=== PATIENT | male | born 1935 | race Caucasian/White ===

== ENCOUNTER 2019-09-13 17:09 | Emergency (ER) | payer MEDICARE, OTHER, SELFPAY ==
[2019-09-13 17:15] VITALS: BP 165/90; PULSE 76; RESP 16; TEMP 36.6; O2SAT 95; BMI 23.6
[2019-09-13 17:30] VITALS: BP 149/95; PULSE 69; RESP 16; O2SAT 95
--- NOTE | 2019-09-13 17:31 | ED_ITS ---
Entered by Arlene Henry, acting as scribe for Corin Ledesma MD HPI - Fall General: Chief Complaint: Fall Stated Complaint: fall hit face Time Seen by Provider: 09/13/19 17:31 Source: patient and RN notes reviewed Mode of arrival: ambulatory Limitations: no limitations History of Present Illness: HPI Narrative: 84 yo male presents to ED with complaints of facial pain after he fell today while walking. He said when he is walking downhill his legs will go too fast and he will fall. He doesn't know why his legs do that. He said he landed on his face today and tried to stop with his hands. He said the R side of his face hurts; he has swelling and abrasions to the R side of his face. His R hand is swollen and has abrasions; he said he has no pain in his R hand. He stated this happened about 1644 today. He is on Plavix. complaint: fall Onset (ago): minute(s) (45 (1644)) Fall from: standing Fall witnessed: no Place fall occurred: home Loss of consciousness: None Prolonged down time: no Symptoms prior to fall: none Context: tripped/slipped Location of injury: face Location of injury - extremities: Right: hand (swelling, abrasions) Severity: moderate Quality: dull and aching Associated symptoms-after fall: Reports no associated symptoms; Denies abdominal pain, chest pain, headache(s) or neck pain Review of Systems Const: Denies: fever, chills, body aches or change in appetite Eyes: Denies: blurry vision or eye discomfort Card: Denies: chest pain Resp: Denies: shortness of breath GI: Denies: abdominal pain, nausea, vomiting or diarrhea Musc: Denies: neck pain or back pain Skin/Breast: Denies: rash Neuro: Denies: headache Ronaldo/Lymph: Denies: easy bruising PFSH ED PFSH: Social History Smoking and tobacco status: never smoked Physical Exam Const: COMMON NORMALS: no apparent distress, oriented x3 and healthy appearing HENMT: COMMON NORMALS: normocephalic and head/scalp atraumatic HEAD & SCALP: normocephalic and atraumatic FACE & SINUS: facial abrasion on the right forehead, maxilla and angle of jaw Eye: COMMON NORMALS: PERRL and EOMs intact bilaterally PUPIL: Yes PERRL Neck/C-Spine: COMMON NORMALS: full ROM and supple Chest: COMMONS NORMALS: inspection of chest normal and palpation of chest normal Resp: COMMON NORMALS: normal respiratory effort, no retractions, no use of accessory muscles and clear to auscultation bilaterally AUSCULTATION: clear to auscultation bilaterally Cardio: COMMON NORMALS: regular rate, regular rhythm and no murmurs RATE: regular rate RHYTHM: regular rhythm GI: COMMON NORMALS: normal to inspection, nondistended, normoactive bowel sounds, soft to palpation, non-tender and no masses PALPATION: Yes soft Extremity: COMMON NORMALS: full ROM RIGHT UPPER EXTREMITY: Yes hand & digits (swelling, abrasions) Neuro: COMMON NORMALS: oriented x3, moves all extremities and no focal motor deficits Psych: COMMON NORMALS: mental status grossly normal, thought process normal and cooperative THOUGHT PROCESS: normal thought process Skin: COMMON NORMALS: no rashes or lesions noted and no wounds GENERAL SKIN EXAM: no rashes or lesions noted Course Vital Signs: Vital signs: Vital Signs Temperature 97.8 F 09/13/19 17:15 Pulse Rate 69 09/13/19 17:30 Respiratory Rate 16 09/13/19 18:25 Blood Pressure 149/95 09/13/19 17:30 Pulse Oximetry 93 09/13/19 18:25 MDM - Fall MDM Narrative: Medical decision making narrative: Patient presents here with facial fracture from a fall. Exam is otherwise negative and had no head injury. We will have him follow-up with ENT and he is stable for discharge. Imaging Data^: Other CT: Radiologist's impression: [address] [address] [address] Scan Report Signed Patient: Des Fuller #: [id number] : 1935Acct#:[id number] Age/Sex: 84 / MADM Date: 09/13/19 Loc: ERRoom/Bed: Attending Dr: Ordering Provider/Ordering MD: Corin Ledesma MD Date of Service: 09/13/19 Procedure(s): CT facial bones wo con* [id number] Accession Number(s): [id number] Report Number: [id number] PROCEDURE INFORMATION: Exam: CT Maxillofacial Without Contrast Exam date and time: 09/13/2019 5:55 PM Age: 84 years old Clinical indication: Injury or trauma; Fall; Initial encounter; Blunt trauma (contusions or hematomas); Cheek bone and head/scalp; Without loss of consciousness; Right TECHNIQUE: Imaging protocol: Computed tomography images of the face without contrast. Total DLP: 742.43 mGy-cm Radiation optimization: All CT scans at this facility use at least one of these dose optimization techniques: automated exposure control; mA and/or kV adjustment per patient size (includes targeted exams where dose is matched to clinical indication); or iterative reconstruction. COMPARISON: CT facial bones wo con* [id number] 11/19/2016 7:53 PM FINDINGS: Orbits: Minimal right inferior orbital emphysema. Right cataract surgery. Sinuses: Air-fluid level in the right maxillary sinus, consistent with hemosinus. The other sinuses are clear. Bones/joints: Mildly displaced right nasal bone fracture with adjacent soft tissue gas. Mildly displaced fractures through the anterior and posterior wall of the right maxillary sinus. Mildly displaced fracture in the floor of the right orbit. No herniated fat or muscle. S shaped deviation of the bony nasal septum without visible fracture. Soft tissues: Right pre maxillary and buccal soft tissue contusion and hematoma. Scattered gas in the right facial soft tissues. CT/CT facial bones wo con* [id number] IMPRESSION: 1. Mildly displaced fractures involving the anterior and posterior wall of the right maxillary sinus and floor of the right orbit. No herniated fat or muscle. 2. Right maxillary hemo sinus. 3. Right facial soft tissue contusion and hematoma. Radiation Dose CTDIVOL = (mGy): DLP = 742.43 (mGy-cm) Dictated By:Ted Arellano Signed By:Ted ArellanoSiesteban Date/Time:09/13/19 1838 DD/ CT Head: Radiologist's impression: [address] [address] [address] Scan Report Signed Patient: Des Fuller #: [id number] : 1935Acct#:[id number] Age/Sex: 84 / MADM Date: 09/13/19 Loc: ERRoom/Bed: Attending Dr: Ordering Provider/Ordering MD: Corin Ledesma MD Date of Service: 09/13/19 Procedure(s): CT head wo con* [id number] Accession Number(s): [id number] Report Number: [id number] PROCEDURE INFORMATION: Exam: CT Head Without Contrast Exam date and time: 09/13/2019 5:55 PM Age: 84 years old Clinical indication: Injury or trauma; Fall TECHNIQUE: Imaging protocol: Computed tomography of the head without contrast. Total DLP: 704.35 mGy-cm Radiation optimization: All CT scans at this facility use at least one of these dose optimization techniques: automated exposure control; mA and/or kV adjustment per patient size (includes targeted exams where dose is matched to clinical indication); or iterative reconstruction. COMPARISON: CT head wo con* [id number] 02/22/2019 8:02 PM FINDINGS: Brain: Moderate diffuse cortical volume loss. Mild hypodensities in supratentorial periventricular and subcortical white matter. No intracranial hemorrhage. Ventricles: Normal. No ventriculomegaly. Bones/joints: Unremarkable. No acute fracture. Sinuses: Visualized sinuses are unremarkable. No fluid levels. Mastoid air cells: Visualized mastoid air cells are well aerated. Soft tissues: Unremarkable. Vasculature: No hyperdense artery. CT/CT head wo con* [id number] IMPRESSION: 1. No acute intracranial abnormality. 2. Mild microangiopathy. 3. Moderate cortical volume loss. Radiation Dose CTDIVOL = (mGy): DLP = 704.35 (mGy-cm) Dictated By:Ted Arellano Signed By:Megan Arellano Date/Time:09/13/19 183 DD/ xr R hand: Attestation: I personally reviewed and interpreted this imaging study as follows: My impression: no acute fx Discharge Plan Discharge Patient Disposition: Home, Self-Care Clinical Impression: Fall Qualifiers: Encounter type: initial encounter Qualified Code(s): W19.XXXA - Unspecified fall, initial encounter Maxillary fracture Qualifiers: Encounter type: initial encounter Fracture type: closed Laterality: right Qualified Code(s): S02.40CA - Maxillary fracture, right side, initial encounter for closed fracture Condition: Stable Prescriptions: No Action Multiple Vitamins Tablet 1 tab PO DAILY RF: 0 carvedilol 12.5 mg tablet 12.5 mg PO BID RF: 0 clopidogrel 75 mg tablet 75 mg PO DAILY RF: 0 Aspir-81 81 mg Tablet,Delayed Release (Dr/Ec) 81 mg PO DAILY RF: 0 tamsulosin 0.4 mg capsule 0.4 mg PO BID RF: 0 amlodipine 10 mg tablet 10 mg PO DAILY RF: 0 levothyroxine 50 mcg tablet 50 mcg PO DAILY RF: 0 pantoprazole 40 mg tablet,delayed release (DR/EC) 40 mg PO DAILY RF: 0 hydrochlorothiazide 12.5 mg capsule 12.5 mg PO DAILY PRN (Reason: UNKNOWN) RF: 0 Nitrostat 0.4 mg Tablet, Sublingual 0.4 mg SUBLINGUAL Q5M PRN (Reason: Chest Pain) RF: 0 levocetirizine 5 mg tablet 5 mg PO DAILY PRN (Reason: UNKNOWN) RF: 0 red yeast rice 600 mg Tablet 600 mg PO DAILY RF: 0 Midkiff-3 350 mg-235 mg- 90 mg-597 mg Capsule,Delayed Release(Dr/Ec) 1 cap PO BEDTIME RF: 0 CoQ-10 1 tab PO DAILY RF: 0 Discharge Orders: Discharge Order (Routine); Ordered 09/13/19 Ordered By: Corin Ledesma Referrals: Chriss Chavira MD [Physician] - Tam Farah DO [Primary Care Provider] - Discharge Diet: Advance as tolerated Discharge Activity: Resume usual activity Patient Instructions: Facial Fracture (ED) Coding Level of Care Code ED Optical Fabricator for Chg Fwd Exam Comprehensive The documentation recorded by the Elaine sullivan Valerie R, accurately reflects the service I personally performed and the decisions made by Baltazar sears Korby, MD Sep 13, 2019 17:09
--- NOTE | 2019-09-13 17:35 | CTR_ITS ---
PROCEDURE INFORMATION: Exam: CT Maxillofacial Without Contrast Exam date and time: 09/13/2019 5:55 PM Age: 84 years old Clinical indication: Injury or trauma; Fall; Initial encounter; Blunt trauma (contusions or hematomas); Cheek bone and head/scalp; Without loss of consciousness; Right TECHNIQUE: Imaging protocol: Computed tomography images of the face without contrast. Total DLP: 742.43 mGy-cm Radiation optimization: All CT scans at this facility use at least one of these dose optimization techniques: automated exposure control; mA and/or kV adjustment per patient size (includes targeted exams where dose is matched to clinical indication); or iterative reconstruction. COMPARISON: CT facial bones wo con* [id number] 11/19/2016 7:53 PM FINDINGS: Orbits: Minimal right inferior orbital emphysema. Right cataract surgery. Sinuses: Air-fluid level in the right maxillary sinus, consistent with hemosinus. The other sinuses are clear. Bones/joints: Mildly displaced right nasal bone fracture with adjacent soft tissue gas. Mildly displaced fractures through the anterior and posterior wall of the right maxillary sinus. Mildly displaced fracture in the floor of the right orbit. No herniated fat or muscle. S shaped deviation of the bony nasal septum without visible fracture. Soft tissues: Right pre maxillary and buccal soft tissue contusion and hematoma. Scattered gas in the right facial soft tissues. CT/CT facial bones wo con* [id number] IMPRESSION: 1. Mildly displaced fractures involving the anterior and posterior wall of the right maxillary sinus and floor of the right orbit. No herniated fat or muscle. 2. Right maxillary hemo sinus. 3. Right facial soft tissue contusion and hematoma. Radiation Dose CTDIVOL = (mGy): DLP = 742.43 (mGy-cm)
--- NOTE | 2019-09-13 17:35 | XRR_ITS ---
PROCEDURE INFORMATION: Exam: XR Right Hand Exam date and time: 09/13/2019 6:59 PM Age: 84 years old Clinical indication: Injury or trauma; Fall; Initial encounter; Blunt trauma (contusions or hematomas; Hand; Right; Injury date: Today TECHNIQUE: Imaging protocol: XR Right hand. Views: Frontal, lateral, and oblique views. COMPARISON: No relevant prior studies available. FINDINGS: Bones/joints: Normal. Soft tissues: Normal. XR/XR hand RT min 3V* [id number] IMPRESSION: No acute findings.
--- NOTE | 2019-09-13 17:35 | CTR_ITS ---
PROCEDURE INFORMATION: Exam: CT Head Without Contrast Exam date and time: 09/13/2019 5:55 PM Age: 84 years old Clinical indication: Injury or trauma; Fall TECHNIQUE: Imaging protocol: Computed tomography of the head without contrast. Total DLP: 704.35 mGy-cm Radiation optimization: All CT scans at this facility use at least one of these dose optimization techniques: automated exposure control; mA and/or kV adjustment per patient size (includes targeted exams where dose is matched to clinical indication); or iterative reconstruction. COMPARISON: CT head wo con* [id number] 02/22/2019 8:02 PM FINDINGS: Brain: Moderate diffuse cortical volume loss. Mild hypodensities in supratentorial periventricular and subcortical white matter. No intracranial hemorrhage. Ventricles: Normal. No ventriculomegaly. Bones/joints: Unremarkable. No acute fracture. Sinuses: Visualized sinuses are unremarkable. No fluid levels. Mastoid air cells: Visualized mastoid air cells are well aerated. Soft tissues: Unremarkable. Vasculature: No hyperdense artery. CT/CT head wo con* [id number] IMPRESSION: 1. No acute intracranial abnormality. 2. Mild microangiopathy. 3. Moderate cortical volume loss. Radiation Dose CTDIVOL = (mGy): DLP = 704.35 (mGy-cm)
[2019-09-13 18:25] VITALS: RESP 16; O2SAT 93
[2019-09-13 19:25] VITALS: BP 185/93; PULSE 66; RESP 16; O2SAT 96
[2019-09-13 19:30] VITALS: BP 185/93; PULSE 72; RESP 18; O2SAT 96
--- NOTE | 2019-09-14 11:15 | DCPLANNER ---
accountant manager had order to schedule a follow up appointment for patient with Dr. Chavira, ENT. accountant manager called the office of Dr. Chavira, spoke with Tiffanie, case specialist was told that patients information would be be reviewed. Clinic will call case specialist and patient with appointment information.
--- NOTE | 2019-09-15 09:04 | DCPLANNER ---
Patient has a follow up appointment scheduled for Monday, September 16, 2019 at 10:[address] Chavira, ENT. Clinic will call patient with appointment information.
--- NOTE | 2019-09-16 12:54 | DCPLANNER ---
Patient did attend appointment scheduled for 09.16.19 with ENT.
== END 2019-09-13 19:31 | disposition home or self-care (01) ==
PROVIDERS: Emergency Provider Emergency Medicine; Family Provider Internal Medicine; PCP Internal Medicine
DX: S02.40CA Maxillary fracture, right side, initial encounter for closed fracture (principal); S02.31XA Fracture of orbital floor, right side, initial encounter for closed fracture; W17.81XA Fall down embankment (hill), initial encounter; Y92.007 Garden or yard of unspecified non-institutional (private) residence as the place of occurrence of the external cause; Z79.01 Long term (current) use of anticoagulants
CPT/HCPCS: 12345; 70450; 70486; 73130; 99281; 99283

== ENCOUNTER → 2019-09-16 09:45 | Outpatient (BNVA) | payer MEDICARE, OTHER, SELFPAY | PROVIDERS: Family Provider Internal Medicine; PCP Internal Medicine; Visit Provider Otolaryngology | DX: R04.0 Epistaxis (principal); S02.40CA Maxillary fracture, right side, initial encounter for closed fracture; W19.XXXA Unspecified fall, initial encounter; R27.8 Other lack of coordination; X58.XXXA Exposure to other specified factors, initial encounter | CPT/HCPCS: 99203; 99214 ==

== ENCOUNTER → 2019-11-08 12:15 | Outpatient (BNVA) | payer MEDICARE, OTHER, SELFPAY | PROVIDERS: Family Provider Internal Medicine; PCP Internal Medicine; Referring Provider Otolaryngology; Visit Provider Specialist | DX: G43.711 Chronic migraine without aura, intractable, with status migrainosus (principal); M46.1 Sacroiliitis, not elsewhere classified; R26.89 Other abnormalities of gait and mobility | CPT/HCPCS: 99214 ==

== ENCOUNTER 2020-01-11 12:43 | Outpatient (CLI) | payer MEDICARE, OTHER, SELFPAY ==
--- NOTE | 2020-01-11 13:30 | USCV_ITS ---
Des Fuller Age: 84 Gender: M : 1935 Exam Date: 01/11/2020 13:01 Ordering Phys: Tree Melton MD ([email or web address]) Technologist: Cresencio Pichardo Exam Location: [facility] [place] Indication: CAROTID STENOSIS Risk Factors: Previous Vascular Surgery: NONE Right Brachial BP: / Left Brachial BP: / Right Left Velocity (cm/s) Spectral Plaque Velocity (cm/s) Spectral Plaque Syst/Diast Broadening Syst/Diast Broadening 79.50/ 11.10 Prox CCA 90.40 / 14.30 73.50/ 8.50 Mid CCA 56.50 / 11.20 68.40/ 12.80 Distal CCA 71.60 / 15.10 174.40/19.10 Prox ICA 157.20/ 27.30 78.90/ 11.80 Mid ICA 73.10 / 11.90 62.90/ 6.20 Distal ICA 50.30 / 9.10 111.60 ECA 200.50 1.07 ICA/CCA 1.29 Antegrade Vertebral Antegrade 24.60/ 6.90 cm/s 29.80/ 9.90 cm/s Bi Subclavian Bi 79.40 96.00 FINDINGS Moderate heterogeneous plaques at the bifurcations and proximal carotid arteries bilaterally. Intimal thickening and minimal plaques in the common carotid arteries bilaterally Antegrade flow in the vertebral arteries bilaterally Normal Doppler flow velocities in the subclavian arteries bilaterally CONCLUSIONS Moderate heterogeneous plaques at the bifurcations and proximal carotid arteries bilaterally with velocity elevation consistent with 50-79% stenosis. Elevated velocity in the external carotid artery on the left side, suggestive of hemodynamically significant stenosis. . Dr Tree Melton MD [facility] (Electronically Signed) Final Date: 11 January 2020 18:00 S
== END 2020-01-11 12:44 | disposition home or self-care (01) ==
LOC: RAD 12:49
PROVIDERS: PCP Internal Medicine; Visit Provider Internal Medicine Cardiovascular Disease
DX: I65.23 Occlusion and stenosis of bilateral carotid arteries (principal)
CPT/HCPCS: 93880

== ENCOUNTER → 2020-04-02 15:33 | Outpatient (BNVA) | payer MEDICARE, OTHER, SELFPAY | PROVIDERS: PCP Internal Medicine; Referring Provider Dermatology; Visit Provider Dermatology | DX: L57.0 Actinic keratosis (principal); L80 Vitiligo; L82.1 Other seborrheic keratosis | CPT/HCPCS: 17000; 17003; 99203 ==

== ENCOUNTER 2020-06-12 08:47 | Outpatient (CLI) | payer MEDICARE, OTHER, SELFPAY ==
--- NOTE | 2020-06-12 09:15 | XR_ITS ---
WS: [id number] ABDOMEN: SUPINE FILM HISTORY: UROLITHIASIS COMPARISON: 12/09/2008 Normal bowel gas pattern. Splenic granulomata. RIGHT convex curvature lumbar spine. Right kidney: 3 mm calcification over the central RIGHT kidney. Not seen on the prior study and may h ave been obscured by bowel content. Left kidney: 2 calcifications project over the LEFT kidney. Upper pole calcification 4 mm and lower p ole calcification 3 mm, no change. XR/XR KUB [id number] IMPRESSION: Bilateral nephrolithiasis.
== END 2020-06-12 08:48 | disposition home or self-care (01) ==
LOC: RAD 08:50
PROVIDERS: PCP Internal Medicine; Visit Provider Urology
DX: N20.0 Calculus of kidney (principal)
CPT/HCPCS: 74018; 81003

== ENCOUNTER 2020-11-26 17:29 | Emergency (ER) | payer MEDICARE, OTHER, SELFPAY ==
[2020-11-26 18:08] VITALS: BP 149/71; PULSE 64; RESP 18; TEMP 36.6; O2SAT 96; BMI 21.4
--- NOTE | 2020-11-26 18:35 | CTR_ITS ---
PROCEDURE INFORMATION: Exam: CT Head Without Contrast Exam date and time: 11/26/2020 6:39 PM Age: 85 years old Clinical indication: Injury or trauma; Blunt trauma (contusions or hematomas); Without loss of consciousness; Injury details: Fall x today. Hit back of right side of head on window. Denies loc. PT is on blood thinners. ; Additional info: Fell and hit head. On blood thinner TECHNIQUE: Imaging protocol: Computed tomography of the head without contrast. Total images: 192 Radiation optimization: All CT scans at this facility use at least one of these dose optimization techniques: automated exposure control; mA and/or kV adjustment per patient size (includes targeted exams where dose is matched to clinical indication); or iterative reconstruction. COMPARISON: CT head wo con* [id number] 09/13/2019 6:19 PM RADIATION DOSE METRICS: Total DLP (mGy-cm): 707.75 FINDINGS: Brain: No evidence of active or acute intracranial pathologic process, hemorrhage, or trauma. No visible evidence of diffuse cerebral edema or generalized demyelination. Mild small vessel ischemic disease with senile periventricular leukomalacia. Cerebral and cerebellar atrophy with ventricular dilatation not inconsistent with the patient's advanced chronological age. Cerebral ventricles: No ventriculomegaly. Bones/joints: Unremarkable. No acute fracture. Paranasal sinuses: Visualized sinuses are unremarkable. No fluid levels. Mastoid air cells: Visualized mastoid air cells are well aerated. Soft tissues: Unremarkable. Other findings: Motion artifact. CT/CT head wo con* [id number] IMPRESSION: No evidence of active or acute intracranial pathologic process, hemorrhage, or trauma. Radiation Dose CTDIVOL = (mGy): DLP = 707.75 (mGy-cm)
--- NOTE | 2020-11-26 18:37 | W.ED.EXTPRO ---
HPI - Extremity Problem General: Chief complaint: Extremity Injury, Upper Stated complaint: FALL/RUE SWELLING, BLEEDING, SKIN TEAR Time Seen by Provider: 11/26/20 18:35 History of Present Illness: HPI Narrative: Patient is an 85-year-old male who comes to the ED after having a fall. Patient is on blood thinners. He states that just prior to arrival he was on his porch trying to hang plant on a hook and he lost his balance and fell into the wall of the house. He hit the right side of his head against the concrete wall of house. Denies any loss of consciousness but states he has a mild headache. He also scraped his right upper arm on wall/windowsill. He now has a skin tear in right upper arm and a hematoma. Patient says he cleaned the wound and then put a bandage over it and wrapped it with an Todd bandage afterwards. He states he took some Tylenol just before coming to the ED to treat his headache. Denies any vision changes, numbness tingling to one side of the body, nausea/vomiting or any other pain to extremities. Associated symptoms: Deny chest pain, fever(s) or rash Review of Systems Const: Denies: fever(s), chills or fatigue Eyes: Denies: change in vision or eye discomfort ENMT: Reports: other (Contusion to right side of head head); Denies: throat pain, odynophagia, nasal discharge or nasal congestion Card: Denies: chest pain, palpitations, edema, swelling of feet/ankles, dyspnea on exertion or orthopnea Resp: Denies: dyspnea, productive cough or non-productive cough GI: Denies: abdominal pain, nausea, vomiting, diarrhea, constipation or hematochezia : Denies: flank pain, difficulty urinating, dysuria or hematuria Musc: Reports: extremity swelling (Hematoma to right upper arm); Denies: neck pain or back pain Skin/Breast: Reports: new lesions (Skin tear to right upper arm); Denies: rash Neuro: Reports: headache(s); Denies: numbness in extremities or weakness in extremities [facility] ED PFSH: Medical History Bilateral carotid artery stenosis BPH (benign prostatic hyperplasia) BPH loc w urin obs/LUTS Coronary artery disease CVA (cerebral vascular accident) GERD (gastroesophageal reflux disease) Hyperlipidemia Hypertension Osteoarthritis Urolithiasis Surgical History H/O lithotripsy History of heart artery stent x8 Family History Father CAD (coronary artery disease) Stroke Mother CAD (coronary artery disease) Other Hyperlipidemia Hypertension Denies family history of Diabetes Clotting disorder Dementia Chronic kidney disease (CKD) Anesthesia complication Bleeding disorder Lung disease Cancer Social History Smoking and tobacco status: never smoked Alcohol intake: never Adopted: No Caregiver/support person: No Lives independently: Yes Marital status: / Current occupational status: retired Physical Exam Const: COMMON NORMALS: no acute distress, patient oriented x3 and alert HENMT: COMMON NORMALS: normocephalic HEAD & SCALP: normocephalic and contusion right parietal Head contusion size: 2 cm; no Diamond's sign and no raccoon eyes MOUTH: Normal oral and palatal mucosa present THROAT: posterior oropharynx normal and uvula midline Eye: COMMON NORMALS: Equal, round and reactive pupils present and EOMs intact bilaterally PUPIL: Yes Equal, round and reactive pupils present Neck/C-Spine: COMMON NORMALS: supple GENERAL: Yes normal visual inspection CERVICAL SPINE: Yes cervical ROM normal, No Cervical spine tenderness, No Paracervical muscle tenderness and No Trapezius muscle tenderness Resp: COMMON NORMALS: normal respiratory effort, No retractions, No use of accessory muscles and clear to auscultation bilaterally AUSCULTATION: clear to auscultation bilaterally Cardio: COMMON NORMALS: regular rate, regular rhythm, S1 normal heart sound present, S2 normal heart sound present, No gallops present (Cardio), No clicks present (Cardio), No murmurs present (Cardio) and Peripheral pulses 2+ throughout RATE: regular rate RHYTHM: regular rhythm HEART SOUNDS: S1 normal heart sound present and S2 normal heart sound present PERIPHERAL PULSES: Peripheral pulses 2+ throughout GI: COMMON NORMALS: Normal to inspection, nondistended, normoactive bowel sounds present, Soft to palpation, non-tender and no masses PALPATION: Yes Soft to palpation : COMMON NORMALS: Yes no CVA tenderness BLADDER/KIDNEY EXAM: Yes no CVA tenderness Back/Pelvis: COMMON NORMALS: no CVA tenderness Extremity: COMMON NORMALS: normal to inspection and full ROM NARRATIVE EXTREMITY EXAM: Patient is a skin tear over the right upper arm. He also has a contusion underneath skin tear area on right upper arm. Patient has full range of motion to right upper arm with no pain. Neurovascular intact to extremities. Exam findings show no concerns of any bone fractures Neuro: COMMON NORMALS: patient oriented x3, CN's II-XII intact bilaterally, moves all extremities, no focal motor deficits and no sensory deficits noted SENSORIUM/ORIENTATION: Yes alert SENSORY EXAM: Yes extremities (intact) MOTOR EXAM: 5/5 motor strength present throughout Skin: NARRATIVE SKIN EXAM: Patient has a skin tear to the right upper arm. He also has a hematoma to his right upper arm as well. GENERAL SKIN EXAM: dry skin Course ED course: I had nurse irrigate skin tear apply some Neosporin and rebandage before discharge. Vital Signs: Vital signs: Vital Signs Temperature 97.9 F 11/26/20 18:08 Pulse Rate 49 L 11/26/20 20:22 Respiratory Rate 18 11/26/20 19:18 Blood Pressure 164/71 11/26/20 20:22 Pulse Oximetry 92 11/26/20 20:22 MDM - Extremity (Nontraumatic) MDM Narrative: Medical decision making narrative: Patient is an 85-year-old male comes to the ED after having a fall at home. Patient currently takes Plavix. Patient said he lost his balance while trying to hang a plant on the porch and fell back into the wall of the house. He hit the right side of his head on wall and his right arm. Reports headache. He has a skin tear and contusion on the right upper arm. He also has a contusion on right parietal side of head. Neuro exam is normal patient has full range of motion in right extremity with no pain. Neurovascular intact distally. CT of head showed no acute findings. Right humerus x-ray showed no acute fractures, but noted some soft tissue swelling. I had nurse irrigate skin tear apply some Neosporin and rebandage. Patient was diagnosed with a contusion of the right upper arm, contusion of scalp and skin tear. Follow-up with PCP in 7 days for reevaluation. Return to ED precautions given. Patient understood and agreed with plan. Imaging Data^: CT Head: Attestation: I personally reviewed and interpreted this imaging study as follows: Radiologist's impression: [address] [address] [address] Scan Report Signed Patient: Des Fuller Unit #: [id number] : 1935 Age/Sex: 85 / M ADM Date: 11/26/20 Loc: ER Room/Bed: Attending Dr: Ordering Provider/Ordering MD: Shawn James Date of Service: 11/26/20 Procedure(s): CT head wo con* [id number] Accession Number(s): [id number] Report Number: [id number] PROCEDURE INFORMATION: Exam: CT Head Without Contrast Exam date and time: 11/26/2020 6:39 PM Age: 85 years old Clinical indication: Injury or trauma; Blunt trauma (contusions or hematomas); Without loss of consciousness; Injury details: Fall x today. Hit back of right side of head on window. Denies loc. PT is on blood thinners. ; Additional info: Fell and hit head. On blood thinner TECHNIQUE: Imaging protocol: Computed tomography of the head without contrast. Total images: 192 Radiation optimization: All CT scans at this facility use at least one of these dose optimization techniques: automated exposure control; mA and/or kV adjustment per patient size (includes targeted exams where dose is matched to clinical indication); or iterative reconstruction. COMPARISON: CT head wo con* [id number] 09/13/2019 6:19 PM RADIATION DOSE METRICS: Total DLP (mGy-cm): 707.75 FINDINGS: Brain: No evidence of active or acute intracranial pathologic process, hemorrhage, or trauma. No visible evidence of diffuse cerebral edema or generalized demyelination. Mild small vessel ischemic disease with senile periventricular leukomalacia. Cerebral and cerebellar atrophy with ventricular dilatation not inconsistent with the patient's advanced chronological age. Cerebral ventricles: No ventriculomegaly. Bones/joints: Unremarkable. No acute fracture. Paranasal sinuses: Visualized sinuses are unremarkable. No fluid levels. Mastoid air cells: Visualized mastoid air cells are well aerated. Soft tissues: Unremarkable. Other findings: Motion artifact. CT/CT head wo con* [id number] IMPRESSION: No evidence of active or acute intracranial pathologic process, hemorrhage, or trauma. Radiation Dose CTDIVOL = (mGy): DLP = 707.75 (mGy-cm) Dictated By: Pa Perez Signed By: Pa Perez Signed Date/Time: 11/26/201954 DD/ 53 Xray Ortho: Attestation: I personally reviewed and interpreted this imaging study as follows: Radiologist's impression: [address] [address] XRay Report Signed Patient: Des Fuller Unit #: [id number] : 1935 Age/Sex: 85 / M ADM Date: 11/26/20 Loc: ER Room/Bed: Attending Dr: Ordering Provider/Ordering MD: Shawn James Date of Service: 11/26/20 Procedure(s): [place] [id number] Accession Number(s): [id number] Report Number: [id number] PROCEDURE INFORMATION: Exam: XR Right Humerus Exam date and time: 11/26/2020 6:55 PM Age: 85 years old Clinical indication: Pain; Upper arm; Right; Additional info: Fall with hematoma to right upper arm TECHNIQUE: Imaging protocol: XR Right humerus. Views: 2 or more views. Total images: 2 COMPARISON: No relevant prior studies available. FINDINGS: Bones/joints: No visible fracture, subluxation, or dislocation. Soft tissues: Soft tissue contusion without visible soft tissue emphysema or radiopaque foreign body. XR/[place] [id number] IMPRESSION: 1. Soft tissue contusion. 2. No visible fracture. Dictated By: Pa Perez Signed By: Pa Perez Signed Date/Time: 11/26/201956 DD/ 54 Discharge Plan Discharge Patient Disposition: Home Clinical Impression: Skin tear Contusion of head Qualifiers: Encounter type: initial encounter Contusion of head detail: scalp Qualified Code(s): S00.03XA - Contusion of scalp, initial encounter Fall as cause of accidental injury at home as place of occurrence Qualifiers: Encounter type: initial encounter Qualified Code(s): W19.XXXA - Unspecified fall, initial encounter Contusion of right upper arm Qualifiers: Encounter type: initial encounter Qualified Code(s): S40.021A - Contusion of right upper arm, initial encounter Condition: Stable Prescriptions: No Action tamsulosin 0.4 mg capsule 0.4 mg PO BID Qty: 180 RF: 3 metformin 500 mg tablet extended release 24 hr 500 mg PO BID RF: 0 carvedilol 25 mg tablet 25 mg PO BID Qty: 180 RF: 3 amlodipine 10 mg tablet 10 mg PO DAILY Qty: 90 RF: 3 hydrochlorothiazide 12.5 mg capsule 12.5 mg PO DAILY PRN (Reason: edema) Qty: 90 RF: 3 clopidogrel 75 mg tablet 75 mg PO DAILY RF: 0 levothyroxine 50 mcg tablet 50 mcg PO DAILY RF: 0 pantoprazole 40 mg tablet,delayed release (DR/EC) 40 mg PO DAILY RF: 0 nitroglycerin [Nitrostat] 0.4 mg Tablet, Sublingual 0.4 mg SUBLINGUAL Q5M PRN (Reason: Chest Pain) RF: 0 levocetirizine 5 mg tablet 5 mg PO DAILY PRN (Reason: UNKNOWN) RF: 0 red yeast rice 600 mg Tablet 600 mg PO DAILY RF: 0 CoQ-10 1 tab PO DAILY RF: 0 Fish Oil 1 cap PO DAILY RF: 0 Discharge Orders: Discharge ED (Routine); Ordered 11/26/20 Ordered By: Shawn James Referrals: Tam Farah DO [Primary Care Provider] - Discharge Diet: Regular Discharge Activity: Increase activity as tolerated Patient Instructions: Fall Prevention for Older Adults (ED), Contusion in Adults (ED), Scalp Contusion in Adults (ED), Skin Tear (ED) Activity Restrictions/Additional Instructions: Follow-up with medical provider as directed in 7 days for reevaluation. Continue taking all previously prescribed home medications. Apply cold pack on sore areas to help with symptoms. Make sure to clean the skin tear daily and keep it wrapped and bandaged up. You can apply triple antibiotic ointment on skin tear as well to help with healing and prevent infection. Return to the ER or your medical provider if condition worsens. Please read and understand discharge instructions. Thank you for choosing [facility] for your healthcare needs today. Please realize this is an emergency room and that we are providing you with a medical screening exam and this may not be complete and all inclusive of all the testing and or work up that you may need to determine your ailment or severity of your illness. It is very important that you follow up as instructed or that you return to the Emergency Department should you have concerns or if your condition changes or worsens in any way. Coding Level of Care Code ED [employer] for Rah Carter Exam Comprehensive
[2020-11-26 18:45] VITALS: PULSE 64; O2SAT 94
--- NOTE | 2020-11-26 18:54 | XRR_ITS ---
PROCEDURE INFORMATION: Exam: XR Right Humerus Exam date and time: 11/26/2020 6:55 PM Age: 85 years old Clinical indication: Pain; Upper arm; Right; Additional info: Fall with hematoma to right upper arm TECHNIQUE: Imaging protocol: XR Right humerus. Views: 2 or more views. Total images: 2 COMPARISON: No relevant prior studies available. FINDINGS: Bones/joints: No visible fracture, subluxation, or dislocation. Soft tissues: Soft tissue contusion without visible soft tissue emphysema or radiopaque foreign body. XR/[place] [id number] IMPRESSION: 1. Soft tissue contusion. 2. No visible fracture.
[2020-11-26] MEDS: tetanus-dipt-pertussis 0.5 mL SDV IM (19:15)
[2020-11-26 19:18] VITALS: BP 162/69; PULSE 62; RESP 18; O2SAT 96
--- NOTE | 2020-11-26 19:23 | PC.PHAR ---
pt states he takes care of his own medications-pt states he is unsure of all the names-medications entered are meds that show they have been filled recently on ext med history and what medications the pt could remember the names of-pt states he is suppose to take aspirin but hasnt taken for a long time-
[2020-11-26] MEDS: neomycin-poly-bacitracin oint 0.9 gm Pkt 1 APPLIC TOPICAL (20:10)
[2020-11-26 20:22] VITALS: BP 164/71; PULSE 49; O2SAT 92
== END 2020-11-26 20:23 | disposition home or self-care (01) ==
PROVIDERS: Emergency Provider Physician Assistant; PCP Internal Medicine
DX: S00.03XA Contusion of scalp, initial encounter (principal); S40.021A Contusion of right upper arm, initial encounter; Z79.02 Long term (current) use of antithrombotics/antiplatelets; Z79.84 Long term (current) use of oral hypoglycemic drugs; S41.111A Laceration without foreign body of right upper arm, initial encounter; I25.10 Atherosclerotic heart disease of native coronary artery without angina pectoris; Z86.73 Personal history of transient ischemic attack (TIA), and cerebral infarction without residual deficits; E78.5 Hyperlipidemia, unspecified; I10 Essential (primary) hypertension; W18.39XA Other fall on same level, initial encounter; Z23 Encounter for immunization
CPT/HCPCS: 70450; 73060; 90471; 90715; 99283

== ENCOUNTER 2020-11-30 16:37 | Emergency (ER) | payer MEDICARE, OTHER, SELFPAY ==
[2020-11-30 16:43] VITALS: BP 168/77; PULSE 83; RESP 18; TEMP 36.6; O2SAT 95; BMI 21.4
--- NOTE | 2020-11-30 17:24 | CTR_ITS ---
PROCEDURE INFORMATION: Exam: CT Cervical Spine Without Contrast Exam date and time: 11/30/2020 6:14 PM Age: 85 years old Clinical indication: Neck pain; Additional info: C/O SCHREIBER w R vision changes and neck soreness after fall 5 days ago TECHNIQUE: Imaging protocol: Computed tomography images of the cervical spine without contrast. Total images: 328 Radiation optimization: All CT scans at this facility use at least one of these dose optimization techniques: automated exposure control; mA and/or kV adjustment per patient size (includes targeted exams where dose is matched to clinical indication); or iterative reconstruction. COMPARISON: CTA Head/Neck [id number] 12/12/2018 10:39 AM RADIATION DOSE METRICS: Total DLP (mGy-cm): 359.29 FINDINGS: Bones/joints: No acute fracture. Mild reversal normal cervical lordosis. Degenerative disease with spondylosis deformans C5, C6, and to a less significant degree C7. Levoscoliosis. Right-sided facet arthrosis most advanced C3/C4, C4/C5, and C5/C6. Degenerative disease of the joints of [place]. Discs/Spinal canal/Neural foramina: Moderate right neural foramina stenosis C3/C4. Mild right neural foraminal narrowing C4/C5. No visible significant posterior annular disc bulge or herniated nucleus pulposis of that would result in significant central canal stenosis. Lungs: Lung apices are unremarkable for age. Soft tissues: Unremarkabl for age e. CT/CT cervical spin wo con* [id number] IMPRESSION: No acute findings. Radiation Dose CTDIVOL = (mGy): DLP = 359.29 (mGy-cm)
--- NOTE | 2020-11-30 17:24 | CTR_ITS ---
PROCEDURE INFORMATION: Exam: CT Head Without Contrast Exam date and time: 11/30/2020 6:12 PM Age: 85 years old Clinical indication: Visual disturbance; Additional info: C/O SCHREIBER w R vision changes and neck soreness after fall 5 days ago TECHNIQUE: Imaging protocol: Computed tomography of the head without contrast. Total images: 175 Radiation optimization: All CT scans at this facility use at least one of these dose optimization techniques: automated exposure control; mA and/or kV adjustment per patient size (includes targeted exams where dose is matched to clinical indication); or iterative reconstruction. COMPARISON: CT head wo con* [id number] 11/26/2020 6:54 PM RADIATION DOSE METRICS: Total DLP (mGy-cm): 702.39 FINDINGS: Brain: Cerebral arteriosclerosis. No evidence of active or acute intracranial pathologic process, hemorrhage, or trauma. Mild small vessel ischemic disease with senile periventricular leukomalacia. Cerebral and cerebellar atrophy with ventricular dilatation not inconsistent with the patient's advanced chronological age. No visible dense MCA or insular ribbon sign. 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 Cerebral ventricles: Patent cavum septum pellucidum. Paranasal sinuses: Visualized sinuses are unremarkable. No fluid levels. Mastoid air cells: Visualized mastoid air cells are well aerated. Bones/joints: Unremarkable. No acute fracture. Soft tissues: Unremarkable. CT/CT head wo con* [id number] IMPRESSION: 1. Stable CT brain. 2. No evidence of active or acute intracranial pathologic process, hemorrhage, or trauma. Radiation Dose CTDIVOL = (mGy): DLP = 702.39 (mGy-cm)
--- NOTE | 2020-11-30 17:26 | ED_ITS ---
HPI - General Adult General: Chief complaint: Headache Stated complaint: Lower Back Pain/Trouble Seeing in R. Eye Time Seen by Provider: 11/30/20 17:15 History of Present Illness: HPI narrative: Patient said he had right eye vision problems earlier went to urgent care they sent him up here. Said his vision cleared up but his right side of his neck hurts. Said this is all occurred since his fall on Thursday night when he was seen here in the ER had negative radiology studies. Patient is on blood thinners. Has had a headache. Had a stroke in the last year. Onset (ago): hour(s) Associated symptoms: Deny chest pain, dyspnea, headache(s), nausea, rash or vomiting Review of Systems Const: Denies: fever(s), chills or body aches Eyes: Reports: change in vision (Right eye blurry vision now improved); Denies: blurry vision ENMT: Denies: throat pain or nasal congestion Card: Denies: chest pain or dyspnea on exertion Resp: Denies: dyspnea, productive cough or non-productive cough GI: Denies: abdominal pain, nausea or vomiting : Denies: difficulty urinating Musc: Reports: neck pain; Denies: extremity pain Skin/Breast: Denies: rash Neuro: Denies: headache(s) Psych: Denies: anxiety or depression Ronaldo/Lymph: Denies: easy bruising PFSH ED PFSH: Medical History Bilateral carotid artery stenosis BPH (benign prostatic hyperplasia) BPH loc w urin obs/LUTS Coronary artery disease CVA (cerebral vascular accident) GERD (gastroesophageal reflux disease) Hyperlipidemia Hypertension Osteoarthritis Urolithiasis Surgical History H/O lithotripsy History of heart artery stent x8 Family History Father CAD (coronary artery disease) Stroke Mother CAD (coronary artery disease) Other Hyperlipidemia Hypertension Denies family history of Diabetes Clotting disorder Dementia Chronic kidney disease (CKD) Anesthesia complication Bleeding disorder Lung disease Cancer Social History Smoking and tobacco status: never smoked Alcohol intake: never Adopted: No Caregiver/support person: No Lives independently: Yes Marital status: / Current occupational status: retired Physical Exam Const: COMMON NORMALS: no acute distress, average body habitus and patient oriented x3 HENMT: COMMON NORMALS: normocephalic HEAD & SCALP: normal to inspection and normocephalic FACE & SINUS: normal facial exam Eye: COMMON NORMALS: conjunctivae normal GENERAL EYE: appearance normal, both eyes and all related structures CONJUNCTIVA: Yes conjunctivae normal Neck/C-Spine: COMMON NORMALS: no JVD CERVICAL SPINE: Yes cervical ROM normal and Yes Paracervical muscle tenderness (Right side) Chest: COMMONS NORMALS: normal inspection of the chest Resp: COMMON NORMALS: normal respiratory effort and clear to auscultation bilaterally AUSCULTATION: clear to auscultation bilaterally Cardio: COMMON NORMALS: no JVD, regular rate and regular rhythm RATE: regular rate RHYTHM: regular rhythm GI: COMMON NORMALS: Normal to inspection, nondistended, normoactive bowel sounds present Extremity: COMMON NORMALS: normal to inspection and full ROM Neuro: COMMON NORMALS: patient oriented x3 and CN's II-XII intact bilaterally SPEECH: abnormal speech (Speech is somewhat slurred since stroke) Course Vital Signs: Vital signs: Vital Signs Temperature 97.8 F 11/30/20 16:43 Pulse Rate 83 11/30/20 16:43 Respiratory Rate 18 11/30/20 16:43 Blood Pressure 168/77 11/30/20 16:43 Pulse Oximetry 95 11/30/20 16:43 MDM - General Adult MDM Narrative: Medical decision making narrative: Radiology studies negative. Patient had no similar complaints during his visit here in the ER. Discharge Plan Discharge Patient Disposition: Home Clinical Impression: Headache Qualifiers: Headache type: tension-type Headache chronicity pattern: acute headache Intractability: intractable Qualified Code(s): G44.201 - Tension-type headache, unspecified, intractable Condition: Stable Prescriptions: No Action metformin 500 mg tablet extended release 24 hr 500 mg PO BID@0700,1800 RF: 0 hydrochlorothiazide 12.5 mg capsule 12.5 mg PO DAILY PRN (Reason: edema) Qty: 90 RF: 3 amlodipine 10 mg tablet 10 mg PO DAILY@0700 RF: 0 carvedilol 25 mg tablet 25 mg PO BID@0700,1800 RF: 0 tamsulosin 0.4 mg capsule 0.4 mg PO BID@0700,1800 RF: 0 clopidogrel 75 mg tablet 75 mg PO DAILY@0700 RF: 0 levothyroxine 50 mcg tablet 50 mcg PO DAILY@0700 RF: 0 pantoprazole 40 mg tablet,delayed release (DR/EC) 40 mg PO DAILY@0700 RF: 0 nitroglycerin [Nitrostat] 0.4 mg Tablet, Sublingual 0.4 mg SUBLINGUAL Q5M PRN (Reason: Chest Pain) RF: 0 levocetirizine 5 mg tablet 5 mg PO DAILY PRN (Reason: UNKNOWN) RF: 0 red yeast rice 600 mg Tablet 600 mg PO DAILY@0700 RF: 0 CoQ-10 1 tab PO DAILY@0700 RF: 0 Fish Oil 1 cap PO DAILY@0700 RF: 0 Discharge Orders: Discharge ED (Routine); Ordered 11/30/20 Ordered By: Jonnathan Dennison Referrals: Tam Farah DO [Primary Care Provider] - Discharge Diet: Usual diet Discharge Activity: Resume usual activity Patient Instructions: Acute Headache (ED) Activity Restrictions/Additional Instructions: Follow-up your family medical provider as needed. Can return here if worsening symptoms. Coding Level of Care Code ED [employer] for [employer] Exam Comprehensive
== END 2020-11-30 19:07 | disposition home or self-care (01) ==
PROVIDERS: Emergency Provider Nurse Practitioner Family; PCP Internal Medicine
DX: G44.201 Tension-type headache, unspecified, intractable (principal); Z79.02 Long term (current) use of antithrombotics/antiplatelets; Z79.84 Long term (current) use of oral hypoglycemic drugs; Z86.73 Personal history of transient ischemic attack (TIA), and cerebral infarction without residual deficits; E78.5 Hyperlipidemia, unspecified; I10 Essential (primary) hypertension
CPT/HCPCS: 70450; 72125; 99282

== ENCOUNTER 2021-01-11 11:56 | Emergency (ER) | payer MEDICARE, OTHER, SELFPAY ==
[2021-01-11 12:12] VITALS: BP 157/72; PULSE 62; RESP 15; O2SAT 95; BMI 22.1
--- NOTE | 2021-01-11 13:06 | W.ED.EXTPRO ---
HPI - Extremity Problem General: Chief complaint: Extremity Problem,Nontraumatic Stated complaint: RLE PAIN/SWELLING Time Seen by Provider: 01/11/21 12:55 Source: patient Mode of arrival: ambulatory Limitations: no limitations History of Present Illness: HPI Narrative: Patient is a nice 85-year-old male who presents to ED today along with his for complaints of bilateral lower leg swelling. Patient tells me symptoms have been present over the past year. He states legs are better when he first wakes up in the morning and worsens throughout the day. MD Complaint: extremity swelling Onset (ago): year(s) Pain Consistency: intermittent Location: left, right and lower extremity Radiation: none Relieving factors: elevation Exacerbating factors: walking Associated symptoms: Reports no associated symptoms; Deny chest pain or fever(s) Review of Systems Const: Denies: fever(s), chills, body aches, fatigue or malaise Eyes: Denies: change in vision or blurry vision Card: Reports: swelling of feet/ankles; Denies: chest pain, palpitations, irregular heart rhythm, edema, lightheadedness, syncope, pre-syncope, dyspnea on exertion, orthopnea, leg pain with exertion or acrocyanosis Resp: Denies: dyspnea GI: Denies: abdominal pain, nausea or vomiting Musc: Reports: extremity swelling and joint swelling; Denies: neck pain or back pain Neuro: Denies: numbness in extremities, weakness in extremities or sensory changes PFS ED PFSH: Medical History Bilateral carotid artery stenosis BPH (benign prostatic hyperplasia) BPH loc w urin obs/LUTS Coronary artery disease CVA (cerebral vascular accident) GERD (gastroesophageal reflux disease) Hyperlipidemia Hypertension Osteoarthritis Urolithiasis Surgical History H/O lithotripsy History of heart artery stent x8 Family History Father CAD (coronary artery disease) Stroke Mother CAD (coronary artery disease) Other Hyperlipidemia Hypertension Denies family history of Diabetes Clotting disorder Dementia Chronic kidney disease (CKD) Anesthesia complication Bleeding disorder Lung disease Cancer Social History Smoking and tobacco status: never smoked Alcohol intake: never Adopted: No Caregiver/support person: No Lives independently: Yes Marital status: / Current occupational status: retired Physical Exam Const: COMMON NORMALS: no acute distress, average body habitus, patient oriented x3, no limitations, healthy appearing, alert and well nourished GENERAL APPEARANCE: cooperative Resp: COMMON NORMALS: normal respiratory effort and clear to auscultation bilaterally AUSCULTATION: clear to auscultation bilaterally Cardio: COMMON NORMALS: regular rate and regular rhythm RATE: regular rate RHYTHM: regular rhythm Extremity: COMMON NORMALS: full ROM, capillary refill normal and no calf tenderness OTHER: bilateral R>L 1+ pitting edema and ankle swelling; R ankle with mild erythema that he states is normal; NV intact Neuro: COMMON NORMALS: patient oriented x3, moves all extremities, no focal motor deficits, no sensory deficits noted and gait normal SENSORIUM/ORIENTATION: Yes alert Course Vital Signs: Vital signs: Vital Signs Pulse Rate 62 01/11/21 12:12 Respiratory Rate 15 01/11/21 12:12 Blood Pressure 157/72 01/11/21 12:12 Pulse Oximetry 95 01/11/21 12:12 MDM - Extremity (Nontraumatic) MDM Narrative: Medical decision making narrative: Symptoms of been present for over a year. Bilateral legs appear to be perfused adequately. No signs/symptoms of a DVT. Have no concern for septic joint or cellulitis. Discussed symptomatic treatment with compression stockings and elevation at this time. Discussed with him how based on length of symptoms this is certainly a non-emergent complaint and ideally we would like him to follow up with primary care. He verbalized understanding and agrees to follow up. Discharge Plan Discharge Patient Disposition: Home Clinical Impression: Bilateral edema of lower extremity Condition: Stable Prescriptions: No Action metformin 500 mg tablet extended release 24 hr 500 mg PO BID@0700,1800 RF: 0 hydrochlorothiazide 12.5 mg capsule 12.5 mg PO DAILY PRN (Reason: edema) Qty: 90 RF: 3 amlodipine 10 mg tablet 10 mg PO DAILY@0700 RF: 0 carvedilol 25 mg tablet 25 mg PO BID@0700,1800 RF: 0 tamsulosin 0.4 mg capsule 0.4 mg PO BID@0700,1800 RF: 0 clopidogrel 75 mg tablet 75 mg PO DAILY@0700 RF: 0 levothyroxine 50 mcg tablet 50 mcg PO DAILY@0700 RF: 0 pantoprazole 40 mg tablet,delayed release (DR/EC) 40 mg PO DAILY@0700 RF: 0 nitroglycerin [Nitrostat] 0.4 mg Tablet, Sublingual 0.4 mg SUBLINGUAL Q5M PRN (Reason: Chest Pain) RF: 0 levocetirizine 5 mg tablet 5 mg PO DAILY PRN (Reason: UNKNOWN) RF: 0 red yeast rice 600 mg Tablet 600 mg PO DAILY@0700 RF: 0 CoQ-10 1 tab PO DAILY@0700 RF: 0 Fish Oil 1 cap PO DAILY@0700 RF: 0 Discharge Orders: Discharge ED (Routine); Ordered 01/11/21 Ordered By: Myah Huber Referrals: Tam Farah DO [Primary Care Provider] - Activity Restrictions/Additional Instructions: As we discussed at this time I would try compression stockings to help with the swelling as well as elevating the extremity as much as possible. You have indicated symptoms have been present for over a year. I did not feel any emergent testing was indicated today but I would like you to follow up with your primary care provider when you can so they may further evaluate your concerns. Coding Level of Care Code ED Vocational Rehabilitation Specialist for Rah Carter
== END 2021-01-11 13:39 | disposition home or self-care (01) ==
PROVIDERS: Emergency Provider Physician Assistant; PCP Internal Medicine
DX: R60.0 Localized edema (principal); Z79.84 Long term (current) use of oral hypoglycemic drugs; Z79.02 Long term (current) use of antithrombotics/antiplatelets; I25.10 Atherosclerotic heart disease of native coronary artery without angina pectoris; Z86.73 Personal history of transient ischemic attack (TIA), and cerebral infarction without residual deficits; E78.5 Hyperlipidemia, unspecified; I10 Essential (primary) hypertension
CPT/HCPCS: 99281

== ENCOUNTER → 2021-03-14 15:25 | Outpatient (BNVA) | payer MEDICARE, OTHER, SELFPAY | PROVIDERS: PCP Internal Medicine; Visit Provider Internal Medicine Cardiovascular Disease | DX: R06.02 Shortness of breath (principal); R60.0 Localized edema; I50.33 Acute on chronic diastolic (congestive) heart failure; Z79.01 Long term (current) use of anticoagulants; I77.9 Disorder of arteries and arterioles, unspecified; I65.23 Occlusion and stenosis of bilateral carotid arteries; I11.0 Hypertensive heart disease with heart failure; I25.10 Atherosclerotic heart disease of native coronary artery without angina pectoris; E78.2 Mixed hyperlipidemia | CPT/HCPCS: 80048; 83880; 85025 ==

== ENCOUNTER 2021-12-09 17:17 | Emergency (ER) | payer MEDICARE, OTHER, SELFPAY ==
[2021-12-09 17:25] VITALS: BP 201/78; PULSE 56; RESP 18; TEMP 36.1; O2SAT 97; BMI 22.1
--- NOTE | 2021-12-09 17:34 | CTR_ITS ---
PROCEDURE INFORMATION: Exam: CT Head Without Contrast Exam date and time: 12/09/2021 5:55 PM Age: 86 years old Clinical indication: Injury or trauma; Fall; Laceration; Without residual foreign body; Jaw or chin; Additional info: Fall injury TECHNIQUE: Imaging protocol: Computed tomography of the head without contrast. Radiation optimization: All CT scans at this facility use at least one of these dose optimization techniques: automated exposure control; mA and/or kV adjustment per patient size (includes targeted exams where dose is matched to clinical indication); or iterative reconstruction. COMPARISON: CT head wo con* [id number] 11/30/2020 6:12 PM RADIATION DOSE METRICS: Total DLP (mGy-cm): 817.24 FINDINGS: Brain: No hemorrhage. No edema. Moderate diffuse cerebral atrophy. No significant white matter disease. No mass effect. Cerebral ventricles: No ventriculomegaly. Paranasal sinuses: Visualized sinuses are unremarkable. No fluid levels. Mastoid air cells: Visualized mastoid air cells are well aerated. Bones/joints: Unremarkable. No acute fracture. Soft tissues: Unremarkable. CT/CT head wo con* [id number] IMPRESSION: No acute intracranial abnormality.
--- NOTE | 2021-12-09 17:34 | W.ED.FALL ---
HPI - Fall General: Chief Complaint: Fall Stated Complaint: fall face lac Time Seen by Provider: 12/09/21 17:33 History of Present Illness: 86-year-old male patient reports he was walking outside and lost his balance while walking near a ditch causing him to fall and strike a piece of concrete with the right side of his face. Patient sustained a laceration to the right lateral jaw, abrasion to the right cheek, and some pain and discomfort to the right clavicle. Patient denies any loss of consciousness. Patient reports he has problems with balance due to weakness in both legs. Patient has a history of coronary artery disease, hypertension, hyperlipidemia, migraine headaches, renal calculi, and bilateral carotid stenosis. Patient is alert and oriented and responding appropriate questions. Associated symptoms-after fall: Denies chest pain Review of Systems General: Reports: 10 or more systems reviewed and unremarkable except in HPI and below Const: Denies: fever(s) ENMT: Denies: throat pain or odynophagia Card: Denies: chest pain Resp: Denies: dyspnea GI: Denies: nausea or vomiting Musc: Reports: joint pain (Right shoulder area and clavicle) Skin/Breast: Reports: new lesions PFSH ED PFSH: Medical History Bilateral carotid artery stenosis BPH (benign prostatic hyperplasia) BPH loc w urin obs/LUTS Coronary artery disease CVA (cerebral vascular accident) GERD (gastroesophageal reflux disease) Hyperlipidemia Hypertension Osteoarthritis Urolithiasis Surgical History H/O lithotripsy History of heart artery stent x8 Family History Father CAD (coronary artery disease) Stroke Mother CAD (coronary artery disease) Other Hyperlipidemia Hypertension Denies family history of Diabetes Clotting disorder Dementia Chronic kidney disease (CKD) Anesthesia complication Bleeding disorder Lung disease Cancer Social History Smoking and tobacco status: never smoked Alcohol intake: never Adopted: No Caregiver/support person: No Lives independently: Yes Marital status: / Current occupational status: retired Physical Exam Const: COMMON NORMALS: alert HENMT: FACE & SINUS: abrasion (Right facial cheek) on the right and laceration (Right jaw) MOUTH: Normal oral and palatal mucosa present TEETH & GINGIVA: Yes other (No fracture or injury noted) Neck/C-Spine: COMMON NORMALS: full ROM Chest: CHEST: Yes tenderness (Right clavicle) Resp: COMMON NORMALS: normal respiratory effort and clear to auscultation bilaterally AUSCULTATION: clear to auscultation bilaterally Cardio: COMMON NORMALS: regular rhythm RATE: bradycardic RHYTHM: regular rhythm GI: PALPATION: No Tenderness to palpation present (GI) Back/Pelvis: COMMON NORMALS: thoracic and lumbar spine normal to inspection Extremity: COMMON NORMALS: normal to inspection Neuro: AI COMA SCALE: document GCS findings [place] coma scale eye opening: Spontaneous Ai coma scale verbal response: Orientated Ai coma scale motor response: Obey commands [place] coma scale total score: 15 SENSORIUM/ORIENTATION: Yes alert Skin: TRAUMA: abrasion (Right facial cheek) and laceration (Right jaw) Procedures Laceration Laceration 1: Site: face Side (If applicable): right Size (cm): 5 Depth: simple, single layer Local Anesthetic: lidocaine 1% Amount of anesthesia used (mL): 6 Pre-repair: wound explored, irrigated extensively and deep structures intact Skin layer closed with: vicryl Size (cm): 4-0 Number of sutures: 12 Technique: simple, interrupted Course Vital Signs: Vital signs: Vital Signs Temperature 96.9 F L 12/09/21 17:25 Pulse Rate 56 L 12/09/21 17:25 Respiratory Rate 18 12/09/21 17:25 Blood Pressure 201/78 12/09/21 17:25 Pulse Oximetry 97 12/09/21 17:25 MDM - Fall Medical Decision Making Patient comes in today for evaluations of injury to the right side of the face. Patient was out walking and came up on some uneven ground near the ditch causing him to fall into the ditch and strike his head against a piece of concrete. Patient has a laceration to the right jaw. Patient has a history of unsteady gait. Patient has a abrasion to the right facial cheek and anterior chest wall. Lungs are clear to auscultation. Patient moves all extremities well. Patient moves neck without difficulty. Differential diagnosis includes intracranial bleeding, fracture of the face, clavicle fracture, laceration of the face. CT of the head neck and facial bones indicated no fracture or intracranial bleeding. X-ray of the right clavicle had no fracture. Wound was closed with sutures. Reviewed exam with patient and family with recommendations for treatment and follow-up. Family reported understanding and agreed to plans along with patient. Lab Data Radiology Impressions Head CT 12/09/21 17:34 IMPRESSION: No acute intracranial abnormality. Cervical Spine CT 12/09/21 17:37 IMPRESSION: No acute findings. Clavicle X-Ray 12/09/21 17:37 IMPRESSION: No acute findings. Face CT 12/09/21 17:37 IMPRESSION: Laceration to the right jaw. No acute osseous maxillofacial abnormalities. Discharge Plan Discharge Patient Disposition: Home Clinical Impression: Abrasion, multiple sites Fall from standing Qualifiers: Encounter type: initial encounter Qualified Code(s): W19.XXXA - Unspecified fall, initial encounter Facial laceration Qualifiers: Encounter type: initial encounter Qualified Code(s): S01.81XA - Laceration without foreign body of other part of head, initial encounter Condition: Stable Prescriptions: New cephalexin 500 mg tablet 500 mg PO Q8H 7 Days Qty: 21 0RF bacitracin 500 unit/gram ointment 1 applic topical BID Qty: 28 0RF No Action hydrochlorothiazide 12.5 mg capsule 12.5 mg PO DAILY PRN (Reason: edema) Qty: 90 3RF tamsulosin 0.4 mg capsule See Rx Instructions .ROUTE .COMPLEX Qty: 60 12RF Dose Instruction: TAKE 1 CAPSULE BY MOUTH TWO TIMES A DAY Rx Instructions: TAKE 1 CAPSULE BY MOUTH TWO TIMES A DAY carvedilol 25 mg tablet See Rx Instructions .ROUTE .COMPLEX Qty: 180 3RF Dose Instruction: TAKE 1 TABLET BY MOUTH TWO TIMES A DAY Rx Instructions: TAKE 1 TABLET BY MOUTH TWO TIMES A DAY losartan 50 mg tablet See Rx Instructions .ROUTE .COMPLEX Qty: 90 3RF Dose Instruction: TAKE ONE TABLET BY MOUTH EVERY DAY Rx Instructions: TAKE ONE TABLET BY MOUTH EVERY DAY clopidogrel 75 mg tablet 75 mg PO DAILY@0700 0RF levothyroxine 50 mcg tablet 50 mcg PO DAILY@0700 0RF pantoprazole 40 mg tablet,delayed release (DR/EC) 40 mg PO DAILY@0700 0RF nitroglycerin [Nitrostat] 0.4 mg Tablet, Sublingual 0.4 mg SUBLINGUAL Q5M PRN (Reason: Chest Pain) 0RF levocetirizine 5 mg tablet 5 mg PO DAILY PRN (Reason: UNKNOWN) 0RF red yeast rice 600 mg Tablet 600 mg PO DAILY@0700 0RF CoQ-10 1 tab PO DAILY@0700 0RF Fish Oil 1 cap PO DAILY@0700 0RF Discharge Orders: Discharge ED (Routine); Ordered 12/09/21 Ordered By: Marcus Hdez Referrals: Tam Farah, [Primary Care Provider] - Activity Restrictions/Additional Instructions: Keep wound clean and dry as much as possible. Wash wounds twice daily apply some bacitracin ointment and cover if needed. Give cephalexin 500 mg twice a day for 7 days. Sutures need to come out in 7 to 10 days. Abrasions clean with gentle soap and water and then apply bacitracin ointment. Use acetaminophen or ibuprofen as needed for pain. Follow-up with primary care in 3 days for recheck. Coding Level of Care Code ED Autism Specialist for Rah Fwd Exam Comprehensive
--- NOTE | 2021-12-09 17:37 | CTR_ITS ---
PROCEDURE INFORMATION: Exam: CT Cervical Spine Without Contrast Exam date and time: 12/09/2021 6:04 PM Age: 86 years old Clinical indication: Injury or trauma; Fall; Without foreign body; Patient HX: Laceration to chin; Additional info: Fall injury TECHNIQUE: Imaging protocol: Computed tomography images of the cervical spine without contrast. Radiation optimization: All CT scans at this facility use at least one of these dose optimization techniques: automated exposure control; mA and/or kV adjustment per patient size (includes targeted exams where dose is matched to clinical indication); or iterative reconstruction. COMPARISON: CT cervical spin wo con* [id number] 11/30/2020 6:14 PM RADIATION DOSE METRICS: Total DLP (mGy-cm): 483.04 FINDINGS: Bones/joints: No acute fracture. Normal alignment. Discs/Spinal canal/Neural foramina: No significant disc protrusion. No severe spinal canal stenosis. No significant neural foraminal narrowing. Lungs: Lung apices are normal. Soft tissues: Unremarkable. CT/CT cervical spin wo con* [id number] IMPRESSION: No acute findings.
--- NOTE | 2021-12-09 17:37 | CTR_ITS ---
PROCEDURE INFORMATION: Exam: CT Maxillofacial Without Contrast Exam date and time: 12/09/2021 6:00 PM Age: 86 years old Clinical indication: Injury or trauma; Fall; Laceration; Jaw; Right; Not specified; Additional info: Fall injury TECHNIQUE: Imaging protocol: Computed tomography images of the face without contrast. Radiation optimization: All CT scans at this facility use at least one of these dose optimization techniques: automated exposure control; mA and/or kV adjustment per patient size (includes targeted exams where dose is matched to clinical indication); or iterative reconstruction. COMPARISON: CT facial bones wo con* [id number] 09/13/2019 6:26 PM RADIATION DOSE METRICS: Total DLP (mGy-cm): 774.67 FINDINGS: Orbital cavities: Orbits are normal. Globes are unremarkable. Bones/joints: No acute fracture. Paranasal sinuses: Normal. No air-fluid levels. Soft tissues: Laceration to the right jaw. CT/CT facial bones wo con* [id number] IMPRESSION: Laceration to the right jaw. No acute osseous maxillofacial abnormalities.
--- NOTE | 2021-12-09 17:37 | XRR_ITS ---
PROCEDURE INFORMATION: Exam: XR Right Clavicle, Complete Exam date and time: 12/09/2021 6:21 PM Age: 86 years old Clinical indication: Pain; Shoulder; Right; Additional info: Pain tenderness TECHNIQUE: Imaging protocol: XR Right clavicle complete. Views: Any number of views. COMPARISON: CT cervical spin wo con* [id number] 12/09/2021 6:04 PM FINDINGS: Bones/joints: Right clavicle is intact. Negative for fracture. Soft tissues: Normal. XR/[place] [id number] IMPRESSION: No acute findings.
[2021-12-09] MEDS: cephALEXin 500 mg Capsule PO (18:23)
[2021-12-09] MEDS: tetanus-dipt-pertussis 0.5 mL SDV IM (18:23)
[2021-12-09] MEDS: acetaminophen 500 mg Tablet 1000 MG PO (18:23)
== END 2021-12-09 19:20 | disposition home or self-care (01) ==
PROVIDERS: Emergency Provider Nurse Practitioner Family; PCP Internal Medicine
DX: S01.81XA Laceration without foreign body of other part of head, initial encounter (principal); Z23 Encounter for immunization; W01.198A Fall on same level from slipping, tripping and stumbling with subsequent striking against other object, initial encounter
CPT/HCPCS: 12013; 70450; 70486; 72125; 73000; 90471; 90715; 99283

== ENCOUNTER 2021-12-15 20:25 | Emergency (ER) | payer MEDICARE, OTHER, SELFPAY ==
--- NOTE | 2021-12-15 20:30 | XRR_ITS ---
PROCEDURE INFORMATION: Exam: XR Chest Exam date and time: 12/15/2021 9:34 PM Age: 86 years old Clinical indication: Sternal or substernal pain; Additional info: Cp TECHNIQUE: Imaging protocol: XR of the chest. Views: 1 view. COMPARISON: CR XR chest 2V* [id number] 08/13/2020 10:06 AM FINDINGS: Lungs: Several calcified right lung granulomas. Pleural spaces: Unremarkable. No pleural effusion. No pneumothorax. Heart/Mediastinum: Calcified mediastinal and hilar lymph nodes. Bones/joints: Unremarkable. XR/XR chest 1V portable [id number] IMPRESSION: 1. Negative for infiltrate. 2. Calcified mediastinal and hilar lymph nodes. 3. Several calcified right lung granulomas.
--- NOTE | 2021-12-15 20:30 | ECG_ITS ---
[facility] Test Date: 2021-12-15 Pat Name: Des Fuller Department: Room: Gender: Male Linux Support Engineer: : [id number] Requested By: Corin Ledesma Order Number: [id number] Mar MD: Tree Melton M.D. Measurements Intervals [place] Rate: 52 P: 59 LA: 147 QRS: 64 QRSD: 97 T: 100 QT: 432 QTc: 402 Interpretive Statements SINUS BRADYCARDIA NONSPECIFIC T-WAVE ABNORMALITY Compared to ECG 01/15/2019 00:39:46 T-wave abnormality now present First degree AV block no longer present Poor R-wave progression no longer present Electronically Signed On 12-16-2021 19:38:47 CDT by Tree Melton M.D. [email or web address]
[2021-12-15 20:43] VITALS: BP 130/65; PULSE 52; RESP 18; TEMP 36.2; O2SAT 92; BMI 22.8
--- NOTE | 2021-12-15 21:03 | ED_ITS ---
Documented by User: Mark Hester DO 12/15/21 23:27 HPI - Chest Pain General: Chief Complaint: Chest Pain Stated Complaint: CP, Neck pain, back of head Time Seen by Provider: 12/15/21 20:58 Source: patient Mode of arrival: ambulatory Limitations: no limitations History of Present Illness: This patient returns to the emergency department because of increasing cough and congestion. He states that he is mostly been coughing up clear but occasionally some discolored sputum. He denies any known fevers or chills. He states his chest feels congested. He has a history of congestive heart failure and is a ex-smoker. He is also had a history of coronary artery disease and takes Plavix still. His stents have been placed sometime ago. He apparently had a fall approximately 6 days ago and struck his face and chest during this fall. He was evaluated in this emergency department and had laceration repair to his right face as well as CT scans of his head neck which were unremarkable. He states he has been eating and drinking normally not had any blood in his stools or blood in his urine as far as he is aware. Pertinent past history: coronary artery disease and [employer] Associated symptoms: Deny abdominal pain, fever(s), nausea, palpitations, syncope or vomiting Risk Factors: Coronary artery disease risk factors: smoking history Review of Systems Const: Denies: fever(s), chills or body aches Eyes: Denies: change in vision or eye discharge ENMT: Denies: throat pain, odynophagia or nasal congestion Card: Denies: palpitations, irregular heart rhythm, edema, swelling of feet/ankles or syncope Resp: Reports: productive cough, wheezing and chest congestion GI: Denies: abdominal pain, nausea, vomiting, diarrhea, hematochezia or melena : Denies: flank pain, difficulty urinating or dysuria Musc: Denies: neck pain, back pain, extremity pain or extremity swelling Skin/Breast: Denies: rash Neuro: Denies: headache(s), numbness in extremities or weakness in extremities Ronaldo/Lymph: Reports: easy bruising [facility] ED PFSH: Medical History Bilateral carotid artery stenosis BPH (benign prostatic hyperplasia) BPH loc w urin obs/LUTS Coronary artery disease CVA (cerebral vascular accident) GERD (gastroesophageal reflux disease) Hyperlipidemia Hypertension Osteoarthritis Urolithiasis Surgical History H/O lithotripsy History of heart artery stent x8 Family History Father CAD (coronary artery disease) Stroke Mother CAD (coronary artery disease) Other Hyperlipidemia Hypertension Denies family history of Diabetes Clotting disorder Dementia Chronic kidney disease (CKD) Anesthesia complication Bleeding disorder Lung disease Cancer Social History Smoking and tobacco status: never smoked Alcohol intake: never Adopted: No Caregiver/support person: No Lives independently: Yes Marital status: / Current occupational status: retired Physical Exam Narrative: EXAM NARRATIVE: Alert and cooperative. He has ecchymosis over his right lower jaw extending down the platysma's of his right neck to his clavicle. Const: COMMON NORMALS: no acute distress, patient oriented x3 and alert GENERAL APPEARANCE: cooperative HENMT: COMMON NORMALS: normocephalic, Normal external nose present, Normal nasal mucous membranes and turbinates present, moist oral mucous membranes and oropharynx normal HEAD & SCALP: normocephalic, contusion and laceration (Sutured laceration right mandible. Well approximated no drainage or bleedi) NOSE: Normal external nose present and Normal nasal mucous membranes and turbinates present Eye: COMMON NORMALS: Equal, round and reactive pupils present and EOMs intact bilaterally PUPIL: Yes Equal, round and reactive pupils present Neck/C-Spine: COMMON NORMALS: full ROM and supple CERVICAL SPINE: Yes cervical ROM normal, No Cervical spine tenderness and No step off deformity Chest: OTHER: He has areas of ecchymosis in the upper suprasternal area. There is no subcutaneous emphysema. There is no crepitance noted. Some mild tenderness to palpation over the anterior upper ribs. Resp: COMMON NORMALS: normal respiratory effort and No use of accessory muscles AUSCULTATION: rhonchi and wheezes Cardio: COMMON NORMALS: regular rate, regular rhythm, No murmurs present (Cardio) and Peripheral pulses 2+ throughout RATE: regular rate RHYTHM: regular rhythm PERIPHERAL PULSES: Peripheral pulses 2+ throughout GI: COMMON NORMALS: Normal to inspection, nondistended, normoactive bowel sounds present, Soft to palpation, non-tender and no masses PALPATION: Yes Soft to palpation : COMMON NORMALS: Yes no CVA tenderness BLADDER/KIDNEY EXAM: Yes no CVA tenderness Back/Pelvis: COMMON NORMALS: no CVA tenderness, thoracic and lumbar spine normal to inspection, no thoracic nor lumbar tenderness and thoraco-lumbar ROM normal Extremity: COMMON NORMALS: normal to inspection, full ROM, capillary refill normal, no calf tenderness and no pedal edema Neuro: COMMON NORMALS: patient oriented x3, moves all extremities, no focal motor deficits and no sensory deficits noted SENSORIUM/ORIENTATION: Yes alert CRANIAL NERVES: Yes CN normal except as noted SPEECH: speech normal Psych: COMMON NORMALS: mental status grossly normal Skin: COMMON NORMALS: turgor normal NARRATIVE SKIN EXAM: Ecchymosis as noted above on the right lower mandible the right anterior neck down to the clavicle. Also the suprasternal notch. GENERAL SKIN EXAM: turgor normal and ecchymosis WOUNDS: Yes wounds noted Course Reevaluation(s): Reevaluation #1: His troponin is slightly elevated therefore we will have to go ahead and repeat a troponin to ensure there is no increase or other issues suggesting ongoing coronary ischemia. His BUN is significantly elevated suggestive of volume depletion. Repeat chest examination after his DuoNeb reveals he still has significant amount of upper airway rhonchi. No wheezing at this time. No accessory muscle usage. Time: 22:24 Reevaluation #2: This patient is turned over to Dr. Ledesma for disposition based upon repeat troponin and response to therapy. Time: 23:24 Vital Signs: Vital signs: Vital Signs Temperature 97.9 F 12/16/21 02:04 Pulse Rate 64 12/16/21 02:04 Respiratory Rate 18 12/16/21 02:04 Blood Pressure 130/74 12/16/21 02:04 Pulse Oximetry 94 12/16/21 02:04 MDM - Chest Pain Medical Decision Making Patient with subjective complaints of chest congestion but also findings consistent with fluid volume depletion. Initial troponin elevated. we will await serial troponins and response to therapy prior to disposition. Medical Records I reviewed the patient's medical records. Prior labs reveal that his BUN is significantly elevated over past BUN numbers seen in the chart. Lab Data I reviewed the patient's lab results. : 12/15/21 21:48 12/15/21 21:48 Radiology Impressions Chest X-Ray 12/15/21 20:30 IMPRESSION: 1. Negative for infiltrate. 2. Calcified mediastinal and hilar lymph nodes. 3. Several calcified right lung granulomas. Chest CTA 12/16/21 00:52 IMPRESSION: 1. There is no evidence for pulmonary emboli. 2. Mild aneurysmal dilatation of the distal descending thoracic aorta at the hiatus without evidence for dissection or extravasation. There is low-attenuation mural thrombus seen within the aneurysm on the left. And intramural thrombus cannot be excluded. ADDENDUM: 12/16/21 0248 CRITICAL RESULT: THIS REPORT CONTAINS FINDINGS THAT MAY BE CRITICAL TO PATIENT CARE. The findings were verbally communicated via telephone conference with CHRIS Ortez at 2:46 AM T on 12/16/2021. The findings were acknowledged and understood. Laboratory Results WBC 10.6 10^3/uL (4.0-10.0) H 12/15/21 21:48 RBC 4.72 10^6/uL (4.1-5.3) 12/15/21 21:48 Hgb 14.5 g/dL (11.7-16.6) 12/15/21 21:48 Hct 42.0 % (42.0-52.0) 12/15/21 21:48 MCV 89.0 fl (80-94) 12/15/21 21:48 MCH 30.7 pg (28.0-34.0) 12/15/21 21:48 MCHC 34.5 g/dL (30.0-36.0) 12/15/21 21:48 RDW 13.3 % (12.1-15.1) 12/15/21 21:48 Plt Count 206 10^3/cmm (130-400) 12/15/21 21:48 MPV 9.5 fL (7.4-10.4) 12/15/21 21:48 Neut % (Auto) 79.0 % 12/15/21 21:48 Lymph % (Auto) 10.5 % 12/15/21 21:48 [place] % (Auto) 9.4 % 12/15/21 21:48 Eos % (Auto) 0.3 % 12/15/21 21:48 Baso % (Auto) 0.2 % 12/15/21 21:48 Neut # (Auto) 8.36 10^3/uL (1.8-7.7) H 12/15/21 21:48 Lymph # (Auto) 1.1 10^3/uL (0.8-4.8) 12/15/21 21:48 [place] # (Auto) 1.0 10^3/uL (0.2-0.9) H 12/15/21 21:48 Eos # (Auto) 0.0 10^3/uL (0.0-0.8) 12/15/21 21:48 Baso # (Auto) 0.0 10^3/uL (0.0-0.1) 12/15/21 21:48 Nucleated RBC % (auto) 0 % 12/15/21 21:48 Nucleated RBCs # 0.0 /100WBC 12/15/21 21:48 Sodium 133 mmol/L (136-145) L 12/15/21 21:48 Potassium 3.9 mmol/L (3.5-5.1) 12/15/21 21:48 Chloride 98 mmol/L (98-107) 12/15/21 21:48 Carbon Dioxide 23 mmol/L (22-29) 12/15/21 21:48 Anion Gap 15.9 (5-19) 12/15/21 21:48 BUN 64 mg/dL (8-23) H 12/15/21 21:48 Creatinine 1.8 mg/dL (0.7-1.2) H 12/15/21 21:48 GFR Calculation Not Reportable 12/15/21 21:48 Glucose 127 mg/dL (65-115) H 12/15/21 21:48 Calculated Osmolality 296 mOsm/kg (285-295) H 12/15/21 21:48 Calcium 8.7 mg/dL (8.5-10.5) 12/15/21 21:48 Total Bilirubin 0.4 mg/dL (0.15-1.2) 12/15/21 21:48 AST 13 U/L (0-40) 12/15/21 21:48 ALT 10 U/L (0-41) 12/15/21 21:48 Alkaline Phosphatase 78 IU/L (40-130) 12/15/21 21:48 Troponin T Baseline 21 ng/L (0-15) H 12/15/21 21:48 Troponin T 120 Minute 18.66 ng/L (0-15) H 12/16/21 00:09 Delta Troponin T -2.34 ABS# (0-10) L 12/16/21 00:09 NT-Pro-B Natriuret Pep 838 pg/mL (0-450) H 12/16/21 00:09 Total Protein 7.3 g/dL (6.6-8.7) 12/15/21 21:48 Albumin 3.7 g/dL (3.5-5.2) 12/15/21 21:48 Globulin 3.6 g/dL (1.3-4.6) 12/15/21 21:48 EKG Data EKG 1: I personally reviewed and interpreted this EKG as follows: Interpretation: EKG shows a sinus bradycardia rate of 52 bpm. Normal intervals, normal axis. Has low voltage ST T waves but no acute changes noted. Discharge Plan Discharge Patient Disposition: Home Clinical Impression: Volume depletion, Breath shortness, Descending thoracic aortic aneurysm Condition: Stable Prescriptions: New prednisone 50 mg tablet 50 mg PO DAILY Qty: 5 0RF albuterol sulfate 90 mcg/actuation HFA aerosol inhaler 2 inh INHALATION Q6H PRN (Reason: shortness of breath or wheezing) Qty: 8 0RF No Action hydrochlorothiazide 12.5 mg capsule 12.5 mg PO DAILY PRN (Reason: edema) Qty: 90 3RF tamsulosin 0.4 mg capsule See Rx Instructions .ROUTE .COMPLEX Qty: 60 12RF Dose Instruction: TAKE 1 CAPSULE BY MOUTH TWO TIMES A DAY Rx Instructions: TAKE 1 CAPSULE BY MOUTH TWO TIMES A DAY carvedilol 25 mg tablet See Rx Instructions .ROUTE .COMPLEX Qty: 180 3RF Dose Instruction: TAKE 1 TABLET BY MOUTH TWO TIMES A DAY Rx Instructions: TAKE 1 TABLET BY MOUTH TWO TIMES A DAY losartan 50 mg tablet See Rx Instructions .ROUTE .COMPLEX Qty: 90 3RF Dose Instruction: TAKE ONE TABLET BY MOUTH EVERY DAY Rx Instructions: TAKE ONE TABLET BY MOUTH EVERY DAY clopidogrel 75 mg tablet 75 mg PO DAILY@0700 0RF levothyroxine 50 mcg tablet 50 mcg PO DAILY@0700 0RF pantoprazole 40 mg tablet,delayed release (DR/EC) 40 mg PO DAILY@0700 0RF nitroglycerin [Nitrostat] 0.4 mg Tablet, Sublingual 0.4 mg SUBLINGUAL Q5M PRN (Reason: Chest Pain) 0RF levocetirizine 5 mg tablet 5 mg PO DAILY PRN (Reason: UNKNOWN) 0RF red yeast rice 600 mg Tablet 600 mg PO DAILY@0700 0RF CoQ-10 1 tab PO DAILY@0700 0RF Fish Oil 1 cap PO DAILY@0700 0RF cephalexin 500 mg tablet 500 mg PO Q8H 7 Days Qty: 21 0RF bacitracin 500 unit/gram ointment 1 applic topical BID Qty: 28 0RF Discharge Orders: Discharge ED (Routine); Ordered 12/16/21 Ordered By: Chris Ledesma Referrals: Marcus Machado MD [Physician] - 1-3 days Tam Farah DO [Primary Care Provider] - 1-3 days Discharge Diet: Advance as tolerated Discharge Activity: Resume usual activity Patient Instructions: Shortness of Breath (ED) Coding Level of Care Code ED Flash Drier Operator for Chg Fwd Exam Comprehensive Documented by User: Chris Ledesma MD 12/16/21 03:21 HPI - Chest Pain General: Chief Complaint: Chest Pain Stated Complaint: CP, Neck pain, back of head Time Seen by Provider: 12/15/21 20:58 PFSH ED PFSH: Medical History Bilateral carotid artery stenosis BPH (benign prostatic hyperplasia) BPH loc w urin obs/LUTS Coronary artery disease CVA (cerebral vascular accident) GERD (gastroesophageal reflux disease) Hyperlipidemia Hypertension Osteoarthritis Urolithiasis Surgical History H/O lithotripsy History of heart artery stent x8 Family History Father CAD (coronary artery disease) Stroke Mother CAD (coronary artery disease) Other Hyperlipidemia Hypertension Denies family history of Diabetes Clotting disorder Dementia Chronic kidney disease (CKD) Anesthesia complication Bleeding disorder Lung disease Cancer Social History Smoking and tobacco status: never smoked Alcohol intake: never Adopted: No Caregiver/support person: No Lives independently: Yes Marital status: / Current occupational status: retired Course Vital Signs: Vital signs: Vital Signs Temperature 97.9 F 12/16/21 02:04 Pulse Rate 64 12/16/21 02:04 Respiratory Rate 18 12/16/21 02:04 Blood Pressure 130/74 12/16/21 02:04 Pulse Oximetry 94 12/16/21 02:04 MDM - Chest Pain Medical Decision Making Patient with subjective complaints of chest congestion but also findings consistent with fluid volume depletion. Initial troponin elevated. we will await serial troponins and response to therapy prior to disposition. Patient states he feels much improved here. Did CT his chest and she had had his fall he did have a dissection I spoke to CT surgery at [facility] they just recommended follow-up his pain is minimal currently. Went and spoke to him and offered him admission for his volume depletion and his dyspnea he states he feels improved and he would like to go home he refuses to stay. Feel he is stable for discharge at this point we will get him follow-up with CT surgery he is return if worsening he understands agrees to plan. Lab Data : 12/15/21 21:48 12/15/21 21:48 Radiology Impressions Chest X-Ray 12/15/21 20:30 IMPRESSION: 1. Negative for infiltrate. 2. Calcified mediastinal and hilar lymph nodes. 3. Several calcified right lung granulomas. Chest CTA 12/16/21 00:52 IMPRESSION: 1. There is no evidence for pulmonary emboli. 2. Mild aneurysmal dilatation of the distal descending thoracic aorta at the hiatus without evidence for dissection or extravasation. There is low-attenuation mural thrombus seen within the aneurysm on the left. And intramural thrombus cannot be excluded. ADDENDUM: 12/16/21 0248 CRITICAL RESULT: THIS REPORT CONTAINS FINDINGS THAT MAY BE CRITICAL TO PATIENT CARE. The findings were verbally communicated via telephone conference with CHRIS Ortez at 2:46 AM CDT on 12/16/2021. The findings were acknowledged and understood. Laboratory Results WBC 10.6 10^3/uL (4.0-10.0) H 12/15/21 21:48 RBC 4.72 10^6/uL (4.1-5.3) 12/15/21 21:48 Hgb 14.5 g/dL (11.7-16.6) 12/15/21 21:48 Hct 42.0 % (42.0-52.0) 12/15/21 21:48 MCV 89.0 fl (80-94) 12/15/21 21:48 MCH 30.7 pg (28.0-34.0) 12/15/21 21:48 MCHC 34.5 g/dL (30.0-36.0) 12/15/21 21:48 RDW 13.3 % (12.1-15.1) 12/15/21 21:48 Plt Count 206 10^3/cmm (130-400) 12/15/21 21:48 MPV 9.5 fL (7.4-10.4) 12/15/21 21:48 Neut % (Auto) 79.0 % 12/15/21 21:48 Lymph % (Auto) 10.5 % 12/15/21 21:48 [place] % (Auto) 9.4 % 12/15/21 21:48 Eos % (Auto) 0.3 % 12/15/21 21:48 Baso % (Auto) 0.2 % 12/15/21 21:48 Neut # (Auto) 8.36 10^3/uL (1.8-7.7) H 12/15/21 21:48 Lymph # (Auto) 1.1 10^3/uL (0.8-4.8) 12/15/21 21:48 [place] # (Auto) 1.0 10^3/uL (0.2-0.9) H 12/15/21 21:48 Eos # (Auto) 0.0 10^3/uL (0.0-0.8) 12/15/21 21:48 Baso # (Auto) 0.0 10^3/uL (0.0-0.1) 12/15/21 21:48 Nucleated RBC % (auto) 0 % 12/15/21 21:48 Nucleated RBCs # 0.0 /100WBC 12/15/21 21:48 Sodium 133 mmol/L (136-145) L 12/15/21 21:48 Potassium 3.9 mmol/L (3.5-5.1) 12/15/21 21:48 Chloride 98 mmol/L (98-107) 12/15/21 21:48 Carbon Dioxide 23 mmol/L (22-29) 12/15/21 21:48 Anion Gap 15.9 (5-19) 12/15/21 21:48 BUN 64 mg/dL (8-23) H 12/15/21 21:48 Creatinine 1.8 mg/dL (0.7-1.2) H 12/15/21 21:48 GFR Calculation Not Reportable 12/15/21 21:48 Glucose 127 mg/dL (65-115) H 12/15/21 21:48 Calculated Osmolality 296 mOsm/kg (285-295) H 12/15/21 21:48 Calcium 8.7 mg/dL (8.5-10.5) 12/15/21 21:48 Total Bilirubin 0.4 mg/dL (0.15-1.2) 12/15/21 21:48 AST 13 U/L (0-40) 12/15/21 21:48 ALT 10 U/L (0-41) 12/15/21 21:48 Alkaline Phosphatase 78 IU/L (40-130) 12/15/21 21:48 Troponin T Baseline 21 ng/L (0-15) H 12/15/21 21:48 Troponin T 120 Minute 18.66 ng/L (0-15) H 12/16/21 00:09 Delta Troponin T -2.34 ABS# (0-10) L 12/16/21 00:09 NT-Pro-B Natriuret Pep 838 pg/mL (0-450) H 12/16/21 00:09 Total Protein 7.3 g/dL (6.6-8.7) 12/15/21 21:48 Albumin 3.7 g/dL (3.5-5.2) 12/15/21 21:48 Globulin 3.6 g/dL (1.3-4.6) 12/15/21 21:48 Discharge Plan Discharge Patient Disposition: Home Clinical Impression: Volume depletion, Breath shortness, Descending thoracic aortic aneurysm Condition: Stable Prescriptions: New prednisone 50 mg tablet 50 mg PO DAILY Qty: 5 0RF albuterol sulfate 90 mcg/actuation HFA aerosol inhaler 2 inh INHALATION Q6H PRN (Reason: shortness of breath or wheezing) Qty: 8 0RF No Action hydrochlorothiazide 12.5 mg capsule 12.5 mg PO DAILY PRN (Reason: edema) Qty: 90 3RF tamsulosin 0.4 mg capsule See Rx Instructions .ROUTE .COMPLEX Qty: 60 12RF Dose Instruction: TAKE 1 CAPSULE BY MOUTH TWO TIMES A DAY Rx Instructions: TAKE 1 CAPSULE BY MOUTH TWO TIMES A DAY carvedilol 25 mg tablet See Rx Instructions .ROUTE .COMPLEX Qty: 180 3RF Dose Instruction: TAKE 1 TABLET BY MOUTH TWO TIMES A DAY Rx Instructions: TAKE 1 TABLET BY MOUTH TWO TIMES A DAY losartan 50 mg tablet See Rx Instructions .ROUTE .COMPLEX Qty: 90 3RF Dose Instruction: TAKE ONE TABLET BY MOUTH EVERY DAY Rx Instructions: TAKE ONE TABLET BY MOUTH EVERY DAY clopidogrel 75 mg tablet 75 mg PO DAILY@0700 0RF levothyroxine 50 mcg tablet 50 mcg PO DAILY@0700 0RF pantoprazole 40 mg tablet,delayed release (DR/EC) 40 mg PO DAILY@0700 0RF nitroglycerin [Nitrostat] 0.4 mg Tablet, Sublingual 0.4 mg SUBLINGUAL Q5M PRN (Reason: Chest Pain) 0RF levocetirizine 5 mg tablet 5 mg PO DAILY PRN (Reason: UNKNOWN) 0RF red yeast rice 600 mg Tablet 600 mg PO DAILY@0700 0RF CoQ-10 1 tab PO DAILY@0700 0RF Fish Oil 1 cap PO DAILY@0700 0RF cephalexin 500 mg tablet 500 mg PO Q8H 7 Days Qty: 21 0RF bacitracin 500 unit/gram ointment 1 applic topical BID Qty: 28 0RF Discharge Orders: Discharge ED (Routine); Ordered 12/16/21 Ordered By: Chris Ledesma Referrals: Marcus Machado MD [Physician] - 1-3 days Tam Farah DO [Primary Care Provider] - 1-3 days Discharge Diet: Advance as tolerated Discharge Activity: Resume usual activity Patient Instructions: Shortness of Breath (ED) Coding Level of Care Code ED Flash Drier Operator for Chg Fwd Exam Comprehensive
[2021-12-15] MEDS: ipratropium-albuterol 3 mL Neb INHALATION (21:17)
[2021-12-15 21:19] VITALS: PULSE 51; RESP 16; O2SAT 96
[2021-12-15 21:22] VITALS: PULSE 57
[2021-12-15 21:50] VITALS: BP 127/75; PULSE 61; RESP 16; TEMP 36.2; O2SAT 96
[2021-12-15 21:52] LABS: Basophils % 0.2 %; Eosinophils % 0.3 %; Hemoglobin 14.5 g/dL (11.7-16.6); Lymphocytes # 1.1 10^3/uL (0.8-4.8); Lymphocytes % 10.5 %; Mean Corpuscular HGB Conc 34.5 g/dL (30.0-36.0); Mean Corpuscular Hemoglobin 30.7 pg (28.0-34.0); Mean Platelet Volume 9.5 fL (7.4-10.4); Monocytes % 9.4 %; Neutrophils # 8.36 10^3/uL (1.8-7.7); Nucleated Red Blood Cells % 0 %; Platelet Count 206 10^3/cmm (130-400); Red Blood Count 4.72 10^6/uL (4.1-5.3); Red Cell Distribution Width 13.3 % (12.1-15.1); White Blood Count 10.6 10^3/uL (4.0-10.0)
[2021-12-15 22:11] LABS: Alanine Aminotransferase 10 U/L (0-41); Albumin Level 3.7 g/dL (3.5-5.2); Alkaline Phosphatase 78 IU/L (40-130); Anion Gap 15.9 (5-19); Aspartate Amino Transferase 13 U/L (0-40); Blood Urea Nitrogen 64 mg/dL (8-23); Calcium 8.7 mg/dL (8.5-10.5); Carbon Dioxide 23 mmol/L (22-29); Chloride 98 mmol/L (98-107); Globulin 3.6 g/dL (1.3-4.6); Glucose 127 mg/dL (65-115); Osmolality Calculated 296 mOsm/kg (285-295); Potassium 3.9 mmol/L (3.5-5.1); Sodium 133 mmol/L (136-145); Total Bilirubin 0.4 mg/dL (0.15-1.2); Total Protein 7.3 g/dL (6.6-8.7)
[2021-12-15 22:12] LABS: Troponin(5th) Baseline 21 ng/L (0-15)
[2021-12-15] MEDS: sodium chloride 0.9% 1,000 ML 999 ML IV (23:07)
[2021-12-16 00:22] VITALS: PULSE 58; RESP 18; O2SAT 93
[2021-12-16] MEDS: levalbuterol 0.63 mg/3 mL Neb INHALATION (00:22)
[2021-12-16 00:29] LABS: Troponin 5 2HR 18.66 ng/L (0-15)
[2021-12-16 00:30] LABS: Troponin 5 2HR Delta -2.34 ABS# (0-10)
--- NOTE | 2021-12-16 00:52 | CTR_ITS ---
PROCEDURE INFORMATION: Exam: CTA Chest With Contrast Exam date and time: 12/16/2021 1:54 AM Age: 86 years old Clinical indication: Dyspnea; Prior surgery; Surgery date: 6+ months; Surgery type: Stents; Additional info: SOB TECHNIQUE: Imaging protocol: Computed tomographic angiography of the chest with contrast. 3D rendering (Not supervised by radiologist): MIP and/or 3D reconstructed images were created by the technologist. Radiation optimization: All CT scans at this facility use at least one of these dose optimization techniques: automated exposure control; mA and/or kV adjustment per patient size (includes targeted exams where dose is matched to clinical indication); or iterative reconstruction. Contrast material: VISI; Contrast volume: 95 ml; Contrast route: INTRAVENOUS (IV); COMPARISON: CTA Chest w Abd/Pel w* 11/19/2016 8:49 PM RADIATION DOSE METRICS: Total DLP (mGy-cm): 621.68 FINDINGS: Pulmonary arteries: Normal. No pulmonary emboli. Aorta: Calcifications are seen within the thoracic and abdominal aorta. There is mild aneurysmal dilatation of the distal descending thoracic aorta at the hiatus measuring approximately 3 cm AP dimension. There is no definite evidence for dissection or extravasation. There is mural thrombus seen along the aneurysmal dilatation on the left. An intramural thrombus cannot be excluded. Lungs: Hazy opacities are seen in the lung bases bilaterally likely representing atelectasis. Pleural spaces: Unremarkable. No pneumothorax. No pleural effusion. Heart: Unremarkable. No cardiomegaly. No pericardial effusion. Lymph nodes: Partially calcified mediastinal and hilar lymph nodes are seen. Spleen: Multiple calcifications are seen within the spleen compatible with calcified granulomas. Bones/joints: Unremarkable. No acute fracture. Soft tissues: Unremarkable. Other findings: There are calcified granulomas seen within the hemithoraces bilaterally. CT/CT angio chest PE protcl [id number] IMPRESSION: 1. There is no evidence for pulmonary emboli. 2. Mild aneurysmal dilatation of the distal descending thoracic aorta at the hiatus without evidence for dissection or extravasation. There is low-attenuation mural thrombus seen within the aneurysm on the left. And intramural thrombus cannot be excluded.
[2021-12-16] MEDS: iodixanol 320 mg/mL 100mL Btl IV (01:58)
[2021-12-16 02:04] VITALS: BP 130/74; PULSE 64; RESP 18; TEMP 36.6; O2SAT 94
[2021-12-16 02:06] LABS: NT Pro B Type Natriuretic Pept 838 pg/mL (0-450)
[2021-12-16] MEDS: albuterol 8 gm MDI 2 PUFF INHALATION (03:20)
[2021-12-16 03:23] VITALS: PULSE 61; RESP 18; O2SAT 92
[2021-12-16 03:49] LABS: Adenovirus Not Detected (NOT DETECT); Chlamydia Pneumoniae Not Detected (NOT DETECT); Coronavirus 229E,HKU1,NL63,OC4 Not Detected (NOT DETECT); Human Metapneumovirus Detected (NOT DETECT); Human Rhinovirus/Enterovirus Not Detected (NOT DETECT); Influenza A Not Detected (NOT DETECT); Influenza A H1 Not Detected (NOT DETECT); Influenza A H1-2009 Not Detected (NOT DETECT); Influenza A H3 Not Detected (NOT DETECT); Influenza B Not Detected (NOT DETECT); Mycoplasma Pneumoniae Not Detected (NOT DETECT); Parainfluenza Virus Type 1 Not Detected (NOT DETECT); Parainfluenza Virus Type 2 Not Detected (NOT DETECT); Parainfluenza Virus Type 3 Not Detected (NOT DETECT); Parainfluenza Virus Type 4 Not Detected (NOT DETECT); Respiratory Syncytial Virus A Not Detected (NOT DETECT); Respiratory Syncytial Virus B Not Detected (NOT DETECT); SARS-COV-2 Not Detected (NOT DETECT)
[2021-12-16 03:50] LABS: Human Metapneumovirus Detected (NOT DETECT); Human Rhinovirus/Enterovirus Not Detected (NOT DETECT); Results from Genmark
[2021-12-16 04:23] VITALS: BP 132/74; PULSE 61; RESP 18; O2SAT 92
--- NOTE | 2021-12-17 11:52 | DCPLANNER ---
Addendum entered by Esha Fallon 02/26/22 12:34: Patient had a follow up appointment scheduled with heart care - patient did attend appointment Addendum entered by Esha Fallon 12/22/21 04:20: Patient has a follow up appointment scheduled for , January 09, 2022 at 1:[address] at [facility]. Clinic will call patient with appointment information. Original Note: manager industrial had message to schedule a follow up appointment for patient with cardiology. manager industrial sent patients information to the front office staff at [facility]. Patients information will be printed and reviewed. Clinic will call patient with appointment information.
== END 2021-12-16 04:15 | disposition home or self-care (01) ==
PROVIDERS: Emergency Provider Emergency Medicine; PCP Internal Medicine
DX: I71.2 Thoracic aortic aneurysm, without rupture (principal); E86.9 Volume depletion, unspecified; R06.02 Shortness of breath; I10 Essential (primary) hypertension; E78.5 Hyperlipidemia, unspecified; Z86.73 Personal history of transient ischemic attack (TIA), and cerebral infarction without residual deficits; I25.10 Atherosclerotic heart disease of native coronary artery without angina pectoris
CPT/HCPCS: 71045; 71275; 80053; 83880; 84484; 85025; 87635; 87801; 93005; 94640; 96361; 96374; 99285; J2930; J3535; J7030; J7614; Q9967

== ENCOUNTER 2021-12-23 11:08 | Inpatient (IN) | payer MEDICARE, OTHER, SELFPAY ==
[2021-12-23] VITALS (27 sets, daily range): BP systolic 101–149; BP diastolic 52–65; PULSE 39–60; RESP 16–30; TEMP 36.2–36.6; O2SAT 93–97; BMI 22.8
--- NOTE | 2021-12-23 11:35 | ECG_ITS ---
[facility] Test Date: 2021-12-23 Pat Name: Des Fuller Department: Room: Gender: Male Document Analyst: : 1935 Requested By: Everardo Walden Order Number: [id number] Mar MD: Suzanne Montoya M.D. Measurements Intervals [place] Rate: 57 P: 63 FL: 163 QRS: 71 QRSD: 93 T: 76 QT: 434 QTc: 423 Interpretive Statements SINUS BRADYCARDIA NONSPECIFIC T-WAVE ABNORMALITY Compared to ECG 12/15/2021 20:40:23 No significant changes Electronically Signed On 12-23-2021 21:21:55 CDT by Suzanne Montoya M.D. [id number]
--- NOTE | 2021-12-23 11:35 | CT_ITS ---
WS: [id number] CT HEAD TECHNIQUE: Noncontrast CT of the head obtained from the skullbase to the vertex. CLINICAL INFORMATION: WEakness, confusion, syncope COMPARISON: CT December 09, 2021 DLP: 735.[address] scans at [facility] use at least one of these dose optimization techniques: automated e xposure control; mA and/or kV adjustment per patient size (includes targeted exams where dose is matc hed to clinical indication); or iterative reconstruction. FINDINGS: No evidence of intracranial hemorrhage or mass effect. Ventricular system and basal cisterns are pool nt. Moderate small vessel changes with moderate parenchymal volume loss. Chronic lacunar infarct RIGH T caudate and RIGHT moore radiata. No extra-axial fluid collections. No evidence of mass or mass eff ect. Intracranial vascular calcification. No mucosal thickening ethmoid air cells. Mastoid air cells are well aerated. Normal posterior nasopha rynx. CT/CT head wo con* [id number] IMPRESSION: 1. No evidence of intracranial hemorrhage or mass effect. 2. Moderate small vessel changes. Moderate parenchymal volume loss. 3. Tiny chronic lacunar infarct RIGHT caudate and RIGHT moore radiata. 4. Intracranial vascular calcification. 5. No significant changes since December 09, 2021.
[2021-12-23 11:57] LABS: Basophils % 0.3 %; Eosinophils # 0.1 10^3/uL (0.0-0.8); Eosinophils % 0.7 %; Hematocrit 38.9 % (42.0-52.0); Hemoglobin 13.1 g/dL (11.7-16.6); Lymphocytes # 0.5 10^3/uL (0.8-4.8); Lymphocytes % 4.4 %; Mean Corpuscular HGB Conc 33.7 g/dL (30.0-36.0); Mean Corpuscular Hemoglobin 30.7 pg (28.0-34.0); Mean Corpuscular Volume 91.1 fl (80-94); Mean Platelet Volume 9.4 fL (7.4-10.4); Monocytes # 0.6 10^3/uL (0.2-0.9); Monocytes % 5.3 %; Neutrophils # 10.24 10^3/uL (1.8-7.7); Neutrophils % 88.5 %; Nucleated Red Blood Cells % 0 %; Platelet Count 250 10^3/cmm (130-400); Red Blood Count 4.27 10^6/uL (4.1-5.3); Red Cell Distribution Width 13.8 % (12.1-15.1); White Blood Count 11.6 10^3/uL (4.0-10.0)
[2021-12-23 12:02] LABS: Alanine Aminotransferase 26 U/L (0-41); Albumin Level 3.1 g/dL (3.5-5.2); Alkaline Phosphatase 118 IU/L (40-130); Anion Gap 16.8 (5-19); Aspartate Amino Transferase 33 U/L (0-40); Blood Urea Nitrogen 43 mg/dL (8-23); Calcium 8.5 mg/dL (8.5-10.5); Carbon Dioxide 22 mmol/L (22-29); Chloride 98 mmol/L (98-107); Globulin 4.6 g/dL (1.3-4.6); Glucose 224 mg/dL (65-115); Osmolality Calculated 294 mOsm/kg (285-295); Potassium 3.8 mmol/L (3.5-5.1); Sodium 133 mmol/L (136-145); Total Bilirubin 0.6 mg/dL (0.15-1.2); Total Protein 7.7 g/dL (6.6-8.7)
--- NOTE | 2021-12-23 12:53 | PC.PHAR ---
pt states he takes care of his own medication-pt states he is still taking metformin er 500mg bid james cutter states last filled 09/25/21 30d/s- wrote rx for prednisone 50mg daily on 12/16/21 pt states he didnt fill rx-pt had rx filled on 12/09/21 5d/s for prednisone 40mg daily for 5 days pt states finished -notes are made in the pharmacy comments
[2021-12-23] MEDS: sodium chloride 0.9% 1,000 ML 999 ML IV (13:02)
--- NOTE | 2021-12-23 13:43 | ED_ITS ---
HPI - Syncope General: Chief Complaint: Syncope Stated Complaint: weakness/lethargic/confusion/dizziness Time Seen by Provider: 12/23/21 11:34 Source: patient Mode of arrival: wheelchair Limitations: no limitations History of Present Illness: 86-year-old male presents emergency room with weakness lethargy confusion and dizziness. He had a episode of lightheadedness dizziness after he stood up where he nearly passed out. On arrival here he is bradycardic and somewhat hypotensive. He had a similar episode a week ago he still has significant amount of face and neck bruising from other episode. He denies any chest pain. He is on clopidogrel in addition to that he is on carvedilol hydrochlorothiazide and losartan. Patient has a history of diabetes and is on metformin. He generally seems to be feeling well at this time denies any specific complaints other than nearly passing out. MD complaint: almost passed out Onset (ago): minute(s) Prodromal symptoms: lightheaded Witnessed: Yes - by Bystander Context: standing up Injuries sustained associated with event: none and other (Previous fall resulted in facial laceration as well as significant bruising) Associated symptoms: Deny abdominal pain, chest pain, fever(s), headache(s), lightheadedness, nausea, short of breath, vertigo or weakness History: previous syncopal episode Treatments prior to arrival: none Review of Systems Const: Denies: fever(s), chills, fatigue or malaise ENMT: Denies: throat pain, ear or mastoid pain, nasal discharge or nasal congestion Card: Reports: pre-syncope; Denies: chest pain, palpitations or lightheadedness Resp: Reports: non-productive cough; Denies: dyspnea or productive cough GI: Denies: abdominal pain or nausea : Denies: flank pain, difficulty urinating, dysuria, urinary frequency or urinary urgency Skin/Breast: Denies: rash or pruritus Neuro: Denies: headache(s) or vertigo PFSH ED PFSH: Medical History Bilateral carotid artery stenosis BPH (benign prostatic hyperplasia) BPH loc w urin obs/LUTS Coronary artery disease CVA (cerebral vascular accident) GERD (gastroesophageal reflux disease) Hyperlipidemia Hypertension Osteoarthritis Urolithiasis Surgical History H/O lithotripsy History of heart artery stent x8 Family History Father CAD (coronary artery disease) Stroke Mother CAD (coronary artery disease) Other Hyperlipidemia Hypertension Denies family history of Diabetes Clotting disorder Dementia Chronic kidney disease (CKD) Anesthesia complication Bleeding disorder Lung disease Cancer Social History Smoking and tobacco status: never smoked Alcohol intake: never Adopted: No Caregiver/support person: No Lives independently: Yes Marital status: / Current occupational status: retired Physical Exam Const: COMMON NORMALS: no acute distress GENERAL APPEARANCE: cooperative and comfortable ORIENTATION/CONSCIOUSNESS: Yes awake, Yes oriented to person, Yes oriented to place and Yes oriented to time HENMT: COMMON NORMALS: normocephalic, atraumatic and hearing grossly normal bilaterally HEAD & SCALP: normocephalic and atraumatic Neck/C-Spine: COMMON NORMALS: no JVD Resp: COMMON NORMALS: normal respiratory effort, No retractions, No use of accessory muscles and clear to auscultation bilaterally AUSCULTATION: clear to auscultation bilaterally Cardio: COMMON NORMALS: no JVD, regular rate, regular rhythm and No murmurs present (Cardio) RATE: regular rate RHYTHM: regular rhythm GI: COMMON NORMALS: Soft to palpation and No hepatosplenomegaly present AUSCULTATION: Yes normoactive bowel sounds PALPATION: Yes Soft to palpation, No Tenderness to palpation present (GI), No Guarding due to palpation present (GI) and Yes No hepatosplenomegaly present Extremity: COMMON NORMALS: normal to inspection, capillary refill normal, no clubbing, cyanosis or edema, no calf tenderness and no pedal edema Neuro: SENSORIUM/ORIENTATION: Yes oriented to person, Yes oriented to place and Yes oriented to time Skin: COMMON NORMALS: no rashes or lesions noted GENERAL SKIN EXAM: no rashes or lesions noted Course Vital Signs: Vital signs: Vital Signs Temperature 97.2 F L 12/23/21 11:20 Pulse Rate 57 L 12/23/21 11:20 Respiratory Rate 20 H 12/23/21 11:20 Blood Pressure 101/52 12/23/21 11:20 Pulse Oximetry 93 12/23/21 11:20 MDM - Syncope Medical Decision Making Patient has had 2 syncopal episodes. He is significantly bradycardic when he arrives here and he became hypotensive at 1 point. I think a lot of this is secondary to medications his carvedilol and hydrochlorothiazide one of the falls was fairly significant and he still has pretty much large amount of ecchymosis from he has not had an echo in some time and he does have a history of carotid stenosis he has no focal neurologic deficit at this time we recommended the patient be observed to have medication adjustments and further evaluation for syncope to rule out other causes. Discussed Dr. Hilton orders written will observe in ICU. When I went back to discuss to the patient that he is being admitted he had a moderate cough. He states he has had this while he had not discussed that with me earlier chest x-ray was done question of infiltrate. Discussed with Dr. Alas as well further work-up is pending we have ordered further labs and starting him on antibiotic. Medical Records I reviewed the patient's medical records. Lab Data I reviewed the patient's lab results. : 12/23/21 11:30 12/23/21 11:[address] 12/23/21 11:35 IMPRESSION: 1. No evidence of intracranial hemorrhage or mass effect. 2. Moderate small vessel changes. Moderate parenchymal volume loss. 3. Tiny chronic lacunar infarct RIGHT caudate and RIGHT moore radiata. 4. Intracranial vascular calcification. 5. No significant changes since December 09, 2021. Chest X-Ray 12/23/21 14:34 IMPRESSION: 1. Findings suspicious for infiltrate in the right lower lobe. A detailed PA and lateral chest would be helpful for more detailed evaluation if thought to be clinically warranted. Laboratory Results WBC 11.6 10^3/uL (4.0-10.0) H 12/23/21 11:30 RBC 4.27 10^6/uL (4.1-5.3) 12/23/21 11:30 Hgb 13.1 g/dL (11.7-16.6) 12/23/21 11:30 Hct 38.9 % (42.0-52.0) L 12/23/21 11:30 MCV 91.1 fl (80-94) 12/23/21 11:30 MCH 30.7 pg (28.0-34.0) 12/23/21 11:30 MCHC 33.7 g/dL (30.0-36.0) 12/23/21 11:30 RDW 13.8 % (12.1-15.1) 12/23/21 11:30 Plt Count 250 10^3/cmm (130-400) 12/23/21 11:30 MPV 9.4 fL (7.4-10.4) 12/23/21 11:30 Neut % (Auto) 88.5 % 12/23/21 11:30 Lymph % (Auto) 4.4 % 12/23/21 11:30 [place] % (Auto) 5.3 % 12/23/21 11:30 Eos % (Auto) 0.7 % 12/23/21 11:30 Baso % (Auto) 0.3 % 12/23/21 11:30 Neut # (Auto) 10.24 10^3/uL (1.8-7.7) H 12/23/21 11:30 Lymph # (Auto) 0.5 10^3/uL (0.8-4.8) L 12/23/21 11:30 [place] # (Auto) 0.6 10^3/uL (0.2-0.9) 12/23/21 11:30 Eos # (Auto) 0.1 10^3/uL (0.0-0.8) 12/23/21 11:30 Baso # (Auto) 0.0 10^3/uL (0.0-0.1) 12/23/21 11:30 Nucleated RBC % (auto) 0 % 12/23/21 11:30 Nucleated RBCs # 0.0 /100WBC 12/23/21 11:30 Sodium 133 mmol/L (136-145) L 12/23/21 11:30 Potassium 3.8 mmol/L (3.5-5.1) 12/23/21 11:30 Chloride 98 mmol/L (98-107) 12/23/21 11:30 Carbon Dioxide 22 mmol/L (22-29) 12/23/21 11:30 Anion Gap 16.8 (5-19) 12/23/21 11:30 BUN 43 mg/dL (8-23) H 12/23/21 11:30 Creatinine 2.1 mg/dL (0.7-1.2) H 12/23/21 11:30 GFR Calculation Not Reportable 12/23/21 11:30 Glucose 224 mg/dL (65-115) H 12/23/21 11:30 Calculated Osmolality 294 mOsm/kg (285-295) 12/23/21 11:30 Calcium 8.5 mg/dL (8.5-10.5) 12/23/21 11:30 Total Bilirubin 0.6 mg/dL (0.15-1.2) 12/23/21 11:30 AST 33 U/L (0-40) 12/23/21 11:30 ALT 26 U/L (0-41) 12/23/21 11:30 Alkaline Phosphatase 118 IU/L (40-130) 12/23/21 11:30 Total Protein 7.7 g/dL (6.6-8.7) 12/23/21 11:30 Albumin 3.1 g/dL (3.5-5.2) L 12/23/21 11:30 Globulin 4.6 g/dL (1.3-4.6) 12/23/21 11:30 Discharge Plan Discharge Patient Disposition: Placed in Observation Clinical Impression: Syncope, Bilateral carotid artery stenosis, Bradycardia, Pneumonia Coding Level of Care Code ED High Density [employer] Coater Operator for Chg Fwd Exam Comprehensive
--- NOTE | 2021-12-23 14:34 | XR_ITS ---
WS: [id number] Exam: XR chest 1V portable [id number] Date/Time of Exam: 12/23/2021 2:38 PM Reason For Exam: cough Comparison 12/15/2021. There is probable infiltrate in the posterior basal segment of the right lower lobe. Left lung is alex ar. No pleural effusions or pneumothorax. Normal cardiomediastinal silhouette. Calcified granulomas i n several calcified mediastinal lymph nodes. Signs of coronary artery stenting. XR/XR chest 1V portable [id number] IMPRESSION: 1. Findings suspicious for infiltrate in the right lower lobe. A detailed PA an d lateral chest would be helpful for more detailed evaluation if thought to be clinically warranted.
[2021-12-23] MEDS: sodium chloride 0.9% 1,000 ML 100 ML IV (14:44)
--- NOTE | 2021-12-23 14:46 | P.HP_ITS ---
Providers/Chief Complaint Primary Care Provider: Tam Farah DO Chief Complaint: weakness/lethargic/confusion/dizziness History of Present Illness Des Fuller is a 86 year old male with past medical history of bilateral carotid artery stenosis, hypertension, CAD status post PCI, in-stent restenosis with repeat PCI, hyperlipidemia, history of CVA who presented to the hospital today for complaint of falling. He also had a laceration on his chin and has significant bruising there. He does have chronic bradycardia and reported 2 syncopal episodes at home. He complains of weakness lethargy confusion dizziness. He says he was lightheaded as well. He just was not sure what is going on. Denies shortness of breath, chest pain, cough. Due to his falls he has had laceration on his chin as well. ER course: Blood pressure 101/52, respiratory 20, pulse 57, temperature 97.2, pulse ox 93%. ER suspected his syncope could be mainly due to his carvedilol and hydrochlorothiazide and he will need medication adjustments. However further causes of syncope cannot be ruled out at this time. Due to patient's heart rate being in the 40s I requested for an ICU bed for this patient for observation. Medications/Allergies Home Medications Medication Instructions Recorded Confirmed Last Taken Type clopidogrel 75 mg tablet 75 mg PO BEDTIME 09/13/19 12/23/21 11/30/20 History levocetirizine 5 mg tablet 5 mg PO DAILY PRN 09/13/19 12/23/21 11/30/20 History levothyroxine 50 mcg tablet 50 mcg PO QAM 09/13/19 12/23/21 12/23/21 History pantoprazole 40 mg tablet,delayed 40 mg PO DAILY 09/13/19 12/23/21 11/30/20 History release red yeast rice 600 mg tablet 600 mg PO DAILY 09/13/19 12/23/21 11/30/20 History Fish Oil 1 cap PO DAILY 11/26/20 12/23/21 11/30/20 History prednisone 50 mg tablet 50 mg PO DAILY #5 tab 12/16/21 12/23/21 Unknown Rx acetaminophen 500 mg tablet 1,000 mg PO Q4H PRN 12/23/21 12/23/21 Unknown History albuterol sulfate 90 mcg/actuation 2 puff INHALATION Q6H PRN 12/23/21 12/23/21 Unknown History aerosol inhaler carvedilol 25 mg tablet 25 mg PO BID 12/23/21 12/23/21 12/23/21 09:00 History cephalexin 500 mg capsule 500 mg PO Q8H 12/23/21 12/23/21 12/20/21 History coenzyme Q10 100 mg capsule 100 mg PO DAILY 12/23/21 12/23/21 Unknown History (CoQ-10) hydrochlorothiazide 12.5 mg capsule 12.5 mg PO QAM 12/23/21 12/23/21 12/23/21 History losartan 50 mg tablet 50 mg PO DAILY 12/23/21 12/23/21 Unknown History metformin 500 mg tablet,extended 500 mg PO BID 12/23/21 12/23/21 Unknown History release 24 hr naproxen 250 mg tablet 250 - 500 mg PO Q12H PRN 12/23/21 12/23/21 Unknown History nitroglycerin 0.4 mg sublingual 0.4 mg SUBLINGUAL Q5M PRN 12/23/21 12/23/21 Unknown History tablet (Nitrostat) promethazine-DM 6.25 mg-15 mg/5 mL 5 ml PO Q6H PRN 12/23/21 12/23/21 Unknown History oral syrup tamsulosin 0.4 mg capsule 0.4 mg PO BID 12/23/21 12/23/21 12/23/21 History Allergies Allergy/AdvReac Type Severity Reaction Status Date / Time amlodipine Allergy pedal edema Verified 12/23/21 12:42 hydralazine AdvReac ADR-Headach Verified 12/23/21 12:42 e PFSH Acute PFSH: Medical History Bilateral carotid artery stenosis BPH (benign prostatic hyperplasia) BPH loc w urin obs/LUTS Coronary artery disease CVA (cerebral vascular accident) GERD (gastroesophageal reflux disease) Hyperlipidemia Hypertension Osteoarthritis Urolithiasis Surgical History H/O lithotripsy History of heart artery stent x8 Family History Father CAD (coronary artery disease) Stroke Mother CAD (coronary artery disease) Other Hyperlipidemia Hypertension Denies family history of Diabetes Clotting disorder Dementia Chronic kidney disease (CKD) Anesthesia complication Bleeding disorder Lung disease Cancer Social History Smoking and tobacco status: never smoked Alcohol intake: never Adopted: No Caregiver/support person: No Lives independently: Yes Marital status: / Current occupational status: retired Vitals/I&O/Wt Last Vital Signs Temp 97.2 F L 12/23/21 11:20 Pulse 57 L 12/23/21 11:20 Resp 20 H 12/23/21 11:20 BP 101/52 12/23/21 11:20 Pulse Ox 93 12/23/21 11:20 12/22/21 12/23/21 12/23/21 22:59 06:59 14:59 Intake Total 1000 / 1000 Balance 1000 / 1000 Weight last 48 hrs Weight 70.307 kg Physical Exam Narrative: General: Alert oriented x3, patient seen sitting up in bed appearing comfortable at this time having his echo done. HEENT: Normocephalic, atraumatic, EOMI, breathing normally on room air no acute distress no conversational dyspnea. Cardio: Bradycardia normal S1-S2, Respiratory: Clear to auscultation bilaterally with mild crackles at bases. GI: Abdomen soft, nontender, nondistended, bowel sounds + Behavior: Appropriate and cooperative Extremities: Trace edema bilateral lower extremities, no cyanosis Data : 12/24/21 02:34 12/24/21 02:34 A&P Assessment and plan (1) Syncope: Status: Acute (2) Bradycardia: Status: Acute (3) BPH loc w urin obs/LUTS: Status: Acute (4) Hypertension: Status: Acute Qualifiers: Hypertension type: essential hypertension Qualified Code(s): I10 - Essential (primary) hypertension (5) Coronary artery disease: Status: Acute Qualifiers: Associated angina: without angina Coronary Disease-Associated Ar lucy/Lesion type: yuhaaviatam artery [place] vs. transplanted heart: yuhaaviatam heart Qualified Code(s): I25.10 - Atherosclerotic heart disease of yuhaaviatam coronary artery without angina pectoris (6) Hyperlipidemia: Status: Acute Qualifiers: Hyperlipidemia type: mixed hyperlipidemia Qualified Code(s): E78.2 - Mixed hyperlipidemia (7) Bilateral carotid artery stenosis: Status: Acute (8) Chronic migraine without aura, intractable, with status migrainosus: Status: Acute (9) Neurodegenerative gait disorder: Status: Acute Plan #Syncopal episodes x2 #Fall at home, with another recent fall with bruising on chin #History of CVA #GERD #Hyperlipidemia #Hypertension #Bilateral carotid artery stenosis #CAD status post PCI status post restenosis, status post PCI #CHELY on CKD, baseline 1.6-1.7 #Right lower lobe pneumonia ? Check head CT - CXR shows possible infiltrate right lower lobe. Will check CT chest ? Monitor on telemetry ? Hold antihypertensive and AV noemy blocking agents ? Continue levothyroxine ? Hold tamsulosin as well ? Check echo ? Check carotid Dopplers ? Continue Plavix. ? We will monitor in ICU for tonight ? EKG did not show ischemic changes. Check serial troponins ? Sliding scale insulin -Patient will need event monitor at discharge. ? Start ceftriaxone and azithromycin for right lower lobe pneumonia. I will check procalcitonin. Full code Attestations Medical Necessity Statement*: Monitor in ICU tonight. Patient is bradycardic and hypotensive. He will need to stay in hospital for evaluation for syncope and monitoring on telemetry. Further management decision based on work-up. Coding Level of Care Code Acute Rigging Man for Chg Fwd Diagnoses Syncope R55 Bradycardia R00.1 BPH loc w urin obs/LUTS N40.1 Hypertension I10 Hypertension type: essential hypertension Coronary artery disease I25.10 Associated angina: without angina Coronary Disease-Associated Artery/Lesion type: yuhaav[place]am artery [place] vs. transplanted heart: yuhaaviatam heart Hyperlipidemia E78.2 Hyperlipidemia type: mixed hyperlipidemia Bilateral carotid artery stenosis I65.23 Chronic migraine without aura, intractable, with status migrainosus G43.711 Neurodegenerative gait disorder R26.89
--- NOTE | 2021-12-23 14:59 | USCV_ITS ---
Des Fuller Age: 86 Gender: M : 1935 Exam Date: 12/23/2021 16:45 Ordering Phys: Mitali Hilton MD Technologist: Cliff Davis [place] [facility] [place]: cva Risk Factors: Unknown Previous Vascular Surgery: Right Brachial BP: / Left Brachial BP: / Right Left Velocity (cm/s) Spectral Plaque Velocity (cm/s) Spectral Plaque Syst/Diast Broadening Syst/Diast Broadening 57.30/ 8.80 Prox CCA 91.70 / 19.80 82.70/ 14.30 Hetro Mid CCA 73.90 / 17.60 289.00/34.20 PST Hetro Distal CCA 95.90 / 19.80 Hetro 323.00/55.90 PST Hetro Prox ICA 156.90/ 32.60 Hetro 312.00/45.00 Hetro Mid ICA 141.40/ 20.20 Hetro 212.85/34.95 Distal ICA 139.80/ 21.80 89.50 ECA 103.60 1.12 ICA/CCA 1.64 Antegrade Vertebral Antegrade 81.00/ 18.00 cm/s 50.00/ 7.90 cm/s Subclavian 136.7 67.70 0 CONCLUSIONS Right ICA stenosis 70-99%. Severe atheromatous plaque right carotid bulb/ICA. Recommend CTA. This is progressed compared to 01/2020 Left ICA stenosis 50-69%. Moderate atheromatous plaque left carotid bulb/ICA. Normal antegrade Doppler flow noted in the right vertebral artery. Normal antegrade Doppler flow noted in the left vertebral artery. Syd Cordoba MD (Electronically Signed) Final Date: 24 December 2021 09:30 S
--- NOTE | 2021-12-23 14:59 | USCV_ITS ---
Des Fuller Age: 86 Gender: M : 1935 Exam Date: 12/23/2021 15:44 Ordering Phys: Mitali Hilton MD Technologist: Cliff Davis Exam Location: [facility] [place] Indication: cva BP: 134 / 75 HR: 45 Rhythm: Sinus Technical Quality: Adequate MEASUREMENTS (Male / Female) Normal Values 2D ECHO LV Diastolic Diameter PLAX 3.7 cm 4.2 - 5.9 / 3.9 - 5.3 cm LV Systolic Diameter PLAX 1.9 cm IVS Diastolic Thickness 1.0 cm 0.6 - 1.0 / 0.6 - 0.9 cm IVS Systolic Thickness 1.2 cm LVPW Diastolic Thickness 1.0 cm 0.6 - 1.0 / 0.6 - 0.9 cm LVPW Systolic Thickness 1.1 cm LVOT Diameter 2.0 cm LV Ejection Fraction 2D Teich 78.1 % LV Ejection Fraction MOD 2C 59.9 % LV Ejection Fraction 2C AL 59.3 % LA Diameter 3.1 cm Aorta at Sinotubular Diameter 2.9 cm IVC Diameter 1.3 cm M-MODE Aortic Annulus Diameter 3.6 cm LA Ao Ratio MM 0.9 MV E Point Septal Separation 0.7 cm DOPPLER AV Peak Velocity 123.0 cm/s LVOT Peak Velocity 111.0 cm/s AV Area Cont Eq vti 3.7 cm squared AV Area Cont Eq pk 2.9 cm squared MV Area PHT 5.0 cm squared Mitral E to A Ratio 1.3 MV E' Velocity 75.0 cm/s TR Peak Velocity 149.0 cm/s TR Peak Gradient 8.9 mmHg TV Peak E Velocity 78.0 cm/s Right Atrial Pressure 3.0 mmHg Pulmonary Artery Systolic Pressu 11.9 mmHg PV Peak Velocity 109.0 cm/s FINDINGS Left Ventricle Normal left ventricular size and systolic function, EF 66 %. No regional wall motion abnormalities. Right Ventricle The right ventricle is normal in size and function. Right Atrium The right atrium is normal in size. Left Atrium The left atrium is normal in size. Mitral Valve Trace mitral valve regurgitation. Aortic Valve Thickened aortic valve. Trace aortic valve regurgitation. Tricuspid Valve Trace tricuspid valve regurgitation. Estimated pulmonary artery peak systolic pressure within normal limits Pulmonic Valve Pulmonic valve not well visualized. Pericardium Normal pericardium without effusion. Aorta Normal aortic annulus size. IVC Normal IVC dimension with <50% respiratory change of the inferior vena cava. CONCLUSIONS Normal left ventricular size and systolic function, EF 66 %. No regional wall motion abnormalities. Thickened aortic valve. Trace aortic valve regurgitation. Trace tricuspid valve regurgitation. Estimated pulmonary artery peak systolic pressure within normal limits. Normal cardiac chamber sizes. No obvious intracardiac masses. No pericardial effusion. Compared to the study from 12/13/2018, there may not be a significant change Dr Tree Melton MD FACC (Electronically Signed) Final Date: 24 December 2021 06:58 S
--- NOTE | 2021-12-23 15:03 | ECG_ITS ---
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 Measurements Intervals [place] Rate: 50 P: 49 NC: 161 QRS: 66 QRSD: 91 T: 78 QT: 453 QTc: 417 Interpretive Statements SINUS BRADYCARDIA NONSPECIFIC T-WAVE ABNORMALITY Compared to ECG 12/23/2021 11:20:55 No significant changes Electronically Signed On 12-23-2021 21:20:14 CDT by Suzanne Montoya M.D. [id number]
--- NOTE | 2021-12-23 15:04 | CT_ITS ---
WS: [id number] CT CHEST TECHNIQUE: Noncontrast CT of the chest with coronal and sagittal reformatted images. CLINICAL INFORMATION: r/o pneumonia COMPARISON: CTA chest December 16, 2021 DLP: 619.[address] scans at [facility] use at least one of these dose optimization techniques: automated e xposure control; mA and/or kV adjustment per patient size (includes targeted exams where dose is matc hed to clinical indication); or iterative reconstruction. FINDINGS: Moderate chronic emphysematous changes. Patchy airspace infiltrates in the RIGHT lower lobe new from the prior CT December 16, 2021. Associated air bronchograms. Findings compatible with pneumonia. Focal ar ea of subtotal consolidation measures 6.5 x 3.6 CM. Infiltrate extends to the RIGHT infrahilum. Slight atelectasis LEFT lower lobe. Aortic calcification. Coronary calcification. Calcified anterior mediastinal, AP window and hilar lymph nodes. Calcified subcarinal lymph nodes. Normal GE junction. Splenic granulomas. Fatty atrophy of the pancreas. Adrenal glands are normal. CT/CT chest con [id number] IMPRESSION: 1. Patchy airspace infiltrate in RIGHT lower lobe posteriorly with subtotal co nsolidation is new from December 16, 2021 consistent with pneumonia. 2. Slight atelectasis LEFT lower lobe. 3. Moderate chronic emphysematous changes. 4. No other significant changes compared to previous
--- NOTE | 2021-12-23 15:05 | CT_ITS ---
WS: [id number] CT NECK TECHNIQUE: Noncontrast CT of the neck with coronal and sagittal reformatted images. CLINICAL INFORMATION: rule out hematoma COMPARISON: and CT cervical December 09, 2021 DLP: 946.[address] scans at [facility] use at least one of these dose optimization techniques: automated e xposure control; mA and/or kV adjustment per patient size (includes targeted exams where dose is matc hed to clinical indication); or iterative reconstruction. FINDINGS: Cervical curve convex LEFT. Moderate spondylitic changes cervical spine. Alignment appears unchanged since the prior cervical spine CT. Mild mucosal thickening ethmoid air cells. Mastoid air cells are well aerated. Normal posterior nasop harynx. Normal parapharyngeal fat. No evidence of supraglottic or glottic mass considering motion art ifact. Some images are moderately degraded by patient motion and swallowing artifact0. Subglottic air way appears patent. Lung apices are well aerated. Parotid glands are normal. Normal submandibular glands. No evidence of neck hematoma or fluid collect ion. CT/CT neck wo con [id number] IMPRESSION: Some images moderately degraded by patient motion and swallowing ar tifact. 1. Supraglottic and glottic airway appear patent. Subglottic airway appears pa tent. 2. Air distended upper thoracic esophagus. 3. No evidence of neck mass or fluid collection. No cervical lymphadenopathy. 4. No other significant findings considering motion artifact.
[2021-12-23 15:39] LABS: Lactic Sepsis W/Reflex 2.2 mmol/L (0.5-2.2)
[2021-12-23 15:40] LABS: NT Pro B Type Natriuretic Pept 1341 pg/mL (0-450)
--- NOTE | 2021-12-23 17:03 | ECG_ITS ---
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 Measurements Intervals [place] Rate: 47 P: 97 AL: 165 QRS: 65 QRSD: 89 T: 68 QT: 487 QTc: 431 Interpretive Statements SINUS BRADYCARDIA Compared to ECG 12/23/2021 15:15:06 T-wave abnormality no longer present Electronically Signed On 12-23-2021 21:28:40 CDT by Suzanne Montoya M.D. [id number]
[2021-12-23 17:04] LABS: Troponin(5th) Baseline 33 ng/L (0-15)
[2021-12-23] MEDS: heparin 5,000 unit/mL INJ 1 mL 5000 UNIT SUBCUT (17:25)
[2021-12-23] MEDS: azithromycin 500 MG in sodium chloride 0.9% 250 ML 250 MG IV (17:27)
[2021-12-23 18:28] LABS: Reflex Lactate Order REFLEX LACTIC ORDERD
[2021-12-23 19:41] LABS: Troponin 5 2HR 32.28 ng/L (0-15)
[2021-12-23 19:42] LABS: Troponin 5 2HR Delta -0.72 ABS# (0-10)
--- NOTE | 2021-12-23 20:19 | PC.NURSE ---
New Orders Received Received verbal orders from Dr. Hilton to discontinue the patients Plavix starting with the 2100 dose due this evening.
[2021-12-23 22:48] LABS: Troponin 5 6HR 30.22 ng/L (0-15)
[2021-12-23 22:49] LABS: Lactic Acid level (Lactate) 0.6 mmol/L (0.5-2.2); Troponin 5 6HR Delta -2.78 ng/L (0-12)
[2021-12-24] VITALS (68 sets, daily range): BP systolic 112–159; BP diastolic 49–78; PULSE 39–66; RESP 10–28; TEMP 36.7–36.8; O2SAT 91–97
[2021-12-24] MEDS: benzonatate 100 mg Capsule PO ×2 (00:23→18:17)
[2021-12-24] MEDS: sodium chloride 0.9% 1,000 ML 100 ML IV (02:36)
[2021-12-24 03:43] LABS: Basophils % 0.2 %; Eosinophils # 0.2 10^3/uL (0.0-0.8); Eosinophils % 2.2 %; Hematocrit 30.3 % (42.0-52.0); Hemoglobin 10.3 g/dL (11.7-16.6); Lymphocytes # 0.8 10^3/uL (0.8-4.8); Lymphocytes % 8.1 %; Mean Corpuscular Hemoglobin 30.7 pg (28.0-34.0); Mean Corpuscular Volume 90.4 fl (80-94); Mean Platelet Volume 9.8 fL (7.4-10.4); Monocytes # 0.8 10^3/uL (0.2-0.9); Monocytes % 8.4 %; Neutrophils # 7.58 10^3/uL (1.8-7.7); Neutrophils % 80.6 %; Nucleated Red Blood Cells % 0 %; Platelet Count 234 10^3/cmm (130-400); Red Blood Count 3.35 10^6/uL (4.1-5.3); Red Cell Distribution Width 13.9 % (12.1-15.1); White Blood Count 9.4 10^3/uL (4.0-10.0)
[2021-12-24 04:04] LABS: Alanine Aminotransferase 22 U/L (0-41); Albumin Level 2.5 g/dL (3.5-5.2); Alkaline Phosphatase 96 IU/L (40-130); Anion Gap 13.9 (5-19); Aspartate Amino Transferase 22 U/L (0-40); Blood Urea Nitrogen 43 mg/dL (8-23); Calcium 7.9 mg/dL (8.5-10.5); Carbon Dioxide 22 mmol/L (22-29); Chloride 105 mmol/L (98-107); Globulin 3.6 g/dL (1.3-4.6); Glucose 117 mg/dL (65-115); Magnesium 1.9 mg/dL (1.7-2.3); Osmolality Calculated 296 mOsm/kg (285-295); Potassium 3.9 mmol/L (3.5-5.1); Sodium 137 mmol/L (136-145); Total Bilirubin 0.4 mg/dL (0.15-1.2); Total Protein 6.1 g/dL (6.6-8.7)
[2021-12-24] MEDS: levothyroxine 50 mcg Tablet PO (05:05)
[2021-12-24] MEDS: heparin 5,000 unit/mL INJ 1 mL 5000 UNIT SUBCUT ×2 (05:05→15:17)
--- NOTE | 2021-12-24 07:24 | PC.NURSE ---
received report, reviewed poc and assumed care of patients. no needs identified at this time
[2021-12-24] MEDS: albuterol 8 gm MDI 2 PUFF INHALATION (08:17)
[2021-12-24] MEDS: acetaminophen 325 mg Tablet 650 MG PO (09:00)
[2021-12-24] MEDS: pantoprazole DR 40 mg Tablet PO (09:01)
[2021-12-24] MEDS: cefTRIAXone 1,000 MG in sodium chloride 0.9% (plus) 50 ML 100 MG IV (09:01)
--- NOTE | 2021-12-24 13:40 | P.PN_ITS ---
Subjective Subjective: feels a lot better but still a bit lightheaded at times delta trop negative bradycardic all night and currently in 40's Vitals/I&O/Wt Last Vital Signs Temp 98.1 F 12/24/21 04:00 Pulse 51 L 12/24/21 11:00 Resp 24 H 12/24/21 11:00 BP 118/57 12/24/21 11:00 Pulse Ox 97 12/24/21 11:00 12/23/21 12/24/21 12/24/21 22:59 06:59 14:59 Intake Total 370 / 1370 1050 / 2420 1050 / 1050 Output Total 15 / 15 Balance 370 / 1370 1035 / 2405 1050 / 1050 Weight last 48 hrs Weight 73.437 kg Weight 70.307 kg Physical Exam Narrative: General: Alert oriented x3, patient seen sitting up in bed appearing comfortable HEENT: Normocephalic, atraumatic, EOMI, breathing normally on room air no acute distress no conversational dyspnea. Cardio: Bradycardia normal S1-S2, Respiratory: Clear to auscultation bilaterally with mild crackles at bases. GI: Abdomen soft, nontender, nondistended, bowel sounds + Behavior: Appropriate and cooperative Extremities: Trace edema bilateral lower extremities, no cyanosis Data : 12/24/21 02:34 12/24/21 02:34 Micro: Microbiology 12/23/21 16:28 Blood Culture - Preliminary Blood SPECIMEN COLLECTED 12/23/21 16:00 Blood Culture - Preliminary Blood SPECIMEN COLLECTED A&P Assessment and plan (1) Pneumonia: Status: Acute (2) Syncope: Status: Acute (3) Bradycardia: Status: Acute (4) Leg edema: Status: Acute (5) Urolithiasis: Status: Acute (6) BPH loc w urin obs/LUTS: Status: Acute (7) Hypertension: Status: Acute Qualifiers: Hypertension type: essential hypertension Qualified Code(s): I10 - Essential (primary) hypertension (8) Coronary artery disease: Status: Acute Qualifiers: Associated angina: without angina Coronary Disease-Associated Artery/Lesion type: [place] artery [place] vs. 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 Head CT did not show IC bleed. CTA neck reviewed. - CXR shows possible infiltrate right lower lobe. CT chest showed pneumonia. ? Monitor on telemetry ? Hold antihypertensive and AV noemy blocking agents ? Continue levothyroxine ? Hold tamsulosin as well ? Echo complete - Carotid dopplers showed right ICA stenosis 70-99%. Progression since previous study. CTA recommended. - Cr high. In light of CHELY will hold of on CTA for now. - WIll stop IV fluids and start lasix 40 IV daily. ? Continue Plavix. ? EKG did not show ischemic changes.? Delta troponin negative ? Sliding scale insulin - Patient will need event monitor at discharge. ? Continue ceftriaxone and azithromycin for right lower lobe pneumonia.? I will check procalcitonin. - Richie discussed case with cardiology. Will do stress test in AM. Full code Attestations Medical Necessity Statement*: Continue to tx in hospital for pneumonia and monitor bradycardia Coding Level of Care Code Acute Administrative Services Specialist for Chg Fwd Diagnoses Pneumonia J18.9 Syncope R55 Bradycardia R00.1 Leg edema R60.0 Urolithiasis N20.9 BPH loc w urin obs/LUTS N40.1 Hypertension I10 Hypertension type: essential hypertension Coronary artery disease I25.10 Associated angina: without angina Coronary Disease-Associated Artery/Lesion type: [place] artery [place] vs. transplanted heart: [place] heart Hyperlipidemia E78.2 Hyperlipidemia type: mixed hyperlipidemia Bilateral carotid artery stenosis I65.23 Neurodegenerative gait disorder R26.89 Sacroiliitis M46.1 Chronic migraine without aura, intractable, with status migrainosus G43.711
[2021-12-24] MEDS: FUROsemide 10 mg/mL SDV 4mL 40 MG IVP (15:16)
[2021-12-24] MEDS: azithromycin 500 MG in sodium chloride 0.9% 250 ML 250 MG IV (15:16)
--- NOTE | 2021-12-24 16:31 | ECG_ITS ---
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 Interpretive Statements NAME OF STUDY: LEXISCAN SESTAMIBI STRESS TEST INDICATION: Bradycardia, Syncope, Cardiac History PROCEDURE: At the baseline, the EKG revealed normal sinus rhythm with some nonspecific ST changes. Poor R wave progression. The baseline blood pressure was mm Hg with a heart rate of beats/min. Lexiscan was infused over a period of 20 seconds. A total of 0.4 milligrams of Lexiscan was infused. The stress phase was continued for a total of 5 minutes. Heart rate at the end of the stress phase was 76 with a blood pressure 143/67. The EKG at the peak infusion revealed nonspecific ST changes in the inferior and anterolateral leads. Patient was complaining of shortness of breath with the Lexiscan infusion. The symptoms gradually subsided after the stress test.. Sestamibi was injected 20 seconds after the Lexiscan infusion. Blood pressure at the end of the recovery phase was 144/66 with a heart rate of 73 per minute. CONCLUSION: 1. Nonspecific ST changes with the LexiScan infusion 2. No LexiScan induced chest pain or cardiac arrhythmia. Lexiscan induced shortness of breath 3. Normal blood pressure and heart rate response 4. Sestamibi/sestamibi perfusion scan pending; see separate report. Electronically Signed On 12-27-2021 11:38:08 CDT by Tree Melton M.D. [id number]
[2021-12-25] VITALS (43 sets, daily range): BP systolic 121–167; BP diastolic 53–107; PULSE 41–80; RESP 13–39; TEMP 36.6–36.9; O2SAT 91–97; BMI 22.7
[2021-12-25] MEDS: levothyroxine 50 mcg Tablet PO (05:00)
[2021-12-25] MEDS: heparin 5,000 unit/mL INJ 1 mL 5000 UNIT SUBCUT ×2 (05:00→15:32)
[2021-12-25] MEDS: regadenoson 0.4 Mg/5 ml Syringe IVP (07:47)
--- NOTE | 2021-12-25 07:58 | P.PN_ITS ---
Subjective Subjective: Patient seen this morning after returning from stress test. Bradycardic overnight. Lowest heart rate noted on telemetry 40. However yesterday at bedside he was 37. He states he feels okay. Is having a cough. Vitals/I&O/Wt Last Vital Signs Temp 97.8 F 12/25/21 04:30 Pulse 48 L 12/25/21 06:00 Resp 21 H 12/25/21 06:00 BP 153/71 12/25/21 06:00 Pulse Ox 93 12/25/21 06:00 12/24/21 12/25/21 12/25/21 22:59 06:59 14:59 Intake Total 250 / 1300 50 / 1350 Output Total 400 / 400 1000 / 1400 Balance -150 / 900 -950 / -50 Weight last 48 hrs Weight 69.853 kg Weight 73.437 kg Weight 70.307 kg Physical Exam Narrative: General: Alert faith ented x3, patient seen sitting up in bed appearing com fortable HEENT: No rmocephalic, atrau matic, EOMI, breat sera normally on r oom air no acute d istress no convers ational dyspnea. C ardio: Bradycardia normal S1-S2, Res piratory: Clear to auscultation bila terally with mild crackles at bases. GI: Abdomen soft, nontender, nondis tended, bowel soun ds + Behavior: Michael ropriate and coope rative Extremities : Trace edema bila teral lower extrem ities, no cyanosis Data : 12/24/21 02:34 12/24/21 02:34 Micro: Microbiology 12/23/21 16:28 Blood Culture - Preliminary Blood NEGATIVE TO DATE 12/23/21 16:00 Blood Culture - Preliminary Blood NEGATIVE TO DATE A&P Assessment and plan (1) Pneumonia: Status: Acute (2) Syncope: Status: Acute (3) Bradycardia: Status: Acute (4) Leg edema: Status: Acute (5) Urolithiasis: Status: Acute (6) BPH loc w urin obs/LUTS: Status: Acute (7) Hypertension: Status: Acute Qualifiers: Hypertension type: essential hypertension Qualified Code(s): I10 - Essential (primary) hypertension (8) Coronary artery disease: Status: Acute Qualifiers: Coronary Disease-Associated Artery/Lesion type: [place] artery [place] vs. transplanted heart: [place] heart Associated angina: without angina Quali fied Code(s): I25.10 - Atherosclerotic heart disease of [place] coronary artery without angina pectoris (9) Hyperlipidemia: Status: Acute Qualifiers: Hyperlipidemia type: mixed hyperlipidemia Qualified Code(s): E78.2 - Mixed hyperlipidemia (10) Bilateral carotid artery stenosis: Status: Acute Plan #Syncopal episodes x2 #Fall at home, with another recent fall with bruising on chin #History of CVA #GERD #Hyperlipidemia #Hypertension #Bilateral carotid artery stenosis #CAD status post PCI status post restenosis, status post PCI #CHELY on CKD, baseline 1.6-1.7 #Right lower lobe pneumonia ? Head CT did not show IC bleed. CTA neck not done due to CHELY. - CXR shows possible infiltrate right lower lobe. CT chest showed pneumonia. ? Monitor on telemetry ? Hold antihypertensive and AV noemy blocking agents ? Continue levothyroxine ? Hold tamsulosin as well ? Echo complete - Carotid dopplers showed right ICA stenosis 70-99%. Progression since previous study. CTA recommended. - Cr high. In light of CHELY will hold of on CTA for now. -Continue on Lasix 40 IV daily. ? Continue Plavix. ? EKG did not show ischemic changes.? Delta troponin negative ? Sliding scale insulin - Patient will need event monitor at discharge. ? Continue ceftriaxone and azithromycin for right lower lobe pneumonia.? -Patient had stress test done today. Results pending. Cardiology on board and consulted. Full code Attestations Medical Necessity Statement*: awaiting stress test results. Further course to be decided after that. WIll need continued monitoring and tx of above in hospital Coding Level of Care Code Acute Belt Fixer for Chg Fwd Diagnoses Pneumonia J18.9 Syncope R55 Bradycardia R00.1 Leg edema R60.0 Urolithiasis N20.9 BPH loc w urin obs/LUTS N40.1 Hypertension I10 Hypertension type: essential hypertension Coronary artery disease I25.10 Coronary Disease-Associated Artery/Lesion type: [place] artery [place] vs. transplanted heart: [place] heart Associated angina: without angina Hyperlipidemia E78.2 Hyperlipidemia type: mixed hyperlipidemia Bilateral carotid artery stenosis I65.23
[2021-12-25] MEDS: cefTRIAXone 1,000 MG in sodium chloride 0.9% (plus) 50 ML 100 MG IV (09:56)
[2021-12-25] MEDS: pantoprazole DR 40 mg Tablet PO (09:56)
--- NOTE | 2021-12-25 10:01 | PC.NURSE ---
Dr Hilton called to report stress test positive. May feed breakfast but NPO after. Will attempt to cath today if schedule allows. Hold AM Plavix until Dr Melton sees pt.
--- NOTE | 2021-12-25 10:08 | P.CONIM_ITS ---
Providers/Reason For Consult Consulting Physician/Specialty*: KENNY Melton MD/cardiology Reason for Consult*: Patient with abnormal Myocardial perfusion imaging Requesting Physician: Dr. Hilton Attending Physician: Mitali Hilton MD Primary Care Provider: Tam Farah DO History of Present Illness History of Present Illness Des Fuller is a 86 year old male with multiple medical problems, is admitted to the hospital through the emergency room, where he presented with complaints of difficulty in navigation and generalized weakness. He was found to have relatively low blood pressure and heart rate. Myocardial infarction was ruled out. He was found to have right lower lobe pneumonia. He had a Myocardial perfusion imaging today which was found to be abnormal. Cardiology consult is requested for further cardiac evaluation recommendations. This patient is a poor historian. He apparently has been having episodes where he finds himself difficult to navigate because of the feeling of heaviness in his lower extremities associated some numbness. He gets unsteady and then falls. He had a fall 2 weeks ago sustaining contusion of his head and neck region and laceration of the chin. According to the patient and his significant other he never had any syncopal episode. He knew when he is going to fall. Apparently he could not control himself. On the day of hospital admission, he was coming out of a restaurant. He was trying to get into the car. Apparently he had this feeling of both legs becoming heavy and numb. So somebody had to carry him to the car. He did not have any seizure activity. No bladder or bowel incontinence. No associated chest pain or palpitations. As per his significant other, the overall functional status has been slowly deteriorating. He was having a cough and shortness of breath for the last 1 week or so. No hemoptysis. He has a history of coronary artery disease. In 2017, he was admitted to the hospital with syncope, bradycardia and chest pain. He was found to have fe atures of a non-ST elevation myocardial infarction. Subsequent cardiac catheterization findings are as follows. - normal left main, 100% chronically occluded LAD, luminal irregularities of the circumflex with a proximal 50% stenosis and RCA which is diffusely diseased with highly calcified subtotally occluded distal region. ?The PDA also was subtotally occluded and diseased throughout its length with in-stent restenosis. ?He underwent successful PCI to the mid to distal RCA and proximal to mid PDA with 3 overlapping drug-eluting stents. He is complaining of having more cough today. He is bringing out yellowish/green sputum. Denies any chest pain. Has some amount of shortness of breath. He is afebrile. Review of Systems Narrative: CONSTITUTIONAL: No fever or chills. Has been having a cough and shortness of breath lately EYES: No blurring of vision or other visual disturbances lately. ENT: No hoarseness of voice, auditory disturbances or sore throat. CARDIOVASCULAR: As mentioned above. RESPIRATORY: As mentioned above. GASTROINTESTINAL: No hematemesis or melena. GENITOURINARY: No dysuria or hematuria. INTEGUMENTARY: No skin rashes or history of skin cancer. NEURO: History of CVA and is on loss of memory PSYCHIATRIC: No history of psychosis or major depression. HEMATOLOGIC: No bleeding disorders or significant anemia. ENDOCRINE: No history of polyuria or polydipsia. MUSCULOSKELETAL: Recent fall and contusion of the head and neck region ALLERGY/IMMUNOLOGY: As mentioned above. Medications/Allergies Home Medications Medication Instructions Recorded Confirmed Last Taken Type clopidogrel 75 mg tablet 75 mg PO BEDTIME 09/13/19 12/23/21 11/30/20 History levocetirizine 5 mg tablet 5 mg PO DAILY PRN 09/13/19 12/23/21 11/30/20 History levothyroxine 50 mcg tablet 50 mcg PO QAM 09/13/19 12/23/21 12/23/21 History pantoprazole 40 mg tablet,delayed 40 mg PO DAILY 09/13/19 12/23/21 11/30/20 History release red yeast rice 600 mg tablet 600 mg PO DAILY 09/13/19 12/23/21 11/30/20 History Fish Oil 1 cap PO DAILY 11/26/20 12/23/21 11/30/20 History prednisone 50 mg tablet 50 mg PO DAILY #5 tab 12/16/21 12/23/21 Unknown Rx acetaminophen 500 mg tablet 1,000 mg PO Q4H PRN 12/23/21 12/23/21 Unknown History albuterol sulfate 90 mcg/actuation 2 puff INHALATION Q6H PRN 12/23/21 12/23/21 Unknown History aerosol inhaler carvedilol 25 mg tablet 25 mg PO BID 12/23/21 12/23/21 12/23/21 09:00 History cephalexin 500 mg capsule 500 mg PO Q8H 12/23/21 12/23/21 12/20/21 History coenzyme Q10 100 mg capsule 100 mg PO DAILY 12/23/21 12/23/21 Unknown History (CoQ-10) hydrochlorothiazide 12.5 mg capsule 12.5 mg PO QAM 12/23/21 12/23/21 12/23/21 H istory losartan 50 mg tablet 50 mg PO DAILY 12/23/21 12/23/21 Unknown History metformin 500 mg tablet,extended 500 mg PO BID 12/23/21 12/23/21 Unknown History release 24 hr naproxen 250 mg tablet 250 - 500 mg PO Q12H PRN 12/23/21 12/23/21 Unknown History nitroglycerin 0.4 mg sublingual 0.4 mg SUBLINGUAL Q5M PRN 12/23/21 12/23/21 Unknown History tablet (Nitrostat) promethazine-DM 6.25 mg-15 mg/5 mL 5 ml PO Q6H PRN 12/23/21 12/23/21 Unknown History oral syrup tamsulosin 0.4 mg capsule 0.4 mg PO BID 12/23/21 12/23/21 12/23/21 History Allergies Allergy/AdvReac Type Severity Reaction Status Date / Time amlodipine Allergy pedal edema Verified 12/23/21 12:42 hydralazine AdvReac ADR-Headach Verified 12/23/21 12:42 e Current Medications Generic Name Dose Route Start Last Admin Trade Name Freq PRN Reason Stop Dose Admin Acetaminophen 650 mg 12/23/21 14:59 12/24/21 09:00 Acetaminophen 325 Mg Tablet PO 650 mg Q6H PRN Administration MILD PAIN Albuterol Sulfate 2 puff 12/23/21 17:57 12/24/21 08:17 Albuterol 8 Gm Mdi INHALATION 2 puff Q6H PRN Administration shortness of breath or wheezing Benzonatate 100 mg 12/23/21 23:48 12/24/21 18:17 Benzonatate 100 Mg Capsule PO 100 mg TID PRN Administration COUGH Furosemide 40 mg 12/24/21 14:15 12/24/21 15:16 Furosemide 10 Mg/Ml Sdv 4ml IVP 40 mg Q24H MANDI Administration Heparin Sodium (Porcine) 5,000 unit 12/23/21 16:00 12/25/21 05:00 Heparin 5,000 Unit/Ml Inj 1 Ml SUBCUT 5,000 unit Q12H MANDI Administration Ceftriaxone Sodium 1,000 mg/ 50 mls @ 100 mls/hr 12/24/21 09:00 12/25/21 09:56 Sodium Chloride IV 100 mls/hr DAILY MANDI Administration Protocol Azithromycin 500 mg/ Sodium 250 mls @ 250 mls/hr 12/23/21 15:30 12/24/21 16:16 Chloride IV Infused Q24H MANDI Infusion Protocol Levothyroxine Sodium 50 mcg 12/24/21 06:00 12/25/21 05:00 Levothyroxine 50 Mcg Tablet PO 50 mcg QAM MANDI Administration Pantoprazole Sodium 40 mg 12/24/21 09:00 12/25/21 09:[address] 40 Mg Tablet PO 40 mg DAILY MANDI Administration PFSH Acute PFSH: Medical History Bilateral carotid artery stenosis BPH (benign prostatic hyperplasia) BPH loc w urin obs/LUTS Coronary artery disease CVA (cerebral vascular accident) GERD (gastroesophageal reflux disease) Hyperlipidemia Hypertension Osteoarthritis Urolithiasis Surgical History H/O lithotripsy History of heart artery stent x8 Family History Father CAD (coronary artery disease) Stroke Mother CAD (coronary artery disease) Other Hyperlipidemia Hypertension Denies family history of Diabetes Clotting disorder Dementia Chronic kidney disease (CKD) Anesthesia complication Bleeding disorder Lung disease Cancer Social History Smoking and tobacco status: never smoked Alcohol intake: never Adopted: No Caregiver/support person: No Lives independently: Yes Marital status: / Current occupational status: retired Vitals/I&O/Wt Last Vital Signs Temp 97.8 F 12/25/21 04:30 Pulse 46 L 12/25/21 09:43 Resp 16 12/25/21 09:43 BP 147/61 12/25/21 08:11 Pulse Ox 96 12/25/21 09:43 12/24/21 12/25/21 12/25/21 22:59 06:59 14:59 Intake Total 250 / 1300 50 / 1350 240 / 240 Output Total 400 / 400 1000 / 1400 Balance -150 / 900 -950 / -50 240 / 240 Weight last 48 hrs Weight 154 lb Weight 161 lb 14.4 oz Weight 155 lb Physical Exam Narrative: GENERAL: The patient is alert and oriented times three. Not in any acute distress. HEENT: No significant pallor, icterus or lymphadenopathy. The pupils are symmetrical. Has some extensive ecchymosis in the right mandibular region and a sutured laceration at the inferior margin of the mandible. Oral cavity: There are no mucous membrane lesions. Funduscopic examination: The fundus is not visualized NECK: Trachea appears to be central. No masses noted. No JVD or thyromegaly shaniqua reciated. No carotid bruit. RESPIRATORY: Chest is symmetrical. No intercostals muscle retraction or any accessory muscle activation. There is no chest wall tenderness. Breath sounds are heard bilaterally. Scattered coarse crackles and occasional expiratory wheezing. Some bronchovesicular breath sounds in the right base. BREASTS: Deferred. HEART: The first and second heart sounds are normal. No S3. Systolic murmur grade 3 or 6 in the left sternal border. Ejection systolic murmur grade 2/6 in the base of the heart. ABDOMEN: No vessel pulsations or distention. No tenderness. No organomegaly appreciated. No abdominal bruit. Bowel sounds are normally heard. : Deferred. RECTAL: Deferred. LYMPHATIC: No lymphadenopathy noted in the neck or groin. EXTREMITIES: No edema or cyanosis. No clubbing. Dorsalis pedis and posterior pulses are palpable but is relatively low volume and amplitude. MUSCULOSKELETAL: No acute joint deformities or swelling SKIN: There are no significant scars or skin rash noted. NEUROPSYCHIATRIC: The patient is alert and oriented x3. Appears to be in a good mood. The higher functions are grossly within normal limits. No tremors or rigidity noted. Data : 12/24/21 02:34 12/24/21 02:34 Micro: Microbiology 12/23/21 16:28 Blood Culture - Preliminary Blood NEGATIVE TO DATE 12/23/21 16:00 Blood Culture - Preliminary Blood NEGATIVE TO DATE Echo: My impression: Normal left ventricular size and systolic function, EF 66 %. No ?regional wall motion abnormalities. ?Thickened aortic valve. Trace aortic valve regurgitation. ?Trace tricuspid valve regurgitation.? Estimated pulmonary artery ?peak systolic pressure within normal limits. ?Normal cardiac chamber sizes. ?No obvious intracardiac masses. ?No pericardial effusion. ?Compared to the study from 12/13/2018, there may not be a ?significant change Myocardial perfusion imaging: My impression: 1.? Myocardial perfusion imaging revealing moderate area of moderate to ?severely decreased tracer uptake in the inferior and apical regions with a ?significant reversibility, suggesting ischemia in the distribution of all the 3 ?coronary arteries. ?2.? Normal LV ejection fraction of 75% ?3.? Segmental wall motion analysis revealing no gross wall motion ?abnormalities. ?4.? Normal LV volume. EKG 1: My Interpretation: The EKG showed sinus bradycardia with a rate of 47 bpm. Nonspecific T wave changes. Poor our progression. EKG computer-generated impression: Head CT 12/23/21 11:35 IMPRESSION: 1. No evidence of intracranial hemorrhage or mass effect. 2. Moderate small vessel changes. Moderate parenchymal volume loss. 3. Tiny chronic lacunar infarct RIGHT caudate and RIGHT moore radiata. 4. Intracranial vascular calcification. 5. No significant changes since December 09, 2021. Chest X-Ray 12/23/21 14:34 IMPRESSION: 1. Findings suspicious for infiltrate in the right lower lobe. A detailed PA and lateral chest would be helpful for more detailed evaluation if thought to be cli nically warranted. Chest CT 12/23/21 15:04 IMPRESSION: 1. Patchy airspace infiltrate in RIGHT lower lobe posteriorly with subtotal consolidation is new from December 16, 2021 consistent with pneumonia. 2. Slight atelectasis LEFT lower lobe. 3. Moderate chronic emphysematous changes. 4. No other significant changes compared to previous Neck CT 12/23/21 15:05 IMPRESSION: Some images moderately degraded by patient motion and swallowing artifact. 1. Supraglottic and glottic airway appear patent. Subglottic airway appears patent. 2. Air distended upper thoracic esophagus. 3. No evidence of neck mass or fluid collection. No cervical lymphadenopathy. 4. No other significant findings considering motion artifact. A&P Assessment and plan (1) Atherosclerosis of coronary artery of [place] heart without angina pectoris: He is known to have three-vessel coronary artery disease. Possibility of progression of disease especially in view of the abnormal Myocardial perfusion imaging is a strong consideration. This needs to be further evaluated. Status: Acute (2) Abnormal nuclear stress test: The Myocardial perfusion imaging is a history of ischemia in the distribution of all the 3 coronary arteries more so in the RCA distribution. Status: Acute (3) Frequent falls: The etiology is not clear. Hypotension/bradycardia causing this is a consideration. Patient's heart rate has been mostly in the 40s and 50s in the hospital. Systolic blood pressure has been around 100, most of the times. Status: Acute (4) Bradycardia: Patient is has a history of bradycardia. But has not had any symptomatic bradycardia documented in the recent past. Status: Acute (5) Hyperlipidemia: May continue on the current medications for the time being. Status: Acute Qualifiers: Hyperlipidemia type: mixed hyperlipidemia Qualified Code(s): E78.2 - Mixed hyperlipidemia (6) Bilateral carotid artery stenosis: Patient is a bilateral carotid artery stenosis also could be a contributing factor for his overall symptoms. This needs to be further evaluated with a CTA. Status: Acute (7) Pneumonia: Patient is remaining afebrile. He is on IV antibiotics. Status: Acute Plan For further evaluation of his coronary status, he requires a cardiac catheterization. However because of his ongoing cough, I may hold off on this for the time being. He also requested a CT of the neck to further evaluate the carotid arteries. Based on the clinical progress and the results of the above, further recommendations will be made. Thank you for the opportunity to evaluate this patient and make these recommendations. In the meanwhile, he may continue on the current medications. Consult Attestations Medical Necessity Statement: My stay Coding Level of Care Code Acute Burner Technician for [facility] Fwd History Detailed Exam Detailed Medical Decision Making Moderate Complexity Diagnoses Atherosclerosis of coronary artery of [place] heart without angina pectoris I25.10 Abnormal nuclear stress test R94.39 Frequent falls R29.6 Bradycardia R00.1 Hyperlipidemia E78.2 Hyperlipidemia type: mixed hyperlipidemia Bilateral carotid artery stenosis I65.23 Pneumonia J18.9
[2021-12-25 13:44] LABS: Add Urine Microscopic? YES; Bilirubin Urine Neg (Negative); Blood Urine Neg (Negative); Glucose Urine UA 1+ (Normal); Ketones Urine Negative (Negative); Leukocyte Esterase Urine Negative (Negative); Nitrate Urine Negative (Negative); Protein Urine Neg (Negative); Sulfosalicylic Acid Urine Negative (Negative); Urine Appearance Clear (CLEAR); Urine Color Yellow (Yellow); Urobilinogen Urine Norm (Negative); pH Urine 5 (5-7)
[2021-12-25 13:45] LABS: Add Urine Culture? Yes; Squamous Epithelial Cell Urine 0-4 /hpf (0-5)
[2021-12-25] MEDS: FUROsemide 10 mg/mL SDV 4mL 40 MG IVP (14:22)
--- NOTE | 2021-12-25 14:36 | PC.NURSE ---
Dr Melton contacted to verify date/time of cath. Dr Melton states pt is coughing too hard and cath will not take place today. Cath will take place possibly tomorrow but more than likely on Thursday. Consent signed and pt shaved. Dr Melton gave order to administer am Plavix at this time.
[2021-12-25] MEDS: benzonatate 100 mg Capsule PO ×2 (15:32→23:31)
[2021-12-25] MEDS: clopidogrel 75 mg Tablet PO (15:32)
[2021-12-25] MEDS: azithromycin 500 MG in sodium chloride 0.9% 250 ML 250 MG IV (15:33)
--- NOTE | 2021-12-25 16:33 | NMCV_ITS ---
NM jass perf SPECT r/s* [id number] Des Fuller Age: 86 Gender: M : 1935 Exam Date: 12/25/2021 07:04 Ordering Phys: Mitali Hilton MD Technologist: VITA Almodovar Exam Location: [facility] Indications: CHEST PAIN STRESS TEST Please see separate stress test report in [facility] for full findings IMAGE PROTOCOL Rest/Stress 1 Lexiscan Day Radiopharmaceutical Dose (mCi) Administration Site Administered by Rest: Tc-99m 10.7 IV VTIA [place] Sestamibi Stress:Tc-99m 32.7 IV VITA [place] Sestamibi Rest: 25-Dec-2021 60 Discovery 630 Stress: 25-Dec-2021 30 Discovery 630 0.4mg Lexiscan. Images obtained in supine and prone position. SPECT RESULTS Technical Quality: Good Raw Data Analysis: Normal Image Corrections: No attenuation or motion correction applied Summed Stress Score: 13 Summed Rest Score: 1 Summed Difference Score: 12 PERFUSION FINDINGS Moderate area of moderate to severely decreased tracer uptake was noted in the mid and apical inferior, apical anterior, apical lateral, apical septal and LV apex. Significant reversibility was noted in these regions. FUNCTIONAL RESULTS (calculated via Gated SPECT) Stress Image LV EF (%): 75 Stress EDV (mL):76 TID: 0.96 Stress ESV (mL):19 FUNCTIONAL FINDINGS: Segmental wall motion analysis revealing no gross wall motion abnormalities IMPRESSIONS 1. Myocardial perfusion imaging revealing moderate area of moderate to severely decreased tracer uptake in the inferior and apical regions with a significant reversibility, suggesting ischemia in the distribution of all the 3 coronary arteries. 2. Normal LV ejection fraction of 75% 3. Segmental wall motion analysis revealing no gross wall motion abnormalities. 4. Normal LV volume. No similar previous studies are available for comparison Dr Tree Melton MD [facility] (Electronically Signed) Final Date: 25 December 2021 09:49 S
--- NOTE | 2021-12-25 22:20 | PC.NURSE ---
Cath Dr. Melton called and order received for cardiac labor economics professor procedure for 12/27/21 at 12 noon. Order placed and procedure scheduled via soda dry house operator. Education provided to patient; patient verbalized understanding. Dr. Mayers contacted for diet order for 12/26; verbal order received for a cardiac diet until 0000 of 12/27/21 until which patient will change to npo for procedure.
[2021-12-26] VITALS (22 sets, daily range): BP systolic 113–171; BP diastolic 52–133; PULSE 38–84; RESP 13–31; TEMP 36.5–36.9; O2SAT 91–97; BMI 22.1
[2021-12-26] MEDS: heparin 5,000 unit/mL INJ 1 mL 5000 UNIT SUBCUT ×2 (04:04→16:18)
[2021-12-26 04:16] LABS: Basophils % 0.3 %; Eosinophils # 0.2 10^3/uL (0.0-0.8); Eosinophils % 1.8 %; Hematocrit 34.5 % (42.0-52.0); Hemoglobin 11.5 g/dL (11.7-16.6); Lymphocytes % 11.1 %; Mean Corpuscular HGB Conc 33.3 g/dL (30.0-36.0); Mean Corpuscular Hemoglobin 30.7 pg (28.0-34.0); Mean Corpuscular Volume 92.2 fl (80-94); Mean Platelet Volume 10.4 fL (7.4-10.4); Monocytes # 0.5 10^3/uL (0.2-0.9); Monocytes % 5.9 %; Neutrophils # 7.22 10^3/uL (1.8-7.7); Neutrophils % 80.2 %; Nucleated Red Blood Cells % 0 %; Platelet Count 224 10^3/cmm (130-400); Red Blood Count 3.74 10^6/uL (4.1-5.3); Red Cell Distribution Width 13.7 % (12.1-15.1)
[2021-12-26 04:52] LABS: Slide Review Slide Review Perform
[2021-12-26] MEDS: levothyroxine 50 mcg Tablet PO (05:25)
[2021-12-26 07:24] LABS: Blood Urea Nitrogen 29 mg/dL (8-23); Calcium 8.5 mg/dL (8.5-10.5); Carbon Dioxide 26 mmol/L (22-29); Chloride 101 mmol/L (98-107); Glucose 135 mg/dL (65-115); Magnesium 1.6 mg/dL (1.7-2.3); Osmolality Calculated 294 mOsm/kg (285-295); Sodium 138 mmol/L (136-145)
[2021-12-26 07:38] LABS: Anion Gap 14.9 (5-19); Potassium 3.9 mmol/L (3.5-5.1)
[2021-12-26] MEDS: pantoprazole DR 40 mg Tablet PO (08:14)
[2021-12-26] MEDS: clopidogrel 75 mg Tablet PO (08:14)
[2021-12-26] MEDS: cefTRIAXone 1,000 MG in sodium chloride 0.9% (plus) 50 ML 100 MG IV (08:15)
[2021-12-26] MEDS: benzonatate 100 mg Capsule PO ×2 (08:23→18:15)
--- NOTE | 2021-12-26 12:12 | P.PN_ITS ---
Subjective Subjective: Seen this morning. Sputum culture growing gram-negative rods. Patient doing well. Bradycardia still present. Lowest heart rate 37/38. Stress test however was positive in RCA territory. Patient will go for angiogram at some point after his pneumonia gets better. Vitals/I&O/Wt Last Vital Signs Temp 97.8 F 12/26/21 04:00 Pulse 38 L 12/26/21 10:00 Resp 20 H 12/26/21 10:00 BP 146/67 12/26/21 10:00 Pulse Ox 97 12/26/21 10:00 12/25/21 12/26/21 12/26/21 22:59 06:59 14:59 Intake Total 236 / 526 300 / 300 Output Total 450 / 550 Balance 236 / 426 -450 / -24 300 / 300 Weight last 48 hrs Weight 68.039 kg Weight 69.853 kg Physical Exam Narrative: General: Alert faith ented x3, patient seen sitting up in ?bed appearing com fortable HEENT: No rmocephalic, atrau matic, EOMI, breat sera normally on r oom air no acute d istress no convers ational dyspnea. C ardio: Bradycardia ?normal S1-S2, Res piratory: Clear to ?auscultation bila terally with mild crackles at bases. Improved compared to yesterday however. GI: Abdomen soft, ?nontender, nondis tended, bowel soun ds + Behavior: Michael ropriate and coope rative Extremities : Trace edema bila teral lower extrem ities, no cyanosi Urinary Catheter Management: Nixon Latex Free: Cath Placed During This Visit: yes Reason for Continuing Indwelling Catheter: Accurate Measurement of Urinary Output in Critically Ill Patients Urinary Catheter Date of Insertion: 12/25/21 Urinary Catheter Time of Insertion: 12:15 Data : 12/26/21 02:38 12/26/21 06:52 Micro: Microbiology 12/25/21 15:50 Gram Stain - Final Sputum - Expectorated Sputum Sputum Culture - Preliminary Gram Negative Rods A&P Assessment and plan (1) Frequent falls: Status: Acute (2) Abnormal nuclear stress test: Status: Acute (3) Atherosclerosis of coronary artery of [place] heart without angina pectoris: Status: Acute (4) Pneumonia: Status: Acute (5) Syncope: Status: Acute (6) Bradycardia: Status: Acute (7) Leg edema: Status: Acute (8) Urolithiasis: Status: Acute (9) Hypertension: Status: Acute Qualifiers: Hypertension type: essential hypertension Qualified Code(s): I10 - Essential (primary) hypertension (10) Hyperlipidemia: Status: Acute Qualifiers: Hyperlipidemia type: mixed hyperlipidemia Qualified Code(s): E78.2 - Mixed hyperlipidemia (11) Coronary artery disease: Status: Acute Qualifiers: Coronary Disease-Associated Artery/Lesion type: [place] artery [place] vs. transplanted heart: [place] heart Associated angina: without angina Qual ified Code(s): I25.10 - Atherosclerotic heart disease of [place] coronary artery without angina pectoris Plan #Syncopal episodes x2 #Fall at home, with another recent fall with bruising on chin #History of CVA #GERD #Hyperlipidemia #Hypertension #Bilateral carotid artery stenosis #CAD status post PCI status post restenosis, status post PCI #CHELY on CKD, baseline 1.6-1.7 #Right lower lobe pneumonia #Positive stress test ? Head CT did not show IC bleed. CTA neck not done due to CHELY. - CXR shows possible infiltrate right lower lobe. CT chest showed pneumonia. ? Monitor on telemetry ? Hold antihypertensive and AV noemy blocking agents ? Continue levothyroxine ? Echo complete - Carotid dopplers showed right ICA stenosis 70-99%. Progression since previous study. CTA recommended. - Cr high. In light of CHELY will hold of on CTA for now. ?CHELY improving. Creatinine 1.5 today. -Continue on Lasix 40 IV daily. ? Continue Plavix. ? EKG did not show ischemic changes.? Delta troponin negative ? Sliding scale insulin -Escalate antibiotics to Zosyn to cover for Pseudomonas as sputum culture is positive for gram-negative rods. Stop ceftriaxone and azithromycin. -Stress test positive. Plan for angiogram in a.m. Cardiology on board and c onsulted. ? Full code Transfer to cardiac stepdown unit. If no bed available patient will remain in the ICU. Patient will need bedside monitoring. Attestations Medical Necessity Statement*: Angiogram in a.m. Stress test positive. Coding Level of Care Code Acute Tab Machine Operator for [facility] Fwd Diagnoses Frequent falls R29.6 Abnormal nuclear stress test R94.39 Atherosclerosis of coronary artery of [place] heart without angina pectoris I25.10 Pneumonia J18.9 Syncope R55 Bradycardia R00.1 Leg edema R60.0 Urolithiasis N20.9 Hypertension I10 Hypertension type: essential hypertension Hyperlipidemia E78.2 Hyperlipidemia type: mixed hyperlipidemia Coronary artery disease I25.10 Coronary Disease-Associated Artery/Lesion type: [place] artery [place] vs. transplanted heart: [place] heart Associated angina: without angina
--- NOTE | 2021-12-26 12:50 | PC.SOCIAL ---
IMM UPDATED IMM dated and initialed and copy placed in chart and copy given to patient
[2021-12-26] MEDS: piperacillin-tazobactam 3.375 GM in sodium chloride 0.9% (plus) 50 ML IV ×2 (13:34→20:16)
[2021-12-26] MEDS: FUROsemide 10 mg/mL SDV 4mL 40 MG IVP (13:35)
--- NOTE | 2021-12-26 16:43 | PC.NURSE ---
Report called to JULIA Barbosa. Will wait for room 277-2 be be cleaned before transport. No further questions.
--- NOTE | 2021-12-26 17:45 | PC.NURSE ---
Patient and belongings taken to room 277-2 at 1740. Bedside report given to JULIA Barbosa.
--- NOTE | 2021-12-26 18:13 | PM.PN ---
Subjective Subjective: The patient is feeling little better. Cough is improving. Still the cough is productive. No hemoptysis. Denies any chest pain or chest tightness. No fever or chills. Medications: Medication Review Details: Current Medications Acetaminophen (Acetaminophen 325 Mg Tablet) 650 mg PO Q6H PRN PRN Reason: MILD PAIN Last Admin: 12/24/21 09:00 Dose: 650 mg Documented by: Albuterol Sulfate (Albuterol 8 Gm Mdi) 2 puff INHALATION Q6H PRN PRN Reason: shortness of breath or wheezing Last Admin: 12/24/21 08:17 Dose: 2 puff Documented by: Benzonatate (Benzonatate 100 Mg Capsule) 100 mg PO TID PRN PRN Reason: COUGH Last Admin: 12/26/21 08:23 Dose: 100 mg Documented by: Clopidogrel Bisulfate (Clopidogrel 75 Mg Tablet) 75 mg PO DAILY [facility] Last Admin: 12/26/21 08:14 Dose: 75 mg Documented by: Furosemide (Furosemide 10 Mg/Ml Sdv 4ml) 40 mg IVP Q24H [facility] Last Admin: 12/26/21 13:35 Dose: 40 mg Documented by: Heparin Sodium (Porcine) (Heparin 5,000 Unit/Ml Inj 1 Ml) 5,000 unit SUBCUT Q12H [facility] Last Admin: 12/26/21 16:18 Dose: 5,000 unit Documented by: Piperacillin Sod/Tazobactam (Sod 3.375 gm/ Sodium Chloride) 50 mls @ 12.5 mls/hr IV Q8H [facility] Last Infusion: 12/26/21 17:46 Dose: Infused Documented by: Levothyroxine Sodium (Levothyroxine 50 Mcg Tablet) 50 mcg PO QAM [facility] Last Admin: 12/26/21 05:25 Dose: 50 mcg Documented by: Ondansetron HCl (Ondansetron 2 Mg/Ml Sdv 2 Ml) 4 mg IVP Q2M PRN PRN Reason: NAUSEA Pantoprazole Sodium (Pantoprazole Dr 40 Mg Tablet) 40 mg PO DAILY [facility] Last Admin: 12/26/21 08:14 Dose: 40 mg Documented by: Vitals/I&O/Wt Last Vital Signs Temp 97.8 F 12/26/21 04:00 Pulse 57 L 12/26/21 16:00 Resp 31 H 12/26/21 16:00 BP 153/61 12/26/21 16:00 Pulse Ox 91 12/26/21 16:00 12/26/21 12/26/21 12/26/21 06:59 14:59 22:59 Intake Total 540 / 540 50 / 590 Output Total 450 / 550 1350 / 1350 Balance -450 / -24 540 / 540 -1300 / -760 Weight last 48 hrs Weight 150 lb Weight 154 lb Physical Exam Narrative: GENERAL: The patient is alert and oriented times three. Not in any acute distress. HEENT: No significant pallor, icterus or lymphadenopathy.Oral cavity: There are no mucous membrane lesions. NECK: Trachea appears to be central. No masses noted. No JVD or thyromegaly appreciated. Bilateral carotid bruit. Ecchymosis in the submandibular and the right cervical region RESPIRATORY: Chest is symmetrical. No intercostals muscle retraction or any accessory muscle activation. There is no chest wall tenderness. Breath sounds are heard bilaterally. Scattered coarse crackles and occasional expiratory wheezing. BREASTS: Deferred. HEART: The heart sounds are normal. No S3 or S4. Short systolic murmur in the left sternal border. No diastolic murmurs. No pericardial rub ABDOMEN: No vessel pulsations or distention. No tenderness. No organomegaly appreciated. Bowel sounds are normally heard. : Deferred. RECTAL: Deferred. LYMPHATIC: No lymphadenopathy noted in the neck. EXTREMITIES: No edema or cyanosis. No clubbing. MUSCULOSKELETAL: No acute joint deformities or swelling SKIN: There are no significant rashes or ecchymosis NEUROPSYCHIATRIC: The patient is alert and oriented x3. Appears to be in a good mood. No tremors or rigidity noted. Urinary Catheter Management: Nixon Latex Free: Cath Placed During This Visit: yes Reason for Continuing Indwelling Catheter: Accurate Measurement of Urinary Output in Critically Ill Patients Urinary Catheter Date of Insertion: 12/25/21 Urinary Catheter Time of Insertion: 12:15 Data : 12/26/21 02:38 12/26/21 06:52 Micro: Microbiology 12/25/21 15:50 Gram Stain - Final Sputum - Expectorated Sputum Sputum Culture - Preliminary Gram Negative Rods A&P Assessment and plan (1) Atherosclerosis of coronary artery of [place] heart without angina pectoris: He is known to have three-vessel coronary artery disease. Possibility of progression of disease especially in view of the abnormal Myocardial perfusion imaging is a strong consideration. This needs to be further evaluated. If the patient continues to improve, we may consider doing the cardiac catheterization tomorrow. In the meanwhile, he may continue on the current medications. This Status: Acute (2) Abnormal nuclear stress test: The Myocardial perfusion imaging is suggestive of ischemia in the distribution of all the 3 coronary arteries more so in the RCA distribution. Based on the angiogram findings, further recommendations will be made. Status: Acute (3) Frequent falls: The etiology is not clear. Hypotension/bradycardia causing this is a consideration. Patient's heart rate has been mostly in the 40s and 50s in the hospital. Systolic blood pressure has been around 100, most of the times. Status: Acute (4) Bradycardia: Patient is has a history of bradycardia. But has not had any symptomatic bradycardia documented in the recent past. Status: Acute (5) Hyperlipidemia: May continue on the current medications for the time being. Status: Acute Qualifiers: Hyperlipidemia type: mixed hyperlipidemia Qualified Code(s): E78.2 - Mixed hyperlipidemia (6) Bilateral carotid artery stenosis: Patient is a bilateral carotid artery stenosis also could be a contributing factor for his overall symptoms. This needs to be further evaluated with a CTA. Status: Acute (7) Pneumonia: Patient is remaining afebrile. He is on IV antibiotics. Status: Acute Plan Need for the cardiac catheterization was explained in detail with the patient. The risk of bleeding, hematoma, vascular injury, myocardial infarction, CVA, renal failure and other concomitant complications were explained in detail. Patient understood this well and consented to proceed. We may go ahead and schedule a procedure sometime tomorrow. Based on the results of the above tests and the patient's clinical progress, further recommendations will be made. Attestations Medical Necessity Statement*: Patient requires continued hospital stay for close monitoring and further management Coding Level of Care Code Acute Applications Consultant for [facility] Fwd Diagnoses Atherosclerosis of coronary artery of [place] heart without angina pectoris I25.10 Abnormal nuclear stress test R94.39 Frequent falls R29.6 Bradycardia R00.1 Hyperlipidemia E78.2 Hyperlipidemia type: mixed hyperlipidemia Bilateral carotid artery stenosis I65.23 Pneumonia J18.9
[2021-12-26] MEDS: acetaminophen 325 mg Tablet 650 MG PO (20:15)
[2021-12-27] VITALS (28 sets, daily range): BP systolic 123–187; BP diastolic 68–99; PULSE 45–85; RESP 11–29; TEMP 36.3–37; O2SAT 90–96
[2021-12-27] MEDS: heparin 5,000 unit/mL INJ 1 mL 5000 UNIT SUBCUT ×2 (04:01→15:24)
[2021-12-27] MEDS: levothyroxine 50 mcg Tablet PO (04:02)
[2021-12-27] MEDS: piperacillin-tazobactam 3.375 GM in sodium chloride 0.9% (plus) 50 ML IV ×3 (04:02→21:22)
[2021-12-27 04:57] LABS: Basophils # 0.1 10^3/uL (0.0-0.1); Basophils % 0.7 %; Eosinophils # 0.2 10^3/uL (0.0-0.8); Eosinophils % 2.7 %; Hematocrit 36.2 % (42.0-52.0); Hemoglobin 12.4 g/dL (11.7-16.6); Lymphocytes # 1.2 10^3/uL (0.8-4.8); Lymphocytes % 16.3 %; Mean Corpuscular HGB Conc 34.3 g/dL (30.0-36.0); Mean Corpuscular Hemoglobin 30.9 pg (28.0-34.0); Mean Corpuscular Volume 90.3 fl (80-94); Mean Platelet Volume 9.4 fL (7.4-10.4); Monocytes # 0.5 10^3/uL (0.2-0.9); Monocytes % 6.9 %; Neutrophils # 5.31 10^3/uL (1.8-7.7); Neutrophils % 72.9 %; Nucleated Red Blood Cells % 0 %; Platelet Count 291 10^3/cmm (130-400); Red Blood Count 4.01 10^6/uL (4.1-5.3); Red Cell Distribution Width 13.3 % (12.1-15.1); White Blood Count 7.3 10^3/uL (4.0-10.0)
[2021-12-27 05:19] LABS: Anion Gap 12.7 (5-19); Blood Urea Nitrogen 30 mg/dL (8-23); Calcium 9.1 mg/dL (8.5-10.5); Carbon Dioxide 29 mmol/L (22-29); Chloride 98 mmol/L (98-107); Glucose 135 mg/dL (65-115); Magnesium 1.7 mg/dL (1.7-2.3); Osmolality Calculated 290 mOsm/kg (285-295); Potassium 3.7 mmol/L (3.5-5.1); Sodium 136 mmol/L (136-145)
--- NOTE | 2021-12-27 06:58 | W.PM.OPSUD ---
Surgery/Procedure H&P Update DATE OF PROCEDURE: December 27, 2021 DATE H&P PERFORMED: 12/25/21 H&P UPDATE INFORMATION: I have reviewed H&P completed within last 30 days, I have examined patient prior to procedure and No changes to prior documentation CHANGES TO PREVIOUS DOCUMENTATION: Few scattered coarse crackles although Is okay that I will follow-up Mr. Morales the area so he he had some fever last night and this morning so that is why he and his hold on things recently going up. Ipsilaterally LALY history he side Xarelto relative postponed during today in home so we will need to keep him in the hospital for everything review we can reorder for the PREOP DIAGNOSIS: ASHD PRIMARY INDICATION FOR PROCEDURE: Abnormal Myocardial perfusion imaging/near syncope/bradycardia/previous PCI PLANNED PROCEDURE: Operation Date: 12/27/21 12:00 Proposed Procedures p Cardiac Catheterization(Left) - Tree Melton MD PATIENT REASSESSED PRIOR TO SEDATION, WITH NO CHANGE NOTED: Yes PHYSICAL EXAM: alert, oriented x 3, clear to auscultation bilaterally (Scattered expiratory wheezing occasional coarse crackles) and regular rate & rhythm AIRWAY EVAL/ANESTHESIA PLAN: normal airway, see other exam findings, ASA III, Monitored Anesthesia, Local Anesthesia, Risks, benefits & alternatives of sedation and/or procedure discussed and Patient agrees to continue as planned
--- NOTE | 2021-12-27 08:12 | P.PN_ITS ---
Subjective Subjective: Patient's pneumonia symptoms continue to improve. He is still having a cough but it is much better. Remains afebrile. White cell count is still in the normal range. Hemoglobin is stable. No new symptoms. Medications: Medication Review Details: Current Medications Acetaminophen (Acetaminophen 325 Mg Tablet) 650 mg PO Q6H PRN PRN Reason: MILD PAIN Last Admin: 12/26/21 20:15 Dose: 650 mg Documented by: Albuterol Sulfate (Albuterol 8 Gm Mdi) 2 puff INHALATION Q6H PRN PRN Reason: shortness of breath or wheezing Last Admin: 12/24/21 08:17 Dose: 2 puff Documented by: Benzonatate (Benzonatate 100 Mg Capsule) 100 mg PO TID PRN PRN Reason: COUGH Last Admin: 12/26/21 18:15 Dose: 100 mg Documented by: Clopidogrel Bisulfate (Clopidogrel 75 Mg Tablet) 75 mg PO DAILY [facility] Last Admin: 12/26/21 08:14 Dose: 75 mg Documented by: Furosemide (Furosemide 10 Mg/Ml Sdv 4ml) 40 mg IVP Q24H [facility] Last Admin: 12/26/21 13:35 Dose: 40 mg Documented by: Heparin Sodium (Porcine) (Heparin 5,000 Unit/Ml Inj 1 Ml) 5,000 unit SUBCUT Q12H [facility] Last Admin: 12/27/21 04:01 Dose: 5,000 unit Documented by: Piperacillin Sod/Tazobactam (Sod 3.375 gm/ Sodium Chloride) 50 mls @ 12.5 mls/hr IV Q8H [facility] Last Admin: 12/27/21 04:02 Dose: 12.5 mls/hr Documented by: Levothyroxine Sodium (Levothyroxine 50 Mcg Tablet) 50 mcg PO QAM [facility] Last Admin: 12/27/21 04:02 Dose: 50 mcg Documented by: Ondansetron HCl (Ondansetron 2 Mg/Ml Sdv 2 Ml) 4 mg IVP Q2M PRN PRN Reason: NAUSEA Pantoprazole Sodium (Pantoprazole Dr 40 Mg Tablet) 40 mg PO DAILY [facility] Last Admin: 12/26/21 08:14 Dose: 40 mg Documented by: Vitals/I&O/Wt Last Vital Signs Temp 97.8 F 12/27/21 04:00 Pulse 65 12/27/21 05:24 Resp 20 H 12/27/21 04:00 BP 151/81 12/27/21 04:00 Pulse Ox 95 12/27/21 04:00 12/26/21 12/27/21 12/27/21 22:59 06:59 14:59 Intake Total 370 / 910 290 / 1200 Output Total 1350 / 1350 400 / 1750 Balance -980 / -440 -110 / -550 Weight last 48 hrs Weight 150 lb 9.6 oz Weight 150 lb Physical Exam Narrative: GENERAL: The patient is alert and oriented times three. Not in any acute distress. HEENT: No significant pallor, icterus or lymphadenopathy.Oral cavity: There are no mucous membrane lesions. NECK: Trachea appears to be central. No masses noted. No JVD or thyromegaly appreciated.? Bilateral carotid bruit.? Ecchymosis in the submandibular and the right cervical region RESPIRATORY: Chest is symmetrical. No intercostals muscle retraction or any accessory muscle activation. There is no chest wall tenderness. Breath sounds are heard bilaterally.? Scattered coarse crackles BREASTS: Deferred. HEART: The heart sounds are normal.? No S3 or S4.? Short systolic murmur in the left sternal border.? No diastolic murmurs.? No pericardial rub ABDOMEN: No vessel pulsations or distention. No tenderness. No organomegaly appreciated.? Bowel sounds are normally heard. : Deferred. RECTAL: Deferred. LYMPHATIC: No lymphadenopathy noted in the neck. EXTREMITIES: No edema or cyanosis. No clubbing. MUSCULOSKELETAL: No acute joint deformities or swelling SKIN: There are no significant rashes or ecchymosis NEUROPSYCHIATRIC: The patient is alert and oriented x3. Appears to be in a good mood. No tremors or rigidity note Urinary Catheter Management: Nixon Latex Free: Cath Placed During This Visit: yes Reason for Continuing Indwelling Catheter: Acute Urinary Retention or Obstruction Urinary Catheter Date of Insertion: 12/25/21 Urinary Catheter Time of Insertion: 12:15 Data : 12/27/21 04:43 12/27/21 04:43 Micro: Microbiology 12/25/21 15:50 Gram Stain - Final Sputum - Expectorated Sputum Sputum Culture - Preliminary Gram Negative Rods A&P Assessment and plan (1) Atherosclerosis of coronary artery of [place] heart without angina pectoris: He is known to have three-vessel coronary artery disease. Possibility of pr ogression of disease especially in view of the abnormal Myocardial perfusion imaging is a strong consideration. This needs to be further evaluated. We will go ahead and do the cardiac catheterization today. In view of his abnormal kidney function, he carries a high risk for contrast-induced nephropathy. This was discussed in detail with the patient and his daughter which they understood well and consented to proceed. Status: Acute (2) Abnormal nuclear stress test: The Myocardial perfusion imaging is suggestive of ischemia in the distribution of all the 3 coronary arteries more so in the RCA distribution. Based on the angiogram findings, further recommendations will be made. Status: Acute (3) Frequent falls: The etiology is not clear. Hypotension/bradycardia causing this is a consideration. Patient's heart rate has been mostly in the 40s and 50s in the hospital. Systolic blood pressure has been around 100, most of the times. Status: Acute (4) Bradycardia: Patient is has a history of bradycardia. But has not had any symptomatic bradycardia documented in the recent past. Status: Acute (5) Hyperlipidemia: May continue on the current medications for the time being. Status: Acute Qualifiers: Hyperlipidemia type: mixed hyperlipidemia Qualified Code(s): E78.2 - Mixed hyperlipidemia (6) Bilateral carotid artery stenosis: Patient is a bilateral carotid artery stenosis also could be a contributing factor for his overall symptoms. This needs to be further evaluated with a CTA. Status: Acute (7) Pneumonia: Patient is remaining afebrile. He is on IV antibiotics. Status: Acute Plan Need for the cardiac catheterization was explained in detail with the patient. The risk of bleeding, hematoma, vascular injury, myocardial infarction, CVA, renal failure and other concomitant complications were explained in detail. Patient understood this well and consented to proceed. We may go ahead with a cardiac catheterization this morning. Based on the results, further noah mmendations will be made. 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
[2021-12-27] MEDS: pantoprazole DR 40 mg Tablet PO (09:05)
[2021-12-27] MEDS: clopidogrel 75 mg Tablet PO (09:05)
[2021-12-27] MEDS: benzonatate 100 mg Capsule PO ×3 (09:07→21:22)
[2021-12-27] MEDS: losartan 50 mg Tablet PO (10:12)
[2021-12-27] MEDS: acetaminophen 325 mg Tablet 650 MG PO (10:14)
--- NOTE | 2021-12-27 12:00 | XACV_ITS ---
Exam Room: [facility] Ht: 175 cm Wt: 68 kg BSA: 1.82 m2 Gender: Male : 1935 Any Known Allergies: Other Exam Priority: Routine Procedure(s): Procedure Description: Diagnostic procedure Procedure Description: PCI procedure Procedure Description: Left Heart Catheterization Procedure Description: Drug Eluting Coronary Stent Procedure Description: PTCA Procedure Description: Coronary Angiography Geronimo THOMPSON; Diagnostic Cath Status: Urgent Diagnostic Findings * The left main is a medium caliber vessel with no significant stenotic lesions. * The left anterior descending artery is a medium caliber vessel with extensive stenting in the proximal and mid segment. There is a 60% in-stent stenosis in the proximal stented segment. Right after the first large septal manager access, the artery appears to be totally occluded in the stent. The distal LAD was found to be filled with left to left collaterals. * The left circumflex artery is a medium caliber vessel which gives off a high obtuse marginal branch. This branch was found to have around 50 to 60% diffuse tubular narrowing proximally. The second obtuse marginal artery was found to have a high-grade around 95 per stenosis proximally. The circumflex proper after the second obtuse marginal branch was found to be rudimentary and appears to continue in the AV groove, giving off multiple small branches. * The right coronary artery is a medium caliber dominant vessel which was found to have a high-grade tapering narrowing of around 95% proximally. The distal RCA was found to have a long stented segment which continuous into the PDA. In the PDA branch, there was a high-grade in-stent stenosis at the mid segment. The PLV branch was found to have mild to moderate diffuse disease. PCI Status: Elective PCI Indication: Other Interventional Findings * Procedure Detail: We engaged RCA with a JR4 guide catheter. IV heparin was administered to maintain ACT above 250s. 0.014 run-through guidewire was used to cross RCA and PDA stenosis and was put in distal vessel. We used 2.5 x 12 mm semicompliant balloon to predilate both lesions. This was followed by dilation of in-stent restenosis of PDA lesion with 2.75 x 27 mm NC balloon. We then placed 3.0 x 15 mm resolute Noreen drug-eluting stent in proximal to mid RCA. At this time final angiogram was performed that showed excellent stent expansion, minimal residual stenosis of PDA ISR and IVONNE-3 flow. Guidewire and guide catheter were removed. We then turned our attention to left circumflex to OM lesion. It was predilated with 2.5 x 12 mm semicompliant balloon. We then placed 2.5 x 22 mm resolute Noreen drug-eluting stent. At this time final angiogram showed excellent stent expansion, no residual stenosis and IVONNE-3 flow. Guidewire and guide catheter were removed. Patient left the [facility] [employer] in a stable condition.. * Mid Right Coronary Artery: 70% stenosis treated with a MDT NC EUPHORA RX [id number] BALLOON, and MDT R NOREEN 3.0X15 ALLAN. 0% residual stenosis, IVONNE: 3 flow. * Posterior Descending Right: 70% stenosis treated with a MDT NC EUPHORA RX 2.92I95SS BALLOON, and MDT NC EUPHORA RX 2.90I40BW BALLOON. 0% residual stenosis, IVONNE: 3 flow. * First Obtuse Marginal Branch Segment: 70% stenosis treated with a MDT NC EUPHORA RX 2.20M85PY BALLOON, and MDT R NOREEN 2.5X22 ALLAN. 0% residual stenosis, IVONNE: 3 flow. Conclusions 1. This is an 86-year-old white male with a history of coronary disease, status post PCI, is admitted to the hospital with an episode of near syncope. Patient was found to be bradycardic and somewhat hypotensive in the emergency room. Subsequent evaluation revealed also right lower lobe pneumonia. He had a Myocardial perfusion imaging which revealed a significant ischemia in the distribution of all the 3 coronary arteries. For further evaluation of his coronary arteries, a cardiac catheterization was recommended. Patient underwent left heart catheterization with left and right coronary angiogram today. The findings are as follows. 2. 1. The left main has no significant disease. #2 the left anterior descending artery appears to be chronically occluded right after the septal manager access. Fairly good left to left collaterals were noted filling of the distal LAD. 3. The left circumflex artery was found to have a high-grade stenosis of 95% in the proximal segment of the second obtuse marginal branch. The first obtuse marginal artery was found to have around 50 to 60% tubular narrowing proximally. The right coronary artery also has a tapering 90% gnosis proximally. The PDA branches found to have a high-grade in-stent stenosis at the mid segment. LVEDP of 16 mmHg. 3. I reviewed the cardiac catheterization with Dr. Garcia. It was thought to be appropriate to consider PCI of the OM 2 and the RCA lesions. At this point, Dr. Garcia took over further management of this patient. 4. S/p successful revascularization of Proximal to mid RCA with ALLAN x 1 and PDA with balloon angioplasty. LCx to OM 2 treated with DESx 1. 5. Mid Right Coronary Artery was treated with a Balloon, and Drug Eluting Stent. 6. Posterior Descending Right was treated with a Balloon, and Balloon. 7. First Obtuse Marginal Branch Segment was treated with a Balloon, and Drug Eluting Stent. Recommendations * Aspirin and plavix for atleast 1 year. * High intensity statin therapy. * Outpatient cardiology follow up in 4 weeks. Interventional RX Recommendation: PCI w/o planned CABG Diagnostic RX Recommendation: PCI w/o planned CABG LV EDP: 16 mmHg Left Ventriculography Findings: * LV gram was not performed because of the patient's abnormal kidney function and the limitations on the dye usage. The LVEDP was 16 mmHg. Pressures Phase:Rest AO : 125 / 64 ( 90 ) @ 8:24:00 AM 136 / 67 ( 93 ) @ 8:25:00 AM 138 / 65 ( 94 ) @ 8:27:00 AM 141 / 58 ( 94 ) @ 8:29:00 AM 142 / 87 ( 112 ) @ 8:32:00 AM 189 / 76 ( 118 ) @ 8:35:00 AM 191 / 76 ( 118 ) @ 8:35:00 AM 151 / 59 ( 94 ) @ 8:46:00 AM 163 / 73 ( 109 ) @ 8:53:00 AM 168 / 70 ( 111 ) @ 9:09:00 AM LV : 182 / -2 / 16 @ 8:34:00 AM 184 / -2 / 16 @ 8:35:00 AM Valves Phase:DefaultPhase AV : 0.0 @ 8:21:46 AM 0.0 @ 8:21:46 AM AV Mean Gradient: 0.0 @ 8:21:46 AM 0.0 @ 8:21:46 AM Clinical Evaluation EBL: 5mL-10mL Procedural Details Procedure Consent Obtained. Pre-Procedure Time Out. Identified patient by full name and date of as verbalized by the patient/guarantor. Does the consent match the physician's order: Yes. Accurate & Complete Informed Consent: Yes. Inpatient/Outpatient History & Physical on Chart: Yes. If H&P is completed, is and addenduem needed: No; If yes, is the addendum complete: N/A. Visualize and Verify Site with Patient/Guarantor: N/A. Relevant Radiology Images available: Yes. Pre-op teaching completed and patient verbalized understanding. The risks, benefits, and alternatives of sedation and/or procedure were discussed by physician. The patient agrees to continue. Procedure started. [facility] Clinical Fraility Score: 5: Mildly Frail. [employer] [employer] Indications: Worsening Angina. Chest Pain Symptom Assessment: Atypical Angina. Correct patient, site and procedure confirmed by cath team. Current diagnosis: NSTEMI. PERRLA. Strong, equal hand track manager bilaterally. Lungs clear x 5 lobes. IV Site on Arrival: 18 gauge in the left anticubital. IV Fluids: 0.9% NaCl at KVO. 0 mL infused prior to construction laborer. Oxygen started at 2liters/min via nasal canula. right groin was prepped with chloroprep then draped in the usual sterile fashion. right radial was prepped with chloroprep then draped in the usual sterile fashion. Physician notified. Baseline sample Acquired. HR: 49 BPM. Physician arrived. Physician scrubbed in. Immediate Pre-Procedure Time Out. Correct Patient: Yes; Correct Procedure: Yes; Correct Site: Yes; Correct Patient Position: Yes; Correct Supplies: Yes; Dried Flammable Prep: Yes; Blood Products Available: N/A;. Lidocaine 1% infiltrated to the right radial. Arterial access obtained. A 5 slovak Leonel catheter in over wire. Multiple views taken of left coronary artery. Dr. Garcia called to review films. Catheter redirected to the RCA. Catheter removed over the standard wire. A 5 slovak JR4 catheter in over wire. Multiple views taken of right coronary artery. Dr. Garcia arrived. EDP Sample taken: LV 182/-3,16; HR: 58 BPM; SpO2: 98%. Pullback taken: LV 184/-3,16; AO 189/76(118); Mean: 0mmHg, Peak to Peak: 0mmHg, SEP: 5sec/min; HR: 57 BPM; SpO2: 98%. Dr. Melton scrubbed out. Dr. Garcia scrubbed in to perform intervention. Family updated by phone. 6 slovak JR 4 guide catheter was inserted over the wire. Runthrough guidewire was advanced through the guide catheter to lesion in the distal RCA. Inflation number : 1 A MDT NC EUPHORA RX [id number] BALLOON was prepped and advanced across the R PDA , then inflated to 14 JOSSELINE for 0:22 seconds. Inflation number: 2 The MDT NC EUPHORA RX 2.88W95FM BALLOON was reinflated across the R PDA, to 14 JOSSELINE for 0:18 seconds. Inflation number: 3 The MDT NC EUPHORA RX 2.37X00TM BALLOON was reinflated across the R PDA, to 12 JOSSELINE for 0:12 seconds. Inflation number: 1 The MDT NC EUPHORA RX 2.25D11PL BALLOON was reinflated across the Mid RCA, to 12 JOSSELINE for 0:23 seconds. Balloon out. Inflation Number : 2 A MDT R NOREEN 3.0X15 ALLAN -Lot Number# __[id number] EXP: 03/18/2024 was prepped and advanced across the Mid RCA. The stent was deployed at 12 JOSSELINE for 0:29 seconds. Stent balloon out over wire. Results checked. Inflation number : 4 A MDT NC EUPHORA RX 2.11F84PS BALLOON was prepped and advanced across the R PDA , then inflated to 12 JOSSELINE for 0:20 seconds. Inflation number: 5 The MDT NC EUPHORA RX 2.39D01KY BALLOON was reinflated across the R PDA, to 12 JOSSELINE for 0:19 seconds. Inflation number: 6 The MDT NC EUPHORA RX 2.85B10FI BALLOON was reinflated across the R PDA, to 12 JOSSELINE for 0:36 seconds. Balloon out. Results checked. Wire out. Guide catheter out. ACT drawn. Results 240 seconds. Therapeutic limits - pre-heparin administration 90-150 seconds and monitoring heparin during a vascular procedure >250 seconds. 6 slovak XB 3 guide catheter was inserted over the wire. Runthrough guidewire was advanced through the guide catheter to lesion in the OM. Inflation number: 1 The MDT NC EUPHORA RX 2.33A48BY BALLOON was reinflated across the 1st Ob [place], to 12 JOSSELINE for 0:19 seconds. Inflation number: 2 The MDT NC EUPHORA RX 2.69W11HS BALLOON was reinflated across the 1st Ob [place], to 12 JOSSELINE for 0:16 seconds. Balloon out. Inflation Number : 3 A MDT R NOREEN 2.5X22 ALLAN -Lot Number# _[id number] EXP: 03/14/2024 was prepped and advanced across the 1st Ob Yaneth. The stent was deployed at 12 JOSSELINE for 0:25 seconds. Stent balloon out over wire. Wire out. Results checked. ACT drawn. Results 269 seconds. Therapeutic limits - pre-heparin administration 90-150 seconds and monitoring heparin during a vascular procedure >250 seconds. A TR Band was successful obtaining hemostatsis at the Right Radial artery insertion site. Guide catheter out. Post Procedure: Pulses reassessed and unchanged. PERRLA. Strong, equal hand track manager bilaterally. No VTE prophylaxis required. Total IV fluids: 315 mL. Medication's Wasted: Nitro = 49.8 mg. Complications: None. Estimated blood loss: 5mL-10mL. Responsiveness - Normal response to verbal stimuli; alert and oriented, PERRLA. Airway - Unaffected, no intervention required; spontaneous ventilation. Circulation: W/N/L, pulses unchanged. Nausea/Vomiting: No. Procedure completed. Vital chart was stopped. Patient transferred by wheelchair to [facility]. Access Site Site: Right Radial artery Sheath Size: 6 Fr Hemostasis Method: TR Band Hemostasis Success: Successful Procedure Medications Start: 7:06 AM Stop: 7:06 AM Medication: 0.9% Saline Amount: 250 ml Route: I.V. bolus Start: 7:12 AM Stop: 7:12 AM Medication: Versed Amount: 1 mg Route: I.V. Start: 7:16 AM Stop: 7:16 AM Medication: Fentanyl Amount: 25 mcg Route: I.V. Start: 7:26 AM Stop: 7:26 AM Medication: Heparin Amount: 5000 units Route: I.V. Start: 7:21 AM Stop: 7:21 AM Medication: Nitrogylcerin Amount: 200 mcg Route: I.A. Start: 7:44 AM Stop: 7:44 AM Medication: Heparin Amount: 3000 units Route: I.V. Start: 7:56 AM Stop: 7:56 AM Medication: Heparin Amount: 1000 units Route: I.V. Start: 8:04 AM Stop: 8:04 AM Medication: Heparin Amount: 2000 units Route: I.V. Start: 8:17 AM Stop: 8:17 AM Medication: Plavix Amount: 300 mg Route: P.O. I, the attending physician, have reviewed and verified all procedure medications. Yes, all medications given per verbal order History/Risk Factors Hypertension: Yes Dyslipidemia: Yes Peripheral Arterial Disease (PAD): No Myocardial Infarction (CT): Yes Obesity: No Renal Disease: No Prior Interventions PCI: Yes CABG: No Valve Surgery: No Date of PCI: 11/20/2016 Report Signatures Interventional Workflow Finalized by Gómez Garcia MD on 01/07/2022 10:41 AM Diagnostic Workflow Finalized by Dr Tree Melton MD [facility] on 12/27/2021 03:46 PM
--- NOTE | 2021-12-27 14:11 | PM.PN ---
Subjective Subjective: Seen today right after cardiac catheterization procedure. He received 2 drug-eluting stents and balloon angioplasty. Final Report pending. Denies any chest pain at this time and appears to be doing okay. Family at bedside updated as well. Vitals/I&O/Wt Last Vital Signs Temp 97.4 F L 12/27/21 12:00 Pulse 56 L 12/27/21 12:00 Resp 18 12/27/21 12:00 BP 180/81 12/27/21 12:00 Pulse Ox 95 12/27/21 12:00 12/26/21 12/27/21 12/27/21 22:59 06:59 14:59 Intake Total 370 / 910 290 / 1200 50 / 50 Output Total 1350 / 1350 400 / 1750 Balance -980 / -440 -110 / -550 50 / 50 Weight last 48 hrs Weight 68.311 kg Weight 68.039 kg Physical Exam Narrative: General: Alert oriented x3, patient seen sitting up in bed appearing comfortable HEENT: Normocephalic, atraumatic, EOMI, breathing normally on room air no acute distress no conversational dyspnea. Cardio: Bradycardia normal S1-S2, Respiratory: Clear to auscultation bilaterally, no wheezes no rhonchi no crackles. GI: Abdomen soft, nontender, nondistended, bowel sounds + Behavior: Appropriate and cooperative Extremities: Trace edema bilateral lower extremities, no cyanosis Urinary Catheter Management: Nixon Latex Free: Cath Placed During This Visit: yes Reason for Continuing Indwelling Catheter: Acute Urinary Retention or Obstruction Urinary Catheter Date of Insertion: 12/25/21 Urinary Catheter Time of Insertion: 12:15 Data : 12/27/21 04:43 12/27/21 04:43 Micro: Microbiology 12/25/21 15:50 Gram Stain - Final Sputum - Expectorated Sputum Sputum Culture - Final Pseudomonas aeruginosa A&P Assessment and plan (1) Frequent falls: Status: Acute (2) Abnormal nuclear stress test: Status: Acute (3) Atherosclerosis of coronary artery of [place] heart without angina pectoris: Status: Acute (4) Pneumonia: Status: Acute (5) Syncope: Status: Acute (6) Bradycardia: Status: Acute (7) Leg edema: Status: Acute (8) Urolithiasis: Status: Acute (9) BPH loc w urin obs/LUTS: Status: Acute (10) Hypertension: Status: Acute Qualifiers: Hypertension type: essential hypertension Qualified Code(s): I10 - Essential (primary) hypertension (11) Coronary artery disease: Status: Acute Qualifiers: Coronary Disease-Associated Artery/Lesion type: [place] artery [place] vs. 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 #Syncopal episodes x2 #Fall at home, with another recent fall with bruising on chin #History of CVA #GERD #Hyperlipidemia #Hypertension #Bilateral carotid artery stenosis #CHELY on CKD, baseline 1.6-1.7 #Right lower lobe pneumonia ? Head CT did not show IC bleed. CTA neck reviewed. - CXR shows possible infiltrate right lower lobe. CT chest showed pneumonia. Sputum culture growing Pseudomonas. Continue on IV Zosyn for now. ? Monitor on telemetry ? Continue levothyroxine ? Echo complete - Carotid dopplers showed right ICA stenosis 70-99%. Progression since previous study. CTA recommended. - Cr high. In light of CHELY will hold of on CTA for now. -Continue on IV fluids. We will need to watch for CHELY, contrast-induced. ? Continue Plavix. ? EKG did not show ischemic changes.? Delta troponin negative ? Sliding scale insulin -Patient is status post PCI with ALLAN x2 and angioplasty for another vessel. ? Cardiology on board and following ? Monitor patient in hospital tonight and watch for CHELY closely. ? Continue gentle IV hydration ? Eventually after discharge patient will need follow-up with cardiothoracic surgery/vascular surgery for his carotid artery stenosis. ? We will discuss with cardiology the need for an event monitor at discharge Full code Attestations Medical Necessity Statement*: Status post PCI today. Will need to be in the hospital for treatment of pneumonia, CHELY. I expect 24 to 48-hour stay at this time. Coding Level of Care Code Acute Blast Furnace Checker for Chg Fwd Diagnoses Frequent falls R29.6 Abnormal nuclear stress test R94.39 Atherosclerosis of coronary artery of [place] heart without angina pectoris I25.10 Pneumonia J18.9 Syncope R55 Bradycardia R00.1 Leg edema R60.0 Urolithiasis N20.9 BPH loc w urin obs/LUTS N40.1 Hypertension I10 Hypertension type: essential hypertension Coronary artery disease I25.10 Coronary Disease-Associated Artery/Lesion type: [place] artery [place] vs. transplanted heart: [place] heart Associated angina: without angina Hyperlipidemia E78.2 Hyperlipidemia type: mixed hyperlipidemia Bilateral carotid artery stenosis I65.23 Neurodegenerative gait disorder R26.89 Sacroiliitis M46.1 Chronic migraine without aura, intractable, with status migrainosus G43.711
[2021-12-27] MEDS: sodium chloride 0.9% 1,000 ML 100 ML IV (16:48)
--- NOTE | 2021-12-27 19:35 | PC.NURSE ---
Right Wrist cath site dressing is dry and intact. surrounding skin is soft, no hematoma present. Patient denies any numbness or tinging, capillary refill good.
[2021-12-27] MEDS: atorvastatin 40 mg Tablet PO (21:22)
[2021-12-28] VITALS (13 sets, daily range): BP systolic 127–180; BP diastolic 70–101; PULSE 49–106; RESP 14–22; TEMP 36.5–38; O2SAT 93–98
[2021-12-28] MEDS: piperacillin-tazobactam 3.375 GM in sodium chloride 0.9% (plus) 50 ML IV ×3 (04:04→21:03)
[2021-12-28] MEDS: heparin 5,000 unit/mL INJ 1 mL 5000 UNIT SUBCUT ×2 (04:05→15:21)
[2021-12-28] MEDS: sodium chloride 0.9% 1,000 ML 75 ML IV (04:05)
--- NOTE | 2021-12-28 05:04 | PC.NURSE ---
Spoke with regarding patients elevated BP, ongoing, started on losartan 12/27. Patient has running iv fluids. Dr Mayers ordered stop the IV fluids.
[2021-12-28 05:09] LABS: Basophils % 0.5 %; Eosinophils # 0.3 10^3/uL (0.0-0.8); Eosinophils % 3.7 %; Hematocrit 34.9 % (42.0-52.0); Hemoglobin 11.6 g/dL (11.7-16.6); Lymphocytes # 1.1 10^3/uL (0.8-4.8); Lymphocytes % 14.1 %; Mean Corpuscular HGB Conc 33.2 g/dL (30.0-36.0); Mean Corpuscular Hemoglobin 30.4 pg (28.0-34.0); Mean Corpuscular Volume 91.6 fl (80-94); Mean Platelet Volume 9.3 fL (7.4-10.4); Monocytes # 0.6 10^3/uL (0.2-0.9); Monocytes % 7.6 %; Neutrophils # 5.54 10^3/uL (1.8-7.7); Neutrophils % 73.7 %; Nucleated Red Blood Cells % 0 %; Platelet Count 317 10^3/cmm (130-400); Red Blood Count 3.81 10^6/uL (4.1-5.3); Red Cell Distribution Width 13.3 % (12.1-15.1); White Blood Count 7.5 10^3/uL (4.0-10.0)
[2021-12-28 05:31] LABS: Blood Urea Nitrogen 23 mg/dL (8-23); Calcium 8.7 mg/dL (8.5-10.5); Carbon Dioxide 26 mmol/L (22-29); Chloride 102 mmol/L (98-107); Glucose 124 mg/dL (65-115); Magnesium 1.6 mg/dL (1.7-2.3); Osmolality Calculated 287 mOsm/kg (285-295); Sodium 136 mmol/L (136-145)
[2021-12-28] MEDS: levothyroxine 50 mcg Tablet PO (05:47)
[2021-12-28] MEDS: pantoprazole DR 40 mg Tablet PO (09:03)
[2021-12-28] MEDS: clopidogrel 75 mg Tablet PO (09:03)
[2021-12-28] MEDS: benzonatate 100 mg Capsule PO ×2 (09:04→21:02)
[2021-12-28] MEDS: aspirin 325 mg EC Tablet PO (09:04)
[2021-12-28] MEDS: losartan 50 mg Tablet PO (09:04)
--- NOTE | 2021-12-28 09:10 | PC.SOCIAL ---
IMM Updated Updated pt on IMM. No questions voiced. Provided pt a copy. Initialed, dated, & timed copy in chart.
--- NOTE | 2021-12-28 09:33 | PM.PN ---
Subjective Subjective: Patient is doing well. no chest pain. Vitals/I&O/Wt Last Vital Signs Temp 99.3 F 12/28/21 07:31 Pulse 63 12/28/21 07:42 Resp 16 12/28/21 07:42 BP 127/101 12/28/21 09:04 Pulse Ox 94 12/28/21 07:42 12/27/21 12/28/21 12/28/21 22:59 06:59 14:59 Intake Total 751.667 / 6925.711 1086.583 / 3061.250 200 / 200 Output Total 400 / 400 450 / 850 Balance 351.667 / 465.639 2496.583 / 2211.250 200 / 200 Weight last 48 hrs Weight 158 lb 9.6 oz Weight 150 lb 9.6 oz Physical Exam Narrative: GENERAL: Patient is alert, awake and oriented x3. [] NECK: No jugular vein distension. [] HEENT: No cyanosis. No icterus. No pallor. [] HEART: Regular S1 and S2. No murmur, rub or gallop. [] LUNGS: Has bilateral crackles ABDOMEN: Soft, nontender and nondistended. Positive bowel sounds. No guarding, rebound or tenderness. [] CENTRAL NERVOUS SYSTEM: Grossly nonfocal. [] EXTREMITIES: Lower extremities with 1+ edema bilaterally. Pulses palpable in the lower extremities, both dorsalis pedis and posterior tibial. [] Urinary Catheter Management: Nixon Latex Free: Cath Placed During This Visit: yes Reason for Continuing Indwelling Catheter: Acute Urinary Retention or Obstruction Urinary Catheter Date of Insertion: 12/25/21 Urinary Catheter Time of Insertion: 12:15 Data : 12/28/21 04:34 12/29/21 03:14 Micro: Microbiology 12/25/21 15:50 Gram Stain - Final Sputum - Expectorated Sputum Sputum Culture - Final Pseudomonas aeruginosa A&P Assessment and plan (1) Atherosclerosis of coronary artery of [place] heart without angina pectoris: Patient underwent coronary angiogram that showed severe stenosis of proximal to mid RCA, severe in-stent restenosis of PDA and severe stenosis of left circumflex to OM 2. LAD has PROPOSAL CONSULTANT. Underwent successful revascularization of RCA with DESX 1, LCx with DESX 1 and balloon angioplasty of the PDA lesion Continue aspirin and plavix Status: Acute (2) Abnormal nuclear stress test: Patient had PCI done to RCA, LCx and balloon angioplasty of PDA isr Status: Acute (3) Frequent falls: The etiology is not clear. Possibly CAD Status: Acute (4) Bradycardia: Patient is has a history of bradycardia. But has not had any symptomatic bradycardia documented in the recent past. Status: Acute (5) Hyperlipidemia: May continue on the current medications for the time being. Status: Acute Qualifiers: Hyperlipidemia type: mixed hyperlipidemia Qualified Code(s): E78.2 - Mixed hyperlipidemia (6) Bilateral carotid artery stenosis: Patient is a bilateral carotid artery stenosis also could be a contributing factor for his overall symptoms. This needs to be further evaluated with a CTA. Status: Acute (7) Pneumonia: Patient is remaining afebrile. He is on IV antibiotics. Status: Acute Plan Patient needs diuresis. Will keep for today and possible discharge tomorrow. Attestations Medical Necessity Statement*: Care expected to cross 2 midnights. Coding Level of Care Code Acute Electric Tool Repairer for [facility] Jesusd Diagnoses Atherosclerosis of coronary artery of [place] heart without angina pectoris I25.10 Abnormal nuclear stress test R94.39 Frequent falls R29.6 Bradycardia R00.1 Hyperlipidemia E78.2 Hyperlipidemia type: mixed hyperlipidemia Bilateral carotid artery stenosis I65.23 Pneumonia J18.9
[2021-12-28] MEDS: magnesium sulfate premix 2 GM/50 ML PIGGYBACK IV (10:17)
[2021-12-28] MEDS: FUROsemide 10 mg/mL SDV 4mL 40 MG IVP (10:48)
--- NOTE | 2021-12-28 14:18 | P.PN_ITS ---
Subjective Subjective: Seen this morning. Patient seen eating breakfast with spouse at bedside. He was also seen by physical therapy. Final report pending. Spoke to protection consultant as well. No acute events overnight. Vitals/I&O/Wt Last Vital Signs Temp 97.7 F 12/28/21 11:18 Pulse 106 H 12/28/21 11:18 Resp 22 H 12/28/21 11:18 BP 131/86 12/28/21 11:18 Pulse Ox 96 12/28/21 11:18 12/27/21 12/28/21 12/28/21 22:59 06:59 14:59 Intake Total 751.667 / 5830.845 6930.583 / 3061.250 352 / 352 Output Total 400 / 400 450 / 850 Balance 351.667 / 541.411 1962.583 / 2211.250 352 / 352 Weight last 48 hrs Weight 71.94 kg Weight 68.311 kg Physical Exam Narrative: General: Alert oriented x3, patient seen sitting up in bed appearing comfortable HEENT: Normocephalic, atraumatic, EOMI, breathing normally on room air no acute distress no conversational dyspnea. Cardio: Regular rate rhythm, normal S1-S2, Respiratory: Bilateral bibasilar crackles present GI: Abdomen soft, nontender, nondistended, bowel sounds + Behavior: Appropriate and cooperative Extremities: Trace edema bilateral lower extremities, no cyanosis Nixon in place draining clear urine. Urinary Catheter Management: Nixon Latex Free: Cath Placed During This Visit: yes Reason for Continuing Indwelling Catheter: Acute Urinary Retention or Obstruction Urinary Catheter Date of Insertion: 12/25/21 Urinary Catheter Time of Insertion: 12:15 Data : 12/28/21 04:34 12/28/21 04:34 Micro: Microbiology 12/25/21 15:50 Gram Stain - Final Sputum - Expectorated Sputum Sputum Culture - Final Pseudomonas aeruginosa A&P Assessment and plan (1) Frequent falls: Status: Acute (2) Abnormal nuclear stress test: Status: Acute (3) Atherosclerosis of coronary artery of [place] heart without angina pectoris: Status: Acute (4) Pneumonia: Status: Acute (5) Syncope: Status: Acute (6) Bradycardia: Status: Acute (7) Leg edema: Status: Acute (8) Urolithiasis: Status: Acute (9) BPH loc w urin obs/LUTS: Status: Acute (10) Hypertension: Status: Acute Qualifiers: Hypertension type: essential hypertension Qualified Code(s): I10 - Essential (primary) hypertension (11) Coronary artery disease: Status: Acute Qualifiers: Coronary Disease-Associated Artery/Lesion type: [place] artery [place] vs. transplanted heart: [place] heart Associated angina: without angina Qualified Code(s): I25.10 - Atherosclerotic heart disease of [place] coronary artery without angina pectoris (12) Hyperlipidemia: Status: Acute Qualifiers: Hyperlipidemia type: mixed hyperlipidemia Qualified Code(s): E78.2 - Mixed hyperlipidemia (13) Bilateral carotid artery stenosis: Status: Acute (14) Neurodegenerative gait disorder: Status: Acute (15) Sacroiliitis: Status: Acute (16) Chronic migraine without aura, intractable, with status migrainosus: Status: Acute Plan #CAD status post PCI status post restenosis, status post PCI in the past and new lesions again underwent PCI. #Syncopal episodes x2 #Fall at home, with another recent fall with bruising on chin #History of CVA #GERD #Hyperlipidemia #Hypertension #Bilateral carotid artery stenosis #CHELY on CKD, baseline 1.6-1.7 #Right lower lobe pneumonia ? Head CT did not show IC bleed. CTA neck reviewed. - CXR shows possible infiltrate right lower lobe. CT chest showed pneumonia.? Sputum culture growing Pseudomonas.? Continue on IV Zosyn for now. ? Monitor on telemetry ? Continue levothyroxine ? Echo complete - Carotid dopplers showed right ICA stenosis 70-99%. Progression since previous study. CTA recommended. - Cr high. In light of CHELY will hold of on CTA for now. -Continue on IV fluids.? We will need to watch for CHELY, contrast-induced. ? Continue Plavix. ? EKG did not show ischemic changes.? Delta troponin negative ? Sliding scale insulin -Patient is status post PCI with ALLAN x2 and angioplasty for another vessel. ? Cardiology on board and following ? Monitor patient in hospital tonight and watch for CHELY closely. ? Stop IV fluids. ? Eventually after discharge patient will need follow-up with cardiothoracic surgery/vascular surgery for his carotid artery stenosis. ? We will discuss with cardiology the need for an event monitor at discharge ? Diuresed with Lasix 40 IV today. Physical therapy consult pending Cardiac rehab recommended. Full code Attestations Medical Necessity Statement*: Fluid overloaded today. Will need IV diuresis and stay in the hospital tonight. We will reassess how patient does tomorrow and decide further course of action. Coding Level of Care Code Acute Inside Sales Person for Chg Fwd Diagnoses Frequent falls R29.6 Abnormal nuclear stress test R94.39 Atherosclerosis of coronary artery of [place] heart without angina pectoris I25.10 Pneumonia J18.9 Syncope R55 Bradycardia R00.1 Leg edema R60.0 Urolithiasis N20.9 BPH loc w urin obs/LUTS N40.1 Hypertension I10 Hypertension type: essential hypertension Coronary artery disease I25.10 Coronary Disease-Associated Artery/Lesion type: [place] artery [place] vs. transplanted heart: [place] heart Associated angina: without angina Hyperlipidemia E78.2 Hyperlipidemia type: mixed hyperlipidemia Bilateral carotid artery stenosis I65.23 Neurodegenerative gait disorder R26.89 Sacroiliitis M46.1 Chronic migraine without aura, intractable, with status migrainosus G43.711
[2021-12-28] MEDS: atorvastatin 40 mg Tablet PO (21:02)
[2021-12-29] VITALS (14 sets, daily range): BP systolic 135–184; BP diastolic 70–101; PULSE 45–89; RESP 16–25; TEMP 36.2–36.9; O2SAT 93–97
[2021-12-29] MEDS: heparin 5,000 unit/mL INJ 1 mL 5000 UNIT SUBCUT ×2 (03:09→16:19)
[2021-12-29] MEDS: benzonatate 100 mg Capsule PO (03:17)
[2021-12-29] MEDS: piperacillin-tazobactam 3.375 GM in sodium chloride 0.9% (plus) 50 ML IV ×3 (03:22→21:52)
[2021-12-29 05:03] LABS: Blood Urea Nitrogen 21 mg/dL (8-23); Calcium 8.5 mg/dL (8.5-10.5); Carbon Dioxide 27 mmol/L (22-29); Chloride 98 mmol/L (98-107); Glucose 118 mg/dL (65-115); Magnesium 2.1 mg/dL (1.7-2.3); Osmolality Calculated 286 mOsm/kg (285-295); Sodium 136 mmol/L (136-145)
[2021-12-29] MEDS: levothyroxine 50 mcg Tablet PO (05:11)
--- NOTE | 2021-12-29 08:21 | PM.PN ---
Subjective Subjective: Patient is doing well. Has more cough today. No chest pain Vitals/I&O/Wt Last Vital Signs Temp 97.7 F 12/29/21 07:43 Pulse 52 L 12/29/21 07:43 Resp 19 H 12/29/21 07:43 BP 184/101 12/29/21 07:43 Pulse Ox 97 12/29/21 07:43 12/28/21 12/29/21 12/29/21 22:59 06:59 14:59 Intake Total 410 / 762 950 / 1712 Output Total 1800 / 1800 400 / 2200 Balance -1390 / -1038 550 / -488 Weight last 48 hrs Weight 151 lb Weight 158 lb 9.6 oz Physical Exam Narrative: GENERAL: Patient is alert, awake and oriented x3. [] NECK: No jugular vein distension. [] HEENT: No cyanosis. No icterus. No pallor. [] HEART: Regular S1 and S2. No murmur, rub or gallop. [] LUNGS: Lungs are clear ABDOMEN: Soft, nontender and nondistended. Positive bowel sounds. No guarding, rebound or tenderness. [] CENTRAL NERVOUS SYSTEM: Grossly nonfocal. [] EXTREMITIES: Lower extremities with 1+ edema bilaterally. Pulses palpable in the lower extremities, both dorsalis pedis and posterior tibial. [] Urinary Catheter Management: Nixon Latex Free: Cath Placed During This Visit: yes Reason for Continuing Indwelling Catheter: Acute Urinary Retention or Obstruction Urinary Catheter Date of Insertion: 12/25/21 Urinary Catheter Time of Insertion: 12:15 Data : 12/30/21 04:15 12/30/21 04:15 Micro: Microbiology 12/23/21 16:28 Blood Culture - Final Blood NO GROWTH AFTER 5 DAYS 12/23/21 16:00 Blood Culture - Final Blood NO GROWTH AFTER 5 DAYS A&P Assessment and plan (1) Atherosclerosis of coronary artery of [place] heart without angina pectoris: Patient underwent coronary angiogram that showed severe stenosis of proximal to mid RCA, severe in-stent restenosis of PDA and severe stenosis of left circumflex to OM 2. 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 Underwent successful revascularization of RCA with DESX 1, LCx with DESX 1 and balloon angioplasty of the PDA lesion Continue aspirin and plavix He is stable from cardiology standpoint. Patient's renal function is stable. He had febrile episodes and more cough today and medicine team decided to watch for another day Status: Acute (2) Abnormal nuclear stress test: Patient had PCI done to RCA, LCx and balloon angioplasty of PDA isr Status: Acute (3) Frequent falls: The etiology is not clear. Possibly CAD Status: Acute (4) Bradycardia: Patient has a history of bradycardia. But has not had any symptomatic bradycardia documented in the recent past. Status: Acute (5) Hyperlipidemia: May continue on the current medications for the time being. Status: Acute Qualifiers: Hyperlipidemia type: mixed hyperlipidemia Qualified Code(s): E78.2 - Mixed hyperlipidemia (6) Bilateral carotid artery stenosis: Patient is a bilateral carotid artery stenosis also could be a contributing factor for his overall symptoms. This needs to be further evaluated with a CTA. Status: Acute (7) Pneumonia: Patient is remaining afebrile. He is on IV antibiotics. Status: Acute Plan Disposition per medicine team. Stable from cardiology standpoint Attestations Medical Necessity Statement*: Care expected to cross 2 midnights. Coding Level of Care Code Acute Windows Server Specialist for Rah Carter Diagnoses Atherosclerosis of coronary artery of [place] heart without angina pectoris I25.10 Abnormal nuclear stress test R94.39 Frequent falls R29.6 Bradycardia R00.1 Hyperlipidemia E78.2 Hyperlipidemia type: mixed hyperlipidemia Bilateral carotid artery stenosis I65.23 Pneumonia J18.9
[2021-12-29] MEDS: pantoprazole DR 40 mg Tablet PO (08:44)
[2021-12-29] MEDS: aspirin 81 mg EC Tablet PO (08:44)
[2021-12-29] MEDS: clopidogrel 75 mg Tablet PO (08:44)
[2021-12-29] MEDS: losartan 50 mg Tablet PO (08:44)
[2021-12-29] MEDS: albuterol 8 gm MDI 2 PUFF INHALATION ×3 (09:15→20:18)
[2021-12-29] MEDS: guaiFENesin-dextromethorphan UDC 10 mL 5 ML PO ×2 (09:39→16:28)
[2021-12-29] MEDS: levofloxacin-dextrose 5 % 750 MG/150 ML PREMIX 100 MG IV (09:40)
--- NOTE | 2021-12-29 13:40 | PM.PN ---
Subjective Subjective: Seen today. Pt spiked fever overnight. COughing alot more than before Vitals/I&O/Wt Last Vital Signs Temp 97.5 F L 12/29/21 12:00 Pulse 66 12/29/21 12:00 Resp 25 H 12/29/21 12:00 BP 135/79 12/29/21 12:00 Pulse Ox 94 12/29/21 12:00 12/28/21 12/29/21 12/29/21 22:59 06:59 14:59 Intake Total 410 / 762 950 / 1712 360 / 360 Output Total 1800 / 1800 400 / 2200 Balance -1390 / -1038 550 / -488 360 / 360 Weight last 48 hrs Weight 68.492 kg Weight 71.94 kg Physical Exam Narrative: General: Alert oriented x3, patient seen sitting up in bed appearing comfortable HEENT: Normocephalic, atraumatic, EOMI, breathing normally on room air no acute distress no conversational dyspnea. Cardio: Regular rate rhythm, normal S1-S2, Respiratory: Bilateral bibasilar crackles present, improved compared to yesterday GI: Abdomen soft, nontender, nondistended, bowel sounds + Behavior: Appropriate and cooperative Extremities: Trace edema bilateral lower extremities, no cyanosis Nixon in place draining clear urine. Urinary Catheter Management: Nixon Latex Free: Cath Placed During This Visit: yes Reason for Continuing Indwelling Catheter: Acute Urinary Retention or Obstruction Urinary Catheter Date of Insertion: 12/25/21 Urinary Catheter Time of Insertion: 12:15 Data : 12/28/21 04:34 12/29/21 03:14 Micro: Microbiology 12/23/21 16:28 Blood Culture - Final Blood NO GROWTH AFTER 5 DAYS 12/23/21 16:00 Blood Culture - Final Blood NO GROWTH AFTER 5 DAYS A&P Assessment and plan (1) Frequent falls: Status: Acute (2) Abnormal nuclear stress test: Status: Acute (3) Atherosclerosis of coronary artery of [place] heart without angina pectoris: Status: Acute (4) Pneumonia: Status: Acute (5) Syncope: Status: Acute (6) Bradycardia: Status: Acute (7) Leg edema: Status: Acute (8) Urolithiasis: Status: Acute (9) BPH loc w urin obs/LUTS: Status: Acute (10) Hypertension: Status: Acute Qualifiers: Hypertension type: essential hypertension Qualified Code(s): I10 - Essential (primary) hypertension (11) Coronary artery disease: Status: Acute Qualifiers: Coronary Disease-Associated Artery/Lesion type: [place] artery [place] vs. transplanted heart: [place] heart Associated angina: without angina Qualified Code(s): I25.10 - Atherosclerotic heart disease of [place] coronary artery without angina pectoris (12) Hyperlipidemia: Status: Acute Qualifiers: Hyperlipidemia type: mixed hyperlipidemia Qualified Code(s): E78.2 - Mixed hyperlipidemia (13) Bilateral carotid artery stenosis: Status: Acute (14) Neurodegenerative gait disorder: Status: Acute (15) Sacroiliitis: Status: Acute (16) Chronic migraine without aura, intractable, with status migrainosus: Status: Acute Plan #CAD status post PCI status post restenosis, status post PCI in the past and new lesions again underwent PCI. #Syncopal episodes x2 #Fall at home, with another recent fall with bruising on chin #History of CVA #GERD #Hyperlipidemia #Hypertension #Bilateral carotid artery stenosis #CHELY on CKD, baseline 1.6-1.7 #Right lower lobe pneumonia ? Head CT did not show IC bleed. CTA neck reviewed. - CXR shows possible infiltrate right lower lobe. CT chest showed pneumonia.??Sputum culture growing Pseudomonas.? COntinue zosyn and levaquin. - Add robitussin for cough, continue benzonatate ? Monitor on telemetry ? Continue levothyroxine ? Echo complete - Carotid dopplers showed right ICA stenosis 70-99%. Progression since previous study. CTA recommended. - Cr high. In light of CHELY will hold of on CTA for now. -Continue on IV fluids.? We will need to watch for CHELY, contrast-induced. ? Continue Plavix. ? EKG did not show ischemic changes.? Delta troponin negative ? Sliding scale insulin -Patient is status post PCI with ALLAN x2 and angioplasty for another vessel. ? Cardiology on board and following ? Eventually after discharge patient will need follow-up with cardiothoracic surgery/vascular surgery for his carotid artery stenosis. ? We will discuss with cardiology the need for an event monitor at discharge - COntinue to monitor in hospital today. Repeat XRAY Will go home with home health Cardiac rehab recommended. Full code Attestations Medical Necessity Statement*: Had fever. Will need to stay tonight. ABX coverage escalated. Coding Level of Care Code Acute Terminologist for Chg Fwd Diagnoses Frequent falls R29.6 Abnormal nuclear stress test R94.39 Atherosclerosis of coronary artery of [place] heart without angina pectoris I25.10 Pneumonia J18.9 Syncope R55 Bradycardia R00.1 Leg edema R60.0 Urolithiasis N20.9 BPH loc w urin obs/LUTS N40.1 Hypertension I10 Hypertension type: essential hypertension Coronary artery disease I25.10 Coronary Disease-Associated Artery/Lesion type: [place] artery [place] vs. transplanted heart: [place] heart Associated angina: without angina Hyperlipidemia E78.2 Hyperlipidemia type: mixed hyperlipidemia Bilateral carotid artery stenosis I65.23 Neurodegenerative gait disorder R26.89 Sacroiliitis M46.1 Chronic migraine without aura, intractable, with status migrainosus G43.711
[2021-12-29] MEDS: FUROsemide 10 mg/mL SDV 4mL 40 MG IVP (14:16)
[2021-12-29] MEDS: atorvastatin 40 mg Tablet PO (21:51)
[2021-12-30] VITALS (15 sets, daily range): BP systolic 144–184; BP diastolic 78–92; PULSE 53–81; RESP 16–30; TEMP 36.4–36.9; O2SAT 92–96
[2021-12-30] MEDS: temazepam 15 mg Capsule PO (00:39)
[2021-12-30 04:26] LABS: Basophils % 0.7 %; Eosinophils # 0.2 10^3/uL (0.0-0.8); Eosinophils % 4.4 %; Hematocrit 38.7 % (42.0-52.0); Hemoglobin 12.9 g/dL (11.7-16.6); Lymphocytes # 1.1 10^3/uL (0.8-4.8); Lymphocytes % 20.1 %; Mean Corpuscular HGB Conc 33.3 g/dL (30.0-36.0); Mean Corpuscular Hemoglobin 30.7 pg (28.0-34.0); Mean Corpuscular Volume 92.1 fl (80-94); Mean Platelet Volume 9.2 fL (7.4-10.4); Monocytes # 0.7 10^3/uL (0.2-0.9); Neutrophils # 3.39 10^3/uL (1.8-7.7); Neutrophils % 61.5 %; Nucleated Red Blood Cells % 0 %; Platelet Count 351 10^3/cmm (130-400); Red Cell Distribution Width 13.2 % (12.1-15.1); White Blood Count 5.5 10^3/uL (4.0-10.0)
[2021-12-30 04:46] LABS: Anion Gap 13.2 (5-19); Blood Urea Nitrogen 27 mg/dL (8-23); Calcium 9.2 mg/dL (8.5-10.5); Carbon Dioxide 29 mmol/L (22-29); Chloride 96 mmol/L (98-107); Glucose 116 mg/dL (65-115); Osmolality Calculated 284 mOsm/kg (285-295); Potassium 4.2 mmol/L (3.5-5.1); Sodium 134 mmol/L (136-145)
[2021-12-30] MEDS: heparin 5,000 unit/mL INJ 1 mL 5000 UNIT SUBCUT ×2 (06:04→18:00)
[2021-12-30] MEDS: piperacillin-tazobactam 3.375 GM in sodium chloride 0.9% (plus) 50 ML IV ×3 (06:07→21:45)
[2021-12-30] MEDS: levothyroxine 50 mcg Tablet PO (06:07)
[2021-12-30] MEDS: albuterol 8 gm MDI 2 PUFF INHALATION (08:05)
[2021-12-30] MEDS: aspirin 81 mg EC Tablet PO (09:14)
[2021-12-30] MEDS: clopidogrel 75 mg Tablet PO (09:14)
[2021-12-30] MEDS: pantoprazole DR 40 mg Tablet PO (09:14)
[2021-12-30] MEDS: losartan 50 mg Tablet PO (09:14)
--- NOTE | 2021-12-30 12:47 | US_ITS ---
WS: [id number] RENAL ULTRASOUND HISTORY: charles, h/o urolithiasis COMPARISON: 07/11/2016 TECHNIQUE: 2-D and color Doppler imaging of the kidney submitted. Right kidney: 9.3 cm x 4.9 cm x 5.7 cm. Low normal size kidney with marked increased echogenicity. No mass or hydronephrosis is evident. Prev iously described RIGHT renal cyst is not identified on today's exam. Left kidney: 9.0 cm x 4.0 cm x 3.8 cm. Low normal renal size. Increased echogenicity. No mass or hydronephrosis. Aorta: Mild ectasia and atherosclerosis aorta. Maximum diameter is 2.6 cm. Urinary Bladder: Normal distention. US/US renal BI* [id number] IMPRESSION: 1. No renal obstruction or solid mass identified. 2. Moderate medical renal disease. 3. Ectatic abdominal aorta. Maximum diameter 2.6 cm.
--- NOTE | 2021-12-30 12:48 | PC.SOCIAL ---
IMM Updated Updated pt on IMM. No questions voiced. Provided pt a copy. Initialed, dated, & timed copy in chart.
[2021-12-30 13:44] LABS: Iron 67 ug/dL (59-158); Percent Saturation 35.4 % (20-50); Thyroid Stimulating Hormone 9.44 uIU/mL (0.27-4.20); Total Iron Binding Capacity 189 mcg/dl; Unsaturated Iron Binding 122 ug/dL (112-347)
[2021-12-30] MEDS: sodium chloride 0.9% 1,000 ML 50 ML IV (15:41)
--- NOTE | 2021-12-30 16:01 | PM.PN ---
Subjective Subjective: Hospital course, labs appreciated. Patient sitting up in bed today. Family at bedside. Denies any nausea vomiting, headache. Asking when can he go home. Currently on room air. Has remained hemodynamically stable and afebrile. Vitals/I&O/Wt Last Vital Signs Temp 97.6 F 12/30/21 15:47 Pulse 81 12/30/21 15:47 Resp 30 H 12/30/21 15:47 BP 144/81 12/30/21 15:47 Pulse Ox 92 12/30/21 15:47 12/30/21 12/30/21 12/30/21 06:59 14:59 22:59 Intake Total 100 / 710 560 / 560 Output Total 950 / 2150 400 / 400 Balance -850 / -1440 160 / 160 Weight last 48 hrs Weight 68.492 kg Weight 68.492 kg Physical Exam Narrative: General: Alert oriented x3, patient seen sitting up in bed appearing comfortable HEENT: Normocephalic, atraumatic, EOMI, breathing normally on room air no acute distress no conversational dyspnea. Cardio: Regular rate rhythm, normal S1-S2, Respiratory: Bilateral bibasilar crackles present, improved compared to yesterday GI: Abdomen soft, nontender, nondistended, bowel sounds + Behavior: Appropriate and cooperative Extremities: Trace edema bilateral lower extremities, no cyanosis Nixon in place draining clear urine. Urinary Catheter Management: Nixon Latex Free: Cath Placed During This Visit: yes Reason for Continuing Indwelling Catheter: Acute Urinary Retention or Obstruction Urinary Catheter Date of Insertion: 12/25/21 Urinary Catheter Time of Insertion: 12:15 Data : 12/30/21 04:15 12/30/21 04:15 A&P Assessment and plan (1) Acute kidney injury: Status: Acute (2) Atherosclerosis of coronary artery of [place] heart without angina pectoris: Status: Acute (3) Bradycardia: Status: Acute (4) Frequent falls: Status: Acute (5) Syncope: Status: Acute (6) Abnormal nuclear stress test: Status: Acute (7) Carotid artery stenosis: Status: Acute (8) Pneumonia: Status: Acute (9) Leg edema: Status: Acute (10) Urolithiasis: Status: Acute (11) BPH loc w urin obs/LUTS: Status: Acute (12) Hypertension: Status: Acute Qualifiers: Hypertension type: essential hypertension Qualified Code(s): I10 - Essential (primary) hypertension Plan Syncope secondary to bradycardia: Hemodynamically stable now. Orthostatic negative. Carotid artery stenosis on carotid Dopplers. CTA could not be done because of acute kidney injury. Positive stress test: Found to have severe stenosis of proximal to mid RCA, severe in-stent restenosis of PDA, severe stenosis of LCx to OM. Post PCI with 2 ALLAN to RCA, LCx and balloon angioplasty of PDA. 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 Chest pain-free currently. Continue with aspirin, Plavix, statin. Beta-orion not given given bradycardia on admission. Heart rate better now. Can plan to reintroduce low-dose beta-orion 12.5 mg twice daily. Echocardiogram. Acute kidney injury on CKD: Most likely secondary to bradycardia in setting of contrast induced nephropathy. Stop Lasix. EF normal on echocardiogram. Start with gentle IV hydration with normal saline 50 cc/h for 1 bag. Monitor BMP daily for now. Analgesia: Tylenol as needed Glycemic control: Insulin sliding scale low-dose protocol Nutrition: Cardiac carb consistent diet CODE STATUS: Full code PUD prophylaxis: Protonix DVT prophylaxis: Heparin 5000 every 12 hourly Discharge planning: Discharge home with home health within next 24 hours if kidney function remains stable. PT evaluation appreciated. Continue with care at [facility] care Attestations Medical Necessity Statement*: Requires further hospitalization for management of acute kidney injury on CKD in setting of post PCI Time Spent in Patient Care: Greater than 35 minutes Coding Level of Care Code Acute Cartographic Engineer for Chg Fwd Diagnoses Frequent falls R29.6 Abnormal nuclear stress test R94.39 Atherosclerosis of coronary artery of [place] heart without angina pectoris I25.10 Pneumonia J18.9 Syncope R55 Bradycardia R00.1 Leg edema R60.0 Urolithiasis N20.9 BPH loc w urin obs/LUTS N40.1 Hypertension I10 Hypertension type: essential hypertension Acute kidney injury N17.9 Carotid artery stenosis I65.29
[2021-12-30 16:36] LABS: Free T4 Free Thyroxine 1.23 ng/dL (0.82-1.77); T3 Free 1.9 PG/ML (2.0-4.4)
[2021-12-30] MEDS: amlodipine 5 mg Tablet PO (17:59)
[2021-12-30] MEDS: ferrous gluconate 324 mg Tablet PO (17:59)
--- NOTE | 2021-12-30 19:16 | P.PN_ITS ---
Subjective Subjective: The events of the weekend were noted. Apparently the patient had low-grade fever. Last night he had diarrhea. Denies any chest pain. No unusual shortness of breath. His vital signs are fairly stable except for the blood pressure which is a stage II. Medications: Medication Review Details: Current Medications Acetaminophen (Acetaminophen 325 Mg Tablet) 650 mg PO Q6H PRN PRN Reason: MILD PAIN Last Admin: 12/27/21 10:14 Dose: 650 mg Documented by: Al Hydrox/Mg Hydrox/Simethicone (Nmih-Ife-Jxymcahqd-Rosie 30 Ml Udc) 30 ml PO Q15M PRN PRN Reason: INDIGESTION Albuterol Sulfate (Albuterol 8 Gm Mdi) 2 puff INHALATION Q6H PRN PRN Reason: shortness of breath or wheezing Last Admin: 12/30/21 08:05 Dose: 2 puff Documented by: Amlodipine Besylate (Amlodipine 5 Mg Tablet) 5 mg PO DAILY [facility] Last Admin: 12/30/21 17:59 Dose: 5 mg Documented by: Aspirin (Aspirin 81 Mg Ec Tablet) 81 mg PO DAILY [facility] Last Admin: 12/30/21 09:14 Dose: 81 mg Documented by: Atorvastatin Calcium (Atorvastatin 40 Mg Tablet) 40 mg PO BEDTIME [facility] Last Admin: 12/29/21 21:51 Dose: 40 mg Documented by: Benzonatate (Benzonatate 100 Mg Capsule) 100 mg PO TID PRN PRN Reason: COUGH Last Admin: 12/29/21 03:17 Dose: 100 mg Documented by: Clopidogrel Bisulfate (Clopidogrel 75 Mg Tablet) 75 mg PO DAILY [facility] Last Admin: 12/30/21 09:14 Dose: 75 mg Documented by: Ferrous Gluconate (Ferrous Gluconate 324 Mg Tablet) 324 mg PO BIDWM [facility] Last Admin: 12/30/21 17:59 Dose: 324 mg Documented by: Guaifenesin/Dextromethorphan (Guaifenesin-Dextromethorphan Udc 10 Ml) 5 ml PO Q4H PRN PRN Reason: COUGH Last Admin: 12/29/21 16:28 Dose: 5 ml Documented by: Heparin Sodium (Porcine) (Heparin 5,000 Unit/Ml Inj 1 Ml) 5,000 unit SUBCUT Q12H [facility] Last Admin: 12/30/21 18:00 Dose: 5,000 unit Documented by: Piperacillin Sod/Tazobactam (Sod 3.375 gm/ Sodium Chloride) 50 mls @ 12.5 mls/hr IV Q8H [facility] Stop: 12/31/21 12:29 Last Admin: 12/30/21 14:52 Dose: 12.5 mls/hr Documented by: Sodium Chloride (Sodium Chloride 0.9%) 1,000 mls @ 50 mls/hr IV .Q20H [facility] Stop: 12/31/21 08:59 Last Admin: 12/30/21 15:41 Dose: 50 mls/hr Documented by: Levothyroxine Sodium (Levothyroxine 50 Mcg Tablet) 50 mcg PO QAM [facility] Last Admin: 12/30/21 06:07 Dose: 50 mcg Documented by: Losartan Potassium (Losartan 50 Mg Tablet) 50 mg PO DAILY [facility] Last Admin: 12/30/21 09:14 Dose: 50 mg Documented by: Magnesium Hydroxide (Magnesium Hydroxide 30 Ml Udc) 30 ml PO DAILY PRN PRN Reason: CONSTIPATION Naloxone HCl (Naloxone 0.4 Mg/Ml Sdv) 0.1 mg IVP Q2M PRN PRN Reason: RESPIRATORY RATE < 8/MIN Nitroglycerin (Nitroglycerin 0.4 Mg Sublingual Tablet) 0.4 mg SUBLINGUAL Q5M PRN PRN Reason: CHEST PAIN Pantoprazole Sodium (Pantoprazole Dr 40 Mg Tablet) 40 mg PO DAILY [facility] Last Admin: 12/30/21 09:14 Dose: 40 mg Documented by: Temazepam (Temazepam 15 Mg Capsule) 15 mg PO BEDTIME PRN PRN Reason: INSOMNIA Last Admin: 12/30/21 00:39 Dose: 15 mg Documented by: Vitals/I&O/Wt Last Vital Signs Temp 97.6 F 12/30/21 16:00 Pulse 81 12/30/21 16:00 Resp 30 H 12/30/21 16:00 BP 144/81 12/30/21 16:00 Pulse Ox 92 12/30/21 16:00 12/30/21 12/30/21 12/30/21 06:59 14:59 22:59 Intake Total 100 / 710 560 / 560 240 / 800 Output Total 950 / 2150 400 / 400 Balance -850 / -1440 160 / 160 240 / 400 Weight last 48 hrs Weight 151 lb Weight 151 lb Physical Exam Narrative: GENERAL: The patient is alert and oriented times three. Not in any acute distress. HEENT: No significant pallor, icterus or lymphadenopathy.Oral cavity: There are no mucous membrane lesions. NECK: Trachea appears to be central. No masses noted. No JVD or thyromegaly appreciated. RESPIRATORY: Chest is symmetrical. No intercostals muscle retraction or any accessory muscle activation. There is no chest wall tenderness. Breath sounds ar e heard bilaterally. No rales or rhonchi heard. No evidence of any consolidation. BREASTS: Deferred. HEART: The heart sounds are normal. No S3 or S4. No pericardial rub ABDOMEN: No vessel pulsations or distention. No tenderness. No organomegaly appreciated. Bowel sounds are normally heard. : Deferred. RECTAL: Deferred. LYMPHATIC: No lymphadenopathy noted in the neck. EXTREMITIES: No edema or cyanosis. No clubbing. MUSCULOSKELETAL: No acute joint deformities or swelling SKIN: There are no significant rashes or ecchymosis NEUROPSYCHIATRIC: The patient is alert and oriented x3. Appears to be in a good mood. No tremors or rigidity noted. Urinary Catheter Management: Nixon Latex Free: Cath Placed During This Visit: yes Reason for Continuing Indwelling Catheter: Acute Urinary Retention or Obstruc tion Urinary Catheter Date of Insertion: 12/25/21 Urinary Catheter Time of Insertion: 12:15 Data : 12/30/21 04:15 12/30/21 04:15 Other Labs: Laboratory Last Values WBC 5.5 10^3/uL (4.0-10.0) 12/30/21 04:15 RBC 4.20 10^6/uL (4.1-5.3) 12/30/21 04:15 Hgb 12.9 g/dL (11.7-16.6) 12/30/21 04:15 Hct 38.7 % (42.0-52.0) L 12/30/21 04:15 MCV 92.1 fl (80-94) 12/30/21 04:15 MCH 30.7 pg (28.0-34.0) 12/30/21 04:15 MCHC 33.3 g/dL (30.0-36.0) 12/30/21 04:15 RDW 13.2 % (12.1-15.1) 12/30/21 04:15 Plt Count 351 10^3/cmm (130-400) 12/30/21 04:15 MPV 9.2 fL (7.4-10.4) 12/30/21 04:15 Neut % (Auto) 61.5 % 12/30/21 04:15 Lymph % (Auto) 20.1 % 12/30/21 04:15 [place] % (Auto) 12.0 % 12/30/21 04:15 Eos % (Auto) 4.4 % 12/30/21 04:15 Baso % (Auto) 0.7 % 12/30/21 04:15 Neut # (Auto) 3.39 10^3/uL (1.8-7.7) 12/30/21 04:15 Lymph # (Auto) 1.1 10^3/uL (0.8-4.8) 12/30/21 04:15 [place] # (Auto) 0.7 10^3/uL (0.2-0.9) 12/30/21 04:15 Eos # (Auto) 0.2 10^3/uL (0.0-0.8) 12/30/21 04:15 Baso # (Auto) 0.0 10^3/uL (0.0-0.1) 12/30/21 04:15 Nucleated RBC % (auto) 0 % 12/30/21 04:15 Nucleated RBCs # 0.0 /100WBC 12/30/21 04:15 Sodium 134 mmol/L (136-145) L 12/30/21 04:15 Potassium 4.2 mmol/L (3.5-5.1) 12/30/21 04:15 Chloride 96 mmol/L (98-107) L 12/30/21 04:15 Carbon Dioxide 29 mmol/L (22-29) 12/30/21 04:15 Anion Gap 13.2 (5-19) 12/30/21 04:15 BUN 27 mg/dL (8-23) H 12/30/21 04:15 Creatinine 1.7 mg/dL (0.7-1.2) H 12/30/21 04:15 GFR Calculation Not Reportable 12/30/21 04:15 Glucose 116 mg/dL (65-115) H 12/30/21 04:15 Calculated Osmolality 284 mOsm/kg (285-295) L 12/30/21 04:15 Lactic Acid 2.2 mmol/L (0.5-2.2) 12/23/21 11:30 Lactic Acid (Sepsis) 0.6 mmol/L (0.5-2.2) 12/23/21 22:14 Calcium 9.2 mg/dL (8.5-10.5) 12/30/21 04:15 Magnesium 2.1 mg/dL (1.7-2.3) 12/29/21 03:14 Iron 67 ug/dL (59-158) 12/30/21 04:15 TIBC 189 mcg/dl 12/30/21 04:15 % Saturation 35.4 % (20-50) 12/30/21 04:15 Unsat Iron Binding 122 ug/dL (112-347) 12/30/21 04:15 Total Bilirubin 0.4 mg/dL (0.15-1.2) 12/24/21 02:34 AST 22 U/L (0-40) 12/24/21 02:34 ALT 22 U/L (0-41) 12/24/21 02:34 Alkaline Phosphatase 96 IU/L (40-130) 12/24/21 02:34 Troponin T Baseline 33 ng/L (0-15) H 12/23/21 16:00 Troponin T 120 Minute 32.28 ng/L (0-15) H 12/23/21 18:25 Delta Troponin T -0.72 ABS# (0-10) L 12/23/21 18:25 Troponin T Hi Sens 6Hr 30.22 ng/L (0-15) H 12/23/21 22:14 Troponin T Hi Sens 6Hr Delta -2.78 ng/L (0-12) L 12/23/21 22:14 NT-Pro-B Natriuret Pep 1341 pg/mL (0-450) H 12/23/21 11:30 Total Protein 6.1 g/dL (6.6-8.7) L D 12/24/21 02:34 Albumin 2.5 g/dL (3.5-5.2) L 12/24/21 02:34 Globulin 3.6 g/dL (1.3-4.6) 12/24/21 02:34 TSH 9.44 uIU/mL (0.27-4.20) H 12/30/21 04:15 Free T4 1.23 ng/dL (0.82-1.77) 12/30/21 04:15 Free T3 1.9 PG/ML (2.0-4.4) L 12/30/21 04:15 Urine Color Yellow (Yellow) 12/25/21 12:15 Urine Appearance Clear (CLEAR) 12/25/21 12:15 Urine pH 5 (5-7) 12/25/21 12:15 Ur Specific [place] 1.020 (1.005-1.030) 12/25/21 12:15 Urine Protein Neg (Negative) 12/25/21 12:15 Urine Glucose (UA) 1+ (Normal) H 12/25/21 12:15 Urine Ketones Negative (Negative) 12/25/21 12:15 Urine Blood Neg (Negative) 12/25/21 12:15 Urine Nitrate Negative (Negative) 12/25/21 12:15 Urine Bilirubin Neg (Negative) 12/25/21 12:15 Prot Sulfosalicylic Acd Negative (Negative) 12/25/21 12:15 Urine Urobilinogen Norm mg/dL (Negative) 12/25/21 12:15 Ur Leukocyte Esterase Negative (Negative) 12/25/21 12:15 Urine RBC None /hpf (0-2) 12/25/21 12:15 Urine WBC None /hpf (0-5) 12/25/21 12:15 Ur Squamous Epith Cells 0-4 /hpf (0-5) H 12/25/21 12:15 Amorphous Sediment Not Reportable 12/25/21 12:15 Urine Bacteria None /hpf (NONE) 12/25/21 12:15 A&P Assessment and plan (1) Atherosclerosis of coronary artery of [place] heart without angina pectoris: Patient status post PCI, previous seems to be stable Status: Acute (2) Frequent falls: The etiology is not clear. The patient's heart rate has improved since the PCI. Coronary ischemia could have been a contributinglfactor for the bradycardia and hypotension Status: Acute (3) Bradycardia: Currently resolved. As mentioned above Status: Acute (4) Hyperlipidemia: May continue on the current medications for the time being. Status: Acute Qualifiers: Hyperlipidemia type: mixed hyperlipidemia Qualified Code(s): E78.2 - Mixed hyperlipidemia (5) Bilateral carotid artery stenosis: Patient is a bilateral carotid artery stenosis also could be a contributing factor for his overall symptoms. This needs to be further evaluated with a CTA. Status: Acute (6) Pneumonia: Patient is remaining afebrile. He is on IV antibiotics. Status: Acute Plan Diarrhea-etiology? 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
--- NOTE | 2021-12-30 19:35 | PC.NURSE ---
reported several loose stools to provider instructions received to obtain stool for c diff if negative give Loperamide
[2021-12-30] MEDS: atorvastatin 40 mg Tablet PO (21:45)
[2021-12-31 03:11] LABS: Estmated Average Glucose 146; Hemoglobin A1C 6.7 % (4.0-6.0)
[2021-12-31 03:13] LABS: Alanine Aminotransferase 35 U/L (0-41); Albumin Level 2.9 g/dL (3.5-5.2); Alkaline Phosphatase 121 IU/L (40-130); Anion Gap 13.6 (5-19); Aspartate Amino Transferase 32 U/L (0-40); Blood Urea Nitrogen 25 mg/dL (8-23); Carbon Dioxide 25 mmol/L (22-29); Chloride 101 mmol/L (98-107); Chol HDL Ratio 4.91 mg/dL (1.0-5.00); Cholesterol 157 mg/dL (0-200); Globulin 3.8 g/dL (1.3-4.6); Glucose 124 mg/dL (65-115); HDL Cholesterol 32 mg/dL (60-100); LDL Cholesterol Calculated 97 mg/dL (50-129); Osmolality Calculated 286 mOsm/kg (285-295); Potassium 4.6 mmol/L (3.5-5.1); Sodium 135 mmol/L (136-145); Total Bilirubin 0.2 mg/dL (0.15-1.2); Total Protein 6.7 g/dL (6.6-8.7); Triglycerides 139 mg/dL (0-150); VLDL Cholestrol Calculation 28 mg/dL (0-30)
[2021-12-31 04:00] VITALS: BP 185/84; PULSE 71; RESP 16; TEMP 36.6; O2SAT 91
[2021-12-31] MEDS: heparin 5,000 unit/mL INJ 1 mL 5000 UNIT SUBCUT (05:08)
[2021-12-31] MEDS: piperacillin-tazobactam 3.375 GM in sodium chloride 0.9% (plus) 50 ML IV (05:08)
[2021-12-31] MEDS: levothyroxine 50 mcg Tablet PO (05:08)
[2021-12-31 06:00] VITALS: PULSE 58
[2021-12-31 08:00] VITALS: PULSE 73; RESP 18; O2SAT 97
[2021-12-31 08:07] VITALS: BP 192/102; PULSE 73; RESP 21; TEMP 36.8; O2SAT 96
[2021-12-31] MEDS: losartan 50 mg Tablet 75 MG PO (08:07)
[2021-12-31] MEDS: amlodipine 5 mg Tablet 10 MG PO (08:08)
[2021-12-31] MEDS: clopidogrel 75 mg Tablet PO (08:08)
[2021-12-31] MEDS: aspirin 81 mg EC Tablet PO (08:09)
[2021-12-31] MEDS: pantoprazole DR 40 mg Tablet PO (08:09)
[2021-12-31] MEDS: ferrous gluconate 324 mg Tablet PO (08:09)
[2021-12-31] MEDS: albuterol 8 gm MDI 2 PUFF INHALATION (08:40)
--- NOTE | 2021-12-31 10:59 | P.DS_ITS ---
Discharge Providers Date of Admission: 12/23/21 14:59 Date of Discharge: December 31, 2021 Attending Provider at Admission: Mitali Hilton MD Attending Provider at Discharge: Luisito Blanton MD Consults: Cardiology: Dr. Melton Primary Care Provider: Tam Farah DO Diagnoses at Discharge Discharge Diagnosis (1) Atherosclerosis of coronary artery of [place] without angina pectoris: Status: Acute (2) Frequent falls: Status: Acute (3) Bradycardia: Status: Acute (4) Hyperlipidemia: Status: Acute Qualifiers: Hyperlipidemia type: mixed hyperlipidemia Qualified Code(s): E78.2 - Mixed hyperlipidemia (5) Bilateral carotid artery stenosis: Status: Acute (6) Pneumonia: Status: Acute Reason for Visit Reason for Visit: weakness/lethargic/confusion/dizziness Hospital Course Hospital Course Des Fuller is a 86 year old male with past medical history of bilateral carotid artery stenosis, hypertension, CAD post PCI, in-stent restenosis with repeat PCI, hyperlipidemia, history of CVA who was admitted to the hospital through the emergency room, where he presented with complaints of difficulty in navigation and generalized weakness. e was found to have relatively low blood pressure and heart rate.? Myocardial infarction was ruled out.? He was found to have right lower lobe pneumonia.? He had a Myocardial perfusion imaging today which was found to be abnormal. This patient is a poor historian.? He apparently has been having episodes where he finds himself difficult to navigate because of the feeling of heaviness in his lower extremities associated some numbness.? He gets unsteady and then falls.? He had a fall 2 weeks ago sustaining? contusion of his head and neck region and laceration of the chin.? According to the patient and his significant other he never had any syncopal episode.? He knew when he is going to fall.? Apparently he could not control himself. On the day of hospital admission, he was coming out of a restaurant.? He was trying to get into the car.? Apparently he had this feeling of both legs becoming heavy and numb.? So somebody had to carry him to the car.? He did not have any seizure activity.? No bladder or bowel incontinence.? No associated chest pain or palpitations. As per his significant other, the overall functional status has been slowly deteriorating.? He was having a cough and shortness of breath for the last 1 week or so.? No hemoptysis. Patient went to the hospital for further evaluation and management of syncope/fall at home, right-sided pneumonia and bradycardia on admission. For right-sided pneumonia he was started on broad-spectrum antibiotics. Sputum culture came back positive for Pseudomonas. Antibiotic course was tailored as per culture sensitivities. Patient has finished a course of 6 to 7 days of antibiotics. For syncope it was believed was secondary to bradycardia. Further evaluation was done with echocardiogram and Lexiscan stress test. Echocardiogram showed an EF of 66%, trace TR. Lexiscan stress test revealed moderate area of moderate to severe decreased tracer uptake in inferior and apical region with significant reversibility suggesting of ischemia of all 3 coronary arteries. Cardiology was consulted and he underwent cardiac angiogram on 12/27 that showed severe stenosis of proximal to mid RCA, severe in-stent restenosis of PDA and severe stenosis of left circumflex to OM 2.? 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 Underwent successful revascularization of RCA with DESX 1, LCx with DESX 1 and balloon angioplasty of the PDA lesion. Hospitalization was further complicated by him having uncontrolled hypertension for which multiple his antihypertensives were adjusted. Safe discharge planning was discussed in detail with the patient. Patient was seen by physical therapy. He was advised to be discharged to SNF but patient was adamant on going home. Home health has been arranged. He has been discharged in hemodynamically stable condition with advised to follow-up with cardiology service nurse practitioner within next 1 week, Dr. Melton in next 1 month and with his primary care provider within next 2 weeks. He is to check his blood pressure daily and maintain a blood pressure diary. Physical Exam Narrative: General: Alert oriented x3, patient seen sitting up in bed appearing comfortable HEENT: Normocephalic, atraumatic, EOMI, breathing normally on room air no acute distress no conversational dyspnea. Cardio: Regular rate rhythm, normal S1-S2, Respiratory: Bilateral bibasilar crackles present, improved compared to yesterday GI: Abdomen soft, nontender, nondistended, bowel sounds + Behavior: Appropriate and cooperative Extremities: Trace edema bilateral lower extremities, no cyanosis Nixon in place draining clear urine. Urinary Catheter Management: Nixon Latex Free: Cath Placed During This Visit: yes Reason for Continuing Indwelling Catheter: Acute Urinary Retention or Obstruction Urinary Catheter Date of Insertion: 12/25/21 Urinary Catheter Time of Insertion: 12:15 Discharge Data Studies Completed and Pending Completed Studies During Hospitalization Category Date Time Status CT chest wo con [id number] Urgent Cat Scan 12/23/21 15:[address] head wo con* [id number] Stat Cat Scan 12/23/21 11:[address] neck wo con [id number] Urgent Cat Scan 12/23/21 15:05 Completed Sestamibi Stress Test Request Routine Exams 12/24/21 16:31 Completed XR chest 1V portable [id number] Stat Exams 12/23/21 14:34 Completed NM jass perf SPECT r/s* [id number] Routine Nuc Med 12/25/21 16:33 Completed CV carotid duplex BI* [id number] Urgent Ultrasound 12/23/21 14:59 Completed CV. echo complete* [id number] Routine Ultrasound 12/23/21 14:59 Completed US renal BI* [id number] Routine Ultrasound 12/30/21 12:47 Completed Pending at discharge Category Date Time Status ADMINISTRATIVE SALES ASSISTANT request for service Routine Exams 12/27/21 12:00 Taken MRSA by PCR Routine Lab 12/30/21 19:37 Received Radiology Impressions Head CT 12/23/21 11:35 IMPRESSION: 1. No evidence of intracranial hemorrhage or mass effect. 2. Moderate small vessel changes. Moderate parenchymal volume loss. 3. Tiny chronic lacunar infarct RIGHT caudate and RIGHT moore radiata. 4. Intracranial vascular calcification. 5. No significant changes since December 09, 2021. Chest X-Ray 12/23/21 14:34 IMPRESSION: 1. Findings suspicious for infiltrate in the right lower lobe. A detailed PA and lateral chest would be helpful for more detailed evaluation if thought to be clinically warranted. Chest CT 12/23/21 15:04 IMPRESSION: 1. Patchy airspace infiltrate in RIGHT lower lobe posteriorly with subtotal consolidation is new from December 16, 2021 consistent with pneumonia. 2. Slight atelectasis LEFT lower lobe. 3. Moderate chronic emphysematous changes. 4. No other significant changes compared to previous Neck CT 12/23/21 15:05 IMPRESSION: Some images moderately degraded by patient motion and swallowing artifact. 1. Supraglottic and glottic airway appear patent. Subglottic airway appears patent. 2. Air distended upper thoracic esophagus. 3. No evidence of neck mass or fluid collection. No cervical lymphadenopathy. 4. No other significant findings considering motion artifact. Renal Ultrasound 12/30/21 12:47 IMPRESSION: 1. No renal obstruction or solid mass identified. 2. Moderate medical renal disease. 3. Ectatic abdominal aorta. Maximum diameter 2.6 cm. Echocardiogram: CONCLUSIONS ?Normal left ventricular size and systolic function, EF 66 %. No?regional wall motion abnormalities. ?Thickened aortic valve. Trace aortic valve regurgitation. ?Trace tricuspid valve regurgitation.? Estimated pulmonary artery?peak systolic pressure within normal limits. ?Normal cardiac chamber sizes. ?No obvious intracardiac masses. ?No pericardial effusion. ?Compared to the study from 12/13/2018, there may not be a?significant change Lexiscan stress test: IMPRESSIONS ?1.? Myocardial perfusion imaging revealing moderate area of moderate to?severely decreased tracer uptake in the inferior and apical regions with a?significant reversibility, suggesting ischemia in the distribution of all the 3?coronary arteries. ?2.? Normal LV ejection fraction of 75% ?3.? Segmental wall motion analysis revealing no gross wall motion?abnormalities. ?4.? Normal LV volume. ?No similar previous studies are available for comparison Laboratory Results WBC 5.5 10^3/uL (4.0-10.0) 12/30/21 04:15 RBC 4.20 10^6/uL (4.1-5.3) 12/30/21 04:15 Hgb 12.9 g/dL (11.7-16.6) 12/30/21 04:15 Hct 38.7 % (42.0-52.0) L 12/30/21 04:15 MCV 92.1 fl (80-94) 12/30/21 04:15 MCH 30.7 pg (28.0-34.0) 12/30/21 04:15 MCHC 33.3 g/dL (30.0-36.0) 12/30/21 04:15 RDW 13.2 % (12.1-15.1) 12/30/21 04:15 Plt Count 351 10^3/cmm (130-400) 12/30/21 04:15 MPV 9.2 fL (7.4-10.4) 12/30/21 04:15 Neut % (Auto) 61.5 % 12/30/21 04:15 Lymph % (Auto) 20.1 % 12/30/21 04:15 Barry % (Auto) 12.0 % 12/30/21 04:15 Eos % (Auto) 4.4 % 12/30/21 04:15 Baso % (Auto) 0.7 % 12/30/21 04:15 Neut # (Auto) 3.39 10^3/uL (1.8-7.7) 12/30/21 04:15 Lymph # (Auto) 1.1 10^3/uL (0.8-4.8) 12/30/21 04:15 Barry # (Auto) 0.7 10^3/uL (0.2-0.9) 12/30/21 04:15 Eos # (Auto) 0.2 10^3/uL (0.0-0.8) 12/30/21 04:15 Baso # (Auto) 0.0 10^3/uL (0.0-0.1) 12/30/21 04:15 Nucleated RBC % (auto) 0 % 12/30/21 04:15 Nucleated RBCs # 0.0 /100WBC 12/30/21 04:15 Sodium 135 mmol/L (136-145) L 12/31/21 02:30 Potassium 4.6 mmol/L (3.5-5.1) 12/31/21 02:30 Chloride 101 mmol/L (98-107) 12/31/21 02:30 Carbon Dioxide 25 mmol/L (22-29) 12/31/21 02:30 Anion Gap 13.6 (5-19) 12/31/21 02:30 BUN 25 mg/dL (8-23) H 12/31/21 02:30 Creatinine 1.6 mg/dL (0.7-1.2) H 12/31/21 02:30 GFR Calculation Not Reportable 12/31/21 02:30 Glucose 124 mg/dL (65-115) H 12/31/21 02:30 Estimat Average Glucose 146 12/31/21 02:30 Hemoglobin A1c 6.7 % (4.0-6.0) H 12/31/21 02:30 Calculated Osmolality 286 mOsm/kg (285-295) 12/31/21 02:30 Lactic Acid 2.2 mmol/L (0.5-2.2) 12/23/21 11:30 Lactic Acid (Sepsis) 0.6 mmol/L (0.5-2.2) 12/23/21 22:14 Calcium 9.0 mg/dL (8.5-10.5) 12/31/21 02:30 Magnesium 2.1 mg/dL (1.7-2.3) 12/29/21 03:14 Iron 67 ug/dL (59-158) 12/30/21 04:15 TIBC 189 mcg/dl 12/30/21 04:15 % Saturation 35.4 % (20-50) 12/30/21 04:15 Unsat Iron Binding 122 ug/dL (112-347) 12/30/21 04:15 Total Bilirubin 0.2 mg/dL (0.15-1.2) 12/31/21 02:30 AST 32 U/L (0-40) 12/31/21 02:30 ALT 35 U/L (0-41) 12/31/21 02:30 Alkaline Phosphatase 121 IU/L (40-130) 12/31/21 02:30 Troponin T Baseline 33 ng/L (0-15) H 12/23/21 16:00 Troponin T 120 Minute 32.28 ng/L (0-15) H 12/23/21 18:25 Delta Troponin T -0.72 ABS# (0-10) L 12/23/21 18:25 Troponin T Hi Sens 6Hr 30.22 ng/L (0-15) H 12/23/21 22:14 Troponin T Hi Sens 6Hr Delta -2.78 ng/L (0-12) L 12/23/21 22:14 NT-Pro-B Natriuret Pep 1341 pg/mL (0-450) H 12/23/21 11:30 Total Protein 6.7 g/dL (6.6-8.7) 12/31/21 02:30 Albumin 2.9 g/dL (3.5-5.2) L 12/31/21 02:30 Globulin 3.8 g/dL (1.3-4.6) 12/31/21 02:30 Triglycerides 139 mg/dL (0-150) 12/31/21 02:30 Triglycerides Cancelled 12/31/21 02:30 Cholesterol 157 mg/dL (0-200) 12/31/21 02:30 Cholesterol Cancelled 12/31/21 02:30 LDL Cholesterol, Calc 97 mg/dL (50-129) 12/31/21 02:30 LDL Cholesterol, Calc Cancelled 12/31/21 02:30 Total VLDL Cholesterol 28 mg/dL (0-30) 12/31/21 02:30 Total VLDL Cholesterol Cancelled 12/31/21 02:30 HDL Cholesterol 32 mg/dL (60-100) L 12/31/21 02:30 HDL Cholesterol Cancelled 12/31/21 02:30 Cholesterol/HDL Ratio 4.91 mg/dL (1.0-5.00) 12/31/21 02:30 Cholesterol/HDL Ratio Cancelled 12/31/21 02:30 TSH 9.44 uIU/mL (0.27-4.20) H 12/30/21 04:15 Free T4 1.23 ng/dL (0.82-1.77) 12/30/21 04:15 Free T3 1.9 PG/ML (2.0-4.4) L 12/30/21 04:15 Urine Color Yellow (Yellow) 12/25/21 12:15 Urine Appearance Clear (CLEAR) 12/25/21 12:15 Urine pH 5 (5-7) 12/25/21 12:15 Ur Specific Todd 1.020 (1.005-1.030) 12/25/21 12:15 Urine Protein Neg (Negative) 12/25/21 12:15 Urine Glucose (UA) 1+ (Normal) H 12/25/21 12:15 Urine Ketones Negative (Negative) 12/25/21 12:15 Urine Blood Neg (Negative) 12/25/21 12:15 Urine Nitrate Negative (Negative) 12/25/21 12:15 Urine Bilirubin Neg (Negative) 12/25/21 12:15 Prot Sulfosalicylic Acd Negative (Negative) 12/25/21 12:15 Urine Urobilinogen Norm mg/dL (Negative) 12/25/21 12:15 Ur Leukocyte Esterase Negative (Negative) 12/25/21 12:15 Urine RBC None /hpf (0-2) 12/25/21 12:15 Urine WBC None /hpf (0-5) 12/25/21 12:15 Ur Squamous Epith Cells 0-4 /hpf (0-5) H 12/25/21 12:15 Amorphous Sediment Not Reportable 12/25/21 12:15 Urine Bacteria None /hpf (NONE) 12/25/21 12:15 Vitals Last Vital Signs Temp 98.3 F 12/31/21 08:07 Pulse 73 12/31/21 08:07 Resp 21 H 12/31/21 08:07 BP 192/102 12/31/21 08:07 Pulse Ox 96 12/31/21 08:07 Discharge Plan Discharge Patient Disposition: Home Condition: Stable Prescriptions: New atorvastatin 40 mg Tablet 40 mg PO BEDTIME Qty: 30 0RF loperamide 2 mg Capsule 2 mg PO QID PRN (Reason: Diarrhea) Qty: 10 0RF amlodipine 5 mg Tablet 10 mg PO DAILY 30 Days Qty: 60 0RF aspirin 81 mg Tablet,Delayed Release (Dr/Ec) 81 mg PO DAILY Qty: 30 0RF ferrous gluconate 324 mg (37.5 mg iron) Tablet 324 mg PO BIDWM Qty: 30 0RF Continued clopidogrel 75 mg tablet 75 mg PO BEDTIME 0RF levothyroxine 50 mcg tablet 50 mcg PO QAM 0RF pantoprazole 40 mg tablet,delayed release (DR/EC) 40 mg PO DAILY 0RF levocetirizine 5 mg tablet 5 mg PO DAILY PRN (Reason: Allergy Symptoms) 0RF red yeast rice 600 mg Tablet 600 mg PO DAILY 0RF Fish Oil 1 cap PO DAILY 0RF promethazine-DM 6.25-15 mg/5 mL Syrup 5 ml PO Q6H PRN (Reason: Cough) 0RF acetaminophen 500 mg Tablet 1,000 mg PO Q4H PRN (Reason: Pain) 0RF Nitrostat 0.4 mg Tablet, Sublingual 0.4 mg SUBLINGUAL Q5M PRN (Reason: Chest Pain) 0RF Rx Instructions: do not exceed 3 doses per episode metformin 500 mg tablet extended release 24 hr 500 mg PO BID 0RF CoQ-10 100 mg Capsule 100 mg PO DAILY 0RF tamsulosin 0.4 mg capsule 0.4 mg PO BID 0RF albuterol sulfate 90 mcg/actuation HFA aerosol inhaler 2 puff INHALATION Q6H PRN (Reason: shortness of breath or wheezing) 0RF Changed losartan 50 mg tablet 75 mg PO DAILY Qty: 0 0RF Discontinued prednisone 50 mg tablet 50 mg PO DAILY Qty: 5 0RF naproxen 250 mg Tablet 250 - 500 mg PO Q12H PRN (Reason: Pain) 0RF cephalexin [Keflex] 500 mg Capsule 500 mg PO Q8H 0RF Rx Instructions: for 10 days (rx filled 12/10/21) carvedilol 25 mg tablet 25 mg PO BID 0RF hydrochlorothiazide 12.5 mg capsule 12.5 mg PO QAM 0RF Discharge Orders: Discharge Order (Routine); Ordered 12/31/21 Ordered By: Luisito Blanton Other Ambulatory Orders: DME: Walker (Order) Location: None Selected Ordered By: Mitali Hilton Referrals: [facility] ([facility]) [Outside] ([facility] will call you at home & will follow up with you at home on Thursday. ) Tree Melton MD [Physician] - 02/12/22 9:45 am Marcus Machado MD [Physician] - 01/09/22 1:15 pm Pamela Trimble FNP [Nurse Practitioner] - 01/09/22 3:00 pm Tam Farah DO [Primary Care Provider] - 01/01/22 8:30 am Discharge Diet: Cardiac Discharge Activity: Resume usual activity and Increase activity as tolerated Patient Instructions: Loperamide (By mouth), Aspirin (By mouth), Amlodipine (By mouth), Chest Pain Stoplight, Opioid Safety Activity Restrictions/Additional Instructions: Please check your blood pressure daily at home and maintain a blood pressure diary and follow-up with your primary provider and Pamela Trimble/cardiology nurse practitioner within next 2 weeks for further adjustment of antihypertensives. Losartan dose has been increased to 75 mg daily. Do not take carvedilol and hydrochlorothiazide anymore. Instead take amlodipine 10 mg daily. Take aspirin and Plavix daily for next 1 month. Discharge Attestations 2 Time Spent in Discharge Care*: greater than 30 min Specific Discharge Activities: educating patient, educating and/or supporting family/caregiver, discussing with pcp/other providers, discussing with disability case manager/social workers/dc planners, documenting/other paperwork and evaluating patient/reviewing data Status at Discharge: Cognitive status at discharge: cognitively intact , Behavioral status at discharge: cooperative , Functional status at discharge: independent ambulation , Overall status at discharge: patient is back to baseline Quality Metrics Clinical Quality Measures [ No reported AMI, CVA or VTE this stay] Coding Level of Care Code Acute Chg FW DC note Diagnoses Atherosclerosis of coronary artery of [place] without angina pectoris I25.10 Frequent falls R29.6 Bradycardia R00.1 Hyperlipidemia E78.2 Hyperlipidemia type: mixed hyperlipidemia Bilateral carotid artery stenosis I65.23 Pneumonia J18.9
[2021-12-31 11:59] VITALS: BP 172/107; PULSE 83; RESP 21; TEMP 36.7; O2SAT 94
--- NOTE | 2021-12-31 13:44 | PC.NURSE ---
discharge written, prescriptions sent to pharmacy. pivx2 taken out, discharge instructions discussed with patient and significant other. reviewed all followup appointments, and medications. patient waited for over an hour for walker to be delivered. they did not want to wait any longer and said they would arrange to mushroom picker the walker. pt left via wheelchair to private vehicle. all questions addressed.
== END 2021-12-31 13:44 | disposition home health service (06) | DRG 246 ==
LOC: ER 14:29 → ICU 15:45 → MEDSURG 12-26 17:26
PROVIDERS: Internal Medicine; Internal Medicine Cardiovascular Disease; Admitting Provider Internal Medicine; Emergency Provider Family Medicine; PCP Internal Medicine; Visit Provider Student in an Organized Health Care Education/Training Program
DX: T82.855A Stenosis of coronary artery stent, initial encounter (principal); J18.9 Pneumonia, unspecified organism; N13.8 Other obstructive and reflux uropathy; N17.9 Acute kidney failure, unspecified; Y71.8 Miscellaneous cardiovascular devices associated with adverse incidents, not elsewhere classified; I65.23 Occlusion and stenosis of bilateral carotid arteries; N40.1 Benign prostatic hyperplasia with lower urinary tract symptoms; I25.10 Atherosclerotic heart disease of native coronary artery without angina pectoris; Z95.5 Presence of coronary angioplasty implant and graft; Z86.73 Personal history of transient ischemic attack (TIA), and cerebral infarction without residual deficits; K21.9 Gastro-esophageal reflux disease without esophagitis; E78.2 Mixed hyperlipidemia; I12.9 Hypertensive chronic kidney disease with stage 1 through stage 4 chronic kidney disease, or unspecified chronic kidney disease; N18.9 Chronic kidney disease, unspecified; M19.90 Unspecified osteoarthritis, unspecified site; R29.6 Repeated falls; R00.1 Bradycardia, unspecified; Z79.51 Long term (current) use of inhaled steroids; Z79.02 Long term (current) use of antithrombotics/antiplatelets; B96.5 Pseudomonas (aeruginosa) (mallei) (pseudomallei) as the cause of diseases classified elsewhere; I25.2 Old myocardial infarction; I95.9 Hypotension, unspecified; R26.89 Other abnormalities of gait and mobility
CPT/HCPCS: 36415; 51702; 70450; 70490; 71045; 71250; 76770; 78452; 80048; 80053; 80061; 81001; 83036; 83540; 83550; 83605; 83735; 83880; 84439; 84443; 84481; 84484; 85025; 85347; 87040; 87070; 87077; 87186; 87205; 87493; 87641; 93005; 93017; 93306; 93452; 93458; 93880; 94640; 94664; 96360; 96361; 96365; 96372; 97110; 97161; 97530; 99152; 99153; 99285; A9500; C1725; C1769; C1874; C1887; C1894; C9600; C9601; J0456; J0696; J1644; J1940; J1956; J2250; J2543; J2785; J3010; J3475; J3490; J3535; J7030; J7050; Q9967

== ENCOUNTER → 2022-01-09 12:45 | Outpatient (BNVA) | payer MEDICARE, OTHER, SELFPAY | PROVIDERS: PCP Internal Medicine; Visit Provider Thoracic Surgery (Cardiothoracic Vascular Surgery) | DX: I65.23 Occlusion and stenosis of bilateral carotid arteries (principal); I25.10 Atherosclerotic heart disease of native coronary artery without angina pectoris; I10 Essential (primary) hypertension; Z95.5 Presence of coronary angioplasty implant and graft | CPT/HCPCS: 36415; 80048; 99203; 99214 ==

== ENCOUNTER 2022-01-21 13:22 | Outpatient (CLI) | payer MEDICARE, OTHER, SELFPAY ==
--- NOTE | 2022-01-21 | CT_ITS ---
WS: [id number] CTA NECK TECHNIQUE: Contrast enhanced CTA of the neck with coronal and sagittal reformatted images and maximum intensity projection (MIP) images. NASCET criteria utilized. CLINICAL INFORMATION: carotid stenosis COMPARISON: CTA 2018 and ultrasound December 2021 DLP: 269.[address] scans at [facility] use at least one of these dose optimization techniques: automated e xposure control; mA and/or kV adjustment per patient size (includes targeted exams where dose is matc hed to clinical indication); or iterative reconstruction. FINDINGS: RIGHT: RIGHT common carotid artery is patent. Moderate calcified atheromatous disease RIGHT proximal ICA with short segment RIGHT proximal stenosis measuring approximately 75-80%. RIGHT ICA is patent to the skull base. This is progressed compared to 2019. LEFT: LEFT common carotid artery is patent. Calcified atheromatous plaque LEFT carotid bulb extending into the ICA with stenosis measuring approximately 41%. LEFT ICA is patent to the skull base. Both vertebral arteries are patent. Mild calcification vertebral artery origins. Vertebral arteries a re patent to the vertebrobasilar junction. Proximal basilar artery is patent. Both ICAs are patent at the skull base. Moderate cavernous carotid calcification. Mastoid air cells and paranasal sinuses we ll aerated. Lung apices are well aerated. Straightening of the normal cervical lordosis. Slight anter olisthesis C4 on C5. CT/CT angio neck [id number] IMPRESSION: 1. Short segment RIGHT proximal ICA stenosis at the origin measures greater th an 70% best seen on the coronal reformatted images. This is progressed compared to 2019. This measures approximately 75-80%. 2. LEFT ICA stenosis 41%. 3. Codominant and patent vertebral arteries bilaterally.
[2022-01-21] MEDS: iohexol 350 mg/mL 100 mL Btl IV (14:13)
== END 2022-01-21 13:23 | disposition home or self-care (01) ==
PROVIDERS: PCP Internal Medicine; Visit Provider Thoracic Surgery (Cardiothoracic Vascular Surgery)
DX: I65.23 Occlusion and stenosis of bilateral carotid arteries (principal)
CPT/HCPCS: 70498

== ENCOUNTER → 2022-02-13 14:37 | Outpatient (BNVA) | payer MEDICARE, OTHER, SELFPAY | PROVIDERS: PCP Internal Medicine; Visit Provider Thoracic Surgery (Cardiothoracic Vascular Surgery) | DX: I65.21 Occlusion and stenosis of right carotid artery (principal); I10 Essential (primary) hypertension | CPT/HCPCS: 99213 ==

== ENCOUNTER → 2022-02-19 11:24 | Outpatient (BNVA) | payer MEDICARE, OTHER, SELFPAY | PROVIDERS: PCP Internal Medicine; Visit Provider Internal Medicine Cardiovascular Disease | DX: I25.10 Atherosclerotic heart disease of native coronary artery without angina pectoris (principal); I10 Essential (primary) hypertension; E78.2 Mixed hyperlipidemia; I65.21 Occlusion and stenosis of right carotid artery; Z86.73 Personal history of transient ischemic attack (TIA), and cerebral infarction without residual deficits | CPT/HCPCS: 99214 ==

== ENCOUNTER 2022-04-06 17:05 | Emergency (ER) | payer MEDICARE, OTHER, SELFPAY ==
[2022-04-06 17:15] VITALS: BP 187/51; PULSE 74; RESP 16; TEMP 36.3; O2SAT 97; BMI 22.1
--- NOTE | 2022-04-06 17:54 | XRR_ITS ---
PROCEDURE INFORMATION: Exam: XR Chest Exam date and time: 04/06/2022 6:16 PM Age: 87 years old Clinical indication: Other: AMS TECHNIQUE: Imaging protocol: Radiologic exam of the chest. Views: 1 view. COMPARISON: CT chest [facility] [id number] 12/23/2021 3:35 PM FINDINGS: Tubes, catheters and devices: EKG monitoring leads overlie the thoracic wall. Lungs: There are confluent opacities at the right lung base. Pleural spaces: No pleural effusion or pneumothorax. Heart/Mediastinum: Multiple bilateral calcified hilar and mediastinal lymph nodes noted, unchanged from the comparison study. Bones/joints: No acute fracture is identified. XR/XR chest 1V portable [id number] IMPRESSION: Confluent opacities at the right lung base that may represent atelectasis or in the appropriate clinical setting, pneumonia. CT scan of the chest may be helpful for further characterization if clinically indicated.
--- NOTE | 2022-04-06 17:54 | CTR_ITS ---
PROCEDURE INFORMATION: Exam: CT Head Without Contrast Exam date and time: 04/06/2022 6:25 PM Age: 87 years old Clinical indication: Altered mental status/memory loss; Additional info: AMS TECHNIQUE: Imaging protocol: Computed tomography of the head without contrast. Radiation optimization: All CT scans at this facility use at least one of these dose optimization techniques: automated exposure control; mA and/or kV adjustment per patient size (includes targeted exams where dose is matched to clinical indication); or iterative reconstruction. COMPARISON: CT head wo con* [id number] 12/23/2021 11:59 AM RADIATION DOSE METRICS: Total DLP (mGy-cm): 1098.08 FINDINGS: Brain: There is no evidence of intracranial hemorrhage. No mass effect or midline shift. Minimal microischemic changes of white matter. Very small remote bilateral basal ganglia lacunar infarct versus prominent perivascular spaces. Cerebral ventricles: There is moderate volume loss and commensurate ventricular dilatation, consistent with the patient's age. Paranasal sinuses: There are no air-fluid levels. Mastoid air cells: The visualized mastoid air cells are well aerated. Bones/joints: No acute fracture. Soft tissues: Unremarkable. Vasculature: There is atheromatous calcification of bilateral intracranial internal carotid arteries. CT/CT head wo con* [id number] IMPRESSION: 1. No acute intracranial findings. 2. Age-appropriate involutional changes of the brain. 3. Very small remote bilateral white matter lacunar infarcts versus prominent perivascular spaces.
--- NOTE | 2022-04-06 17:55 | ECG_ITS ---
[facility] Test Date: 2022-04-06 Pat Name: Des Fuller Department: Room: Gender: Male Staff Electrical Engineer: : [id number] Requested By: Corin Ledesma Order Number: [id number] Mar MD: Gómez Garcia M.D. Measurements Intervals [place] Rate: 66 P: 55 CA: 162 QRS: 56 QRSD: 88 T: 66 QT: 397 QTc: 418 Interpretive Statements SINUS RHYTHM Compared to ECG 12/23/2021 17:03:13 Sinus bradycardia no longer present Electronically Signed On 04-06-2022 21:59:09 CDT by Gómez Garcia M.D. [email or web address]
--- NOTE | 2022-04-06 17:56 | ED_ITS ---
HPI - Altered Mental Status General: Chief Complaint: Altered Mental Status Stated Complaint: Confused Time Seen by Provider: 04/06/22 17:47 Source: patient Mode of arrival: ambulatory Limitations: no limitations History of Present Illness: 87-year-old male who brought in by a friend states that she did eat breakfast and this morning was normal she talked him on the phone roughly 3045 minutes ago any seem confused he was using his phone as a remote control she went over states he had some slight confusion that since resolved he is here he has no complaints currently he is able answer all my questions appropriately. Associated symptoms: Deny depression Review of Systems Const: Denies: fever(s), chills, body aches or change in appetite Eyes: Denies: blurry vision or eye discomfort ENMT: Denies: throat pain or dental pain Card: Denies: chest pain Resp: Denies: dyspnea GI: Denies: abdominal pain, nausea, vomiting or diarrhea : Denies: dysuria Musc: Denies: neck pain or back pain Skin/Breast: Denies: rash Neuro: Reports: confusion Psych: Denies: depression Ronaldo/Lymph: Denies: easy bruising All/Imm: Denies: urticaria PFSH ED PFSH: Medical History Atherosclerosis of coronary artery of [place] heart without angina pectoris Bilateral carotid artery stenosis BPH (benign prostatic hyperplasia) BPH loc w urin obs/LUTS Carotid artery stenosis Chronic migraine without aura, intractable, with status migrainosus Coronary artery disease CVA (cerebral vascular accident) GERD (gastroesophageal reflux disease) Hyperlipidemia Hypertension Leg edema Neurodegenerative gait disorder Osteoarthritis Sacroiliitis Urolithiasis Surgical History H/O lithotripsy History of heart artery stent x8 Family History Father CAD (coronary artery disease) Stroke Mother CAD (coronary artery disease) Other Hyperlipidemia Hypertension Denies family history of Diabetes Clotting disorder Dementia Chronic kidney disease (CKD) Anesthesia complication Bleeding disorder Lung disease Cancer Social History Smoking and tobacco status: never smoked Alcohol intake: never Adopted: No Caregiver/support person: No Lives independently: Yes Marital status: / Current occupational status: retired Physical Exam Const: COMMON NORMALS: no acute distress, patient oriented x3 and no limitations HENMT: COMMON NORMALS: normocephalic and atraumatic HEAD & SCALP: normocephalic and atraumatic Eye: COMMON NORMALS: Equal, round and reactive pupils present and conjunctivae normal CONJUNCTIVA: Yes conjunctivae normal PUPIL: Yes Equal, round and reactive pupils present Neck/C-Spine: COMMON NORMALS: full ROM Chest: COMMONS NORMALS: normal inspection of the chest and normal palpation of entire chest wall Resp: COMMON NORMALS: normal respiratory effort Cardio: COMMON NORMALS: regular rate and regular rhythm RATE: regular rate RHYTHM: regular rhythm GI: COMMON NORMALS: Normal to inspection, nondistended, normoactive bowel sounds present and Soft to palpation INSPECTION: Yes normal to inspection PALPATION: Yes Soft to palpation Extremity: COMMON NORMALS: normal to inspection Neuro: COMMON NORMALS: patient oriented x3 Course Vital Signs: Vital signs: Vital Signs Temperature 97.3 F L 04/06/22 17:15 Pulse Rate 59 L 04/06/22 18:00 Respiratory Rate 23 H 04/06/22 18:00 Blood Pressure 183/83 04/06/22 18:30 Pulse Oximetry 97 04/06/22 18:00 Oxygen Delivery Me thod 04/06/22 17:15 MDM - Altered Mental Status Medical Decision Making Patient presents here with some confusion earlier here he has been at his baseline answering all questions appropriately went and spoke to patient again he is still at his baseline his friend is here with him. Patient has no acute findings here I did offer him admission he states he feels improved and he does not want to stay I feel he is stable for discharge she is to follow-up his PCP he is return if worsening he understands agrees to plan. Lab Data : 04/06/22 17:55 04/06/22 17:55 Radiology Impressions Chest X-Ray 04/06/22 17:54 IMPRESSION: Confluent opacities at the right lung base that may represent atelectasis or in the appropriate clinical setting, pneumonia. CT scan of the chest may be helpful for further characterization if clinically indicated. Head CT 04/06/22 17:54 IMPRESSION: 1. No acute intracranial findings. 2. Age-appropriate involutional changes of the brain. 3. Very small remote bilateral white matter lacunar infarcts versus prominent perivascular spaces. Laboratory Results WBC 10.3 10^3/uL (4.0-10.0) H 04/06/22 17:55 RBC 4.70 10^6/uL (4.1-5.3) 04/06/22 17:55 Hgb 14.8 g/dL (11.7-16.6) 04/06/22 17:55 Hct 44.1 % (42.0-52.0) 04/06/22 17:55 MCV 93.8 fl (80-94) 04/06/22 17:55 MCH 31.5 pg (28.0-34.0) 04/06/22 17:55 MCHC 33.6 g/dL (30.0-36.0) 04/06/22 17:55 RDW 13.5 % (12.1-15.1) 04/06/22 17:55 Plt Count 237 10^3/cmm (130-400) 04/06/22 17:55 MPV 9.4 fL (7.4-10.4) 04/06/22 17:55 Neut % (Auto) 77.1 % 04/06/22 17:55 Lymph % (Auto) 10.0 % 04/06/22 17:55 [place] % (Auto) 10.5 % 04/06/22 17:55 Eos % (Auto) 1.3 % 04/06/22 17:55 Baso % (Auto) 0.3 % 04/06/22 17:55 Neut # (Auto) 7.91 10^3/uL (1.8-7.7) H 04/06/22 17:55 Lymph # (Auto) 1.0 10^3/uL (0.8-4.8) 04/06/22 17:55 [place] # (Auto) 1.1 10^3/uL (0.2-0.9) H 04/06/22 17:55 Eos # (Auto) 0.1 10^3/uL (0.0-0.8) 04/06/22 17:55 Baso # (Auto) 0.0 10^3/uL (0.0-0.1) 04/06/22 17:55 Nucleated RBC % (auto) 0 % 04/06/22 17:55 Nucleated RBCs # 0.0 /100WBC 04/06/22 17:55 PT Cancelled 04/06/22 18:38 INR Cancelled 04/06/22 18:38 Sodium 136 mmol/L (136-145) 04/06/22 17:55 Potassium 3.7 mmol/L (3.5-5.1) 04/06/22 17:55 Chloride 103 mmol/L (98-107) 04/06/22 17:55 Carbon Dioxide 25 mmol/L (22-29) 04/06/22 17:55 Anion Gap 11.7 (5-19) 04/06/22 17:55 BUN 39 mg/dL (8-23) H 04/06/22 17:55 Creatinine 1.5 mg/dL (0.7-1.2) H 04/06/22 17:55 GFR Calculation Not Reportable 04/06/22 17:55 Glucose 144 mg/dL (65-115) H 04/06/22 17:55 Calculated Osmolality 294 mOsm/kg (285-295) 04/06/22 17:55 Calcium 8.9 mg/dL (8.5-10.5) 04/06/22 17:55 Total Bilirubin 0.2 mg/dL (0.15-1.2) 04/06/22 17:55 AST 15 U/L (0-40) 04/06/22 17:55 ALT 11 U/L (0-41) 04/06/22 17:55 Alkaline Phosphatase 113 U/L (40-130) 04/06/22 17:55 Total Protein 7.1 g/dL (6.6-8.7) 04/06/22 17:55 Albumin 3.7 g/dL (3.5-5.2) 04/06/22 17:55 Globulin 3.4 g/dL (1.3-4.6) 04/06/22 17:55 Urine Color Yellow (Yellow) 04/06/22 18:00 Urine Appearance Clear (CLEAR) 04/06/22 18:00 Urine pH 5.5 (5-7) 04/06/22 18:00 Ur Specific [place] 1.025 (1.005-1.030) 04/06/22 18:00 Urine Protein Trace 04/06/22 18:00 Urine Glucose (UA) Negative (Normal) 04/06/22 18:00 Urine Ketones Negative (Negative) 04/06/22 18:00 Urine Blood Negative (Negative) 04/06/22 18:00 Urine Nitrate Negative 04/06/22 18:00 Urine Bilirubin Negative (Negative) 04/06/22 18:00 Urine Urobilinogen 0.2 mg/dL (Negative) 04/06/22 18:00 Ur Leukocyte Esterase Negative (Negative) 04/06/22 18:00 Urine RBC 0-4 /hpf (0-2) H 04/06/22 18:00 Urine WBC 0-4 /hpf (0-5) H 04/06/22 18:00 Ur Squamous Epith Cells 0-4 /hpf (0-5) H 04/06/22 18:00 Amorphous Sediment Not Reportable 04/06/22 18:00 Urine Bacteria Trace /hpf (NONE) 04/06/22 18:00 EKG Data EKG 1: I personally reviewed and interpreted this EKG as follows: EKG interpretation date: 04/06/22 EKG interpretation time: 18:01 Interpretation: nsr hr [address] or t wave abnormalities qrs 88 qtc 411 Discharge Plan Discharge Patient Disposition: Home Clinical Impression: Altered mental status Qualifiers: Altered mental status type: unspecified Qualified Code(s): R41.82 - Altered mental status, unspecified Condition: Stable Prescriptions: No Action amlodipine 5 mg tablet 5 mg PO BID losartan 50 mg tablet 50 mg PO DAILY Qty: 30 5RF tamsulosin 0.4 mg capsule 0.4 mg PO BID Qty: 60 3RF clopidogrel 75 mg tablet 75 mg PO QAM levothyroxine 50 mcg tablet 50 mcg PO QAM pantoprazole 40 mg tablet,delayed release (DR/EC) 40 mg PO DAILY baclofen 10 mg tablet 10 mg PO BID PRN (Reason: Pain) acetaminophen 500 mg Tablet 1,000 mg PO Q4H PRN (Reason: Pain) nitroglycerin [Nitrostat] 0.4 mg Tablet, Sublingual 0.4 mg SUBLINGUAL Q5M PRN (Reason: Chest Pain) Rx Instructions: do not exceed 3 doses per episode atorvastatin 40 mg Tablet 40 mg PO BEDTIME Qty: 30 0RF aspirin 81 mg Tablet,Delayed Release (Dr/Ec) 81 mg PO DAILY Qty: 30 0RF Discharge Orders: Discharge ED (Routine); Ordered 04/06/22 Ordered By: Corin Ledesma Referrals: Tam Farah DO [Primary Care Provider] - Discharge Diet: Advance as tolerated Discharge Activity: Resume usual activity Patient Instructions: Confusion Coding Level of Care Code ED Hydrologist for Chg Fwd Exam Comprehensive
[2022-04-06 18:00] VITALS: BP 183/83; PULSE 59; RESP 23; O2SAT 97
[2022-04-06 18:04] LABS: Basophils % 0.3 %; Eosinophils # 0.1 10^3/uL (0.0-0.8); Eosinophils % 1.3 %; Hematocrit 44.1 % (42.0-52.0); Hemoglobin 14.8 g/dL (11.7-16.6); Mean Corpuscular HGB Conc 33.6 g/dL (30.0-36.0); Mean Corpuscular Hemoglobin 31.5 pg (28.0-34.0); Mean Corpuscular Volume 93.8 fl (80-94); Mean Platelet Volume 9.4 fL (7.4-10.4); Monocytes # 1.1 10^3/uL (0.2-0.9); Monocytes % 10.5 %; Neutrophils # 7.91 10^3/uL (1.8-7.7); Neutrophils % 77.1 %; Nucleated Red Blood Cells % 0 %; Platelet Count 237 10^3/cmm (130-400); Red Cell Distribution Width 13.5 % (12.1-15.1); White Blood Count 10.3 10^3/uL (4.0-10.0)
[2022-04-06 18:09] LABS: Bilirubin Urine Negative (Negative); Blood Urine Negative (Negative); Glucose Urine UA Negative (Normal); Ketones Urine Negative (Negative); Leukocyte Esterase Urine Negative (Negative); Nitrate Urine Negative; Protein Urine Trace; Specific Gravity, Urine 1.025 (1.005-1.030); Urine Appearance Clear (CLEAR); Urine Color Yellow (Yellow); Urobilinogen Urine 0.2 mg/dL (Negative); pH Urine 5.5 (5-7)
[2022-04-06 18:20] LABS: Alanine Aminotransferase 11 U/L (0-41); Albumin Level 3.7 g/dL (3.5-5.2); Alkaline Phosphatase 113 U/L (40-130); Anion Gap 11.7 (5-19); Aspartate Amino Transferase 15 U/L (0-40); Blood Urea Nitrogen 39 mg/dL (8-23); Calcium 8.9 mg/dL (8.5-10.5); Carbon Dioxide 25 mmol/L (22-29); Chloride 103 mmol/L (98-107); Globulin 3.4 g/dL (1.3-4.6); Glucose 144 mg/dL (65-115); Osmolality Calculated 294 mOsm/kg (285-295); Potassium 3.7 mmol/L (3.5-5.1); Sodium 136 mmol/L (136-145); Total Bilirubin 0.2 mg/dL (0.15-1.2); Total Protein 7.1 g/dL (6.6-8.7)
[2022-04-06 18:22] LABS: Add Urine Microscopic? YES
[2022-04-06 18:24] LABS: Add Urine Culture? No; Bacteria Urine TRACE /hpf; RBC Urine 0-4 /hpf (0-2); Squamous Epithelial Cell Urine 0-4 /hpf (0-5); WBC Urine 0-4 /hpf (0-5)
[2022-04-06 18:30] VITALS: BP 183/83
[2022-04-06 19:58] VITALS: RESP 18; O2SAT 97
== END 2022-04-06 19:59 | disposition home or self-care (01) ==
PROVIDERS: Emergency Provider Emergency Medicine; PCP Internal Medicine
DX: R41.82 Altered mental status, unspecified (principal); Z79.02 Long term (current) use of antithrombotics/antiplatelets; Z79.82 Long term (current) use of aspirin; I25.10 Atherosclerotic heart disease of native coronary artery without angina pectoris; Z86.73 Personal history of transient ischemic attack (TIA), and cerebral infarction without residual deficits; E78.5 Hyperlipidemia, unspecified; I10 Essential (primary) hypertension
CPT/HCPCS: 70450; 71045; 80053; 81001; 85025; 93005; 99285

== ENCOUNTER 2022-04-10 08:45 | Emergency (ER) | payer MEDICARE, OTHER, SELFPAY ==
[2022-04-10] VITALS (9 sets, daily range): BP systolic 129–181; BP diastolic 72–112; PULSE 51–63; RESP 18–25; TEMP 36.4; O2SAT 95–99; BMI 23.6
--- NOTE | 2022-04-10 09:04 | XRR_ITS ---
PROCEDURE INFORMATION: Exam: XR Chest Exam date and time: 04/10/2022 9:30 AM Age: 87 years old Clinical indication: Cough and dyspnea; Patient HX: Cough confusion; Additional info: Dyspnea/cough TECHNIQUE: Imaging protocol: Radiologic exam of the chest. Views: 1 view. COMPARISON: CR (CHEST, ) 04/06/2022 6:16 PM FINDINGS: Lungs: No significant airspace consolidation concerning for pneumonia. Pleural spaces: No pneumothorax. No pleural effusion. Heart/Mediastinum: Calcified mediastinal and hilar lymph nodes identified. Bones/joints: S shaped curvature to the spine noted. XR/XR chest 1V portable [id number] IMPRESSION: 1. No significant airspace consolidation concerning for pneumonia. 2. Calcified mediastinal and hilar lymph nodes noted.
[2022-04-10 09:15] LABS: Basophils % 0.6 %; Eosinophils # 0.1 10^3/uL (0.0-0.8); Eosinophils % 2.1 %; Hematocrit 47.4 % (42.0-52.0); Hemoglobin 15.8 g/dL (11.7-16.6); Lymphocytes # 1.2 10^3/uL (0.8-4.8); Lymphocytes % 17.2 %; Mean Corpuscular HGB Conc 33.3 g/dL (30.0-36.0); Mean Corpuscular Volume 92.9 fl (80-94); Mean Platelet Volume 9.6 fL (7.4-10.4); Monocytes # 0.8 10^3/uL (0.2-0.9); Monocytes % 11.2 %; Neutrophils # 4.58 10^3/uL (1.8-7.7); Neutrophils % 68.3 %; Nucleated Red Blood Cells % 0 %; Platelet Count 225 10^3/cmm (130-400); Red Cell Distribution Width 13.2 % (12.1-15.1); White Blood Count 6.7 10^3/uL (4.0-10.0)
--- NOTE | 2022-04-10 09:15 | ECG_ITS ---
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 Measurements Intervals [place] Rate: 46 P: 48 CT: 156 QRS: 41 QRSD: 94 T: 79 QT: 456 QTc: 401 Interpretive Statements SINUS BRADYCARDIA WITH OCCASIONAL SUPRAVENTRICULAR PREMATURE COMPLEXES MODERATE ST DEPRESSION [0.05+ mV ST DEPRESSION] Compared to ECG 04/06/2022 18:01:13 ST (T wave) deviation now present Sinus rhythm no longer present Electronically Signed On 04-10-2022 12:52:10 CDT by Suzanne Montoya M.D. [email or web address]
--- NOTE | 2022-04-10 09:37 | W.ED.NEUROSD ---
HPI - Neuro Symptoms/Deficit General: Chief Complaint: Neuro Symptoms/Deficit Stated Complaint: confusion Time Seen by Provider: 04/10/22 09:01 Source: patient Mode of arrival: ambulatory History of Present Illness: 87-year-old male presents emergency room with confusion that started this morning. He has a history of previous CVA and he currently has some carotid stenosis being monitored. He denies any chest pain any abdominal pain any dysuria urgency or frequency any fever sweats or chills. On arrival here he is awake and oriented alert x3 he has an NIH score of 0 he has a little bit of speech difficulty but according to family over at the bedside that is his baseline. He is having some intermittent what he describes as jerking he will intermittently extend through his back and a spasm-like motion but he denies any back pain. He tells me he is able to control it if he concentrates but is not particularly causing him any pain. No injury no fall. States he was in his normal baseline state of health yesterday. Onset (ago): minute(s) Severity: mild Relieving factors: none Exacerbating factors: none Associated symptoms: Deny chest pain, cough, diaphoresis, fevers/chills, headache(s), anorexia, malaise, nausea, seizures, short of breath, syncope, tingling, vertigo, vomiting or weakness Treatments Prior to Arrival: none Review of Systems Const: Denies: fever(s), chills, fatigue, malaise or diaphoresis ENMT: Denies: throat pain, ear or mastoid pain, nasal discharge or nasal congestion Card: Denies: chest pain or syncope Resp: Denies: dyspnea, productive cough or non-productive cough GI: Denies: nausea or vomiting : Denies: flank pain, difficulty urinating, dysuria, urinary frequency or urinary urgency Musc: Denies: neck pain, back pain or extremity pain Skin/Breast: Denies: rash or pruritus Neuro: Denies: headache(s), numbness in extremities, weakness in extremities, sensory changes, lack of coordination or vertigo PFSH ED PFSH: Medical History Atherosclerosis of coronary artery of [place] heart without angina pectoris Bilateral carotid artery stenosis BPH (benign prostatic hyperplasia) BPH loc w urin obs/LUTS Carotid artery stenosis Chronic migraine without aura, intractable, with status migrainosus Coronary artery disease CVA (cerebral vascular accident) GERD (gastroesophageal reflux disease) Hyperlipidemia Hypertension Leg edema Neurodegenerative gait disorder Osteoarthritis Sacroiliitis Urolithiasis Surgical History H/O lithotripsy History of heart artery stent x8 Family History Father CAD (coronary artery disease) Stroke Mother CAD (coronary artery disease) Other Hyperlipidemia Hypertension Denies family history of Diabetes Clotting disorder Dementia Chronic kidney disease (CKD) Anesthesia complication Bleeding disorder Lung disease Cancer Social History Smoking and tobacco status: never smoked Alcohol intake: never Adopted: No Caregiver/support person: No Lives independently: Yes Marital status: / Current occupational status: retired NIH stroke score NIHSS: Level Of Consciousness - 1a: 0 Level Of Consciousness Questions - 1b: Both Correct Level Of Consciousness Commands - 1c: Both Correct Best Gaze - 2: Normal Visual [place] - 3: No Visual Loss Facial Palsy - 4: Normal Motor Arm Right - 5: No Drift Motor Arm Left - 5: No Drift Motor Leg Right - 6: No Drift Motor Leg Left - 6: No Drift Limb Ataxia - 7: Absent Sensory - 8: Normal Best Language - 9: No Aphasia Dysarthia - 10: Normal Extinction And Inattention - 11: 0 Score: Total Score: 0 Physical Exam Const: GENERAL APPEARANCE: cooperative and comfortable ORIENTATION/CONSCIOUSNESS: Yes awake, Yes oriented to person, Yes oriented to place and Yes oriented to time HENMT: COMMON NORMALS: normocephalic, atraumatic and hearing grossly normal bilaterally HEAD & SCALP: normocephalic and atraumatic Resp: COMMON NORMALS: normal respiratory effort, No retractions, No use of accessory muscles and clear to auscultation bilaterally AUSCULTATION: clear to auscultation bilaterally Cardio: COMMON NORMALS: regular rate, regular rhythm and No murmurs present (Cardio) RATE: regular rate RHYTHM: regular rhythm GI: COMMON NORMALS: Soft to palpation and No hepatosplenomegaly present AUSCULTATION: Yes normoactive bowel sounds PALPATION: Yes Soft to palpation, No Tenderness to palpation present (GI), No Guarding due to palpation present (GI) and Yes No hepatosplenomegaly present : COMMON NORMALS: Yes no CVA tenderness BLADDER/KIDNEY EXAM: Yes no CVA tenderness Back/Pelvis: COMMON NORMALS: no CVA tenderness Extremity: COMMON NORMALS: normal to inspection, capillary refill normal, no clubbing, cyanosis or edema, no calf tenderness and no pedal edema Neuro: SENSORIUM/ORIENTATION: Yes oriented to person, Yes oriented to place and Yes oriented to time Skin: COMMON NORMALS: no rashes or lesions noted GENERAL SKIN EXAM: no rashes or lesions noted Course Vital Signs: Vital signs: Vital Signs Temperature 97.5 F L 04/10/22 08:58 Pulse Rate 57 L 04/10/22 13:17 Respiratory Rate 25 H 04/10/22 09:41 Blood Pressure 141/73 04/10/22 13:17 Pulse Oximetry 96 04/10/22 13:17 Oxygen Delivery Me thod 04/10/22 12:20 MDM - Neuro Symptoms/Deficit Medical Decision Making No focal neurologic deficits are noted. He had a brief period of loss consciousness is fully awake and cognizant. He cannot recall any events during that short period of time. Nothing that the family describes sounds like he had a seizure and was postictal. He seems to have more of a tic with the spasms during conversation distraction and goes away and later rechecked with him after the exam work-up was completed he was not having any episodes until I asked about them. We will [place] discharge patient home continue to follow-up with Dr. Machado. If he has recurring episodes like this may need EEG or neurologic evaluation for seizures. Medical Records I reviewed the patient's medical records. Lab Data I reviewed the patient's lab results. : 04/10/22 08:35 04/10/22 08:35 Radiology Impressions Chest X-Ray 04/10/22 09:04 IMPRESSION: 1. No significant airspace consolidation concerning for pneumonia. 2. Calcified mediastinal and hilar lymph nodes noted. Head CT 04/10/22 10:51 IMPRESSION: 1. No evidence of intracranial hemorrhage or mass effect. 2. Moderate small vessel changes. Moderate parenchymal volume loss. 3. Tiny chronic lacunar infarcts in the basal ganglia unchanged. 4. No acute intracranial findings. Laboratory Results WBC 6.7 10^3/uL (4.0-10.0) 04/10/22 08:35 RBC 5.10 10^6/uL (4.1-5.3) 04/10/22 08:35 Hgb 15.8 g/dL (11.7-16.6) 04/10/22 08:35 Hct 47.4 % (42.0-52.0) 04/10/22 08:35 MCV 92.9 fl (80-94) 04/10/22 08:35 MCH 31.0 pg (28.0-34.0) 04/10/22 08:35 MCHC 33.3 g/dL (30.0-36.0) 04/10/22 08:35 RDW 13.2 % (12.1-15.1) 04/10/22 08:35 Plt Count 225 10^3/cmm (130-400) 04/10/22 08:35 MPV 9.6 fL (7.4-10.4) 04/10/22 08:35 Neut % (Auto) 68.3 % 04/10/22 08:35 Lymph % (Auto) 17.2 % 04/10/22 08:35 [place] % (Auto) 11.2 % 04/10/22 08:35 Eos % (Auto) 2.1 % 04/10/22 08:35 Baso % (Auto) 0.6 % 04/10/22 08:35 Neut # (Auto) 4.58 10^3/uL (1.8-7.7) 04/10/22 08:35 Lymph # (Auto) 1.2 10^3/uL (0.8-4.8) 04/10/22 08:35 [place] # (Auto) 0.8 10^3/uL (0.2-0.9) 04/10/22 08:35 Eos # (Auto) 0.1 10^3/uL (0.0-0.8) 04/10/22 08:35 Baso # (Auto) 0.0 10^3/uL (0.0-0.1) 04/10/22 08:35 Nucleated RBC % (auto) 0 % 04/10/22 08:35 Nucleated RBCs # 0.0 /100WBC 04/10/22 08:35 Sodium 139 mmol/L (136-145) 04/10/22 08:35 Potassium 3.7 mmol/L (3.5-5.1) 04/10/22 08:35 Chloride 102 mmol/L (98-107) 04/10/22 08:35 Carbon Dioxide 25 mmol/L (22-29) 04/10/22 08:35 Anion Gap 15.7 (5-19) 04/10/22 08:35 BUN 19 mg/dL (8-23) 04/10/22 08:35 Creatinine 1.2 mg/dL (0.7-1.2) 04/10/22 08:35 GFR Calculation Not Reportable 04/10/22 08:35 Glucose 129 mg/dL (65-115) H 04/10/22 08:35 Calculated Osmolality 292 mOsm/kg (285-295) 04/10/22 08:35 Calcium 9.3 mg/dL (8.5-10.5) 04/10/22 08:35 Total Bilirubin 0.5 mg/dL (0.15-1.2) 04/10/22 08:35 AST 15 U/L (0-40) 04/10/22 08:35 ALT 10 U/L (0-41) 04/10/22 08:35 Alkaline Phosphatase 109 U/L (40-130) 04/10/22 08:35 Total Protein 7.9 g/dL (6.6-8.7) 04/10/22 08:35 Albumin 3.9 g/dL (3.5-5.2) 04/10/22 08:35 Globulin 4.0 g/dL (1.3-4.6) 04/10/22 08:35 Urine Color Yellow (Yellow) 04/10/22 10:33 Urine Appearance Clear (CLEAR) 04/10/22 10:33 Urine pH 6 (5-7) 04/10/22 10:33 Ur Specific [place] 1.015 (1.005-1.030) 04/10/22 10:33 Urine Protein Trace (Negative) 04/10/22 10:33 Urine Glucose (UA) Norm (Normal) 04/10/22 10:33 Urine Ketones Negative (Negative) 04/10/22 10:33 Urine Blood Trace (Negative) H 04/10/22 10:33 Urine Nitrate Negative (Negative) 04/10/22 10:33 Urine Bilirubin Neg (Negative) 04/10/22 10:33 Urine Urobilinogen Neg mg/dL (Negative) 04/10/22 10:33 Ur Leukocyte Esterase Negative (Negative) 04/10/22 10:33 Urine RBC None /hpf (0-2) 04/10/22 10:33 Urine WBC None /hpf (0-5) 04/10/22 10:33 Ur Squamous Epith Cells 0-4 /hpf (0-5) H 04/10/22 10:33 Amorphous Sediment Not Reportable 04/10/22 10:33 Urine Bacteria None /hpf (NONE) 04/10/22 10:33 Urine Mucus 1+ /hpf 04/10/22 10:33 Discharge Plan Discharge Patient Disposition: Home Clinical Impression: TGA (transient global amnesia), History of cerebrovascular accident (CVA) in adulthood, Carotid stenosis, right, Anxiety Condition: Stable Prescriptions: No Action amlodipine 5 mg tablet 5 mg PO BID losartan 50 mg tablet 50 mg PO DAILY Qty: 30 5RF tamsulosin 0.4 mg capsule 0.4 mg PO BID Qty: 60 3RF clopidogrel 75 mg tablet 75 mg PO QAM levothyroxine 50 mcg tablet 50 mcg PO QAM pantoprazole 40 mg tablet,delayed release (DR/EC) 40 mg PO DAILY acetaminophen 500 mg Tablet 1,000 mg PO Q4H PRN (Reason: Pain) nitroglycerin [Nitrostat] 0.4 mg Tablet, Sublingual 0.4 mg SUBLINGUAL Q5M PRN (Reason: Chest Pain) Rx Instructions: do not exceed 3 doses per episode atorvastatin 40 mg Tablet 40 mg PO BEDTIME Qty: 30 0RF aspirin 81 mg Tablet,Delayed Release (Dr/Ec) 81 mg PO DAILY Qty: 30 0RF albuterol sulfate 90 mcg/actuation Hfa Aerosol Inhaler 2 puff INHALATION QID PRN (Reason: Shortness Of Breath) Discharge Orders: Discharge ED (Routine); Ordered 04/10/22 Ordered By: Everardo Dyson Referrals: Tam Farah DO [Primary Care Provider] - Discharge Diet: Usual diet Discharge Activity: Increase activity as tolerated Patient Instructions: Opioid Safety, Pain Management Activity Restrictions/Additional Instructions: Follow-up with Dr. Machado as previously scheduled. Coding Level of Care Code ED Respite Care Provider for Chg Emma
[2022-04-10 09:39] LABS: Alanine Aminotransferase 10 U/L (0-41); Albumin Level 3.9 g/dL (3.5-5.2); Alkaline Phosphatase 109 U/L (40-130); Anion Gap 15.7 (5-19); Aspartate Amino Transferase 15 U/L (0-40); Blood Urea Nitrogen 19 mg/dL (8-23); Calcium 9.3 mg/dL (8.5-10.5); Carbon Dioxide 25 mmol/L (22-29); Chloride 102 mmol/L (98-107); Glucose 129 mg/dL (65-115); Osmolality Calculated 292 mOsm/kg (285-295); Potassium 3.7 mmol/L (3.5-5.1); Sodium 139 mmol/L (136-145); Total Bilirubin 0.5 mg/dL (0.15-1.2); Total Protein 7.9 g/dL (6.6-8.7)
--- NOTE | 2022-04-10 10:51 | CT_ITS ---
WS: [id number] CT HEAD TECHNIQUE: Noncontrast CT of the head obtained from the skullbase to the vertex. CLINICAL INFORMATION: AMS COMPARISON: CT April 06, 2022 DLP: 1030.[address] scans at [facility] use at least one of these dose optimization techniques: automated e xposure control; mA and/or kV adjustment per patient size (includes targeted exams where dose is matc hed to clinical indication); or iterative reconstruction. FINDINGS: No evidence of intracranial hemorrhage or mass effect. Ventricular system and basal cisterns are pool nt. Moderate small vessel changes with moderate parenchymal volume loss. Chronic lacunar infarcts in the LEFT greater than RIGHT basal ganglia unchanged from previous. Intracranial vascular calcificatio n. No extra-axial fluid collections. No evidence of mass or mass effect. Paranasal sinuses and mastoid air cells are well aerated. .Normal visualized soft tissues. CT/CT head wo con* [id number] IMPRESSION: 1. No evidence of intracranial hemorrhage or mass effect. 2. Moderate small vessel changes. Moderate parenchymal volume loss. 3. Tiny chronic lacunar infarcts in the basal ganglia unchanged. 4. No acute intracranial findings.
[2022-04-10 10:58] LABS: Bilirubin Urine Neg (Negative); Blood Urine Trace (Negative); Glucose Urine UA Norm (Normal); Ketones Urine Negative (Negative); Leukocyte Esterase Urine Negative (Negative); Nitrate Urine Negative (Negative); Protein Urine Trace (Negative); Specific Gravity, Urine 1.015 (1.005-1.030); Urine Appearance Clear (CLEAR); Urine Color Yellow (Yellow); Urobilinogen Urine Neg (Negative); pH Urine 6 (5-7)
[2022-04-10 10:59] LABS: Add Urine Culture? No; Add Urine Microscopic? YES; Mucus Urine 1+ /hpf; Squamous Epithelial Cell Urine 0-4 /hpf (0-5)
== END 2022-04-10 13:19 | disposition home or self-care (01) ==
PROVIDERS: Emergency Provider Family Medicine; PCP Internal Medicine
DX: G45.4 Transient global amnesia (principal); I65.21 Occlusion and stenosis of right carotid artery; F41.9 Anxiety disorder, unspecified; Z86.73 Personal history of transient ischemic attack (TIA), and cerebral infarction without residual deficits; Z79.02 Long term (current) use of antithrombotics/antiplatelets; Z79.82 Long term (current) use of aspirin; I25.10 Atherosclerotic heart disease of native coronary artery without angina pectoris; E78.5 Hyperlipidemia, unspecified; I10 Essential (primary) hypertension
CPT/HCPCS: 70450; 71045; 80053; 81001; 85025; 93005; 99285

== ENCOUNTER → 2022-04-15 12:31 | Outpatient (BNVA) | payer MEDICARE, OTHER, SELFPAY | PROVIDERS: PCP Internal Medicine; Visit Provider Thoracic Surgery (Cardiothoracic Vascular Surgery) | DX: I65.21 Occlusion and stenosis of right carotid artery (principal) | CPT/HCPCS: 99213 ==

== ENCOUNTER 2022-06-02 07:23 | Emergency (ER) | payer MEDICARE, OTHER, SELFPAY ==
[2022-06-02] VITALS (11 sets, daily range): BP systolic 124–198; BP diastolic 67–94; PULSE 49–70; RESP 16–25; TEMP 36.3; O2SAT 93–99
--- NOTE | 2022-06-02 07:49 | XR_ITS ---
WS: [id number] XR hip LT 2-3V wo/w pel* [id number] REASON FOR EXAM: pain FINDINGS: Mild narrowing of the joint space with mild acetabular subchondral sclerosis, moderate osteophytosis. No fracture or other focal bone abnormality. No soft tissue abnormality. 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
--- NOTE | 2022-06-02 07:50 | CT_ITS ---
WS: [id number] CT HEAD TECHNIQUE: Noncontrast CT of the head obtained from the skullbase to the vertex. CLINICAL INFORMATION: fall, closed head injury COMPARISON: April 10, 2022 DLP: 927.[address] scans at [facility] use at least one of these dose optimization techniques: automated e xposure control; mA and/or kV adjustment per patient size (includes targeted exams where dose is matc hed to clinical indication); or iterative reconstruction. FINDINGS: No evidence of intracranial hemorrhage or mass effect. Ventricular system and basal cisterns are pool nt. Moderate small vessel changes with moderate parenchymal volume loss. Chronic lacunar infarcts in the RIGHT caudate and bilateral basal ganglia. Intracranial vascular calcification. No extra-axial fl uid collections. No evidence of mass or mass effect. Paranasal sinuses and mastoid air cells are well aerated. .Normal visualized soft tissues. CT/CT head wo con* [id number] IMPRESSION: 1. No evidence of intracranial hemorrhage or mass effect. 2. Moderate small vessel changes with moderate parenchymal volume loss. 3. No acute intracranial findings.
--- NOTE | 2022-06-02 07:50 | ECG_ITS ---
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 Measurements Intervals [place] Rate: 55 P: 46 LA: 140 QRS: 70 QRSD: 98 T: 92 QT: 452 QTc: 435 Interpretive Statements SINUS BRADYCARDIA NONSPECIFIC T-WAVE ABNORMALITY Compared to ECG 04/10/2022 09:15:18 T-wave abnormality now present ST (T wave) deviation no longer present Electronically Signed On 06-02-2022 14:49:44 TECHNICAL BUYER by Tree Melton M.D. [id number]
--- NOTE | 2022-06-02 07:58 | W.ED.WEAKNES ---
HPI - Weakness General: Chief complaint: Weakness Stated complaint: Fall, slurred speach, weakness Time Seen by Provider: 06/02/22 07:49 Source: patient Mode of arrival: ambulatory History of Present Illness: 87-year-old male who presents to the emergency room with difficulty with speech and walking particularly weak in his legs. This began yesterday around 4. He previously had a stroke and had difficulty with speech and seems to be a little bit worse in addition to that he is having the leg weakness. This morning around 630 he fell in the bathroom at home complaining of some left hip pain to that his left hip just will not hold him up he also had hit his head when he fell is no loss of consciousness he has no obvious trauma he is definitely slurring his words although some of his leftover from previous stroke. He has a very slight left facial droop neither he nor his could give a definite onset of this. He has full strength in all of his extremities with no drift. MD Complaint: generalized weakness Onset (ago): minute(s) Duration: constant Location: generalized Severity: moderate Relieving factors: none Exacerbating factors: none Associated symptoms: Denies chest pain, chills, confusion, melena, decreased appetite, diaphoresis, dysuria, easy bruising, fever(s), headache(s), myalgias, nausea, rash, short of breath, syncope or vomiting Review of Systems Const: Denies: fever(s), chills, fatigue, malaise or diaphoresis ENMT: Denies: throat pain, ear or mastoid pain, nasal discharge or nasal congestion Card: Denies: chest pain or syncope Resp: Denies: dyspnea, productive cough or non-productive cough GI: Denies: abdominal pain, nausea, vomiting or melena : Denies: difficulty urinating, dysuria, urinary frequency or urinary urgency Skin/Breast: Denies: rash or pruritus Neuro: Denies: headache(s) or confusion Ronaldo/Lymph: Denies: easy bruising PFSH ED PFSH: Medical History Atherosclerosis of coronary artery of [place] heart without angina pectoris Bilateral carotid artery stenosis BPH (benign prostatic hyperplasia) BPH loc w urin obs/LUTS Carotid artery stenosis Chronic migraine without aura, intractable, with status migrainosus Coronary artery disease CVA (cerebral vascular accident) GERD (gastroesophageal reflux disease) Hyperlipidemia Hypertension Leg edema Neurodegenerative gait disorder Osteoarthritis Sacroiliitis Urolithiasis Surgical History H/O lithotripsy History of heart artery stent x8 Family History Father CAD (coronary artery disease) Stroke Mother CAD (coronary artery disease) Other Hyperlipidemia Hypertension Denies family history of Diabetes Clotting disorder Dementia Chronic kidney disease (CKD) Anesthesia complication Bleeding disorder Lung disease Cancer Social History Smoking and tobacco status: never smoked Alcohol intake: never Adopted: No Caregiver/support person: No Lives independently: Yes Marital status: / Current occupational status: retired Physical Exam Const: COMMON NORMALS: no acute distress GENERAL APPEARANCE: cooperative and comfortable ORIENTATION/CONSCIOUSNESS: Yes awake, Yes oriented to person, Yes oriented to place and Yes oriented to time HENMT: COMMON NORMALS: normocephalic, atraumatic, hearing grossly normal bilaterally, external ears normal, EAC's normal, TM's normal bilaterally, Normal nasal mucous membranes and turbinates present, moist oral mucous membranes and oropharynx normal HEAD & SCALP: normocephalic and atraumatic NOSE: Normal nasal mucous membranes and turbinates present EXTERNAL EAR: Yes external ears normal EXTERNAL AUDITORY CANAL: EAC's normal TYMPANIC MEMBRANE: TM's normal bilaterally Eye: COMMON NORMALS: Equal, round and reactive pupils present, EOMs intact bilaterally, conjunctivae normal and no scleral icterus CONJUNCTIVA: Yes conjunctivae normal PUPIL: Yes Equal, round and reactive pupils present Resp: COMMON NORMALS: normal respiratory effort, No retractions, No use of accessory muscles and clear to auscultation bilaterally AUSCULTATION: clear to auscultation bilaterally Cardio: COMMON NORMALS: regular rate, regular rhythm and No murmurs present (Cardio) RATE: regular rate RHYTHM: regular rhythm GI: COMMON NORMALS: Soft to palpation and No hepatosplenomegaly present AUSCULTATION: Yes normoactive bowel sounds PALPATION: Yes Soft to palpation, No Tenderness to palpation present (GI), No Guarding due to palpation present (GI) and Yes No hepatosplenomegaly present Extremity: COMMON NORMALS: normal to inspection, capillary refill normal, no clubbing, cyanosis or edema, no calf tenderness and no pedal edema Neuro: SENSORIUM/ORIENTATION: Yes oriented to person, Yes oriented to place and Yes oriented to time Skin: COMMON NORMALS: no rashes or lesions noted GENERAL SKIN EXAM: no rashes or lesions noted Course Vital Signs: Vital signs: Vital Signs Temperature 97.4 F L 06/02/22 07:31 Pulse Rate 61 06/02/22 12:30 Respiratory Rate 16 06/02/22 12:30 Blood Pressure 134/69 06/02/22 12:30 Pulse Oximetry 94 06/02/22 12:30 Oxygen Delivery Me thod 06/02/22 07:31 MDM - Weakness Medical Decision Making Labs and imaging reviewed repeat exam. Patient has episodes of mild confusion but he has no focal logic deficits he has some previous residual deficits but nothing that is new according to the or to the patient. At this point do not believe there is much else that can be done he is already on aspirin and Plavix we will add atorvastatin 40 mg daily for stroke prevention discharge patient home is been having a hard time getting around and with memory. Both the patient and his prefer to consider penitentiary placement and will follow up with her primary care doc with. Medical Records I reviewed the patient's medical records. Lab Data I reviewed the patient's lab results. 06/02/22 10:50 06/02/22 10:50 Radiology Impressions Hip/Pelvis X-Ray 06/02/22 07:49 IMPRESSION: Mild to moderate osteoarthritis of the left hip joint with no acute abnormality identified. Head CT 06/02/22 07:50 IMPRESSION: 1. No evidence of intracranial hemorrhage or mass effect. 2. Moderate small vessel changes with moderate parenchymal volume loss. 3. No acute intracranial findings. Laboratory Results WBC 6.8 10^3/uL (4.0-10.0) 06/02/22 10:50 RBC 4.89 10^6/uL (4.1-5.3) 06/02/22 10:50 Hgb 14.9 g/dL (11.7-16.6) 06/02/22 10:50 Hct 44.2 % (42.0-52.0) 06/02/22 10:50 MCV 90.4 fl (80-94) 06/02/22 10:50 MCH 30.5 pg (28.0-34.0) 06/02/22 10:50 MCHC 33.7 g/dL (30.0-36.0) 06/02/22 10:50 RDW 13.1 % (12.1-15.1) 06/02/22 10:50 Plt Count 197 10^3/cmm (130-400) 06/02/22 10:50 MPV 9.3 fL (7.4-10.4) 06/02/22 10:50 Neut % (Auto) 70.4 % 06/02/22 10:50 Lymph % (Auto) 20.1 % 06/02/22 10:50 Dixie % (Auto) 7.8 % 06/02/22 10:50 Eos % (Auto) 1.0 % 06/02/22 10:50 Baso % (Auto) 0.4 % 06/02/22 10:50 Neut # (Auto) 4.76 10^3/uL (1.8-7.7) 06/02/22 10:50 Lymph # (Auto) 1.4 10^3/uL (0.8-4.8) 06/02/22 10:50 Dixie # (Auto) 0.5 10^3/uL (0.2-0.9) 06/02/22 10:50 Eos # (Auto) 0.1 10^3/uL (0.0-0.8) 06/02/22 10:50 Baso # (Auto) 0.0 10^3/uL (0.0-0.1) 06/02/22 10:50 Nucleated RBC % (auto) 0 % 06/02/22 10:50 Nucleated RBCs # 0.0 /100WBC 06/02/22 10:50 Sodium 137 mmol/L (136-145) 06/02/22 10:50 Potassium 4.2 mmol/L (3.5-5.1) 06/02/22 10:50 Chloride 104 mmol/L (98-107) 06/02/22 10:50 Carbon Dioxide 25 mmol/L (22-29) 06/02/22 10:50 Anion Gap 12.2 (5-19) 06/02/22 10:50 BUN 22 mg/dL (8-23) 06/02/22 10:50 Creatinine 1.3 mg/dL (0.7-1.2) H 06/02/22 10:50 GFR Calculation Not Reportable 06/02/22 10:50 Glucose 106 mg/dL (65-115) 06/02/22 10:50 Calculated Osmolality 288 mOsm/kg (285-295) 06/02/22 10:50 Calcium 9.1 mg/dL (8.5-10.5) 06/02/22 10:50 Total Bilirubin 0.3 mg/dL (0.15-1.2) 06/02/22 10:50 AST 17 U/L (0-40) 06/02/22 10:50 ALT 11 U/L (0-41) 06/02/22 10:50 Alkaline Phosphatase 107 U/L (40-130) 06/02/22 10:50 Total Protein 6.8 g/dL (6.6-8.7) 06/02/22 10:50 Albumin 3.6 g/dL (3.5-5.2) 06/02/22 10:50 Globulin 3.2 g/dL (1.3-4.6) 06/02/22 10:50 Urine Color Yellow (Yellow) 06/02/22 11:31 Urine Appearance Clear (CLEAR) 06/02/22 11:31 Urine pH 6 (5-7) 06/02/22 11:31 Ur Specific [place] 1.010 (1.005-1.030) 06/02/22 11:31 Urine Protein Neg (Negative) 06/02/22 11:31 Urine Glucose (UA) Norm (Normal) 06/02/22 11:31 Urine Ketones Negative (Negative) 06/02/22 11:31 Urine Blood Neg (Negative) 06/02/22 11:31 Urine Nitrate Negative (Negative) 06/02/22 11:31 Urine Bilirubin Neg (Negative) 06/02/22 11:31 Urine Urobilinogen Norm mg/dL (Negative) 06/02/22 11:31 Ur Leukocyte Esterase Negative (Negative) 06/02/22 11:31 Discharge Plan Discharge Patient Disposition: Home Clinical Impression: Fall, History of CVA (cerebrovascular accident) Condition: Stable Prescriptions: New atorvastatin 40 mg tablet 40 mg PO DAILY Qty: 30 0RF No Action amlodipine 5 mg tablet 5 mg PO BID losartan 50 mg tablet 50 mg PO DAILY Qty: 30 5RF tamsulosin 0.4 mg capsule 0.4 mg PO BID Qty: 60 3RF clopidogrel 75 mg tablet 75 mg PO QAM levothyroxine 50 mcg tablet 50 mcg PO QAM pantoprazole 40 mg tablet,delayed release (DR/EC) 40 mg PO DAILY acetaminophen 500 mg Tablet 1,000 mg PO Q4H PRN (Reason: Pain) nitroglycerin [Nitrostat] 0.4 mg Tablet, Sublingual 0.4 mg SUBLINGUAL Q5M PRN (Reason: Chest Pain) Rx Instructions: do not exceed 3 doses per episode aspirin 81 mg Tablet,Delayed Release (Dr/Ec) 81 mg PO DAILY Qty: 30 0RF albuterol sulfate 90 mcg/actuation Hfa Aerosol Inhaler 2 puff INHALATION QID PRN (Reason: Shortness Of Breath) Discharge Orders: Discharge ED (Routine); Ordered 06/02/22 Ordered By: Everardo Dyson Referrals: Tam Farah DO [Primary Care Provider] - Discharge Diet: Usual diet Discharge Activity: Increase activity as tolerated Patient Instructions: Opioid Safety, Pain Management Activity Restrictions/Additional Instructions: You are seen for complaint of episode of weakness. Neurologically her exam is normal and there is no evidence of stroke at this time. He already on aspirin and Plavix. We will add atorvastatin 40 mg daily. Continue all of your other medications at this time monitor blood pressures closely and follow-up with your primary care doctor. Coding Level of Care Code ED Racing Car Driver for Rah Fwmilly Exam Comprehensive
[2022-06-02 11:03] LABS: Basophils % 0.4 %; Eosinophils # 0.1 10^3/uL (0.0-0.8); Hematocrit 44.2 % (42.0-52.0); Hemoglobin 14.9 g/dL (11.7-16.6); Lymphocytes # 1.4 10^3/uL (0.8-4.8); Lymphocytes % 20.1 %; Mean Corpuscular HGB Conc 33.7 g/dL (30.0-36.0); Mean Corpuscular Hemoglobin 30.5 pg (28.0-34.0); Mean Corpuscular Volume 90.4 fl (80-94); Mean Platelet Volume 9.3 fL (7.4-10.4); Monocytes # 0.5 10^3/uL (0.2-0.9); Monocytes % 7.8 %; Neutrophils # 4.76 10^3/uL (1.8-7.7); Neutrophils % 70.4 %; Nucleated Red Blood Cells % 0 %; Platelet Count 197 10^3/cmm (130-400); Red Blood Count 4.89 10^6/uL (4.1-5.3); Red Cell Distribution Width 13.1 % (12.1-15.1); White Blood Count 6.8 10^3/uL (4.0-10.0)
[2022-06-02 11:27] LABS: Alanine Aminotransferase 11 U/L (0-41); Albumin Level 3.6 g/dL (3.5-5.2); Alkaline Phosphatase 107 U/L (40-130); Anion Gap 12.2 (5-19); Aspartate Amino Transferase 17 U/L (0-40); Blood Urea Nitrogen 22 mg/dL (8-23); Calcium 9.1 mg/dL (8.5-10.5); Carbon Dioxide 25 mmol/L (22-29); Chloride 104 mmol/L (98-107); Globulin 3.2 g/dL (1.3-4.6); Glucose 106 mg/dL (65-115); Osmolality Calculated 288 mOsm/kg (285-295); Potassium 4.2 mmol/L (3.5-5.1); Sodium 137 mmol/L (136-145); Total Bilirubin 0.3 mg/dL (0.15-1.2); Total Protein 6.8 g/dL (6.6-8.7)
[2022-06-02] MEDS: morphine 4 mg/mL SDV 1 mL IVP (11:34)
[2022-06-02 11:55] LABS: Add Urine Microscopic? NO; Charge for UA Resulting for Rev
[2022-06-02 12:04] LABS: Bilirubin Urine Neg (Negative); Blood Urine Neg (Negative); Glucose Urine UA Norm (Normal); Ketones Urine Negative (Negative); Leukocyte Esterase Urine Negative (Negative); Nitrate Urine Negative (Negative); Protein Urine Neg (Negative); Urine Appearance Clear (CLEAR); Urine Color Yellow (Yellow); Urobilinogen Urine Norm (Negative); pH Urine 6 (5-7)
== END 2022-06-02 13:05 | disposition home or self-care (01) ==
PROVIDERS: Emergency Provider Family Medicine; PCP Internal Medicine
DX: R41.0 Disorientation, unspecified (principal); Z86.73 Personal history of transient ischemic attack (TIA), and cerebral infarction without residual deficits; W19.XXXA Unspecified fall, initial encounter
CPT/HCPCS: 70450; 73502; 80053; 81003; 85025; 93005; 96374; 99285; J2270

== ENCOUNTER → 2022-06-04 09:56 | Outpatient (BNVA) | payer MEDICARE, OTHER, SELFPAY | PROVIDERS: PCP Internal Medicine; Visit Provider Nurse Practitioner Family | DX: I10 Essential (primary) hypertension (principal) | CPT/HCPCS: 99214 ==

== ENCOUNTER 2022-06-12 08:49 | Outpatient (CLI) | payer MEDICARE, OTHER, SELFPAY ==
--- NOTE | 2022-06-12 09:00 | XR_ITS ---
WS: [id number] EXAMINATION: XR KUB [id number] REASON FOR EXAM: RENAL CALCIFICATION COMPARISON: 06/12/2020 ORDER DATE: 06/12/2022 9:00 AM FINDINGS: There is a nonspecific colonic gas pattern with scattered fecal content and gas. There is no sign of significant small bowel dilation. Numerous splenic granulomatous calcifications are noted in the lef t upper quadrant. The prior calcifications described superimposing the kidneys are not clearly seen o n the study. XR/XR KUB [id number] IMPRESSION: No acute change.
== END 2022-06-12 08:50 | disposition home or self-care (01) ==
LOC: RAD 08:52
PROVIDERS: PCP Internal Medicine; Visit Provider Urology
DX: N40.1 Benign prostatic hyperplasia with lower urinary tract symptoms (principal); N20.9 Urinary calculus, unspecified
CPT/HCPCS: 51798; 74018; 99213

== ENCOUNTER 2022-06-25 10:45 | Outpatient (CLI) | payer MEDICARE, OTHER, SELFPAY ==
--- NOTE | 2022-06-25 11:15 | USCV_ITS ---
Des Fuller Age: 87 Gender: M : 1935 Exam Date: 06/25/2022 11:01 Ordering Phys: Pamela Trimble Technologist: Nikolay Younger [place] [facility] [place]: UNCONTROLLED HYPERTENSION Aortic Velocity @ SMA (cm/s) 56.9 RIGHT KIDNEY LEFT KIDNEY Velocity (cm/s) Velocity (cm/s) Sys/Whiting Sys/Whiting Resistive Index Resistive Index 73.5 / 16.5 0.78 Proximal Renal Artery 70.0 / 12.0 0.83 91.3 / 16.1 0.82 Mid Renal Artery 55.6 / 12.4 0.78 127.8 / 52.6 0.59 Distal Renal Artery 114.0 / 20.7 0.82 108.5 / 25.8 0.76 Hilar 35.7 / 8.3 0.77 66.1 / 15.7 0.76 Upper Pole 114.0 / 34.7 0.70 30.1 / 11.3 0.63 Mid Pole 28.1 / 6.0 0.78 53.2 / 15.0 0.72 Lower Pole 30.6 / 6.9 0.78 2.20 Renal Aortic Ratio 2.00 Accleration Index (cm/sec2) 697.00 Hilar 150.00 1421.0 Upper Pole 556.00 0 162.00 Mid Pole 218.00 816.00 Lower Pole 181.00 94.0 Kidney Length (mm) 110.8 FINDINGS No comparison. AAA 3.5 cm. Mild right renal atrophy and bilateral chronic medical renal disease. No significant renal artery stenosis. CONCLUSIONS No sonographic evidence of hemodynamically significant renal artery stenosis bilaterally. AAA 3.[address] Mary Cannon DO (Electronically Signed) Final Date: 25 June 2022 11:58 S
== END 2022-06-25 10:46 | disposition home or self-care (01) ==
LOC: RAD 10:47
PROVIDERS: PCP Internal Medicine; Visit Provider Nurse Practitioner Family
DX: I10 Essential (primary) hypertension (principal)
CPT/HCPCS: 93975

== ENCOUNTER 2022-07-09 12:27 | Outpatient (CLI) | payer MEDICARE, OTHER, SELFPAY ==
--- NOTE | 2022-07-09 12:41 | USCV_ITS ---
Des Fuller Age: 87 Gender: M : 1935 Exam Date: 07/09/2022 13:45 Ordering Phys: Tam Farah DO Technologist: Cresencio Pichardo Student Activities Director Exam Location: [facility] [place] Indication: left leg claudication RIGHT LEFT Brachial 170.00 mmHg Brachial 165.00 mmHg Pressure (mmHg) Waveform Pressure (mmHg) Waveform 169.00 GIFT OFFICER 172.00 181.00 DPA 184.00 1.06 Ankle/Brachial Index 1.08 124.00 Pre-Exercise Toe Pressure 108.00 0.73 Pre-Exercise Toe/Brachial Index 0.64 FINDINGS Resting ZAK of 1.06 on the right and 1.08 on the left Resting TBI of 0.73 on the right and 0.64 on the left CONCLUSIONS 1. Normal resting ZAK and TBI on the right side suggesting no significant arterial obstruction. 2. Normal resting ZAK with slightly diminished resting ZAK on the left side, suggesting mild peripheral artery disease, possibly involving the distal vessels No similar previous studies are available for comparison Dr Tree Melton MD [facility] (Electronically Signed) Final Date: 09 July 2022 16:57 S
== END 2022-07-09 12:28 | disposition home or self-care (01) ==
LOC: RAD 12:29
PROVIDERS: PCP Internal Medicine; Visit Provider Internal Medicine
DX: I73.9 Peripheral vascular disease, unspecified (principal)
CPT/HCPCS: 93922

== ENCOUNTER → 2022-10-08 09:36 | Outpatient (BNVA) | payer MEDICARE, OTHER, SELFPAY | PROVIDERS: PCP Internal Medicine; Referring Provider Dermatology; Visit Provider Nurse Practitioner Family | DX: M79.601 Pain in right arm (principal); M54.12 Radiculopathy, cervical region | CPT/HCPCS: 73030; 99214 ==

== ENCOUNTER 2022-10-10 10:48 | Outpatient (CLI) | payer MEDICARE, OTHER, SELFPAY ==
--- NOTE | 2022-10-10 11:15 | USCV_ITS ---
Jonny Des Age: 87 Gender: M : 1935 Exam Date: 10/10/2022 11:07 Ordering Phys: Marcus Machado MD (Andy) ([email or web address] [place]) Technologist: CT Exam Location: [facility] [place] Indication: stenosis Risk Factors: Previous Vascular Surgery: Right Brachial BP: / Left Brachial BP: / Right Left Velocity (cm/s) Spectral Plaque Velocity (cm/s) Spectral Plaque Syst/Diast Broadening Syst/Diast Broadening 66.30/ 10.05 Prox CCA 67.90 / 10.20 70.10/ 10.50 Mid CCA 71.30 / 10.20 78.75/ 11.65 Distal CCA 63.10 / 9.50 211.40/28.10 Prox ICA 166.60/ 23.50 125.60/13.70 Mid ICA 117.70/ 23.50 85.50/ 12.00 Distal ICA 50.70 / 10.10 164.00 ECA 248.30 2.54 ICA/CCA 2.34 Antegrade Vertebral Antegrade 30.80/ 5.80 cm/s 33.60/ 10.10 cm/s Tri Subclavian Bi 101.7 102.5 0 0 FINDINGS Comparison:. 12/23/21 Mixture of calcified and noncalcified plaque in the carotid arteries. Moderate elevation of systolic velocity in the internal carotid arteries. Velocity is not as significantly elevated as on the prior exam. Antegrade vertebral arteries. CONCLUSIONS Left ICA stenosis 50-69%. Right ICA stenosis 50-69%. Heterogenous carotid atherosclerotic plaque. Dr. Mary Cannon DO (Electronically Signed) Final Date: 10 October 2022 13:51 S
== END 2022-10-10 10:49 | disposition home or self-care (01) ==
LOC: RAD 10:49
PROVIDERS: PCP Internal Medicine; Visit Provider Thoracic Surgery (Cardiothoracic Vascular Surgery)
DX: I65.23 Occlusion and stenosis of bilateral carotid arteries (principal); R55 Syncope and collapse
CPT/HCPCS: 93880

== ENCOUNTER → 2022-10-23 11:16 | Outpatient (BNVA) | payer MEDICARE, OTHER, SELFPAY | PROVIDERS: PCP Internal Medicine; Visit Provider Thoracic Surgery (Cardiothoracic Vascular Surgery) | DX: I65.23 Occlusion and stenosis of bilateral carotid arteries (principal); I10 Essential (primary) hypertension; Z79.82 Long term (current) use of aspirin | CPT/HCPCS: 99213 ==

== ENCOUNTER 2022-10-28 14:00 | Outpatient (CLI) | payer MEDICARE, OTHER, SELFPAY ==
--- NOTE | 2022-10-28 14:30 | MR_ITS ---
WS: [id number] MRI CERVICAL SPINE NONCONTRAST HISTORY: neck pain COMPARISON: None available. Technique: Multiplanar, multisequence noncontrast imaging of the cervical spine. Normal cervical alignment. LEFT curvature cervical spine. C4 anterolisthesis 2.6 mm. C5 anterolisthes is by 3.7 mm. Severe disc space narrowing at C4-5 and C5-6. Osteophytes at all levels. No fractures o r marrow edema. Signal within the cervical cord is normal. Visualized posterior fossa is unremarkable. Craniocervical junction, C1 and C2 relationship, odontoid process and soft tissues are normal. C2-C3: Facet joint arthritis. Foraminal osteophytes. No high-grade stenosis. C3-C4: Mild osteophytic ridging and annular disc bulging with facet arthritis. Severe RIGHT and moder ate LEFT foraminal stenosis. C4-C5: Unroofing of the disc due to anterolisthesis of C4. Disc encroachment upon the ventral thecal sac. Bilateral facet joint arthritis. Mild central and bilateral foraminal stenosis. C5-C6: Unroofing of the disc with annular disc bulging and facet joint arthritis. Mild central and bi lateral foraminal stenosis. C6-C7: Annular disc bulging with osteophytic ridging. Mild bilateral foraminal stenosis, LEFT greater than RIGHT. C7-T1: Severe RIGHT and moderate LEFT foraminal stenosis with mild central stenosis. Paraspinal soft tissue are normal. MR/MR cervical spin wo con* [id number] IMPRESSION: 1. Severe degenerative changes throughout the cervical spine. Scoliosis with a nterolisthesis of C4 and C5. Advanced degenerative disc disease at C4-5 and C5- 6. 2. Multilevel stenoses due to combination of the scoliosis, anterolisthesis an d osteophytes. 3. Severe RIGHT and moderate LEFT foraminal stenosis at C3-4. 4. Mild central and bilateral foraminal stenosis at C4-5 and C5-6. 5. Mild bilateral foraminal stenosis at C6-7, LEFT greater than RIGHT. 6. Severe RIGHT and moderate LEFT foraminal stenosis at C7-T1.
== END 2022-10-28 14:01 | disposition home or self-care (01) ==
LOC: RAD 14:03
PROVIDERS: PCP Internal Medicine; Visit Provider Nurse Practitioner Family
DX: M54.12 Radiculopathy, cervical region (principal); M79.601 Pain in right arm; M50.321 Other cervical disc degeneration at C4-C5 level; M50.322 Other cervical disc degeneration at C5-C6 level
CPT/HCPCS: 72141

== ENCOUNTER → 2022-11-04 15:48 | Outpatient (BNVA) | payer MEDICARE, OTHER, SELFPAY | PROVIDERS: PCP Internal Medicine; Visit Provider Physician Assistant | DX: M47.812 Spondylosis without myelopathy or radiculopathy, cervical region (principal) | CPT/HCPCS: 72050; 99203 ==

== ENCOUNTER → 2022-12-22 13:08 | Outpatient (BNVA) | payer MEDICARE, OTHER, SELFPAY | PROVIDERS: PCP Internal Medicine; Visit Provider Specialist | DX: I25.10 Atherosclerotic heart disease of native coronary artery without angina pectoris (principal); I10 Essential (primary) hypertension; E78.2 Mixed hyperlipidemia | CPT/HCPCS: 99214 ==

== ENCOUNTER 2023-02-28 08:42 | Observation (INO) | payer MEDICARE, OTHER, SELFPAY ==
[2023-02-28] VITALS (14 sets, daily range): BP systolic 108–196; BP diastolic 44–155; PULSE 46–97; RESP 16–20; TEMP 36.4–36.8; O2SAT 92–100; BMI 24.3
--- NOTE | 2023-02-28 08:50 | ECG_ITS ---
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 Measurements Intervals [place] Rate: 56 P: 96 CT: 185 QRS: 55 QRSD: 90 T: 81 QT: 406 QTc: 395 Interpretive Statements SINUS BRADYCARDIA NONSPECIFIC ST & T-WAVE ABNORMALITY Compared to ECG 06/02/2022 08:44:37 No significant changes Electronically Signed On 02-28-2023 14:41:35 CDT by Gómez Garcia M.D. [id number]
--- NOTE | 2023-02-28 08:50 | XRR_ITS ---
PROCEDURE INFORMATION: Exam: XR Chest Exam date and time: 02/28/2023 9:07 AM Age: 88 years old Clinical indication: Cough and dyspnea; Additional info: Dyspnea/cough TECHNIQUE: Imaging protocol: Radiologic exam of the chest. 1image(s) are provided. Views: 1 view. COMPARISON: 1. CR XR chest 2V* [id number] 01/30/2023 9:43 AM with no report currently available 2. CR XR chest 1V portable [id number] 04/10/2022 9:30 AM FINDINGS: Lungs: There are chronic granulomatous related changes similar overall. No lobar consolidation is appreciated. Pleural spaces: No pneumothorax or pleural effusion is appreciated. Heart/Mediastinum: The cardiomediastinal silhouette is upper normal. No cardiac decompensation is appreciated. Diaphragm: There is slight asymmetric right hemidiaphragm elevation. Bones/joints: Osseous alignment is maintained.No interval displaced fracture or dislocation is appreciated. Soft tissues: No radiopaque foreign body or subcutaneous emphysema is appreciated. Other findings: There is some mild chronic air trapping appearance overall. No other significant interval changes are appreciated. XR/XR chest 1V portable [id number] IMPRESSION: No lobar consolidation is appreciated.No interval acute cardiopulmonary changes are appreciated.
--- NOTE | 2023-02-28 09:15 | PC.NURSE ---
PHYSICIAN NOTIFIED OF PT ALLERGY TO HYDRALAZINE
--- NOTE | 2023-02-28 09:15 | ED_ITS ---
HPI - General Adult General: Chief complaint: General Medical Stated complaint: neck pain high blood presure Time Seen by Provider: 02/28/23 08:49 Source: patient Mode of arrival: wheelchair History of Present Illness: 88-year-old male presents emergency room with elevated blood pressure. He gone to a local clinic today is complaining of stiff neck and a mild headache. He has a history of previous stroke and history of coronary disease he has not taken his regular blood pressure medicines this morning he is normally on los guero hydrochlorothiazide. He reports allergies on this chart to amlodipine and hydralazine which cause reported lower extremity edema and headache. He has not had any difficulty with breathing swallowing or rash with these medicines. Onset (ago): hour(s) Associated symptoms: Deny chest pain, confusion, cough, diaphoresis, decreased appetite, dyspnea, fevers/chills, headache(s), malaise, nausea, rash, palpitations, seizures, short of breath, syncope, vomiting or weakness Treatments prior to arrival: none Review of Systems Const: Denies: fever(s), chills, malaise or diaphoresis Card: Denies: chest pain, palpitations or syncope Resp: Denies: dyspnea GI: Denies: abdominal pain, nausea or vomiting : Denies: flank pain, dysuria, urinary frequency or urinary urgency Skin/Breast: Denies: rash Neuro: Denies: headache(s) or confusion PFSH ED PFSH: Medical History Atherosclerosis of coronary artery of [place] heart without angina pectoris Bilateral carotid artery stenosis BPH (benign prostatic hyperplasia) BPH loc w urin obs/LUTS Carotid artery stenosis Chronic migraine without aura, intractable, with status migrainosus Coronary artery disease CVA (cerebral vascular accident) GERD (gastroesophageal reflux disease) Hyperlipidemia Hypertension Leg edema Neurodegenerative gait disorder Osteoarthritis Sacroiliitis Urolithiasis Surgical History H/O lithotripsy History of heart artery stent x8 Family History Father , AT AGE 72 CAD (coronary artery disease) Stroke Mother , AT AGE 78 CAD (coronary artery disease) Other Hyperlipidemia Hypertension Denies family history of Diabetes Clotting disorder Dementia Chronic kidney disease (CKD) Anesthesia complication Bleeding disorder Lung disease Cancer Social History Smoking and tobacco status: never smoked Alcohol intake: never Substance/Drug Use: never Adopted: No Caregiver/support person: No Lives independently: Yes Marital status: / Current occupational status: retired Physical Exam Const: GENERAL APPEARANCE: cooperative and comfortable ORIENTATION/CONSCIOUSNESS: Yes awake, Yes oriented to person, Yes oriented to place and Yes oriented to time HENMT: COMMON NORMALS: normocephalic, atraumatic and hearing grossly normal bilaterally HEAD & SCALP: normocephalic and atraumatic Resp: COMMON NORMALS: normal respiratory effort, No retractions, No use of accessory muscles and clear to auscultation bilaterally AUSCULTATION: clear to auscultation bilaterally Cardio: COMMON NORMALS: regular rate, regular rhythm and No murmurs present (Cardio) RATE: regular rate RHYTHM: regular rhythm GI: COMMON NORMALS: Soft to palpation and No hepatosplenomegaly present AUSCULTATION: Yes normoactive bowel sounds PALPATION: Yes Soft to palpation, No Tenderness to palpation present (GI), No Guarding due to palpation present (GI) and Yes No hepatosplenomegaly present Extremity: COMMON NORMALS: normal to inspection, capillary refill normal, no clubbing, cyanosis or edema, no calf tenderness and no pedal edema Neuro: SENSORIUM/ORIENTATION: Yes oriented to person, Yes oriented to place and Yes oriented to time OTHER: No focal neurologic deficits. He does have some mild slurring of words words which she states is chronic he is as normal facial symmetry and equal strength bilaterally no ataxia. Skin: COMMON NORMALS: no rashes or lesions noted GENERAL SKIN EXAM: no rash es or lesions noted Course Vital Signs: Vital signs: Vital Signs Temperature 98.2 F 02/28/23 08:51 Pulse Rate 55 L 02/28/23 11:44 Respiratory Rate 18 02/28/23 11:30 Blood Pressure 135/58 02/28/23 11:44 Pulse Oximetry 94 02/28/23 11:30 Oxygen Delivery Me thod Room Air 02/28/23 08:51 MDM - General Adult Medical Decision Making Blood pressures improved initially regarding discharge the patient with medication adjustments however he went to get him up he became diaphoretic had a little bit of chest discomfort his blood pressure decreased and became significantly bradycardic at times into the 40s. This persisted EKG did not stephan w any acute changes. Troponin series ordered we will place patient on observation [place] for monitoring of blood pressure around the rule out on his chest discomfort with serial enzymes. Discussed with hospitalist orders written Medical Records I reviewed the patient's medical records. Lab Data I reviewed the patient's lab results. 02/28/23 09:02 02/28/23 09:02 Radiology Impressions Chest X-Ray 02/28/23 08:50 IMPRESSION: No lobar consolidation is appreciated.No interval acute cardiopulmonary changes are appreciated. Laboratory Results WBC 7.93 10^3/uL (3.29-11.43) 02/28/23 09:02 RBC 5.27 10^6/uL (3.85-5.65) 02/28/23 09:02 Hgb 16.10 g/dL (11.27-16.99) 02/28/23 09:02 Hct 48.1 % (37-53) 02/28/23 09:02 MCV 91.3 fl (82-101) 02/28/23 09:02 MCH 30.6 pg (27-33) 02/28/23 09:02 MCHC 33.5 g/dL (30-55) 02/28/23 09:02 RDW 13.5 % (12.1-15.1) 02/28/23 09:02 Plt Count 197 10^3/cmm (157-399) 02/28/23 09:02 MPV 9.2 fL (7.4-10.4) 02/28/23 09:02 Neut % (Auto) 66.4 % 02/28/23 09:02 Lymph % (Auto) 21.6 % 02/28/23 09:02 Cherry % (Auto) 9.5 % 02/28/23 09:02 Eos % (Auto) 1.6 % 02/28/23 09:02 Baso % (Auto) 0.4 % 02/28/23 09:02 Neut # (Auto) 5.27 10^3/uL (1.8-7.7) 02/28/23 09:02 Lymph # (Auto) 1.7 10^3/uL (0.8-4.8) 02/28/23 09:02 Cherry # (Auto) 0.8 10^3/uL (0.2-0.9) 02/28/23 09:02 Eos # (Auto) 0.1 10^3/uL (0.0-0.8) 02/28/23 09:02 Baso # (Auto) 0.0 10^3/uL (0.0-0.1) 02/28/23 09:02 Nucleated RBC % (auto) 0 % 02/28/23 09:02 Nucleated RBCs # 0.0 /100WBC 02/28/23 09:02 Sodium 137 mmol/L (136-145) 02/28/23 09:02 Potassium 4.1 mmol/L (3.5-5.1) 02/28/23 09:02 Chloride 100 mmol/L (98-107) 02/28/23 09:02 Carbon Dioxide 27 mmol/L (22-29) 02/28/23 09:02 Anion Gap 14.1 (5-19) 02/28/23 09:02 BUN 33 mg/dL (8-23) H 02/28/23 09:02 Creatinine 2.0 mg/dL (0.7-1.2) H 02/28/23 09:02 GFR Calculation Not Reportable 02/28/23 09:02 Glucose 123 mg/dL (65-115) H 02/28/23 09:02 Calculated Osmolality 293 mOsm/kg (285-295) 02/28/23 09:02 Calcium 9.2 mg/dL (8.5-10.5) 02/28/23 09:02 Total Bilirubin 0.4 mg/dL (0.15-1.2) 02/28/23 09:02 AST 21 U/L (0-40) 02/28/23 09:02 ALT 15 U/L (0-41) 02/28/23 09:02 Alkaline Phosphatase 115 U/L (40-130) 02/28/23 09:02 Troponin T Baseline 23 ng/L (0-15) H 02/28/23 12:14 Total Protein 8.0 g/dL (6.6-8.7) 02/28/23 09:02 Albumin 4.3 g/dL (3.5-5.2) 02/28/23 09:02 Globulin 3.7 g/dL (1.3-4.6) 02/28/23 09:02 Discharge Plan Discharge Patient Disposition: Placed in Observation Clinical Impression: Hypertension, Chronic kidney disease (CKD), Cervicalgia, Bradycardia Condition: Stable Prescriptions: New Cardura 2 mg tablet 2 mg PO .qhs Qty: 30 0RF losartan 100 mg tablet 100 mg PO DAILY Qty: 30 0RF hydralazine 25 mg tablet 25 mg PO TID Qty: 90 0RF tramadol 50 mg tablet 25 mg PO Q8H PRN (Reason: pain) Qty: 14 0RF Discontinued losartan-hydrochlorothiazide 100-25 mg Tablet 1 tab PO DAILY No Action clopidogrel 75 mg tablet 75 mg PO QAM levothyroxine 50 mcg tablet 50 mcg PO QAM amlodipine 5 mg tablet 5 mg PO DAILY isosorbide mononitrate 60 mg tablet extended release 24 hr 60 mg PO DAILY tamsulosin 0.4 mg capsule 0.4 mg PO DAILY gabapentin 100 mg capsule 100 mg PO DAILY cetirizine 10 mg Tablet 10 mg PO DAILY PRN (Reason: Allergic Symptoms) acetaminophen 500 mg Tablet 1,000 mg PO Q4H PRN (Reason: Pain) nitroglycerin [Nitrostat] 0.4 mg Tablet, Sublingual 0.4 mg SUBLINGUAL Q5M PRN (Reason: Chest Pain) Rx Instructions: do not exceed 3 doses per episode Discharge Orders: Discharge ED (Routine); Ordered 02/28/23 Ordered By: Everardo Dyson Referrals: Tam Farah DO [Primary Care Provider] - Discharge Diet: Usual diet Discharge Activity: Increase activity as tolerated Patient Instructions: Opioid Safety, Pain Management Activity Restrictions/Additional Instructions: You are seen today for elevated blood pressure. Stop the losartan hydrochlorothiazide and instead take plain losartan 100 mg daily. We will also add hydralazine 25 3 times daily and Cardura 2 mg nightly. Continue your other previously prescribed medications and follow-up with your doctor to recheck your blood pressure within the week. Coding Level of Care Code ED Road Crew Member for Rah Carter
[2023-02-28 09:24] LABS: Basophils % 0.4 %; Eosinophils # 0.1 10^3/uL (0.0-0.8); Eosinophils % 1.6 %; Hematocrit 48.1 % (37-53); Lymphocytes # 1.7 10^3/uL (0.8-4.8); Lymphocytes % 21.6 %; Mean Corpuscular HGB Conc 33.5 g/dL (30-55); Mean Corpuscular Hemoglobin 30.6 pg (27-33); Mean Corpuscular Volume 91.3 fl (82-101); Mean Platelet Volume 9.2 fL (7.4-10.4); Monocytes # 0.8 10^3/uL (0.2-0.9); Monocytes % 9.5 %; Neutrophils # 5.27 10^3/uL (1.8-7.7); Neutrophils % 66.4 %; Nucleated Red Blood Cells % 0 %; Platelet Count 197 10^3/cmm (157-399); Red Blood Count 5.27 10^6/uL (3.85-5.65); Red Cell Distribution Width 13.5 % (12.1-15.1); White Blood Count 7.93 10^3/uL (3.29-11.43)
[2023-02-28] MEDS: hyDRALAzine 20 mg/mL INJ 1 mL 10 MG IVP ×2 (09:39→10:39)
[2023-02-28] MEDS: enalaprilat 1.25 mg/mL Inj IVP (09:39)
[2023-02-28 09:46] LABS: Alanine Aminotransferase 15 U/L (0-41); Albumin Level 4.3 g/dL (3.5-5.2); Alkaline Phosphatase 115 U/L (40-130); Anion Gap 14.1 (5-19); Aspartate Amino Transferase 21 U/L (0-40); Blood Urea Nitrogen 33 mg/dL (8-23); Calcium 9.2 mg/dL (8.5-10.5); Carbon Dioxide 27 mmol/L (22-29); Chloride 100 mmol/L (98-107); Globulin 3.7 g/dL (1.3-4.6); Glucose 123 mg/dL (65-115); Osmolality Calculated 293 mOsm/kg (285-295); Potassium 4.1 mmol/L (3.5-5.1); Sodium 137 mmol/L (136-145); Total Bilirubin 0.4 mg/dL (0.15-1.2)
--- NOTE | 2023-02-28 11:30 | PC.NURSE ---
UPON TIME OF DC PT MONITORING AND IV REMOVED. PT SAT UP AND IN BED AND STATED THAT HE DOES NOT FEEL VERY GOOD AT ALL. PT BLOOD PRESSURE 117/55 PT COOL AND DIAPHORETIC. PHYSICIAN NOTIFIED.
--- NOTE | 2023-02-28 11:52 | ECG_ITS ---
[facility] Test Date: 2023-02-28 Pat Name: Des Fuller Department: Room: Gender: Male [employer]: : 1935 Requested By: Everardo Walden Order Number: [id number] Mar MD: Gómez Garcia M.D. Measurements Intervals [place] Rate: 56 P: 91 [place]: 191 QRS: 80 QRSD: 90 T: 119 QT: 438 QTc: 424 Interpretive Statements SINUS BRADYCARDIA NONSPECIFIC ST & T-WAVE ABNORMALITY Compared to ECG 02/28/2023 09:38:32 No significant changes Electronically Signed On 02-28-2023 14:41:12 CDT by Gómez Garcia M.D. [id number]
[2023-02-28 12:42] LABS: Troponin(5th) Baseline 23 ng/L (0-15)
--- NOTE | 2023-02-28 12:55 | CTR_ITS ---
PROCEDURE INFORMATION: Exam: CT Abdomen And Pelvis Without Contrast Exam date and time: 02/28/2023 1:27 PM Age: 88 years old Clinical indication: Other: Urinary retention, history of nephrolithiasis; additional info: Urinary retention, history of nephrolithiasis, please include renal stone protocol. No history of trauma or recent surgery is provided. TECHNIQUE: Imaging protocol: Computed tomography of the abdomen and pelvis without contrast. 364image(s) are provided. Radiation optimization: All CT scans at this facility use at least one of these dose optimization techniques: automated exposure control; mA and/or kV adjustment per patient size (includes targeted exams where dose is matched to clinical indication); or iterative reconstruction. Other technique: Axial images are available with sagittal and coronal reconstruction views. Automated dose exposure control is utilized. The DLP is 497.08. REPORTING DATA: Count of CT and Cardiac NM exams in prior 12 months: This patient has received 3 known CTs and 0 known cardiac nuclear medicine studies in the 12 months prior to the current study. COMPARISON: 1. CT abdomen pelvis w con* [id number] 06/15/2018 8:26 PM 2. CR XR KUB [id number] 06/12/2022 9:02 AM RADIATION DOSE METRICS: Total DLP (mGy-cm): 497.08 FINDINGS: Lungs: No lobar consolidation is appreciated. There are chronic granulomatous changes present similar overall. Liver: There appears to be some hepatic steatosis with marginal sparing similar overall. Gallbladder and bile ducts: There appears to be some trace gallbladder sludge. Pancreas: No pancreatic ductal dilatation or calculus is currently appreciated. Spleen: The spleen demonstrates granulomatous calcification similar overall. Adrenal glands: Unremarkable. Kidneys and ureters: No interval radiopaque obstructive calculus or hydronephrosis appreciated. There is some nonspecific perinephric stranding overall bilaterally relatively similar. There is some nonobstructive punctate calcific appearance about the left inferior pole calyx junction similar overall. There is some nonobstructive calcification about the right midpole calyx. 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 There is some nephrogenic fluid dense cystic appearance similar overall for example right superiorly. Stomach and bowel: Some aspects of the colon are undistended. This may also be peristaltic related. There is some stool present limiting mucosal detail evaluation.The bowel gas pattern appears nonobstructive. There is a small sliding-type hiatal hernia demonstrated with slight gastroesophageal fold thickening. Appendix: There is an unremarkable overall appearance of the appendix demonstrated. Intraperitoneal space: No free air or free fluid collections are appreciated. Vasculature: There is some atherosclerotic tortuous and ectatic appearance of the aorta with similar appearance and distribution overall. For example including distal transverse diameter of approximately 3.3 cm. This may be marginally increased. Lymph nodes: There are subcentimeter predominant para-aortic and mesenteric lymph nodes overall present. Urinary bladder: The bladder is incompletely fluid filled for evaluation which may exagerate the wall thickness. This can also be seen with post inflammation sequela. Reproductive: There is some prostate hypertrophy and calcific appearance. This indents the adjacent bladder margin. Bones/joints: Osseous alignment is maintained.No interval displaced fracture or dislocation is appreciated.There is slightly decreased bone mineralization overall. Soft tissues: No radiopaque foreign body or subcutaneous emphysema is appreciated. Other findings: There is some motion artifact present. No other significant interval changes are appreciated. CT/CT abdomen pelvis wo con [id number] IMPRESSION: 1. There is some lobulated prostate hypertrophy indenting the adjacent bladder margin. 2. No interval radiopaque obstructive renal calculus or hydronephrosis is appreciated.
--- NOTE | 2023-02-28 12:58 | P.HP_ITS ---
Providers/Chief Complaint Primary Care Provider: Tam Farah DO Chief Complaint: neck pain high blood presure History of Present Illness Des Fuller is a 88 year old male w/ PMH of bradycardia, renal stones, BPH, hypothyroid, who presented to ER with complaint of neck pain, urinary retention, abdominal fullness and elevated BP. States that he was able to get up multiple times through the night and void urine, but this morning was unable to and began to develop abdominal pain. Reports a history of multiple renal stones in the past. He says that he has not had difficulties urinating in the recent weeks. He also reports that his neck has been hurting more through the night. He elected to come to the ER to be evaluated. In the ER, his pressures were elevated with sbp into the 190's and dbp into the 150's. He was given a dose of enalapril and 2 doses of hydralazine which did reduce his pressures. Shortly after he began to have bradycardia and orthostatic symptoms upon standing. He denies CP or Dyspnea at this time. His labs showed elevated Cr to 2.0, which is greater than his baseline of around 1.4. He continued to have difficulties urinating and his bladder was scanned showing around 280ml. Nixon cath was ordered to relieve the retention. EKG showed sinus bradycardia similar to his previous. CXR was unremarkable. He was admitted to the floor for observation. Review of Systems General: Reports: 10 or more systems reviewed and unremarkable except in HPI and below Medications/Allergies Home Medications Medication Instructions Recorded Confirmed Last Taken Type clopidogrel 75 mg tablet 75 mg PO QAM 09/13/19 02/28/23 06/01/22 History levothyroxine 50 mcg tablet 50 mcg PO QAM 09/13/19 02/28/23 06/01/22 History acetaminophen 500 mg tablet 1,000 mg PO Q4H PRN Pain 12/23/21 02/28/23 Unknown History nitroglycerin 0.4 mg sublingual 0.4 mg sublingual Q5M PRN Chest 12/23/21 02/28/23 Unknown History tablet (Nitrostat) Pain amlodipine 5 mg tablet 5 mg PO DAILY 02/28/23 02/28/23 Unknown History cetirizine 10 mg tablet 10 mg PO DAILY PRN Allergic 02/28/23 02/28/23 Unknown History Symptoms doxazosin 2 mg tablet (Cardura) 2 mg PO .qhs #30 tabs 02/28/23 Unknown Rx gabapentin 100 mg capsule 100 mg PO DAILY 02/28/23 02/28/23 Unknown History hydralazine 25 mg tablet 25 mg PO TID #90 tabs 02/28/23 Unknown Rx isosorbide mononitrate 60 mg 60 mg PO DAILY 02/28/23 02/28/23 Unknown History tablet,extended release 24 hr losartan 100 mg tablet 100 mg PO DAILY #30 tabs 02/28/23 Unknown Rx tamsulosin 0.4 mg capsule 0.4 mg PO DAILY 02/28/23 02/28/23 Unknown History tramadol 50 mg tablet 25 mg PO Q8H PRN pain #14 tabs 02/28/23 Unknown Rx Allergies Allergy/AdvReac Type Severity Reaction Status Date / Time amlodipine Allergy pedal edema Verified 02/28/23 08:55 hydralazine AdvReac ADR-Headach Verified 02/28/23 08:55 e PFSH Acute PFSH: Medical History Atherosclerosis of coronary artery of [place] heart without angina pectoris Bilateral carotid artery stenosis BPH (benign prostatic hyperplasia) BPH loc w urin obs/LUTS Carotid artery stenosis Chronic migraine without aura, intractable, with status migrainosus Coronary artery disease CVA (cerebral vascular accident) GERD (gastroesophageal reflux disease) Hyperlipidemia Hypertension Leg edema Neurodegenerative gait disorder Osteoarthritis Sacroiliitis Urolithiasis Surgical History H/O lithotripsy History of heart artery stent x8 Family History Father , AT AGE 72 CAD (coronary artery disease) Stroke Mother , AT AGE 78 CAD (coronary artery disease) Other Hyperlipidemia Hypertension Denies family history of Diabetes Clotting disorder Dementia Chronic kidney disease (CKD) Anesthesia complication Bleeding disorder Lung disease Cancer Social History Smoking and tobacco status: never smoked Alcohol intake: never Substance/Drug Use: never Adopted: No Caregiver/support person: No Lives independently: Yes Marital status: / Current occupational status: retired Vitals/I&O/Wt Last Vital Signs Temp 98.2 F 02/28/23 08:51 Pulse 55 L 02/28/23 11:44 Resp 18 02/28/23 11:30 BP 135/58 02/28/23 11:44 Pulse Ox 94 02/28/23 11:30 O2 Del Method Room Air 02/28/23 08:51 Weight last 48 hrs Weight 165 lb Physical Exam Narrative: General: Cooperative patient in no apparent distress. Well developed. HEENT: Normocephalic, Atraumatic. External ears normal. Nasal passages patent without drainage. MMM. Heart: Bradycardia with regular rhythm. Resp: LCTA. No respiratory distress, no use of accessory muscles. Abd: Full, mild tenderness throughout. Bowel sounds were present and normal. Extremities: No edema. Skin: No rash or lesions on exposed areas. Neuro: No focal motor or sensory loss. Data 02/28/23 09:02 02/28/23 09:02 A&P Assessment and plan (1) Chronic kidney disease (CKD): (2) Cervicalgia: (3) Carotid artery stenosis: (4) Urolithiasis: (5) Hypertension: (6) BPH loc w urin obs/LUTS: (7) Bradycardia: Plan 88 y/o M admitted for observation for abdominal pain, urinary retention, elevated BP and orthostatic symptoms. Will place the patient on Med/Surg for now. Labs show elevated Cr above baseline. Will send for CT Abd with renal stone protocol. Catheter placement and urinary studies ordered. Recheck am labs. Will provide analgesics for cervical pain. Telemetry and [id number] today. Troponin series ordered and pending. Pain and elevated BP may be related to abdominal pain vs. urinary retention. SCDs for VTE ppx. Awaiting urinary output after catheter. Will send urine for eval and culture if indicated. Code Status: Full IVF: none DVT PPx: SCD's GI PPx: protonix ABx: none Diet: cardiac Discharge plan: home when appropriate. Attestations Medical Necessity Statement*: Admit for obs for urinary studies, repeat labs, CT, and monitor HR and BP. Coding Level of Care Code Acute Code for Chg Fwd Moderate MDM includes number and complexity of problems actively addressed during encounter, amount and/or complexity of data reviewed/ordered and described risk of complication, morbidity or mortality of management as documented Diagnoses Chronic kidney disease (CKD) N18.9 Cervicalgia M54.2 Carotid artery stenosis I65.29 Urolithiasis N20.9 Hypertension I10 BPH loc w urin obs/LUTS N40.1 Bradycardia R00.1
--- NOTE | 2023-02-28 14:04 | ECG_ITS ---
[facility] Test Date: 2023-02-28 Pat Name: Des Fuller Department: Room: 277 Gender: Male Communications Director: : 1935 Requested By: Everardo Walden Order Number: [id number] Mar MD: Gómez Garcia M.D. Measurements Intervals [place] Rate: 75 P: 94 [place]: 190 QRS: 82 QRSD: 90 T: -17 QT: 392 QTc: 438 Interpretive Statements SINUS RHYTHM ST DEVIATION AND MODERATE T-WAVE ABNORMALITY, CONSIDER LATERAL ISCHEMIA [-0.1+ mV T-WAVE IN I/aVL/V5/V6] Compared to ECG 02/28/2023 11:38:59 Possible ischemia now present Sinus bradycardia no longer present T-wave abnormality still present Electronically Signed On 02-28-2023 14:44:40 CDT by Gómez Garcia M.D. [id number]
[2023-02-28 15:49] LABS: Troponin 5 2HR 26.52 ng/L (0-15)
[2023-02-28 15:53] LABS: Troponin 5 2HR Delta 3.52 ABS# (0-10)
[2023-02-28] MEDS: acetaminophen 325 mg Tablet 650 MG PO (16:51)
[2023-02-28 18:45] LABS: Add Urine Culture? Yes; Add Urine Microscopic? YES; Bacteria Urine TRACE /hpf; Bilirubin Urine Neg (Negative); Blood Urine 3+ (Negative); Glucose Urine UA Norm (Normal); Ketones Urine 1+ (Negative); Leukocyte Esterase Urine Negative (Negative); Mucus Urine TRACE /hpf; Nitrate Urine Negative (Negative); Protein Urine Trace (Negative); RBC Urine 40-50 /hpf (0-2); Squamous Epithelial Cell Urine 0-4 /hpf (0-5); Urine Appearance Clear (CLEAR); Urine Color Yellow (Yellow); Urobilinogen Urine Norm (Negative); WBC Urine 0-4 /hpf (0-5); pH Urine 5 (5-7)
--- NOTE | 2023-02-28 19:36 | ECG_ITS ---
[facility] Test Date: 2023-02-28 Pat Name: Des Fuller Department: Room: 277 Gender: Male [employer]: : 1935 Requested By: Everardo Walden Order Number: [id number] Mar MD: Gómez Garcia M.D. Measurements Intervals [place] Rate: 79 P: 37 [place]: 179 QRS: 47 QRSD: 89 T: 77 QT: 380 QTc: 437 Interpretive Statements SINUS RHYTHM WITH OCCASIONAL SUPRAVENTRICULAR PREMATURE COMPLEXES NONSPECIFIC ST & T-WAVE ABNORMALITY Compared to ECG 02/28/2023 14:04:10 Possible ischemia no longer present T-wave abnormality still present Electronically Signed On 03-01-2023 15:24:48 CDT by Gómez Garcia M.D. [id number]
[2023-02-28 19:43] LABS: Troponin 5 6HR 25.39 ng/L (0-15)
[2023-02-28 19:50] LABS: Troponin 5 6HR Delta 2.39 ng/L (0-12)
[2023-02-28] MEDS: hyDROXYzine 25 mg Capsule PO (22:07)
[2023-03-01 04:00] VITALS: BP 159/80; PULSE 62; RESP 17; TEMP 36.4; O2SAT 96
[2023-03-01 05:41] LABS: Basophils % 0.5 %; Eosinophils # 0.1 10^3/uL (0.0-0.8); Eosinophils % 0.9 %; Lymphocytes % 12.2 %; Mean Corpuscular HGB Conc 33.6 g/dL (30-55); Mean Corpuscular Hemoglobin 30.3 pg (27-33); Mean Platelet Volume 9.2 fL (7.4-10.4); Monocytes # 0.7 10^3/uL (0.2-0.9); Monocytes % 8.5 %; Neutrophils # 6.63 10^3/uL (1.8-7.7); Neutrophils % 77.5 %; Nucleated Red Blood Cells % 0 %; Platelet Count 189 10^3/cmm (157-399); Red Blood Count 5.22 10^6/uL (3.85-5.65); Red Cell Distribution Width 13.8 % (12.1-15.1); White Blood Count 8.55 10^3/uL (3.29-11.43)
[2023-03-01 06:00] VITALS: PULSE 56
[2023-03-01 06:03] LABS: Alanine Aminotransferase 11 U/L (0-41); Albumin Level 3.8 g/dL (3.5-5.2); Alkaline Phosphatase 101 U/L (40-130); Anion Gap 12.9 (5-19); Aspartate Amino Transferase 18 U/L (0-40); Blood Urea Nitrogen 37 mg/dL (8-23); Carbon Dioxide 26 mmol/L (22-29); Chloride 100 mmol/L (98-107); Globulin 3.4 g/dL (1.3-4.6); Glucose 116 mg/dL (65-115); Osmolality Calculated 290 mOsm/kg (285-295); Potassium 3.9 mmol/L (3.5-5.1); Sodium 135 mmol/L (136-145); Total Bilirubin 0.3 mg/dL (0.15-1.2); Total Protein 7.2 g/dL (6.6-8.7)
[2023-03-01 08:00] VITALS: BP 175/80; PULSE 74; PULSE 75; RESP 17; TEMP 36.9; O2SAT 95
[2023-03-01] MEDS: pantoprazole DR 40 mg Tablet PO (08:30)
[2023-03-01 11:07] VITALS: BP 162/78; PULSE 77; RESP 16; TEMP 36.5; O2SAT 93
[2023-03-01 14:00] VITALS: PULSE 78
[2023-03-01 15:17] VITALS: PULSE 78
--- NOTE | 2023-03-01 17:09 | P.SS_ITS ---
Short Stay Summary Providers Date of Admit/Discharge: 03/01/23 Attending Provider: Jorge Pierce DO Primary Care Provider: Tam Farah DO Chief Complaint: neck pain high blood presure HPI History of Present Illness Des Fuller is a 88 year old male w/ PMH of bradycardia, renal stones, BPH, hypothyroid,? who presented to ER with complaint of neck pain, urinary retention, abdominal fullness and elevated BP.? States that he was able to get up multiple times through the night and void urine, but this morning was unable to and began to develop abdominal pain.? Reports a history of multiple renal stones in the past. ? He says that he has not had difficulties urinating in the recent weeks. ? He also reports that his neck has been hurting more through the night.? He elected to come to the ER to be evaluated. In the ER, his pressures were elevated with sbp into the 190's and dbp into the 150's.? He was given a dose of enalapril and 2 doses of hydralazine which did reduce his pressures.? Shortly after he began to have bradycardia and orthostatic symptoms upon standing.? He denies CP or Dyspnea at this time.? His labs showed elevated Cr to 2.0, which is greater than his baseline of around 1.4.? He continued to have difficulties urinating and his bladder was scanned showing around 280ml.? Nixon cath was ordered to relieve the retention.? EKG showed sinus bradycardia similar to his previous.? CXR was unremarkable. He was admitted to the floor for observation. Review of Systems General: Reports: 10 or more systems reviewed and unremarkable except in HPI and below Const: Denies: fever(s) or chills Card: Denies: chest pain Resp: Denies: dyspnea GI: Reports: abdominal pain; Denies: nausea or vomiting : Reports: difficulty urinating and difficulty starting urination Home Meds/Allergies Home Medications and Allergies Home Medications Medication Instructions Recorded Confirmed Type clopidogrel 75 mg tablet 75 mg PO QAM 09/13/19 02/28/23 History levothyroxine 50 mcg tablet 50 mcg PO QAM 09/13/19 02/28/23 History acetaminophen 500 mg tablet 1,000 mg PO Q4H PRN Pain 12/23/21 02/28/23 History nitroglycerin 0.4 mg sublingual 0.4 mg sublingual Q5M PRN Chest 12/23/21 02/28/23 History tablet (Nitrostat) Pain cetirizine 10 mg tablet 10 mg PO DAILY PRN Allergic 02/28/23 02/28/23 History Symptoms gabapentin 100 mg capsule 100 mg PO DAILY 02/28/23 02/28/23 History isosorbide mononitrate 60 mg 60 mg PO DAILY 02/28/23 02/28/23 History tablet,extended release 24 hr tamsulosin 0.4 mg capsule 0.4 mg PO DAILY 02/28/23 02/28/23 History Allergies Allergy/AdvReac Type Severity Reaction Status Date / Time amlodipine Allergy pedal edema Verified 02/28/23 08:55 hydralazine AdvReac ADR-Headach Verified 02/28/23 08:55 e PFSH Acute PFSH: Medical History Atherosclerosis of coronary artery of [place] heart without angina pectoris Bilateral carotid artery stenosis BPH (benign prostatic hyperplasia) BPH loc w urin obs/LUTS Carotid artery stenosis Chronic migraine without aura, intractable, with status migrainosus Coronary artery disease CVA (cerebral vascular accident) GERD (gastroesophageal reflux disease) Hyperlipidemia Hypertension Leg edema Neurodegenerative gait disorder Osteoarthritis Sacroiliitis Urolithiasis Surgical History H/O lithotripsy History of heart artery stent x8 Family History Father , AT AGE 72 CAD (coronary artery disease) Stroke Mother , AT AGE 78 CAD (coronary artery disease) Other Hyperlipidemia Hypertension Denies family history of Diabetes Clotting disorder Dementia Chronic kidney disease (CKD) Anesthesia complication Bleeding disorder Lung disease Cancer Social History Smoking and tobacco status: never smoked Alcohol intake: never Substance/Drug Use: never Adopted: No Caregiver/support person: No Lives independently: Yes Marital status: / Current occupational status: retired Vitals/I&O/Wt Last Vital Signs Temp 97.7 F 03/01/23 11:07 Pulse 78 03/01/23 15:17 Resp 16 03/01/23 11:07 BP 162/78 03/01/23 11:07 Pulse Ox 93 03/01/23 11:07 O2 Del Method Room Air 03/01/23 11:07 03/01/23 03/01/23 03/01/23 06:59 14:59 22:59 Intake Total 480 / 480 Output Total 1150 / 1150 700 / 700 Balance -1150 / -790 -220 / -220 Weight last 48 hrs Weight 172 lb 12.8 oz Weight 165 lb Physical Exam Narrative: General: Cooperative patient in no apparent distress. Well developed. HEENT: Normocephalic, Atraumatic. External ears normal. Nasal passages patent without drainage. MMM. Heart: RRR. Resp: LCTA. No respiratory distress, no use of accessory muscles. Abd: Soft, non-tender. Non-distended. Extremities: No edema. Skin: No rash or lesions on exposed areas. Neuro: No focal motor or sensory loss. Gait is normal. Urinary Catheter Management: Nixon: Cath Placed During This Visit: yes Reason for Continuing Indwelling Catheter: Acute Urinary Retention or Obstruction Urinary Catheter Date of Insertion: 02/28/23 Urinary Catheter Time of Insertion: 14:06 Hospital Course Admission Diagnoses BPH with LUTS, acute urinary retention, hypertension Hospital Course Patient was admitted and a Nixon catheter was started. Initially around 300 mils of urine was removed from the bladder. Nixon was left in overnight to allow bladder to rest. A CT of the abdomen did demonstrate lobulated prostate, with inflammation. No renal stones were noted within the ureters. PSA was within normal range. Patient was started on doxazosin as well as losartan. His initial blood pressure showed systolic range into the 200s. This improved after starting medications. His blood pressures were a little elevated at time of discharge, medications were sent to the pharmacy, but patient states that he plans to discuss this with his primary care physician before he starts any new medications. Nixon catheter was removed on day 2 of stay. He was able to void 2 additional times prior to discharge. He reports that he feels he is in his normal state of health at time of discharge. SSS Data Data Completed and Pending: Completed Studies During Hospitalization Category Date Time Status CT abdomen pelvis wo con [id number] Stat Cat Scan 02/28/23 12:55 Completed XR chest 1V anne ble [id number] Stat Exams 02/28/23 08:50 Completed Pending at discharge Category Date Time Status Urine Culture [facility] 02/28/23 18:15 Received Diagnoses at Discharge Discharge Diagnosis (1) Chronic kidney disease (CKD): Status: Acute (2) Cervicalgia: Status: Acute (3) Carotid artery stenosis: Status: Acute (4) Urolithiasis: Status: Acute (5) Hypertension: Status: Acute (6) BPH loc w urin obs/LUTS: Status: Acute (7) Bradycardia: Status: Acute Discharge Plan Discharge Patient Disposition: Home Condition: Stable Prescriptions: New Cardura 2 mg tablet 2 mg PO .qhs Qty: 30 0RF losartan 100 mg tablet 100 mg PO DAILY Qty: 30 0RF tramadol 50 mg tablet 25 mg PO Q8H PRN (Reason: pain) Qty: 14 0RF tramadol 50 mg tablet 50 mg PO BID PRN (Reason: pain) Qty: 14 0RF Continued clopidogrel 75 mg tablet 75 mg PO QAM levothyroxine 50 mcg tablet 50 mcg PO QAM isosorbide mononitrate 60 mg tablet extended release 24 hr 60 mg PO DAILY tamsulosin 0.4 mg capsule 0.4 mg PO DAILY gabapentin 100 mg capsule 100 mg PO DAILY cetirizine 10 mg Tablet 10 mg PO DAILY PRN (Reason: Allergic Symptoms) acetaminophen 500 mg Tablet 1,000 mg PO Q4H PRN (Reason: Pain) nitroglycerin [Nitrostat] 0.4 mg Tablet, Sublingual 0.4 mg SUBLINGUAL Q5M PRN (Reason: Chest Pain) Rx Instructions: do not exceed 3 doses per episode Discontinued amlodipine 5 mg tablet 5 mg PO DAILY losartan-hydrochlorothiazide 100-25 mg Tablet 1 tab PO DAILY Discharge Orders: Discharge Order (Routine); Ordered 03/01/23 Ordered By: Jorge Pierce Referrals: Tam Farah DO [Primary Care Provider] - Discharge Diet: Usual diet Discharge Activity: Increase activity as tolerated Patient Instructions: Doxazosin (By mouth) (Mandie Lockwood XL), Hydralazine (By mouth), Tramadol (By mouth), Losartan (By mouth), Syncope in Older Adults (DC), Opioid Safety, Pain Management Activity Restrictions/Additional Instructions: You are seen today for elevated blood pressure. Stop the losartan hydrochlorothiazide and instead take plain losartan 100 mg daily. We will also add hydralazine 25 3 times daily and Cardura 2 mg nightly. Continue your other previously prescribed medications and follow-up with your doctor to recheck your blood pressure within the week. Attestations Medical Necessity Statement*: Patient was observed overnight for acute urinary retention. His symptoms resolved and he was discharged on day 2. Time Spent in Patient Care*: less than 30 min Specific Discharge Activities: Specific discharge activities: educating patient, educating and/or supporting family/caregiver and documenting/other paperwork Status at Discharge: Cognitive status at discharge: cognitively intact , Behavioral status at discharge: cooperative , Quality Metrics Clinical Quality Measures: [ No reported AMI, CVA or VTE this stay ] Coding Level of Care Code Acute Code for Chg Fwd Straight Forward/Low MDM includes number and complexity of problems actively addressed during encounter, amount and/or complexity of data reviewed/ordered and described risk of complication, morbidity or mortality of management as documented Diagnoses Chronic kidney disease (CKD) N18.9 Cervicalgia M54.2 Carotid artery stenosis I65.29 Urolithiasis N20.9 Hypertension I10 BPH loc w urin obs/LUTS N40.1 Bradycardia R00.1
== END 2023-03-01 15:18 | disposition home health service (06) ==
LOC: ER 13:27 → MEDSURG 13:42
PROVIDERS: Admitting Provider Family Medicine; Emergency Provider Family Medicine; PCP Internal Medicine; Visit Provider Family Medicine
DX: N18.9 Chronic kidney disease, unspecified (principal); M54.2 Cervicalgia; I65.29 Occlusion and stenosis of unspecified carotid artery; N20.9 Urinary calculus, unspecified; I10 Essential (primary) hypertension; N40.1 Benign prostatic hyperplasia with lower urinary tract symptoms; N13.8 Other obstructive and reflux uropathy; R00.1 Bradycardia, unspecified; E03.9 Hypothyroidism, unspecified; E78.5 Hyperlipidemia, unspecified; R33.9 Retention of urine, unspecified; Z86.73 Personal history of transient ischemic attack (TIA), and cerebral infarction without residual deficits
CPT/HCPCS: 36415; 51702; 51798; 71045; 74176; 80053; 81001; 84153; 84484; 85025; 87086; 93005; 96374; 96375; 96376; 99285; G0378; J0360; J3490

== ENCOUNTER 2023-07-02 09:01 | Emergency (ER) | payer MEDICARE, OTHER, MEDICAID, SELFPAY ==
[2023-07-02 09:02] VITALS: BMI 21.4
[2023-07-02 09:04] VITALS: BP 176/96; PULSE 104; RESP 16; TEMP 37.1; O2SAT 98
--- NOTE | 2023-07-02 09:09 | XRR_ITS ---
PROCEDURE INFORMATION: Exam: XR Lumbosacral Spine Exam date and time: 07/02/2023 9:19 AM Age: 88 years old Clinical indication: Injury or trauma; Fall; Blunt trauma (contusions or hematomas); Additional info: Fall pain TECHNIQUE: Imaging protocol: Radiologic exam of the lumbosacral spine. Views: 2 or 3 views. Total images: 4 COMPARISON: 1. CT lumbar spine wo con* [id number] 06/15/2018 8:[address] abdomen pelvis wo con [id number] 02/28/2023 1:27 PM FINDINGS: Bones/joints: Diffuse osteopenia noted. Mild compression fracture at L1 age indeterminate but appears acute to subacute. No evidence of spondylolysis nor spondylolisthesis. Soft tissues: Unremarkable. Other findings: No retropulsed fragment detected. Posterior elements are unremarkable. XR/XR lumbar spine 2-3V* [id number] IMPRESSION: Mild compression fracture at L1 age indeterminate but appears acute to subacute. This was not present on most recent prior CT from February 28, 2023.
--- NOTE | 2023-07-02 09:09 | XRR_ITS ---
PROCEDURE INFORMATION: Exam: XR Thoracic Spine Exam date and time: 07/02/2023 9:20 AM Age: 88 years old Clinical indication: Injury or trauma; Fall; Blunt trauma (contusions or hematomas); Additional info: Fall pain TECHNIQUE: Imaging protocol: Radiologic exam of the thoracic spine. Views: 3 views. Total images: 2 COMPARISON: 1. CT thoracic spin wo con* [id number] 06/15/2018 8:[address] abdomen pelvis wo con [id number] 02/28/2023 1:27 PM FINDINGS: Bones/joints: Diffuse osteopenia noted. Mild central compression at T11 unchanged from prior exam. Mild central compression at L2 unchanged from prior exam. No evidence of spondylolysis nor spondylolisthesis. Soft tissues: Unremarkable. Heart/Mediastinum: Calcified mediastinal and hilar nodes noted. Coronary stents noted. Vasculature: Moderate atherosclerotic disease is evident. Other findings: Posterior elements are unremarkable. XR/XR thoracic spine 2V [id number] IMPRESSION: No acute spinal pathology.
--- NOTE | 2023-07-02 09:13 | W.ED.BACK ---
HPI - Back Pain/Injury General: Chief Complaint: Back Pain/Injury Stated Complaint: back pain from fall yesterday Time Seen by Provider: 07/02/23 09:03 History of Present Illness: Patient brought to the ER by EMS for evaluation of back pain after fall. Patient fell at 4 PM yesterday and landed flat on his back. Patient did not lose consciousness or blackout patient denies any other pain besides his back. Patient did not have this type of back pain before the fall. Pain is at the mid thoracic/lumbar junction. Does not radiate is worse with movement. Review of Systems General: Reports: 10 or more systems reviewed and unremarkable except in HPI and below PFSH ED PFSH: Medical History Carotid artery stenosis Atherosclerosis of coronary artery of [place] heart without angina pectoris Leg edema BPH loc w urin obs/LUTS Hypertension Coronary artery disease Hyperlipidemia CVA (cerebral vascular accident) GERD (gastroesophageal reflux disease) Bilateral carotid artery stenosis Osteoarthritis Urolithiasis BPH (benign prostatic hyperplasia) Neurodegenerative gait disorder Sacroiliitis Chronic migraine without aura, intractable, with status migrainosus Surgical History History of heart artery stent x8 H/O lithotripsy Family History Father , AT AGE 72 CAD (coronary artery disease) Stroke Mother , AT AGE 78 CAD (coronary artery disease) Other Hyperlipidemia Hypertension Denies family history of Diabetes Clotting disorder Dementia Chronic kidney disease (CKD) Anesthesia complication Bleeding disorder Lung disease Cancer Social History Smoking and tobacco/nicotine status: never used tobacco/nicotine Alcohol intake: never Substance/Drug Use: never Adopted: No Caregiver/support person: No Lives independently: Yes Marital status: / Current occupational status: retired Physical Exam Const: COMMON NORMALS: no acute distress, average body habitus, patient oriented x3, no limitations, healthy appearing, alert and well nourished HENMT: COMMON NORMALS: normocephalic, atraumatic, hearing grossly normal bilaterally, external ears normal, Normal external nose present, moist oral mucous membranes and oropharynx normal HEAD & SCALP: normocephalic and atraumatic NOSE: Normal external nose present EXTERNAL EAR: Yes external ears normal Neck/C-Spine: COMMON NORMALS: full ROM, no lymphadenopathy, supple, no meningeal signs, no JVD and Thyroid normal THYROID: Thyroid normal Chest: COMMONS NORMALS: normal inspection of the chest and normal palpation of entire chest wall Resp: COMMON NORMALS: normal respiratory effort, No retractions, No use of accessory muscles and clear to auscultation bilaterally AUSCULTATION: clear to auscultation bilaterally Cardio: COMMON NORMALS: no JVD, regular rate, regular rhythm, S1 normal heart sound present, S2 normal heart sound present, No gallops present (Cardio), No clicks present (Cardio), No murmurs present (Cardio) and No rub (Cardio) RATE: regular rate RHYTHM: regular rhythm HEART SOUNDS: S1 normal heart sound present and S2 normal heart sound present GI: COMMON NORMALS: Normal to inspection, nondistended, normoactive bowel sounds present, Soft to palpation, non-tender, No hepatosplenomegaly present and no masses PALPATION: Yes Soft to palpation and Yes No hepatosplenomegaly present : COMMON NORMALS: Yes no CVA tenderness BLADDER/KIDNEY EXAM: Yes no CVA tenderness Back/Pelvis: COMMON NORMALS: no CVA tenderness and thoracic and lumbar spine normal to inspection; negative for no thoracic nor lumbar tenderness (Tender at the thoracolumbar junction.) Neuro: COMMON NORMALS: patient oriented x3 SENSORIUM/ORIENTATION: Yes alert MENINGEAL SIGNS: Yes no meningeal signs Course Vital Signs: Vital signs: Vital Signs Temperature 98.7 F 07/02/23 09:04 Pulse Rate 104 H 07/02/23 09:04 Respiratory Rate 16 07/02/23 09:04 Blood Pressure 176/96 07/02/23 09:04 Pulse Oximetry 98 07/02/23 09:04 Oxygen Delivery Me thod Room Air 07/02/23 09:04 MDM - Back Pain/Injury Medical Decision Making Patient had x-rays of his lumbar and thoracic spine. Thoracic spine was negative for acute pathology lumbar spine showed possible mild compression fracture at L1 age-indeterminate. Patient will be discharged home on hydrocodone and should follow-up with his family practice doc within next 7 to 10 days for further evaluation and treatment. Differential Diagnosis Likely thoracic back pain; Unlikely lumbar radiculopathy, sciatica, strain of lumbar region, renal colic, pyelonephritis, AAA or discitis Medical Records I reviewed the patient's medical records. Labs I reviewed the patient's lab results. Radiology Impressions Lumbar Spine X-Ray 07/02/23 09:09 IMPRESSION: Mild compression fracture at L1 age indeterminate but appears acute to subacute. This was not present on most recent prior CT from February 28, 2023. Thoracic Spine X-Ray 07/02/23 09:09 IMPRESSION: No acute spinal pathology. All radiology interpretation(s) finalized by discharge Discharge Plan Discharge Patient Disposition: Home Clinical Impression: Closed compression fracture of L1 vertebra Condition: Stable Prescriptions: No Action losartan-hydrochlorothiazide 100-25 mg tablet 1 tab PO DAILY Qty: 30 0RF clopidogrel 75 mg tablet 75 mg PO QAM levothyroxine 50 mcg tablet 50 mcg PO QAM isosorbide mononitrate 60 mg tablet extended release 24 hr 60 mg PO DAILY tamsulosin 0.4 mg capsule 0.4 mg PO DAILY gabapentin 100 mg capsule 100 mg PO DAILY cetirizine 10 mg Tablet 10 mg PO DAILY PRN (Reason: Allergic Symptoms) Cardura 2 mg tablet 2 mg PO .qhs Qty: 30 0RF tramadol 50 mg tablet 25 mg PO Q8H PRN (Reason: pain) Qty: 14 0RF tramadol 50 mg tablet 50 mg PO BID PRN (Reason: pain) Qty: 14 0RF acetaminophen 500 mg Tablet 1,000 mg PO Q4H PRN (Reason: Pain) nitroglycerin [Nitrostat] 0.4 mg Tablet, Sublingual 0.4 mg SUBLINGUAL Q5M PRN (Reason: Chest Pain) Rx Instructions: do not exceed 3 doses per episode Discharge Orders: Discharge ED (Routine); Ordered 07/02/23 Ordered By: Walt Thrasher Referrals: Tam Farah DO [Primary Care Provider] - 1 week Patient Instructions: Opioid Safety, Pain Management, Vertebral Compression Fracture (ED) Activity Restrictions/Additional Instructions: Take the hydrocodone as instructed for pain. Please follow-up with your friend practitioner in the next 7 to 10 days for further evaluation and treatment. Coding Level of Care Code ED Transition Assistant for Rah Carter
[2023-07-02] MEDS: ketorolac 60 mg/2 mL INJ IM (09:37)
[2023-07-02 10:14] VITALS: PULSE 82; RESP 18; O2SAT 94
== END 2023-07-02 10:24 | disposition home or self-care (01) ==
PROVIDERS: Emergency Provider Emergency Medicine; PCP Internal Medicine
DX: S32.010A Wedge compression fracture of first lumbar vertebra, initial encounter for closed fracture (principal); Z79.02 Long term (current) use of antithrombotics/antiplatelets; I25.10 Atherosclerotic heart disease of native coronary artery without angina pectoris; I10 Essential (primary) hypertension; E78.5 Hyperlipidemia, unspecified; Z86.73 Personal history of transient ischemic attack (TIA), and cerebral infarction without residual deficits; W19.XXXA Unspecified fall, initial encounter
CPT/HCPCS: 72070; 72100; 96372; 99284; J1885

== ENCOUNTER → 2023-07-08 10:57 | Outpatient (BNVA) | payer MEDICARE, OTHER, MEDICAID, SELFPAY | PROVIDERS: PCP Internal Medicine; Visit Provider Physician Assistant | DX: S32.010A Wedge compression fracture of first lumbar vertebra, initial encounter for closed fracture; S22.080A Wedge compression fracture of T11-T12 vertebra, initial encounter for closed fracture; X58.XXXA Exposure to other specified factors, initial encounter; Z46.89 Encounter for fitting and adjustment of other specified devices; M54.59 Other low back pain | CPT/HCPCS: 72100; 97760; 99204; L0456 ==

== ENCOUNTER 2023-07-08 11:45 | Outpatient (CLI) | payer MEDICARE, OTHER, MEDICAID, SELFPAY | END 2023-07-08 11:46 | disposition home or self-care (01) | LOC: SPT 11:45 | PROVIDERS: PCP Internal Medicine; Visit Provider Physician Assistant | DX: Z46.89 Encounter for fitting and adjustment of other specified devices (principal); M54.59 Other low back pain | CPT/HCPCS: 97760; 99204; L0456 ==

== ENCOUNTER 2023-07-17 10:26 | Outpatient (CLI) | payer MEDICARE, OTHER, MEDICAID, SELFPAY ==
--- NOTE | 2023-07-17 11:00 | MR_ITS ---
WS: [id number] MRI LUMBAR SPINE NONCONTRAST HISTORY: lumbar pain COMPARISON: Lumbar spine radiograph 07/08/2023 TECHNIQUE: Sagittal and axial multisequence imaging is submitted. Degenerative cervical disc disease. C5 anterolisthesis by 5 mm. Slight increase in the lumbar lordosis. Acute compression fracture involving L1. 20% loss of height w ithout significant retropulsion. Marrow edema throughout a large portion of the vertebral body extend s into the posterior elements bilaterally. Disc bases are otherwise mildly narrowed and desiccated. Conus terminates normally at L1. L1-L2: Very mild annular disc bulging encroaching upon the ventral thecal sac. Small amount of fluid in the facet joints, LEFT greater than RIGHT. No high-grade cord compression. Mild disc encroachment LEFT foramen. L2-L3: Mild annular disc bulging effacing the ventral CSF and deform the thecal sac. Ligamentum flavu m and facet arthritis. Fluid in the facet joints. There is disc contacting the traversing L3 nerve ro ots. Mild central, bilateral subarticular recess and foraminal stenosis. L3-L4: Mild annular disc bulging and osteophytic ridging with facet and ligamentum flavum hypertrophy . Disc encroaches upon the traversing L4 nerve roots, RIGHT greater than LEFT. Moderate central and b ilateral subarticular recess stenosis and mild foraminal stenosis. L4-L5: Diffuse annular disc bulging, osteophytic ridging with ligamentum flavum and facet arthritis. Disc contacts the traversing L5 nerve roots, RIGHT greater than LEFT. Moderate central, bilateral sub articular recess and foraminal stenosis. L5-S1: No stenosis. Ectatic abdominal aorta. IMPRESSION: 1. Acute 20% L1 compression fracture. Marrow edema extends into the pedicles, LEFT greater than RIGH T. No retropulsion. 2. L1-2: Mild disc encroachment upon the LEFT foramen. 3. L2-3: Mild central, bilateral subarticular recess and foraminal stenosis. 4. L3-4: Moderate central, bilateral subarticular recess and mild foraminal stenosis. 5. L4-5: Moderate central, bilateral subarticular recess and foraminal stenosis. Disc contacts the t raversing L5 nerve roots, RIGHT greater than LEFT.
== END 2023-07-17 10:27 | disposition home or self-care (01) ==
LOC: RAD 10:26
PROVIDERS: PCP Internal Medicine; Visit Provider Physician Assistant
DX: S32.019A Unspecified fracture of first lumbar vertebra, initial encounter for closed fracture (principal); M48.061 Spinal stenosis, lumbar region without neurogenic claudication; X58.XXXA Exposure to other specified factors, initial encounter
CPT/HCPCS: 72148

== ENCOUNTER 2023-07-21 11:53 | Inpatient (IN) | payer MEDICARE, OTHER, MEDICAID, SELFPAY ==
[2023-07-21] VITALS (12 sets, daily range): BP systolic 111–151; BP diastolic 69–88; PULSE 66–104; RESP 17–20; TEMP 36.7–36.8; O2SAT 92–97; BMI 23.3
--- NOTE | 2023-07-21 11:58 | ECG_ITS ---
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 Measurements Intervals [place] Rate: 68 P: 39 CA: 173 QRS: 60 QRSD: 99 T: 0 QT: 246 QTc: 262 Interpretive Statements SINUS RHYTHM SEPTAL MYOCARDIAL INFARCTION , PROBABLY OLD [40+ ms Q WAVE IN V1/V2] Compared to ECG 02/28/2023 19:36:41 Myocardial infarct finding now present T-wave abnormality no longer present Electronically Signed On 07-21-2023 19:36:13 [facility] by Tree Melton M.D. [id number]
--- NOTE | 2023-07-21 11:59 | W.ED.SYNCOPE ---
HPI - Syncope General: Chief Complaint: Syncope Stated Complaint: Syncopal episode Time Seen by Provider: 07/21/23 11:54 Source: patient Mode of arrival: ambulatory History of Present Illness: 88-year-old male presents emergency room via EMS he was sitting in a chair at home this actually passed out is that his eyes rolled back his head he was unresponsive and shaking for a minute or 2 recovered he is awake and alert. He denies any chest pain he has previously had a stroke his dysarthria but he is at his normal baseline. No history of seizures. This did not occur immediately after standing up or with any exertion or associated with any chest pain. MD complaint: loss of consciousness Onset (ago): minute(s) Description of event: tonic-clonic movements Prodromal symptoms: none Witnessed: Yes - by Bystander Context: at rest Injuries sustained associated with event: none Associated symptoms: Reports weakness; Deny abdominal pain, chest pain, fever(s), headache(s), lightheadedness, nausea, short of breath or vertigo Treatments prior to arrival: none Review of Systems Const: Denies: fever(s) or chills Card: Denies: chest pain or lightheadedness Resp: Denies: dyspnea GI: Denies: abdominal pain or nausea : Denies: dysuria, urinary frequency or urinary urgency Musc: Denies: neck pain or back pain Skin/Breast: Denies: rash Neuro: Denies: headache(s) or vertigo [facility] ED PFSH: Medical History Carotid artery stenosis Atherosclerosis of coronary artery of [place] heart without angina pectoris Leg edema BPH loc w urin obs/LUTS Hypertension Coronary artery disease Hyperlipidemia CVA (cerebral vascular accident) GERD (gastroesophageal reflux disease) Bilateral carotid artery stenosis Osteoarthritis Urolithiasis BPH (benign prostatic hyperplasia) Neurodegenerative gait disorder Sacroiliitis Chronic migraine without aura, intractable, with status migrainosus Surgical History History of heart artery stent x8 H/O lithotripsy Family History Father , AT AGE 72 CAD (coronary artery disease) Stroke Mother , AT AGE 78 CAD (coronary artery disease) Other Hyperlipidemia Hypertension Denies family history of Diabetes Clotting disorder Dementia Chronic kidney disease (CKD) Anesthesia complication Bleeding disorder Lung disease Cancer Social History Smoking and tobacco/nicotine status: never used tobacco/nicotine Alcohol intake: never Substance/Drug Use: never Adopted: No Caregiver/support person: No Lives independently: Yes Marital status: / Current occupational status: retired Physical Exam Const: COMMON NORMALS: no acute distress GENERAL APPEARANCE: cooperative and comfortable ORIENTATION/CONSCIOUSNESS: Yes awake, Yes oriented to person, Yes oriented to place and Yes oriented to time HENMT: COMMON NORMALS: normocephalic, atraumatic and hearing grossly normal bilaterally HEAD & SCALP: normocephalic and atraumatic Resp: COMMON NORMALS: normal respiratory effort, No retractions, No use of accessory muscles and clear to auscultation bilaterally AUSCULTATION: clear to auscultation bilaterally Cardio: COMMON NORMALS: regular rate, regular rhythm and No murmurs present (Cardio) RATE: regular rate RHYTHM: regular rhythm GI: COMMON NORMALS: Soft to palpation and No hepatosplenomegaly present AUSCULTATION: Yes normoactive bowel sounds PALPATION: Yes Soft to palpation, No Tenderness to palpation present (GI), No Guarding due to palpation present (GI) and Yes No hepatosplenomegaly present Extremity: COMMON NORMALS: normal to inspection, capillary refill normal, no clubbing, cyanosis or edema, no calf tenderness and no pedal edema Neuro: SENSORIUM/ORIENTATION: Yes oriented to person, Yes oriented to place and Yes oriented to time Skin: COMMON NORMALS: no rashes or lesions noted GENERAL SKIN EXAM: no rashes or lesions noted Course Vital Signs: Vital signs: Vital Signs Temperature 98.2 F 07/21/23 12:02 Pulse Rate 92 07/21/23 16:00 Respiratory Rate 18 07/21/23 16:00 Blood Pressure 121/88 07/21/23 16:00 Pulse Oximetry 92 07/21/23 16:00 Oxygen Delivery Me thod Room Air 07/21/23 12:02 MDM - Syncope Medical Decision Making Unexplained syncope while at rest. Possibly seizure. Lactic acid is elevated again to decrease troponins are trending negative EKGs did not show any acute changes. Discussed with hospitalist placed on observation Medical Records I reviewed the patient's medical records. Lab Data I reviewed the patient's lab results. 07/21/23 11:35 07/21/23 11:35 Laboratory Results WBC 8.96 10^3/uL (3.29-11.43) 07/21/23 11:35 RBC 5.54 10^6/uL (3.85-5.65) 07/21/23 11:35 Hgb 17.30 g/dL (11.27-16.99) H 07/21/23 11:35 Hct 51.2 % (37-53) 07/21/23 11:35 MCV 92.4 fl (82-101) 07/21/23 11:35 MCH 31.2 pg (27-33) 07/21/23 11:35 MCHC 33.8 g/dL (30-55) 07/21/23 11:35 RDW 13.0 % (12.1-15.1) 07/21/23 11:35 Plt Count 251 10^3/cmm (157-399) 07/21/23 11:35 MPV 9.6 fL (7.4-10.4) 07/21/23 11:35 Neut % (Auto) 80.3 % 07/21/23 11:35 Lymph % (Auto) 13.8 % 07/21/23 11:35 Gaston % (Auto) 3.8 % 07/21/23 11:35 Eos % (Auto) 0.8 % 07/21/23 11:35 Baso % (Auto) 0.6 % 07/21/23 11:35 Neut # (Auto) 7.20 10^3/uL (1.8-7.7) 07/21/23 11:35 Lymph # (Auto) 1.2 10^3/uL (0.8-4.8) 07/21/23 11:35 Gaston # (Auto) 0.3 10^3/uL (0.2-0.9) 07/21/23 11:35 Eos # (Auto) 0.1 10^3/uL (0.0-0.8) 07/21/23 11:35 Baso # (Auto) 0.1 10^3/uL (0.0-0.1) 07/21/23 11:35 Nucleated RBC % (auto) 0 % 07/21/23 11:35 Nucleated RBCs # 0.0 /100WBC 07/21/23 11:35 Sodium 137 mmol/L (136-145) 07/21/23 11:35 Potassium 3.5 mmol/L (3.5-5.1) 07/21/23 11:35 Chloride 95 mmol/L (98-107) L 07/21/23 11:35 Carbon Dioxide 23 mmol/L (22-29) 07/21/23 11:35 Anion Gap 22.5 (5-19) H 07/21/23 11:35 BUN 47 mg/dL (8-23) H 07/21/23 11:35 Creatinine 1.9 mg/dL (0.7-1.2) H 07/21/23 11:35 GFR Calculation Not Reportable 07/21/23 11:35 Glucose 177 mg/dL (65-115) H 07/21/23 11:35 Calculated Osmolality 301 mOsm/kg (285-295) H 07/21/23 11:35 Lactic Acid 3.0 mmol/L (0.5-2.2) H 07/21/23 11:35 Lactic Acid (Sepsis) 2.8 mmol/L (0.5-2.2) H 07/21/23 14:46 Calcium 10.1 mg/dL (8.5-10.5) 07/21/23 11:35 Total Bilirubin 0.4 mg/dL (0.15-1.2) 07/21/23 11:35 AST 30 U/L (0-40) 07/21/23 11:35 ALT 21 U/L (0-41) 07/21/23 11:35 Alkaline Phosphatase 161 U/L (40-130) H 07/21/23 11:35 Creatine Kinase 54 U/L (39-308) 07/21/23 11:35 Troponin T Baseline 32 ng/L (0-15) H 07/21/23 11:35 Troponin T 120 Minute 28.14 ng/L (0-15) H 07/21/23 13:42 Delta Troponin T -3.86 ABS# (0-10) L 07/21/23 13:42 Total Protein 8.2 g/dL (6.6-8.7) 07/21/23 11:35 Albumin 4.5 g/dL (3.5-5.2) 07/21/23 11:35 Globulin 3.7 g/dL (1.3-4.6) 07/21/23 11:35 Coronavirus 229E (PCR) Not detected (NOT DETECT) 07/21/23 12:25 SARS-CoV-2 (PCR) Not detected (NOT DETECT) 07/21/23 12:25 All radiology interpretation(s) finalized by discharge Discharge Plan Discharge Patient Disposition: Admitted As Inpatient Admit Provider: Chiquita Cooney Clinical Impression: Syncope, Hypertension Condition: Stable Coding Level of Care Code ED Slip Laster for Rah Carter
--- NOTE | 2023-07-21 12:07 | CT_ITS ---
WS: [id number] CT HEAD NONCONTRAST HISTORY: new onset seizure TECHNIQUE: Contiguous axial imaging performed through the brain in 2.5 mm imaging. Bone and soft tiss ue windows. Sagittal and coronal reformats reviewed. All CT scans at [facility] use at least one of these dose optimization techniques: automated exposure control; mA and/or kV adjustment per pa tient size (includes targeted exams where dose is matched to clinical indication); or iterative recon struction. DLP: 1119.09 mGy.cm COMPARISON: 06/02/2022 No acute intracranial hemorrhage, midline shift or mass effect. Moderate volume loss and small vessel ischemic disease. Similar to the prior study. Small lacunar inf arcts in the basal ganglia. Moderate bilateral cerebellar atrophy and volume loss. Ventricles: Normal size with no hydrocephalus. No intra displacement of the cerebellar tonsils. Paranasal sinuses: As visualized are clear. Mastoid air cells: Well pneumatized. Calvarium and scalp: Skull is intact with no soft tissue edema or swelling. IMPRESSION: 1. No acute intracranial hemorrhage or edema. 2. Moderate atrophy and small vessel ischemic disease. Similar to the prior study of 06/02/2022.
[2023-07-21 12:14] LABS: Basophils # 0.1 10^3/uL (0.0-0.1); Basophils % 0.6 %; Eosinophils # 0.1 10^3/uL (0.0-0.8); Eosinophils % 0.8 %; Hematocrit 51.2 % (37-53); Lymphocytes # 1.2 10^3/uL (0.8-4.8); Lymphocytes % 13.8 %; Mean Corpuscular HGB Conc 33.8 g/dL (30-55); Mean Corpuscular Hemoglobin 31.2 pg (27-33); Mean Corpuscular Volume 92.4 fl (82-101); Mean Platelet Volume 9.6 fL (7.4-10.4); Monocytes # 0.3 10^3/uL (0.2-0.9); Monocytes % 3.8 %; Neutrophils % 80.3 %; Nucleated Red Blood Cells % 0 %; Platelet Count 251 10^3/cmm (157-399); Red Blood Count 5.54 10^6/uL (3.85-5.65); White Blood Count 8.96 10^3/uL (3.29-11.43)
[2023-07-21 12:28] LABS: Creatine Phosphokinase 54 U/L (39-308)
[2023-07-21 12:29] LABS: Troponin(5th) Baseline 32 ng/L (0-15)
[2023-07-21 12:32] LABS: Alanine Aminotransferase 21 U/L (0-41); Albumin Level 4.5 g/dL (3.5-5.2); Alkaline Phosphatase 161 U/L (40-130); Blood Urea Nitrogen 47 mg/dL (8-23); Calcium 10.1 mg/dL (8.5-10.5); Carbon Dioxide 23 mmol/L (22-29); Chloride 95 mmol/L (98-107); Globulin 3.7 g/dL (1.3-4.6); Glucose 177 mg/dL (65-115); Osmolality Calculated 301 mOsm/kg (285-295); Sodium 137 mmol/L (136-145); Total Bilirubin 0.4 mg/dL (0.15-1.2); Total Protein 8.2 g/dL (6.6-8.7)
[2023-07-21 12:34] LABS: Anion Gap 22.5 (5-19); Aspartate Amino Transferase 30 U/L (0-40); Potassium 3.5 mmol/L (3.5-5.1)
--- NOTE | 2023-07-21 12:55 | XR_ITS ---
WS: [id number] PORTABLE CHEST HISTORY: dyspnea/cough COMPARISON: 02/28/2023 Lordotic positioning of the chest. Lungs are clear and well expanded. No pleural effusion or pneumothorax. Cardiac size: Normal. Mediastinum/Aorta: Mediastinal calcified lymph nodes. No osseous abnormality seen. IMPRESSION: Limited by suboptimal positioning. No acute cardiopulmonary disease.
[2023-07-21 13:57] LABS: Reflex Lactate Order REFLEX LACTIC ORDERD
[2023-07-21 14:07] LABS: Troponin 5 2HR 28.14 ng/L (0-15)
--- NOTE | 2023-07-21 14:10 | ECG_ITS ---
[facility] Test Date: 2023-07-21 Pat Name: Des Fuller Department: Room: Gender: Male Header Boss: : 1935 Requested By: Everardo Walden Order Number: [id number] Mar MD: Tree Melton M.D. Measurements Intervals [place] Rate: 82 P: 71 [place]: 175 QRS: 67 QRSD: 99 T: 36 QT: 367 QTc: 430 Interpretive Statements SINUS RHYTHM SEPTAL MYOCARDIAL INFARCTION , PROBABLY OLD [40+ ms Q WAVE IN V1/V2] Compared to ECG 07/21/2023 12:13:31 No significant changes Electronically Signed On 07-21-2023 19:42:40 FLAT FINISHER by Tree Melton M.D. [id number]
[2023-07-21 14:14] LABS: Adenovirus Not Detected (NOT DETECT); Chlamydia Pneumoniae Not Detected (NOT DETECT); Coronavirus 229E,HKU1,NL63,OC4 Not Detected (NOT DETECT); Human Metapneumovirus Not Detected (NOT DETECT); Human Rhinovirus/Enterovirus Not Detected (NOT DETECT); Influenza A Not Detected (NOT DETECT); Influenza A H1 Not Detected (NOT DETECT); Influenza A H1-2009 Not Detected (NOT DETECT); Influenza A H3 Not Detected (NOT DETECT); Influenza B Not Detected (NOT DETECT); Mycoplasma Pneumoniae Not Detected (NOT DETECT); Parainfluenza Virus Type 1 Not Detected (NOT DETECT); Parainfluenza Virus Type 2 Not Detected (NOT DETECT); Parainfluenza Virus Type 3 Not Detected (NOT DETECT); Parainfluenza Virus Type 4 Not Detected (NOT DETECT); Respiratory Syncytial Virus A Not Detected (NOT DETECT); Respiratory Syncytial Virus B Not Detected (NOT DETECT); SARS-COV-2 Not Detected (NOT DETECT)
[2023-07-21 14:19] LABS: Troponin 5 2HR Delta -3.86 ABS# (0-10)
[2023-07-21] MEDS: sodium chloride 0.9% 500 ML 999 ML IV (14:20)
--- NOTE | 2023-07-21 14:50 | PM.HP ---
Providers/Chief Complaint Admitting Physician: Chiquita Cooney MD Primary Care Provider: Tam Farah DO Chief Complaint: Syncopal episode History of Present Illness Mr Fuller is an 88 year old gentleman who presented to the emergency room with a chief complaint of passing out. After breakfast, he was sitting in a chair when he suddenly felt his vision going away . He thinks he almost lost consciousness but did reports he did not completely pass out. He did not injure himself. Again he was sitting in the chair. At that time he had a headache on the top of his head. Prior to this episode during breakfast he had some nausea and 1 episode of vomiting. He describes feeling numb all over his body when his vision was going out. Both his right arm and left arm along with right leg and left leg. He said he also hurts all over. By the time he got here he was feeling a bit better but he still does not feel very good overall. No reported fever. Denies any upper respiratory symptoms such as cough, runny nose or sore throat. He did have a fall a few weeks ago and was seen in the emergency room. He was found to have an acute L1 compression fracture. He was prescribed hydrocodone but reports that it caused significant constipation so he quit taking that. He got a refill when he was seen in orthopedic clinic but has been taking only Tylenol arthritis for pain. His last bowel movement was yesterday. Pain occurs in the lower part of his back and radiates down his legs and is worse with certain movements but he does report he has been able to dress himself recently. He was able to walk around some yesterday without a walker for the first time so overall he thinks he is improving. He had been prescribed a TLSO brace but states that it does not fit him well and he has not been using it. He has been having some cramping in his legs at times. In the past when he has had syncopal episodes he had been found to have bradycardia. None has been noted today. He did take his blood pressure medications as prescribed. On previous admissions he has typically had high blood pressure but today systolic pressures have ranged 90s to low 100s which is low for him. He was not noted to be orthostatic in the ER. Baseline troponin was 32. He had an elevated lactic acid without other indicators of acute infection. Given his advanced age, symptoms today and abnormal labs request was made for admission. He did receive some IV fluids in the emergency room. Again no loss of consciousness but he lost his vision. Pertinent past medical history includes known carotid disease for which he is followed by Dr. Machado. Has not been deemed an candidate for surgical intervention secondary to anticipated life expectancy and symptoms. Review of Systems General: Reports: Other (ROS as per HPI or as otherwise noted here) Medications/Allergies Home Medications Medication Instructions Recorded Confirmed Last Taken Type clopidogrel 75 mg tablet 75 mg PO QAM 09/13/19 07/21/23 06/01/22 History levothyroxine 50 mcg tablet 50 mcg PO QAM 09/13/19 07/21/23 06/01/22 History acetaminophen 500 mg tablet 1,000 mg PO Q4H PRN Pain 12/23/21 07/21/23 Unknown History nitroglycerin 0.4 mg sublingual 0.4 mg sublingual Q5M PRN Chest 12/23/21 07/21/23 Unknown History tablet (Nitrostat) Pain cetirizine 10 mg tablet 10 mg PO DAILY PRN Allergic 02/28/23 07/21/23 Unknown History Symptoms gabapentin 100 mg capsule 100 mg PO DAILY 02/28/23 07/21/23 Unknown History isosorbide mononitrate 60 mg 60 mg PO DAILY 02/28/23 07/21/23 Unknown History tablet,extended release 24 hr tamsulosin 0.4 mg capsule 0.4 mg PO DAILY 02/28/23 07/21/23 Unknown History losartan 100 1 tab PO DAILY #30 tabs 05/12/23 07/21/23 Unknown Rx mg-hydrochlorothiazide 25 mg tablet hydrocodone 5 mg-acetaminophen 325 1 tab PO Q4H PRN Lumbar and 07/08/23 07/21/23 Unknown Rx mg tablet Thoracic fracture pain 5 days #30 tabs doxazosin 2 mg tablet (Cardura) 2 mg PO QPM 07/21/23 07/21/23 Unknown History Allergies Allergy/AdvReac Type Severity Reaction Status Date / Time amlodipine Allergy pedal edema Verified 07/08/23 11:13 hydralazine AdvReac ADR-Headach Verified 07/08/23 11:13 e PFSH Acute PFSH: Medical History (Updated 07/21/23 @ 20:17 by Chiquita Cooney MD) Hypothyroidism Chronic kidney disease (CKD) Abnormal nuclear stress test Hypertension Coronary artery disease Hyperlipidemia CVA (cerebral vascular accident) GERD (gastroesophageal reflux disease) Bilateral carotid artery stenosis Osteoarthritis Urolithiasis BPH (benign prostatic hyperplasia) Neurodegenerative gait disorder Sacroiliitis Chronic migraine without aura, intractable, with status migrainosus Surgical History History of heart artery stent x8 H/O lithotripsy Family History Father , AT AGE 72 CAD (coronary artery disease) Stroke Mother , AT AGE 78 CAD (coronary artery disease) Other Hyperlipidemia Hypertension Denies family history of Diabetes Clotting disorder Dementia Chronic kidney disease (CKD) Anesthesia complication Bleeding disorder Lung disease Cancer Social History (Updated 07/21/23 @ 20:04 by Chiquita Cooney MD) Smoking and tobacco/nicotine status: never used tobacco/nicotine Alcohol intake: never Substance/Drug Use: never Additional social history: Girlfriend lives with him Adopted: No Caregiver/support person: No Lives independently: Yes Marital status: / Current occupational status: retired Vitals/I&O/Wt Last Vital Signs Temp 98.2 F 07/21/23 12:02 Pulse 83 07/21/23 14:30 Resp 19 H 07/21/23 14:30 BP 131/71 07/21/23 14:30 Pulse Ox 93 07/21/23 14:30 O2 Del Method Room Air 07/21/23 12:02 Physical Exam Narrative: Patient is awake and alert. History is obtained from him. Normocephalic. Extraocular movements are intact. Pupils are equally reactive. Nasopharynx is clear. Oropharynx is clear. Neck is supple. Lungs are clear to auscultation bilaterally. There is some upper airway wheezing that clears with clearing of his throat. Cardiovascular exam reveals a regular rhythm. Abdomen is soft, nontender with positive bowel sounds extremities there is no pitting edema or calf tenderness. Skin is dry with changes of chronic sun exposure. No areas of bruising noted. Speech is clear, face symmetric, handgrip is equal, strength equal at both distal lower extremities though straight leg raises elicit back pain appropriate for the fracture that is known. Data 07/21/23 11:35 07/21/23 11:35 Other Labs: Laboratory Results WBC 8.96 10^3/uL (3.29-11.43) 07/21/23 11:35 RBC 5.54 10^6/uL (3.85-5.65) 07/21/23 11:35 Hgb 17.30 g/dL (11.27-16.99) H 07/21/23 11:35 Hct 51.2 % (37-53) 07/21/23 11:35 MCV 92.4 fl (82-101) 07/21/23 11:35 MCH 31.2 pg (27-33) 07/21/23 11:35 MCHC 33.8 g/dL (30-55) 07/21/23 11:35 RDW 13.0 % (12.1-15.1) 07/21/23 11:35 Plt Count 251 10^3/cmm (157-399) 07/21/23 11:35 MPV 9.6 fL (7.4-10.4) 07/21/23 11:35 Neut % (Auto) 80.3 % 07/21/23 11:35 Lymph % (Auto) 13.8 % 07/21/23 11:35 [place] % (Auto) 3.8 % 07/21/23 11:35 Eos % (Auto) 0.8 % 07/21/23 11:35 Baso % (Auto) 0.6 % 07/21/23 11:35 Neut # (Auto) 7.20 10^3/uL (1.8-7.7) 07/21/23 11:35 Lymph # (Auto) 1.2 10^3/uL (0.8-4.8) 07/21/23 11:35 [place] # (Auto) 0.3 10^3/uL (0.2-0.9) 07/21/23 11:35 Eos # (Auto) 0.1 10^3/uL (0.0-0.8) 07/21/23 11:35 Baso # (Auto) 0.1 10^3/uL (0.0-0.1) 07/21/23 11:35 Nucleated RBC % (auto) 0 % 07/21/23 11:35 Nucleated RBCs # 0.0 /100WBC 07/21/23 11:35 Sodium 137 mmol/L (136-145) 07/21/23 11:35 Potassium 3.5 mmol/L (3.5-5.1) 07/21/23 11:35 Chloride 95 mmol/L (98-107) L 07/21/23 11:35 Carbon Dioxide 23 mmol/L (22-29) 07/21/23 11:35 Anion Gap 22.5 (5-19) H 07/21/23 11:35 BUN 47 mg/dL (8-23) H 07/21/23 11:35 Creatinine 1.9 mg/dL (0.7-1.2) H 07/21/23 11:35 GFR Calculation Not Reportable 07/21/23 11:35 Glucose 177 mg/dL (65-115) H 07/21/23 11:35 Calculated Osmolality 301 mOsm/kg (285-295) H 07/21/23 11:35 Lactic Acid 3.0 mmol/L (0.5-2.2) H 07/21/23 11:35 Calcium 10.1 mg/dL (8.5-10.5) 07/21/23 11:35 Total Bilirubin 0.4 mg/dL (0.15-1.2) 07/21/23 11:35 AST 30 U/L (0-40) 07/21/23 11:35 ALT 21 U/L (0-41) 07/21/23 11:35 Alkaline Phosphatase 161 U/L (40-130) H 07/21/23 11:35 Creatine Kinase 54 U/L (39-308) 07/21/23 11:35 Troponin T Baseline 32 ng/L (0-15) H 07/21/23 11:35 Troponin T 120 Minute 28.14 ng/L (0-15) H 07/21/23 13:42 Delta Troponin T -3.86 ABS# (0-10) L 07/21/23 13:42 Total Protein 8.2 g/dL (6.6-8.7) 07/21/23 11:35 Albumin 4.5 g/dL (3.5-5.2) 07/21/23 11:35 Globulin 3.7 g/dL (1.3-4.6) 07/21/23 11:35 Coronavirus 229E (PCR) Not detected (NOT DETECT) 07/21/23 12:25 SARS-CoV-2 (PCR) Not detected (NOT DETECT) 07/21/23 12:25 Previous Laboratory Tests 03/01/23 05:20 BUN 37 H Creatinine 2.0 H A&P Assessment and plan (1) Syncope: Presenting complaint from ER that actually sounds more presyncopal. Primarily had a near blackout of his vision along with headache. Amaurosis fugax or other cerebralvascular or cardiovascular incident is within differential but could just as easily be reaction to pain from his back or even a vasovagal event from the preceding episode of vomiting during his breakfast. He has a history of bradycardia in the past that could also be a contributing factor though has not been noted today. Blood pressures are on the lower side for him, looking back at old records, but was not orthostatic. Migraine variant is another consideration but no prior history of such.No definite evidence of infection but does have increased lactic acid. (2) Carotid artery stenosis: Bilateral carotid artery stenosis with severe right-sided stenosis identified in December 2021. At that time left side was moderate. Has been followed by Dr. Machado and given his age of 88 and anticipated life expectancy has not been deemed a candidate for surgical intervention and has been managed medically with dual antiplatelet therapy and statin therapy. His current medication list does not include aspirin nor statin anymore. His presentation today may very well be related to this. Qualifiers: Laterality: bilateral Qualified Code(s): I65.23 - Occlusion and stenosis of bilateral carotid arteries (3) Elevated lactic acid level: Currently of unclear clinical significance. May be secondary to renal dysfunction, infection that is not evident at this point in time, trauma from recent fall or other abnormalities. (4) Traumatic compression fracture of L1 lumbar vertebra: Status post recent fall, being followed at Ortho spine clinic. Taking Tylenol arthritis for pain. Not tolerating stronger medicine due to constipation and did not tolerate TLSO brace that was prescribed. He says he has had benefit from physical therapy in the past. Qualifiers: Encounter type: subsequent encounter (5) Frequent falls: I suspect reason for falls is multifactorial from loss of muscle and sensory deficits plus or minus effective variable blood pressures and potentially medications. Has a walker which she uses at home. (6) Atherosclerosis of coronary artery of [place] heart without angina pectoris: Elevated baseline troponin currently of unclear significance. No reports of chest pain. No acute EKG changes. Has required multiple interventions in the past. (7) Bradycardia: Has had previously as a potential cause of syncope. Not noted this admission thus far but something to be on the look out for as a potential correctable etiology of presentation. (8) Hypertension: Primary hypertension. Chronically on losartan/hydrochlorothiazide as well as isosorbide. Has doxazosin also for BPH. Currently blood pressures are at the lower range of normal and with recurrent falls probably lower than I would like to see for him, though I have to weigh risk and benefits given other comorbid conditions. He was not orthostatic however. (9) Chronic kidney disease (CKD): Looks to be stage IIIb chronically. Near baseline. (10) BPH loc w urin obs/LUTS: Chronically on tamsulosin and doxazosin, symptoms well-managed currently per patient (11) Hypothyroidism: Acquired, chronically on levothyroxine Plan Generalized weakness Advanced age Observation admission for now Serial neuroexams, add aspirin to Plavix and resume statin therapy, consistent with prior recommended medical management Discussed with patient current presentation and possibility of stroke or embolic phenomenon from carotid disease. Patient was very urmila about his age and life expectancy. He was comfortable with plan to adjust medications, evaluate and monitor PT/OT eval Continue serial cardiac enzymes Telemetry monitoring for any episodes of bradycardia Will decrease doses of isosorbide mononitrate, hold losartan/hydrochlorothiazide Decrease dose of doxazosin Decrease frequency of hydrocodone, particularly since he has not been taking it Tylenol as needed for pain control Recent MRI report reviewed. Had 20% L1 compression fracture; outpatient orthopedics note indicates also had T11 fracture but not noted on MRI which did not include the thoracic spine. Will continue Flomax for now; review of external records shows that it was started at least roughly a year ago and is not a new medicine or had recent dosage change Monitor I's and O's closely Will continue fluids on the floor but add some potassium Will repeat electrolytes and lactic acid in the morning Monitor for signs and symptoms of potential infection and/or decline in clinical status Check urinalysis via straight cath as needed Check CK level Continue home levothyroxine Check TSH Laxative/stool softener VTE prophylaxis: Lovenox at renal dosing GI Prophylaxis: PPI Telemetry: Ordered secondary to history of syncope and prior issues with bradycardia Nixon: not currently indicated though straight cath ordered to facilitate getting urinary specimen Line(s): peripheral IVs Disposition plan: Home with outpatient follow up to primary care provider, Dr Farah, anticipated. Has apt with Dr Machado in October 2023 and follow up with ortho spine on 07/29/2023 Code Status: allow natural as per discussion with patient let me go if I quit breathing or my heart stops Supportive care otherwise Findings, concerns and plans were discussed with patient and he was given an opportunity to ask questions Attestations Medical Necessity Statement*: Currently anticipate a stay less than two midnights and this patient presenting with a possible syncopal episode. He had elevation in baseline troponin and elevated lactic acid. Symptoms have resolved but are concerning as described for cerebrovascular or cardiovascular incident. Plans are as noted. and Moderate Time for a total of 70 minutes, includes reviewing past or interval history, examining/interviewing patient, placing orders and documenting encounter Diagnoses Syncope R55 Bilateral carotid artery stenosis I65.23 Laterality: bilateral Elevated lactic acid level R79.89 Traumatic compression fracture of L1 lumbar vertebra S32.010A Encounter type: subsequent encounter Frequent falls R29.6 Atherosclerosis of coronary artery of [place] heart without angina pectoris I25.10 Bradycardia R00.1 Essential hypertension I10 Chronic kidney disease (CKD) N18.9 BPH loc w urin obs/LUTS N40.1 Hypothyroidism E03.9
[2023-07-21 15:29] LABS: Lactic Acid level (Lactate) 2.8 mmol/L (0.5-2.2)
--- NOTE | 2023-07-21 18:35 | ECG_ITS ---
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 Measurements Intervals [place] Rate: 105 P: 37 MI: 165 QRS: 45 QRSD: 98 T: 57 QT: 329 QTc: 436 Interpretive Statements SINUS TACHYCARDIA NONSPECIFIC ST & T-WAVE ABNORMALITY ABNORMAL RHYTHM ECG Compared to ECG 07/21/2023 14:10:55 T-wave abnormality now present Sinus rhythm no longer present Myocardial infarct finding no longer present Electronically Signed On 07-21-2023 19:45:25 ESTIMATION MANAGER by Tree Melton M.D. [id number]
[2023-07-21] MEDS: docusate sodium 100 mg Capsule PO (18:37)
[2023-07-21] MEDS: acetaminophen 325 mg Tablet 650 MG PO (18:37)
[2023-07-21] MEDS: enoxaparin 30 mg/0.3 mL Syringe SUBCUT (18:37)
[2023-07-21] MEDS: sodium chlor 0.9% + KCl 20 mEq 20 MEQ/1,000 ML BAG 75 MEQ IV (18:38)
[2023-07-21 19:01] LABS: Creatine Phosphokinase 49 U/L (39-308); Lactate (Lactic Acid level) 1.9 mmol/L (0.5-2.2)
[2023-07-21 19:02] LABS: Troponin 5 6HR 30.47 ng/L (0-15)
[2023-07-21 19:06] LABS: Troponin 5 6HR Delta -1.53 ng/L (0-12)
--- NOTE | 2023-07-21 19:06 | PC.NURSE ---
Patient arrived sometime around 1700. Patient was brought by ED staff. Patient was left in room sitting on the side of the bed with his chart on the bedside table. No one notified that patient was here on the floor. Patient pushed call light and that is how this nurse discovered his arrival. Patient is alert and oriented and complaining of back pain related to fractured vertebrae. Patient is oriented to his room and call holder.
[2023-07-21 21:10] LABS: Add Urine Culture? No; Add Urine Microscopic? YES; Bacteria Urine TRACE /hpf; Bilirubin Urine Neg (Negative); Blood Urine Neg (Negative); Glucose Urine UA Norm (Normal); Hyaline Casts Urine 15-25 /lpf; Ketones Urine 1+ (Negative); Leukocyte Esterase Urine Negative (Negative); Mucus Urine 1+ /hpf; Nitrate Urine Negative (Negative); Protein Urine Trace (Negative); RBC Urine 0-4 /hpf (0-2); Squamous Epithelial Cell Urine 0-4 /hpf (0-5); Urine Appearance Clear (CLEAR); Urine Color Yellow (Yellow); Urobilinogen Urine Norm (Negative); WBC Urine 0-4 /hpf (0-5); pH Urine 5 (5-7)
[2023-07-21] MEDS: sennosides 8.6 mg Tablet PO (21:15)
[2023-07-21] MEDS: atorvastatin 40 mg Tablet 80 MG PO (21:16)
[2023-07-21] MEDS: doxazosin 1 mg Tablet PO (21:16)
[2023-07-22] VITALS (10 sets, daily range): BP systolic 141–164; BP diastolic 66–94; PULSE 59–99; RESP 16–25; TEMP 36.6–36.9; O2SAT 91–96; BMI 23.4
[2023-07-22 04:06] LABS: Basophils % 0.3 %; Eosinophils # 0.1 10^3/uL (0.0-0.8); Eosinophils % 0.7 %; Hematocrit 45.2 % (37-53); Lymphocytes # 1.2 10^3/uL (0.8-4.8); Lymphocytes % 12.1 %; Mean Corpuscular HGB Conc 33.6 g/dL (30-55); Mean Corpuscular Hemoglobin 31.1 pg (27-33); Mean Corpuscular Volume 92.4 fl (82-101); Mean Platelet Volume 9.4 fL (7.4-10.4); Monocytes # 0.7 10^3/uL (0.2-0.9); Neutrophils # 7.77 10^3/uL (1.8-7.7); Neutrophils % 79.5 %; Nucleated Red Blood Cells % 0 %; Platelet Count 213 10^3/cmm (157-399); Red Blood Count 4.89 10^6/uL (3.85-5.65); Red Cell Distribution Width 13.1 % (12.1-15.1); White Blood Count 9.77 10^3/uL (3.29-11.43)
[2023-07-22 04:48] LABS: Alanine Aminotransferase 16 U/L (0-41); Albumin Level 3.8 g/dL (3.5-5.2); Alkaline Phosphatase 131 U/L (40-130); Anion Gap 15.7 (5-19); Aspartate Amino Transferase 20 U/L (0-40); Blood Urea Nitrogen 48 mg/dL (8-23); Calcium 9.6 mg/dL (8.5-10.5); Carbon Dioxide 26 mmol/L (22-29); Chloride 99 mmol/L (98-107); Glucose 126 mg/dL (65-115); Osmolality Calculated 298 mOsm/kg (285-295); Phosphorus 2.9 mg/dL (2.5-4.5); Potassium 3.7 mmol/L (3.5-5.1); Sodium 137 mmol/L (136-145); Total Bilirubin 0.4 mg/dL (0.15-1.2); Total Protein 6.8 g/dL (6.6-8.7)
[2023-07-22] MEDS: levothyroxine 50 mcg Tablet PO (05:27)
[2023-07-22] MEDS: clopidogrel 75 mg Tablet PO (05:27)
[2023-07-22] MEDS: HYDROcodone-acetaminophen 5-325 mg Tablet 1 TAB PO ×2 (06:35→16:06)
[2023-07-22] MEDS: docusate sodium 100 mg Capsule PO ×2 (08:42→17:59)
[2023-07-22] MEDS: aspirin 81 mg EC Tablet PO (08:42)
[2023-07-22] MEDS: tamsulosin 0.4 mg Capsule PO (08:42)
[2023-07-22] MEDS: pantoprazole DR 40 mg Tablet PO (08:42)
[2023-07-22] MEDS: isosorbide mononitrate ER 30 mg Tablet PO (08:42)
[2023-07-22] MEDS: gabapentin 100 mg Capsule PO (08:43)
[2023-07-22] MEDS: sodium chlor 0.9% + KCl 20 mEq 20 MEQ/1,000 ML BAG 75 MEQ IV ×2 (08:43→21:00)
--- NOTE | 2023-07-22 10:45 | PM.PN ---
Subjective Subjective: Seen this morning. No acute events overnight. Reviewed telemetry overnight. No significant heart block seen however patient does have episodes of sinus bradycardia down to 44. He states he has had these issues in the past as well and has worn Holter before. Unable to give me any other history. He says he saw Dr. Melton in the past. He says he fell without any warning. There were no prodromal symptoms. somewhat of a poor historian Vitals/I&O/Wt Last Vital Signs Temp 98.4 F 07/22/23 08:00 Pulse 88 07/22/23 10:22 Resp 21 H 07/22/23 08:00 BP 164/84 07/22/23 08:00 Pulse Ox 93 07/22/23 10:22 O2 Del Method Room Air 07/22/23 10:22 07/21/23 07/22/23 07/22/23 22:59 06:59 14:59 Intake Total 500 / 500 1000 / 1000 Output Total 50 / 50 Balance 500 / 500 -50 / 450 1000 / 1000 Weight last 48 hrs Weight 71.923 kg Weight 71.923 kg Weight 71.696 kg Physical Exam Narrative: General: Alert oriented x3, patient seen sitting up in bed eating breakfast at this time. Appearing comfortable. HEENT: Normocephalic, atraumatic, EOMI, Cardio: Regular rate rhythm, normal S1-S2, not bradycardic at this time. Respiratory: Clear to auscultation bilaterally GI: Abdomen soft, nontender, nondistended, bowel sounds + Behavior: Appropriate and cooperative Extremities: No edema noted Data 07/22/23 03:40 07/22/23 03:40 A&P Assessment and plan (1) Hypertension: (2) Atherosclerosis of coronary artery of [place] heart without angina pectoris: (3) Abnormal nuclear stress test: (4) Bradycardia: (5) Carotid artery stenosis: Qualifiers: Laterality: bilateral Qualified Code(s): I65.23 - Occlusion and stenosis of bilateral carotid arteries (6) Carotid stenosis, right: (7) Hyperlipidemia: Qualifiers: Hyperlipidemia type: mixed hyperlipidemia Qualified Code(s): E78.2 - Mixed hyperlipidemia (8) Hypothyroidism: (9) Chronic kidney disease (CKD): (10) CVA (cerebral vascular accident): (11) Traumatic compression fracture of L1 lumbar vertebra: Qualifiers: Encounter type: subsequent encounter (12) Traumatic compression fracture of T11 thoracic vertebra: Qualifiers: Encounter type: initial encounter Fracture type: closed Qualified Code(s): S22.080A - Wedge compression fracture of T11-T12 vertebra, initial encounter for closed fracture (13) Syncope: (14) Frequent falls: Plan #Fall, frequent falls #Syncope #Carotid artery stenosis #Compression fracture of L1 vertebra #Sinus bradycardia, heart block not ruled out #Hypertension #CAD status post PCI #CKD #BPH #Hypothyroidism ? Patient came in with falls and he does have a history of frequent falls. In the past he has worn a Holter monitor as per him. I will look into the results of that. ? In the past rate limiting agents have been discontinued due to bradycardia. ? Follows with Dr. Melton as an outpatient ? Continue to monitor on telemetry for episodes of bradycardia. ? Check echocardiogram ? He has known carotid artery stenosis, severe on right side in December 2021. Followed by Dr. Machado and given his age of 88 and anticipated life expectancy he was not deemed a candidate for surgical intervention and has been managed medically with dual antiplatelet therapy and statin therapy. Currently aspirin or statin are not listed on his home medication list. ? No acute EKG changes. ? Chronically on losartan hydrochlorothiazide as well as isosorbide. Doses were adjusted on admission. ? PT OT -Check orthostatic vitals ? He will probably require an event monitor. ? I would restart aspirin and statin at this time. ? Continue levothyroxine ? CK 49, alkaline phosphatase 31, troponins negative delta. TSH 1.60. COVID is negative. ? Continue aspirin, Plavix, atorvastatin. ? Head CT negative for stroke. ? I would probably observe for another day in the hospital given new doses of medications and if stable patient may be discharged to follow-up with cardiology as an outpatient. I will discuss with cardiology regarding setting up an event monitor at discharge. DNR/DNI SCDs, heparin SQ twice daily for DVT prophylaxis. Attestations Medical Necessity Statement*: continue to observe in hospital today on telemetry Diagnoses Essential hypertension I10 Atherosclerosis of coronary artery of [place] heart without angina pectoris I25.10 Abnormal nuclear stress test R94.39 Bradycardia R00.1 Bilateral carotid artery stenosis I65.23 Laterality: bilateral Carotid stenosis, right I65.21 Mixed hyperlipidemia E78.2 Hyperlipidemia type: mixed hyperlipidemia Hypothyroidism E03.9 Chronic kidney disease (CKD) N18.9 CVA (cerebral vascular accident) I63.9 Traumatic compression fracture of L1 lumbar vertebra S32.010A Encounter type: subsequent encounter Traumatic compression fracture of T11 thoracic vertebra, closed, initial encounter S22.080A Encounter type: initial encounter Fracture type: closed Syncope R55 Frequent falls R29.6
--- NOTE | 2023-07-22 15:59 | PC.OT ---
OT eval attempted at 15:57 with pt declining; will attempt at later time.
[2023-07-22] MEDS: enoxaparin 30 mg/0.3 mL Syringe SUBCUT (17:59)
[2023-07-22] MEDS: sennosides 8.6 mg Tablet PO (20:59)
[2023-07-22] MEDS: doxazosin 1 mg Tablet PO (21:00)
[2023-07-22] MEDS: atorvastatin 40 mg Tablet 80 MG PO (21:00)
[2023-07-23] VITALS (12 sets, daily range): BP systolic 116–172; BP diastolic 70–114; PULSE 69–103; RESP 15–25; TEMP 36.6–37.1; O2SAT 91–96; BMI 23.6
[2023-07-23] MEDS: HYDROcodone-acetaminophen 5-325 mg Tablet 1 TAB PO ×3 (00:06→20:01)
[2023-07-23 04:16] LABS: Basophils # 0.1 10^3/uL (0.0-0.1); Basophils % 0.6 %; Eosinophils # 0.3 10^3/uL (0.0-0.8); Eosinophils % 2.4 %; Lymphocytes # 1.2 10^3/uL (0.8-4.8); Lymphocytes % 11.5 %; Mean Corpuscular HGB Conc 33.3 g/dL (30-55); Mean Corpuscular Hemoglobin 30.8 pg (27-33); Mean Corpuscular Volume 92.5 fl (82-101); Mean Platelet Volume 9.5 fL (7.4-10.4); Monocytes # 0.8 10^3/uL (0.2-0.9); Monocytes % 7.6 %; Neutrophils # 8.27 10^3/uL (1.8-7.7); Neutrophils % 77.6 %; Nucleated Red Blood Cells % 0 %; Platelet Count 208 10^3/cmm (157-399); Red Blood Count 4.65 10^6/uL (3.85-5.65); Red Cell Distribution Width 13.2 % (12.1-15.1); White Blood Count 10.65 10^3/uL (3.29-11.43)
[2023-07-23 04:36] LABS: Anion Gap 10.9 (5-19); Blood Urea Nitrogen 35 mg/dL (8-23); Calcium 9.3 mg/dL (8.5-10.5); Carbon Dioxide 27 mmol/L (22-29); Chloride 106 mmol/L (98-107); Glucose 134 mg/dL (65-115); Osmolality Calculated 300 mOsm/kg (285-295); Potassium 3.9 mmol/L (3.5-5.1); Sodium 140 mmol/L (136-145)
[2023-07-23] MEDS: levothyroxine 50 mcg Tablet PO (05:42)
[2023-07-23] MEDS: clopidogrel 75 mg Tablet PO (05:42)
[2023-07-23] MEDS: docusate sodium 100 mg Capsule PO ×2 (08:51→17:29)
[2023-07-23] MEDS: pantoprazole DR 40 mg Tablet PO (08:51)
[2023-07-23] MEDS: isosorbide mononitrate ER 30 mg Tablet PO (08:51)
[2023-07-23] MEDS: tamsulosin 0.4 mg Capsule PO (08:51)
[2023-07-23] MEDS: aspirin 81 mg EC Tablet PO (08:51)
[2023-07-23] MEDS: gabapentin 100 mg Capsule PO (08:51)
--- NOTE | 2023-07-23 09:13 | P.DS_ITS ---
Discharge Providers Date of Admission: 07/22/23 17:35 Date of Discharge: July 23, 2023 Attending Provider at Admission: Chiquita Cooney MD Attending Provider at Discharge: Mitali Hilton MD Primary Care Provider: Tam Farha DO Diagnoses at Discharge Discharge Diagnosis (1) Hypertension: Status: Chronic (2) 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 pectoris: Status: Chronic (3) Abnormal nuclear stress test: Status: Chronic (4) Bradycardia: Status: Acute (5) Carotid artery stenosis: Status: Chronic Qualifiers: Laterality: bilateral Qualified Code(s): I65.23 - Occlusion and stenosis of bilateral carotid arteries (6) Carotid stenosis, right: Status: Acute (7) Hyperlipidemia: Status: Chronic Qualifiers: Hyperlipidemia type: mixed hyperlipidemia Qualified Code(s): E78.2 - Mixed hyperlipidemia (8) Hypothyroidism: Status: Chronic (9) Chronic kidney disease (CKD): Status: Chronic (10) CVA (cerebral vascular accident): Status: Chronic (11) Traumatic compression fracture of L1 lumbar vertebra: Status: Acute Qualifiers: Encounter type: subsequent encounter (12) Traumatic compression fracture of T11 thoracic vertebra: Status: Acute Qualifiers: Encounter type: initial encounter Fracture type: closed Qualified Code(s): S22.080A - Wedge compression fracture of T11-T12 vertebra, initial encounter for closed fracture (13) Syncope: Status: Acute (14) Frequent falls: Status: Acute Reason for Visit Reason for Visit: Syncopal episode Discharge Data Studies Completed and Pending Completed Studies During Hospitalization Category Date Time Status CT head wo con* [id number] Stat Cat Scan 07/21/23 12:07 Completed XR chest 1V portable [id number] Stat Exams 07/21/23 12:55 Completed Laboratory Results WBC 10.65 10^3/uL (3.29-11.43) 07/23/23 03:47 RBC 4.65 10^6/uL (3.85-5.65) 07/23/23 03:47 Hgb 14.30 g/dL (11.27-16.99) 07/23/23 03:47 Hct 43.0 % (37-53) 07/23/23 03:47 MCV 92.5 fl (82-101) 07/23/23 03:47 MCH 30.8 pg (27-33) 07/23/23 03:47 MCHC 33.3 g/dL (30-55) 07/23/23 03:47 RDW 13.2 % (12.1-15.1) 07/23/23 03:47 Plt Count 208 10^3/cmm (157-399) 07/23/23 03:47 MPV 9.5 fL (7.4-10.4) 07/23/23 03:47 Neut % (Auto) 77.6 % 07/23/23 03:47 Lymph % (Auto) 11.5 % 07/23/23 03:47 Whitman % (Auto) 7.6 % 07/23/23 03:47 Eos % (Auto) 2.4 % 07/23/23 03:47 Baso % (Auto) 0.6 % 07/23/23 03:47 Neut # (Auto) 8.27 10^3/uL (1.8-7.7) H 07/23/23 03:47 Lymph # (Auto) 1.2 10^3/uL (0.8-4.8) 07/23/23 03:47 Whitman # (Auto) 0.8 10^3/uL (0.2-0.9) 07/23/23 03:47 Eos # (Auto) 0.3 10^3/uL (0.0-0.8) 07/23/23 03:47 Baso # (Auto) 0.1 10^3/uL (0.0-0.1) 07/23/23 03:47 Nucleated RBC % (auto) 0 % 07/23/23 03:47 Nucleated RBCs # 0.0 /100WBC 07/23/23 03:47 Sodium 140 mmol/L (136-145) 07/23/23 03:47 Potassium 3.9 mmol/L (3.5-5.1) 07/23/23 03:47 Chloride 106 mmol/L (98-107) 07/23/23 03:47 Carbon Dioxide 27 mmol/L (22-29) 07/23/23 03:47 Anion Gap 10.9 (5-19) 07/23/23 03:47 BUN 35 mg/dL (8-23) H 07/23/23 03:47 Creatinine 1.6 mg/dL (0.7-1.2) H 07/23/23 03:47 GFR Calculation Not Reportable 07/23/23 03:47 Glucose 134 mg/dL (65-115) H 07/23/23 03:47 Calculated Osmolality 300 mOsm/kg (285-295) H 07/23/23 03:47 Lactic Acid 3.0 mmol/L (0.5-2.2) H 07/21/23 11:35 Lactic Acid (Sepsis) 2.8 mmol/L (0.5-2.2) H 07/21/23 14:46 Lactate 1.9 mmol/L (0.5-2.2) 07/21/23 17:47 Calcium 9.3 mg/dL (8.5-10.5) 07/23/23 03:47 Phosphorus 2.9 mg/dL (2.5-4.5) 07/22/23 03:40 Magnesium 2.0 mg/dL (1.7-2.3) 07/22/23 03:40 Total Bilirubin 0.4 mg/dL (0.15-1.2) 07/22/23 03:40 AST 20 U/L (0-40) 07/22/23 03:40 ALT 16 U/L (0-41) 07/22/23 03:40 Alkaline Phosphatase 131 U/L (40-130) H 07/22/23 03:40 Creatine Kinase 49 U/L (39-308) 07/21/23 17:47 Troponin T Baseline 32 ng/L (0-15) H 07/21/23 11:35 Troponin T 120 Minute 28.14 ng/L (0-15) H 07/21/23 13:42 Delta Troponin T -3.86 ABS# (0-10) L 07/21/23 13:42 Troponin T Hi Sens 6Hr 30.47 ng/L (0-15) H 07/21/23 17:47 Troponin T Hi Sens 6Hr Delta -1.53 ng/L (0-12) L 07/21/23 17:47 Total Protein 6.8 g/dL (6.6-8.7) 07/22/23 03:40 Albumin 3.8 g/dL (3.5-5.2) 07/22/23 03:40 Globulin 3.0 g/dL (1.3-4.6) 07/22/23 03:40 TSH 1.60 uIU/mL (0.27-4.20) 07/22/23 03:40 Urine Color Yellow (Yellow) 07/21/23 16:30 Urine Appearance Clear (CLEAR) 07/21/23 16:30 Urine pH 5 (5-7) 07/21/23 16:30 Ur Specific [place] 1.020 (1.005-1.030) 07/21/23 16:30 Urine Protein Trace (Negative) 07/21/23 16:30 Urine Glucose (UA) Norm (Normal) 07/21/23 16:30 Urine Ketones 1+ (Negative) H 07/21/23 16:30 Urine Blood Neg (Negative) 07/21/23 16:30 Urine Nitrate Negative (Negative) 07/21/23 16: Urine Bilirubin Neg (Negative) 07/21/23 16:30 Urine Urobilinogen Norm mg/dL (Negative) 07/21/23 16:30 Ur Leukocyte Esterase Negative (Negative) 07/21/23 16:30 Urine RBC 0-4 /hpf (0-2) H 07/21/23 16:30 Urine WBC 0-4 /hpf (0-5) H 07/21/23 16:30 Ur Squamous Epith Cells 0-4 /hpf (0-5) H 07/21/23 16:30 Amorphous Sediment Not Reportable 07/21/23 16:30 Urine Bacteria Trace /hpf (NONE) 07/21/23 16:30 Hyaline Casts 15-25 /lpf H 07/21/23 16:30 Urine Mucus 1+ /hpf 07/21/23 16:30 Coronavirus 229E (PCR) Not detected (NOT DETECT) 07/21/23 12:25 SARS-CoV-2 (PCR) Not detected (NOT DETECT) 07/21/23 12:25 Vitals Last Vital Signs Temp 97.8 F 07/23/23 07:19 Pulse 75 07/23/23 07:19 Resp 16 07/23/23 07:19 BP 172/82 07/23/23 07:19 Pulse Ox 96 07/23/23 07:19 O2 Del Method Room Air 07/23/23 07:19 Discharge Plan Discharge Patient Disposition: Home Condition: Stable Prescriptions: No Action hydrocodone-acetaminophen 5-325 mg tablet 1 tab PO Q4H PRN (Reason: Lumbar and Thoracic fracture pain) 5 Days Qty: 30 0RF losartan-hydrochlorothiazide 100-25 mg tablet 1 tab PO DAILY Qty: 30 0RF clopidogrel 75 mg tablet 75 mg PO QAM levothyroxine 50 mcg tablet 50 mcg PO QAM isosorbide mononitrate 60 mg tablet extended release 24 hr 60 mg PO DAILY tamsulosin 0.4 mg capsule 0.4 mg PO DAILY gabapentin 100 mg capsule 100 mg PO DAILY cetirizine 10 mg Tablet 10 mg PO DAILY PRN (Reason: Allergic Symptoms) acetaminophen 500 mg Tablet 1,000 mg PO Q4H PRN (Reason: Pain) nitroglycerin [Nitrostat] 0.4 mg Tablet, Sublingual 0.4 mg SUBLINGUAL Q5M PRN (Reason: Chest Pain) Rx Instructions: do not exceed 3 doses per episode Cardura 2 mg tablet 2 mg PO QPM Discharge Orders: Discharge Order (Routine); Ordered 07/23/23 Ordered By: Mitali Hilton Other Ambulatory Orders: MCT/Event Monitor 30 Days (Routine) Timeframe: 1 Day Facility: [facility] - Location: Radiology Ordered By: Mitali Hilton Referrals: Tam Farah DO [Primary Care Provider] - 07/29/23 8:20 am Patient Instructions: Opioid Safety Discharge Attestations Status at Discharge: Cognitive status at discharge: cognitively intact , Behavioral status at discharge: cooperative , Coding Level of Care Code Acute Code for Chg Fwd Diagnoses Essential hypertension I10 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 pectoris I25.10 Abnormal nuclear stress test R94.39 Bradycardia R00.1 Bilateral carotid artery stenosis I65.23 Laterality: bilateral Carotid stenosis, right I65.21 Mixed hyperlipidemia E78.2 Hyperlipidemia type: mixed hyperlipidemia Hypothyroidism E03.9 Chronic kidney disease (CKD) N18.9 CVA (cerebral vascular accident) I63.9 Traumatic compression fracture of L1 lumbar vertebra S32.010A Encounter type: subsequent encounter Traumatic compression fracture of T11 thoracic vertebra, closed, initial encounter S22.080A Encounter type: initial encounter Fracture type: closed Syncope R55 Frequent falls R29.6
--- NOTE | 2023-07-23 11:08 | P.PN_ITS ---
Subjective 2 Subjective: Seen this morning. No acute events overnight. Discussed briefly with Dr. 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 Recommend event monitor x 30 days. Blood pressure 172/82 this morning. Home blood pressure admission were held initially on admission. No further falls or syncope episode. Vitals/I&O/Wt Last Vital Signs Temp 97.8 F 07/23/23 07:19 Pulse 75 07/23/23 07:19 Resp 16 07/23/23 07:19 BP 172/82 07/23/23 07:19 Pulse Ox 96 07/23/23 07:19 O2 Del Method Room Air 07/23/23 07:19 07/22/23 07/23/23 07/23/23 22:59 06:59 14:59 Intake Total 556.25 / 2488.75 360 / 360 Output Total 250 / 475 500 / 975 250 / 250 Balance 306.25 / 2013.75 -500 / 1513.75 110 / 110 Weight last 48 hrs Weight 72.717 kg Weight 71.923 kg Weight 71.923 kg Weight 71.696 kg Physical Exam 2 Narrative: General: Alert oriented x3, patient seen sitting up in chair. HEENT: Normocephalic, atraumatic, EOMI, Cardio: Regular rate rhythm, normal S1-S2, not bradycardic at this time. Respiratory: Clear to auscultation bilaterally GI: Abdomen soft, nontender, nondistended, bowel sounds + Behavior: Appropriate and cooperative Extremities: No edema noted Data 07/23/23 03:47 07/23/23 03:47 A&P Assessment and plan (1) Hypertension: (2) Atherosclerosis of coronary artery of [place] heart without angina pectoris: (3) Abnormal nuclear stress test: (4) Bradycardia: (5) Carotid artery stenosis: Qualifiers: Laterality: bilateral Qualified Code(s): I65.23 - Occlusion and stenosis of bilateral carotid arteries (6) Carotid stenosis, right: (7) Hyperlipidemia: Qualifiers: Hyperlipidemia type: mixed hyperlipidemia Qualified Code(s): E78.2 - Mixed hyperlipidemia (8) Hypothyroidism: (9) Chronic kidney disease (CKD): (10) CVA (cerebral vascular accident): (11) Traumatic compression fracture of L1 lumbar vertebra: Qualifiers: Encounter type: subsequent encounter (12) Traumatic compression fracture of T11 thoracic vertebra: Qualifiers: Encounter type: initial encounter Fracture type: closed Qualified Code(s): S22.080A - Wedge compression fracture of T11-T12 vertebra, initial encounter for closed fracture (13) Syncope: (14) Frequent falls: Plan #Fall, frequent falls #Syncope #Carotid artery stenosis #Compression fracture of L1 vertebra #Sinus bradycardia, heart block not ruled out #Hypertension #CAD status post PCI #CKD #BPH #Hypothyroidism ? Patient came in with falls and he does have a history of frequent falls. In the past he has worn a Holter monitor in year 2019. Will set up with a Monitor discharge x [address] Melton. ? In the past rate limiting agents have been discontinued due to bradycardia. ? Follows with Dr. Melton as an outpatient ? Continue to monitor on telemetry for episodes of bradycardia. ? Check echocardiogram ? He has known carotid artery stenosis, severe on right side in December 2021. Followed by Dr. Machado and given his age of 88 and anticipated life expectancy he was not deemed a candidate for surgical intervention and has been managed medically with dual antiplatelet therapy and statin therapy. Currently aspirin or statin are not listed on his home medication list. ? No acute EKG changes. ? Chronically on losartan hydrochlorothiazide as well as isosorbide. Dose adjusted for isosorbide. ? PT OT Stop IV fluids today. ? He will probably require an event monitor. ? I would restart aspirin and statin at this time. ? Continue levothyroxine ? CK 49, alkaline phosphatase 31, troponins negative delta. TSH 1.60. COVID is negative. ? Continue aspirin, Plavix, atorvastatin. ? Head CT negative for stroke. 07/23/2023 ? I will stop doxazosin as it does have a side effect of syncope secondary to orthostatic hypotension. ? Will switch patient to hydralazine 25 3 times daily, losartan 100 daily. Continue to observe in hospital today. If blood pressure improved we will send patient home in a.m. with event monitor in place. I would continue Imdur 30 at this time also. DNR/DNI SCDs, heparin SQ twice daily for DVT prophylaxis. Attestations 2 Medical Necessity Statement*: continue to observe in hospital today on telemetry Diagnoses Essential hypertension I10 Atherosclerosis of coronary artery of [place] heart without angina pectoris I25.10 Abnormal nuclear stress test R94.39 Bradycardia R00.1 Bilateral carotid artery stenosis I65.23 Laterality: bilateral Carotid stenosis, right I65.21 Mixed hyperlipidemia E78.2 Hyperlipidemia type: mixed hyperlipidemia Hypothyroidism E03.9 Chronic kidney disease (CKD) N18.9 CVA (cerebral vascular accident) I63.9 Traumatic compression fracture of L1 lumbar vertebra S32.010A Encounter type: subsequent encounter Traumatic compression fracture of T11 thoracic vertebra, closed, initial encounter S22.080A Encounter type: initial encounter Fracture type: closed Syncope R55 Frequent falls R29.6
[2023-07-23] MEDS: losartan 50 mg Tablet 100 MG PO (12:07)
[2023-07-23] MEDS: hyDRALAzine 25 mg Tablet 50 MG PO ×2 (14:52→20:00)
[2023-07-23] MEDS: enoxaparin 30 mg/0.3 mL Syringe SUBCUT (17:29)
[2023-07-23] MEDS: sennosides 8.6 mg Tablet PO (20:00)
[2023-07-23] MEDS: atorvastatin 40 mg Tablet 80 MG PO (20:00)
[2023-07-23] MEDS: hyDROXYzine 25 mg Capsule PO (22:38)
[2023-07-24] VITALS (7 sets, daily range): BP systolic 147–168; BP diastolic 79–92; PULSE 66–84; RESP 18–19; TEMP 36.8–37; O2SAT 95–96
[2023-07-24] MEDS: HYDROcodone-acetaminophen 5-325 mg Tablet 1 TAB PO (03:23)
[2023-07-24 04:32] LABS: Anion Gap 13.8 (5-19); Blood Urea Nitrogen 29 mg/dL (8-23); Calcium 9.3 mg/dL (8.5-10.5); Carbon Dioxide 24 mmol/L (22-29); Chloride 106 mmol/L (98-107); Glucose 107 mg/dL (65-115); Osmolality Calculated 296 mOsm/kg (285-295); Potassium 3.8 mmol/L (3.5-5.1); Sodium 140 mmol/L (136-145)
[2023-07-24] MEDS: levothyroxine 50 mcg Tablet PO (05:35)
[2023-07-24] MEDS: clopidogrel 75 mg Tablet PO (05:35)
[2023-07-24] MEDS: hyDRALAzine 25 mg Tablet 50 MG PO (09:02)
[2023-07-24] MEDS: pantoprazole DR 40 mg Tablet PO (09:02)
[2023-07-24] MEDS: losartan 50 mg Tablet 100 MG PO (09:02)
[2023-07-24] MEDS: docusate sodium 100 mg Capsule PO (09:02)
[2023-07-24] MEDS: tamsulosin 0.4 mg Capsule PO (09:02)
[2023-07-24] MEDS: gabapentin 100 mg Capsule PO (09:03)
[2023-07-24] MEDS: isosorbide mononitrate ER 30 mg Tablet PO (09:03)
[2023-07-24] MEDS: aspirin 81 mg EC Tablet PO (09:03)
--- NOTE | 2023-07-24 09:04 | PM.DCS ---
Discharge Providers Date of Admission: 07/22/23 17:35 Date of Discharge: July 24, 2023 Attending Provider at Admission: Chiquita Cooney MD Attending Provider at Discharge: Mitali Hilton MD Primary Care Provider: Tam Farah DO Diagnoses at Discharge Discharge Diagnosis (1) Hypertension: Status: Chronic (2) Atherosclerosis of coronary artery of [place] heart without angina pectoris: Status: Chronic (3) Abnormal nuclear stress test: Status: Chronic (4) Bradycardia: Status: Acute (5) Carotid artery stenosis: Status: Chronic Qualifiers: Laterality: bilateral Qualified Code(s): I65.23 - Occlusion and stenosis of bilateral carotid arteries (6) Carotid stenosis, right: Status: Acute (7) Hyperlipidemia: Status: Chronic Qualifiers: Hyperlipidemia type: mixed hyperlipidemia Qualified Code(s): E78.2 - Mixed hyperlipidemia (8) Hypothyroidism: Status: Chronic (9) Chronic kidney disease (CKD): Status: Chronic (10) CVA (cerebral vascular accident): Status: Chronic (11) Traumatic compression fracture of L1 lumbar vertebra: Status: Acute Qualifiers: Encounter type: subsequent encounter (12) Traumatic compression fracture of T11 thoracic vertebra: Status: Acute Qualifiers: Encounter type: initial encounter Fracture type: closed Qualified Code(s): S22.080A - Wedge compression fracture of T11-T12 vertebra, initial encounter for closed fracture (13) Syncope: Status: Acute (14) Frequent falls: Status: Acute Reason for Visit Reason for Visit: Syncopal episode Brief History: Mr Fuller is an 88 year old gentleman who presented to the emergency room with a chief complaint of passing out. After breakfast, he was sitting in a chair when he suddenly felt his vision going away . He thinks he almost lost consciousness but did reports he did not completely pass out. He did not injure himself. Again he was sitting in the chair. At that time he had a headache on the top of his head. Prior to this episode during breakfast he had some nausea and 1 episode of vomiting. He describes feeling numb all over his body when his vision was going out. Both his right arm and left arm along with right leg and left leg. He said he also hurts all over. By the time he got here he was feeling a bit better but he still does not feel very good overall. No reported fever. Denies any upper respiratory symptoms such as cough, runny nose or sore throat. He did have a fall a few weeks ago and was seen in the emergency room. He was found to have an acute L1 compression fracture. He was prescribed hydrocodone but reports that it caused significant constipation so he quit taking that. He got a refill when he was seen in orthopedic clinic but has been taking only Tylenol arthritis for pain. His last bowel movement was yesterday. Pain occurs in the lower part of his back and radiates down his legs and is worse with certain movements but he does report he has been able to dress himself recently. He was able to walk around some yesterday without a walker for the first time so overall he thinks he is improving. He had been prescribed a TLSO brace but states that it does not fit him well and he has not been using it. He has been having some cramping in his legs at times. In the past when he has had syncopal episodes he had been found to have bradycardia. None has been noted today. He did take his blood pressure medications as prescribed. On previous admissions he has typically had high blood pressure but today systolic pressures have ranged 90s to low 100s which is low for him. He was not noted to be orthostatic in the ER. Baseline troponin was 32. He had an elevated lactic acid without other indicators of acute infection. Given his advanced age, symptoms today and abnormal labs request was made for admission. He did receive some IV fluids in the emergency room. Again no loss of consciousness but he lost his vision. Pertinent past medical history includes known carotid disease for which he is followed by Dr. Machado. Has not been deemed an candidate for surgical intervention secondary to anticipated life expectancy and symptoms. Hospital Course Hospital Course Admitted for syncope workup. Adjusted blood pressure medications. Stop Cardura. Placed on hydralazine 75 3 times daily, reduce dose of the Imdur to 30 daily, stop hydrochlorothiazide. Continue losartan 100 daily. Patient remained syncope free during hospital stay. PT consult obtained. Patient qualified for home exercise program. He does have known carotid artery stenosis. Deemed not a surgical candidate for surgical intervention. Was being managed medically on aspirin Plavix and statin however they were not on his home medication list. We restarted those at this time. ? Discussed with his community case manager Dr. Melton and recommended a Holter monitor x 30 days. Patient to follow-up with cardiology as an outpatient. Discussed all above with the patient and he is in agreement. Reviewed telemetry no episodes of heart block. However did have a few instances of bradycardia however that was only the first day he was here. Physical Exam Narrative: General: Alert oriented x3, patient seen sitting up in chair. HEENT: Normocephalic, atraumatic, EOMI, Cardio: Regular rate rhythm, normal S1-S2, not bradycardic at this time. Respiratory: Clear to auscultation bilaterally GI: Abdomen soft, nontender, nondistended, bowel sounds + Behavior: Appropriate and cooperative Extremities: No edema noted Discharge Data Studies Completed and Pending Completed Studies During Hospitalization Category Date Time Status CT head wo con* [id number] Stat Cat Scan 07/21/23 12:07 Completed XR chest 1V portable [id number] Stat Exams 07/21/23 12:55 Completed Laboratory Results WBC 10.65 10^3/uL (3.29-11.43) 07/23/23 03:47 RBC 4.65 10^6/uL (3.85-5.65) 07/23/23 03:47 Hgb 14.30 g/dL (11.27-16.99) 07/23/23 03:47 Hct 43.0 % (37-53) 07/23/23 03:47 MCV 92.5 fl (82-101) 07/23/23 03:47 MCH 30.8 pg (27-33) 07/23/23 03:47 MCHC 33.3 g/dL (30-55) 07/23/23 03:47 RDW 13.2 % (12.1-15.1) 07/23/23 03:47 Plt Count 208 10^3/cmm (157-399) 07/23/23 03:47 MPV 9.5 fL (7.4-10.4) 07/23/23 03:47 Neut % (Auto) 77.6 % 07/23/23 03:47 Lymph % (Auto) 11.5 % 07/23/23 03:47 [place] % (Auto) 7.6 % 07/23/23 03:47 Eos % (Auto) 2.4 % 07/23/23 03:47 Baso % (Auto) 0.6 % 07/23/23 03:47 Neut # (Auto) 8.27 10^3/uL (1.8-7.7) H 07/23/23 03:47 Lymph # (Auto) 1.2 10^3/uL (0.8-4.8) 07/23/23 03:47 [place] # (Auto) 0.8 10^3/uL (0.2-0.9) 07/23/23 03:47 Eos # (Auto) 0.3 10^3/uL (0.0-0.8) 07/23/23 03:47 Baso # (Auto) 0.1 10^3/uL (0.0-0.1) 07/23/23 03:47 Nucleated RBC % (auto) 0 % 07/23/23 03:47 Nucleated RBCs # 0.0 /100WBC 07/23/23 03:47 Sodium 140 mmol/L (136-145) 07/24/23 03:45 Potassium 3.8 mmol/L (3.5-5.1) 07/24/23 03:45 Chloride 106 mmol/L (98-107) 07/24/23 03:45 Carbon Dioxide 24 mmol/L (22-29) 07/24/23 03:45 Anion Gap 13.8 (5-19) 07/24/23 03:45 BUN 29 mg/dL (8-23) H 07/24/23 03:45 Creatinine 1.6 mg/dL (0.7-1.2) H 07/24/23 03:45 GFR Calculation Not Reportable 07/24/23 03:45 Glucose 107 mg/dL (65-115) 07/24/23 03:45 Calculated Osmolality 296 mOsm/kg (285-295) H 07/24/23 03:45 Lactic Acid 3.0 mmol/L (0.5-2.2) H 07/21/23 11:35 Lactic Acid (Sepsis) 2.8 mmol/L (0.5-2.2) H 07/21/23 14:46 Lactate 1.9 mmol/L (0.5-2.2) 07/21/23 17:47 Calcium 9.3 mg/dL (8.5-10.5) 07/24/23 03:45 Phosphorus 2.9 mg/dL (2.5-4.5) 07/22/23 03:40 Magnesium 2.0 mg/dL (1.7-2.3) 07/22/23 03:40 Total Bilirubin 0.4 mg/dL (0.15-1.2) 07/22/23 03:40 AST 20 U/L (0-40) 07/22/23 03:40 ALT 16 U/L (0-41) 07/22/23 03:40 Alkaline Phosphatase 131 U/L (40-130) H 07/22/23 03:40 Creatine Kinase 49 U/L (39-308) 07/21/23 17:47 Troponin T Baseline 32 ng/L (0-15) H 07/21/23 11:35 Troponin T 120 Minute 28.14 ng/L (0-15) H 07/21/23 13:42 Delta Troponin T -3.86 ABS# (0-10) L 07/21/23 13:42 Troponin T Hi Sens 6Hr 30.47 ng/L (0-15) H 07/21/23 17:47 Troponin T Hi Sens 6Hr Delta -1.53 ng/L (0-12) L 07/21/23 17:47 Total Protein 6.8 g/dL (6.6-8.7) 07/22/23 03:40 Albumin 3.8 g/dL (3.5-5.2) 07/22/23 03:40 Globulin 3.0 g/dL (1.3-4.6) 07/22/23 03:40 TSH 1.60 uIU/mL (0.27-4.20) 07/22/23 03:40 Urine Color Yellow (Yellow) 07/21/23 16:30 Urine Appearance Clear (CLEAR) 07/21/23 16:30 Urine pH 5 (5-7) 07/21/23 16:30 Ur Specific [place] 1.020 (1.005-1.030) 07/21/23 16:30 Urine Protein Trace (Negative) 07/21/23 16:30 Urine Glucose (UA) Norm (Normal) 07/21/23 16:30 Urine Ketones 1+ (Negative) H 07/21/23 16:30 Urine Blood Neg (Negative) 07/21/23 16:30 Urine Nitrate Negative (Negative) 07/21/23 16:30 Urine Bilirubin Neg (Negative) 07/21/23 16:30 Urine Urobilinogen Norm mg/dL (Negative) 07/21/23 16:30 Ur Leukocyte Esterase Negative (Negative) 07/21/23 16:30 Urine RBC 0-4 /hpf (0-2) H 07/21/23 16:30 Urine WBC 0-4 /hpf (0-5) H 07/21/23 16:30 Ur Squamous Epith Cells 0-4 /hpf (0-5) H 07/21/23 16:30 Amorphous Sediment Not Reportable 07/21/23 16:30 Urine Bacteria Trace /hpf (NONE) 07/21/23 16:30 Hyaline Casts 15-25 /lpf H 07/21/23 16:30 Urine Mucus 1+ /hpf 07/21/23 16:30 Coronavirus 229E (PCR) Not detected (NOT DETECT) 07/21/23 12:25 SARS-CoV-2 (PCR) Not detected (NOT DETECT) 07/21/23 12:25 Vitals Last Vital Signs Temp 98.2 F 07/24/23 08:00 Pulse 66 07/24/23 08:00 Resp 19 H 07/24/23 04:00 BP 168/92 07/24/23 09:02 Pulse Ox 96 07/24/23 08:00 O2 Del Method Room Air 07/24/23 04:00 Discharge Plan Discharge Patient Disposition: Home Condition: Stable Prescriptions: New losartan 50 mg Tablet 100 mg PO DAILY Qty: 60 0RF atorvastatin 40 mg Tablet 80 mg PO BEDTIME Qty: 30 0RF isosorbide mononitrate 30 mg Tablet Extended Release 24 Hr 30 mg PO DAILY Qty: 30 0RF hydralazine 25 mg Tablet 75 mg PO TID Qty: 270 0RF aspirin 81 mg Tablet,Delayed Release (Dr/Ec) 81 mg PO DAILY Qty: 30 0RF Continued hydrocodone-acetaminophen 5-325 mg tablet 1 tab PO Q4H PRN (Reason: Lumbar and Thoracic fracture pain) 5 Days Qty: 30 0RF clopidogrel 75 mg tablet 75 mg PO QAM levothyroxine 50 mcg tablet 50 mcg PO QAM tamsulosin 0.4 mg capsule 0.4 mg PO DAILY gabapentin 100 mg capsule 100 mg PO DAILY cetirizine 10 mg Tablet 10 mg PO DAILY PRN (Reason: Allergic Symptoms) acetaminophen 500 mg Tablet 1,000 mg PO Q4H PRN (Reason: Pain) nitroglycerin [Nitrostat] 0.4 mg Tablet, Sublingual 0.4 mg SUBLINGUAL Q5M PRN (Reason: Chest Pain) Rx Instructions: do not exceed 3 doses per episode Discontinued losartan-hydrochlorothiazide 100-25 mg tablet 1 tab PO DAILY Qty: 30 0RF isosorbide mononitrate 60 mg tablet extended release 24 hr 60 mg PO DAILY doxazosin [Cardura] 2 mg tablet 2 mg PO QPM Discharge Orders: Discharge Order (Routine); Ordered 07/24/23 Ordered By: Mitali Hilton Other Ambulatory Orders: MCT/Event Monitor 30 Days (Routine) Timeframe: 1 Day Facility: [facility] - Location: Radiology Ordered By: Mitali Hilton Referrals: Tree Melton MD [Physician] - 08/05/23 3:30 pm Tam Farah DO [Primary Care Provider] - 07/29/23 8:20 am Discharge Diet: Cardiac Discharge Activity: Limit activity as instructed Patient Instructions: Hydralazine (By mouth) (Apresoline), Atorvastatin (By mouth) (Lipitor, Atorvaliq), Hypertension, Chronic Kidney Disease (DC), Carotid Artery Disease (DC), Cholesterol and Your Health (GEN), Low-Sodium Diet (DC), Opioid Safety Discharge Attestations Time Spent in Discharge Care*: greater than 30 min Status at Discharge: Cognitive status at discharge: cognitively intact, Behavioral status at discharge: cooperative, Quality Metrics Clinical Quality Measures [ No reported AMI, CVA or VTE this stay] Coding Level of Care Code 38755 Total time (in minutes) for Discharge: 40 Diagnoses Essential hypertension I10 Atherosclerosis of coronary artery of [place] heart without angina pectoris I25.10 Abnormal nuclear stress test R94.39 Bradycardia R00.1 Bilateral carotid artery stenosis I65.23 Laterality: bilateral Carotid stenosis, right I65.21 Mixed hyperlipidemia E78.2 Hyperlipidemia type: mixed hyperlipidemia Hypothyroidism E03.9 Chronic kidney disease (CKD) N18.9 CVA (cerebral vascular accident) I63.9 Traumatic compression fracture of L1 lumbar vertebra S32.010A Encounter type: subsequent encounter Traumatic compression fracture of T11 thoracic vertebra, closed, initial encounter S22.080A Encounter type: initial encounter Fracture type: closed Syncope R55 Frequent falls R29.6
--- NOTE | 2023-07-24 10:00 | PC.CHAP ---
Pastoral Care Encounter/Spiritual Assessment Type of Contact [] Declined geospatial information scientist visit [] Patient/Family/Request visit [] Outpatient visit [] Follow-up visit [] Physician referral [] Code/Alert [x] Routine visit [] Staff referral [] Actively dying [] Patient sleeping [] Family support [] [] Out of room [] Palliative care [] [] Receiving care in room [] Pre-surgical visit [] Trauma [] Long length of stay [] ICU visit [] Other: Relational/Emotional Strength [x] Patient feels connected with others/family/visitors/staff [] Distress [] Loneliness/isolation [] Abandonment Spirituality of Patient [x] Person of Aisha [] Attends Pentecostalism of their Aisha [x] Believes in Prayer [] Reads Bible or Roman Catholic materials [] There are Spiritual issues to be addressed Control Board Operator Interventions [x] Prayer [x] Active listening [] Non-anxious presence [x] Spiritual/emotional support [] Crisis/trauma care [] Spiritual counseling [] Bereavement support [] Provided bereavement packet [] Provided Bible/devotional materials [] Provided toy/stuffed animal, coloring book to patient or family member [] Provided Communion [] Anointing/[place] [] Salvation [x] Completed spiritual assessment [] Other: Impact on Illness or Injury [] Angry [] Fearful [] Anxious [] Often cries [] Exhaustion [] Unable to work [] Unable to attend jainism [] Unable to walk/stand [] Unable to read [] Unable to drive [] Unable to eat/drink [] Unable to sleep [] Unable to be with family [] Patient intubated [] Other: Summary Time spent with patient 5 min
--- NOTE | 2023-07-24 11:32 | PC.NURSE ---
Discharge Note Patient discharged to [home] via [w/c to POV] accompanied by []. Discharge instructions reviewed with patient and/or access representative. Mobile pharmacy medications and/or prescriptions provided. Belongings/home medications returned.
== END 2023-07-24 11:32 | disposition home or self-care (01) | DRG 312 ==
LOC: ER 13:43 → CSU 16:05
PROVIDERS: Admitting Provider Hospitalist; Emergency Provider Family Medicine; PCP Internal Medicine; Visit Provider Internal Medicine
DX: R55 Syncope and collapse (principal); S32.019A Unspecified fracture of first lumbar vertebra, initial encounter for closed fracture; S22.080A Wedge compression fracture of T11-T12 vertebra, initial encounter for closed fracture; I25.10 Atherosclerotic heart disease of native coronary artery without angina pectoris; Z95.5 Presence of coronary angioplasty implant and graft; N40.0 Benign prostatic hyperplasia without lower urinary tract symptoms; E78.5 Hyperlipidemia, unspecified; Z86.73 Personal history of transient ischemic attack (TIA), and cerebral infarction without residual deficits; K21.9 Gastro-esophageal reflux disease without esophagitis; I65.23 Occlusion and stenosis of bilateral carotid arteries; M19.90 Unspecified osteoarthritis, unspecified site; G43.709 Chronic migraine without aura, not intractable, without status migrainosus; E03.9 Hypothyroidism, unspecified; I12.9 Hypertensive chronic kidney disease with stage 1 through stage 4 chronic kidney disease, or unspecified chronic kidney disease; N18.32 Chronic kidney disease, stage 3b; Z91.81 History of falling; R00.1 Bradycardia, unspecified; Z66 Do not resuscitate; W19.XXXA Unspecified fall, initial encounter; Y92.9 Unspecified place or not applicable
CPT/HCPCS: 36415; 51702; 70450; 71045; 80048; 80053; 81001; 82550; 83605; 83735; 84100; 84443; 84484; 85025; 87635; 93005; 96372; 97110; 97116; 97161; 97165; 99285; G0378; J1650; J3480; J7040

== ENCOUNTER 2023-07-29 10:12 | Outpatient (CLI) | payer MEDICARE, OTHER, MEDICAID, SELFPAY ==
--- NOTE | 2023-07-29 11:00 | MR_ITS ---
WS: [id number] MRI THORACIC SPINE noncontrast HISTORY: thoracic pain COMPARISON: None available. TECHNIQUE: Multiplanar sequences are performed in sagittal and axial planes. Patient has a known L1 compression fracture that was recently described on 07/17/2023. Mild straightening and curvature thoracic spine. No acute marrow edema noted within the thoracic vert ebral bodies. There is very slight concavity involving the superior endplate of T11 but no marrow danni ma. No retropulsion. Signal within the thoracic cord is normal. There is no cord atrophy or enlargeme nt. No central or foraminal stenosis of any significance. Disc spaces are slightly narrowed. There is no cord compression or contusion. Atherosclerosis thoracic aorta. Mild ectasia measuring up to 3.1 cm in diameter. IMPRESSION: 1. No acute thoracic spine fracture. 2. Reidentified is the acute L1 compression fracture that was recently described on 07/17/2023. 3. Mild curvature thoracic spine. No cord compression. No disc protrusions.
== END 2023-07-29 10:13 | disposition home or self-care (01) ==
LOC: RAD 10:13
PROVIDERS: PCP Internal Medicine; Visit Provider Physician Assistant
DX: M54.6 Pain in thoracic spine (principal); S32.010A Wedge compression fracture of first lumbar vertebra, initial encounter for closed fracture; X58.XXXA Exposure to other specified factors, initial encounter
CPT/HCPCS: 72146

== ENCOUNTER 2023-07-29 10:48 | Emergency (ER) | payer MEDICARE, OTHER, MEDICAID, SELFPAY ==
[2023-07-29 10:49] VITALS: BP 161/82; PULSE 112; RESP 20; TEMP 36.3; O2SAT 97; BMI 23.6
--- NOTE | 2023-07-29 10:50 | CT_ITS ---
WS: [id number] CT HEAD TECHNIQUE: Noncontrast CT of the head obtained from the skullbase to the vertex. CLINICAL INFORMATION: cva COMPARISON: CT 07/21/2023 DLP: 1023.[address] scans at [facility] use at least one of these dose optimization techniques: automated e xposure control; mA and/or kV adjustment per patient size (includes targeted exams where dose is matc hed to clinical indication); or iterative reconstruction. FINDINGS: No evidence of intracranial hemorrhage or mass effect. Ventricular system and basal cisterns are pool nt. Moderate small vessel changes with moderate parenchymal volume loss. No extra-axial fluid collect ions. No evidence of mass or mass effect. Tiny chronic lacunar infarct RIGHT caudate. Paranasal sinuses and mastoid air cells are well aerated. .Normal visualized soft tissues. Intracrani al vascular calcification. IMPRESSION: 1. No evidence of intracranial hemorrhage or mass effect. 2. Moderate small vessel changes with moderate parenchymal volume loss. 3. Intracranial vascular calcification. 4. No acute intracranial findings. Notified Corin Ledesma MD at 07/29/2023 11:32 AM.
--- NOTE | 2023-07-29 10:51 | ECG_ITS ---
[facility] Test Date: 2023-07-29 Pat Name: Des Fuller Department: Room: Gender: Male Respiratory Support Technician: : 1935 Requested By: Corin Ledesma Order Number: [id number] Mar MD: Tree Melton M.D. Measurements Intervals [place] Rate: 97 P: 57 [place]: 155 QRS: 81 QRSD: 83 T: 56 QT: 338 QTc: 431 Interpretive Statements SINUS RHYTHM ST DEVIATION AND MODERATE T-WAVE ABNORMALITY, CONSIDER LATERAL ISCHEMIA [-0.1+ mV T-WAVE IN I/aVL/V5/V6] Compared to ECG 07/21/2023 18:35:10 Possible ischemia now present Sinus tachycardia no longer present T-wave abnormality still present Electronically Signed On 07-29-2023 21:38:03 FISH CONSERVATIONIST by Tree Melton M.D. [email or web address]
--- NOTE | 2023-07-29 10:54 | ED_ITS ---
HPI - Headache 2 General: Chief Complaint: Headache Stated Complaint: stroke like symptoms Time Seen by Provider: 07/29/23 10:49 Source: patient Mode of arrival: ambulatory Limitations: no limitations History of Present Illness: 88-year-old male who is checking in [facility] for an MRI of his low back and called a stroke alert as he had some slurred speech when checking and complained of a headache patient's speech is at his baseline he states that he has had a headache for few days its mild in nature denies any weakness denies any worse improved factors. Associated symptoms: Deny chest pain, fever(s), nausea, rash or vomiting Review of Systems 2 Const: Denies: fever(s) or chills Eyes: Denies: blurry vision or eye discomfort ENMT: Denies: throat pain or dental pain Card: Denies: chest pain Resp: Denies: dyspnea GI: Denies: abdominal pain, nausea or vomiting Musc: Denies: neck pain or back pain Skin/Breast: Denies: rash Neuro: Reports: headache(s) Psych: Denies: depression PFSH ED 2 PFSH: Medical History Hypothyroidism Chronic kidney disease (CKD) Abnormal nuclear stress test Hypertension Coronary artery disease Hyperlipidemia CVA (cerebral vascular accident) GERD (gastroesophageal reflux disease) Bilateral carotid artery stenosis Osteoarthritis Urolithiasis BPH (benign prostatic hyperplasia) Neurodegenerative gait disorder Sacroiliitis Chronic migraine without aura, intractable, with status migrainosus Surgical History History of heart artery stent x8 H/O lithotripsy Family History Father , AT AGE 72 CAD (coronary artery disease) Stroke Mother , AT AGE 78 CAD (coronary artery disease) Other Hyperlipidemia Hypertension Denies family history of Diabetes Clotting disorder Dementia Chronic kidney disease (CKD) Anesthesia complication Bleeding disorder Lung disease Cancer Social History Smoking and tobacco/nicotine status: never used tobacco/nicotine Alcohol intake: never Substance/Drug Use: never Additional social history: Girlfriend lives with him Adopted: No Caregiver/support person: No Lives independently: Yes Marital status: / Current occupational status: retired Physical Exam 2 Const: COMMON NORMALS: no acute distress, patient oriented x3 and healthy appearing HENMT: COMMON NORMALS: normocephalic and atraumatic HEAD & SCALP: n ormocephalic and atraumatic Eye: COMMON NORMALS: Equal, round and reactive pupils present and EOMs intact bilaterally PUPIL: Yes Equal, round and reactive pupils present Neck/C-Spine: COMMON NORMALS: full ROM and supple Chest: COMMONS NORMALS: normal inspection of the chest and normal palpation of entire chest wall Resp: COMMON NORMALS: normal respiratory effort, No retractions, No use of accessory muscles and clear to auscultation bilaterally AUSCULTATION: clear to auscultation bilaterally Cardio: COMMON NORMALS: regular rate, regular rhythm and No murmurs present (Cardio) RATE: regular rate RHYTHM: regular rhythm GI: COMMON NORMALS: Normal to inspection, nondistended, normoactive bowel sounds present, Soft to palpation, non-tender and no masses PALPATION: Yes Soft to palpation Extremity: COMMON NORMALS: normal to inspection and full ROM Neuro: COMMON NORMALS: patient oriented x3, moves all extremities and no focal motor deficits Psych: COMMON NORMALS: mental status grossly normal, Normal thought process present and cooperative THOUGHT PROCESS: Normal thought process present Skin: COMMON NORMALS: no rashes or lesions noted and no wounds GENERAL SKIN EXAM: no rashes or lesions noted Course 2 Vital Signs: Vital signs: Vital Signs Temperature 97.4 F L 07/29/23 10:49 Pulse Rate 70 07/29/23 11:34 Respiratory Rate 20 H 07/29/23 10:49 Blood Pressure 161/82 07/29/23 11:34 Pulse Oximetry 96 07/29/23 11:34 Oxygen Delivery Me thod Room Air 07/29/23 11:34 MDM - Headache Medical Decision Making Patient presents here headache he has no signs of stroke here I spoke to Dr. Moreno who evaluated him as well who saw no signs of a stroke his head CT here is normal we will discharge him back to the OB so he can receive his MRI of his L-spine he has no signs of subarachnoid hemorrhage or meningitis. Medical Records I reviewed the patient's medical records. Lab Data I reviewed the patient's lab results. 07/29/23 11:00 07/29/23 11:00 Laboratory Results WBC 6.62 10^3/uL (3.29-11.43) 07/29/23 11:00 RBC 4.75 10^6/uL (3.85-5.65) 07/29/23 11:00 Hgb 14.80 g/dL (11.27-16.99) 07/29/23 11:00 Hct 43.8 % (37-53) 07/29/23 11:00 MCV 92.2 fl (82-101) 07/29/23 11:00 MCH 31.2 pg (27-33) 07/29/23 11:00 MCHC 33.8 g/dL (30-55) 07/29/23 11:00 RDW 13.5 % (12.1-15.1) 07/29/23 11:00 Plt Count 212 10^3/cmm (157-399) 07/29/23 11:00 MPV 8.7 fL (7.4-10.4) 07/29/23 11:00 Neut % (Auto) 81.5 % 07/29/23 11:00 Lymph % (Auto) 10.0 % 07/29/23 11:00 [place] % (Auto) 6.8 % 07/29/23 11:00 Eos % (Auto) 1.1 % 07/29/23 11:00 Baso % (Auto) 0.3 % 07/29/23 11:00 Neut # (Auto) 5.40 10^3/uL (1.8-7.7) 07/29/23 11:00 Lymph # (Auto) 0.7 10^3/uL (0.8-4.8) L 07/29/23 11:00 [place] # (Auto) 0.5 10^3/uL (0.2-0.9) 07/29/23 11:00 Eos # (Auto) 0.1 10^3/uL (0.0-0.8) 07/29/23 11:00 Baso # (Auto) 0.0 10^3/uL (0.0-0.1) 07/29/23 11:00 Nucleated RBC % (auto) 0 % 07/29/23 11:00 Nucleated RBCs # 0.0 /100WBC 07/29/23 11:00 PT 13.60 SECONDS (12.1-14.9) 07/29/23 11:00 INR 1.01 (0.8-1.2) 07/29/23 11:00 Sodium 137 mmol/L (136-145) 07/29/23 11:00 Potassium 3.5 mmol/L (3.5-5.1) 07/29/23 11:00 Chloride 101 mmol/L (98-107) 07/29/23 11:00 Carbon Dioxide 21 mmol/L (22-29) L 07/29/23 11:00 Anion Gap 18.5 (5-19) 07/29/23 11:00 BUN 22 mg/dL (8-23) 07/29/23 11:00 Creatinine 1.7 mg/dL (0.7-1.2) H 07/29/23 11:00 GFR Calculation Not Reportable 07/29/23 11:00 Glucose 155 mg/dL (65-115) H 07/29/23 11:00 Calculated Osmolality 290 mOsm/kg (285-295) 07/29/23 11:00 Calcium 9.5 mg/dL (8.5-10.5) 07/29/23 11:00 Total Bilirubin 0.4 mg/dL (0.15-1.2) 07/29/23 11:00 AST 29 U/L (0-40) 07/29/23 11:00 ALT 29 U/L (0-41) 07/29/23 11:00 Alkaline Phosphatase 142 U/L (40-130) H 07/29/23 11:00 Total Protein 7.6 g/dL (6.6-8.7) 07/29/23 11:00 Albumin 3.8 g/dL (3.5-5.2) 07/29/23 11:00 Globulin 3.8 g/dL (1.3-4.6) 07/29/23 11:00 No radiology studies performed this visit EKG Data EKG 1: I personally reviewed and interpreted this EKG as follows: EKG interpretation date: 07/29/23 EKG interpretation time: 10:54 Interpretation: nsr hr [address] or t wave abnomalities qrs 83 qtc 393 Discharge Plan Discharge Patient Disposition: Home Clinical Impression: Headache Prescriptions: No Action hydrocodone-acetaminophen 5-325 mg tablet 1 tab PO Q4H PRN (Reason: Lumbar and Thoracic fracture pain) 5 Days Qty: 30 0RF clopidogrel 75 mg tablet 75 mg PO QAM levothyroxine 50 mcg tablet 50 mcg PO QAM tamsulosin 0.4 mg capsule 0.4 mg PO DAILY gabapentin 100 mg capsule 100 mg PO DAILY cetirizine 10 mg Tablet 10 mg PO DAILY PRN (Reason: Allergic Symptoms) acetaminophen 500 mg Tablet 1,000 mg PO Q4H PRN (Reason: Pain) nitroglycerin [Nitrostat] 0.4 mg Tablet, Sublingual 0.4 mg SUBLINGUAL Q5M PRN (Reason: Chest Pain) Rx Instructions: do not exceed 3 doses per episode losartan 50 mg Tablet 100 mg PO DAILY Qty: 60 0RF atorvastatin 40 mg Tablet 80 mg PO BEDTIME Qty: 30 0RF isosorbide mononitrate 30 mg Tablet Extended Release 24 Hr 30 mg PO DAILY Qty: 30 0RF hydralazine 25 mg Tablet 75 mg PO TID Qty: 270 0RF aspirin 81 mg Tablet,Delayed Release (Dr/Ec) 81 mg PO DAILY Qty: 30 0RF Discharge Orders: Discharge ED (Routine); Ordered 07/29/23 Ordered By: Corin Ledesma Referrals: Tam Farah DO [Primary Care Provider] - 1-3 days Discharge Diet: Advance as tolerated Discharge Activity: Resume usual activity Patient Instructions: General Headache (ED) Coding Level of Care Code ED Childcare Worker for Chg Emma NIH stroke score NIHSS Level Of Consciousness - 1a: 0 Level Of Consciousness Questions - 1b: Both Correct Level Of Consciousness Commands - 1c: Both Correct Best Gaze - 2: Normal Visual Ramires - 3: No Visual Loss Facial Palsy - 4: Normal Motor Arm Right - 5: No Drift Motor Arm Left - 5: No Drift Motor Leg Right - 6: No Drift Motor Leg Left - 6: No Drift Limb Ataxia - 7: Absent Sensory - 8: Normal Best Language - 9: No Aphasia Dysarthia - 10: Normal Extinction And Inattention - 11: 0 Score Total Score: 0
[2023-07-29 11:11] LABS: Basophils % 0.3 %; Eosinophils # 0.1 10^3/uL (0.0-0.8); Eosinophils % 1.1 %; Hematocrit 43.8 % (37-53); Lymphocytes # 0.7 10^3/uL (0.8-4.8); Mean Corpuscular HGB Conc 33.8 g/dL (30-55); Mean Corpuscular Hemoglobin 31.2 pg (27-33); Mean Corpuscular Volume 92.2 fl (82-101); Mean Platelet Volume 8.7 fL (7.4-10.4); Monocytes # 0.5 10^3/uL (0.2-0.9); Monocytes % 6.8 %; Neutrophils % 81.5 %; Nucleated Red Blood Cells % 0 %; Platelet Count 212 10^3/cmm (157-399); Red Blood Count 4.75 10^6/uL (3.85-5.65); Red Cell Distribution Width 13.5 % (12.1-15.1); White Blood Count 6.62 10^3/uL (3.29-11.43)
[2023-07-29 11:20] LABS: INR 1.01 (0.8-1.2)
[2023-07-29 11:25] LABS: Alanine Aminotransferase 29 U/L (0-41); Albumin Level 3.8 g/dL (3.5-5.2); Alkaline Phosphatase 142 U/L (40-130); Anion Gap 18.5 (5-19); Aspartate Amino Transferase 29 U/L (0-40); Blood Urea Nitrogen 22 mg/dL (8-23); Calcium 9.5 mg/dL (8.5-10.5); Carbon Dioxide 21 mmol/L (22-29); Chloride 101 mmol/L (98-107); Globulin 3.8 g/dL (1.3-4.6); Glucose 155 mg/dL (65-115); Osmolality Calculated 290 mOsm/kg (285-295); Potassium 3.5 mmol/L (3.5-5.1); Sodium 137 mmol/L (136-145); Total Bilirubin 0.4 mg/dL (0.15-1.2); Total Protein 7.6 g/dL (6.6-8.7)
[2023-07-29 11:34] VITALS: BP 161/82; PULSE 70; O2SAT 96
[2023-07-29 12:09] VITALS: BP 120/56; PULSE 82; O2SAT 96
== END 2023-07-29 12:00 | disposition home or self-care (01) ==
PROVIDERS: Emergency Provider Emergency Medicine; PCP Internal Medicine
DX: R51.9 Headache, unspecified (principal); Z79.02 Long term (current) use of antithrombotics/antiplatelets; Z79.82 Long term (current) use of aspirin; I12.9 Hypertensive chronic kidney disease with stage 1 through stage 4 chronic kidney disease, or unspecified chronic kidney disease; N18.9 Chronic kidney disease, unspecified; I25.10 Atherosclerotic heart disease of native coronary artery without angina pectoris; E78.5 Hyperlipidemia, unspecified; Z86.73 Personal history of transient ischemic attack (TIA), and cerebral infarction without residual deficits
CPT/HCPCS: 70450; 80053; 85025; 85610; 93005; 99284

== ENCOUNTER 2023-08-02 21:34 | Emergency (ER) | payer MEDICARE, OTHER, MEDICAID, SELFPAY ==
[2023-08-02 21:42] VITALS: BP 171/77; PULSE 91; RESP 22; TEMP 36.4; O2SAT 99; BMI 23.6
--- NOTE | 2023-08-02 21:47 | W.ED.GENADLT ---
HPI - General Adult General: Chief complaint: General Medical Stated complaint: abdomen pain, possible impaction Time Seen by Provider: 08/02/23 21:47 History of Present Illness: 88-year-old male patient comes in for concerns of constipation. Patient was seen at [facility] yesterday and was recommended to use Metamucil to help with constipation. Patient appears nontoxic. Patient appears in moderate pain. Further discussion with patient noted that patient has a vertebral compression fracture. Patient has stopped his medication about 3 to 4 days ago due to concerns he may be constipated. Since then patient has had increasing pain and discomfort and with increasing poor appetite and mobility. Review of Systems General: Reports: 10 or more systems reviewed and unremarkable except in HPI and below Musc: Reports: back pain PFSH ED PFSH: Medical History Hypothyroidism Chronic kidney disease (CKD) Abnormal nuclear stress test Hypertension Coronary artery disease Hyperlipidemia CVA (cerebral vascular accident) GERD (gastroesophageal reflux disease) Bilateral carotid artery stenosis Osteoarthritis Urolithiasis BPH (benign prostatic hyperplasia) Neurodegenerative gait disorder Sacroiliitis Chronic migraine without aura, intractable, with status migrainosus Surgical History History of heart artery stent x8 H/O lithotripsy Family History Father , AT AGE 72 CAD (coronary artery disease) Stroke Mother , AT AGE 78 CAD (coronary artery disease) Other Hyperlipidemia Hypertension Denies family history of Diabetes Clotting disorder Dementia Chronic kidney disease (CKD) Anesthesia complication Bleeding disorder Lung disease Cancer Social History Smoking and tobacco/nicotine status: never used tobacco/nicotine Alcohol intake: never Substance/Drug Use: never Additional social history: Girlfriend lives with him Adopted: No Caregiver/support person: No Lives independently: Yes Marital status: / Current occupational status: retired Physical Exam Const: COMMON NORMALS: alert HENMT: COMMON NORMALS: normocephalic HEAD & SCALP: normocephalic Neck/C-Spine: COMMON NORMALS: full ROM Resp: COMMON NORMALS: normal respiratory effort and clear to auscultation bilaterally AUSCULTATION: clear to auscultation bilaterally Cardio: COMMON NORMALS: regular rate and regular rhythm RATE: regular rate RHYTHM: regular rhythm Back/Pelvis: LUMBAR SPINE/LOWER BACK: Yes lumbar spinal tenderness Lumbar spinal tenderness location: L1 Extremity: COMMON NORMALS: normal to inspection Neuro: SENSORIUM/ORIENTATION: Yes alert Skin: COMMON NORMALS: turgor normal GENERAL SKIN EXAM: turgor normal Course Vital Signs: Vital signs: Vital Signs Temperature 97.5 F L 08/02/23 21:42 Pulse Rate 64 08/02/23 23:18 Respiratory Rate 22 H 08/02/23 23:09 Blood Pressure 182/88 08/02/23 23:18 Pulse Oximetry 95 08/02/23 23:18 Oxygen Delivery Me thod Room Air 08/02/23 23:18 [facility] - General Adult Medical Decision Making 88-year-old male patient with a history of lumbar vertebral 1 fracture 2 weeks old. Patient had stopped taking his pain medication because he had thought he was constipated. Patient has had increased pain but has not been able to manage at home. Patient came in tonight because he thought he was constipated to the point that he was impacted. Patient been using some enemas with no relief. Patient appears in moderate to severe pain. On exam abdomen was soft, rectal exam was unremarkable. Normal sphincter tone. Vital signs are normal except for elevated blood pressure. Differential diagnosis includes constipation, uncontrolled pain due to vertebral fracture, hemorrhoid, bowel obstruction. CBC and CMP were unremarkable. CT of the abdomen pelvis noted no abnormalities with some mild worsening of the lumbar vertebral fracture of L1. Reviewed exam with patient and family with recommendations for treatment of pain. Patient and family both reported understanding and agreed to plan. Will try tramadol 50 mg 3 times a day to control pain. Recommend the use of acetaminophen for further pain control. Recommended healthy diet and the use of Colace otherwise to help prevent constipation. Patient and family both reported understanding agreed to plan. Lab Data 08/02/23 22:29 08/02/23 22:29 Radiology Impressions Abdomen/Pelvis CT 08/02/23 21:59 IMPRESSION: 1. No acute findings. No evidence for bowel obstruction or constipation. 2. Slightly increased 4.2 cm abdominal aortic aneurysm. 3. Worsened L1 compression fracture. Laboratory Results WBC 8.35 10^3/uL (3.29-11.43) 08/02/23 22: RBC 4.38 10^6/uL (3.85-5.65) 08/02/23 22: Hgb 13.60 g/dL (11.27-16.99) 08/02/23 22: Hct 40.2 % (37-53) 08/02/23 22: MCV 91.8 fl (82-101) 08/02/23 22: MCH 31.1 pg (27-33) 08/02/23 22: MCHC 33.8 g/dL (30-55) 08/02/23 22: RDW 13.4 % (12.1-15.1) 08/02/23: Plt Count 228 10^3/cmm (157-399) 08/02/23: MPV 8.9 fL (7.4-10.4) 08/02/23: Neut % (Auto) 80.5 % 08/02/23 22: Lymph % (Auto) 10.5 % 08/02/23: [place] % (Auto) 7.2 % 08/02/23 22: Eos % (Auto) 1.0 % 08/02/23 22: Baso % (Auto) 0.4 % 08/02/23: Neut # (Auto) 6.73 10^3/uL (1.8-7.7) 08/02/23: Lymph # (Auto) 0.9 10^3/uL (0.8-4.8) 08/02/23: [place] # (Auto) 0.6 10^3/uL (0.2-0.9) 08/02/23 22: Eos # (Auto) 0.1 10^3/uL (0.0-0.8) 08/02/23: Baso # (Auto) 0.0 10^3/uL (0.0-0.1) 08/02/23: Nucleated RBC % (auto) 0 % 08/02/23: Nucleated RBCs # 0.0 /100WBC 08/02/23 22: Sodium 136 mmol/L (136-145) 08/02/23 22: Potassium 4.1 mmol/L (3.5-5.1) 08/02/23 22:29 Chloride 100 mmol/L (98-107) 08/02/23 22:29 Carbon Dioxide 24 mmol/L (22-29) 08/02/23 22:29 Anion Gap 16.1 (5-19) 08/02/23 22:29 BUN 28 mg/dL (8-23) H 08/02/23 22:29 Creatinine 2.1 mg/dL (0.7-1.2) H 08/02/23 22:29 GFR Calculation Not Reportable 08/02/23 22:29 Glucose 147 mg/dL (65-115) H 08/02/23 22:29 POC Glucose 133 mg/dL (70-110) H 08/02/23 22:42 Calculated Osmolality 290 mOsm/kg (285-295) 08/02/23 22: Calcium 9.3 mg/dL (8.5-10.5) 08/02/23 22: Total Bilirubin 0.4 mg/dL (0.15-1.2) 08/02/23 22:29 AST 24 U/L (0-40) 08/02/23 22:29 ALT 24 U/L (0-41) 08/02/23 22:29 Alkaline Phosphatase 131 U/L (40-130) H 08/02/23 22:29 Total Protein 7.3 g/dL (6.6-8.7) 08/02/23 22:29 Albumin 3.8 g/dL (3.5-5.2) 08/02/23 22: Globulin 3.5 g/dL (1.3-4.6) 08/02/23 22: Lipase 49 U/L (13-60) 08/02/23 22:29 All radiology interpretation(s) finalized by discharge Discharge Plan Discharge Patient Disposition: Home Clinical Impression: Traumatic compression fracture of L1 lumbar vertebra Qualifiers: Encounter type: subsequent encounter Fracture healing: with delayed healing Qualified Code(s): S32.010G - Wedge compression fracture of first lumbar vertebra, subsequent encounter for fracture with delayed healing Condition: Stable Prescriptions: New tramadol 50 mg tablet 50 mg PO Q8H PRN (Reason: pain) Qty: 30 0RF Colace 100 mg capsule 100 mg PO BID Qty: 60 0RF No Action hydrocodone-acetaminophen 5-325 mg tablet 1 tab PO Q4H PRN (Reason: Lumbar and Thoracic fracture pain) 5 Days Qty: 30 0RF clopidogrel 75 mg tablet 75 mg PO QAM levothyroxine 50 mcg tablet 50 mcg PO QAM tamsulosin 0.4 mg capsule 0.4 mg PO DAILY gabapentin 100 mg capsule 100 mg PO DAILY cetirizine 10 mg Tablet 10 mg PO DAILY PRN (Reason: Allergic Symptoms) acetaminophen 500 mg Tablet 1,000 mg PO Q4H PRN (Reason: Pain) nitroglycerin [Nitrostat] 0.4 mg Tablet, Sublingual 0.4 mg SUBLINGUAL Q5M PRN (Reason: Chest Pain) Rx Instructions: do not exceed 3 doses per episode losartan 50 mg Tablet 100 mg PO DAILY Qty: 60 0RF atorvastatin 40 mg Tablet 80 mg PO BEDTIME Qty: 30 0RF isosorbide mononitrate 30 mg Tablet Extended Release 24 Hr 30 mg PO DAILY Qty: 30 0RF hydralazine 25 mg Tablet 75 mg PO TID Qty: 270 0RF aspirin 81 mg Tablet,Delayed Release (Dr/Ec) 81 mg PO DAILY Qty: 30 0RF Discharge Orders: Discharge ED (Routine); Ordered 08/02/23 Ordered By: Marcus Hdez Referrals: Tam Farah DO [Primary Care Provider] - Discharge Diet: Usual diet Discharge Activity: Increase activity as tolerated Patient Instructions: Vertebral Compression Fracture (ED), Pain Management Activity Restrictions/Additional Instructions: Take tramadol 50 mg 3 times a day to control pain. Use a stool softener daily to help prevent constipation. Drink plenty of water and eat a healthy diet. Use acetaminophen as needed for breakthrough pain. Follow-up with primary care for further instructions. Return to ED for worsening symptoms such as high fever, increased shortness of breath, or new concerns. Coding Level of Care Code ED Print Cutter for Rah Carter
--- NOTE | 2023-08-02 21:59 | CTR_ITS ---
PROCEDURE INFORMATION: Exam: CT Abdomen And Pelvis Without Contrast Exam date and time: 08/02/2023 10:09 PM Age: 88 years old Clinical indication: Prior surgery; Surgery date: 6+ months; Surgery type: Coronary stents; Patient HX: C/O rectal pain. Diagnosed with constipation at outpt clinic yesterday. ; Additional info: Constipation, R/O bowel obs TECHNIQUE: Imaging protocol: Computed tomography of the abdomen and pelvis without contrast. Radiation optimization: All CT scans at this facility use at least one of these dose optimization techniques: automated exposure control; mA and/or kV adjustment per patient size (includes targeted exams where dose is matched to clinical indication); or iterative reconstruction. COMPARISON: CT abdomen pelvis wo con [id number] 28/02/2023 13:27 RADIATION DOSE METRICS: Total DLP (mGy-cm): 495.53 FINDINGS: Lungs: Calcified granulomas in the lung bases. Coronary arteries: Coronary artery calcifications. Liver: Normal. No mass. Gallbladder and bile ducts: Normal. No calcified stones. No ductal dilation. Pancreas: Normal. No ductal dilation. Spleen: Calcified granulomas in the spleen. Adrenal glands: Normal. No mass. Kidneys and ureters: 1 mm left renal calculus. The kidneys are otherwise unremarkable. No ureteral calculus or hydronephrosis. Chronic perinephric stranding. Stomach and bowel: Unremarkable. No obstruction. No mucosal thickening. Appendix: The appendix is visualized and is normal. Intraperitoneal space: Unremarkable. No free air. No significant fluid collection. Vasculature: Arterial calcifications. 4.2 cm infrarenal aortic aneurysm. 4.0 cm proximally aortic aneurysm. Lymph nodes: Calcified mediastinal lymph nodes. Urinary bladder: Unremarkable as visualized. Reproductive: Mildly enlarged prostate with calcifications. Bones/joints: Increased moderate compression fracture of superior L1. Stable mild compression of T11. Lumbar scoliosis. Soft tissues: Unremarkable. CT/CT abdomen pelvis wo con [id number] IMPRESSION: 1. No acute findings. No evidence for bowel obstruction or constipation. 2. Slightly increased 4.2 cm abdominal aortic aneurysm. 3. Worsened L1 compression fracture.
[2023-08-02] MEDS: sodium chloride 0.9% 250 ML IV (22:32)
[2023-08-02 22:34] LABS: Basophils % 0.4 %; Eosinophils # 0.1 10^3/uL (0.0-0.8); Hematocrit 40.2 % (37-53); Lymphocytes # 0.9 10^3/uL (0.8-4.8); Lymphocytes % 10.5 %; Mean Corpuscular HGB Conc 33.8 g/dL (30-55); Mean Corpuscular Hemoglobin 31.1 pg (27-33); Mean Corpuscular Volume 91.8 fl (82-101); Mean Platelet Volume 8.9 fL (7.4-10.4); Monocytes # 0.6 10^3/uL (0.2-0.9); Monocytes % 7.2 %; Neutrophils # 6.73 10^3/uL (1.8-7.7); Neutrophils % 80.5 %; Nucleated Red Blood Cells % 0 %; Platelet Count 228 10^3/cmm (157-399); Red Blood Count 4.38 10^6/uL (3.85-5.65); Red Cell Distribution Width 13.4 % (12.1-15.1); White Blood Count 8.35 10^3/uL (3.29-11.43)
[2023-08-02 22:46] LABS: Glucose Point of Care 133 mg/dL (70-110)
[2023-08-02 22:52] VITALS: BP 169/75; PULSE 61; O2SAT 96
[2023-08-02 22:55] LABS: Alanine Aminotransferase 24 U/L (0-41); Albumin Level 3.8 g/dL (3.5-5.2); Alkaline Phosphatase 131 U/L (40-130); Anion Gap 16.1 (5-19); Aspartate Amino Transferase 24 U/L (0-40); Blood Urea Nitrogen 28 mg/dL (8-23); Calcium 9.3 mg/dL (8.5-10.5); Carbon Dioxide 24 mmol/L (22-29); Chloride 100 mmol/L (98-107); Globulin 3.5 g/dL (1.3-4.6); Glucose 147 mg/dL (65-115); Lipase 49 U/L (13-60); Osmolality Calculated 290 mOsm/kg (285-295); Potassium 4.1 mmol/L (3.5-5.1); Sodium 136 mmol/L (136-145); Total Bilirubin 0.4 mg/dL (0.15-1.2); Total Protein 7.3 g/dL (6.6-8.7)
[2023-08-02 23:09] VITALS: RESP 22; O2SAT 96
[2023-08-02] MEDS: morphine 4 mg/mL SDV 1 mL 2 MG IVP (23:09)
[2023-08-02 23:18] VITALS: BP 182/88; PULSE 64; O2SAT 95
[2023-08-02 23:37] VITALS: RESP 20; O2SAT 95
[2023-08-02] MEDS: morphine 4 mg/mL SDV 1 mL IVP (23:37)
[2023-08-02 23:40] VITALS: BP 164/73; PULSE 68; RESP 20; O2SAT 96
[2023-08-03 00:16] VITALS: BP 157/71; PULSE 72; RESP 18; O2SAT 96
== END 2023-08-03 00:23 | disposition home or self-care (01) ==
PROVIDERS: Emergency Provider Nurse Practitioner Family; PCP Internal Medicine
DX: S32.010A Wedge compression fracture of first lumbar vertebra, initial encounter for closed fracture (principal); Z79.02 Long term (current) use of antithrombotics/antiplatelets; Z79.82 Long term (current) use of aspirin; I12.9 Hypertensive chronic kidney disease with stage 1 through stage 4 chronic kidney disease, or unspecified chronic kidney disease; N18.9 Chronic kidney disease, unspecified; I25.10 Atherosclerotic heart disease of native coronary artery without angina pectoris; E78.5 Hyperlipidemia, unspecified; Z86.73 Personal history of transient ischemic attack (TIA), and cerebral infarction without residual deficits; X58.XXXA Exposure to other specified factors, initial encounter
CPT/HCPCS: 36415; 36416; 74176; 80053; 82962; 83690; 85025; 96374; 96375; 99285; J2270; J7050

== ENCOUNTER 2023-08-04 10:10 | Emergency (ER) | payer MEDICARE, OTHER, MEDICAID, SELFPAY ==
--- NOTE | 2023-08-04 10:13 | ECG_ITS ---
[facility] Test Date: 2023-08-04 Pat Name: Des Fuller Department: Room: Gender: Male Family Court Counsellor: : 1935 Requested By: Puneet Ly Order Number: [id number] Mar MD: Gómez Garcia M.D. Measurements Intervals [place] Rate: 55 P: 51 CT: 153 QRS: 53 QRSD: 93 T: 72 QT: 447 QTc: 431 Interpretive Statements SINUS BRADYCARDIA MINIMAL ST DEPRESSION [0.025+ mV ST DEPRESSION] Compared to ECG 07/29/2023 10:54:51 ST (T wave) deviation now present Sinus rhythm no longer present T-wave abnormality no longer present Possible ischemia no longer present Electronically Signed On 08-04-2023 18:30:03 GRAPHIC SPECIALIST by Gómez Garcia M.D. [id number] f
--- NOTE | 2023-08-04 10:15 | XRR_ITS ---
PROCEDURE INFORMATION: Exam: XR Chest Exam date and time: 08/04/2023 10:21 AM Age: 88 years old Clinical indication: Shortness of breath; Additional info: Weakness/cough TECHNIQUE: Imaging protocol: Radiologic exam of the chest. Views: 1 view. COMPARISON: CR XR chest 1V portable [id number] 07/21/2023 1:03 PM FINDINGS: Lungs: Stable granulomatous findings. No consolidation. Pleural spaces: Unremarkable. No pleural effusion. No pneumothorax. Heart/Mediastinum: Unremarkable. No cardiomegaly. Bones/joints: No acute findings. West-shaped thorax. XR/XR chest 1V portable [id number] IMPRESSION: No acute findings.
[2023-08-04 10:19] VITALS: BP 146/82; PULSE 59; RESP 18; TEMP 36.9; O2SAT 95; BMI 23.6
[2023-08-04 10:21] VITALS: BP 146/82; PULSE 52; O2SAT 95
[2023-08-04 10:26] LABS: Basophils % 0.4 %; Eosinophils # 0.1 10^3/uL (0.0-0.8); Eosinophils % 1.3 %; Hematocrit 40.6 % (37-53); Lymphocytes # 0.8 10^3/uL (0.8-4.8); Lymphocytes % 11.4 %; Mean Corpuscular HGB Conc 33.5 g/dL (30-55); Mean Corpuscular Hemoglobin 30.6 pg (27-33); Mean Corpuscular Volume 91.4 fl (82-101); Mean Platelet Volume 9.1 fL (7.4-10.4); Monocytes # 0.5 10^3/uL (0.2-0.9); Monocytes % 6.8 %; Neutrophils # 5.38 10^3/uL (1.8-7.7); Neutrophils % 79.8 %; Nucleated Red Blood Cells % 0 %; Platelet Count 260 10^3/cmm (157-399); Red Blood Count 4.44 10^6/uL (3.85-5.65); Red Cell Distribution Width 13.3 % (12.1-15.1); White Blood Count 6.75 10^3/uL (3.29-11.43)
[2023-08-04 10:37] LABS: INR 0.98 (0.8-1.2)
[2023-08-04 10:38] LABS: Partial Thromboplastin Time 26.8 SECONDS (23.9-36.7)
[2023-08-04 10:42] LABS: Troponin(5th) Baseline 45 ng/L (0-15)
[2023-08-04 10:51] VITALS: BP 150/63; PULSE 52; O2SAT 94
[2023-08-04 10:51] LABS: Alanine Aminotransferase 19 U/L (0-41); Albumin Level 3.7 g/dL (3.5-5.2); Alkaline Phosphatase 122 U/L (40-130); Anion Gap 14.9 (5-19); Aspartate Amino Transferase 23 U/L (0-40); Blood Urea Nitrogen 22 mg/dL (8-23); Calcium 9.3 mg/dL (8.5-10.5); Carbon Dioxide 25 mmol/L (22-29); Chloride 100 mmol/L (98-107); Globulin 3.4 g/dL (1.3-4.6); Glucose 128 mg/dL (65-115); NT Pro B Type Natriuretic Pept 1532 pg/mL (0-450); Osmolality Calculated 287 mOsm/kg (285-295); Potassium 3.9 mmol/L (3.5-5.1); Sodium 136 mmol/L (136-145); Total Bilirubin 0.5 mg/dL (0.15-1.2); Total Protein 7.1 g/dL (6.6-8.7)
[2023-08-04] MEDS: FUROsemide 10 mg/mL SDV 4mL 40 MG IVP (11:20)
[2023-08-04 11:21] VITALS: BP 142/66; PULSE 50; O2SAT 95
[2023-08-04 11:51] VITALS: BP 158/82; PULSE 55; O2SAT 97
--- NOTE | 2023-08-04 11:56 | PC.PHAR ---
pts family states they are unsure of the names of all his medications states he was just in here and states whatever is on that list is what he takes except states he no longer takes the gabapentin states he has been out for a month or so ext shows last filled 100mg tid on 04/23/30d/s
--- NOTE | 2023-08-04 12:15 | ECG_ITS ---
[facility] Test Date: 2023-08-04 Pat Name: Des Fuller Department: Room: Gender: Male Gleason Operator: : 1935 Requested By: Puneet Ly Order Number: [id number] Mar MD: Gómez Garcia M.D. Measurements Intervals [place] Rate: 44 P: 44 SD: 158 QRS: 57 QRSD: 89 T: 80 QT: 482 QTc: 412 Interpretive Statements SINUS BRADYCARDIA NONSPECIFIC ST & T-WAVE ABNORMALITY Compared to ECG 08/04/2023 10:13:42 T-wave abnormality now present ST (T wave) deviation no longer present Electronically Signed On 08-04-2023 18:33:33 PERFUMER by Gómez Garcia M.D. [id number]
--- NOTE | 2023-08-04 12:18 | W.ED.WEAKNES ---
HPI - Weakness General: Chief complaint: Weakness Stated complaint: WEAKNESS Time Seen by Provider: 08/04/23 10:15 History of Present Illness: 88-year-old male presents emergency department stating that he feels like he is breathing fast. He states he has been feeling weak over the past several weeks. He states that he feels like his heart may be intermittently having flutters. He states that he has been to several emergency departments for evaluation for the same symptoms and they have found no significant findings. Patient was seen here on 08/02/2023 For concerns of constipation he was also seen here on July 29, 2023 with complaints of a headache and treated by Dr. Ledesma. Review of Systems General: Reports: 10 or more systems reviewed and unremarkable except in HPI and below Const: Reports: fatigue and malaise Resp: Reports: dyspnea PFSH ED PFSH: Medical History Hypothyroidism Chronic kidney disease (CKD) Abnormal nuclear stress test Hypertension Coronary artery disease Hyperlipidemia CVA (cerebral vascular accident) GERD (gastroesophageal reflux disease) Bilateral carotid artery stenosis Osteoarthritis Urolithiasis BPH (benign prostatic hyperplasia) Neurodegenerative gait disorder Sacroiliitis Chronic migraine without aura, intractable, with status migrainosus Surgical History History of heart artery stent x8 H/O lithotripsy Family History Father , AT AGE 72 CAD (coronary artery disease) Stroke Mother , AT AGE 78 CAD (coronary artery disease) Other Hyperlipidemia Hypertension Denies family history of Diabetes Clotting disorder Dementia Chronic kidney disease (CKD) Anesthesia complication Bleeding disorder Lung disease Cancer Social History Smoking and tobacco/nicotine status: never used tobacco/nicotine Alcohol intake: never Substance/Drug Use: never Additional social history: Girlfriend lives with him Adopted: No Caregiver/support person: No Lives independently: Yes Marital status: / Current occupational status: retired Physical Exam Narrative: EXAM NARRATIVE: Constitutional: the patient appears well nourished and with normal development. Vital signs reviewed as documented. He does appear to be intermittently anxious and starts breathing faster when nursing or medical provider walks into the room, otherwise he appears calm and in no acute respiratory distress. HENMT: Normocephalic, atraumatic. External ears normal appearance without drainage. Nose without drainage, normal appearance. Mucus membranes moist. Neck is supple, No jugular venous distension, trachea is midline, no appreciable carotid bruits. No lymphadenopathy. No meningeal signs. Flexion, extension and lateral rotation is without pain. Eyes: Pupils are equal, round, reactive to light and accommodation. No scleral icterus. Extra-ocular movement are intact. Thorax is symmetrical and with equal rise and fall with respirations. Resp: Lungs are clear to auscultation. No wheezes, rales, crackles or ronchi at present. Cardio: Sinus bradycardia. Positive S1, S2. No appreciable murmurs, rubs or gallops. GI: Abdominal exam reveals normal bowel sounds to all quadrants. No organomegaly. No obvious palpable masses noted. No hepatomegally appreciated. Soft, non-tender to palpation. Extremity: Extremities are non-edematous and both femoral and pedal pulses are 2+ and equal bilaterally. Moves all extremities well, sensation in all extremities. Neuro: Alert and oriented x4, person, place, time and situation. Cranial nerves II through XII are grossly intact, there is no focal neurological deficits that I can appreciate at present. Motor strength in the upper and lower extremities are equal and bilateral 5/5. Psych: Cooperative, calm, normal thought process, appropriate judgment. Skin: No lesions, rashes. No gross abnormalities noted. Back: Symmetrical, no obvious deformity, No CVA tenderness Course Vital Signs: Vital signs: Vital Signs Temperature 98.4 F 08/04/23 10:19 Pulse Rate 55 L 08/04/23 11:51 Respiratory Rate 18 08/04/23 10:19 Blood Pressure 125/62 08/04/23 12:21 Pulse Oximetry 96 08/04/23 12:21 Oxygen Delivery Me thod Room Air 08/04/23 10:19 MDM - Weakness Medical Decision Making Patient was seen yesterday here in the emergency department and presents again today with complaints of generalized weakness and feeling like he is having shortness of breath. He does appear to be very anxious when the nursing and medical staff are in the room. His oxygen saturation has remained at 96 to 99% on room air his respiratory pattern has been normal and steady and has been the rate of 16-24 he does not appear to be in any acute distress. His laboratory exam is essentially negative, his chest x-ray and EKGs were all negative. I suspect this is most likely to anxiety and he has recently been started on the antianxiety medications. I discussed the findings with the patient as well as at the patient's request with his family and daughter and I will have him follow-up with his primary care provider as needed. Medical Records I reviewed the patient's medical records. Lab Data I reviewed the patient's lab results. 08/04/23 10:17 08/04/23 10:17 Radiology Impressions Chest X-Ray 08/04/23 10:15 IMPRESSION: No acute findings. Laboratory Results WBC 6.75 10^3/uL (3.29-11.43) 08/04/23 10:17 RBC 4.44 10^6/uL (3.85-5.65) 08/04/23 10:17 Hgb 13.60 g/dL (11.27-16.99) 08/04/23 10:17 Hct 40.6 % (37-53) 08/04/23 10:17 MCV 91.4 fl (82-101) 08/04/23 10:17 MCH 30.6 pg (27-33) 08/04/23 10:17 MCHC 33.5 g/dL (30-55) 08/04/23 10:17 RDW 13.3 % (12.1-15.1) 08/04/23 10:17 Plt Count 260 10^3/cmm (157-399) 08/04/23 10:17 MPV 9.1 fL (7.4-10.4) 08/04/23 10:17 Neut % (Auto) 79.8 % 08/04/23 10:17 Lymph % (Auto) 11.4 % 08/04/23 10:17 [place] % (Auto) 6.8 % 08/04/23 10:17 Eos % (Auto) 1.3 % 08/04/23 10:17 Baso % (Auto) 0.4 % 08/04/23 10:17 Neut # (Auto) 5.38 10^3/uL (1.8-7.7) 08/04/23 10:17 Lymph # (Auto) 0.8 10^3/uL (0.8-4.8) 08/04/23 10:17 [place] # (Auto) 0.5 10^3/uL (0.2-0.9) 08/04/23 10:17 Eos # (Auto) 0.1 10^3/uL (0.0-0.8) 08/04/23 10:17 Baso # (Auto) 0.0 10^3/uL (0.0-0.1) 08/04/23 10:17 Nucleated RBC % (auto) 0 % 08/04/23 10:17 Nucleated RBCs # 0.0 /100WBC 08/04/23 10:17 PT 13.20 SECONDS (12.1-14.9) 08/04/23 10:17 INR 0.98 (0.8-1.2) 08/04/23 10:17 APTT 26.8 SECONDS (23.9-36.7) 08/04/23 10:17 Sodium 136 mmol/L (136-145) 08/04/23 10:17 Potassium 3.9 mmol/L (3.5-5.1) 08/04/23 10:17 Chloride 100 mmol/L (98-107) 08/04/23 10:17 Carbon Dioxide 25 mmol/L (22-29) 08/04/23 10:17 Anion Gap 14.9 (5-19) 08/04/23 10:17 BUN 22 mg/dL (8-23) 08/04/23 10:17 Creatinine 1.5 mg/dL (0.7-1.2) H 08/04/23 10:17 GFR Calculation Not Reportable 08/04/23 10:17 Glucose 128 mg/dL (65-115) H 08/04/23 10:17 Calculated Osmolality 287 mOsm/kg (285-295) 08/04/23 10:17 Calcium 9.3 mg/dL (8.5-10.5) 08/04/23 10:17 Total Bilirubin 0.5 mg/dL (0.15-1.2) 08/04/23 10:17 AST 23 U/L (0-40) 08/04/23 10:17 ALT 19 U/L (0-41) 08/04/23 10:17 Alkaline Phosphatase 122 U/L (40-130) 08/04/23 10:17 Troponin T Baseline 45 ng/L (0-15) H 08/04/23 10:17 Troponin T 120 Minute 42.00 ng/L (0-15) H 08/04/23 12:14 Delta Troponin T -3.00 ABS# (0-10) L 08/04/23 12:14 NT-Pro-B Natriuret Pep 1532 pg/mL (0-450) H 08/04/23 10:17 Total Protein 7.1 g/dL (6.6-8.7) 08/04/23 10:17 Albumin 3.7 g/dL (3.5-5.2) 08/04/23 10:17 Globulin 3.4 g/dL (1.3-4.6) 08/04/23 10:17 Urine Color Yellow (Yellow) 08/04/23 12:00 Urine Appearance Clear (CLEAR) 08/04/23 12:00 Urine pH 6 (5-7) 08/04/23 12:00 Ur Specific [place] 1.020 (1.005-1.030) 08/04/23 12:00 Urine Protein Neg (Negative) 08/04/23 12:00 Urine Glucose (UA) Norm (Normal) 08/04/23 12:00 Urine Ketones Negative (Negative) 08/04/23 12:00 Urine Blood Neg (Negative) 08/04/23 12:00 Urine Nitrate Negative (Negative) 08/04/23 12:00 Urine Bilirubin Neg (Negative) 08/04/23 12:00 Urine Urobilinogen Norm mg/dL (Negative) 08/04/23 12:00 Ur Leukocyte Esterase Negative (Negative) 08/04/23 12:00 All radiology interpretation(s) finalized by discharge EKG Data EKG 1: Interpretation: Twelve-lead EKG obtained at 1013 and reviewed at 1015 demonstrates sinus bradycardia with a ventricular rate of 55 bpm, SC interval 153, QRS duration 93, QT 447, QTc [address] elevation or depression to demonstrate acute ischemia or infarction. EKG 2: Interpretation: Twelve-lead EKG obtained at 1127 and reviewed at 1130 demonstrates sinus bradycardia ventricular rate 48 SC interval 155 QRS duration 93 QT [address] elevation or depression Discharge Plan Discharge Patient Disposition: Home Clinical Impression: Anxiety Condition: Stable Prescriptions: No Action hydrocodone-acetaminophen 5-325 mg tablet 1 tab PO Q4H PRN (Reason: Lumbar and Thoracic fracture pain) 5 Days Qty: 30 0RF clopidogrel 75 mg tablet 75 mg PO QAM levothyroxine 50 mcg tablet 50 mcg PO QAM tamsulosin 0.4 mg capsule 0.4 mg PO DAILY cetirizine 10 mg Tablet 10 mg PO DAILY PRN (Reason: Allergy Symptoms) tramadol 50 mg tablet 50 mg PO Q8H PRN (Reason: pain) Qty: 30 0RF Flonase 50 mcg/actuation [place],Suspension 2 spray INTRANASAL DAILY PRN (Reason: Allergy Symptoms) sertraline 50 mg tablet 50 mg PO QAM amoxicillin-pot clavulanate 875-125 mg tablet 1 tab PO BID Rx Instructions: for 7 days (08/04/23) not picked up from pharmacy per family Colace 100 mg capsule 100 mg PO BID PRN (Reason: Constipation) acetaminophen 500 mg Tablet 1,000 mg PO Q4H PRN (Reason: Pain) nitroglycerin [Nitrostat] 0.4 mg Tablet, Sublingual 0.4 mg SUBLINGUAL Q5M PRN (Reason: Chest Pain) Rx Instructions: do not exceed 3 doses per episode losartan 50 mg Tablet 100 mg PO DAILY Qty: 60 0RF atorvastatin 40 mg Tablet 80 mg PO BEDTIME Qty: 30 0RF isosorbide mononitrate 30 mg Tablet Extended Release 24 Hr 30 mg PO DAILY Qty: 30 0RF hydralazine 25 mg Tablet 75 mg PO TID Qty: 270 0RF aspirin 81 mg Tablet,Delayed Release (Dr/Ec) 81 mg PO DAILY Qty: 30 0RF Discharge Orders: Discharge ED (Routine); Ordered 08/04/23 Ordered By: Puneet Ly Referrals: Tam Farah DO [Primary Care Provider] - Discharge Diet: Advance as tolerated Discharge Activity: Resume usual activity Patient Instructions: Opioid Safety, Pain Management Activity Restrictions/Additional Instructions: Activity Restrictions/Additional Instructions: Thank you for choosing [facility] for your healthcare needs today. Please realize that you were seen in the Emergency Department and that we are providing you with an emergency medical screening exam and this may not be a complete and all inclusive of all the testing and or medical work-up that you may need to determine your ailment or severity of your illness. It is very important that you follow-up as instructed with your Primary care provider or Specialist for additional evaluation and to discuss your medical treatment plan. You may return to the Emergency Department should you have concerns or if your condition changes or worsens in any way. Coding Level of Care Code ED [employer] Umpire for Rah Carter
[2023-08-04 12:21] VITALS: BP 125/62; O2SAT 96
[2023-08-04 12:36] LABS: Add Urine Microscopic? NO; Charge for UA Resulting for Rev
[2023-08-04 13:02] LABS: Bilirubin Urine Neg (Negative); Blood Urine Neg (Negative); Glucose Urine UA Norm (Normal); Ketones Urine Negative (Negative); Leukocyte Esterase Urine Negative (Negative); Nitrate Urine Negative (Negative); Protein Urine Neg (Negative); Urine Appearance Clear (CLEAR); Urine Color Yellow (Yellow); Urobilinogen Urine Norm (Negative); pH Urine 6 (5-7)
== END 2023-08-04 14:18 | disposition home or self-care (01) ==
PROVIDERS: Emergency Provider Internal Medicine; PCP Internal Medicine
DX: F41.9 Anxiety disorder, unspecified (principal); Z79.02 Long term (current) use of antithrombotics/antiplatelets; Z79.82 Long term (current) use of aspirin; I12.9 Hypertensive chronic kidney disease with stage 1 through stage 4 chronic kidney disease, or unspecified chronic kidney disease; N18.9 Chronic kidney disease, unspecified; I25.10 Atherosclerotic heart disease of native coronary artery without angina pectoris; E78.5 Hyperlipidemia, unspecified; Z86.73 Personal history of transient ischemic attack (TIA), and cerebral infarction without residual deficits
CPT/HCPCS: 36415; 71045; 80053; 81003; 83880; 84484; 85025; 85610; 85730; 93005; 96374; 99285; J1940

== ENCOUNTER 2023-08-28 14:24 | Emergency (ER) | payer MEDICARE, OTHER, MEDICAID, SELFPAY ==
[2023-08-28 14:25] VITALS: BP 149/75; PULSE 73; RESP 18; TEMP 35.7; O2SAT 92
--- NOTE | 2023-08-28 14:34 | XR_ITS ---
WS: [id number] Examination: XR chest 1V portable [id number] Reason for Exam: weakness Date: 08/28/2023 Comparison: August 04, 2023 Findings: Heart is mildly prominent in size. The mediastinum is not widened There is no pulmonary edema or pleural effusion. There is no dense consolidation. Granulomatous changes are present. Impression: Large prominent size. I see no failure or dense consolidation.
--- NOTE | 2023-08-28 14:34 | ECG_ITS ---
[facility] Test Date: 2023-08-28 Pat Name: Des Fuller Department: Room: Gender: Male Performance Improvement Manager: : [id number] Requested By: Corin Ledesma Order Number: [id number] Mar MD: Gómez Garcia M.D. Measurements Intervals [place] Rate: 68 P: 69 NM: 161 QRS: 68 QRSD: 93 T: -12 QT: 406 QTc: 434 Interpretive Statements SINUS RHYTHM NONSPECIFIC ST & T-WAVE ABNORMALITY Compared to ECG 08/04/2023 12:19:43 Sinus bradycardia no longer present T-wave abnormality still present Electronically Signed On 08-28-2023 18:58:14 CIRCULAR KNIFE MACHINE CUTTER by Gómez Garcia M.D. [id number]
--- NOTE | 2023-08-28 14:38 | CTR_ITS ---
PROCEDURE INFORMATION: Exam: CT Head Without Contrast Exam date and time: 08/28/2023 3:18 PM Age: 88 years old Clinical indication: Altered mental status/memory loss; Additional info: AMS TECHNIQUE: Imaging protocol: Computed tomography of the head without contrast. Radiation optimization: All CT scans at this facility use at least one of these dose optimization techniques: automated exposure control; mA and/or kV adjustment per patient size (includes targeted exams where dose is matched to clinical indication); or iterative reconstruction. COMPARISON: CT head wo con* [id number] 07/29/2023 11:07 AM RADIATION DOSE METRICS: Total DLP (mGy-cm): 989.49 FINDINGS: Brain: Moderate cerebral atrophy. Generalized moderate low-attenuation in the white matter most likely representing small vessel ischemic change. No evidence of mass effect, intracranial hemorrhage or extra-axial collection. No acute infarct. Cerebral ventricles: Unremarkable for age. Paranasal sinuses: No significant pathology. Mastoid air cells: No significant pathology. Bones/joints: No significant pathology. Soft tissues: No significant pathology. CT/CT head wo con* [id number] IMPRESSION: No acute pathology or significant interval change.
--- NOTE | 2023-08-28 14:40 | ED_ITS ---
HPI - Nausea/Vomiting/Diarrhea 2 General: Chief complaint: Nausea/Vomiting/Diarrhea Stated complaint: n/v Time Seen by Provider: 08/28/23 14:33 Source: patient and EMS Mode of arrival: EMS Limitations: no limitations History of Present Illness: 88-year-old male EMS got called out to t [facility] for altered mental status EMS states when they arise he is awake and alert with them and is awake and alert and answering all my questions appropriately states he does had some nausea and vomiting denies any fever denies any cough denies any worsening proving factors. Associated nausea: Yes Associated symtoms: Reports nausea; Denies chest pain, dysuria or headache(s) Review of Systems 2 Const: Denies: fever(s), chills, body aches or change in appetite ENMT: Denies: throat pain or dental pain Card: Denies: chest pain Resp: Denies: dyspnea GI: Reports: nausea and vomiting; Denies: abdominal pain or diarrhea : Denies: dysuria Musc: Denies: neck pain or back pain Skin/Breast: Denies: rash Neuro: Reports: confusion; Denies: headache(s) PFSH ED 2 PFSH: Medical History Hypothyroidism Chronic kidney disease (CKD) Abnormal nuclear stress test Hypertension Coronary artery disease Hyperlipidemia CVA (cerebral vascular accident) GERD (gastroesophageal reflux disease) Bilateral carotid artery stenosis Osteoarthritis Urolithiasis BPH (benign prostatic hyperplasia) Neurodegenerative gait disorder Sacroiliitis Chronic migraine without aura, intractable, with status migrainosus Surgical History History of heart artery stent x8 H/O lithotripsy Family History Father , AT AGE 72 CAD (coronary artery disease) Stroke Mother , AT AGE 78 CAD (coronary artery disease) Other Hyperlipidemia Hypertension Denies family history of Diabetes Clotting disorder Dementia Chronic kidney disease (CKD) Anesthesia complication Bleeding disorder Lung disease Cancer Social History Smoking and tobacco/nicotine status: never used tobacco/nicotine Alcohol intake: never Substance/Drug Use: never Additional social history: Girlfriend lives with him Adopted: No Caregiver/support person: No Lives independently: Yes Marital status: / Current occupational status: retired Physical Exam 2 Const: COMMON NORMALS: no acute distress, patient oriented x3 and healthy appearing HENMT: COMMON NORMALS: normocephalic and atraumatic HEAD & SCALP: n ormocephalic and atraumatic Eye: COMMON NORMALS: Equal, round and reactive pupils present and conjunctivae normal CONJUNCTIVA: Yes conjunctivae normal PUPIL: Yes Equal, round and reactive pupils present Neck/C-Spine: COMMON NORMALS: full ROM and supple Chest: COMMONS NORMALS: normal inspection of the chest and normal palpation of entire chest wall Resp: COMMON NORMALS: normal respiratory effort, No retractions, No use of accessory muscles and clear to auscultation bilaterally AUSCULTATION: clear to auscultation bilaterally Cardio: COMMON NORMALS: regular rate, regular rhythm and No murmurs present (Cardio) RATE: regular rate RHYTHM: regular rhythm GI: COMMON NORMALS: Normal to inspection, nondistended, normoactive bowel sounds present, Soft to palpation, non-tender and no masses PALPATION: Yes Soft to palpation Extremity: COMMON NORMALS: normal to inspection and full ROM Neuro: COMMON NORMALS: patient oriented x3, moves all extremities and no focal motor deficits SPEECH: speech normal MOTOR EXAM: 5/5 motor strength present throughout Psych: COMMON NORMALS: mental status grossly normal, Normal thought process present and cooperative THOUGHT PROCESS: Normal thought process present Skin: COMMON NORMALS: no rashes or lesions noted and no wounds GENERAL SKIN EXAM: no rashes or lesions noted Course 2 Vital Signs: Vital signs: Vital Signs Temperature 96.2 F L 08/28/23 14:25 Pulse Rate 66 08/28/23 15:32 Respiratory Rate 15 08/28/23 15:32 Blood Pressure 149/75 08/28/23 15:32 Pulse Oximetry 94 08/28/23 15:32 Oxygen Delivery Me thod Room Air 08/28/23 15:32 MDM - Nausea/Vomiting/Diarrhea Medical Decision Making Patient presents with nausea vomiting he had no confusion here has been well- appearing here imaging and blood work here are normal he feels improved he stable for discharge follow-up PCP return if worsening. Medical Records I reviewed the patient's medical records. Lab Data I reviewed the patient's lab results. 08/28/23 15:03 08/28/23 15:[address] 08/28/23 14:38 IMPRESSION: No acute pathology or significant interval change. Laboratory Results WBC 7.76 10^3/uL (3.29-11.43) 08/28/23 15:03 RBC 4.79 10^6/uL (3.85-5.65) 08/28/23 15:03 Hgb 14.70 g/dL (11.27-16.99) 08/28/23 15:03 Hct 45.1 % (37-53) 08/28/23 15:03 MCV 94.2 fl (82-101) 08/28/23 15:03 MCH 30.7 pg (27-33) 08/28/23 15:03 MCHC 32.6 g/dL (30-55) 08/28/23 15:03 RDW 13.7 % (12.1-15.1) 08/28/23 15:03 Plt Count 305 10^3/cmm (157-399) 08/28/23 15:03 MPV 8.6 fL (7.4-10.4) 08/28/23 15:03 Neut % (Auto) 75.7 % 08/28/23 15:03 Lymph % (Auto) 13.4 % 08/28/23 15:03 [place] % (Auto) 8.1 % 08/28/23 15:03 Eos % (Auto) 1.4 % 08/28/23 15:03 Baso % (Auto) 1.0 % 08/28/23 15:03 Neut # (Auto) 5.87 10^3/uL (1.8-7.7) 08/28/23 15:03 Lymph # (Auto) 1.0 10^3/uL (0.8-4.8) 08/28/23 15:03 [place] # (Auto) 0.6 10^3/uL (0.2-0.9) 08/28/23 15:03 Eos # (Auto) 0.1 10^3/uL (0.0-0.8) 08/28/23 15:03 Baso # (Auto) 0.1 10^3/uL (0.0-0.1) 08/28/23 15:03 Nucleated RBC % (auto) 0 % 08/28/23 15:03 Nucleated RBCs # 0.0 /100WBC 08/28/23 15:03 PT 13.30 SECONDS (12.1-14.9) 08/28/23 15:03 INR 0.98 (0.8-1.2) 08/28/23 15:03 Sodium 136 mmol/L (136-145) 08/28/23 15:03 Potassium 3.8 mmol/L (3.5-5.1) 08/28/23 15:03 Chloride 100 mmol/L (98-107) 08/28/23 15:03 Carbon Dioxide 22 mmol/L (22-29) 08/28/23 15:03 Anion Gap 17.8 (5-19) 08/28/23 15:03 BUN 37 mg/dL (8-23) H 08/28/23 15:03 Creatinine 1.6 mg/dL (0.7-1.2) H 08/28/23 15:03 GFR Calculation Not Reportable 08/28/23 15:03 Glucose 131 mg/dL (65-115) H 08/28/23 15:03 Calculated Osmolality 292 mOsm/kg (285-295) 08/28/23 15:03 Calcium 9.2 mg/dL (8.5-10.5) 08/28/23 15:03 Total Bilirubin 0.3 mg/dL (0.15-1.2) 08/28/23 15:03 AST 23 U/L (0-40) 08/28/23 15:03 ALT 23 U/L (0-41) 08/28/23 15:03 Alkaline Phosphatase 133 U/L (40-130) H 08/28/23 15:03 Total Protein 8.0 g/dL (6.6-8.7) 08/28/23 15:03 Albumin 3.7 g/dL (3.5-5.2) 08/28/23 15:03 Globulin 4.3 g/dL (1.3-4.6) 08/28/23 15:03 Lipase 61 U/L (13-60) H 08/28/23 15:03 All radiology interpretation(s) finalized by discharge EKG Data EKG 1: I personally reviewed and interpreted this EKG as follows: EKG interpretation date: 08/28/23 EKG interpretation time: 15:10 Interpretation: Normal sinus rhythm heart rate [address] or T wave abnormalities QRS 93 QTc 424 Discharge Plan Discharge Patient Disposition: Home Clinical Impression: Vomiting Qualifiers: Vomiting type: unspecified Nausea presence: with nausea Qualified Code(s): R 11.2 - Nausea with vomiting, unspecified Condition: Stable Prescriptions: New ondansetron 4 mg tablet,disintegrating 4 mg PO Q6H PRN (Reason: nausea and vomiting) Qty: 14 0RF No Action hydrocodone-acetaminophen 5-325 mg tablet 1 tab PO Q4H PRN (Reason: Lumbar and Thoracic fracture pain) 5 Days Qty: 30 0RF clopidogrel 75 mg tablet 75 mg PO QAM levothyroxine 50 mcg tablet 50 mcg PO QAM tamsulosin 0.4 mg capsule 0.4 mg PO DAILY cetirizine 10 mg Tablet 10 mg PO DAILY PRN (Reason: Allergy Symptoms) tramadol 50 mg tablet 50 mg PO Q8H PRN (Reason: pain) Qty: 30 0RF Flonase 50 mcg/actuation [place],Suspension 2 spray INTRANASAL DAILY PRN (Reason: Allergy Symptoms) sertraline 50 mg tablet 50 mg PO QAM amoxicillin-pot clavulanate 875-125 mg tablet 1 tab PO BID Rx Instructions: for 7 days (08/04/23) not picked up from pharmacy per family Colace 100 mg capsule 100 mg PO BID PRN (Reason: Constipation) acetaminophen 500 mg Tablet 1,000 mg PO Q4H PRN (Reason: Pain) nitroglycerin [Nitrostat] 0.4 mg Tablet, Sublingual 0.4 mg SUBLINGUAL Q5M PRN (Reason: Chest Pain) Rx Instructions: do not exceed 3 doses per episode losartan 50 mg Tablet 100 mg PO DAILY Qty: 60 0RF atorvastatin 40 mg Tablet 80 mg PO BEDTIME Qty: 30 0RF isosorbide mononitrate 30 mg Tablet Extended Release 24 Hr 30 mg PO DAILY Qty: 30 0RF hydralazine 25 mg Tablet 75 mg PO TID Qty: 270 0RF aspirin 81 mg Tablet,Delayed Release (Dr/Ec) 81 mg PO DAILY Qty: 30 0RF Discharge Orders: Discharge ED (Routine); Ordered 08/28/23 Ordered By: Corin Ledesma Referrals: Tam Farah DO [Primary Care Provider] - 4-7 days Discharge Diet: Advance as tolerated Discharge Activity: Resume usual activity Patient Instructions: Acute Nausea and Vomiting (ED) Coding Level of Care Code ED Computer Systems Engineer for Rah Carter
[2023-08-28] MEDS: sodium chloride 0.9% 1,000 ML 999 ML IV (14:58)
[2023-08-28 15:04] VITALS: BP 149/75; PULSE 69; RESP 14; O2SAT 94
[2023-08-28 15:17] LABS: Basophils # 0.1 10^3/uL (0.0-0.1); Eosinophils # 0.1 10^3/uL (0.0-0.8); Eosinophils % 1.4 %; Hematocrit 45.1 % (37-53); Lymphocytes % 13.4 %; Mean Corpuscular HGB Conc 32.6 g/dL (30-55); Mean Corpuscular Hemoglobin 30.7 pg (27-33); Mean Corpuscular Volume 94.2 fl (82-101); Mean Platelet Volume 8.6 fL (7.4-10.4); Monocytes # 0.6 10^3/uL (0.2-0.9); Monocytes % 8.1 %; Neutrophils # 5.87 10^3/uL (1.8-7.7); Neutrophils % 75.7 %; Nucleated Red Blood Cells % 0 %; Platelet Count 305 10^3/cmm (157-399); Red Blood Count 4.79 10^6/uL (3.85-5.65); Red Cell Distribution Width 13.7 % (12.1-15.1); White Blood Count 7.76 10^3/uL (3.29-11.43)
[2023-08-28 15:31] LABS: INR 0.98 (0.8-1.2)
[2023-08-28 15:32] VITALS: BP 149/75; PULSE 66; RESP 15; O2SAT 94
[2023-08-28 15:36] LABS: Alanine Aminotransferase 23 U/L (0-41); Albumin Level 3.7 g/dL (3.5-5.2); Alkaline Phosphatase 133 U/L (40-130); Anion Gap 17.8 (5-19); Aspartate Amino Transferase 23 U/L (0-40); Blood Urea Nitrogen 37 mg/dL (8-23); Calcium 9.2 mg/dL (8.5-10.5); Carbon Dioxide 22 mmol/L (22-29); Chloride 100 mmol/L (98-107); Creatinine Clr Calc Pharmacy 33.4922; Globulin 4.3 g/dL (1.3-4.6); Glucose 131 mg/dL (65-115); Lipase 61 U/L (13-60); Osmolality Calculated 292 mOsm/kg (285-295); Potassium 3.8 mmol/L (3.5-5.1); Sodium 136 mmol/L (136-145); Total Bilirubin 0.3 mg/dL (0.15-1.2)
[2023-08-28 16:27] VITALS: BP 149/75; PULSE 66; RESP 15; TEMP 35.7; O2SAT 94
== END 2023-08-28 16:28 | disposition home or self-care (01) ==
PROVIDERS: Emergency Provider Emergency Medicine; PCP Internal Medicine
DX: R11.2 Nausea with vomiting, unspecified (principal); Z79.02 Long term (current) use of antithrombotics/antiplatelets; Z79.82 Long term (current) use of aspirin; I12.9 Hypertensive chronic kidney disease with stage 1 through stage 4 chronic kidney disease, or unspecified chronic kidney disease; N18.9 Chronic kidney disease, unspecified; I25.10 Atherosclerotic heart disease of native coronary artery without angina pectoris; E78.5 Hyperlipidemia, unspecified; Z86.73 Personal history of transient ischemic attack (TIA), and cerebral infarction without residual deficits
CPT/HCPCS: 70450; 71045; 80053; 83690; 85025; 85610; 93005; 96360; 96361; 99285; J7030

== ENCOUNTER 2023-09-10 14:40 | Emergency (ER) | payer MEDICARE, OTHER, MEDICAID, SELFPAY ==
[2023-09-10 14:41] VITALS: BP 135/114; PULSE 64; RESP 24; TEMP 36.4; O2SAT 97; BMI 19.9
--- NOTE | 2023-09-10 15:12 | ED_ITS ---
Documented by User: Everardo Dyson DO 09/15/23 10:25 HPI - Weakness 2 General: Chief complaint: Weakness Stated complaint: lower back pain with weakness Time Seen by Provider: 09/10/23 14:51 Source: patient Mode of arrival: EMS History of Present Illness: 88-year-old male presents emergency room was weak unable to get out of bed this morning at his home. He lives at home various to her conditions evidently there is no heat. His home health care nurse went to the home to evaluate him found him unable to ambulate or get out of the bed. He denies chest pain or shortness of breath denies any abdominal pain no recent cough cold fever sweats or chills. Normally uses a walker or cane to ambulate from room to room Patient presents to the ER with complaints of weakness, patient's home health nurse came to check on him and took about 10 minutes to get him from the room to the chair. Patient also been having increased low back pain that started today. Patient normally uses a walker or cane. Patient denies any chest pain or shortness of breath. MD Complaint: generalized weakness Associated symptoms: Denies chest pain, chills, confusion, melena, decreased appetite, diaphoresis, dysuria, easy bruising, fever(s), headache(s), myalgias, nausea, rash, short of breath, syncope or vomiting Review of Systems 2 Const: Denies: fever(s), chills or diaphoresis Card: Denies: chest pain or syncope Resp: Denies: dyspnea GI: Denies: abdominal pain, nausea, vomiting or melena : Denies: dysuria, urinary frequency or urinary urgency Musc: Denies: neck pain or back pain Skin/Breast: Denies: rash Neuro: Denies: headache(s) or confusion Ronaldo/Lymph: Denies: easy bruising PFSH ED 2 PFSH: Medical History Hypothyroidism Chronic kidney disease (CKD) Abnormal nuclear stress test Hypertension Coronary artery disease Hyperlipidemia CVA (cerebral vascular accident) GERD (gastroesophageal reflux disease) Bilateral carotid artery stenosis Osteoarthritis Urolithiasis BPH (benign prostatic hyperplasia) Neurodegenerative gait disorder Sacroiliitis Chronic migraine without aura, intractable, with status migrainosus Surgical History History of heart artery stent x8 H/O lithotripsy Family History Father , AT AGE 72 CAD (coronary artery disease) Stroke Mother , AT AGE 78 CAD (coronary artery disease) Other Hyperlipidemia Hypertension Denies family history of Diabetes Clotting disorder Dementia Chronic kidney disease (CKD) Anesthesia complication Bleeding disorder Lung disease Cancer Social History Smoking and tobacco/nicotine status: never used tobacco/nicotine Alcohol intake: never Substance/Drug Use: never Additional social history: Girlfriend lives with him Adopted: No Caregiver/support person: No Lives independently: Yes Marital status: / Current occupational status: retired Physical Exam 2 Const: COMMON NORMALS: no acute distress GENERAL APPEARANCE: cooperative and comfortable ORIENTATION/CONSCIOUSNESS: Yes awake, Yes oriented to person, Yes oriented to place and Yes oriented to time HENMT: COMMON NORMALS: normocephalic, atraumatic and hearing grossly normal bilaterally HEAD & SCALP: normocephalic and atraumatic Resp: COMMON NORMALS: normal respiratory effort, No retractions, No use of accessory muscles and clear to auscultation bilaterally AUSCULTATION: clear to auscultation bilaterally Cardio: COMMON NORMALS: regular rate, regular rhythm and No murmurs present (Cardio) RATE: regular rate RHYTHM: regular rhythm GI: COMMON NORMALS: Soft to palpation and No hepatosplenomegaly present A USCULTATION: Yes normoactive bowel sounds PALPATION: Yes Soft to palpation, No Tenderness to palpation present (GI), No Guarding due to palpation present (GI) and Yes No hepatosplenomegaly present Extremity: COMMON NORMALS: normal to inspection, capillary refill normal, no clubbing, cyanosis or edema, no calf tenderness and no pedal edema Neuro: SENSORIUM/ORIENTATION: Yes oriented to person, Yes oriented to place and Yes oriented to time Skin: COMMON NORMALS: no rashes or lesions noted GENERAL SKIN EXAM: no rashes or lesions noted Course 2 Vital Signs: Vital signs: Vital Signs Temperature 97.6 F 09/10/23 14:41 Pulse Rate 75 09/10/23 20:54 Respiratory Rate 24 H 09/10/23 14:41 Blood Pressure 183/89 09/10/23 20:54 Pulse Oximetry 93 09/10/23 20:54 MDM - Weakness Medical Decision Making Care signed out to Dr. Thrasher at change of shift. See final notes for diagnosis and disposition. 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 Dr. Cristina vascular at [facility] in [place] he has looked at the images and says this is a chronic condition with no change in acute treatment needed he will call the patient tomorrow and arrange follow-up in the next couple weeks but nothing else needs to be done at this moment. Patient will be discharged home Lab Data 09/10/23 15:05 09/10/23 15:05 Radiology Impressions Lumbar Spine CT 09/10/23 15:17 IMPRESSION: 1. Moderate nonacute compression fracture of L1 involving anterior and middle columns loss of vertebral body height is similar to what was seen on MRI from 07/17/2023. Unchanged mild retropulsion of bone from the posterosuperior portion of L1. 2. Diffuse degenerative disc disease and facet arthropathy. Canal stenosis at L4-L5 L3-L4. 3. Abdominal aortic aneurysm measuring least 3 point cm in maximum dimension, not fully evaluated. There is also possibly mural hematoma seen along the left margin of the abdominal aorta near the level of the left renal artery. Abdomen/Pelvis CTA 09/10/23 17:57 IMPRESSION: 1. 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 Vascular evaluation is recommended. The findings were verbally communicated by telephone with Dr. Zhou at 7:13 PM SULKY DRIVER on 09/10/2023. Laboratory Results WBC 8.58 10^3/uL (3.29-11.43) 09/10/23 15:05 RBC 4.62 10^6/uL (3.85-5.65) 09/10/23 15:05 Hgb 14.30 g/dL (11.27-16.99) 09/10/23 15:05 Hct 44.5 % (37-53) 09/10/23 15:05 MCV 96.3 fl (82-101) 09/10/23 15:05 MCH 31.0 pg (27-33) 09/10/23 15:05 MCHC 32.1 g/dL (30-55) 09/10/23 15:05 RDW 14.2 % (12.1-15.1) 09/10/23 15:05 Plt Count 203 10^3/cmm (157-399) 09/10/23 15:05 MPV 9.5 fL (7.4-10.4) 09/10/23 15:05 Neut % (Auto) 77.9 % 09/10/23 15:05 Lymph % (Auto) 13.1 % 09/10/23 15:05 [place] % (Auto) 5.6 % 09/10/23 15:05 Eos % (Auto) 2.3 % 09/10/23 15:05 Baso % (Auto) 0.6 % 09/10/23 15:05 Neut # (Auto) 6.69 10^3/uL (1.8-7.7) 09/10/23 15:05 Lymph # (Auto) 1.1 10^3/uL (0.8-4.8) 09/10/23 15:05 [place] # (Auto) 0.5 10^3/uL (0.2-0.9) 09/10/23 15:05 Eos # (Auto) 0.2 10^3/uL (0.0-0.8) 09/10/23 15:05 Baso # (Auto) 0.1 10^3/uL (0.0-0.1) 09/10/23 15:05 Nucleated RBC % (auto) 0 % 09/10/23 15:05 Nucleated RBCs # 0.0 /100WBC 09/10/23 15:05 Sodium 137 mmol/L (136-145) 09/10/23 15:05 Potassium 4.0 mmol/L (3.5-5.1) 09/10/23 15:05 Chloride 101 mmol/L (98-107) 09/10/23 15:05 Carbon Dioxide 23 mmol/L (22-29) 09/10/23 15:05 Anion Gap 17.0 (5-19) 09/10/23 15:05 BUN 23 mg/dL (8-23) 09/10/23 15:05 Creatinine 1.3 mg/dL (0.7-1.2) H 09/10/23 15:05 GFR Calculation Not Reportable 09/10/23 15:05 Glucose 128 mg/dL (65-115) H 09/10/23 15:05 Calculated Osmolality 289 mOsm/kg (285-295) 09/10/23 15:05 Calcium 8.7 mg/dL (8.5-10.5) 09/10/23 15:05 Total Bilirubin 0.4 mg/dL (0.15-1.2) 09/10/23 15:05 AST 20 U/L (0-40) 09/10/23 15:05 ALT 17 U/L (0-41) 09/10/23 15:05 Alkaline Phosphatase 112 U/L (40-130) 09/10/23 15:05 Total Protein 7.0 g/dL (6.6-8.7) 09/10/23 15:05 Albumin 3.4 g/dL (3.5-5.2) L 09/10/23 15:05 Globulin 3.6 g/dL (1.3-4.6) 09/10/23 15:05 Urine Color Yellow (Yellow) 09/10/23 17:31 Urine Appearance Clear (CLEAR) 09/10/23 17:31 Urine pH 5 (5-7) 09/10/23 17:31 Ur Specific [place] 1.025 (1.005-1.030) 09/10/23 17:31 Urine Protein Neg (Negative) 09/10/23 17:31 Urine Glucose (UA) Norm (Normal) 09/10/23 17:31 Urine Ketones Negative (Negative) 09/10/23 17:31 Urine Blood Neg (Negative) 09/10/23 17:31 Urine Nitrate Negative (Negative) 09/10/23 17:31 Urine Bilirubin Neg (Negative) 09/10/23 17:31 Urine Urobilinogen Norm mg/dL (Negative) 09/10/23 17:31 Ur Leukocyte Esterase Negative (Negative) 09/10/23 17:31 Discharge Plan Discharge Patient Disposition: Home Clinical Impression: Generalized weakness, Aortic mural thrombus, Renal artery occlusion Abdominal aortic aneurysm Qualifiers: Abdominal aorta location: juxtarenal aorta Presence of rupture: without rupture Qualified Code(s): I71.42 - Juxtarenal abdominal aortic aneurysm, without rupture Condition: Stable Prescriptions: No Action hydrocodone-acetaminophen 5-325 mg tablet 1 tab PO Q4H PRN (Reason: Lumbar and Thoracic fracture pain) 5 Days Qty: 30 0RF clopidogrel 75 mg tablet 75 mg PO QAM levothyroxine 50 mcg tablet 50 mcg PO QAM tamsulosin 0.4 mg capsule 0.4 mg PO DAILY cetirizine 10 mg Tablet 10 mg PO DAILY PRN (Reason: Allergy Symptoms) tramadol 50 mg tablet 50 mg PO Q8H PRN (Reason: pain) Qty: 30 0RF fluticasone propionate [Flonase] 50 mcg/actuation [place],Suspension 2 spray INTRANASAL DAILY PRN (Reason: Allergy Symptoms) docusate sodium [Colace] 100 mg capsule 100 mg PO BID PRN (Reason: Constipation) sertraline 100 mg tablet 100 mg PO QAM losartan 100 mg tablet 100 mg PO DAILY aspirin 81 mg tablet,delayed release (DR/EC) 81 mg PO QAM acetaminophen 500 mg Tablet 1,000 mg PO Q4H PRN (Reason: Pain) nitroglycerin [Nitrostat] 0.4 mg Tablet, Sublingual 0.4 mg SUBLINGUAL Q5M PRN (Reason: Chest Pain) Rx Instructions: do not exceed 3 doses per episode isosorbide mononitrate 30 mg Tablet Extended Release 24 Hr 30 mg PO DAILY Qty: 30 0RF Discharge Orders: Discharge ED (Routine); Ordered 09/10/23 Ordered By: Walt Thrasher Referrals: Tam Farah DO [Primary Care Provider] - 1 week Patient Instructions: Abdominal Aortic Aneurysm, Weakness (Generalized) Activity Restrictions/Additional Instructions: Your scans show you have a aneurysm of your abdominal aorta with a thrombus or clot near your renal artery that almost occluding or blocking the blood flow to your right kidney. Dr. Cristina vascular surgeon at [facility] has looked at these images and said it is chronic. He would like to see you in his office in the next 2 weeks. He will be calling you probably tomorrow to arrange this appointment. Coding Level of Care Code ED Inclusion Special Educator for Chg Fwd Documented by User: Walt Thrasher DO 09/11/23 01:10 HPI - Weakness 2 General: Chief complaint: Weakness Stated complaint: lower back pain with weakness Time Seen by Provider: 09/10/23 14:51 History of Present Illness: Patient presents to the ER with complaints of weakness, patient's home health nurse came to check on him and took about 10 minutes to get him from the room to the chair. Patient also been having increased low back pain that started today. Patient normally uses a walker or cane. Patient denies any chest pain or shortness of breath. PFSH ED 2 PFSH: Medical History Hypothyroidism Chronic kidney disease (CKD) Abnormal nuclear stress test Hypertension Coronary artery disease Hyperlipidemia CVA (cerebral vascular accident) GERD (gastroesophageal reflux disease) Bilateral carotid artery stenosis Osteoarthritis Urolithiasis BPH (benign prostatic hyperplasia) Neurodegenerative gait disorder Sacroiliitis Chronic migraine without aura, intractable, with status migrainosus Surgical History History of heart artery stent x8 H/O lithotripsy Family History Father , AT AGE 72 CAD (coronary artery disease) Stroke Mother , AT AGE 78 CAD (coronary artery disease) Other Hyperlipidemia Hypertension Denies family history of Diabetes Clotting disorder Dementia Chronic kidney disease (CKD) Anesthesia complication Bleeding disorder Lung disease Cancer Social History Smoking and tobacco/nicotine status: never used tobacco/nicotine Alcohol intake: never Substance/Drug Use: never Additional social history: Girlfriend lives with him Adopted: No Caregiver/support person: No Lives independently: Yes Marital status: / Current occupational status: retired Course 2 Vital Signs: Vital signs: Vital Signs Temperature 97.6 F 09/10/23 14:41 Pulse Rate 75 09/10/23 20:54 Respiratory Rate 24 H 09/10/23 14:41 Blood Pressure 183/89 09/10/23 20:54 Pulse Oximetry 93 09/10/23 20:54 MDM - Weakness Medical Decision Making Care was taken over at shift change labs and images reviewed, call vascular surgery at [facility] for 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 Dr. Cristina vascular at [facility] in [place] he has looked at the images and says this is a chronic condition with no change in acute treatment needed he will call the patient tomorrow and arrange follow-up in the next couple weeks but nothing else needs to be done at this moment. Patient will be discharged home Medical Records I reviewed the patient's medical records. Lab Data I reviewed the patient's lab results. 09/10/23 15:05 09/10/23 15:05 Radiology Impressions Lumbar Spine CT 09/10/23 15:17 IMPRESSION: 1. Moderate nonacute compression fracture of L1 involving anterior and middle columns loss of vertebral body height is similar to what was seen on MRI from 07/17/2023. Unchanged mild retropulsion of bone from the posterosuperior portion of L1. 2. Diffuse degenerative disc disease and facet arthropathy. Canal stenosis at L4-L5 L3-L4. 3. Abdominal aortic aneurysm measuring least 3 point cm in maximum dimension, not fully evaluated. There is also possibly mural hematoma seen along the left margin of the abdominal aorta near the level of the left renal artery. Abdomen/Pelvis CTA 09/10/23 17:57 IMPRESSION: 1. 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 Vascular evaluation is recommended. The findings were verbally communicated by telephone with Dr. Zhou at 7:13 PM SULKY DRIVER on 09/10/2023. Laboratory Results WBC 8.58 10^3/uL (3.29-11.43) 09/10/23 15:05 RBC 4.62 10^6/uL (3.85-5.65) 09/10/23 15:05 Hgb 14.30 g/dL (11.27-16.99) 09/10/23 15:05 Hct 44.5 % (37-53) 09/10/23 15:05 MCV 96.3 fl (82-101) 09/10/23 15:05 MCH 31.0 pg (27-33) 09/10/23 15:05 MCHC 32.1 g/dL (30-55) 09/10/23 15:05 RDW 14.2 % (12.1-15.1) 09/10/23 15:05 Plt Count 203 10^3/cmm (157-399) 09/10/23 15:05 MPV 9.5 fL (7.4-10.4) 09/10/23 15:05 Neut % (Auto) 77.9 % 09/10/23 15:05 Lymph % (Auto) 13.1 % 09/10/23 15:05 [place] % (Auto) 5.6 % 09/10/23 15:05 Eos % (Auto) 2.3 % 09/10/23 15:05 Baso % (Auto) 0.6 % 09/10/23 15:05 Neut # (Auto) 6.69 10^3/uL (1.8-7.7) 09/10/23 15:05 Lymph # (Auto) 1.1 10^3/uL (0.8-4.8) 09/10/23 15:05 [place] # (Auto) 0.5 10^3/uL (0.2-0.9) 09/10/23 15:05 Eos # (Auto) 0.2 10^3/uL (0.0-0.8) 09/10/23 15:05 Baso # (Auto) 0.1 10^3/uL (0.0-0.1) 09/10/23 15:05 Nucleated RBC % (auto) 0 % 09/10/23 15:05 Nucleated RBCs # 0.0 /100WBC 09/10/23 15:05 Sodium 137 mmol/L (136-145) 09/10/23 15:05 Potassium 4.0 mmol/L (3.5-5.1) 09/10/23 15:05 Chloride 101 mmol/L (98-107) 09/10/23 15:05 Carbon Dioxide 23 mmol/L (22-29) 09/10/23 15:05 Anion Gap 17.0 (5-19) 09/10/23 15:05 BUN 23 mg/dL (8-23) 09/10/23 15:05 Creatinine 1.3 mg/dL (0.7-1.2) H 09/10/23 15:05 GFR Calculation Not Reportable 09/10/23 15:05 Glucose 128 mg/dL (65-115) H 09/10/23 15:05 Calculated Osmolality 289 mOsm/kg (285-295) 09/10/23 15:05 Calcium 8.7 mg/dL (8.5-10.5) 09/10/23 15:05 Total Bilirubin 0.4 mg/dL (0.15-1.2) 09/10/23 15:05 AST 20 U/L (0-40) 09/10/23 15:05 ALT 17 U/L (0-41) 09/10/23 15:05 Alkaline Phosphatase 112 U/L (40-130) 09/10/23 15:05 Total Protein 7.0 g/dL (6.6-8.7) 09/10/23 15:05 Albumin 3.4 g/dL (3.5-5.2) L 09/10/23 15:05 Globulin 3.6 g/dL (1.3-4.6) 09/10/23 15:05 Urine Color Yellow (Yellow) 09/10/23 17:31 Urine Appearance Clear (CLEAR) 09/10/23 17:31 Urine pH 5 (5-7) 09/10/23 17:31 Ur Specific [place] 1.025 (1.005-1.030) 09/10/23 17:31 Urine Protein Neg (Negative) 09/10/23 17:31 Urine Glucose (UA) Norm (Normal) 09/10/23 17:31 Urine Ketones Negative (Negative) 09/10/23 17:31 Urine Blood Neg (Negative) 09/10/23 17:31 Urine Nitrate Negative (Negative) 09/10/23 17:31 Urine Bilirubin Neg (Negative) 09/10/23 17:31 Urine Urobilinogen Norm mg/dL (Negative) 09/10/23 17:31 Ur Leukocyte Esterase Negative (Negative) 09/10/23 17:31 All radiology interpretation(s) finalized by discharge Discharge Plan Discharge Patient Disposition: Home Clinical Impression: Generalized weakness, Aortic mural thrombus, Renal artery occlusion Abdominal aortic aneurysm Qualifiers: Abdominal aorta location: juxtarenal aorta Presence of rupture: without rupture Qualified Code(s): I71.42 - Juxtarenal abdominal aortic aneurysm, without rupture Condition: Stable Prescriptions: No Action hydrocodone-acetaminophen 5-325 mg tablet 1 tab PO Q4H PRN (Reason: Lumbar and Thoracic fracture pain) 5 Days Qty: 30 0RF clopidogrel 75 mg tablet 75 mg PO QAM levothyroxine 50 mcg tablet 50 mcg PO QAM tamsulosin 0.4 mg capsule 0.4 mg PO DAILY cetirizine 10 mg Tablet 10 mg PO DAILY PRN (Reason: Allergy Symptoms) tramadol 50 mg tablet 50 mg PO Q8H PRN (Reason: pain) Qty: 30 0RF fluticasone propionate [Flonase] 50 mcg/actuation [place],Suspension 2 spray INTRANASAL DAILY PRN (Reason: Allergy Symptoms) docusate sodium [Colace] 100 mg capsule 100 mg PO BID PRN (Reason: Constipation) sertraline 100 mg tablet 100 mg PO QAM losartan 100 mg tablet 100 mg PO DAILY aspirin 81 mg tablet,delayed release (DR/EC) 81 mg PO QAM acetaminophen 500 mg Tablet 1,000 mg PO Q4H PRN (Reason: Pain) nitroglycerin [Nitrostat] 0.4 mg Tablet, Sublingual 0.4 mg SUBLINGUAL Q5M PRN (Reason: Chest Pain) Rx Instructions: do not exceed 3 doses per episode isosorbide mononitrate 30 mg Tablet Extended Release 24 Hr 30 mg PO DAILY Qty: 30 0RF Discharge Orders: Discharge ED (Routine); Ordered 09/10/23 Ordered By: Walt Thrasher Referrals: Tam Farah DO [Primary Care Provider] - 1 week Patient Instructions: Abdominal Aortic Aneurysm, Weakness (Generalized) Activity Restrictions/Additional Instructions: Your scans show you have a aneurysm of your abdominal aorta with a thrombus or clot near your renal artery that almost occluding or blocking the blood flow to your right kidney. Dr. Cristina vascular surgeon at [facility] has looked at these images and said it is chronic. He would like to see you in his office in the next 2 weeks. He will be calling you probably tomorrow to arrange this appointment. Coding Level of Care Code ED Inclusion Special Educator for Rah Carter
[2023-09-10 15:13] LABS: Basophils # 0.1 10^3/uL (0.0-0.1); Basophils % 0.6 %; Eosinophils # 0.2 10^3/uL (0.0-0.8); Eosinophils % 2.3 %; Hematocrit 44.5 % (37-53); Lymphocytes # 1.1 10^3/uL (0.8-4.8); Lymphocytes % 13.1 %; Mean Corpuscular HGB Conc 32.1 g/dL (30-55); Mean Corpuscular Volume 96.3 fl (82-101); Mean Platelet Volume 9.5 fL (7.4-10.4); Monocytes # 0.5 10^3/uL (0.2-0.9); Monocytes % 5.6 %; Neutrophils # 6.69 10^3/uL (1.8-7.7); Neutrophils % 77.9 %; Nucleated Red Blood Cells % 0 %; Platelet Count 203 10^3/cmm (157-399); Red Blood Count 4.62 10^6/uL (3.85-5.65); Red Cell Distribution Width 14.2 % (12.1-15.1); White Blood Count 8.58 10^3/uL (3.29-11.43)
--- NOTE | 2023-09-10 15:17 | CTR_ITS ---
PROCEDURE INFORMATION: Exam: CT Lumbar Spine Without Contrast Exam date and time: 09/10/2023 3:35 PM Age: 88 years old Clinical indication: Low back pain; Additional info: L1 compression FX with worsening pain TECHNIQUE: Imaging protocol: Computed tomography of the lumbar spine without contrast. Radiation optimization: All CT scans at this facility use at least one of these dose optimization techniques: automated exposure control; mA and/or kV adjustment per patient size (includes targeted exams where dose is matched to clinical indication); or iterative reconstruction. COMPARISON: MR lumbar spine wo con* [id number] 07/17/2023 10:41 AM RADIATION DOSE METRICS: Total DLP (mGy-cm): 545 FINDINGS: Bones/joints: Moderate nonacute compression fracture of L1 involving anterior and middle columns loss of vertebral body height is similar to what was seen on MRI from 07/17/2023. Unchanged mild retropulsion of bone from the posterosuperior portion of L1. Diffuse degenerative disc disease and facet arthropathy. Canal stenosis at L4-L5 L3-L4. Vasculature: Abdominal aortic aneurysm measuring least 3 point cm in maximum dimension, not fully evaluated. There is also possibly mural hematoma seen along the left margin of the abdominal aorta near the level of the left renal artery. Soft tissues: Unremarkable. CT/CT lumbar spine wo con* [id number] IMPRESSION: 1. Moderate nonacute compression fracture of L1 involving anterior and middle columns loss of vertebral body height is similar to what was seen on MRI from 07/17/2023. Unchanged mild retropulsion of bone from the posterosuperior portion of L1. 2. Diffuse degenerative disc disease and facet arthropathy. Canal stenosis at L4-L5 L3-L4. 3. Abdominal aortic aneurysm measuring least 3 point cm in maximum dimension, not fully evaluated. There is also possibly mural hematoma seen along the left margin of the abdominal aorta near the level of the left renal artery.
[2023-09-10 15:37] LABS: Alanine Aminotransferase 17 U/L (0-41); Albumin Level 3.4 g/dL (3.5-5.2); Alkaline Phosphatase 112 U/L (40-130); Aspartate Amino Transferase 20 U/L (0-40); Blood Urea Nitrogen 23 mg/dL (8-23); Calcium 8.7 mg/dL (8.5-10.5); Carbon Dioxide 23 mmol/L (22-29); Chloride 101 mmol/L (98-107); Creatinine Clr Calc Pharmacy 38.6042; Globulin 3.6 g/dL (1.3-4.6); Glucose 128 mg/dL (65-115); Osmolality Calculated 289 mOsm/kg (285-295); Sodium 137 mmol/L (136-145); Total Bilirubin 0.4 mg/dL (0.15-1.2)
--- NOTE | 2023-09-10 15:37 | PC.PHAR ---
VERIFIED WITH PHARMACY PT NO LONGER FILLING HYDRALAZINE 25 MG.
[2023-09-10 15:52] VITALS: BP 166/87; PULSE 59; O2SAT 95
[2023-09-10 17:47] LABS: Add Urine Microscopic? NO; Charge for UA Resulting for Rev
--- NOTE | 2023-09-10 17:57 | CTR_ITS ---
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 Exam focused on the arteries. 3D rendering (Not supervised by radiologist): MIP and/or 3D reconstructed images were created by the technologist. Radiation optimization: All CT scans at this facility use at least one of these dose optimization techniques: automated exposure control; mA and/or kV adjustment per patient size (includes targeted exams where dose is matched to clinical indication); or iterative reconstruction. Contrast material: OMNI 350; Contrast volume: 100 ml; Contrast route: INTRAVENOUS (IV); COMPARISON: CT abdomen pelvis wo con [id number] 08/02/2023 10:09 PM RADIATION DOSE METRICS: Total DLP (mGy-cm): 387 FINDINGS: Lungs: Subsegmental bibasilar atelectasis. Aorta: There is aneurysmal dilatation of the abdominal aorta with the suprarenal abdominal aorta measuring up to 3.6 cm in diameter in the infrarenal abdominal aorta measuring up to 4.0 cm in diameter. There is extensive chronic appearing mural thrombus and mixed atherosclerotic plaque. No evidence dissection. Celiac trunk and mesenteric arteries: Patent. 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 There appears to be collateralized flow to the right renal artery via lumbar branches The left renal artery is patent. There is moderate-severe narrowing of the left renal artery ostium. Right iliac arteries: The right common, external and internal iliac arteries are patent. Left iliac arteries: Of the left common, external and internal iliac arteries are patent. There is occlusion of a anterior branch of the left internal iliac artery (for example, images 160 6-168 of the axial series 4). Liver: No focal hepatic lesion within limitations of the phase of contrast. Gallbladder and bile ducts: Grossly unremarkable. Pancreas: Grossly unremarkable. Spleen: Multiple splenic calcifications compatible with sequela of a remote granulomatous process. Otherwise grossly unremarkable. Adrenal glands: Grossly unremarkable. Kidneys and ureters: There is a simple appearing right-sided renal cyst for which dedicated imaging follow-up is not required. There is global hypoperfusion of the right kidney. There is left renal parenchymal scarring. Otherwise no renal parenchymal abnormality on the left. No evidence of hydronephrosis or ureteral stone. Stomach and bowel: No bowel obstruction or perienteric inflammatory changes. Appendix: Normal appendix. Intraperitoneal space: No evidence of pneumoperitoneum or fluid collection. Lymph nodes: No adenopathy. Urinary bladder: Grossly unremarkable. Reproductive: Enlarged prostate measuring 4.8 cm. Consider correlation with serum laboratory findings and outpatient urologic evaluation. Bones/joints: Subacute L1 vertebral body compression fracture. Please see separate report of recent CT of the lumbar spine for pertinent discussion. Pelvic ring and both hips are intact. Soft tissues: No evidence of fluid collection or hematoma in the superficial soft tissues. CT/CT angio abdomen pelvis [id number] IMPRESSION: 1. 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 Vascular evaluation is recommended. The findings were verbally communicated by telephone with Dr. Zhou at 7:13 PM [employer] on 09/10/2023.
[2023-09-10 18:04] LABS: Bilirubin Urine Neg (Negative); Blood Urine Neg (Negative); Glucose Urine UA Norm (Normal); Ketones Urine Negative (Negative); Leukocyte Esterase Urine Negative (Negative); Nitrate Urine Negative (Negative); Protein Urine Neg (Negative); Specific Gravity, Urine 1.025 (1.005-1.030); Urine Appearance Clear (CLEAR); Urine Color Yellow (Yellow); Urobilinogen Urine Norm (Negative); pH Urine 5 (5-7)
[2023-09-10] MEDS: iohexol 350 mg/mL 500 mL Btl (per mL) IV (18:47)
[2023-09-10 18:51] VITALS: BP 183/78; PULSE 55; O2SAT 95
[2023-09-10 20:54] VITALS: BP 183/89; PULSE 75; O2SAT 93
== END 2023-09-10 21:20 | disposition home or self-care (01) ==
PROVIDERS: Emergency Provider Family Medicine; PCP Internal Medicine
DX: R53.1 Weakness (principal); I74.19 Embolism and thrombosis of other parts of aorta; N28.0 Ischemia and infarction of kidney; I71.42 Juxtarenal abdominal aortic aneurysm, without rupture; Z79.02 Long term (current) use of antithrombotics/antiplatelets; Z79.82 Long term (current) use of aspirin; I12.9 Hypertensive chronic kidney disease with stage 1 through stage 4 chronic kidney disease, or unspecified chronic kidney disease; N18.9 Chronic kidney disease, unspecified; I25.10 Atherosclerotic heart disease of native coronary artery without angina pectoris; E78.5 Hyperlipidemia, unspecified; Z86.73 Personal history of transient ischemic attack (TIA), and cerebral infarction without residual deficits
CPT/HCPCS: 36415; 72131; 74174; 80053; 81003; 85025; 99285; Q9967

== ENCOUNTER 2024-02-29 02:58 | Inpatient (IN) | payer MEDICARE, OTHER, MEDICAID, SELFPAY ==
[2024-02-29] VITALS (22 sets, daily range): BP systolic 117–171; BP diastolic 67–101; PULSE 53–89; RESP 17–25; TEMP 36.2–36.8; O2SAT 91–99; BMI 26.6; BMI 18.4
--- NOTE | 2024-02-29 03:03 | ECG_ITS ---
[facility] Test Date: 2024-02-29 Pat Name: Des Fuller Department: Room: Gender: Male Reimbursement Spec: : 1935 Requested By: Delroy Escobar Order Number: [id number] Mar MD: Tree Melton M.D. Measurements Intervals [place] Rate: 83 P: 74 MA: 161 QRS: 97 QRSD: 125 T: 84 QT: 418 QTc: 494 Interpretive Statements SINUS RHYTHM BORDERLINE RIGHT AXIS DEVIATION [QRS AXIS > 90] POSSIBLE RIGHT VENTRICULAR CONDUCTION DELAY [RSR (QR) IN V1/V2] NONSPECIFIC T-WAVE ABNORMALITY Compared to ECG 08/28/2023 15:10:14 No significant changes Electronically Signed On 02-29-2024 22:45:46 CDT by Tree Melton M.D. [email or web address]
--- NOTE | 2024-02-29 03:22 | XRR_ITS ---
PROCEDURE INFORMATION: Exam: XR Chest Exam date and time: 02/29/2024 4:05 AM Age: 89 years old Clinical indication: Shortness of breath; Prior surgery; Surgery date: 6+ months; Surgery type: Coronary stents; Patient HX: EMS arrival from [facility] for SOB. TECHNIQUE: Imaging protocol: Radiologic exam of the chest. Views: 1 view. COMPARISON: CR XR chest 1V portable [id number] 08/28/2023 3:11 PM FINDINGS: Lungs: There are bilateral infiltrates in a relatively symmetric distribution suspicious for pulmonary edema. Pleural spaces: There are small pleural effusions. Heart/Mediastinum: The heart is slightly enlarged. There is calcified plaque involving the aorta. Bones/joints: Unremarkable. XR/XR chest 1V portable [id number] IMPRESSION: 1. Mild cardiomegaly with bilateral infiltrates and small pleural effusions.
--- NOTE | 2024-02-29 03:27 | ED_ITS ---
HPI - SOB/Dyspnea 2 General: Chief Complaint: Shortness of Breath/Dyspnea Stated Complaint: sob Time Seen by Provider: 02/29/24 03:10 History of Present Illness: HPI Narrative: 89-year-old male senior care patient. He presents short of breath. He was found to have low saturations evidently around midnight, and was given a breathing treatment with some improvement. However, saturations sent lower again. He is usually more alert, and oriented. He is not answering questions appropriately at this point. Other history is not available. Related Data Home Medications Medication Instructions Recorded Confirmed clopidogrel 75 mg tablet 75 mg PO QAM 09/13/19 09/10/23 levothyroxine 50 mcg tablet 50 mcg PO QAM 09/13/19 09/10/23 acetaminophen 500 mg tablet 1,000 mg PO Q4H PRN Pain 12/23/21 09/10/23 nitroglycerin 0.4 mg sublingual 0.4 mg sublingual Q5M PRN Chest 12/23/21 09/10/23 tablet (Nitrostat) Pain cetirizine 10 mg tablet 10 mg PO DAILY PRN Allergy Symptoms 02/28/23 09/10/23 tamsulosin 0.4 mg capsule 0.4 mg PO DAILY 02/28/23 09/10/23 docusate sodium 100 mg capsule 100 mg PO BID PRN Constipation 08/04/23 09/10/23 (Colace) fluticasone propionate 50 2 spray intranasal DAILY PRN 08/04/23 09/10/23 mcg/actuation nasal Allergy Symptoms spray,suspension aspirin 81 mg tablet,delayed 81 mg PO QAM 09/10/23 09/10/23 release losartan 100 mg tablet 100 mg PO DAILY 09/10/23 09/10/23 sertraline 100 mg tablet 100 mg PO QAM 09/10/23 09/10/23 Previous Rx's Medication Instructions Recorded hydrocodone 5 mg-acetaminophen 325 1 tab PO Q4H PRN Lumbar and 07/08/23 mg tablet Thoracic fracture pain 5 days #30 tabs isosorbide mononitrate 30 mg 30 mg PO DAILY #30 tabs 07/24/23 tablet,extended release 24 hr tramadol 50 mg tablet 50 mg PO Q8H PRN pain #30 tabs 08/02/23 Allergies Allergy/AdvReac Type Severity Reaction Status Date / Time amlodipine Allergy pedal edema Verified 08/04/23 10:21 ciprofloxacin [From Cipro] Allergy Unknown Verified 02/29/24 03:06 hydralazine AdvReac ADR-Headach Verified 08/04/23 10:21 e PFSH ED 2 PFSH: Medical History Hypothyroidism Chronic kidney disease (CKD) Abnormal nuclear stress test Hypertension Coronary artery disease Hyperlipidemia CVA (cerebral vascular accident) GERD (gastroesophageal reflux disease) Bilateral carotid artery stenosis Osteoarthritis Urolithiasis BPH (benign prostatic hyperplasia) Neurodegenerative gait disorder Sacroiliitis Chronic migraine without aura, intractable, with status migrainosus Surgical History History of heart artery stent x8 H/O lithotripsy Family History Father , AT AGE 72 CAD (coronary artery disease) Stroke Mother , AT AGE 78 CAD (coronary artery disease) Other Hyperlipidemia Hypertension Denies family history of Diabetes Clotting disorder Dementia Chronic kidney disease (CKD) Anesthesia complication Bleeding disorder Lung disease Cancer Social History Smoking and tobacco/nicotine status: never used tobacco/nicotine Alcohol intake: never Substance/Drug Use: never Additional social history: Girlfriend lives with him Adopted: No Caregiver/support person: No Lives independently: Yes Marital status: / Current occupational status: retired Physical Exam 2 Const: EXAM LIMITATIONS: altered mental status GENERAL APPEARANCE: c ooperative, ill appearing and frail appearing ORIENTATION/CONSCIOUSNESS: Yes awake HENMT: COMMON NORMALS: normocephalic and atraumatic HEAD & SCALP: n ormocephalic and atraumatic FACE & SINUS: normal facial exam Eye: COMMON NORMALS: Equal, round and reactive pupils present and EOMs intact bilaterally PUPIL: Yes Equal, round and reactive pupils present Resp: EFFORT & INSPECTION: Yes symmetric chest movement, Yes tachypneic and Yes labored Cardio: COMMON NORMALS: regular rate and regular rhythm RATE: regular rate RHYTHM: regular rhythm GI: COMMON NORMALS: Soft to palpation PALPATION: Yes Soft to palpation Extremity: COMMON NORMALS: no pedal edema Course 2 Vital Signs: Vital signs: Vital Signs Temperature 97.5 F L 02/29/24 03:00 Pulse Rate 80 02/29/24 04:30 Respiratory Rate 18 02/29/24 04:30 Blood Pressure 166/88 02/29/24 04:30 Pulse Oximetry 95 02/29/24 04:30 Oxygen Delivery Me thod Nasal Cannula 02/29/24 04:30 Oxygen Flow Rate 2.5 02/29/24 04:30 MDM - SOB/Dyspnea Medical Decision Making Chest x-ray shows pulmonary edema. He is hypoxic, on 2 L now. Saturations are 92 to 94%. Creatinine is baseline at 1.6. Hemoglobin is 13.7. BNP is 9000. Baseline troponin is 65. No acute ST-T wave changes on EKG. Will require admission for hypoxic respiratory failure and pulmonary edema. Hospitalist agrees and will see the patient. Lab Data 02/29/24 03:10 02/29/24 03:10 Labs/Radiology: Radiology Impressions Chest X-Ray 02/29/24 03:22 IMPRESSION: 1. Mild cardiomegaly with bilateral infiltrates and small pleural effusions. Laboratory Results WBC 7.82 10^3/uL (3.29-11.43) 02/29/24 03:10 RBC 4.54 10^6/uL (3.85-5.65) 02/29/24 03:10 Hgb 13.70 g/dL (11.27-16.99) 02/29/24 03:10 Hct 43.1 % (37-53) 02/29/24 03:10 MCV 94.9 fl (82-101) 02/29/24 03:10 MCH 30.2 pg (27-33) 02/29/24 03:10 MCHC 31.8 g/dL (30-55) 02/29/24 03:10 RDW 15.6 % (12.1-15.1) H 02/29/24 03:10 Plt Count 192 10^3/cmm (157-399) 02/29/24 03:10 MPV 11.1 fL (7.4-10.4) H 02/29/24 03:10 Neut % (Auto) 59.5 % 02/29/24 03:10 Lymph % (Auto) 28.3 % 02/29/24 03:10 [place] % (Auto) 7.4 % 02/29/24 03:10 Eos % (Auto) 3.7 % 02/29/24 03:10 Baso % (Auto) 0.8 % 02/29/24 03:10 Neut # (Auto) 4.66 10^3/uL (1.8-7.7) 02/29/24 03:10 Lymph # (Auto) 2.2 10^3/uL (0.8-4.8) 02/29/24 03:10 [place] # (Auto) 0.6 10^3/uL (0.2-0.9) 02/29/24 03:10 Eos # (Auto) 0.3 10^3/uL (0.0-0.8) 02/29/24 03:10 Baso # (Auto) 0.1 10^3/uL (0.0-0.1) 02/29/24 03:10 Nucleated RBC % (auto) 0 % 02/29/24 03:10 Nucleated RBCs # 0.0 /100WBC 02/29/24 03:10 Specimen Type Arterial 02/29/24 03:20 Sample Site Radial, left 02/29/24 03:20 ABG pH 7.39 (7.35-7.45) 02/29/24 03:20 ABG pCO2 46.0 mmHg (35-45) H 02/29/24 03:20 ABG pO2 73.5 mmHg (80.0-100.0) L 02/29/24 03:20 ABG HCO3 27.7 mmol/L (22-26) H 02/29/24 03:20 ABG Base Excess 2.1 mmol/L (-2.0-2.0) H 02/29/24 03:20 Martin Test Pos 02/29/24 03:20 Hematocrit 43.5 % (42-52) 02/29/24 03:20 Hgb O2 Saturation 93.1 % (95-100) L 02/29/24 03:20 Carboxyhemoglobin 0.7 %THgb (0.4-20.1) 02/29/24 03:20 Methemoglobin 1.0 % (0.4-1.5) 02/29/24 03:20 Total Hemoglobin 14.2 g/dL (14-18) 02/29/24 03:20 O2 Delivery Device Nc 02/29/24 03:20 O2 Liters/Min 2.5 % 02/29/24 03:20 Prepress Stripper ID [place]on 02/29/24 03:20 Sodium 143 mmol/L (136-145) 02/29/24 03:10 Potassium 4.4 mmol/L (3.5-5.1) 02/29/24 03:10 Chloride 105 mmol/L (98-107) 02/29/24 03:10 Carbon Dioxide 27 mmol/L (22-29) 02/29/24 03:10 Anion Gap 15.4 (5-19) 02/29/24 03:10 BUN 23 mg/dL (8-23) 02/29/24 03:10 Creatinine 1.6 mg/dL (0.7-1.2) H 02/29/24 03:10 GFR Calculation Not Reportable 02/29/24 03:10 Glucose 141 mg/dL (65-115) H 02/29/24 03:10 Calculated Osmolality 302 mOsm/kg (285-295) H 02/29/24 03:10 Lactic Acid 1.2 mmol/L (0.5-2.2) 02/29/24 03:10 Calcium 8.9 mg/dL (8.5-10.5) 02/29/24 03:10 Total Bilirubin 0.4 mg/dL (0.15-1.2) 02/29/24 03:10 AST 24 U/L (0-40) 02/29/24 03:10 ALT 12 U/L (0-41) 02/29/24 03:10 Alkaline Phosphatase 100 U/L (40-130) 02/29/24 03:10 Troponin T Baseline 65 ng/L (0-15) H 02/29/24 03:10 NT-Pro-B Natriuret Pep 9021 pg/mL (0-450) H 02/29/24 03:10 Total Protein 6.8 g/dL (6.6-8.7) 02/29/24 03:10 Albumin 3.7 g/dL (3.5-5.2) 02/29/24 03:10 Globulin 3.1 g/dL (1.3-4.6) 02/29/24 03:10 SARS-CoV-2 Ag (Rapid) negative (Negative) 02/29/24 03:32 All radiology interpretation(s) finalized by discharge Discharge Plan Discharge Patient Disposition: Admitted As Inpatient Clinical Impression: Acute hypoxemic respiratory failure, Pulmonary edema Condition: Fair Prescriptions: No Action hydrocodone-acetaminophen 5-325 mg tablet 1 tab PO Q4H PRN (Reason: Lumbar and Thoracic fracture pain) 5 Days Qty: 30 0RF clopidogrel 75 mg tablet 75 mg PO QAM levothyroxine 50 mcg tablet 50 mcg PO QAM tamsulosin 0.4 mg capsule 0.4 mg PO DAILY cetirizine 10 mg Tablet 10 mg PO DAILY PRN (Reason: Allergy Symptoms) tramadol 50 mg tablet 50 mg PO Q8H PRN (Reason: pain) Qty: 30 0RF fluticasone propionate [Flonase] 50 mcg/actuation Outlook,Suspension 2 spray INTRANASAL DAILY PRN (Reason: Allergy Symptoms) docusate sodium [Colace] 100 mg capsule 100 mg PO BID PRN (Reason: Constipation) sertraline 100 mg tablet 100 mg PO QAM losartan 100 mg tablet 100 mg PO DAILY aspirin 81 mg tablet,delayed release (DR/EC) 81 mg PO QAM acetaminophen 500 mg Tablet 1,000 mg PO Q4H PRN (Reason: Pain) nitroglycerin [Nitrostat] 0.4 mg Tablet, Sublingual 0.4 mg SUBLINGUAL Q5M PRN (Reason: Chest Pain) Rx Instructions: do not exceed 3 doses per episode isosorbide mononitrate 30 mg Tablet Extended Release 24 Hr 30 mg PO DAILY Qty: 30 0RF Referrals: Tam Farah DO [Primary Care Provider] - Coding Level of Care Code ED Cash Reconciliation Specialist for Rah Carter
[2024-02-29] MEDS: ipratropium-albuterol 3 mL Neb INHALATION ×4 (03:32→20:15)
[2024-02-29 03:33] LABS: Basophils # 0.1 10^3/uL (0.0-0.1); Basophils % 0.8 %; Eosinophils # 0.3 10^3/uL (0.0-0.8); Eosinophils % 3.7 %; Hematocrit 43.1 % (37-53); Lymphocytes # 2.2 10^3/uL (0.8-4.8); Lymphocytes % 28.3 %; Mean Corpuscular HGB Conc 31.8 g/dL (30-55); Mean Corpuscular Hemoglobin 30.2 pg (27-33); Mean Corpuscular Volume 94.9 fl (82-101); Mean Platelet Volume 11.1 fL (7.4-10.4); Monocytes # 0.6 10^3/uL (0.2-0.9); Monocytes % 7.4 %; Neutrophils # 4.66 10^3/uL (1.8-7.7); Neutrophils % 59.5 %; Nucleated Red Blood Cells % 0 %; Platelet Count 192 10^3/cmm (157-399); Red Blood Count 4.54 10^6/uL (3.85-5.65); Red Cell Distribution Width 15.6 % (12.1-15.1); White Blood Count 7.82 10^3/uL (3.29-11.43)
[2024-02-29 03:43] LABS: Lactic Sepsis W/Reflex 1.2 mmol/L (0.5-2.2)
[2024-02-29 03:46] LABS: Troponin(5th) Baseline 65 ng/L (0-15)
[2024-02-29 03:48] LABS: ABG PH Result 7.39 (7.35-7.45); Arterial Blood Gas Hematocrit 43.5 % (42-52); Base Excess ABG 2.1 mmol/L (-2.0-2.0); Blood Gas Allen Test Pos; Blood Gas Sample Type Arterial; Carboxyhemoglobin 0.7 %THgb (0.4-20.1); HCO3 ABG 27.7 mmol/L (22-26); HGB O2 Sat 93.1 % (95-100); PO2 ABG 73.5 mmHg (80.0-100.0); Total Hemoglobin 14.2 g/dL (14-18)
[2024-02-29 03:49] LABS: Blood Gas LPM 2.5 %; Blood Gas Operator Identificat BUSJA; Blood Gas Sample Site Radial, left; Oxygen Device NC
[2024-02-29 03:53] LABS: Alanine Aminotransferase 12 U/L (0-41); Albumin Level 3.7 g/dL (3.5-5.2); Alkaline Phosphatase 100 U/L (40-130); Anion Gap 15.4 (5-19); Aspartate Amino Transferase 24 U/L (0-40); Blood Urea Nitrogen 23 mg/dL (8-23); Calcium 8.9 mg/dL (8.5-10.5); Carbon Dioxide 27 mmol/L (22-29); Chloride 105 mmol/L (98-107); Creatinine Clr Calc Pharmacy 34.5415; Globulin 3.1 g/dL (1.3-4.6); Glucose 141 mg/dL (65-115); NT Pro B Type Natriuretic Pept 9021 pg/mL (0-450); Osmolality Calculated 302 mOsm/kg (285-295); Potassium 4.4 mmol/L (3.5-5.1); Sodium 143 mmol/L (136-145); Total Bilirubin 0.4 mg/dL (0.15-1.2); Total Protein 6.8 g/dL (6.6-8.7)
[2024-02-29 04:21] LABS: SARS Covid-2 Antigen negative (Negative)
[2024-02-29] MEDS: nitroglycerin 1 gm/inch oint Pkt 1 INCH TOPICAL (04:29)
[2024-02-29] MEDS: FUROsemide 10 mg/mL SDV 10mL 80 MG IVP (04:29)
--- NOTE | 2024-02-29 04:48 | P.HP_ITS ---
Providers/Chief Complaint 2 Admitting Physician: Maricruz Galeano MD Primary Care Provider: Tam Farah DO Chief Complaint: sob History of Present Illness Des Fuller is a 89 year old male, halfway resident at [facility], currently brought to the hospital with chief complaints of worsening dyspnea. Per patient's daughter who is currently at bedside, patient has been experiencing increasing shortness of breath over the past 2 to 3 weeks. He has been tachypneic, has had a new oxygen requirement being maintained at 2 to 3 L/min. He has become increasingly weak, lost weight, unable to feed himself which she was able to do 1 to October of this year. At baseline patient has been nonambulatory since earlier this year. He is usually able to have a conversation, however may be forgetful and difficult to understand sometimes. He has been sent from the halfway today due to increasing shortness of breath and hypoxia. He has been getting some breathing treatments at the halfway but this does not seem to have made a difference. As far as the daughter is aware, he has not recently been on any diuretics. He has not complained of any chest pain. There has been no fever or chills nausea or vomiting per history. Patient is unable to participate in history himself as he is confused. Review of Systems 2 General: Reports: ROS unobtainable due to medical condition Medications/Allergies Home Medications Medication Instructions Recorded Confirmed Last Taken Type clopidogrel 75 mg tablet 75 mg PO QAM 09/13/19 09/10/23 09/09/23 History levothyroxine 50 mcg tablet 50 mcg PO QAM 09/13/19 09/10/23 09/09/23 History acetaminophen 500 mg tablet 1,000 mg PO Q4H PRN Pain 12/23/21 09/10/23 Unknown History nitroglycerin 0.4 mg sublingual 0.4 mg sublingual Q5M PRN Chest 12/23/21 09/10/23 Unknown History tablet (Nitrostat) Pain cetirizine 10 mg tablet 10 mg PO DAILY PRN Allergy Symptoms 02/28/23 09/10/23 Unknown History tamsulosin 0.4 mg capsule 0.4 mg PO DAILY 02/28/23 09/10/23 09/09/23 History hydrocodone 5 mg-acetaminophen 325 1 tab PO Q4H PRN Lumbar and 07/08/23 09/10/23 3 Days Ago Rx mg tablet Thoracic fracture pain 5 days #30 ~08/01/23 tabs isosorbide mononitrate 30 mg 30 mg PO DAILY #30 tabs 07/24/23 09/10/23 09/09/23 Rx tablet,extended release 24 hr tramadol 50 mg tablet 50 mg PO Q8H PRN pain #30 tabs 08/02/23 09/10/23 Unknown Rx docusate sodium 100 mg capsule 100 mg PO BID PRN Constipation 08/04/23 09/10/23 Unknown History (Colace) fluticasone propionate 50 2 spray intranasal DAILY PRN 08/04/23 09/10/23 Unknown History mcg/actuation nasal Allergy Symptoms spray,suspension aspirin 81 mg tablet,delayed 81 mg PO QAM 09/10/23 09/10/23 09/09/23 History release losartan 100 mg tablet 100 mg PO DAILY 09/10/23 09/10/23 09/09/23 History sertraline 100 mg tablet 100 mg PO QAM 09/10/23 09/10/23 09/09/23 History Allergies Allergy/AdvReac Type Severity Reaction Status Date / Time amlodipine Allergy pedal edema Verified 08/04/23 10:21 ciprofloxacin [From Cipro] Allergy Unknown Verified 02/29/24 03:06 hydralazine AdvReac ADR-Headach Verified 08/04/23 10:21 e PFSH Acute 2 PFSH: Medical History Hypothyroidism Chronic kidney disease (CKD) Abnormal nuclear stress test Hypertension Coronary artery disease Hyperlipidemia CVA (cerebral vascular accident) GERD (gastroesophageal reflux disease) Bilateral carotid artery stenosis Osteoarthritis Urolithiasis BPH (benign prostatic hyperplasia) Neurodegenerative gait disorder Sacroiliitis Chronic migraine without aura, intractable, with status migrainosus Surgical History History of heart artery stent x8 H/O lithotripsy Family History Father , AT AGE 72 CAD (coronary artery disease) Stroke Mother , AT AGE 78 CAD (coronary artery disease) Other Hyperlipidemia Hypertension Denies family history of Diabetes Clotting disorder Dementia Chronic kidney disease (CKD) Anesthesia complication Bleeding disorder Lung disease Cancer Social History Smoking and tobacco/nicotine status: never used tobacco/nicotine Alcohol intake: never Substance/Drug Use: never Additional social history: Girlfriend lives with him Adopted: No Caregiver/support person: No Lives independently: Yes Marital status: / Current occupational status: retired Vitals/I&O/Wt Last Vital Signs Temp 97.5 F L 02/29/24 03:00 Pulse 80 02/29/24 04:30 Resp 18 02/29/24 04:30 BP 166/88 02/29/24 04:30 Pulse Ox 95 02/29/24 04:30 O2 Del Method Nasal Cannula 02/29/24 04:30 O2 Flow Rate 2.5 02/29/24 04:30 Weight last 48 hrs Weight 81.647 kg Physical Exam 2 Narrative: General: Appears acutely ill, tachypneic, using accessory muscles HEENT: PERRLA, pupils bilaterally equal and reactive, pallors not present Chest: Crackles bilaterally CVS: S1-S2 regular, no murmurs Abdomen: Soft, nontender, nondistended Neuro: Awake, able to tell me his name, tries to repeat my name back to me. Tracks daughter as she is in the room. However unable to have an extended conversation. Moving bilateral upper extremities. Data 02/29/24 03:10 02/29/24 03:10 Other Labs: Radiology Impressions Chest X-Ray 02/29/24 03:22 IMPRESSION: 1. Mild cardiomegaly with bilateral infiltrates and small pleural effusions. Laboratory Results WBC 7.82 10^3/uL (3.29-11.43) 02/29/24 03:10 RBC 4.54 10^6/uL (3.85-5.65) 02/29/24 03:10 Hgb 13.70 g/dL (11.27-16.99) 02/29/24 03:10 Hct 43.1 % (37-53) 02/29/24 03:10 MCV 94.9 fl (82-101) 02/29/24 03:10 MCH 30.2 pg (27-33) 02/29/24 03:10 MCHC 31.8 g/dL (30-55) 02/29/24 03:10 RDW 15.6 % (12.1-15.1) H 02/29/24 03:10 Plt Count 192 10^3/cmm (157-399) 02/29/24 03:10 MPV 11.1 fL (7.4-10.4) H 02/29/24 03:10 Neut % (Auto) 59.5 % 02/29/24 03:10 Lymph % (Auto) 28.3 % 02/29/24 03:10 [place] % (Auto) 7.4 % 02/29/24 03:10 Eos % (Auto) 3.7 % 02/29/24 03:10 Baso % (Auto) 0.8 % 02/29/24 03:10 Neut # (Auto) 4.66 10^3/uL (1.8-7.7) 02/29/24 03:10 Lymph # (Auto) 2.2 10^3/uL (0.8-4.8) 02/29/24 03:10 [place] # (Auto) 0.6 10^3/uL (0.2-0.9) 02/29/24 03:10 Eos # (Auto) 0.3 10^3/uL (0.0-0.8) 02/29/24 03:10 Baso # (Auto) 0.1 10^3/uL (0.0-0.1) 02/29/24 03:10 Nucleated RBC % (auto) 0 % 02/29/24 03:10 Nucleated RBCs # 0.0 /100WBC 02/29/24 03:10 Specimen Type Arterial 02/29/24 03:20 Sample Site Radial, left 02/29/24 03:20 ABG pH 7.39 (7.35-7.45) 02/29/24 03:20 ABG pCO2 46.0 mmHg (35-45) H 02/29/24 03:20 ABG pO2 73.5 mmHg (80.0-100.0) L 02/29/24 03:20 ABG HCO3 27.7 mmol/L (22-26) H 02/29/24 03:20 ABG Base Excess 2.1 mmol/L (-2.0-2.0) H 02/29/24 03:20 Martin Test Pos 02/29/24 03:20 Hematocrit 43.5 % (42-52) 02/29/24 03:20 Hgb O2 Saturation 93.1 % (95-100) L 02/29/24 03:20 Carboxyhemoglobin 0.7 %THgb (0.4-20.1) 02/29/24 03:20 Methemoglobin 1.0 % (0.4-1.5) 02/29/24 03:20 Total Hemoglobin 14.2 g/dL (14-18) 02/29/24 03:20 O2 Delivery Device Nc 02/29/24 03:20 O2 Liters/Min 2.5 % 02/29/24 03:20 Rubber Moulding Machine Operator ID Busja 02/29/24 03:20 Sodium 143 mmol/L (136-145) 02/29/24 03:10 Potassium 4.4 mmol/L (3.5-5.1) 02/29/24 03:10 Chloride 105 mmol/L (98-107) 02/29/24 03:10 Carbon Dioxide 27 mmol/L (22-29) 02/29/24 03:10 Anion Gap 15.4 (5-19) 02/29/24 03:10 BUN 23 mg/dL (8-23) 02/29/24 03:10 Creatinine 1.6 mg/dL (0.7-1.2) H 02/29/24 03:10 GFR Calculation Not Reportable 02/29/24 03:10 Glucose 141 mg/dL (65-115) H 02/29/24 03:10 Calculated Osmolality 302 mOsm/kg (285-295) H 02/29/24 03:10 Lactic Acid 1.2 mmol/L (0.5-2.2) 02/29/24 03:10 Calcium 8.9 mg/dL (8.5-10.5) 02/29/24 03:10 Total Bilirubin 0.4 mg/dL (0.15-1.2) 02/29/24 03:10 AST 24 U/L (0-40) 02/29/24 03:10 ALT 12 U/L (0-41) 02/29/24 03:10 Alkaline Phosphatase 100 U/L (40-130) 02/29/24 03:10 Troponin T Baseline 65 ng/L (0-15) H 02/29/24 03:10 Troponin T 120 Minute 58.02 ng/L (0-15) H 02/29/24 05:22 Delta Troponin T -6.98 ABS# (0-10) L 02/29/24 05:22 NT-Pro-B Natriuret Pep 9021 pg/mL (0-450) H 02/29/24 03:10 Total Protein 6.8 g/dL (6.6-8.7) 02/29/24 03:10 Albumin 3.7 g/dL (3.5-5.2) 02/29/24 03:10 Globulin 3.1 g/dL (1.3-4.6) 02/29/24 03:10 SARS-CoV-2 Ag (Rapid) negative (Negative) 02/29/24 03:32 A&P Assessment and plan (1) Pulmonary edema: (2) Acute hypoxemic respiratory failure: (3) Pneumonia: (4) Hypertension: Plan 89-year-old male with comorbidities including hypertension, history of coronary artery disease remotely, brought to the emergency room today with 2 to 3 weeks of worsening shortness of breath. Chest x-ray showing bilateral diffuse infiltrates which appear to be most concerning for pulmonary edema. BNP is elevated at 9000. Small bilateral pleural effusions additionally. Patient received 80 mg of IV Lasix in the emergency room, continue with 40 mg IV Lasix every 12 hours Nixon has been placed to closely monitor his urine output Monitor renal function closely with aggressive diuresis. Last echocardiogram dates back to 2021 which had showed a normal LVEF of 66% without regional wall motion abnormalities. There had been note made of a thickened aortic valve and trace aortic regurgitation. Patient has not had any known recent chest pain, however he is not a reliable historian. Will obtain echocardiogram now. EKG today shows no new ST-T wave changes compared to August 2023 Baseline troponin at 65, at 2 hours trended down to 58 with a delta of -6. Pending 6-hour troponin trend. Alternate differential for bilateral infiltrates includes pneumonitis. Check respiratory viral panel. Past history of Pseudomonas aeruginosa pneumonia in 2021, empiric antibiotic coverage with piperacillin/tazobactam while pending evaluation. Supplemental O2 to keep saturation ~92%. Continue home antihypertensive medications including losartan,, continue aspirin and Plavix for uncertain at this time as to requirement of dual antiplatelet therapy, he has not had any stents placed in the last year. Continue Imdur 30 mg p.o. daily DVT prophylaxis: Heparin 5000 every 12 hours DNR/DNI Attestations 2 Medical Necessity Statement*: Greater than 2 midnight stay is anticipated Coding Level of Care Code Acute Code for Chg Fwd High MDM includes number and complexity of problems actively addressed during encounter, amount and/or complexity of data reviewed/ordered and described risk of complication, morbidity or mortality of management as documented Diagnoses Pulmonary edema J81.1 Acute hypoxemic respiratory failure J96.01 Pneumonia J18.9 Essential hypertension I10
[2024-02-29] MEDS: heparin 5,000 unit/mL INJ 1 mL 5000 UNIT SUBCUT ×2 (05:21→17:29)
[2024-02-29] MEDS: piperacillin-tazobactam 3.375 GM in sodium chloride 0.9% (plus) 50 ML IV ×3 (05:36→22:03)
[2024-02-29] MEDS: labetalol 5 mg/mL SDV 20mL 20 MG IVP (05:40)
[2024-02-29 05:47] LABS: Troponin 5 2HR 58.02 ng/L (0-15)
[2024-02-29 05:48] LABS: Troponin 5 2HR Delta -6.98 ABS# (0-10)
--- NOTE | 2024-02-29 06:48 | USCV_ITS ---
Des Fuller Age: 89 Gender: M : 1935 Exam Date: 02/29/2024 08:24 Ordering Phys: Maricruz Galeano MD Technologist: Exam Location: [place] Indication: chf BP: 132 / 80 HR: 101 Rhythm: Sinus Technical Quality: Adequate MEASUREMENTS (Male / Female) Normal Values 2D ECHO LV Diastolic Diameter PLAX 4.5 cm 4.2 - 5.9 / 3.9 - 5.3 cm IVS Diastolic Thickness 0.9 cm 0.6 - 1.0 / 0.6 - 0.9 cm IVS Systolic Thickness 1.1 cm LVPW Diastolic Thickness 1.1 cm 0.6 - 1.0 / 0.6 - 0.9 cm LVPW Systolic Thickness 1.3 cm LVOT Diameter 2.0 cm LV Ejection Fraction 2D Teich 45.4 % LV Ejection Fraction MOD 4C 59.1 % LA Diameter 3.2 cm RA Systolic Volume 4C AL 60.0 ml RA Systolic Volume 4C MOD 57.8 ml Aorta at Sinotubular Diameter 2.9 cm IVC Diameter 2.4 cm M-MODE LA Ao Ratio MM 0.9 AV Cusp Separation MM 1.4 cm DOPPLER AV Peak Velocity 71.0 cm/s LVOT Peak Velocity 62.0 cm/s AV Area Cont Eq vti 3.3 cm squared AV Area Cont Eq pk 2.7 cm squared MV Peak Velocity 83.0 cm/s TV Peak Velocity 96.5 cm/s TV Peak E Velocity 98.0 cm/s Right Atrial Pressure 3.0 mmHg PV Peak Velocity 66.0 cm/s FINDINGS Left Ventricle Left ventricle is normal in size. LV systolic function is mildly reduced with EF of 40 to 45%. Mild to moderate global hypokinesis. Right Ventricle RV function is mild to moderately reduced. Right Atrium Normal in size Left Atrium Normal in size Mitral Valve Mitral valve is thickened. Mild mitral regurgitation. Aortic Valve Aortic valve is thickened. Doppler signals are inadequate to assess aortic stenosis accurately however grossly no significant stenosis seen. Mild aortic regurgitation Tricuspid Valve Insufficient TR jet to calculate RVSP. Pulmonic Valve Not convinced. Pericardium Normal Aorta Normal in size IVC Appears to be normal CONCLUSIONS Technically limited quality echocardiogram because of limited echo windows LV systolic function is mildly reduced with EF of 40-45% RV function is mild to moderately reduced Mild mitral regurgitation Aortic valve is thickened. Doppler signals are inadequate to assess aortic stenosis accurately however grossly no significant stenosis seen. Mild aortic regurgitation Compared to prior echocardiogram from 2021, LV systolic function has decreased now. Gómez Garcia MD (Electronically Signed) Final Date: 29 February 2024 17:08 S
[2024-02-29 06:50] LABS: D Dimer 2.38 ug/mLFEU (0-0.59)
[2024-02-29] MEDS: metoprolol tartrate 25 mg Tablet PO (06:53)
[2024-02-29] MEDS: losartan 50 mg Tablet 100 MG PO (08:12)
[2024-02-29] MEDS: aspirin 81 mg EC Tablet PO (08:12)
[2024-02-29] MEDS: clopidogrel 75 mg Tablet PO (08:12)
[2024-02-29] MEDS: levothyroxine 50 mcg Tablet PO (08:12)
[2024-02-29] MEDS: isosorbide mononitrate ER 30 mg Tablet PO (08:12)
[2024-02-29 08:42] LABS: Adenovirus Not Detected (NOT DETECT); Chlamydia Pneumoniae Not Detected (NOT DETECT); Coronavirus 229E,HKU1,NL63,OC4 Not Detected (NOT DETECT); Human Metapneumovirus Not Detected (NOT DETECT); Human Rhinovirus/Enterovirus Not Detected (NOT DETECT); Influenza A Not Detected (NOT DETECT); Influenza A H1 Not Detected (NOT DETECT); Influenza A H1-2009 Not Detected (NOT DETECT); Influenza A H3 Not Detected (NOT DETECT); Influenza B Not Detected (NOT DETECT); Mycoplasma Pneumoniae Not Detected (NOT DETECT); Parainfluenza Virus Type 1 Not Detected (NOT DETECT); Parainfluenza Virus Type 2 Not Detected (NOT DETECT); Parainfluenza Virus Type 3 Not Detected (NOT DETECT); Parainfluenza Virus Type 4 Not Detected (NOT DETECT); Respiratory Syncytial Virus A Not Detected (NOT DETECT); Respiratory Syncytial Virus B Not Detected (NOT DETECT); SARS-COV-2 Not Detected (NOT DETECT)
--- NOTE | 2024-02-29 09:23 | ECG_ITS ---
[facility] Test Date: 2024-02-29 Pat Name: Des Fuller Department: Room: 253 Gender: Male Academic Support Coordinator: : 1935 Requested By: Delroy Escobar Order Number: [id number] Mar MD: Tree Melton M.D. Measurements Intervals [place] Rate: 66 P: -13 VT: 153 QRS: 70 QRSD: 126 T: 94 QT: 451 QTc: 475 Interpretive Statements SINUS RHYTHM RIGHT BUNDLE BRANCH BLOCK [120+ ms QRS DURATION, UPRIGHT V1, 40+ ms S IN I/aVL/V4/V5/V6] Nonspecific T wave changes in the anterolateral leads Compared to ECG 02/29/2024 03:03:13 Right bundle-branch block now present T-wave abnormality no longer present Electronically Signed On 02-29-2024 22:53:43 CDT by Tree Melton M.D. [id number]
[2024-02-29 09:30] LABS: Troponin 5 6HR 53.67 ng/L (0-15)
[2024-02-29 09:31] LABS: Troponin 5 6HR Delta -11.33 ng/L (0-12)
--- NOTE | 2024-02-29 10:33 | PC.PHAR ---
UPDATED LIST FAXED OVER FROM [facility] 02/29/24
--- NOTE | 2024-02-29 14:25 | P.PN_ITS ---
Subjective 2 Subjective: He tells me he is overall all right, but he appears to be pretreating with objects on his bed. Cannot tell me where he is. Vitals/I&O/Wt Last Vital Signs Temp 97.2 F L 02/29/24 11:50 Pulse 57 L 02/29/24 13:49 Resp 24 H 02/29/24 13:40 BP 117/73 02/29/24 11:50 Pulse Ox 92 02/29/24 13:40 O2 Del Method Nasal Cannula 02/29/24 13:40 O2 Flow Rate 2 02/29/24 13:40 02/28/24 02/29/24 02/29/24 22:59 06:59 14:59 Intake Total 50 / 50 Output Total 1450 / 1450 Balance -1400 / -1400 Weight last 48 hrs Weight 56.699 kg Weight 81.647 kg Physical Exam 2 Const: COMMON NORMALS: alert; negative for patient oriented x3 GENERAL APPEARANCE: cooperative O RIENTATION/CONSCIOUSNESS: Yes awake HENMT: COMMON NORMALS: oropharynx normal Neck/C-Spine: COMMON NORMALS: no JVD Resp: AUSCULTATION: diminished lung sounds (Mildly) Cardio: COMMON NORMALS: no JVD, regular rhythm, S1 normal heart sound present, S2 normal heart sound present and No murmurs present (Cardio) RHYTHM: regular rhythm HEART SOUNDS: S1 normal heart sound present and S2 normal heart sound present GI: COMMON NORMALS: Normal to inspection, nondistended, normoactive bowel sounds present, Soft to palpation and non-tender PALPATION: Yes Soft to palpation Extremity: COMMON NORMALS: no joint enlargement and no pedal edema Neuro: COMMON NORMALS: moves all extremities; negative for patient oriented x3 SENSORIUM/ORIENTATION: Yes alert Skin: COMMON NORMALS: no rashes or lesions noted GENERAL SKIN EXAM: no rashes or lesions noted Urinary Catheter Management: Nixon: Cath Placed During This Visit: yes Reason for Continuing Indwelling Catheter: Acute Urinary Retention or Obstruction Urinary Catheter Date of Insertion: 02/29/24 Urinary Catheter Time of Insertion: 05:15 Data 02/29/24 03:10 02/29/24 03:10 Micro: Microbiology 02/29/24 06:35 Bacterial Antigens - Final Urine,Voided 02/29/24 05:22 Blood Culture - Preliminary Blood SPECIMEN COLLECTED 02/29/24 05:19 Blood Culture - Preliminary Blood SPECIMEN COLLECTED A&P Assessment and plan (1) Pulmonary edema: (2) Acute hypoxemic respiratory failure: (3) Pneumonia: (4) Hypertension: Plan 89-year-old male with comorbidities including hypertension, history of coronary artery disease remotely, brought to the emergency room today with 2 to 3 weeks of worsening shortness of breath. Continue Lasix for pulmonary edema, decompensated diastolic CHF with pulmonary edema. Follow-up echocardiogram. Additionally noted abnormal D-dimer, requesting venous duplex ultrasound. Attempted to call his DPOA Ms. Sears, however, could not reach her to discuss regarding obtaining CTA in the setting of CKD, creatinine 1.6, risk of kidney injury, SHAWN, renal failure. Continue with DVT prophylaxis. Follow-up venous duplex. Reviewed respiratory viral panel, and it is negative. Reviewed vitals, CBC, D- dimer. ABG. CMP. Lactic acid, troponin. Chest x-ray showing bilateral diffuse infiltrates which appear to be most concerning for pulmonary edema. BNP is elevated at 9000. Small bilateral pleural effusions additionally. Reassess electrolytes, kidney function, volume status, at risk of abnormalities with IV diuretics. Discussed with nursing, immigration case worker. Nixon has been placed to closely monitor his urine output Monitor renal function closely with aggressive diuresis. Last echocardiogram dates back to 2021 which had showed a normal LVEF of 66% without regional wall motion abnormalities. There had been note made of a thickened aortic valve and trace aortic regurgitation. Patient has not had any known recent chest pain, however he is not a reliable historian. Troponin with moderate elevation with some flat trend although with mild decrease. Alternate differential for bilateral infiltrates includes pneumonitis. Respiratory viral panel negative. MRSA PCR reviewed, pending. Continue Zosyn with past history of Pseudomonas aeruginosa pneumonia in 2021 Supplemental O2 to keep saturation ~92%. Continue home antihypertensive medications including losartan, continue aspirin and Plavix for uncertain at this time as to requirement of dual antiplatelet therapy, he has not had any stents placed in the last year. Continue Imdur 30 mg p.o. daily Poor historian and not oriented at baseline as per facility. DVT prophylaxis: Heparin 5000 every 12 hours DNR/DNI Attestations 2 Medical Necessity Statement*: Continue admission for assessment management of decompensated diastolic CHF, pneumonia, abnormal D-dimer and a gentleman with underlying CKD, of advanced age. and High MDM includes amount and/or complexity of data reviewed/ordered [ resulted lab(s)/test(s), ordered lab(s)/test(s), independent historian and other healthcare professional discussion] and described risk of complication, morbidity or mortality of management as documented Diagnoses Pulmonary edema J81.1 Acute hypoxemic respiratory failure J96.01 Pneumonia J18.9 Essential hypertension I10
--- NOTE | 2024-02-29 14:40 | USCV_ITS ---
Des Fuller Age: 89 Gender: M : 1935 Exam Date: 02/29/2024 18:02 Ordering Phys: Tai Miles MD Technologist: Crescencio Chavez [place] [facility] [place]: assess for DVT No edema, No erythema. HISTORY: assess for DVT No edema, No erythema. Patient does not answer questions. PROCEDURES: Venous duplex imaging was performed in bilateral lower extremities. The following venous structures were evaluated: common femoral vein, profunda vein, proximal portion of the greater saphenous vein, superficial femoral vein, and the popliteal vein. In addition, the posterior tibial veins were evaluated. Serial compression, augmentation maneuvers, and spectral Doppler flow evaluation were performed, which were normal. Bilaterally, the common femoral, superficial femoral, profunda femoral, popliteal, posterior tibial, and greater saphenous veins were identified and interrogated in the standard fashion. These veins were found to be easily compressible with spontaneous blood flow. No evidence of thrombus noted. CONCLUSIONS No evidence of right lower extremity DVT. No evidence of left lower extremity DVT. Syd Cordoba MD (Electronically Signed) Final Date: 01 March 2024 10:09 S
[2024-02-29] MEDS: FUROsemide 10 mg/mL SDV 4mL 40 MG IVP (17:29)
[2024-03-01] VITALS (11 sets, daily range): BP systolic 122–174; BP diastolic 77–89; PULSE 64–92; RESP 16–20; TEMP 36.4–36.8; O2SAT 92–95
[2024-03-01 04:59] LABS: Basophils # 0.1 10^3/uL (0.0-0.1); Basophils % 0.7 %; Eosinophils # 0.3 10^3/uL (0.0-0.8); Hematocrit 43.9 % (37-53); Lymphocytes # 1.7 10^3/uL (0.8-4.8); Lymphocytes % 17.8 %; Mean Corpuscular HGB Conc 31.7 g/dL (30-55); Mean Corpuscular Hemoglobin 30.2 pg (27-33); Mean Corpuscular Volume 95.4 fl (82-101); Mean Platelet Volume 10.8 fL (7.4-10.4); Monocytes # 0.8 10^3/uL (0.2-0.9); Monocytes % 8.2 %; Neutrophils # 6.63 10^3/uL (1.8-7.7); Neutrophils % 70.1 %; Nucleated Red Blood Cells % 0 %; Platelet Count 196 10^3/cmm (157-399); Red Cell Distribution Width 15.7 % (12.1-15.1); White Blood Count 9.46 10^3/uL (3.29-11.43)
[2024-03-01] MEDS: FUROsemide 10 mg/mL SDV 4mL 40 MG IVP ×2 (05:06→16:31)
[2024-03-01] MEDS: piperacillin-tazobactam 3.375 GM in sodium chloride 0.9% (plus) 50 ML IV ×3 (05:07→21:08)
[2024-03-01] MEDS: heparin 5,000 unit/mL INJ 1 mL 5000 UNIT SUBCUT ×2 (05:08→16:31)
[2024-03-01] MEDS: levothyroxine 50 mcg Tablet PO (05:09)
[2024-03-01] MEDS: clopidogrel 75 mg Tablet PO (05:09)
[2024-03-01] MEDS: aspirin 81 mg EC Tablet PO (05:09)
[2024-03-01 05:28] LABS: Alanine Aminotransferase 11 U/L (0-41); Albumin Level 3.9 g/dL (3.5-5.2); Alkaline Phosphatase 95 U/L (40-130); Anion Gap 17.4 (5-19); Aspartate Amino Transferase 19 U/L (0-40); Blood Urea Nitrogen 22 mg/dL (8-23); Calcium 9.3 mg/dL (8.5-10.5); Carbon Dioxide 26 mmol/L (22-29); Chloride 102 mmol/L (98-107); Creatinine Clr Calc Pharmacy 23.1871; Globulin 3.8 g/dL (1.3-4.6); Glucose 128 mg/dL (65-115); Magnesium 2.1 mg/dL (1.7-2.3); Osmolality Calculated 299 mOsm/kg (285-295); Potassium 3.4 mmol/L (3.5-5.1); Sodium 142 mmol/L (136-145); Total Bilirubin 0.8 mg/dL (0.15-1.2); Total Protein 7.7 g/dL (6.6-8.7)
[2024-03-01] MEDS: ipratropium-albuterol 3 mL Neb INHALATION ×3 (07:56→20:52)
[2024-03-01] MEDS: losartan 50 mg Tablet 100 MG PO (10:00)
[2024-03-01] MEDS: isosorbide mononitrate ER 30 mg Tablet PO (10:00)
[2024-03-01] MEDS: potassium chloride ER 20 mEq Tablet PO (10:03)
[2024-03-01] MEDS: acetaminophen 325 mg Tablet 650 MG PO (10:03)
[2024-03-01 14:09] LABS: Methicillin-Resist S.aureu PCR NOT DETECTED (NOT DETECTED)
--- NOTE | 2024-03-01 15:11 | PM.PN ---
Subjective Subjective: He is having some pain in his back and R shoulder. Vitals/I&O/Wt Last Vital Signs Temp 97.7 F 03/01/24 11:15 Pulse 68 03/01/24 14:48 Resp 16 03/01/24 14:48 BP 154/78 03/01/24 11:15 Pulse Ox 95 03/01/24 14:48 O2 Del Method Nasal Cannula 03/01/24 14:48 O2 Flow Rate 2 03/01/24 14:48 03/01/24 03/01/24 03/01/24 06:59 14:59 22:59 Intake Total 50 / 270 410 / 410 Output Total 1125 / 2775 750 / 750 Balance -1075 / -2505 -340 / -340 Weight last 48 hrs Weight 53.751 kg Weight 56.699 kg Weight 81.647 kg Physical Exam Const: COMMON NORMALS: alert; negative for patient oriented x3 GENERAL APPEARANCE: cooperative ORIENTATION/CONSCIOUSNESS: Yes awake HENMT: COMMON NORMALS: oropharynx normal Neck/C-Spine: COMMON NORMALS: no JVD Resp: AUSCULTATION: diminished lung sounds (Mildly) Cardio: COMMON NORMALS: no JVD, regular rhythm, S1 normal heart sound present, S2 normal heart sound present and No murmurs present (Cardio) RHYTHM: regular rhythm HEART SOUNDS: S1 normal heart sound present and S2 normal heart sound present GI: COMMON NORMALS: Normal to inspection, nondistended, normoactive bowel sounds present, Soft to palpation and non-tender PALPATION: Yes Soft to palpation Extremity: COMMON NORMALS: no joint enlargement and no pedal edema NARRATIVE EXTREMITY EXAM: Right shoulder without any swelling, erythema, tenderness on palpation, reduced PROM, unable to elevate shoulder above about 90 degrees. Neuro: COMMON NORMALS: moves all extremities; negative for patient oriented x3 SENSORIUM/ORIENTATION: Yes alert Skin: COMMON NORMALS: no rashes or lesions noted GENERAL SKIN EXAM: no rashes or lesions noted Urinary Catheter Management: Nixon: Cath Placed During This Visit: yes Reason for Continuing Indwelling Catheter: Acute Urinary Retention or Obstruction Urinary Catheter Date of Insertion: 02/29/24 Urinary Catheter Time of Insertion: 05:15 Data 03/01/24 04:50 03/01/24 04:50 Micro: Microbiology 02/29/24 05:22 Blood Culture - Preliminary Blood NEGATIVE TO DATE 02/29/24 05:19 Blood Culture - Preliminary Blood NEGATIVE TO DATE A&P Assessment and plan (1) Pulmonary edema: (2) Acute hypoxemic respiratory failure: (3) Pneumonia: (4) Hypertension: Plan 89-year-old male with comorbidities including hypertension, history of coronary artery disease remotely, brought to the emergency room today with 2 to 3 weeks of worsening shortness of breath. Reviewed vitals, CBC, CMP, magnesium. Reviewed echocardiogram. Discussed D-dimer, echocardiogram, condition with his daughter who states this is the DPOA. Discussed consideration of possibility of PE with abnormal D-dimer, new hypoxia, discussed new cardiomyopathy, EF decreased down to 40-45%, with CHF, with mild to moderate troponin elevation with downtrend on presentation, cannot exclude possible recent MS, ischemic cardiomyopathy. He has not had chest pain. Discussed his overall condition, discussed consideration of further workup, discussed, or, also regarding his overall functional status, suspected dementia, advanced age. Discussed consideration of goals of care. As per discussion the consensus is it would not be of benefit to him to try to put him through further procedures including stress testing, CT angiogram and other that may risk further complications causing him distress. She states that he has is already has a difficult time adjusting, and was in much distress while having to move to a different room at a retirement. She states it would be okay to treat supportively but avoid any more aggressive testing or interventions. We will continue with IV diuretics at current time, reassess kidney function, electrolytes at risk of electrolyte deficiency, kidney injury, hypovolemia. Anticoagulation deferred. Replace potassium. Recheck magnesium. If remaining stable discussed consideration of discharge back to alf facility tomorrow in the morning. Discussed with nursing, family service caseworker. Chest x-ray showing bilateral diffuse infiltrates which appear to be most concerning for pulmonary edema. BNP is elevated at 9000. Small bilateral pleural effusions additionally. Reassess electrolytes, kidney function, volume status, at risk of abnormalities with IV diuretics. Discussed with nursing, family service caseworker. Hussain has been placed to closely monitor his urine output Monitor renal function closely with aggressive diuresis. Last echocardiogram dates back to 2021 which had showed a normal LVEF of 66% without regional wall motion abnormalities. There had been note made of a thickened aortic valve and trace aortic regurgitation. Patient has not had any known recent chest pain, however he is not a reliable historian. Troponin with moderate elevation with some flat trend although with mild decrease. Alternate differential for bilateral infiltrates includes pneumonitis. Respiratory viral panel negative. MRSA PCR reviewed, pending. Continue Zosyn with past history of Pseudomonas aeruginosa pneumonia in 2021 Supplemental O2 to keep saturation ~92%. Continue home antihypertensive medications including losartan, continue aspirin and Plavix for uncertain at this time as to requirement of dual antiplatelet therapy, he has not had any stents placed in the last year. Continue Imdur 30 mg p.o. daily Poor historian and not oriented at baseline as per facility. DVT prophylaxis: Heparin 5000 every 12 hours DNR/DNI Attestations Medical Necessity Statement*: Continue admission for assessment management of decompensated diastolic CHF with newly worsened EF, pneumonia, abnormal D-dimer and a gentleman with underlying CKD, of advanced age. Diagnoses Pulmonary edema J81.1 Acute hypoxemic respiratory failure J96.01 Pneumonia J18.9 Essential hypertension I10
[2024-03-02] VITALS (8 sets, daily range): BP systolic 126–166; BP diastolic 65–82; PULSE 64–88; RESP 16–18; TEMP 36.4–36.5; O2SAT 91–99
[2024-03-02] MEDS: ipratropium-albuterol 3 mL Neb INHALATION ×2 (03:01→08:22)
[2024-03-02 05:36] LABS: Basophils # 0.1 10^3/uL (0.0-0.1); Basophils % 0.9 %; Eosinophils # 0.4 10^3/uL (0.0-0.8); Eosinophils % 4.7 %; Hematocrit 42.7 % (37-53); Lymphocytes # 1.8 10^3/uL (0.8-4.8); Lymphocytes % 22.3 %; Mean Corpuscular HGB Conc 31.9 g/dL (30-55); Mean Corpuscular Hemoglobin 30.2 pg (27-33); Mean Corpuscular Volume 94.9 fl (82-101); Mean Platelet Volume 10.8 fL (7.4-10.4); Monocytes # 0.8 10^3/uL (0.2-0.9); Monocytes % 9.7 %; Neutrophils # 4.92 10^3/uL (1.8-7.7); Neutrophils % 62.1 %; Nucleated Red Blood Cells % 0 %; Platelet Count 199 10^3/cmm (157-399); Red Cell Distribution Width 15.9 % (12.1-15.1); White Blood Count 7.92 10^3/uL (3.29-11.43)
[2024-03-02] MEDS: FUROsemide 10 mg/mL SDV 4mL 40 MG IVP (05:39)
[2024-03-02] MEDS: levothyroxine 50 mcg Tablet PO (05:39)
[2024-03-02] MEDS: heparin 5,000 unit/mL INJ 1 mL 5000 UNIT SUBCUT (05:39)
[2024-03-02] MEDS: piperacillin-tazobactam 3.375 GM in sodium chloride 0.9% (plus) 50 ML IV (05:39)
[2024-03-02] MEDS: aspirin 81 mg EC Tablet PO (05:39)
[2024-03-02] MEDS: clopidogrel 75 mg Tablet PO (05:39)
[2024-03-02 05:59] LABS: Anion Gap 15.8 (5-19); Blood Urea Nitrogen 27 mg/dL (8-23); Calcium 9.2 mg/dL (8.5-10.5); Carbon Dioxide 30 mmol/L (22-29); Chloride 103 mmol/L (98-107); Creatinine Clr Calc Pharmacy 19.3282; Glucose 117 mg/dL (65-115); Magnesium 2.2 mg/dL (1.7-2.3); Osmolality Calculated 306 mOsm/kg (285-295); Potassium 3.8 mmol/L (3.5-5.1); Sodium 145 mmol/L (136-145)
[2024-03-02] MEDS: losartan 50 mg Tablet 100 MG PO (08:31)
[2024-03-02] MEDS: isosorbide mononitrate ER 30 mg Tablet PO (08:31)
--- NOTE | 2024-03-02 11:17 | PC.SOCIAL ---
IMM Updated Updated pt's sister on IMM. No questions voiced. Provided pt a copy. Initialed, dated, & timed a copy & placed in chart.
--- NOTE | 2024-03-02 21:05 | PM.DCS ---
Discharge Providers Date of Admission: 02/29/24 05:40 Date of Discharge: March 02, 2024 Attending Provider at Admission: Maricruz Galeano MD Attending Provider at Discharge: Tai Miles Primary Care Provider: Tam Farah DO Diagnoses at Discharge Discharge Diagnosis (1) Pulmonary edema: Status: Acute (2) Acute hypoxemic respiratory failure: Status: Acute (3) Pneumonia: Status: Inactive (4) Hypertension: Status: Chronic Reason for Visit Reason for Visit: sob Brief History: Des Fuller is a 89 year old male, halfway resident at [facility], currently brought to the hospital with chief complaints of worsening dyspnea. Per patient's daughter who is currently at bedside, patient has been experiencing increasing shortness of breath over the past 2 to 3 weeks. He has been tachypneic, has had a new oxygen requirement being maintained at 2 to 3 L/min. He has become increasingly weak, lost weight, unable to feed himself which she was able to do 1 to October of this year. At baseline patient has been nonambulatory since earlier this year. He is usually able to have a conversation, however may be forgetful and difficult to understand sometimes. He has been sent from the halfway today due to increasing shortness of breath and hypoxia. He has been getting some breathing treatments at the halfway but this does not seem to have made a difference. As far as the daughter is aware, he has not recently been on any diuretics. He has not complained of any chest pain. There has been no fever or chills nausea or vomiting per history. Patient is unable to participate in history himself as he is confused. Hospital Course Hospital Course He was admitted and treated for acutely decompensated CHF, possible pneumonia, with prior pseudomonal infection covered with Zosyn. Treated with IV diuretics. Assess with echocardiogram which showed new cardiomyopathy with newly decreased ejection fraction down to 40-45%, from previous 66%. Troponin with mild to moderate elevation 60s downtrending to 50s, has not had any chest pain. D-dimer noted with mild abnormality elevated up at 2.38. His breathing had improved with treatment, still requiring 2 L nasal cannula oxygen. Respiratory viral panel was negative. Venous duplex negative for DVT. With progressive functional decline, suspected dementia, advanced age per discussion with his his daughter who is his DPOA, consensus was to avoid further testing or treatment that may be distressing for him as he had already become quite stressed for several weeks after having to be moved to a different room at the halfway. He is referred for more formal assessment by neurology for suspected dementia which has not been formally diagnosed. Otherwise CT angiogram, stress testing and other evaluation had been deferred, with continued supportive measures, he will continue with low-dose oral diuretic, and complete antibiotic course for possible pneumonia. Having overall improved and remaining stable he was discharged to halfway. Physical Exam Const: COMMON NORMALS: alert; negative for patient oriented x3 GENERAL APPEARANCE: cooperative ORIENTATION/CONSCIOUSNESS: Yes awake HENMT: COMMON NORMALS: oropharynx normal Neck/C-Spine: COMMON NORMALS: no JVD Resp: AUSCULTATION: diminished lung sounds (Mildly) Cardio: COMMON NORMALS: no JVD, regular rhythm, S1 normal heart sound present, S2 normal heart sound present and No murmurs present (Cardio) RHYTHM: regular rhythm HEART SOUNDS: S1 normal heart sound present and S2 normal heart sound present GI: COMMON NORMALS: Normal to inspection, nondistended, normoactive bowel sounds present, Soft to palpation and non-tender PALPATION: Yes Soft to palpation Extremity: COMMON NORMALS: no joint enlargement and no pedal edema NARRATIVE EXTREMITY EXAM: Right shoulder without any swelling, erythema, tenderness on palpation, reduced PROM, unable to elevate shoulder above about 90 degrees. Neuro: COMMON NORMALS: moves all extremities; negative for patient oriented x3 SENSORIUM/ORIENTATION: Yes alert Skin: COMMON NORMALS: no rashes or lesions noted GENERAL SKIN EXAM: no rashes or lesions noted Urinary Catheter Management: Nixon: Cath Placed During This Visit: yes Reason for Continuing Indwelling Catheter: Accurate Measurement of Urinary Output in Critically Ill Patients Urinary Catheter Date of Insertion: 02/29/24 Urinary Catheter Time of Insertion: 05:15 Discharge Data Studies Completed and Pending Completed Studies During Hospitalization Category Date Time Status XR chest 1V portable [id number] Stat Exams 02/29/24 03:22 [place] [id number] Routine Ultrasound 02/29/24 14:40 Completed CV. echo complete* [id number] Routine Ultrasound 02/29/24 06:48 Completed Pending at discharge Category Date Time Status Blood Culture Stat Lab 02/29/24 05:22 Results Radiology Impressions Chest X-Ray 02/29/24 03:22 IMPRESSION: 1. Mild cardiomegaly with bilateral infiltrates and small pleural effusions. Laboratory Results WBC 7.92 10^3/uL (3.29-11.43) 03/02/24 05:01 RBC 4.50 10^6/uL (3.85-5.65) 03/02/24 05:01 Hgb 13.60 g/dL (11.27-16.99) 03/02/24 05:01 Hct 42.7 % (37-53) 03/02/24 05:01 MCV 94.9 fl (82-101) 03/02/24 05:01 MCH 30.2 pg (27-33) 03/02/24 05:01 MCHC 31.9 g/dL (30-55) 03/02/24 05:01 RDW 15.9 % (12.1-15.1) H 03/02/24 05:01 Plt Count 199 10^3/cmm (157-399) 03/02/24 05:01 MPV 10.8 fL (7.4-10.4) H 03/02/24 05:01 Neut % (Auto) 62.1 % 03/02/24 05:01 Lymph % (Auto) 22.3 % 03/02/24 05:01 [place] % (Auto) 9.7 % 03/02/24 05:01 Eos % (Auto) 4.7 % 03/02/24 05:01 Baso % (Auto) 0.9 % 03/02/24 05:01 Neut # (Auto) 4.92 10^3/uL (1.8-7.7) 03/02/24 05:01 Lymph # (Auto) 1.8 10^3/uL (0.8-4.8) 03/02/24 05:01 [place] # (Auto) 0.8 10^3/uL (0.2-0.9) 03/02/24 05:01 Eos # (Auto) 0.4 10^3/uL (0.0-0.8) 03/02/24 05:01 Baso # (Auto) 0.1 10^3/uL (0.0-0.1) 03/02/24 05:01 Nucleated RBC % (auto) 0 % 03/02/24 05:01 Nucleated RBCs # 0.0 /100WBC 03/02/24 05:01 D-Dimer 2.38 ug/mLFEU (0-0.59) H 02/29/24 03:10 Specimen Type Arterial 02/29/24 03:20 Sample Site Radial, left 02/29/24 03:20 ABG pH 7.39 (7.35-7.45) 02/29/24 03:20 ABG pCO2 46.0 mmHg (35-45) H 02/29/24 03:20 ABG pO2 73.5 mmHg (80.0-100.0) L 02/29/24 03:20 ABG HCO3 27.7 mmol/L (22-26) H 02/29/24 03:20 ABG Base Excess 2.1 mmol/L (-2.0-2.0) H 02/29/24 03:20 Martin Test Pos 02/29/24 03:20 Hematocrit 43.5 % (42-52) 02/29/24 03:20 Hgb O2 Saturation 93.1 % (95-100) L 02/29/24 03:20 Carboxyhemoglobin 0.7 %THgb (0.4-20.1) 02/29/24 03:20 Methemoglobin 1.0 % (0.4-1.5) 02/29/24 03:20 Total Hemoglobin 14.2 g/dL (14-18) 02/29/24 03:20 O2 Delivery Device Nc 02/29/24 03:20 O2 Liters/Min 2.5 % 02/29/24 03:20 Rn Renal ID Samson 02/29/24 03:20 Sodium 145 mmol/L (136-145) 03/02/24 05:01 Potassium 3.8 mmol/L (3.5-5.1) 03/02/24 05:01 Chloride 103 mmol/L (98-107) 03/02/24 05:01 Carbon Dioxide 30 mmol/L (22-29) H 03/02/24 05:01 Anion Gap 15.8 (5-19) 03/02/24 05:01 BUN 27 mg/dL (8-23) H 03/02/24 05:01 Creatinine 2.1 mg/dL (0.7-1.2) H 03/02/24 05:01 GFR Calculation Not Reportable 03/02/24 05:01 Glucose 117 mg/dL (65-115) H 03/02/24 05:01 Calculated Osmolality 306 mOsm/kg (285-295) H 03/02/24 05:01 Lactic Acid 1.2 mmol/L (0.5-2.2) 02/29/24 03:10 Calcium 9.2 mg/dL (8.5-10.5) 03/02/24 05:01 Magnesium 2.2 mg/dL (1.7-2.3) 03/02/24 05:01 Total Bilirubin 0.8 mg/dL (0.15-1.2) 03/01/24 04:50 AST 19 U/L (0-40) 03/01/24 04:50 ALT 11 U/L (0-41) 03/01/24 04:50 Alkaline Phosphatase 95 U/L (40-130) 03/01/24 04:50 Troponin T Baseline 65 ng/L (0-15) H 02/29/24 03:10 Troponin T 120 Minute 58.02 ng/L (0-15) H 02/29/24 05:22 Delta Troponin T -6.98 ABS# (0-10) L 02/29/24 05:22 Troponin T Hi Sens 6Hr 53.67 ng/L (0-15) H 02/29/24 09:04 Troponin T Hi Sens 6Hr Delta -11.33 ng/L (0-12) L 02/29/24 09:04 NT-Pro-B Natriuret Pep 9021 pg/mL (0-450) H 02/29/24 03:10 Total Protein 7.7 g/dL (6.6-8.7) 03/01/24 04:50 Albumin 3.9 g/dL (3.5-5.2) 03/01/24 04:50 Globulin 3.8 g/dL (1.3-4.6) 03/01/24 04:50 Adenovirus (PCR) Not detected (NOT DETECT) 02/29/24 06:31 C. pneumoniae DNA (PCR) Not detected (NOT DETECT) 02/29/24 06:31 Coronavirus 229E (PCR) Not detected (NOT DETECT) 02/29/24 06:31 Human Metapneumovir PCR Not detected (NOT DETECT) 02/29/24 06:31 Influenza A (H1) PCR Not detected (NOT DETECT) 02/29/24 06:31 Influ A (H1/09) PCR Not detected (NOT DETECT) 02/29/24 06:31 Influenza A (H3) PCR Not detected (NOT DETECT) 02/29/24 06:31 Influenza Type A (PCR) Not detected (NOT DETECT) 02/29/24 06:31 Influenza Type B (PCR) Not detected (NOT DETECT) 02/29/24 06:31 M. pneumoniae (PCR) Not detected (NOT DETECT) 02/29/24 06:31 Parainfluenza 1 (PCR) Not detected (NOT DETECT) 02/29/24 06:31 Parainfluenza 2 (PCR) Not detected (NOT DETECT) 02/29/24 06:31 Parainfluenza 3 (PCR) Not detected (NOT DETECT) 02/29/24 06:31 Parainfluenza 4 (PCR) Not detected (NOT DETECT) 02/29/24 06:31 RSV Type A (PCR) Not detected (NOT DETECT) 02/29/24 06:31 RSV Type B (PCR) Not detected (NOT DETECT) 02/29/24 06:31 Entero/Rhino (PCR) Not detected (NOT DETECT) 02/29/24 06:31 SARS-CoV-2 (PCR) Not detected (NOT DETECT) 02/29/24 06:31 SARS-CoV-2 Ag (Rapid) negative (Negative) 02/29/24 03:32 MRSA (PCR) Not detected (NOT DETECTED) 02/29/24 06:31 Vitals Last Vital Signs Temp 97.5 F L 03/02/24 11:40 Pulse 72 03/02/24 11:40 Resp 18 03/02/24 11:40 BP 139/79 03/02/24 11:40 Pulse Ox 96 03/02/24 11:40 O2 Del Method Nasal Cannula 03/02/24 11:40 O2 Flow Rate 2 03/02/24 08:20 Discharge Plan Discharge Patient Disposition: Xfer SNF Condition: Stable Prescriptions: New amoxicillin-pot clavulanate 875-125 mg tablet 1 tab PO BID Qty: 10 0RF furosemide 20 mg tablet 20 mg PO DAILY Qty: 90 0RF Continued levothyroxine 50 mcg tablet 50 mcg PO QAM aspirin 81 mg tablet,delayed release (DR/EC) 81 mg PO QAM nitroglycerin [Nitrostat] 0.4 mg Tablet, Sublingual 0.4 mg SUBLINGUAL Q5M PRN (Reason: Chest Pain) Rx Instructions: do not exceed 3 doses per episode albuterol sulfate 2.5 mg /3 mL (0.083 %) solution for nebulization 2.5 mg inhalation Q4H PRN (Reason: sob) famotidine 20 mg tablet 20 mg PO QPM omeprazole 20 mg capsule,delayed release(DR/EC) 20 mg PO QAM acetaminophen 325 mg Tablet 325 mg PO Q6H PRN (Reason: FOR FEVER) acetaminophen 325 mg Tablet 650 mg PO TID Milk of Magnesia 400 mg/5 mL Suspension 30 ml PO DAILY PRN (Reason: Constipation) Dulcolax (bisacodyl) 10 mg Suppository [address] DAILY PRN (Reason: Constipation) Fleet Enema 19-7 gram/118 mL Enema [address] DAILY PRN (Reason: Constipation) Biofreeze (menthol) 4 % Gel 1 applic TOPICAL QID PRN (Reason: PAIN OR MUSCLE SPASMS) Discharge Orders: Discharge Order (Routine); Ordered 03/02/24 Ordered By: Tai Miles Referrals: [facility] [Provider Group] - 1 month (We have notified your physician's clinic of the need for a follow-up appointment to be scheduled. If you have not heard from them within the next 2 business days, please call them directly. ) [facility] [Outside] Tam Farah DO [Primary Care Provider] - 4-7 days Discharge Diet: Cardiac Activity Restrictions/Additional Instructions: Continue oxygen 2 L/min, wean down as tolerating, target oxygen saturation 92%. Complete antibiotic course for pneumonia. Continue diuretics for congestive heart failure with finding of new worsening ejection fraction down to 40-45%. Continue with supportive measure, limited goals of care in coordination with patient's daughter. Maintain fall precautions. Please arrange assessment by neurology to further assess for suspected dementia. Discharge Attestations Time Spent in Discharge Care*: greater than 30 min Status at Discharge: Cognitive status at discharge: cognitively intact, Behavioral status at discharge: cooperative, Quality Metrics Clinical Quality Measures [ No reported AMI, CVA or VTE this stay] Coding Level of Care Code 84347 Total time (in minutes) for Discharge: 45 Diagnoses Pulmonary edema J81.1 Acute hypoxemic respiratory failure J96.01 Pneumonia J18.9 Essential hypertension I10
== END 2024-03-02 14:15 | disposition skilled nursing facility (03) | DRG 291 ==
LOC: ER 05:23 → MEDSURG 05:40
PROVIDERS: Admitting Provider Student in an Organized Health Care Education/Training Program; Emergency Provider Emergency Medicine; PCP Internal Medicine; Visit Provider Internal Medicine
DX: I13.0 Hypertensive heart and chronic kidney disease with heart failure and stage 1 through stage 4 chronic kidney disease, or unspecified chronic kidney disease (principal); I50.33 Acute on chronic diastolic (congestive) heart failure; J96.01 Acute respiratory failure with hypoxia; J18.9 Pneumonia, unspecified organism; N18.9 Chronic kidney disease, unspecified; E03.9 Hypothyroidism, unspecified; I25.10 Atherosclerotic heart disease of native coronary artery without angina pectoris; Z95.5 Presence of coronary angioplasty implant and graft; E78.5 Hyperlipidemia, unspecified; Z86.73 Personal history of transient ischemic attack (TIA), and cerebral infarction without residual deficits; K21.9 Gastro-esophageal reflux disease without esophagitis; M19.90 Unspecified osteoarthritis, unspecified site; N40.0 Benign prostatic hyperplasia without lower urinary tract symptoms; G43.709 Chronic migraine without aura, not intractable, without status migrainosus; I25.5 Ischemic cardiomyopathy
CPT/HCPCS: 36415; 51702; 71045; 80048; 80053; 82805; 83605; 83735; 83880; 84484; 85025; 85378; 86403; 87040; 87426; 87486; 87581; 87633; 87641; 93005; 93306; 93970; 94640; 96372; 96374; 99285; J1644; J1940; J2543; J3490

== ENCOUNTER → 2024-03-10 14:51 | Outpatient (BNVA) | payer MEDICARE, OTHER, MEDICAID, SELFPAY | PROVIDERS: PCP Internal Medicine; Referring Provider Internal Medicine; Visit Provider Specialist | DX: R26.9 Unspecified abnormalities of gait and mobility (principal); G30.9 Alzheimer's disease, unspecified; F02.80 Dementia in other diseases classified elsewhere, unspecified severity, without behavioral disturbance, psychotic disturbance, mood disturbance, and anxiety; R47.1 Dysarthria and anarthria | CPT/HCPCS: 99204 ==

== ENCOUNTER 2024-05-20 15:32 | Inpatient (IN) | payer MEDICARE, OTHER, SELFPAY ==
[2024-05-20] VITALS (10 sets, daily range): BP systolic 153–183; BP diastolic 87–143; PULSE 79–118; RESP 17–44; TEMP 36.6–37.4; O2SAT 91–98; BMI 19.8
--- NOTE | 2024-05-20 | XRR_ITS ---
PROCEDURE INFORMATION: Exam: XR Chest Exam date and time: 05/20/2024 4:07 PM Age: 89 years old Clinical indication: Other: CVA TECHNIQUE: Imaging protocol: Radiologic exam of the chest. Views: 1 view. Other technique: Frontal portable upright view of the chest. COMPARISON: CR XR chest 1V portable [id number] 02/29/2024 4:05 AM FINDINGS: Tubes, catheters and devices: EKG leads are present overlying the chest. Lungs: The pulmonary vasculature is less congested and better defined. There is moderate interval improvement in bilateral pulmonary air space opacities in the central and mid-lower lung zones. Increased bibasilar partial atelectasis or infiltrates. Pleural spaces: Interval moderate left and probable mild-moderate right sub pulmonic pleural effusions. No pneumothorax. Heart/Mediastinum: Bilateral hilar, aorticopulmonary window granulomatous noemy calcifications are present. Stable mild cardiomegaly. Mediastinum: Stable. Bones/joints: Stable. XR/XR chest 1V portable [id number] IMPRESSION: 1. Interval moderate left and probable mild-moderate right sub pulmonic pleural effusions. 2. Improved pulmonary vascular congestion. 3. Improved pulmonary edema. 4. Increased bibasilar partial atelectasis or infiltrates.
--- NOTE | 2024-05-20 15:40 | CTR_ITS ---
PROCEDURE INFORMATION: Exam: CT Head Without Contrast Exam date and time: 05/20/2024 3:32 PM Age: 89 years old Clinical indication: Stroke-like symptoms; RT upper extremity weakness TECHNIQUE: Imaging protocol: Computed tomography of the head without contrast. Radiation optimization: All CT scans at this facility use at least one of these dose optimization techniques: automated exposure control; mA and/or kV adjustment per patient size (includes targeted exams where dose is matched to clinical indication); or iterative reconstruction. Other technique: STROKE PROTOCOL was implemented. COMPARISON: CT head wo con* [id number] 08/28/2023 3:18 PM RADIATION DOSE METRICS: Total DLP (mGy-cm): 730.28 FINDINGS: Brain: Chronic lacunar infarction mid right paraventricular moore radiata white matter. Small chronic lacunar infarctions right caudate head and body. Moderate hypoattenuating foci are noted in the central cerebral, posterior superior periatrial and anterior lateral ventricular periventricular white matter bilaterally. No intracranial hemorrhage. No mass or acute cortical infarction identified. Ventricles: Prominence of the ventricular system and subarachnoid spaces is consistent with the patient's age of 89 years. Paranasal sinuses: Visualized sinuses are unremarkable. No fluid levels. Mastoid air cells: Visualized mastoid air cells are well aerated. Orbital cavities: Bilateral prior cataract surgery with lens replacements. Bones: Unremarkable. No acute fracture. Soft tissues: Unremarkable. Vasculature: Atherosclerotic calcifications are present involving the carotid artery siphons and vertebral arteries bilaterally. CT/CT head thrombolytic [id number] IMPRESSION: 1. Chronic lacunar infarction mid right paraventricular moore radiata white matter. 2. Small chronic lacunar infarctions right caudate head and body. 3. Age appropriate supratentorial and infratentorial atrophy. 4. Moderate chronic white matter microvascular ischemic disease. 5. No acute intracranial abnormality identified. ASSESSMENT: ASPECTS ([place] Stroke Program Early CT Score) is 10.
--- NOTE | 2024-05-20 15:42 | ECG_ITS ---
[facility]: [facility]24[facility]20 Pat Name: Des Fuller Department: Room: Gender: Male Artist'S Representative: : [phone] Requested By: Walt Thrasher Order Number: [id number] Mar MD: Tree Melton M.D. Measurements Intervals Jackson Rate: 112 P: 33 PA: 128 QRS: 74 QRSD: 133 T: -14 QT: 367 QTc: 501 Interpretive Statements SINUS TACHYCARDIA POSSIBLE LEFT ATRIAL ENLARGEMENT [-0.1mV P-WAVE IN V1/V2] INTRAVENTRICULAR CONDUCTION DELAY [130+ ms QRS DURATION] Compared to ECG 02/29/2024 09:13:40 Intraventricular conduction delay now present Sinus rhythm no longer present Right bundle-branch block no longer present T-wave abnormality no longer present Electronically Signed On 05-20-2024 22:35:29 PRINTING [employer]PPLIES SALES REPRESENTATIVE by Tree Melton M.D. [email or web address]
[2024-05-20 15:52] LABS: Basophils % 0.3 %; Eosinophils % 0.3 %; Hematocrit 42.1 % (37-53); Lymphocytes # 0.7 10^3/uL (0.8-4.8); Lymphocytes % 5.8 %; Mean Corpuscular HGB Conc 31.8 g/dL (30-55); Mean Corpuscular Hemoglobin 29.3 pg (27-33); Mean Corpuscular Volume 91.9 fl (82-101); Monocytes # 0.5 10^3/uL (0.2-0.9); Monocytes % 4.1 %; Neutrophils # 10.98 10^3/uL (1.8-7.7); Neutrophils % 89.2 %; Nucleated Red Blood Cells % 0 %; Platelet Count 201 10^3/cmm (157-399); Red Blood Count 4.58 10^6/uL (3.85-5.65); Red Cell Distribution Width 13.8 % (12.1-15.1); White Blood Count 12.32 10^3/uL (3.29-11.43)
--- NOTE | 2024-05-20 16:02 | W.ED.NEUROSD ---
HPI - Neuro Symptoms/Deficit General: Chief Complaint: Neuro Symptoms/Deficit Stated Complaint: stroke alert Time Seen by Provider: 05/20/24 15:34 History of Present Illness: Patient brought in by EMS with complaints of slumping to the right side and being nonverbal. Last known well was approximately 1230 today. EMS says normally he can walk and talk. Patient is only able to shake his head yes or no but does understand commands. Blood sugars 219, has right-sided upper extremity weakness while squeezing hands however he can hold his hands up. Patient wears 3 L of oxygen nasal cannula at baseline. Patient does have a history of significant dementia. Related Data Home Medications Medication Instructions Recorded Confirmed levothyroxine 50 mcg tablet 50 mcg PO QAM 09/13/19 05/20/24 aspirin 81 mg tablet,delayed 81 mg PO QAM 09/10/23 05/20/24 release acetaminophen 325 mg tablet 650 mg PO Q6H PRN FOR FEVER 02/29/24 05/20/24 albuterol sulfate 2.5 mg/3 mL 2.5 mg inhalation Q4H PRN sob 02/29/24 05/20/24 (0.083 %) solution for nebulization bisacodyl 10 mg rectal suppository 10 mg [place] DAILY PRN Constipation 02/29/24 05/20/24 (Dulcolax (bisacodyl)) magnesium hydroxide 400 mg/5 mL 30 ml PO DAILY PRN Constipation 02/29/24 05/20/24 oral suspension (Milk of Magnesia) menthol 4 % topical gel (Biofreeze 1 applic topical QID PRN PAIN OR 02/29/24 05/20/24 (menthol)) MUSCLE SPASMS omeprazole 20 mg capsule,delayed 20 mg PO QAM 02/29/24 05/20/24 release sodium phosphates 19 gram-7 118 ml [place] DAILY PRN Constipation 02/29/24 05/20/24 gram/118 mL enema (Fleet Enema) carbamide peroxide 6.5 % ear drops 4 drp otic (ear) BID 05/20/24 05/20/24 (Debrox) morphine concentrate 100 mg/5 mL See Rx Instructions .Route 05/20/24 05/20/24 (20 mg/mL) oral solution .COMPLEX PRN Pain ondansetron HCl 4 mg tablet 4 mg PO Q4H PRN Nausea And Vomiting 05/20/24 05/20/24 oxycodone-acetaminophen 5 mg-325 1 - 2 tab PO Q6H PRN Pain 05/20/24 05/20/24 mg tablet Allergies Allergy/AdvReac Type Severity Reaction Status Date / Time amlodipine Allergy pedal edema Verified 03/10/24 14:54 ciprofloxacin [From Cipro] Allergy Unknown Verified 03/10/24 14:54 hydralazine AdvReac ADR-Headach Verified 03/10/24 14:54 e Review of Systems General: Reports: 10 or more systems reviewed and unremarkable except in HPI and below PFSH ED PFSH: Medical History Hypothyroidism Chronic kidney disease (CKD) Abnormal nuclear stress test Hypertension Coronary artery disease Hyperlipidemia CVA (cerebral vascular accident) GERD (gastroesophageal reflux disease) Bilateral carotid artery stenosis Osteoarthritis Urolithiasis BPH (benign prostatic hyperplasia) Neurodegenerative gait disorder Sacroiliitis Chronic migraine without aura, intractable, with status migrainosus Surgical History History of heart artery stent x8 H/O lithotripsy Family History Father , AT AGE 72 CAD (coronary artery disease) Stroke Mother , AT AGE 78 CAD (coronary artery disease) Other Hyperlipidemia Hypertension Denies family history of Diabetes Clotting disorder Dementia Chronic kidney disease (CKD) Anesthesia complication Bleeding disorder Lung disease Cancer Social History Smoking and tobacco/nicotine status: never used tobacco/nicotine Alcohol intake: never Substance/Drug Use: never Additional social history: Girlfriend lives with him Adopted: No Caregiver/support person: No Lives independently: Yes Marital status: / Current occupational status: retired Physical Exam Const: COMMON NORMALS: no acute distress, average body habitus, no limitations (Only follows some commands), healthy appearing, alert and well nourished; negative for patient oriented x3 (Alert nonverbal unable to assess orientation) HENMT: COMMON NORMALS: normocephalic, atraumatic, hearing grossly normal bilaterally, external ears normal, Normal external nose present and moist oral mucous membranes HEAD & SCALP: normocephalic and atraumatic NOSE: Normal external nose present EXTERNAL EAR: Yes external ears normal Eye: COMMON NORMALS: Equal, round and reactive pupils present, EOMs intact bilaterally, conjunctivae normal and no scleral icterus CONJUNCTIVA: Yes conjunctivae normal PUPIL: Yes Equal, round and reactive pupils present Neck/C-Spine: COMMON NORMALS: full ROM, no lymphadenopathy, supple, no meningeal signs, no JVD and Thyroid normal THYROID: Thyroid normal Chest: COMMONS NORMALS: normal inspection of the chest and normal palpation of entire chest wall Resp: COMMON NORMALS: normal respiratory effort, No retractions, No use of accessory muscles and clear to auscultation bilaterally AUSCULTATION: clear to auscultation bilaterally Cardio: COMMON NORMALS: no JVD, regular rate, regular rhythm, S1 normal heart sound present, S2 normal heart sound present, No gallops present (Cardio), No clicks present (Cardio), No murmurs present (Cardio) and No rub (Cardio) RATE: regular rate RHYTHM: regular rhythm HEART SOUNDS: S1 normal heart sound present and S2 normal heart sound present GI: COMMON NORMALS: Normal to inspection, nondistended, normoactive bowel sounds present, Soft to palpation, non-tender, No hepatosplenomegaly present and no masses PALPATION: Yes Soft to palpation and Yes No hepatosplenomegaly present Neuro: COMMON NORMALS: negative for patient oriented x3 (Alert nonverbal unable to assess orientation) SENSORIUM/ORIENTATION: Yes alert MENINGEAL SIGNS: Yes no meningeal signs Course Vital Signs: Vital signs: Vital Signs Temperature 97.8 F 05/20/24 15:48 Pulse Rate 108 H 05/20/24 15:48 Respiratory Rate 18 05/20/24 15:48 Blood Pressure 168/123 05/20/24 15:48 Pulse Oximetry 95 05/20/24 15:48 Oxygen Delivery Me thod Room Air 05/20/24 15:48 MDM - Neuro Symptoms/Deficit Medical Decision Making Discussed case with Dr. Moreno who said due to his severe dementia he would not be a TNKase candidate as that will increase his risk of bleeding and probable turn this into a hemorrhagic stroke. Discussed the case with Dr. Galeano who's saw him during a recent hospitalization. We will place him in [facility] to continue the rest of the workup. Medical Records I reviewed the patient's medical records. Lab Data I reviewed the patient's lab results. 05/20/24 15:22 05/20/24 15:22 Radiology Impressions Chest X-Ray 05/20/24 00:00 IMPRESSION: 1. Interval moderate left and probable mild-moderate right sub pulmonic pleural effusions. 2. Improved pulmonary vascular congestion. 3. Improved pulmonary edema. 4. Increased bibasilar partial atelectasis or infiltrates. Head CT 05/20/24 15:40 IMPRESSION: 1. Chronic lacunar infarction mid right paraventricular moore radiata white matter. 2. Small chronic lacunar infarctions right caudate head and body. 3. Age appropriate supratentorial and infratentorial atrophy. 4. Moderate chronic white matter microvascular ischemic disease. 5. No acute intracranial abnormality identified. ASSESSMENT: ASPECTS ([place] Stroke Program Early CT Score) is 10. ADDENDUM: 05/20/24 7626 THIS REPORT CONTAINS FINDINGS THAT MAY BE CRITICAL TO PATIENT CARE. The findings were verbally communicated by me to Dr. Walt Thrasher via telephone conference at 3:54 PM APPLICATION CHEMIST on 05/20/2024. The findings were acknowledged and understood. Laboratory Results WBC 12.32 10^3/uL (3.29-11.43) H 05/20/24 15: RBC 4.58 10^6/uL (3.85-5.65) 05/20/24 15:22 Hgb 13.40 g/dL (11.27-16.99) 05/20/24: Hct 42.1 % (37-53) 05/20/24 15: MCV 91.9 fl (82-101) 05/20/24 15:22 MCH 29.3 pg (27-33) 05/20/24 15: MCHC 31.8 g/dL (30-55) 05/20/24 15: RDW 13.8 % (12.1-15.1) 05/20/24 15: Plt Count 201 10^3/cmm (157-399) 05/20/24 15:22 MPV 11.0 fL (7.4-10.4) H 05/20/24 15: Neut % (Auto) 89.2 % 05/20/24 15:22 Lymph % (Auto) 5.8 % 05/20/24 15: Harper % (Auto) 4.1 % 05/20/24 15: Eos % (Auto) 0.3 % 05/20/24 15: Baso % (Auto) 0.3 % 05/20/24 15: Neut # (Auto) 10.98 10^3/uL (1.8-7.7) H 05/20/24 15: Lymph # (Auto) 0.7 10^3/uL (0.8-4.8) L 05/20/24 15: Harper # (Auto) 0.5 10^3/uL (0.2-0.9) 05/20/24 15: Eos # (Auto) 0.0 10^3/uL (0.0-0.8) 05/20/24 15: Baso # (Auto) 0.0 10^3/uL (0.0-0.1) 05/20/24 15: Nucleated RBC % (auto) 0 % 05/20/24: Nucleated RBCs # 0.0 /100WBC 05/20/24 15: PT 13.30 SECONDS (12.1-14.9) 05/20/24 15: INR 0.98 (0.8-1.2) 05/20/24 15: APTT 30.0 SECONDS (23.9-36.7) 05/20/24 15: Sodium 138 mmol/L (136-145) 05/20/24 15: Potassium 4.3 mmol/L (3.5-5.1) 05/20/24 15: Chloride 100 mmol/L (98-107) 05/20/24 15: Carbon Dioxide 28 mmol/L (22-29) 05/20/24 15: Anion Gap 14.3 (5-19) 05/20/24 15: BUN 24 mg/dL (8-23) H 05/20/24 15: Creatinine 1.4 mg/dL (0.7-1.2) H 05/20/24 15:22 GFR Calculation Not Reportable 05/20/24 15: Glucose 192 mg/dL (65-115) H 05/20/24 15:22 Calculated Osmolality 295 mOsm/kg (285-295) 05/20/24 15:22 Calcium 9.5 mg/dL (8.5-10.5) 05/20/24 15:22 Magnesium 2.1 mg/dL (1.7-2.3) 05/20/24 15:22 Total Bilirubin 0.4 mg/dL (0.15-1.2) 05/20/24 15:22 AST 19 U/L (0-40) 05/20/24 15:22 ALT 10 U/L (0-41) 05/20/24 15:22 Alkaline Phosphatase 106 U/L (40-130) 05/20/24 15:22 Troponin T Baseline 47 ng/L (0-15) H 05/20/24 15:22 C-Reactive Protein 20.6 mg/L (0.0-4.9) H 05/20/24 15:22 Total Protein 8.0 g/dL (6.6-8.7) 05/20/24 15:22 Albumin 3.9 g/dL (3.5-5.2) 05/20/24 15:22 Globulin 4.1 g/dL (1.3-4.6) 05/20/24 15:22 TSH 3.15 uIU/mL (0.27-4.20) 05/20/24 15:22 Ethyl Alcohol < 10 mg/dL (0-10) 05/20/24 15:22 All radiology interpretation(s) finalized by discharge Discharge Plan Discharge Patient Disposition: Placed in Observation Clinical Impression: Alzheimer disease CVA (cerebral vascular accident) Qualifiers: CVA mechanism: unspecified Qualified Code(s): I63.9 - Cerebral infarction, unspecified Coding Level of Care Code ED Supervisor Chassis Assembly for Rah Carter
[2024-05-20 16:10] LABS: INR 0.98 (0.8-1.2)
--- NOTE | 2024-05-20 16:13 | PC.PHAR ---
pt is from [facility]
[2024-05-20 16:15] LABS: Troponin(5th) Baseline 47 ng/L (0-15)
[2024-05-20 16:25] LABS: Alanine Aminotransferase 10 U/L (0-41); Albumin Level 3.9 g/dL (3.5-5.2); Alkaline Phosphatase 106 U/L (40-130); Anion Gap 14.3 (5-19); Aspartate Amino Transferase 19 U/L (0-40); Blood Urea Nitrogen 24 mg/dL (8-23); C Reactive Protein 20.6 mg/L (0.0-4.9); Calcium 9.5 mg/dL (8.5-10.5); Carbon Dioxide 28 mmol/L (22-29); Chloride 100 mmol/L (98-107); Creatinine Clr Calc Pharmacy 35.0875; Globulin 4.1 g/dL (1.3-4.6); Glucose 192 mg/dL (65-115); Magnesium 2.1 mg/dL (1.7-2.3); Osmolality Calculated 295 mOsm/kg (285-295); Potassium 4.3 mmol/L (3.5-5.1); Sodium 138 mmol/L (136-145); Thyroid Stimulating Hormone 3.15 uIU/mL (0.27-4.20); Total Bilirubin 0.4 mg/dL (0.15-1.2)
[2024-05-20 16:32] LABS: Alcohol Level < 10 mg/dL (0-10)
--- NOTE | 2024-05-20 17:30 | P.HP_ITS ---
Providers/Chief Complaint 2 Admitting Physician: Maricruz Galeano MD Primary Care Provider: Tam Farah DO Chief Complaint: stroke alert History of Present Illness Des Fuller is a 89 year old male with, assisted resident, with a poor functional status. He is non ambulatory, has had been having a progressive neurological decline since October of this year. He recently saw neurology and March 2024 where he was thought to have progressive Alzheimer dementia. Patient has had a long history of falls, gait instability, dysarthria. At baseline he is able to say yes and no and speaks a few words to his family and friends. He has swallowing trouble and is typically on a pur?ed diet at the assisted. He sent from the assisted today due to further change in mentation. Patient has apparently now become nonverbal, not responding to simple questions which she is typically able to do and not eating at all. He is not recognizing family members. He is noted to have a right facial droop which appears to be worse over baseline and prefers to move his right side instead of his left. He is on 2 L/min supplemental O2. Review of Systems 2 General: Reports: ROS unobtainable due to medical condition and ROS unobtainable due to mental status Medications/Allergies Home Medications Medication Instructions Recorded Confirmed Last Taken Type levothyroxine 50 mcg tablet 50 mcg PO QAM 09/13/19 05/20/24 05/20/24 History aspirin 81 mg tablet,delayed 81 mg PO QAM 09/10/23 05/20/24 05/20/24 History release acetaminophen 325 mg tablet 650 mg PO Q6H PRN FOR FEVER 02/29/24 05/20/24 Unknown History albuterol sulfate 2.5 mg/3 mL 2.5 mg inhalation Q4H PRN sob 02/29/24 05/20/24 Unknown History (0.083 %) solution for nebulization bisacodyl 10 mg rectal suppository 10 mg [place] DAILY PRN Constipation 02/29/24 05/20/24 Unknown History (Dulcolax (bisacodyl)) magnesium hydroxide 400 mg/5 mL 30 ml PO DAILY PRN Constipation 02/29/24 05/20/24 05/10/24 History oral suspension (Milk of Magnesia) menthol 4 % topical gel (Biofreeze 1 applic topical QID PRN PAIN OR 02/29/24 05/20/24 Unknown History (menthol)) MUSCLE SPASMS omeprazole 20 mg capsule,delayed 20 mg PO QAM 02/29/24 05/20/24 05/20/24 History release sodium phosphates 19 gram-7 118 ml [place] DAILY PRN Constipation 02/29/24 05/20/24 Unknown History gram/118 mL enema (Fleet Enema) carbamide peroxide 6.5 % ear drops 4 drp otic (ear) BID 05/20/24 05/20/24 05/20/24 History (Debrox) morphine concentrate 100 mg/5 mL See Rx Instructions .Route 05/20/24 05/20/24 Unknown History (20 mg/mL) oral solution .COMPLEX PRN Pain ondansetron HCl 4 mg tablet 4 mg PO Q4H PRN Nausea And Vomiting 05/20/24 05/20/24 Unknown History oxycodone-acetaminophen 5 mg-325 1 - 2 tab PO Q6H PRN Pain 05/20/24 05/20/24 05/20/24 History mg tablet Allergies Allergy/AdvReac Type Severity Reaction Status Date / Time amlodipine Allergy pedal edema Verified 03/10/24 14:54 ciprofloxacin [From Cipro] Allergy Unknown Verified 03/10/24 14:54 hydralazine AdvReac ADR-Headach Verified 03/10/24 14:54 e PFSH Acute 2 PFSH: Medical History Hypothyroidism Chronic kidney disease (CKD) Abnormal nuclear stress test Hypertension Coronary artery disease Hyperlipidemia CVA (cerebral vascular accident) GERD (gastroesophageal reflux disease) Bilateral carotid artery stenosis Osteoarthritis Urolithiasis BPH (benign prostatic hyperplasia) Neurodegenerative gait disorder Sacroiliitis Chronic migraine without aura, intractable, with status migrainosus Surgical History History of heart artery stent x8 H/O lithotripsy Family History Father , AT AGE 72 CAD (coronary artery disease) Stroke Mother , AT AGE 78 CAD (coronary artery disease) Other Hyperlipidemia Hypertension Denies family history of Diabetes Clotting disorder Dementia Chronic kidney disease (CKD) Anesthesia complication Bleeding disorder Lung disease Cancer Social History Smoking and tobacco/nicotine status: never used tobacco/nicotine Alcohol intake: never Substance/Drug Use: never Additional social history: Girlfriend lives with him Adopted: No Caregiver/support person: No Lives independently: Yes Marital status: / Current occupational status: retired Vitals/I&O/Wt Last Vital Signs Temp 97.8 F 05/20/24 15:48 Pulse 108 H 05/20/24 15:48 Resp 18 05/20/24 15:48 BP 168/123 05/20/24 15:48 Pulse Ox 95 05/20/24 15:48 O2 Del Method Room Air 05/20/24 15:48 Weight last 48 hrs Weight 60.781 kg Physical Exam 2 Narrative: General: No acute distress, AO x1 HEENT: PERRLA, pupils bilaterally equal and reactive, pallors not present Chest: scattered crackles to auscultation B/L CVS: S1-S2 regular, no murmurs, no tachycardia, no gallops, no rubs Abdomen: Soft, nontender, no organomegaly, bowel sounds present Neuro: unable to assess, does not follow commands, rigth noticeable facial droop, appears to prefer right side Data 05/20/24 15:22 05/20/24 15:22 A&P Assessment and plan (1) CVA (cerebral vascular accident): Admit the patient to [facility] for close neuro monitoring He is not a tPA candidate due to unknown onset of symptoms, advanced dementia , unclear how far he is away from his baseline telemetry monitoring to evaluate for underlying arrhythmias. CT head unremarkable Carotid duplex ordered Echocardiogram recently completed in February 2024 showing LVEF of 40 to 45%, RV function mild to moderately reduced, aortic valve thickened aspirin 81 mg daily Atorvastatin 40 mg daily Holding home dose of antihypertensives to allow for permissive hypertension PT OT speech therapy assessment Qualifiers: CVA mechanism: unspecified Qualified Code(s): I63.9 - Cerebral infarction, unspecified Attestations 2 Medical Necessity Statement*: Less than 2 midnight stay is currently anticipated. Coding Level of Care Code Acute Code for Chg Fwd Moderate MDM includes number and complexity of problems actively addressed during encounter, amount and/or complexity of data reviewed/ordered and described risk of complication, morbidity or mortality of management as documented Diagnoses CVA (cerebral vascular accident) I63.9 CVA mechanism: unspecified
[2024-05-20 17:33] LABS: Glucose Point of Care 183 mg/dL (70-110)
--- NOTE | 2024-05-20 17:41 | ECG_ITS ---
[facility] Test Date: 2024-05-20 Pat Name: Des Fuller Department: Room: Gender: Male Personal Injury Attorney: : 1935 Requested By: Walt Thrasher Order Number: [id number] Mar MD: Tree Melton M.D. Measurements Intervals [place] Rate: 107 P: 51 AK: 153 QRS: 83 QRSD: 134 T: 45 QT: 336 QTc: 449 Interpretive Statements SINUS TACHYCARDIA POSSIBLE LEFT ATRIAL ENLARGEMENT [-0.1mV P-WAVE IN V1/V2] RIGHT BUNDLE BRANCH BLOCK [120+ ms QRS DURATION, UPRIGHT V1, 40+ ms S IN I/aVL/V4/V5/V6] Compared to ECG 05/20/2024 15:44:25 Right bundle-branch block now present Intraventricular conduction delay no longer present Electronically Signed On 05-22-2024 20:41:05 ENVIRONMENTAL HEALTH OFFICER by Tree Melton M.D. [email or web address]
[2024-05-20 17:53] LABS: Troponin 5 2HR 46.19 ng/L (0-15)
[2024-05-20 17:54] LABS: Troponin 5 2HR Delta -0.81 ABS# (0-10)
[2024-05-20 18:10] LABS: Bilirubin Urine Negative (Negative); Blood Urine Non-haemolysed trace (Negative); Glucose Urine UA Negative (Normal); Ketones Urine Negative (Negative); Leukocyte Esterase Urine Negative (Negative); Nitrate Urine Negative (Negative); Protein Urine 1+ (Negative); Specific Gravity, Urine 1.016 (1.005-1.030); Urine Appearance Clear (CLEAR); Urine Color Yellow (Yellow); Urobilinogen Urine 0.2 mg/dL (Negative)
[2024-05-20 18:12] LABS: Add Urine Microscopic? YES; Bacteria Urine None Seen /hpf; Hyaline Casts Urine 1.65 /lpf; Squamous Epithelial Cell Urine 0-5 /hpf (0-5); Universal Test for UA Present (0); WBC Urine 0-5 /hpf (0-5)
[2024-05-20 18:17] LABS: Amphetamines Screen Urine Negative (Negative); Barbiturates Screen Urine Negative (Negative); Benzodiazepines Screen Urine Negative (Negative); Cocaine Screen Urine Negative (Negative); Opiate Screen Urine Negative (Negative); PCP Screen Urine Negative (Negative); THC Screen Urine Negative (Negative)
[2024-05-20 18:22] LABS: Add Urine Culture? No
[2024-05-20] MEDS: ALPRAZolam 0.5 mg Tablet PO (20:38)
[2024-05-20] MEDS: hyDRALAzine 20 mg/mL INJ 1 mL 10 MG IVP (20:39)
--- NOTE | 2024-05-20 21:42 | ECG_ITS ---
[email or web address] Test Date: 2024-05-20 Pat Name: Des Fuller Department: Room: 273 Gender: Male Cotton Seed Culler: : 1935 Requested By: Walt Thrasher Order Number: [id number] Manuel MD: Tree Melton M.D. Measurements Intervals [place] Rate: 113 P: 5 OK: 116 QRS: 80 QRSD: 133 T: -7 QT: 379 QTc: 520 Interpretive Statements SINUS TACHYCARDIA WITH SHORT OK INTERVAL RIGHT BUNDLE BRANCH BLOCK [120+ ms QRS DURATION, UPRIGHT V1, 40+ ms S IN I/aVL/V4/V5/V6] Compared to ECG 05/20/2024 17:41:02 Short OK interval now present Electronically Signed On 05-22-2024 20:41:47 SORTER LAUNDRY ARTICLES by Tree Melton M.D. [id number]
[2024-05-20] MEDS: morphine 4 mg/mL SDV 1 mL 2 MG IVP (21:43)
[2024-05-20 21:48] LABS: Estmated Average Glucose 148; Hemoglobin A1C 6.8 % (4.0-6.0)
[2024-05-20 22:07] LABS: Troponin 5 6HR 54.73 ng/L (0-15); Troponin 5 6HR Delta 7.73 ng/L (0-12)
--- NOTE | 2024-05-20 22:19 | PC.NURSE ---
NIH scale unable to complete due to patient unable to follow command to raise arms and legs, unable to response to sensory questions,
[2024-05-21] VITALS (10 sets, daily range): BP systolic 125–160; BP diastolic 65–91; PULSE 82–104; RESP 15–44; TEMP 36.2–37.7; O2SAT 91–95
[2024-05-21 03:25] LABS: Cholesterol 156 mg/dL (0-200); HDL Cholesterol 52 mg/dL (60-100); LDL Cholesterol Calculated 91 mg/dL (50-129); LDL HDL Ratio 1.75 RATIO (0.00-3.22); Triglycerides 67 mg/dL (0-150)
[2024-05-21] MEDS: morphine 4 mg/mL SDV 1 mL 2 MG IVP ×3 (05:05→19:50)
--- NOTE | 2024-05-21 06:00 | USCV_ITS ---
Des Fuller Age: 89 Gender: M : 1935 Exam Date: 05/21/2024 10:22 Ordering Phys: Maricruz Galeano MD Technologist: Cresencio Pichardo [place] [facility] [place]: stroke Risk Factors: Previous Vascular Surgery: Right Brachial BP: / Left Brachial BP: / Right Left Velocity (cm/s) Spectral Plaque Velocity (cm/s) Spectral Plaque Syst/Diast Broadening Syst/Diast Broadening 67.20/ 12.80 Prox CCA 55.50 / 13.50 82.80/ 11.50 Mid CCA 56.20 / 14.20 77.60/ 14.10 Distal CCA 59.30 / 15.00 110.90/14.20 Prox ICA 191.20/ 41.60 99.40/ 14.90 Mid ICA 39.70 / 10.70 39.10/ 12.20 Distal ICA 44.10 / 11.80 63.90 ECA 111.80 1.40 ICA/CCA 3.20 Antegrade Vertebral Antegrade 33.40/ 13.00 cm/s 50.20/ 11.90 cm/s Tri Subclavian Tri 37.70 144.9 0 CONCLUSIONS Right ICA stenosis <50%. Mild atheromatous plaque right carotid bulb/ICA. Left ICA stenosis 50-69%. Moderate atheromatous plaque left carotid bulb/ICA. Intimal thickening in the common carotid arteries and internal carotid arteries bilaterally. Normal antegrade Doppler flow noted in the right vertebral artery. Normal antegrade Doppler flow noted in the left vertebral artery. Syd Cordoba MD (Electronically Signed) Final Date: 23 May 2024 08:53 S
--- NOTE | 2024-05-21 11:47 | PC.SLP ---
Patient is not appropriate for evaluation today per nursing due to being unable to follow commands. Will check again tomorrow.
--- NOTE | 2024-05-21 11:52 | PC.SLP ---
PARALEGAL ASSISTANT attempted to try evaluation, but per nursing patient is not appropriate today due to being unable to follow commands. Will check back tomorrow.
--- NOTE | 2024-05-21 11:53 | PC.OT ---
OT orders received to evaluate and treat. Nursing states OT evaluation is not appropriate at this time secondary to pt.'s inability to follow commands. OT evaluation to be completed at a later date when/if pt. is able to follow commands.
[2024-05-21] MEDS: piperacillin-tazobactam 3.375 GM in sodium chloride 0.9% (plus) 50 ML IV ×2 (14:10→21:19)
--- NOTE | 2024-05-21 14:17 | PC.PT ---
PT attempted eval two times today with initial attempt in AM very sleepy/poor arousal and receiving test. PT attempted again around lunchtime and nursing reports that he is not very coherent at this time and is staying mostly asleep and would not be able to participate or follow any commands at this time. Nursing requests holding evaluation today.
--- NOTE | 2024-05-21 16:32 | P.PN_ITS ---
Subjective 2 Subjective: 02 requirement at 4lpm today, t max 99.8F , coughing and gurgling today, suspect he may have aspirated Medications: Reviewed: Yes Vitals/I&O/Wt Last Vital Signs Temp 99.8 F H 05/21/24 16:12 Pulse 84 05/21/24 16:12 Resp 24 H 05/21/24 15:44 BP 141/65 05/21/24 16:12 Pulse Ox 95 05/21/24 16:12 O2 Del Method Nasal Cannula 05/21/24 16:12 O2 Flow Rate 4 05/21/24 16:12 05/21/24 05/21/24 05/21/24 06:59 14:59 22:59 Output Total 375 / 375 Balance -375 / -345 Weight last 48 hrs Weight 61.745 kg Weight 60.781 kg Weight 60.781 kg Physical Exam 2 Narrative: General: No acute distress, AO x1 HEENT: PERRLA, pupils bilaterally equal and reactive, pallors not present Chest: scattered crackles to auscultation B/L CVS: S1-S2 regular, no murmurs, no tachycardia, no gallops, no rubs Abdomen: Soft, nontender, no organomegaly, bowel sounds present Neuro: unable to assess, does not follow commands, rigth noticeable facial droop, appears to prefer right side Urinary Catheter Management: Nixon Latex: Cath Placed During This Visit: yes Reason for Continuing Indwelling Catheter: Other Urinary Catheter Date of Insertion: 05/20/24 Urinary Catheter Time of Insertion: 17:59 Data 05/20/24 15:22 05/20/24 15:22 A&P Assessment and plan (1) CVA (cerebral vascular accident): Admit the patient to [facility] for close neuro monitoring He is not a tPA candidate due to unknown onset of symptoms, advanced dementia , unclear how far he is away from his baseline telemetry monitoring to evaluate for underlying arrhythmias. CT head unremarkable Carotid duplex ordered Echocardiogram recently completed in February 2024 showing LVEF of 40 to 45%, RV function mild to moderately reduced, aortic valve thickened aspirin 81 mg daily Atorvastatin 40 mg daily Holding home dose of antihypertensives to allow for permissive hypertension PT OT speech therapy assessment In 2023 Interval development of low-grade fever, increased oxygen requirement at 4 L/min, additionally patient has developed new crackles, noted to be gurgling and coughing. Suspect patient has aspirated. Speech therapy assessment is currently pending, however I do not think patient will be able to participate as he still not following commands. He did open his eyes to command and looked at his family members at bedside. He attempted to stop my hand from moving his extremities however had a right-sided preference. Will add piperacillin/tazobactam for aspiration pneumonia. Suspect that component of metabolic encephalopathy may be contributing to his current mentation. Overall patient has guarded prognosis given his advanced dementia, ongoing aspiration and now with interval development of pneumonia. This was discussed with his daughter who is his DPOA. Changed to inpatient admission Qualifiers: CVA mechanism: unspecified Qualified Code(s): I63.9 - Cerebral infarction, unspecified Attestations 2 Medical Necessity Statement*: Greater than 2 midnight admission is anticipated for management of stroke, now also with aspiration pneumonia. Coding Level of Care Code Acute Code for Chg Fwd Moderate MDM includes number and complexity of problems actively addressed during encounter, amount and/or complexity of data reviewed/ordered and described risk of complication, morbidity or mortality of management as documented Diagnoses CVA (cerebral vascular accident) I63.9 CVA mechanism: unspecified
[2024-05-21] MEDS: lanolin oint 7 gm 1 APPLIC TOPICAL (17:21)
[2024-05-22] VITALS (13 sets, daily range): BP systolic 135–159; BP diastolic 73–94; PULSE 73–88; RESP 16–26; TEMP 36.6–37.2; O2SAT 91–98
[2024-05-22] MEDS: morphine 4 mg/mL SDV 1 mL 2 MG IVP ×2 (00:14→09:26)
[2024-05-22 04:04] LABS: Basophils % 0.4 %; Eosinophils % 0.3 %; Hematocrit 35.7 % (37-53); Lymphocytes # 0.9 10^3/uL (0.8-4.8); Lymphocytes % 11.1 %; Mean Corpuscular HGB Conc 31.7 g/dL (30-55); Mean Corpuscular Hemoglobin 29.4 pg (27-33); Mean Platelet Volume 11.4 fL (7.4-10.4); Monocytes # 0.6 10^3/uL (0.2-0.9); Monocytes % 7.8 %; Neutrophils # 6.25 10^3/uL (1.8-7.7); Neutrophils % 80.3 %; Nucleated Red Blood Cells % 0 %; Platelet Count 147 10^3/cmm (157-399); Red Blood Count 3.84 10^6/uL (3.85-5.65); Red Cell Distribution Width 14.2 % (12.1-15.1); White Blood Count 7.78 10^3/uL (3.29-11.43)
[2024-05-22 04:22] LABS: Alanine Aminotransferase 7 U/L (0-41); Albumin Level 3.1 g/dL (3.5-5.2); Alkaline Phosphatase 78 U/L (40-130); Anion Gap 14.4 (5-19); Aspartate Amino Transferase 15 U/L (0-40); Blood Urea Nitrogen 26 mg/dL (8-23); Calcium 9.2 mg/dL (8.5-10.5); Carbon Dioxide 27 mmol/L (22-29); Chloride 108 mmol/L (98-107); Creatinine Clr Calc Pharmacy 28.7815; Globulin 3.4 g/dL (1.3-4.6); Glucose 138 mg/dL (65-115); Osmolality Calculated 307 mOsm/kg (285-295); Potassium 4.4 mmol/L (3.5-5.1); Sodium 145 mmol/L (136-145); Total Bilirubin 0.8 mg/dL (0.15-1.2); Total Protein 6.5 g/dL (6.6-8.7)
[2024-05-22] MEDS: piperacillin-tazobactam 3.375 GM in sodium chloride 0.9% (plus) 50 ML IV ×3 (04:38→21:28)
--- NOTE | 2024-05-22 11:49 | PC.SLP ---
METROLOGY SPECIALIST attempted trials of thickened liquids. Patient opened eyes but would not follow commands to open mouth to consume trials of liquid. Will attempt again tomorrow.
[2024-05-22] MEDS: albuterol 2.5 mg/3 mL Neb INHALATION (14:12)
--- NOTE | 2024-05-22 14:28 | P.PN_ITS ---
Subjective 2 Subjective: Patient is much more alert and awake today. He is sitting up in bed. His daughter is at bedside and he is attempting to have a conversation with her the most of his speech is garbled and dysphagia. Intermittently says words that make sense such as am I ? When did this happen etc. He follows commands to hold fingers and move his hands. Medications: Reviewed: Yes Vitals/I&O/Wt Last Vital Signs Temp 98.2 F 05/22/24 11:05 Pulse 87 05/22/24 14:21 Resp 24 H 05/22/24 14:21 BP 157/93 05/22/24 11:05 Pulse Ox 91 05/22/24 14:21 O2 Del Method Nasal Cannula 05/22/24 14:21 O2 Flow Rate 4.5 05/22/24 14:21 05/21/24 05/22/24 05/22/24 22:59 06:59 14:59 Intake Total 50 / 50 50 / 100 50 / 50 Output Total 350 / 350 200 / 550 Balance -300 / -300 -150 / -450 50 / 50 Weight last 48 hrs Weight 58.649 kg Weight 61.745 kg Weight 60.781 kg Weight 60.781 kg Physical Exam 2 Narrative: General: No acute distress, alert and awake, tracks me while I move across the room and attempts to smile. AO x1 HEENT: PERRLA, pupils bilaterally equal and reactive, pallors not present Chest: scattered crackles to auscultation B/L CVS: S1-S2 regular, no murmurs, no tachycardia, no gallops, no rubs Abdomen: Soft, nontender, no organomegaly, bowel sounds present Neuro: unable to assess, follows commands to hold finger, moves his bilateral upper extremities, turns head from [id number], face is asymmetric, has a right facial droop. Urinary Catheter Management: Nixon Latex: Cath Placed During This Visit: yes Reason for Continuing Indwelling Catheter: Acute Urinary Retention or Obstruction Urinary Catheter Date of Insertion: 05/20/24 Urinary Catheter Time of Insertion: 17:59 Data 05/22/24 02:43 05/22/24 02:43 A&P Assessment and plan (1) CVA (cerebral vascular accident): Admit the patient to [facility] [place] for close neuro monitoring He is not a tPA candidate due to unknown onset of symptoms, advanced dementia , unclear how far he is away from his baseline telemetry monitoring to evaluate for underlying arrhythmias. CT head unremarkable Carotid duplex ordered Echocardiogram recently completed in February 2024 showing LVEF of 40 to 45%, RV function mild to moderately reduced, aortic valve thickened aspirin 81 mg daily Atorvastatin 40 mg daily Holding home dose of antihypertensives to allow for permissive hypertension PT OT speech therapy assessment 2023 Interval development of low-grade fever, increased oxygen requirement at 4 L/min, additionally patient has developed new crackles, noted to be gurgling and coughing. Suspect patient has aspirated. Speech therapy assessment is currently pending, however I do not think patient will be able to participate as he still not following commands. He did open his eyes to command and looked at his family members at bedside. He attempted to stop my hand from moving his extremities however had a right-sided preference. Will add piperacillin/tazobactam for aspiration pneumonia. Suspect that component of metabolic encephalopathy may be contributing to his current mentation. Overall patient has guarded prognosis given his advanced dementia, ongoing aspiration and now with interval development of pneumonia. This was discussed with his daughter who is his DPOA. Changed to inpatient admission 05/22/2024. Patient is much more alert and awake today. As noted above. Daughter is at bedside, confirms that patient is close to baseline mentation. He is more awake than he had been in the last 2 days. He attempts to follow me across the room and attempts to smile. Attempting to have a conversation with the daughter. Leukocytosis is resolved. Afebrile last 24 hours. Continue IV piperacillin/tazobactam for aspiration pneumonia. Since he is more alert and awake today we will start him on a dysphagia 4 diet while pending a speech therapy assessment. Unfortunately his rehab potential remains limited. He has recently been in a wheelchair therefore I am uncertain how much improvement we will be able to achieve over his baseline. Daughter acknowledges understanding of the situation. At a minimum there does appear to be some component of metabolic encephalopathy this patient appears to be much more awake and alert today since initiation of antibiotics for his pneumonia. Anticipate discharge in the upcoming 24 to 48 hours back to SNF with transition to oral antibiotics if continues to do well. Qualifiers: CVA mechanism: unspecified Qualified Code(s): I63.9 - Cerebral infarction, unspecified (2) Aspiration pneumonia: Attestations 2 Medical Necessity Statement*: continue iv antibiotics, appropriate disposition planning Coding Level of Care Code Acute Code for Chg Fwd Diagnoses CVA (cerebral vascular accident) I63.9 CVA mechanism: unspecified Aspiration pneumonia J69.0
[2024-05-22] MEDS: ipratropium-albuterol 3 mL Neb INHALATION (20:30)
[2024-05-22] MEDS: atorvastatin 40 mg Tablet PO (21:28)
[2024-05-23] VITALS (22 sets, daily range): BP systolic 152–169; BP diastolic 74–87; PULSE 74–88; RESP 16–32; TEMP 36.4–37.2; O2SAT 93–99
[2024-05-23] MEDS: ipratropium-albuterol 3 mL Neb INHALATION ×4 (02:33→19:43)
[2024-05-23 05:35] LABS: Basophils % 0.4 %; Eosinophils # 0.1 10^3/uL (0.0-0.8); Eosinophils % 1.3 %; Hematocrit 38.2 % (37-53); Lymphocytes # 0.9 10^3/uL (0.8-4.8); Lymphocytes % 9.1 %; Mean Corpuscular HGB Conc 30.9 g/dL (30-55); Mean Corpuscular Hemoglobin 29.6 pg (27-33); Mean Platelet Volume 10.9 fL (7.4-10.4); Monocytes # 0.6 10^3/uL (0.2-0.9); Neutrophils # 7.74 10^3/uL (1.8-7.7); Neutrophils % 82.9 %; Nucleated Red Blood Cells % 0 %; Platelet Count 148 10^3/cmm (157-399); Red Blood Count 3.98 10^6/uL (3.85-5.65); Red Cell Distribution Width 14.4 % (12.1-15.1); White Blood Count 9.34 10^3/uL (3.29-11.43)
[2024-05-23 05:44] LABS: Alanine Aminotransferase 7 U/L (0-41); Albumin Level 3.1 g/dL (3.5-5.2); Alkaline Phosphatase 80 U/L (40-130); Anion Gap 15.8 (5-19); Aspartate Amino Transferase 14 U/L (0-40); Blood Urea Nitrogen 31 mg/dL (8-23); Calcium 9.2 mg/dL (8.5-10.5); Carbon Dioxide 27 mmol/L (22-29); Chloride 107 mmol/L (98-107); Creatinine Clr Calc Pharmacy 28.7815; Globulin 4.1 g/dL (1.3-4.6); Glucose 148 mg/dL (65-115); Osmolality Calculated 311 mOsm/kg (285-295); Potassium 3.8 mmol/L (3.5-5.1); Sodium 146 mmol/L (136-145); Total Bilirubin 0.7 mg/dL (0.15-1.2); Total Protein 7.2 g/dL (6.6-8.7)
[2024-05-23] MEDS: pantoprazole DR 40 mg Tablet PO (05:50)
[2024-05-23] MEDS: levothyroxine 50 mcg Tablet PO (05:50)
[2024-05-23] MEDS: piperacillin-tazobactam 3.375 GM in sodium chloride 0.9% (plus) 50 ML IV ×3 (05:50→21:39)
[2024-05-23] MEDS: aspirin 81 mg EC Tablet PO (08:44)
--- NOTE | 2024-05-23 09:13 | PC.CHAP ---
Pastoral Care Encounter/Spiritual Assessment Type of Contact [] Declined automatic equipment technician visit [] Patient/Family/Request visit [] Outpatient visit [] Follow-up visit [] Physician referral [] Code/Alert [x] Routine visit [] Staff referral [] Actively dying [] Patient sleeping [] Family support [] [] Out of room [] Palliative care [] [x] Receiving care in room [] Pre-surgical visit [] Trauma [] Long length of stay [] ICU visit [] Other: Relational/Emotional Strength [] Patient feels connected with others/family/visitors/staff [] Distress [] Loneliness/isolation [] Abandonment Spirituality of Patient [] Person of Aisha [] Attends Amish of their Aisha [] Believes in Prayer [] Reads Bible or Mormonism materials [] There are Spiritual issues to be addressed [employer] Interventions [] Prayer [] Active listening [] Non-anxious presence [] Spiritual/emotional support [] Crisis/trauma care [] Spiritual counseling [] Bereavement support [] Provided bereavement packet [] Provided Bible/devotional materials [] Provided toy/stuffed animal, coloring book to patient or family member [] Provided Communion [] Anointing/[place] [] Salvation [] Completed spiritual assessment [] Other: Impact on Illness or Injury [] Angry [] Fearful [] Anxious [] Often cries [] Exhaustion [] Unable to work [] Unable to attend sabianist [] Unable to walk/stand [] Unable to read [] Unable to drive [] Unable to eat/drink [] Unable to sleep [] Unable to be with family [] Patient intubated [] Other: Summary Time spent with patient
--- NOTE | 2024-05-23 12:15 | P.PN_ITS ---
Subjective 2 Subjective: Seen this morning. No acute events overnight. Patient sitting up on edge of bed. States he is in the hospital. Does not know what year it is. Knows his name and date of . Vitals/I&O/Wt Last Vital Signs Temp 97.7 F 05/23/24 11:34 Pulse 87 05/23/24 11:34 Resp 20 H 05/23/24 11:34 BP 169/76 05/23/24 11:34 Pulse Ox 97 05/23/24 11:34 O2 Del Method Nasal Cannula 05/23/24 11:34 O2 Flow Rate 4.5 05/23/24 07:37 05/22/24 05/23/24 05/23/24 22:59 06:59 14:59 Intake Total 270 / 320 70 / 390 120 / 120 Output Total 750 / 750 300 / 1050 Balance -480 / -430 -230 / -660 120 / 120 Weight last 48 hrs Weight 61.433 kg Weight 58.649 kg Physical Exam 2 Narrative: General: No acute distress, alert and awake, AO x2 HEENT: PERRLA, pupils bilaterally equal and reactive, pallors not present Chest: scattered crackles to auscultation B/L CVS: S1-S2 regular, no murmurs, no tachycardia, no gallops, no rubs Abdomen: Soft, nontender, no organomegaly, bowel sounds present Neuro: unable to assess, follows some commands, turns head from [id number], face is asymmetric, has a right facial droop. Urinary Catheter Management: Nixon Latex: Cath Placed During This Visit: yes Reason for Continuing Indwelling Catheter: Acute Urinary Retention or Obstruction Urinary Catheter Date of Insertion: 05/20/24 Urinary Catheter Time of Insertion: 17:59 Data 05/23/24 03:54 05/23/24 03:54 A&P Assessment and plan (1) CVA (cerebral vascular accident): Admit the patient to [facility] for close neuro monitoring He is not a tPA candidate due to unknown onset of symptoms, advanced dementia , unclear how far he is away from his baseline telemetry monitoring to evaluate for underlying arrhythmias. CT head unremarkable Carotid duplex ordered Echocardiogram recently completed in February 2024 showing LVEF of 40 to 45%, RV function mild to moderately reduced, aortic valve thickened aspirin 81 mg daily Atorvastatin 40 mg daily Holding home dose of antihypertensives to allow for permissive hypertension PT OT speech therapy assessment 2023 Interval development of low-grade fever, increased oxygen requirement at 4 L/min, additionally patient has developed new crackles, noted to be gurgling and coughing. Suspect patient has aspirated. Speech therapy assessment is currently pending, however I do not think patient will be able to participate as he still not following commands. He did open his eyes to command and looked at his family members at bedside. He attempted to stop my hand from moving his extremities however had a right-sided preference. Will add piperacillin/tazobactam for aspiration pneumonia. Suspect that component of metabolic encephalopathy may be contributing to his current mentation. Overall patient has guarded prognosis given his advanced dementia, ongoing aspiration and now with interval development of pneumonia. This was discussed with his daughter who is his DPOA. Changed to inpatient admission 05/22/2024. Patient is much more alert and awake today. As noted above. Daughter is at bedside, confirms that patient is close to baseline mentation. He is more awake than he had been in the last 2 days. He attempts to follow me across the room and attempts to smile. Attempting to have a conversation with the daughter. Leukocytosis is resolved. Afebrile last 24 hours. Continue IV piperacillin/tazobactam for aspiration pneumonia. Since he is more alert and awake today we will start him on a dysphagia 4 diet while pending a speech therapy assessment. Unfortunately his rehab potential remains limited. He has recently been in a wheelchair therefore I am uncertain how much improvement we will be able to achieve over his baseline. Daughter acknowledges understanding of the situation. At a minimum there does appear to be some component of metabolic encephalopathy this patient appears to be much more awake and alert today since initiation of antibiotics for his pneumonia. Anticipate discharge in the upcoming 24 to 48 hours back to SNF with transition to oral antibiotics if continues to do well. 05/23/2024 No family available at bedside today. Patient is awake alert. Sitting up at the edge of the bed. Labs are improved. Sodium 146 today. Creatinine 1.5. [address] on D5 water at 30 cc/h. ? Continue on Zosyn at this time to treat for aspiration pneumonia. Carotid Dopplers negative for stenosis. CT head negative for stroke If patient continues to be stable by tomorrow plan to send to senior living. Qualifiers: CVA mechanism: unspecified Qualified Code(s): I63.9 - Cerebral infarction, unspecified (2) Aspiration pneumonia: Attestations 2 Medical Necessity Statement*: Continue IV antibiotics today. Observe patient for tach 24 hours. If continues to remain stable will discharge to senior living Diagnoses CVA (cerebral vascular accident) I63.9 CVA mechanism: unspecified Aspiration pneumonia J69.0
--- NOTE | 2024-05-23 12:38 | PC.SOCIAL ---
IMM updated IMM dated and initialed, copy placed in chart and copy given to patient
[2024-05-23] MEDS: dextrose 5% 1,000 ML 50 ML IV (15:18)
[2024-05-23] MEDS: ALPRAZolam 0.5 mg Tablet PO (20:28)
[2024-05-23] MEDS: atorvastatin 40 mg Tablet PO (20:28)
[2024-05-23] MEDS: oxyCODONE-APAP 5-325 mg Tablet 1 TAB PO (20:43)
[2024-05-24] VITALS (10 sets, daily range): BP systolic 142–178; BP diastolic 80–89; PULSE 74–84; RESP 17–18; TEMP 36.4–37.1; O2SAT 93–99
[2024-05-24] MEDS: ipratropium-albuterol 3 mL Neb INHALATION (03:03)
[2024-05-24 04:09] LABS: Basophils % 0.2 %; Eosinophils # 0.2 10^3/uL (0.0-0.8); Eosinophils % 2.3 %; Hematocrit 33.8 % (37-53); Lymphocytes % 11.9 %; Mean Corpuscular HGB Conc 30.8 g/dL (30-55); Mean Corpuscular Volume 94.2 fl (82-101); Mean Platelet Volume 10.8 fL (7.4-10.4); Monocytes # 0.7 10^3/uL (0.2-0.9); Monocytes % 7.7 %; Neutrophils # 6.72 10^3/uL (1.8-7.7); Neutrophils % 77.2 %; Nucleated Red Blood Cells % 0 %; Platelet Count 129 10^3/cmm (157-399); Red Blood Count 3.59 10^6/uL (3.85-5.65); Red Cell Distribution Width 14.1 % (12.1-15.1); White Blood Count 8.71 10^3/uL (3.29-11.43)
[2024-05-24 04:29] LABS: Anion Gap 11.2 (5-19); Blood Urea Nitrogen 24 mg/dL (8-23); Carbon Dioxide 28 mmol/L (22-29); Chloride 108 mmol/L (98-107); Creatinine Clr Calc Pharmacy 37.9509; Glucose 161 mg/dL (65-115); Magnesium 2.2 mg/dL (1.7-2.3); Osmolality Calculated 306 mOsm/kg (285-295); Potassium 3.2 mmol/L (3.5-5.1); Sodium 144 mmol/L (136-145)
[2024-05-24] MEDS: levothyroxine 50 mcg Tablet PO (05:19)
[2024-05-24] MEDS: piperacillin-tazobactam 3.375 GM in sodium chloride 0.9% (plus) 50 ML IV (05:19)
[2024-05-24] MEDS: pantoprazole DR 40 mg Tablet PO (05:19)
[2024-05-24] MEDS: aspirin 81 mg EC Tablet PO (08:42)
--- NOTE | 2024-05-24 09:54 | PC.CHAP ---
Pastoral Care Encounter/Spiritual Assessment Type of Contact [] Declined pad assembler visit [] Patient/Family/Request visit [] Outpatient visit [] Follow-up visit [] Physician referral [] Code/Alert [] Routine visit [] Staff referral [] Actively dying [x] Patient sleeping [] Family support [] [] Out of room [] Palliative care [] [] Receiving care in room [] Pre-surgical visit [] Trauma [] Long length of stay [] ICU visit [] Other: Relational/Emotional Strength [] Patient feels connected with others/family/visitors/staff [] Distress [] Loneliness/isolation [] Abandonment Spirituality of Patient [] Person of Aisha [] Attends Spiritism of their Aisha [] Believes in Prayer [] Reads Bible or Rastafarian materials [] There are Spiritual issues to be addressed Crisis Worker Interventions [] Prayer [] Active listening [] Non-anxious presence [] Spiritual/emotional support [] Crisis/trauma care [] Spiritual counseling [] Bereavement support [] Provided bereavement packet [] Provided Bible/devotional materials [] Provided toy/stuffed animal, coloring book to patient or family member [] Provided Communion [] Anointing/[place] [] Salvation [] Completed spiritual assessment [] Other: Impact on Illness or Injury [] Angry [] Fearful [] Anxious [] Often cries [] Exhaustion [] Unable to work [] Unable to attend confucianist [] Unable to walk/stand [] Unable to read [] Unable to drive [] Unable to eat/drink [] Unable to sleep [] Unable to be with family [] Patient intubated [] Other: Summary Time spent with patient
[2024-05-24 11:12] LABS: SARS Covid-2 Antigen Negative (Negative)
--- NOTE | 2024-05-24 12:50 | P.DS_ITS ---
Discharge Providers Date of Admission: 05/21/24 13:25 Date of Discharge: May 24, 2024 Attending Provider at Admission: Maricruz Galeano MD Attending Provider at Discharge: Mitali Hilton MD Primary Care Provider: Tam Farah DO Diagnoses at Discharge Discharge Diagnosis (1) CVA (cerebral vascular accident): Status: Chronic Qualifiers: CVA mechanism: unspecified Qualified Code(s): I63.9 - Cerebral infarction, unspecified (2) Aspiration pneumonia: Status: Resolved Reason for Visit Reason for Visit: stroke alert Hospital Course Hospital Course (1) CVA (cerebral vascular accident): Admit the patient [facility] for close neuro monitoring He is not a tPA candidate due to unknown onset of symptoms, advanced dementia , unclear how far he is away from his baseline telemetry monitoring to evaluate for underlying arrhythmias. CT head unremarkable Carotid duplex ordered Echocardiogram recently completed in February 2024 showing LVEF of 40 to 45%, RV function mild to moderately reduced, aortic valve thickened aspirin 81 mg daily Atorvastatin 40 mg daily Holding home dose of antihypertensives to allow for permissive hypertension PT OT speech therapy assessment 2023 Interval development of low-grade fever, increased oxygen requirement at 4 L/min, additionally patient has developed new crackles, noted to be gurgling and coughing. Suspect patient has aspirated. Speech therapy assessment is currently pending, however I do not think patient will be able to participate as he still not following commands. He did open his eyes to command and looked at his family members at bedside. He attempted to stop my hand from moving his extremities however had a right-sided preference. Will add piperacillin/tazobactam for aspiration pneumonia. Suspect that component of metabolic encephalopathy may be contributing to his current mentation. Overall patient has guarded prognosis given his advanced dementia, ongoing aspiration and now with interval development of pneumonia. This was discussed with his daughter who is his DPOA. Changed to inpatient admission 05/22/2024. Patient is much more alert and awake today. As noted above. Daughter is at bedside, confirms that patient is close to baseline mentation. He is more awake than he had been in the last 2 days. He attempts to follow me across the room and attempts to smile. Attempting to have a conversation with the daughter. Leukocytosis is resolved. Afebrile last 24 hours. Continue IV piperacill in/tazobactam for aspiration pneumonia. Since he is more alert and awake today we will start him on a dysphagia 4 diet while pending a speech therapy assessment. Unfortunately his rehab potential remains limited. He has recently been in a wheelchair therefore I am uncertain how much improvement we will be able to achieve over his baseline. Daughter acknowledges understanding of the situation. At a minimum there does appear to be some component of metabolic encephalopathy this patient appears to be much more awake and alert today since initiation of antibiotics for his pneumonia. Anticipate discharge in the upcoming 24 to 48 hours back to SNF with transition to oral antibiotics if continues to do well. 05/23/2024 No family available at bedside today. Patient is awake alert. Sitting up at the edge of the bed. Labs are improved. Sodium 146 today. Creatinine 1.5. Will place on D5 water at 30 cc/h. ? Continue on Zosyn at this time to treat for aspiration pneumonia. Carotid Dopplers negative for stenosis. CT head negative for stroke If patient continues to be stable by tomorrow plan to send to longterm 06/03/2024 - pt stable and at his baseline sodium has improved dc to snf Physical Exam Narrative: General: No acute distress, alert and awake, AO x2 HEENT: PERRLA, pupils bilaterally equal and reactive, pallors not present Chest: mild ronchi auscultation B/L CVS: S1-S2 regular, no murmurs, no tachycardia, no gallops, no rubs Abdomen: Soft, nontender, no organomegaly, bowel sounds present Neuro: unable to assess, follows some commands, turns head from [id number], face is asymmetric, has a right facial droop. Urinary Catheter Management: Nixon Latex: Cath Placed During This Visit: yes Reason for Continuing Indwelling Catheter: Acute Urinary Retention or Obstruction Urinary Catheter Date of Insertion: 05/20/24 Urinary Catheter Time of Insertion: 17:59 Discharge Data Studies Completed and Pending Completed Studies During Hospitalization Category Date Time Status CT head thrombolytic [id number] Stat Cat Scan 05/20/24 15:40 Completed XR chest 1V portable [id number] Stat Exams 05/20/24 Completed CV carotid duplex BI* [id number] Routine Ultrasound 05/21/24 06:00 Completed Radiology Impressions Chest X-Ray 05/20/24 00:00 IMPRESSION: 1. Interval moderate left and probable mild-moderate right sub pulmonic pleural effusions. 2. Improved pulmonary vascular congestion. 3. Improved pulmonary edema. 4. Increased bibasilar partial atelectasis or infiltrates. Head CT 05/20/24 15:40 IMPRESSION: 1. Chronic lacunar infarction mid right paraventricular moore radiata white matter. 2. Small chronic lacunar infarctions right caudate head and body. 3. Age appropriate supratentorial and infratentorial atrophy. 4. Moderate chronic white matter microvascular ischemic disease. 5. No acute intracranial abnormality identified. ASSESSMENT: ASPECTS ([place] Stroke Program Early CT Score) is 10. ADDENDUM: 05/20/24 [id number] THIS REPORT CONTAINS FINDINGS THAT MAY BE CRITICAL TO PATIENT CARE. The findings were verbally communicated by me to Dr. Walt Thrasher via telephone conference at 3:54 PM [employer] on 05/20/2024. The findings were acknowledged and understood. Laboratory Results WBC 8.71 10^3/uL (3.29-11.43) 05/24/24 03:47 RBC 3.59 10^6/uL (3.85-5.65) L 05/24/24 03:47 Hgb 10.40 g/dL (11.27-16.99) L 05/24/24 03:47 Hct 33.8 % (37-53) L 05/24/24 03:47 MCV 94.2 fl (82-101) 05/24/24 03:47 MCH 29.0 pg (27-33) 05/24/24 03:47 MCHC 30.8 g/dL (30-55) 05/24/24 03:47 RDW 14.1 % (12.1-15.1) 05/24/24 03:47 Plt Count 129 10^3/cmm (157-399) L 05/24/24 03:47 MPV 10.8 fL (7.4-10.4) H 05/24/24 03:47 Neut % (Auto) 77.2 % 05/24/24 03:47 Lymph % (Auto) 11.9 % 05/24/24 03:47 [place] % (Auto) 7.7 % 05/24/24 03:47 Eos % (Auto) 2.3 % 05/24/24 03:47 Baso % (Auto) 0.2 % 05/24/24 03:47 Neut # (Auto) 6.72 10^3/uL (1.8-7.7) 05/24/24 03:47 Lymph # (Auto) 1.0 10^3/uL (0.8-4.8) 05/24/24 03:47 [place] # (Auto) 0.7 10^3/uL (0.2-0.9) 05/24/24 03:47 Eos # (Auto) 0.2 10^3/uL (0.0-0.8) 05/24/24 03:47 Baso # (Auto) 0.0 10^3/uL (0.0-0.1) 05/24/24 03:47 Nucleated RBC % (auto) 0 % 05/24/24 03:47 Nucleated RBCs # 0.0 /100WBC 05/24/24 03:47 PT 13.30 SECONDS (12.1-14.9) 05/20/24 15:22 INR 0.98 (0.8-1.2) 05/20/24 15:22 APTT 30.0 SECONDS (23.9-36.7) 05/20/24 15:22 Sodium 144 mmol/L (136-145) 05/24/24 03:47 Potassium 3.2 mmol/L (3.5-5.1) L 05/24/24 03:47 Chloride 108 mmol/L (98-107) H 05/24/24 03:47 Carbon Dioxide 28 mmol/L (22-29) 05/24/24 03:47 Anion Gap 11.2 (5-19) 05/24/24 03:47 BUN 24 mg/dL (8-23) H 05/24/24 03:47 Creatinine 1.3 mg/dL (0.7-1.2) H 05/24/24 03:47 GFR Calculation Not Reportable 05/24/24 03:47 Glucose 161 mg/dL (65-115) H 05/24/24 03:47 POC Glucose 183 mg/dL (70-110) H 05/20/24 15:40 Estimat Average Glucose 148 05/20/24 15:22 Hemoglobin A1c 6.8 % (4.0-6.0) H 05/20/24 15:22 Calculated Osmolality 306 mOsm/kg (285-295) H 05/24/24 03:47 Calcium 8.0 mg/dL (8.5-10.5) L 05/24/24 03:47 Magnesium 2.2 mg/dL (1.7-2.3) 05/24/24 03:47 Total Bilirubin 0.7 mg/dL (0.15-1.2) 05/23/24 03:54 AST 14 U/L (0-40) 05/23/24 03:54 ALT 7 U/L (0-41) 05/23/24 03:54 Alkaline Phosphatase 80 U/L (40-130) 05/23/24 03:54 Troponin T Baseline 47 ng/L (0-15) H 05/20/24 15:22 Troponin T 120 Minute 46.19 ng/L (0-15) H 05/20/24 17:17 Delta Troponin T -0.81 ABS# (0-10) L 05/20/24 17:17 Troponin T Hi Sens 6Hr 54.73 ng/L (0-15) H 05/20/24 21:22 Troponin T Hi Sens 6Hr Delta 7.73 ng/L (0-12) 05/20/24 21:22 C-Reactive Protein 20.6 mg/L (0.0-4.9) H 05/20/24 15:22 Total Protein 7.2 g/dL (6.6-8.7) 05/23/24 03:54 Albumin 3.1 g/dL (3.5-5.2) L 05/23/24 03:54 Globulin 4.1 g/dL (1.3-4.6) 05/23/24 03:54 Triglycerides 67 mg/dL (0-150) 05/21/24 02:24 Cholesterol 156 mg/dL (0-200) 05/21/24 02:24 LDL Cholesterol, Calc 91 mg/dL (50-129) 05/21/24 02:24 HDL Cholesterol 52 mg/dL (60-100) L 05/21/24 02:24 LDL/HDL Ratio 1.75 RATIO (0.00-3.22) 05/21/24 02:24 Cholesterol/HDL Ratio 3.00 mg/dL (1.0-5.00) 05/21/24 02:24 TSH 3.15 uIU/mL (0.27-4.20) 05/20/24 15:22 Urine Color Yellow (Yellow) 05/20/24 17:50 Urine Appearance Clear (CLEAR) 05/20/24 17:50 Urine pH 7.0 (5-7) 05/20/24 17:50 Ur Specific [place] 1.016 (1.005-1.030) 05/20/24 17:50 Urine Protein 1+ (Negative) A 05/20/24 17:50 Urine Glucose (UA) Negative (Normal) 05/20/24 17:50 Urine Ketones Negative (Negative) 05/20/24 17:50 Urine Blood Non-haemolysed trace (Negative) 05/20/24 17:50 Urine Nitrate Negative (Negative) 05/20/24 17:50 Urine Bilirubin Negative (Negative) 05/20/24 17:50 Urine Urobilinogen 0.2 mg/dL (Negative) 05/20/24 17:50 Ur Leukocyte Esterase Negative (Negative) 05/20/24 17:50 Urine RBC 6-10 /hpf (0-2) 05/20/24 17:50 Urine WBC 0-5 /hpf (0-5) 05/20/24 17:50 Ur Squamous Epith Cells 0-5 /hpf (0-5) 05/20/24 17:50 Amorphous Sediment Not Reportable 05/20/24 17:50 Urine Bacteria None seen /hpf (NONE) 05/20/24 17:50 Hyaline Casts 1.65 /lpf 05/20/24 17:50 Urine Opiates Screen Negative ng/mL (Negative) 05/20/24 17:50 Ur Barbiturates Screen Negative ng/mL (Negative) 05/20/24 17:50 Ur Phencyclidine Scrn Negative ng/mL (Negative) 05/20/24 17:50 Ur Amphetamines Screen Negative ng/mL (Negative) 05/20/24 17:50 U Benzodiazepines Scrn Negative ng/mL (Negative) 05/20/24 17:50 Urine Cocaine Screen Negative ng/mL (Negative) 05/20/24 17:50 U Marijuana (THC) Screen Negative ng/mL (Negative) 05/20/24 17:50 Ethyl Alcohol < 10 mg/dL (0-10) 05/20/24 15:22 SARS-CoV-2 Ag (Rapid) Negative (Negative) 05/24/24 08:40 Vitals Last Vital Signs Temp 98.6 F 05/24/24 11:29 Pulse 76 05/24/24 11:29 Resp 17 05/24/24 11:29 BP 142/80 05/24/24 11:29 Pulse Ox 93 05/24/24 11:29 O2 Del Method Nasal Cannula 05/24/24 11:29 O2 Flow Rate 3 05/24/24 11:29 Discharge Plan Discharge Patient Disposition: Xfer [facility] Condition: Stable Prescriptions: New atorvastatin 40 mg Tablet 40 mg PO BEDTIME Qty: 30 0RF amoxicillin-pot clavulanate 875-125 mg tablet 1 tab PO BID Qty: 14 0RF Continued levothyroxine 50 mcg tablet 50 mcg PO QAM aspirin 81 mg tablet,delayed release (DR/EC) 81 mg PO QAM morphine concentrate 100 mg/5 mL (20 mg/mL) Solution See Rx Instructions .ROUTE .COMPLEX PRN (Reason: Pain) Rx Instructions: Give 0.5ml sublingual every 4 hours as needed if unable to swallow other oral pain medications. ondansetron HCl 4 mg tablet 4 mg PO Q4H PRN (Reason: Nausea And Vomiting) oxycodone-acetaminophen 5-325 mg tablet 1 - 2 tab PO Q6H PRN (Reason: Pain) Debrox 6.5 % Drops 4 drp OTIC (EAR) BID albuterol sulfate 2.5 mg /3 mL (0.083 %) solution for nebulization 2.5 mg inhalation Q4H PRN (Reason: sob) omeprazole 20 mg capsule,delayed release(DR/EC) 20 mg PO QAM acetaminophen 325 mg Tablet 650 mg PO Q6H PRN (Reason: FOR FEVER) magnesium hydroxide [Milk of Magnesia] 400 mg/5 mL Suspension 30 ml PO DAILY PRN (Reason: Constipation) bisacodyl [Dulcolax (bisacodyl)] 10 mg Suppository 10 mg VT DAILY PRN (Reason: Constipation) Fleet Enema 19-7 gram/118 mL Enema 118 ml VT DAILY PRN (Reason: Constipation) Biofreeze (menthol) 4 % Gel 1 applic TOPICAL QID PRN (Reason: PAIN OR MUSCLE SPASMS) Discharge Orders: Discharge Order (Routine); Ordered 05/24/24 Ordered By: Mitali Hilton Referrals: Jarad Moreno MD [Physician] - 2 weeks (We have notified your physician's clinic of the need for a follow-up appointment to be scheduled. If you have not heard from them within the next 2 business days, please call them directly. ) Tam Farah DO [Primary Care Provider] - 4-7 days Discharge Diet: As Directed Discharge Activity: Resume usual activity and As per PT/OT instructions Patient Instructions: Amoxicillin/Clavulanate Potassium (By mouth), Atorvastatin (By mouth), Stroke (GEN), Stroke Stoplight Discharge Attestations Time Spent in Discharge Care*: greater than 30 min Status at Discharge: Cognitive status at discharge: cognitively intact , Behavioral status at discharge: cooperative , Quality Metrics Clinical Quality Measures [ No reported AMI, CVA or VTE this stay] Coding Level of Care Code Acute Code for Chg Fwd Diagnoses CVA (cerebral vascular accident) I63.9 CVA mechanism: unspecified Aspiration pneumonia J69.0
--- NOTE | 2024-05-24 13:45 | PC.NURSE ---
Called Report to Dedra Younger LPN at [facility]. Dedra asked that we leave the catheter in so they could do a voiding trial their. Dr. Hilton notified and orders given to leave the lopez in place.
== END 2024-05-24 14:41 | disposition intermediate care facility (04) | DRG 64 ==
LOC: ER 18:19 → MEDSURG 19:09
PROVIDERS: Admitting Provider Student in an Organized Health Care Education/Training Program; Emergency Provider Emergency Medicine; PCP Internal Medicine; Visit Provider Internal Medicine
DX: I63.9 Cerebral infarction, unspecified (principal); G93.41 Metabolic encephalopathy; J69.0 Pneumonitis due to inhalation of food and vomit; R29.810 Facial weakness; R26.89 Other abnormalities of gait and mobility; Z91.81 History of falling; R47.1 Dysarthria and anarthria; G30.9 Alzheimer's disease, unspecified; F02.80 Dementia in other diseases classified elsewhere, unspecified severity, without behavioral disturbance, psychotic disturbance, mood disturbance, and anxiety; N18.9 Chronic kidney disease, unspecified; I25.10 Atherosclerotic heart disease of native coronary artery without angina pectoris; K21.9 Gastro-esophageal reflux disease without esophagitis; Z95.5 Presence of coronary angioplasty implant and graft; Z79.82 Long term (current) use of aspirin
CPT/HCPCS: 36415; 36416; 51702; 70450; 71045; 80048; 80053; 80061; 80306; 80307; 81001; 82962; 83036; 83735; 84443; 84484; 85025; 85610; 85730; 86140; 87426; 92523; 92610; 93005; 93880; 94640; 96374; 97161; 97167; 99285; G0378; J0360; J2270; J2543; J7070; J7613

== ENCOUNTER 2024-07-22 16:17 | Inpatient (IN) | payer MEDICARE, OTHER, SELFPAY ==
[2024-07-22] VITALS (64 sets, daily range): BP systolic 134–208; BP diastolic 70–124; PULSE 65–119; RESP 10–35; TEMP 36.5–39.1; O2SAT 93–100; BMI 15.5; BMI 18.2
--- NOTE | 2024-07-22 16:22 | XRR_ITS ---
PROCEDURE INFORMATION: Exam: XR Chest Exam date and time: 07/22/2024 4:39 PM Age: 89 years old Clinical indication: Shortness of breath TECHNIQUE: Imaging protocol: Radiologic exam of the chest. Views: 1 view. COMPARISON: CR XR chest 1V portable [id number] 05/20/2024 4:07 PM FINDINGS: Lungs: Small patchy infiltrate in the right base is again seen. Left lung is now clear. Pleural spaces: There are small bilateral pleural effusions. Heart/Mediastinum: Unremarkable. No cardiomegaly. Bones/joints: Unremarkable. XR/XR chest 1V portable [id number] IMPRESSION: 1. There are small bilateral pleural effusions. 2. Small patchy infiltrate in the right base is again seen. Left lung is now clear.
--- NOTE | 2024-07-22 16:25 | W.ED.SOB ---
HPI - SOB/Dyspnea General: Chief Complaint: Shortness of Breath/Dyspnea Stated Complaint: sob Time Seen by Provider: 07/22/24 16:23 History of Present Illness: HPI Narrative: 89-year-old man with a history of hypothyroidism, chronic kidney disease, hypertension, coronary artery disease, hyperlipidemia, GERD, carotid artery disease, and a history of stroke and reports of history of aspiration in the past who presents to the emergency room in respiratory distress/respiratory failure. [facility] EMS reports that he is DNR CODE STATUS. They report he was quite hypoxemic and they placed him on 4 L nasal cannula without much success and so they placed him on a CPAP. Oxygen saturations have come up some. However he is still working very hard to breathe at this point. Related Data Home Medications Medication Instructions Recorded Confirmed levothyroxine 50 mcg tablet 50 mcg PO QAM 09/13/19 07/22/24 acetaminophen 325 mg tablet 650 mg PO Q6H PRN FOR FEVER 02/29/24 07/22/24 albuterol sulfate 2.5 mg/3 mL 2.5 mg inhalation Q4H PRN sob 02/29/24 07/22/24 (0.083 %) solution for nebulization bisacodyl 10 mg rectal suppository 10 mg KS DAILY PRN Constipation 02/29/24 07/22/24 (Dulcolax (bisacodyl)) magnesium hydroxide 400 mg/5 mL 30 ml PO DAILY PRN Constipation 02/29/24 07/22/24 oral suspension (Milk of Magnesia) menthol 4 % topical gel (Biofreeze 1 applic topical QID PRN PAIN OR 02/29/24 07/22/24 (menthol)) MUSCLE SPASMS omeprazole 20 mg capsule,delayed 20 mg PO QAM 02/29/24 07/22/24 release sodium phosphates 19 gram-7 118 ml KS DAILY PRN Constipation 02/29/24 07/22/24 gram/118 mL enema (Fleet Enema) morphine concentrate 100 mg/5 mL See Rx Instructions .Route 05/20/24 07/22/24 (20 mg/mL) oral solution .COMPLEX PRN Pain ondansetron HCl 4 mg tablet 4 mg PO Q4H PRN Nausea And Vomiting 05/20/24 07/22/24 oxycodone-acetaminophen 5 mg-325 1 - 2 tab PO Q6H PRN Pain 05/20/24 07/22/24 mg tablet Allergies Allergy/AdvReac Type Severity Reaction Status Date / Time amlodipine Allergy pedal edema Verified 03/10/24 14:54 ciprofloxacin [From Cipro] Allergy Unknown Verified 03/10/24 14:54 hydralazine AdvReac ADR-Headach Verified 03/10/24 14:54 e Review of Systems General: Reports: ROS unobtainable due to medical condition PFSH ED PFSH: Medical History Hypothyroidism Chronic kidney disease (CKD) Abnormal nuclear stress test Hypertension Coronary artery disease Hyperlipidemia CVA (cerebral vascular accident) GERD (gastroesophageal reflux disease) Bilateral carotid artery stenosis Osteoarthritis Urolithiasis BPH (benign prostatic hyperplasia) Neurodegenerative gait disorder Sacroiliitis Chronic migraine without aura, intractable, with status migrainosus Surgical History History of heart artery stent x8 H/O lithotripsy Family History Father , AT AGE 72 CAD (coronary artery disease) Stroke Mother , AT AGE 78 CAD (coronary artery disease) Other Hyperlipidemia Hypertension Denies family history of Diabetes Clotting disorder Dementia Chronic kidney disease (CKD) Anesthesia complication Bleeding disorder Lung disease Cancer Social History Smoking and tobacco/nicotine status: never used tobacco/nicotine Alcohol intake: never Substance/Drug Use: never Additional social history: Girlfriend lives with him Adopted: No Caregiver/support person: No Lives independently: Yes Marital status: / Current occupational status: retired Physical Exam Narrative: EXAM NARRATIVE: General: Alert, moderate distress. Skin: Warm, dry. Head: Normocephalic, atraumatic. Neck: Supple, trachea midline. Eye: Extraocular movements are intact. Ears, nose, mouth and throat: Tacky oral mucosa Cardiovascular: Regular rate and rhythm, Normal peripheral perfusion. Respiratory: coarse, scattered wheeze, moderate increased wob. tachypnea, prolonged expiratory phase. breath sounds are equal, Symmetrical chest wall expansion. Gastrointestinal: Soft, Nontender, Non distended, Normal bowel sounds. Musculoskeletal: Normal ROM, no deformity. Neurological: Alert appears in acute distress. Initially he is quite somnolent and difficult to evaluate. Psychiatric: Unable to assess Course Vital Signs: Vital signs: Vital Signs Temperature 97.7 F 07/22/24 20:01 Pulse Rate 89 07/22/24 19:50 Respiratory Rate 32 H 07/22/24 19:50 Blood Pressure 161/95 07/22/24 19:50 Pulse Oximetry 99 07/22/24 19:50 Oxygen Delivery Me thod Room Air 07/22/24 19:30 Fraction of Inspir ed Oxygen 70 07/22/24 16:41 MDM - SOB/Dyspnea Medical Decision Making Differential diagnosis for patient with shortness of breath includes but is not limited to and based on the above HPI, review of systems and physical exam: Pneumonia. Bronchitis. Asthma or COPD with acute exacerbation. Acute coronary syndrome / OH. Pulmonary embolism. Anxiety. Congestive heart failure. Viral infections including influenza and Covid-19. Atrial fibrillation. Anxiety. Pleural effusion. Pneumothorax. Orders placed to evaluate differential diagnosis based on the above differential, HPI and physical exam AB.3 on 60 % FiO2 Chest x-ray: Mild bilateral pleural effusions. Patchy infiltrate in the right base is seen again. I think this looks worse. I think he may have aspirated. This was reviewed and interpreted by myself the emergency room physician. I also reviewed the radiology report. EKG: Time 1850. Rate 94. Normal sinus rhythm, No ST-T changes, no ectopy, right bundle branch block, This was reviewed and interpreted by myself the ER physician at 1855 Lab Review: Laboratory results were reviewed and interpreted by myself the emergency room physician. Leukocytosis with a white count of 13.5. No anemia. BUN and creatinine are at or around his baseline at 42 and 1.6. Lactate is very elevated at 6.4. Troponin is slightly elevated at 101. I reviewed the patient's medical record. Reexamination: Patient appears quite a bit improved after being on BiPAP for a while. He is now much more alert. Consultation: I spoke with Dr. Hilton who is on-call for the hospitalist service who agrees to admission to the ICU. Assessment and plan: Hypoxemic respiratory failure Sepsis Pneumonia Metabolic encephalopathy Sepsis Worsening heart failure - 1 L normal saline bolus. Blood pressure has been normal to elevated. Heart rate was slightly elevated initially. His proBNP is now greater than 70,000 so I have concern about worsening heart failure and giving more fluids in this. -Broad-spectrum antibiotics were administered. Meropenem and Zyvox. -Sepsis quality measures. -Lactic acid with a reflex was ordered. -Blood cultures were ordered. ?Solu-Medrol, broad-spectrum antibiotics, breathing treatments, BiPAP, limited fluids because of CHF. -I discussed the patient with the hospitalist on-call who is admitting the patient. - Discussed findings and plan with patient. Answered any questions. - All laboratory values were reviewed and interpreted personally by myself, the ER physician - All imaging was reviewed and interpreted personally by myself, the ER physician. - Evaluation and treatment of this problem were appropriate in the emergency setting Critical care -I spent a total of >35 minutes of critical care time managing the patient, independent of any other practitioner. -The time involved in the performance of separately reportable procedures was not counted towards critical care time. Lab Data 07/22/24 16:30 07/22/24 16:30 Labs/Radiology: Radiology Impressions Chest X-Ray 07/22/24 16:22 IMPRESSION: 1. There are small bilateral pleural effusions. 2. Small patchy infiltrate in the right base is again seen. Left lung is now clear. Laboratory Results WBC 13.50 10^3/uL (3.29-11.43) H 07/22/24 16:30 RBC 5.14 10^6/uL (3.85-5.65) 07/22/24 16:30 Hgb 14.10 g/dL (11.27-16.99) 07/22/24 16:30 Hct 46.9 % (37-53) 07/22/24 16:30 MCV 91.2 fl (82-101) 07/22/24 16:30 MCH 27.4 pg (27-33) 07/22/24 16:30 MCHC 30.1 g/dL (30-55) 07/22/24 16:30 RDW 16.2 % (12.1-15.1) H 07/22/24 16:30 Plt Count 220 10^3/cmm (157-399) 07/22/24 16:30 MPV 11.8 fL (7.4-10.4) H 07/22/24 16:30 Neut % (Auto) 88.6 % 07/22/24 16:30 Lymph % (Auto) 4.4 % 07/22/24 16:30 [place] % (Auto) 6.4 % 07/22/24 16:30 Eos % (Auto) 0.0 % 07/22/24 16:30 Baso % (Auto) 0.2 % 07/22/24 16:30 Neut # (Auto) 11.95 10^3/uL (1.8-7.7) H 07/22/24 16:30 Lymph # (Auto) 0.6 10^3/uL (0.8-4.8) L 07/22/24 16:30 [place] # (Auto) 0.9 10^3/uL (0.2-0.9) 07/22/24 16:30 Eos # (Auto) 0.0 10^3/uL (0.0-0.8) 07/22/24 16:30 Baso # (Auto) 0.0 10^3/uL (0.0-0.1) 07/22/24 16:30 Nucleated RBC % (auto) 0.1 % 07/22/24 16:30 Nucleated RBCs # 0.0 /100WBC 07/22/24 16:30 Specimen Type Arterial 07/22/24 16:19 Sample Site Radial, left 07/22/24 16:19 ABG pH 7.35 (7.35-7.45) 07/22/24 16:19 ABG pCO2 42.6 mmHg (35-45) 07/22/24 16:19 ABG pO2 77.9 mmHg (80.0-100.0) L 07/22/24 16:19 ABG PO2/FiO2 Ratio 129 07/22/24 16:19 ABG HCO3 23.7 mmol/L (22-26) 07/22/24 16:19 ABG O2 Saturation 94.0 07/22/24 16:19 ABG Base Excess -1.9 mmol/L (-2.0-2.0) 07/22/24 16:19 Martin Test Pos 07/22/24 16:19 A-a O2 Gradient 37.8 mmHg (5-10) H 07/22/24 16:19 Hematocrit 44.1 % (42-52) 07/22/24 16:19 Hgb O2 Saturation 91.9 % (95-100) L 07/22/24 16:19 Carboxyhemoglobin 1.1 %THgb (0.4-20.1) 07/22/24 16:19 Methemoglobin 1.0 % (0.4-1.5) 07/22/24 16:19 Total Hemoglobin 14.4 g/dL (14-18) 07/22/24 16:19 Sodium 158.0 mmol/L (131-143) H 07/22/24 16:19 Potassium 4.5 mmol/L (3.5-5.0) 07/22/24 16:19 Glucose 190.0 mg/dL (70-115) H 07/22/24 16:19 Ionized Calcium 1.3 mmol/L (1.1-1.4) 07/22/24 16:19 O2 Delivery Device Bipap 07/22/24 16:19 FiO2 60.0 % 07/22/24 16:19 Field Map Editor ID Cak 07/22/24 16:19 Sodium 152 mmol/L (136-145) H 07/22/24 16:30 Potassium 5.2 mmol/L (3.5-5.1) H 07/22/24 16:30 Chloride 111 mmol/L (98-107) H 07/22/24 16:30 Carbon Dioxide 22 mmol/L (22-29) 07/22/24 16:30 Anion Gap 24.2 (5-19) H 07/22/24 16:30 BUN 42 mg/dL (8-23) H 07/22/24 16:30 Creatinine 1.6 mg/dL (0.7-1.2) H 07/22/24 16:30 GFR Calculation Not Reportable 07/22/24 16:30 Glucose 187 mg/dL (65-115) H 07/22/24 16:30 Calculated Osmolality 329 mOsm/kg (285-295) H 07/22/24 16:30 Lactic Acid 6.4 mmol/L (0.5-2.2) H* 07/22/24 16:30 Calcium 9.5 mg/dL (8.5-10.5) 07/22/24 16:30 Total Bilirubin 0.9 mg/dL (0.15-1.2) 07/22/24 16:30 AST 57 U/L (0-40) H 07/22/24 16:30 ALT 33 U/L (0-41) 07/22/24 16:30 Alkaline Phosphatase 166 U/L (40-130) H 07/22/24 16:30 Troponin T Baseline 101 ng/L (0-15) H* 07/22/24 16:30 C-Reactive Protein 113.7 mg/L (0.0-4.9) H 07/22/24 16:30 NT-Pro-B Natriuret Pep > 87416 pg/mL (0-450) H 07/22/24 16:30 Total Protein 8.4 g/dL (6.6-8.7) 07/22/24 16:30 Albumin 3.5 g/dL (3.5-5.2) 07/22/24 16:30 Globulin 4.9 g/dL (1.3-4.6) H 07/22/24 16:30 Adenovirus (PCR) Not detected (NOT DETECT) 07/22/24 17: C. pneumoniae DNA (PCR) Not detected (NOT DETECT) 07/22/24 17: Coronavirus 229E (PCR) Not detected (NOT DETECT) 07/22/24 17: Human Metapneumovir PCR Not detected (NOT DETECT) 07/22/24: Influenza A (H1) PCR Not detected (NOT DETECT) 07/22/24: Influ A (H1/09) PCR Not detected (NOT DETECT) 07/22/24: Influenza A (H3) PCR Not detected (NOT DETECT) 07/22/24 17: Influenza Type A (PCR) Not detected (NOT DETECT) 07/22/24 17: Influenza Type B (PCR) Not detected (NOT DETECT) 07/22/24: M. pneumoniae (PCR) Not detected (NOT DETECT) 07/22/24: Parainfluenza 1 (PCR) Not detected (NOT DETECT) 07/22/24: Parainfluenza 2 (PCR) Not detected (NOT DETECT) 07/22/24: Parainfluenza 3 (PCR) Not detected (NOT DETECT) 07/22/24: Parainfluenza 4 (PCR) Not detected (NOT DETECT) 07/22/24 17:26 RSV Type A (PCR) Not detected (NOT DETECT) 07/22/24 17:26 RSV Type B (PCR) Not detected (NOT DETECT) 07/22/24 17:26 Entero/Rhino (PCR) Not detected (NOT DETECT) 07/22/24 17:26 SARS-CoV-2 (PCR) Not detected (NOT DETECT) 07/22/24 17:26 All radiology interpretation(s) finalized by discharge Discharge Plan Discharge Patient Disposition: Admitted As Inpatient Admit Provider: Mitali Hilton Clinical Impression: Sepsis, Acute hypoxemic respiratory failure, Congestive heart failure, Pneumonia, Acute hypernatremia Condition: Stable Coding Level of Care Code ED Pelt Grader for Rah Carter
--- NOTE | 2024-07-22 16:28 | ECG_ITS ---
[facility] Date: 2024-07[facility]22 Pat Name: Des Fuller Department: Room: Gender: Male Roller Inspector And Mender: : 1935 Requested By: Rita Walden Order Number: [id number] Mar MD: KAROL HANLEY Measurements Intervals [place] Rate: 109 P: 17 WI: 107 QRS: 80 QRSD: 125 T: 26 QT: 361 QTc: 487 Interpretive Statements SINUS TACHYCARDIA WITH SHORT WI INTERVAL RIGHT BUNDLE BRANCH BLOCK [120+ ms QRS DURATION, UPRIGHT V1, 40+ ms S IN I/aVL/V4/V5/V6] Compared to ECG 05/20/2024 21:16:43 No significant changes Electronically Signed On 07-22-2024 23:19:37 BUTCHER OR SMALLGOODS MAKER by KAROL HANLEY [id number]
[2024-07-22 16:31] LABS: ABG PCO2 42.6 mmHg (35-45); ABG PH Result 7.35 (7.35-7.45); Alveolar-Arterial Oxygen Gradi 37.8 mmHg (5-10); Arterial Blood Gas Hematocrit 44.1 % (42-52); Base Excess ABG -1.9 mmol/L (-2.0-2.0); Blood Gas Allen Test Pos; Blood Gas Operator Identificat CAK; Blood Gas Sample Site Radial, left; Blood Gas Sample Type Arterial; Carboxyhemoglobin 1.1 %THgb (0.4-20.1); HCO3 ABG 23.7 mmol/L (22-26); HGB O2 Sat 91.9 % (95-100); Ionized Calcium Level - ABG 1.3 mmol/L (1.1-1.4); Oxygen Device BIPAP; PO2 ABG 77.9 mmHg (80.0-100.0); PO2 FiO2 Ratio Arterial Blood 129; Potassium Level - ABG 4.5 mmol/L (3.5-5.0); Total Hemoglobin 14.4 g/dL (14-18)
[2024-07-22] MEDS: albuterol 2.5 mg/3 mL Neb INHALATION (16:37)
[2024-07-22] MEDS: ipratropium-albuterol 3 mL Neb INHALATION (16:37)
[2024-07-22] MEDS: methylPREDNISolone sod succ 125 mg/2 mL INJ IVP (16:40)
[2024-07-22] MEDS: acetaminophen 1,000 MG/100 ML PIGGYBACK 400 MG IV (16:44)
[2024-07-22] MEDS: cefepime 2,000 mg SDV 2000 MG IVP (16:44)
[2024-07-22 16:48] LABS: Basophils % 0.2 %; Hematocrit 46.9 % (37-53); Lymphocytes # 0.6 10^3/uL (0.8-4.8); Lymphocytes % 4.4 %; Mean Corpuscular HGB Conc 30.1 g/dL (30-55); Mean Corpuscular Hemoglobin 27.4 pg (27-33); Mean Corpuscular Volume 91.2 fl (82-101); Mean Platelet Volume 11.8 fL (7.4-10.4); Monocytes # 0.9 10^3/uL (0.2-0.9); Monocytes % 6.4 %; Neutrophils # 11.95 10^3/uL (1.8-7.7); Neutrophils % 88.6 %; Nucleated Red Blood Cells % 0.1 %; Platelet Count 220 10^3/cmm (157-399); Red Blood Count 5.14 10^6/uL (3.85-5.65); Red Cell Distribution Width 16.2 % (12.1-15.1)
[2024-07-22] MEDS: linezolid premix 600 MG/300 ML PREMIX 300 MG IV (16:48)
[2024-07-22 17:16] LABS: Albumin Level 3.5 g/dL (3.5-5.2); Alkaline Phosphatase 166 U/L (40-130); Blood Urea Nitrogen 42 mg/dL (8-23); Calcium 9.5 mg/dL (8.5-10.5); Carbon Dioxide 22 mmol/L (22-29); Chloride 111 mmol/L (98-107); Creatinine Clr Calc Pharmacy 21.9117; Globulin 4.9 g/dL (1.3-4.6); Glucose 187 mg/dL (65-115); Osmolality Calculated 329 mOsm/kg (285-295); Sodium 152 mmol/L (136-145); Total Bilirubin 0.9 mg/dL (0.15-1.2); Total Protein 8.4 g/dL (6.6-8.7)
[2024-07-22 17:19] LABS: Alanine Aminotransferase 33 U/L (0-41); Anion Gap 24.2 (5-19); Aspartate Amino Transferase 57 U/L (0-40); Potassium 5.2 mmol/L (3.5-5.1)
[2024-07-22 17:25] LABS: Lactic Sepsis W/Reflex 6.4 mmol/L (0.5-2.2)
[2024-07-22] MEDS: sodium chloride 0.9% 1,000 ML 999 ML IV ×2 (17:52)
[2024-07-22 17:58] LABS: NT Pro B Type Natriuretic Pept > 70000 pg/mL (0-450)
--- NOTE | 2024-07-22 18:31 | ECG_ITS ---
[employer] [facility] Test Date: 2024-07-22 Pat Name: Des Fuller Department: Room: Gender: Male L Tacker: : 1935 Requested By: Rita Walden Order Number: [id number] Mar MD: KAROL HANLEY Measurements Intervals [place] Rate: 94 P: 45 NE: 138 QRS: 67 QRSD: 125 T: 27 QT: 405 QTc: 509 Interpretive Statements SINUS RHYTHM WITH OCCASIONAL SUPRAVENTRICULAR PREMATURE COMPLEXES RIGHT BUNDLE BRANCH BLOCK [120+ ms QRS DURATION, UPRIGHT V1, 40+ ms S IN I/aVL/V4/V5/V6] Compared to ECG 07/22/2024 16:29:35 Sinus tachycardia no longer present Short NE interval no longer present Electronically Signed On 07-22-2024 23:18:51 SCOURING MACHINE TENDER by KAROL HANLEY [id number]
[2024-07-22 18:34] LABS: Reflex Lactate Order REFLEX LACTIC ORDERD
--- NOTE | 2024-07-22 19:28 | PM.HP ---
Providers/Chief Complaint Primary Care Provider: Tam Farah DO Chief Complaint: sob History of Present Illness Des Fuller is a 89 year old male with a past medical history significant for chronic hypoxic respiratory failure stroke with dysphagia, coronary artery disease, hypertension, Alzheimer's dementia, hypothyroidism, benign prostatic hypertrophy, and multiple other comorbidities who presents to the emergency department with respiratory distress. Upon assessment, patient has a somewhat poverty of words and is requiring BiPAP. Family, daughter, is bedside and supportive. She helps provide collateral information. She reports patient's been ill for nearly a week. She states initially it started as decreased mentation and increased sleep throughout the day. She noted that he was weak throughout the day which is progressively worsened over the past week. His respiratory status reportedly declined today for which EMS was called. Per EMS report, he was found to be in respiratory distress. He was placed on his CPAP with improvement in respiratory status. In the emergency department, patient was found to require BiPAP. Labs revealed leukocytosis, hyponatremia, hyperkalemia and multiple other metabolic derangements. Chest x-ray revealed small bilateral pleural effusions and small patchy infiltrate in right base. Daughter does note history of dysphagia which she states has been an issue at the nursing facility. She states that he is on thickened liquids but there is been poor oral intake. She notes that in the past week it has been exceptionally poor. Review of Systems Narrative: A complete review of systems was obtained and is negative except as stated in HPI. Medications/Allergies Home Medications Medication Instructions Recorded Confirmed Last Taken Type levothyroxine 50 mcg tablet 50 mcg PO QAM 09/13/19 07/22/24 07/22/24 History acetaminophen 325 mg tablet 650 mg PO Q6H PRN FOR FEVER 02/29/24 07/22/24 07/12/24 History albuterol sulfate 2.5 mg/3 mL 2.5 mg inhalation Q4H PRN sob 02/29/24 07/22/24 07/22/24 History (0.083 %) solution for nebulization bisacodyl 10 mg rectal suppository 10 mg [place] DAILY PRN Constipation 02/29/24 07/22/24 Unknown History (Dulcolax (bisacodyl)) magnesium hydroxide 400 mg/5 mL 30 ml PO DAILY PRN Constipation 02/29/24 07/22/24 07/11/24 History oral suspension (Milk of Magnesia) menthol 4 % topical gel (Biofreeze 1 applic topical QID PRN PAIN OR 02/29/24 07/22/24 Unknown History (menthol)) MUSCLE SPASMS omeprazole 20 mg capsule,delayed 20 mg PO QAM 02/29/24 07/22/24 07/22/24 History release sodium phosphates 19 gram-7 118 ml GA DAILY PRN Constipation 02/29/24 07/22/24 Unknown History gram/118 mL enema (Fleet Enema) morphine concentrate 100 mg/5 mL See Rx Instructions .Route 05/20/24 07/22/24 Unknown History (20 mg/mL) oral solution .COMPLEX PRN Pain ondansetron HCl 4 mg tablet 4 mg PO Q4H PRN Nausea And Vomiting 05/20/24 07/22/24 Unknown History oxycodone-acetaminophen 5 mg-325 1 - 2 tab PO Q6H PRN Pain 05/20/24 07/22/24 07/22/24 History mg tablet Allergies Allergy/AdvReac Type Severity Reaction Status Date / Time amlodipine Allergy pedal edema Verified 03/10/24 14:54 ciprofloxacin [From Cipro] Allergy Unknown Verified 03/10/24 14:54 hydralazine AdvReac ADR-Headach Verified 03/10/24 14:54 e PFSH Acute PFSH: Medical History Hypothyroidism Chronic kidney disease (CKD) Abnormal nuclear stress test Hypertension Coronary artery disease Hyperlipidemia CVA (cerebral vascular accident) GERD (gastroesophageal reflux disease) Bilateral carotid artery stenosis Osteoarthritis Urolithiasis BPH (benign prostatic hyperplasia) Neurodegenerative gait disorder Sacroiliitis Chronic migraine without aura, intractable, with status migrainosus Surgical History History of heart artery stent x8 H/O lithotripsy Family History Father , AT AGE 72 CAD (coronary artery disease) Stroke Mother , AT AGE 78 CAD (coronary artery disease) Other Hyperlipidemia Hypertension Denies family history of Diabetes Clotting disorder Dementia Chronic kidney disease (CKD) Anesthesia complication Bleeding disorder Lung disease Cancer Social History Smoking and tobacco/nicotine status: never used tobacco/nicotine Alcohol intake: never Substance/Drug Use: never Additional social history: Girlfriend lives with him Adopted: No Caregiver/support person: No Lives independently: Yes Marital status: / Current occupational status: retired Vitals/I&O/Wt Last Vital Signs Temp 102.3 F H 07/22/24 16:19 Pulse 96 07/22/24 17:53 Resp 28 H 07/22/24 16:35 BP 170/90 07/22/24 17:53 Pulse Ox 99 07/22/24 17:53 O2 Del Method BiPAP 07/22/24 17:53 FiO2 70 07/22/24 16:41 Weight last 48 hrs Weight 47.627 kg Physical Exam Narrative: General: Patient is awake. Frail-appearing. Acutely ill-appearing. On BiPAP. Poverty of words. Head: Normocephalic. Atraumatic. EOM intact. Temporal wasting. Dry mucous membranes. Neck: No JVD. Cardiovascular: RRR. No gallops. No murmurs. No peripheral edema. Lungs: Tachypneic. Increased work of breathing. Right basilar rhonchi. Accessory muscle use. On BiPAP. Skin: No jaundice. No rashes. Abdomen: Hypoactive bowel sounds, abdomen soft and nontender. Genito Urinary: Genital exam not performed since complaints not related. Rectal: Rectal exam not performed since no symptoms indicated blood loss. Extremities: No cyanosis or clubbing. Musculoskeletal: No swollen or erythematous joints. Neurological: Moves all 4 extremities. No myoclonus. Data 07/22/24 16:30 07/22/24 16:30 Micro: Microbiology 07/22/24 17:42 Blood Culture - Preliminary Blood SPECIMEN COLLECTED 07/22/24 17:40 Blood Culture - Preliminary Blood SPECIMEN COLLECTED A&P Assessment and plan (1) Sepsis: Severe sepsis secondary to commune acquired pneumonia Lactic acidosis SIRS: Leukocytosis, tachypnea, tachycardia Source: Pneumonia Endorgan damage: Respiratory failure Blood cultures, sputum culture Start broad-spectrum antibiotics with cefepime and linezolid MRSA screening ordered Check inflammatory markers Telemetry monitoring Strict I's and O's Supportive care (2) Pneumonia: Right basilar community-acquired pneumonia, suspected aspiration with acute on chronic hypoxic respiratory failure N.p.o. for now due to high aspiration risk Speech therapy consultation requested Management underlying pneumonia as listed above (3) Acute hypernatremia: Acute hyponatremia with sodium of 152 Free water deficit of 2.1 L Start D5W infusion Trend sodium to avoid overcorrection (4) Hyperkalemia: Status post IV fluids Trend level Telemetry (5) Alzheimer disease: Alzheimer's dementia, mentation currently not at baseline suspect component of acute metabolic encephalopathy Treat underlying sepsis Optimize metabolic status Monitor mentation (6) CVA (cerebral vascular accident): History of stroke with dysphagia Patient reportedly on modified diet but still having difficulties prior to admission Will plan for speech therapy consultation Qualifiers: CVA mechanism: unspecified Qualified Code(s): I63.9 - Cerebral infarction, unspecified (7) Hypothyroidism: Continue Synthroid (8) Chronic kidney disease (CKD): Renally dose medications Avoid nephrotoxins Plan DVT prophylaxis: Heparin CODE STATUS: DNR Attestations Medical Necessity Statement*: Patient presents with respiratory distress, found to have sepsis with acute on chronic respiratory failure secondary to pneumonia with expected hospitalization to cross 2 midnights for blood cultures, IV antibiotics, management of underlying metabolic conditions, and supportive care. Coding Level of Care Code [facility] Diagn[facility] Sepsis A41.9 Pneumonia J18.9 Acute hypernatremia E87.0 Hyperkalemia E87.5 Alzheimer disease G30.9; F02.80 CVA (cerebral vascular accident) I63.9 CVA mechanism: unspecified Hypothyroidism E03.9 Chronic kidney disease (CKD) N18.9
[2024-07-22 19:37] LABS: Adenovirus Not Detected (NOT DETECT); Chlamydia Pneumoniae Not Detected (NOT DETECT); Coronavirus 229E,HKU1,NL63,OC4 Not Detected (NOT DETECT); Human Metapneumovirus Not Detected (NOT DETECT); Human Rhinovirus/Enterovirus Not Detected (NOT DETECT); Influenza A Not Detected (NOT DETECT); Influenza A H1 Not Detected (NOT DETECT); Influenza A H1-2009 Not Detected (NOT DETECT); Influenza A H3 Not Detected (NOT DETECT); Influenza B Not Detected (NOT DETECT); Mycoplasma Pneumoniae Not Detected (NOT DETECT); Parainfluenza Virus Type 1 Not Detected (NOT DETECT); Parainfluenza Virus Type 2 Not Detected (NOT DETECT); Parainfluenza Virus Type 3 Not Detected (NOT DETECT); Parainfluenza Virus Type 4 Not Detected (NOT DETECT); Respiratory Syncytial Virus A Not Detected (NOT DETECT); Respiratory Syncytial Virus B Not Detected (NOT DETECT); SARS-COV-2 Not Detected (NOT DETECT)
[2024-07-22 19:56] LABS: Troponin 5 2HR 96.62 ng/L (0-15)
[2024-07-22 19:57] LABS: Lactic Acid level (Lactate) 3.9 mmol/L (0.5-2.2)
[2024-07-22 20:02] LABS: Troponin(5th) Baseline 101 ng/L (0-15)
[2024-07-22 20:02] LABS: Troponin 5 2HR Delta -4.38 ABS# (0-10)
[2024-07-22 20:10] LABS: C Reactive Protein 113.7 mg/L (0.0-4.9)
[2024-07-22 21:20] LABS: Procalcitonin 0.78 ng/mL (0-0.5)
[2024-07-22] MEDS: heparin 5,000 unit/mL INJ 1 mL 5000 UNIT SUBCUT (21:28)
[2024-07-22] MEDS: dextrose 5% 1,000 ML 50 ML IV (21:28)
--- NOTE | 2024-07-22 21:30 | PC.NURSE ---
Lopez catheter, D5 Patient noted to have 2+ pitting edema in bilateral lower extremities as well as coarse crackles in bilateral lungs. Dr. Cat contacted and verification received to administer D5 at 50 ml/hr. Additional order received for insertion of lopez catheter.
[2024-07-22 21:50] LABS: Glucose Point of Care 168 mg/dL (70-110)
[2024-07-22] MEDS: budesonide 0.5 mg/2 mL Neb INHALATION (22:34)
--- NOTE | 2024-07-22 22:39 | ECG_ITS ---
[facility] Date: 2024-[facility]-22 Pat Name: Des Fuller Department: Room: ICU08 Gender: Male Photo Optics Technician: : 1935 Requested By: Rita Walden Order Number: [id number] Mar MD: KAROL HANLEY Measurements Intervals [place] Rate: 77 P: 52 [place]: 135 QRS: 78 QRSD: 129 T: 0 QT: 434 QTc: 493 Interpretive Statements SINUS RHYTHM RIGHT BUNDLE BRANCH BLOCK [120+ ms QRS DURATION, UPRIGHT V1, 40+ ms S IN I/aVL/V4/V5/V6] MODERATE T-WAVE ABNORMALITY, CONSIDER LATERAL ISCHEMIA [-0.1+ mV T-WAVE IN I/aVL/V5/V6] Compared to ECG 07/22/2024 18:50:13 T-wave abnormality now present Possible ischemia now present Electronically Signed On 07-22-2024 23:31:11 SVP MONETIZATION by KAROL HANLEY [id number]
[2024-07-22 22:45] LABS: Bilirubin Urine Negative (Negative); Blood Urine Negative (Negative); Glucose Urine UA Negative (Normal); Ketones Urine Negative (Negative); Leukocyte Esterase Urine Negative (Negative); Nitrate Urine Negative (Negative); Protein Urine 2+ (Negative); Specific Gravity, Urine 1.026 (1.005-1.030); Urine Appearance Clear (CLEAR); Urine Color Yellow (Yellow); Urobilinogen Urine 0.2 mg/dL (Negative)
[2024-07-22 22:50] LABS: Add Urine Microscopic? YES; Bacteria Urine None Seen /hpf; Hyaline Casts Urine 11.97 /lpf; RBC Urine 0-2 /hpf (0-2); Squamous Epithelial Cell Urine 0-5 /hpf (0-5); Universal Test for UA Present (0); WBC Urine 0-5 /hpf (0-5)
[2024-07-22 23:01] LABS: Add Urine Culture? No
[2024-07-22 23:20] LABS: MRSA PCR OZH (swab) NOT DETECTED (Negative)
[2024-07-22 23:46] LABS: Anion Gap 18.7 (5-19); Blood Urea Nitrogen 42 mg/dL (8-23); Calcium 9.1 mg/dL (8.5-10.5); Carbon Dioxide 22 mmol/L (22-29); Chloride 115 mmol/L (98-107); Creatinine Clr Calc Pharmacy 25.7639; Glucose 235 mg/dL (65-115); Phosphorus 3.5 mg/dL (2.5-4.5); Potassium 4.7 mmol/L (3.5-5.1); Sodium 151 mmol/L (136-145)
[2024-07-23] VITALS (72 sets, daily range): BP systolic 84–173; BP diastolic 42–123; PULSE 54–95; RESP 0–45; TEMP 36.2–37.1; O2SAT 84–100; BMI 17.9
[2024-07-23] MEDS: morphine 4 mg/mL SDV 1 mL 1 MG IVP ×5 (00:56→22:50)
--- NOTE | 2024-07-23 00:56 | ECG_ITS ---
[facility] Date: 2024-07[facility]23 Pat Name: Des Fuller Department: Room: ICU08 Gender: Male Mental Health Nurse Practitioner: : 1935 Requested By: Rita Walden Order Number: [id number] Mar MD: KAROL HANLEY Measurements Intervals [place] Rate: 79 P: 71 [place]: 136 QRS: 89 QRSD: 129 T: 0 QT: 417 QTc: 479 Interpretive Statements SINUS RHYTHM RIGHT BUNDLE BRANCH BLOCK [120+ ms QRS DURATION, UPRIGHT V1, 40+ ms S IN I/aVL/V4/V5/V6] Compared to ECG 07/22/2024 22:39:52 T-wave abnormality no longer present Possible ischemia no longer present Electronically Signed On 07-25-2024 23:22:19 TRUCK RENTAL SERVICE ATTENDANT by KAROL HANLEY [id number]
[2024-07-23 01:51] LABS: Troponin 5 6HR 81.05 ng/L (0-15)
[2024-07-23 01:52] LABS: Troponin 5 6HR Delta -19.95 ng/L (0-12)
[2024-07-23 05:01] LABS: Basophils # 0.1 10^3/uL (0.0-0.1); Basophils % 0.7 %; Hematocrit 40.5 % (37-53); Lymphocytes # 0.8 10^3/uL (0.8-4.8); Lymphocytes % 5.4 %; Mean Corpuscular HGB Conc 28.6 g/dL (30-55); Mean Corpuscular Hemoglobin 27.6 pg (27-33); Mean Corpuscular Volume 96.2 fl (82-101); Mean Platelet Volume 12.5 fL (7.4-10.4); Monocytes # 0.5 10^3/uL (0.2-0.9); Monocytes % 3.3 %; Neutrophils # 13.68 10^3/uL (1.8-7.7); Neutrophils % 90.3 %; Nucleated Red Blood Cells % 0 %; Platelet Count 156 10^3/cmm (157-399); Red Blood Count 4.21 10^6/uL (3.85-5.65); Red Cell Distribution Width 16.3 % (12.1-15.1); White Blood Count 15.14 10^3/uL (3.29-11.43)
[2024-07-23 05:09] LABS: Glucose Point of Care 250 mg/dL (70-110)
[2024-07-23 05:15] LABS: Alanine Aminotransferase 25 U/L (0-41); Albumin Level 2.7 g/dL (3.5-5.2); Alkaline Phosphatase 107 U/L (40-130); Anion Gap 15.4 (5-19); Aspartate Amino Transferase 32 U/L (0-40); Blood Urea Nitrogen 43 mg/dL (8-23); Calcium 8.8 mg/dL (8.5-10.5); Carbon Dioxide 22 mmol/L (22-29); Chloride 116 mmol/L (98-107); Creatinine Clr Calc Pharmacy 29.4444; Glucose 295 mg/dL (65-115); Magnesium 2.3 mg/dL (1.7-2.3); Osmolality Calculated 330 mOsm/kg (285-295); Phosphorus 3.1 mg/dL (2.5-4.5); Potassium 4.4 mmol/L (3.5-5.1); Sodium 149 mmol/L (136-145); Total Bilirubin 0.8 mg/dL (0.15-1.2); Total Protein 6.7 g/dL (6.6-8.7)
[2024-07-23] MEDS: linezolid premix 600 MG/300 ML PREMIX 300 MG IV ×2 (05:16→16:56)
[2024-07-23] MEDS: insulin lispro 100 unit/1 mL SUBCUT ×3 (05:22→17:08)
--- NOTE | 2024-07-23 05:30 | PC.NURSE ---
Insulin/Respiratory Rate Patient's glucose level [address] Cat notified; order received for low sliding scale insulin lispro Q6H. Additionally, patient's respiratory rate noted to be in the mid 40s with increased work of breathing whenever patient awake. Morphine administered per MAR for pain. No outward sign of anxiety noted. Dr. Cat notified.
[2024-07-23 05:36] LABS: Slide Review Slide Review Perform
[2024-07-23] MEDS: albuterol 2.5 mg/3 mL Neb INHALATION ×2 (07:38→20:16)
[2024-07-23] MEDS: budesonide 0.5 mg/2 mL Neb INHALATION ×2 (07:38→20:16)
[2024-07-23] MEDS: water for injection-sterile 10 ML 10000 ML (08:13)
[2024-07-23] MEDS: heparin 5,000 unit/mL INJ 1 mL 5000 UNIT SUBCUT ×2 (10:04→20:08)
--- NOTE | 2024-07-23 10:46 | PC.NURSE ---
Pt becomes SOB with any intervention or stimulation. Scant amount of BM noted during repositioning.
[2024-07-23 11:39] LABS: Glucose Point of Care 180 mg/dL (70-110)
--- NOTE | 2024-07-23 13:23 | P.PN_ITS ---
Subjective 2 Subjective: Patient has improvement in his respiratory status this morning. He wore BiPAP overnight. He was seen at his bedside oriented to self. Review of systems is limited. Vitals/I&O/Wt Last Vital Signs Temp 97.6 F 07/23/24 05:15 Pulse 84 07/23/24 12:00 Resp 24 H 07/23/24 12:00 BP 150/81 07/23/24 12:00 Pulse Ox 98 07/23/24 12:00 O2 Del Method BiPAP 07/23/24 07:41 FiO2 40 07/23/24 07:41 07/22/24 07/23/24 07/23/24 22:59 06:59 14:59 Intake Total 1000 / 1000 390 / 1390 1710 / 1710 Output Total 425 / 440 Balance 985 / 985 -35 / 950 1710 / 1710 Weight last 48 hrs Weight 55 kg Weight 56 kg Weight 47.627 kg Physical Exam 2 Narrative: General-Awake, lethargic, acutely ill-appearing, patient speaking some words , wearing nasal cannula Head: Normocephalic. Atraumatic. EOM intact. Temporal wasting. Dry mucous membranes. Neck: No JVD. Cardiovascular: RRR. No gallops. No murmurs. No peripheral edema. Lungs: Tachypneic. Increased work of breathing. Right basilar rhonchi. - Improved Skin: No jaundice. No rashes. Abdomen: Hypoactive bowel sounds, abdomen soft and nontender. Genito Urinary: Genital exam not performed since complaints not related. Extremities: No cyanosis or clubbing. Musculoskeletal: No swollen or erythematous joints. Neurological: No gross focal deficits Urinary Catheter Management: Nixon: Cath Placed During This Visit: yes Reason for Continuing Indwelling Catheter: Accurate Measurement of Urinary Output in Critically Ill Patients Urinary Catheter Date of Insertion: 07/22/24 Urinary Catheter Time of Insertion: 21:53 Data 07/23/24 04:43 07/23/24 04:43 Micro: Microbiology 07/22/24 17:42 Blood Culture - Preliminary Blood SPECIMEN COLLECTED 07/22/24 17:40 Blood Culture - Preliminary Blood SPECIMEN COLLECTED A&P Assessment and plan (1) Sepsis: Severe sepsis secondary to community acquired pneumonia Lactic acidosis -Signs of sepsis improving. Lactate trended down -Follow blood and sputum cultures -Patient's blood pressure stable after IV fluids -Continue broad-spectrum antibiotics -Continue the supportive care (2) Pneumonia: # Acute on chronic hypoxic respiratory failure -Right basilar community-acquired pneumonia, suspected aspiration with acute on chronic hypoxic respiratory failure. Patient required BiPAP overnight, he is currently off BiPAP on nasal cannula -N.p.o. for now due to high aspiration risk -Speech therapy consultation requested -Continue broad-spectrum antibiotics -Wean oxygen as tolerated (3) Acute hypernatremia: - sodium of 152 at admission -Sodium downtrending today -Continue free water replacement with D5W -Trend sodium (4) Hyperkalemia: - resolved (5) Alzheimer disease: Alzheimer's dementia, mentation currently not at baseline suspect component of acute metabolic encephalopathy -He is only oriented to self -Continue to monitor patient's mental status (6) CVA (cerebral vascular accident): -History of stroke with dysphagia -Patient reportedly on modified diet but still having difficulties -Swallow evaluation. N.p.o. for now Qualifiers: CVA mechanism: unspecified Qualified Code(s): I63.9 - Cerebral infarction, unspecified (7) Hypothyroidism: Continue Synthroid (8) Chronic kidney disease (CKD): Renally dose medications Avoid nephrotoxins Plan DVT prophylaxis: Heparin CODE STATUS: DNR Attestations 2 Medical Necessity Statement*: Patient requires inpatient care for management of sepsis, pneumonia, hypoxic respiratory failure. Coding Level of Care Code Acute Code for [facility] Diagnoses Sepsis A41.9 Pneumonia J18.9 Acute hypernatremia E87.0 Hyperkalemia E87.5 Alzheimer disease G30.9; F02.80 CVA (cerebral vascular accident) I63.9 CVA mechanism: unspecified Hypothyroidism E03.9 Chronic kidney disease (CKD) N18.9
[2024-07-23] MEDS: cefepime 2,000 mg SDV 2000 MG IVP (16:55)
[2024-07-23] MEDS: water for injection-sterile 10 ML 1000 ML ×2 (16:55→16:57)
[2024-07-23] MEDS: dextrose 5% 1,000 ML 50 ML IV (16:56)
[2024-07-23 17:08] LABS: Glucose Point of Care 164 mg/dL (70-110)
[2024-07-24] VITALS (32 sets, daily range): BP systolic 112–167; BP diastolic 71–106; PULSE 56–85; RESP 3–29; TEMP 36.1–36.8; O2SAT 83–100
[2024-07-24 01:54] LABS: Glucose Point of Care 167 mg/dL (70-110)
[2024-07-24] MEDS: insulin lispro 100 unit/1 mL SUBCUT ×2 (01:58→07:52)
--- NOTE | 2024-07-24 04:25 | PC.NURSE ---
Haris ruiz breathing pattern noted. Patient arouses easily to touch on chest and responds to questions/ commands. Requested RT assistance. Patient placed on bipap.
[2024-07-24] MEDS: linezolid premix 600 MG/300 ML PREMIX 300 MG IV ×2 (04:34→17:05)
[2024-07-24 05:13] LABS: Hematocrit 41.3 % (37-53); Mean Corpuscular HGB Conc 29.8 g/dL (30-55); Mean Corpuscular Hemoglobin 27.3 pg (27-33); Mean Corpuscular Volume 91.6 fl (82-101); Mean Platelet Volume 12.2 fL (7.4-10.4); Platelet Count 163 10^3/cmm (157-399); Red Blood Count 4.51 10^6/uL (3.85-5.65); Red Cell Distribution Width 16.2 % (12.1-15.1); White Blood Count 18.82 10^3/uL (3.29-11.43)
[2024-07-24 05:38] LABS: Albumin Level 2.9 g/dL (3.5-5.2); Anion Gap 14.2 (5-19); Blood Urea Nitrogen 41 mg/dL (8-23); Calcium 9.2 mg/dL (8.5-10.5); Carbon Dioxide 25 mmol/L (22-29); Chloride 109 mmol/L (98-107); Creatinine Clr Calc Pharmacy 31.9925; Glucose 169 mg/dL (65-115); Potassium 4.2 mmol/L (3.5-5.1); Sodium 144 mmol/L (136-145)
[2024-07-24 06:07] LABS: Absolute Neutrophil 17.9 10^3/cmm (1.4-6.5); Absolute Segmented Neutrophil 17.7 10/cmm (1.6-7.1); Band Neutrophils Absolute 0.2 10^3/cmm (0.0-1.2); Eosinophils 0 %; Lymphocytes 2 %; Lymphocytes Absolute 0.8 10^3/cmm (1.2-3.4); Monocytes Absolute 0.4 10^3/cmm (0.1-0.6); Platelet Estimate Normal (Normal); Segmented Neutrophils 94 %; Total Cells Counted 100 (0-100)
[2024-07-24 07:47] LABS: Glucose Point of Care 170 mg/dL (70-110)
[2024-07-24] MEDS: albuterol 2.5 mg/3 mL Neb INHALATION ×2 (07:52→19:56)
[2024-07-24] MEDS: heparin 5,000 unit/mL INJ 1 mL 5000 UNIT SUBCUT ×2 (07:52→21:27)
[2024-07-24] MEDS: budesonide 0.5 mg/2 mL Neb INHALATION ×2 (07:52→19:56)
--- NOTE | 2024-07-24 08:17 | PC.NURSE ---
remains on bipap this am oral care done continues to aspirate with any po ,, respiratory rate beciomes rapid with any stimulation , lung diminished and crackles noted
--- NOTE | 2024-07-24 09:43 | P.PN_ITS ---
Subjective 2 Subjective: Nursing reports that patient is still having a lot of trouble breathing. He states that he does well with the BiPAP on, and then when this is removed he will slowly begin to have more difficulties. Patient reports no pain at this time, but says he is very tired. Nursing also reports he is unable to tolerate oral intake due to aspiration. Nursing waiting on family to come in today to discuss feeding tube or other options. Medications: Reviewed: Yes Vitals/I&O/Wt Last Vital Signs Temp 96.9 F L 07/24/24 08:00 Pulse 61 07/24/24 08:00 Resp 8 L 07/24/24 08:00 BP 112/79 07/24/24 08:00 Pulse Ox 98 07/24/24 08:00 O2 Del Method BiPAP 07/24/24 07:50 O2 Flow Rate 3 07/24/24 02:00 FiO2 30 07/24/24 08:00 07/23/24 07/24/24 07/24/24 22:59 06:59 14:59 Intake Total 816.667 / 2526.667 Output Total 350 / 350 200 / 550 Balance 466.667 / 2176.667 -200 / 1976.667 Weight last 48 hrs Weight 124 lb 8.979 oz Weight 121 lb 4.068 oz Weight 123 lb 7.342 oz Weight 105 lb Physical Exam 2 Narrative: General-Awake, lethargic, acutely ill-appearing. thin and frail. Head: Normocephalic. Atraumatic. EOM intact. Temporal wasting. Dry mucous membranes. Cardiovascular: RRR. No gallops. No murmurs. No peripheral edema. Lungs: Tachypneic. Rales and rhonchi in right lungs. Skin: No jaundice. No rashes. Abdomen: Hypoactive bowel sounds, abdomen soft and nontender. Extremities: No cyanosis, edema or clubbing. Musculoskeletal: No swollen or erythematous joints. Neurological: No gross focal deficits Urinary Catheter Management: Nixon: Cath Placed During This Visit: yes Reason for Continuing Indwelling Catheter: Accurate Measurement of Urinary Output in Critically Ill Patients Urinary Catheter Date of Insertion: 07/22/24 Urinary Catheter Time of Insertion: 21:53 Data 07/24/24 04:50 07/24/24 04:50 Micro: Microbiology 07/22/24 17:42 Blood Culture - Preliminary Blood NEGATIVE TO DATE 07/22/24 17:40 Blood Culture - Preliminary Blood NEGATIVE TO DATE A&P Assessment and plan (1) Sepsis: (2) Pneumonia: (3) Acute hypernatremia: - sodium of 152 at admission -Sodium downtrending today -Continue free water replacement with D5W -Trend sodium (4) Hyperkalemia: - resolved (5) Alzheimer disease: Alzheimer's dementia, mentation currently not at baseline suspect component of acute metabolic encephalopathy -He is only oriented to self -Continue to monitor patient's mental status (6) CVA (cerebral vascular accident): -History of stroke with dysphagia -Patient reportedly on modified diet but still having difficulties -Swallow evaluation. N.p.o. for now Qualifiers: CVA mechanism: unspecified Qualified Code(s): I63.9 - Cerebral infarction, unspecified (7) Hypothyroidism: Continue Synthroid (8) Chronic kidney disease (CKD): Plan Plan for today. WBC slightly higher today likely attributed to a low recent steroids. Continue empiric antibiotics. Cultures and antigens currently negative today. Creatinine is down to 1.3. Will recheck in the a.m. Sugars are well- controlled. Sodium and potassium are now back in normal ranges. Sodium is currently at 144. Will need continued RAAT, O2 protocol and weaning, BiPAP, DuoNebs, steroids and respiratory support. Continue other home medications for hypothyroidism Code Status: DNR IVF: D5 at 50 DVT PPx: Heparin GI PPx: None ABx: Linezolid and cefepime Diet: N.p.o. Discharge plan: To be determined Attestations 2 Medical Necessity Statement*: Patient requires inpatient care for management of sepsis, pneumonia, hypoxic respiratory failure. Coding Level of Care Code Acute Code for Chg Fwd High MDM includes number and complexity of problems actively addressed during encounter, amount and/or complexity of data reviewed/ordered and described risk of complication, morbidity or mortality of management as documented Diagnoses Sepsis A41.9 Pneumonia J18.9 Acute hypernatremia E87.0 Hyperkalemia E87.5 Alzheimer disease G30.9; F02.80 CVA (cerebral vascular accident) I63.9 CVA mechanism: unspecified Hypothyroidism E03.9 Chronic kidney disease (CKD) N18.9
[2024-07-24 10:58] LABS: MRSA PCR OZH (swab) NOT DETECTED (Negative)
[2024-07-24] MEDS: dextrose 5% 1,000 ML 50 ML IV (13:32)
[2024-07-24 13:41] LABS: Glucose Point of Care 78 mg/dL (70-110)
[2024-07-24 13:41] LABS: Glucose Point of Care 78 mg/dL (70-110)
[2024-07-24] MEDS: cefepime 2,000 mg SDV 2000 MG IVP (17:05)
[2024-07-24] MEDS: water for injection-sterile 10 ML 1000 ML (17:06)
[2024-07-24 21:09] LABS: Glucose Point of Care 138 mg/dL (70-110)
[2024-07-25] VITALS (25 sets, daily range): BP systolic 141–186; BP diastolic 69–138; PULSE 69–113; RESP 16–33; TEMP 36.6–36.8; O2SAT 88–100
[2024-07-25 02:29] LABS: Glucose Point of Care 126 mg/dL (70-110)
--- NOTE | 2024-07-25 04:10 | PC.NURSE ---
Pt has been awake most of shift, mostly compliant with wearing bipap, but has remained confused t/o shift as well. Later in morning pt began attempting to crawl out of bed repeatedly. Was easily redirected for short periods, but then would attempt to get OOB again and was able to have legs dangling off of edge of bed. Pt became increasingly anxious and spoke with Dr. Cat. Made aware of increasing anxiety, new order for 1x IVP ativan.
[2024-07-25] MEDS: linezolid premix 600 MG/300 ML PREMIX 300 MG IV (05:15)
[2024-07-25] MEDS: LORazepam 2 mg/mL INJ 1 mL 0.5 MG IVP (05:17)
[2024-07-25 07:50] LABS: Glucose Point of Care 113 mg/dL (70-110)
[2024-07-25 07:50] LABS: Basophils % 0.2 %; Eosinophils % 0.1 %; Hematocrit 38.8 % (37-53); Lymphocytes # 0.7 10^3/uL (0.8-4.8); Lymphocytes % 3.5 %; Mean Corpuscular HGB Conc 29.9 g/dL (30-55); Mean Corpuscular Hemoglobin 27.8 pg (27-33); Mean Corpuscular Volume 92.8 fl (82-101); Mean Platelet Volume 12.6 fL (7.4-10.4); Monocytes # 0.7 10^3/uL (0.2-0.9); Monocytes % 3.3 %; Neutrophils # 18.57 10^3/uL (1.8-7.7); Neutrophils % 91.2 %; Nucleated Red Blood Cells % 0.1 %; Platelet Count 149 10^3/cmm (157-399); Red Blood Count 4.18 10^6/uL (3.85-5.65); Red Cell Distribution Width 16.1 % (12.1-15.1); White Blood Count 20.36 10^3/uL (3.29-11.43)
[2024-07-25 08:12] LABS: Alanine Aminotransferase 34 U/L (0-41); Albumin Level 2.7 g/dL (3.5-5.2); Alkaline Phosphatase 98 U/L (40-130); Blood Urea Nitrogen 37 mg/dL (8-23); Calcium 9.1 mg/dL (8.5-10.5); Carbon Dioxide 21 mmol/L (22-29); Chloride 105 mmol/L (98-107); Creatinine Clr Calc Pharmacy 37.3356; Globulin 4.4 g/dL (1.3-4.6); Glucose 149 mg/dL (65-115); Magnesium 2.2 mg/dL (1.7-2.3); Osmolality Calculated 303 mOsm/kg (285-295); Phosphorus 2.6 mg/dL (2.5-4.5); Sodium 141 mmol/L (136-145); Total Bilirubin 0.9 mg/dL (0.15-1.2); Total Protein 7.1 g/dL (6.6-8.7)
[2024-07-25] MEDS: budesonide 0.5 mg/2 mL Neb INHALATION (08:13)
[2024-07-25] MEDS: albuterol 2.5 mg/3 mL Neb INHALATION (08:13)
[2024-07-25 08:19] LABS: Anion Gap 19.3 (5-19); Aspartate Amino Transferase 38 U/L (0-40); Potassium 4.3 mmol/L (3.5-5.1)
[2024-07-25 08:27] LABS: Vitamin B12 805 pg/mL (232-1245)
[2024-07-25 08:28] LABS: Folate Level 6.6 ng/mL (4.5-32.2)
[2024-07-25] MEDS: heparin 5,000 unit/mL INJ 1 mL 5000 UNIT SUBCUT (08:45)
[2024-07-25 11:11] LABS: Glucose Point of Care 131 mg/dL (70-110)
[2024-07-25] MEDS: levothyroxine 100 mcg SDV 25 MCG IVP (11:26)
[2024-07-25] MEDS: pantoprazole 40 mg SDV IVP (11:26)
[2024-07-25] MEDS: dextrose 5%-sod chloride 0.9% 1,000 ML 50 ML IV (11:29)
[2024-07-25 11:51] LABS: Procalcitonin 3.17 ng/mL (0-0.5); Thyroid Stimulating Hormone 4.38 uIU/mL (0.27-4.20)
[2024-07-25 12:02] LABS: Iron 18 ug/dL (59-158)
[2024-07-25 12:28] LABS: Percent Saturation 8.1 % (20-50); Total Iron Binding Capacity 221 mcg/dl; Unsaturated Iron Binding 203 ug/dL (112-347)
[2024-07-25 12:53] LABS: Free T4 Free Thyroxine 1.01 ng/dL (0.82-1.77)
--- NOTE | 2024-07-25 13:40 | PC.NURSE ---
Report was given to Dedra in [facility]. Patient was transferred with all belongings and no complication to [facility].
--- NOTE | 2024-07-25 13:53 | PC.SOCIAL ---
IMM Update pg 2 of IMM updated and reviewed w/ patients daughter. Copy provided and copy dated, initialed and placed in chart.
[2024-07-25] MEDS: morphine 4 mg/mL SDV 1 mL IVP (14:09)
[2024-07-25] MEDS: ipratropium-albuterol 3 mL Neb INHALATION (14:20)
--- NOTE | 2024-07-25 15:34 | P.PN_ITS ---
Subjective 2 Subjective: Hospital course, labs appreciated. Patient seen laying comfortably in bed, sleeping on arrival. Wakes up to physical stimulus. On waking up is oriented to self. Not oriented to place, date of . Denies any nausea, vomiting, headache. Denies feeling hungry. Not able to tolerate diet because of coughing episode and aspiration. Appreciate urine output. Vitals/I&O/Wt Last Vital Signs Temp 98 F 07/25/24 13:59 Pulse 74 07/25/24 14:28 Resp 20 H 07/25/24 14:20 BP 155/87 07/25/24 13:59 Pulse Ox 98 07/25/24 14:20 O2 Del Method Nasal Cannula 07/25/24 14:20 O2 Flow Rate 2 07/25/24 14:20 FiO2 30 07/25/24 00:00 07/25/24 07/25/24 07/25/24 06:59 14:59 22:59 Intake Total 850 / 850 Output Total 450 / 450 Balance 400 / 400 Weight last 48 hrs Weight 55.792 kg Weight 56.5 kg Physical Exam 2 Narrative: General-Awake, lethargic, AAO x 1. thin and frail. Head: Normocephalic. Atraumatic. EOM intact. Temporal wasting. Dry mucous membranes. Cardiovascular: RRR. No gallops. No murmurs. No peripheral edema. Lungs: Tachypneic. Rales and rhonchi in right lungs. Skin: No jaundice. No rashes. Abdomen: Hypoactive bowel sounds, abdomen soft and nontender. Extremities: No cyanosis, edema or clubbing. Musculoskeletal: No swollen or erythematous joints. Neurological: No gross focal deficits Urinary Catheter Management: Nixon: Cath Placed During This Visit: yes Reason for Continuing Indwelling Catheter: Accurate Measurement of Urinary Output in Critically Ill Patients Urinary Catheter Date of Insertion: 07/22/24 Urinary Catheter Time of Insertion: 21:53 Data 07/25/24 07:35 07/25/24 07:35 A&P Assessment and plan (1) Sepsis: Present on admission. Severe sepsis secondary to commune acquired pneumonia Lactic acidosis SIRS: Leukocytosis, tachypnea, tachycardia Source: Pneumonia Endorgan damage: Respiratory failure Follow-up blood cultures, sputum culture Start broad-spectrum antibiotics with cefepime and linezolid history of MRSA positive and sputum culture growing Pseudomonas. MRSA swab currently negative. Telemetry monitoring Strict I's and O's Supportive care (2) Pneumonia: Concern for aspiration pneumonia. Antibiotic as above. Supplementation keeping saturation over 92%. Appreciate speech evaluation. (3) Acute hypernatremia: Most likely in setting of dehydration from poor oral intake. D5 NS at 75 cc/h. Monitor sodium level every 6 hours. (4) Hyperkalemia: - resolved (5) Alzheimer disease: Alzheimer's dementia, mentation currently not at baseline suspect component of acute metabolic encephalopathy -He is only oriented to self -Continue to monitor patient's mental status (6) CVA (cerebral vascular accident): -History of stroke with dysphagia -Patient reportedly on modified diet but still having difficulties -Swallow evaluation. N.p.o. for now Qualifiers: CVA mechanism: unspecified Qualified Code(s): I63.9 - Cerebral infarction, unspecified (7) Hypothyroidism: Continue Synthroid. Switch to IV. Check thyroid panel. H (8) Chronic kidney disease (CKD): (9) Goals of care, counseling/discussion: Plan Plan for the day. Had detailed goals of care discussions with patient's daughter/BEKA Song over the phone. We discussed patient's poor mentation at baseline because of worsening dementia, recent stroke. Discussed patient's reason for presentation is dehydration from poor oral intake which is most likely in setting of severe dementia. As per patient's daughter patient at baseline has poor quality of life and is usually dependent on ADLs. We discussed unfortunately even after resolving dehydration there is a high likelihood of patient presenting back due to dehydration or hypernatremia. Discussed further options going forward would be continuation of current cefepime with realistic expectations of readmission within next 2 to 4 weeks for the same reason. Second option discussed was possible transition to hospice. Third option discussed was PEG tube placement. Daughter states she had discussed in detail with further family members and would not want any heroic measures. She understands the reasoning being severe dementia and wants to go ahead and set up hospice. We discussed hospice would mean transition back to retirement will they will restart his feeds as per pleasurable, let nature takes its own course which could mean eventually . Daughter verbalized understanding and wants to go ahead with the same. No further blood work. Stop IV fluids after completion of current bag. Stop IV antibiotics, nebulization. Start on regular diet when possible. Transfer to [facility]. Case management alerted. Attestations 2 Medical Necessity Statement*: Requires further hospitalization while comfort care is set up in a patient admitted for worsening altered mental status in setting of severe dementia, recent stroke, hypernatremia from poor oral intake Diagnoses Sepsis A41.9 Pneumonia J18.9 Acute hypernatremia E87.0 Hyperkalemia E87.5 Alzheimer disease G30.9; F02.80 CVA (cerebral vascular accident) I63.9 CVA mechanism: unspecified Hypothyroidism E03.9 Chronic kidney disease (CKD) N18.9 Goals of care, counseling/discussion Z71.89
[2024-07-25 16:52] LABS: Glucose Point of Care 122 mg/dL (70-110)
[2024-07-25 20:34] LABS: Glucose Point of Care 49 mg/dL (70-110)
--- NOTE | 2024-07-25 20:37 | PC.NURSE ---
THIS RN WAS NOTIFIED OF A LOW BLOOD SUGAR OF 49. THIS RN WENT TO ASSESS PT AND PT WAS NOT HAVING ANY SYMPTOMS. PT DOES NOT HAVE IV ACCESS AND DOES NOT WANT TO BE POKED AGAIN. THIS RN OFFERED THE PT JUICE AND PUDDING WHICH THE PT REFUSED. THIS RN WAS ABLE TO GIVE THE PT SOME HONEY SUBLINGUAL. THIS RN MADE THE PT COMFORTABLE AND WILL CONTINUE TO MONITOR AND KEEP THE PT COMFORTABLE UNTIL THE END OF THIS RNS SHIFT.
[2024-07-26 06:18] LABS: Glucose Point of Care 116 mg/dL (70-110)
[2024-07-26 07:43] VITALS: BP 167/78; PULSE 74; RESP 18; TEMP 36.3; O2SAT 94
[2024-07-26] MEDS: morphine 10 mg/0.5 mL oral liq UD SUBLINGUAL ×2 (09:14→11:07)
--- NOTE | 2024-07-26 10:38 | P.DS_ITS ---
Discharge Providers Date of Admission: 07/22/24 18:29 Date of Discharge: July 26, 2024 Attending Provider at Admission: Mitali Hilton MD Attending Provider at Discharge: Luisito Blanton MD Primary Care Provider: Tam Farah DO Diagnoses at Discharge Discharge Diagnosis (1) Sepsis: Status: Acute (2) Pneumonia: Status: Acute (3) Acute hypernatremia: Status: Acute (4) Hyperkalemia: Status: Acute (5) Alzheimer disease: Status: Acute (6) CVA (cerebral vascular accident): Status: Chronic Qualifiers: CVA mechanism: unspecified Qualified Code(s): I63.9 - Cerebral infarction, unspecified (7) Hypothyroidism: Status: Chronic (8) Chronic kidney disease (CKD): Status: Chronic (9) Goals of care, counseling/discussion: Status: Acute Reason for Visit Reason for Visit: sob Brief History: History as per HPI: Des Fuller is a 89 year old male with a past medical history significant for chronic hypoxic respiratory failure stroke with dysphagia, coronary artery disease, hypertension, Alzheimer's dementia, hypothyroidism, benign prostatic hypertrophy, and multiple other comorbidities who presents to the emergency department with respiratory distress. Upon assessment, patient has a somewhat poverty of words and is requiring BiPAP. Family, daughter, is bedside and supportive. She helps provide collateral information. She reports patient's been ill for nearly a week. She states initially it started as decreased mentation and increased sleep throughout the day. She noted that he was weak throughout the day which is progressively worsened over the past week. His respiratory status reportedly declined today for which EMS was called. Per EMS report, he was found to be in respiratory distress. He was placed on his CPAP with improvement in respiratory status. In the emergency department, patient was found to require BiPAP. Labs revealed leukocytosis, hyponatremia, hyperkalemia and multiple other metabolic derangements. Chest x-ray revealed small bilateral pleural effusions and small patchy infiltrate in right base. Daughter does note history of dysphagia which she states has been an issue at the nursing facility. She states that he is on thickened liquids but there is been poor oral intake. She notes that in the past week it has been exceptionally poor. Hospital Course Hospital Course Patient patient was admitted to the hospital for further evaluation and management of altered setting of hypernatremia, sepsis due to right lower. He was started on treatment with IV fluids resolved mentation remained poor. He was continued on IV antibiotics. Patient was tried on diet multiple times as per speech evaluation but he went to have risks for aspiration. Given his poor mentationa detailed goals of care discussions were done with patient's daughter/Ms. AlejoBEKA over the phone. We discussed patient's poor mentation at baseline because of worsening dementia, recent stroke. Discussed patient's reason for presentation is dehydration from poor oral intake which is most likely in setting of severe dementia. As per patient's daughter patient at baseline has poor quality of life and is usually dependent on ADLs. We discussed unfortunately even after resolving dehydration there is a high likelihood of patient presenting back due to dehydration or hypernatremia. Discussed further options going forward would be continuation of current cefepime with realistic expectations of readmission within next 2 to 4 weeks for the same reason. Second option discussed was possible transition to hospice. Third option discussed was PEG tube placement. Daughter states she had discussed in detail with further family members and would not want any heroic measures. She understands the reasoning being severe dementia and wants to go ahead and set up hospice. We discussed hospice would mean transition back to assisted will they will restart his feeds as per pleasurable, let nature takes its own course which could mean eventually . Daughter verbalized understanding and wants to go ahead with the same. He has been discharged back to SNF with hospice place. Physical Exam Narrative: General-Awake, lethargic, AAO x 1. thin and frail. Head: Normocephalic. Atraumatic. EOM intact. Temporal wasting. Dry mucous membranes. Cardiovascular: RRR. No gallops. No murmurs. No peripheral edema. Lungs: Tachypneic. Rales and rhonchi in right lungs. Skin: No jaundice. No rashes. Abdomen: Hypoactive bowel sounds, abdomen soft and nontender. Extremities: No cyanosis, edema or clubbing. Musculoskeletal: No swollen or erythematous joints. Neurological: No gross focal deficits Urinary Catheter Management: Nixon: Cath Placed During This Visit: yes Reason for Continuing Indwelling Catheter: Hospice/Comfort/Palliative Care Urinary Catheter Date of Insertion: 07/22/24 Urinary Catheter Time of Insertion: 21:53 Discharge Data Studies Completed and Pending Completed Studies During Hospitalization Category Date Time Status XR chest 1V portable [id number] Stat Exams 07/22/24 16:22 Completed Pending at discharge Category Date Time Status Blood Culture Stat Lab 07/22/24 17:42 Results Sputum Culture and Gram Stain Routine Lab 07/22/24 20:26 Uncollected Radiology Impressions Chest X-Ray 07/22/24 16:22 IMPRESSION: 1. There are small bilateral pleural effusions. 2. Small patchy infiltrate in the right base is again seen. Left lung is now clear. Laboratory Results WBC 20.36 10^3/uL (3.29-11.43) H 07/25/24 07:35 RBC 4.18 10^6/uL (3.85-5.65) 07/25/24 07:35 Hgb 11.60 g/dL (11.27-16.99) 07/25/24 07:35 Hct 38.8 % (37-53) 07/25/24 07:35 MCV 92.8 fl (82-101) 07/25/24 07:35 MCH 27.8 pg (27-33) 07/25/24 07:35 MCHC 29.9 g/dL (30-55) L 07/25/24 07:35 RDW 16.1 % (12.1-15.1) H 07/25/24 07:35 Plt Count 149 10^3/cmm (157-399) L 07/25/24 07:35 MPV 12.6 fL (7.4-10.4) H 07/25/24 07:35 Neut % (Auto) 91.2 % 07/25/24 07:35 Lymph % (Auto) 3.5 % 07/25/24 07:35 Davidson % (Auto) 3.3 % 07/25/24 07:35 Eos % (Auto) 0.1 % 07/25/24 07:35 Baso % (Auto) 0.2 % 07/25/24 07:35 Neut # (Auto) 18.57 10^3/uL (1.8-7.7) H 07/25/24 07:35 Lymph # (Auto) 0.7 10^3/uL (0.8-4.8) L 07/25/24 07:35 Davidson # (Auto) 0.7 10^3/uL (0.2-0.9) 07/25/24 07:35 Eos # (Auto) 0.0 10^3/uL (0.0-0.8) 07/25/24 07:35 Baso # (Auto) 0.0 10^3/uL (0.0-0.1) 07/25/24 07:35 Nucleated RBC % (auto) 0.1 % 07/25/24 07:35 Total Counted 100 (0-100) 07/24/24 04:50 Atypical Lymphs % 2.0 % (0-5) 07/24/24 04:50 Absolute Neutrophils 17.9 10^3/cmm (1.4-6.5) H 07/24/24 04:50 Segmented Neutrophils 94 % 07/24/24 04:50 Band Neutrophils 1.0 % 07/24/24 04:50 Absolute Lymphocytes 0.8 10^3/cmm (1.2-3.4) L 07/24/24 04:50 Lymphocytes (Manual) 2 % 07/24/24 04:50 Monocytes (Manual) 2.0 % 07/24/24 04:50 Absolute Monocytes 0.4 10^3/cmm (0.1-0.6) 07/24/24 04:50 Eosinophils (Manual) 0 % 07/24/24 04:50 Absolute Eosinophils 0.0 10^3/cmm (0.0-0.7) 07/24/24 04:50 Basophils (Manual) 0.0 % 07/24/24 04:50 Absolute Basophils 0.0 10^3/cmm (0.0-0.2) 07/24/24 04:50 Nucleated RBCs # 0.0 /100WBC 07/25/24 07:35 Platelet Estimate Normal (Normal) 07/24/24 04:50 Specimen Type Arterial 07/22/24 16:19 Sample Site Radial, left 07/22/24 16:19 ABG pH 7.35 (7.35-7.45) 07/22/24 16:19 ABG pCO2 42.6 mmHg (35-45) 07/22/24 16:19 ABG pO2 77.9 mmHg (80.0-100.0) L 07/22/24 16:19 ABG PO2/FiO2 Ratio 129 07/22/24 16:19 ABG HCO3 23.7 mmol/L (22-26) 07/22/24 16:19 ABG O2 Saturation 94.0 07/22/24 16:19 ABG Base Excess -1.9 mmol/L (-2.0-2.0) 07/22/24 16:19 Martin Test Pos 07/22/24 16:19 A-a O2 Gradient 37.8 mmHg (5-10) H 07/22/24 16:19 Hematocrit 44.1 % (42-52) 07/22/24 16:19 Hgb O2 Saturation 91.9 % (95-100) L 07/22/24 16:19 Carboxyhemoglobin 1.1 %THgb (0.4-20.1) 07/22/24 16:19 Methemoglobin 1.0 % (0.4-1.5) 07/22/24 16:19 Total Hemoglobin 14.4 g/dL (14-18) 07/22/24 16:19 Sodium 158.0 mmol/L (131-143) H 07/22/24 16:19 Potassium 4.5 mmol/L (3.5-5.0) 07/22/24 16:19 Glucose 190.0 mg/dL (70-115) H 07/22/24 16:19 Ionized Calcium 1.3 mmol/L (1.1-1.4) 07/22/24 16:19 O2 Delivery Device Bipap 07/22/24 16:19 FiO2 60.0 % 07/22/24 16:19 Dieing Out Machine Operator ID Cak 07/22/24 16:19 Sodium 141 mmol/L (136-145) 07/25/24 07:35 Potassium 4.3 mmol/L (3.5-5.1) 07/25/24 07:35 Chloride 105 mmol/L (98-107) 07/25/24 07:35 Carbon Dioxide 21 mmol/L (22-29) L 07/25/24 07:35 Anion Gap 19.3 (5-19) H 07/25/24 07:35 BUN 37 mg/dL (8-23) H 07/25/24 07:35 Creatinine 1.1 mg/dL (0.7-1.2) 07/25/24 07:35 GFR Calculation Not Reportable 07/25/24 07:35 Glucose 149 mg/dL (65-115) H 07/25/24 07:35 POC Glucose 116 mg/dL (70-110) H 07/26/24 05:48 Calculated Osmolality 303 mOsm/kg (285-295) H 07/25/24 07:35 Lactic Acid 6.4 mmol/L (0.5-2.2) H* 07/22/24 16:30 Lactic Acid (Sepsis) 3.9 mmol/L (0.5-2.2) H 07/22/24 18:50 Calcium 9.1 mg/dL (8.5-10.5) 07/25/24 07:35 Phosphorus 2.6 mg/dL (2.5-4.5) 07/25/24 07:35 Magnesium 2.2 mg/dL (1.7-2.3) 07/25/24 07:35 Iron 18 ug/dL (59-158) L 07/25/24 07:35 TIBC 221 mcg/dl 07/25/24 07:35 % Saturation 8.1 % (20-50) L 07/25/24 07:35 Unsat Iron Binding 203 ug/dL (112-347) 07/25/24 07:35 Total Bilirubin 0.9 mg/dL (0.15-1.2) 07/25/24 07:35 AST 38 U/L (0-40) 07/25/24 07:35 ALT 34 U/L (0-41) 07/25/24 07:35 Alkaline Phosphatase 98 U/L (40-130) 07/25/24 07:35 Troponin T Baseline 101 ng/L (0-15) H* 07/22/24 16:30 Troponin T 120 Minute 96.62 ng/L (0-15) H 07/22/24 18:50 Delta Troponin T -4.38 ABS# (0-10) L 07/22/24 18:50 Troponin T Hi Sens 6Hr 81.05 ng/L (0-15) H 07/23/24 01:00 Troponin T Hi Sens 6Hr Delta -19.95 ng/L (0-12) L 07/23/24 01:00 C-Reactive Protein 113.7 mg/L (0.0-4.9) H 07/22/24 16:30 NT-Pro-B Natriuret Pep > 43872 pg/mL (0-450) H 07/22/24 16:30 Total Protein 7.1 g/dL (6.6-8.7) 07/25/24 07:35 Albumin 2.7 g/dL (3.5-5.2) L 07/25/24 07:35 Globulin 4.4 g/dL (1.3-4.6) 07/25/24 07:35 Vitamin B12 805 pg/mL (232-1245) 07/25/24 07:35 Folate 6.6 ng/mL (4.5-32.2) 07/25/24 07:35 Procalcitonin 3.17 ng/mL (0-0.5) H 07/25/24 07:35 TSH 4.38 uIU/mL (0.27-4.20) H 07/25/24 07:35 Free T4 1.01 ng/dL (0.82-1.77) 07/25/24 07:35 Urine Color Yellow (Yellow) 07/22/24 22:35 Urine Appearance Clear (CLEAR) 07/22/24 22:35 Urine pH 5.0 (5-7) 07/22/24 22:35 Ur Specific Hodge 1.026 (1.005-1.030) 07/22/24 22:35 Urine Protein 2+ (Negative) A 07/22/24 22:35 Urine Glucose (UA) Negative (Normal) 07/22/24 22: Urine Ketones Negative (Negative) 07/22/24 22:35 Urine Blood Negative (Negative) 07/22/24 22:35 Urine Nitrate Negative (Negative) 07/22/24 22:35 Urine Bilirubin Negative (Negative) 07/22/24 22:35 Urine Urobilinogen 0.2 mg/dL (Negative) 07/22/24 22:35 Ur Leukocyte Esterase Negative (Negative) 07/22/24 22:35 Urine RBC 0-2 /hpf (0-2) 07/22/24 22:35 Urine WBC 0-5 /hpf (0-5) 07/22/24 22:35 Ur Squamous Epith Cells 0-5 /hpf (0-5) 07/22/24 22:35 Amorphous Sediment Not Reportable 07/22/24 22:35 Urine Bacteria None seen /hpf (NONE) 07/22/24 22:35 Hyaline Casts 11.97 /lpf 07/22/24 22:35 Nasal MRSA (PCR) Not detected (Negative) 07/24/24 09:40 Adenovirus (PCR) Not detected (NOT DETECT) 07/22/24 17: C. pneumoniae DNA (PCR) Not detected (NOT DETECT) 07/22/24 17: Coronavirus 229E (PCR) Not detected (NOT DETECT) 07/22/24 17: Human Metapneumovir PCR Not detected (NOT DETECT) 07/22/24 17: Influenza A (H1) PCR Not detected (NOT DETECT) 07/22/24: Influ A (H1/09) PCR Not detected (NOT DETECT) 07/22/24: Influenza A (H3) PCR Not detected (NOT DETECT) 07/22/24: Influenza Type A (PCR) Not detected (NOT DETECT) 07/22/24: Influenza Type B (PCR) Not detected (NOT DETECT) 07/22/24: M. pneumoniae (PCR) Not detected (NOT DETECT) 07/22/24 17: Parainfluenza 1 (PCR) Not detected (NOT DETECT) 07/22/24 17: Parainfluenza 2 (PCR) Not detected (NOT DETECT) 07/22/24 17: Parainfluenza 3 (PCR) Not detected (NOT DETECT) 07/22/24 17: Parainfluenza 4 (PCR) Not detected (NOT DETECT) 07/22/24 17: RSV Type A (PCR) Not detected (NOT DETECT) 07/22/24: RSV Type B (PCR) Not detected (NOT DETECT) 07/22/24 17: Entero/Rhino (PCR) Not detected (NOT DETECT) 07/22/24 17: SARS-CoV-2 (PCR) Not detected (NOT DETECT) 07/22/24 17: Vitals Last Vital Signs Temp 97.4 F L 07/26/24 07:43 Pulse 74 07/26/24 07:43 Resp 18 07/26/24 07:43 BP 167/78 07/26/24 07:43 Pulse Ox 94 07/26/24 07:43 O2 Del Method Nasal Cannula 07/26/24 07:43 O2 Flow Rate 2 07/25/24 14:20 FiO2 30 07/25/24 00:00 Discharge Plan Discharge Patient Disposition: Hospice - Medical Facility Condition: Stable Prescriptions: Continued levothyroxine 50 mcg tablet 50 mcg PO QAM morphine concentrate 100 mg/5 mL (20 mg/mL) Solution See Rx Instructions .ROUTE .COMPLEX PRN (Reason: Pain) Rx Instructions: Give 0.5ml sublingual every 4 hours as needed if unable to swallow other oral pain medications. ondansetron HCl 4 mg tablet 4 mg PO Q4H PRN (Reason: Nausea And Vomiting) oxycodone-acetaminophen 5-325 mg tablet 1 tab PO Q4H PRN (Reason: Pain) albuterol sulfate 2.5 mg /3 mL (0.083 %) solution for nebulization 2.5 mg inhalation Q4H PRN (Reason: sob) omeprazole 20 mg capsule,delayed release(DR/EC) 20 mg PO QAM acetaminophen 325 mg Tablet 650 mg PO Q6H PRN (Reason: FOR FEVER) magnesium hydroxide [Milk of Magnesia] 400 mg/5 mL Suspension 30 ml PO DAILY PRN (Reason: Constipation) bisacodyl [Dulcolax (bisacodyl)] 10 mg Suppository 10 mg LA DAILY PRN (Reason: Constipation) Fleet Enema 19-7 gram/118 mL Enema 118 ml LA DAILY PRN (Reason: Constipation) Biofreeze (menthol) 4 % Gel 1 applic TOPICAL QID PRN (Reason: PAIN OR MUSCLE SPASMS) Discharge Orders: Discharge Order (Routine); Ordered 07/26/24 Ordered By: Luisito Blanton Referrals: [facility] [Outside] Tam Farah DO [Primary Care Provider] - [facility], [Occupational Therapist] - Patient Instructions: Hospice Care (GEN), Opioid Safety Activity Restrictions/Additional Instructions: Hospice care Discharge Attestations Time Spent in Discharge Care*: greater than 30 min Specific Discharge Activities: educating and/or supporting family/caregiver, discussing with pcp/other providers, discussing with rn case management/social workers/dc planners, documenting/other paperwork and evaluating patient/reviewing data Status at Discharge: Cognitive status at discharge: severely impaired cognition , Behavioral status at discharge: cooperative , Functional status at discharge: bed bound , Overall status at discharge: patient is back to baseline Quality Metrics Clinical Quality Measures [ No reported AMI, CVA or VTE this stay] Coding Level of Care Code 22283 Total time (in minutes) for Discharge: 50 Diagnoses Sepsis A41.9 Pneumonia J18.9 Acute hypernatremia E87.0 Hyperkalemia E87.5 Alzheimer disease G30.9; F02.80 CVA (cerebral vascular accident) I63.9 CVA mechanism: unspecified Hypothyroidism E03.9 Chronic kidney disease (CKD) N18.9 Goals of care, counseling/discussion Z71.89
[2024-07-26 11:27] LABS: Glucose Point of Care 155 mg/dL (70-110)
--- NOTE | 2024-07-26 12:09 | PC.NURSE ---
Report called to Maylin at [facility]
[2024-07-26 13:31] LABS: SARS Covid-2 Antigen Negative (Negative)
[2024-07-26 13:46] VITALS: BP 167/78; PULSE 74; RESP 18; TEMP 36.3; O2SAT 94
== END 2024-07-26 13:47 | disposition hospice, inpatient (51) | DRG 871 ==
LOC: ER 19:53 → ICU 20:00 → MEDSURG 07-25 13:43
PROVIDERS: Family Medicine; Internal Medicine; Student in an Organized Health Care Education/Training Program; Admitting Provider Internal Medicine; Emergency Provider Emergency Medicine; PCP Internal Medicine; Visit Provider Student in an Organized Health Care Education/Training Program
DX: A41.9 Sepsis, unspecified organism (principal); J18.9 Pneumonia, unspecified organism; J69.0 Pneumonitis due to inhalation of food and vomit; J96.21 Acute and chronic respiratory failure with hypoxia; E87.0 Hyperosmolality and hypernatremia; R65.20 Severe sepsis without septic shock; G30.9 Alzheimer's disease, unspecified; F02.80 Dementia in other diseases classified elsewhere, unspecified severity, without behavioral disturbance, psychotic disturbance, mood disturbance, and anxiety; I69.991 Dysphagia following unspecified cerebrovascular disease; R13.10 Dysphagia, unspecified; E03.9 Hypothyroidism, unspecified; N18.9 Chronic kidney disease, unspecified; I25.10 Atherosclerotic heart disease of native coronary artery without angina pectoris; E87.5 Hyperkalemia; E86.0 Dehydration; K21.9 Gastro-esophageal reflux disease without esophagitis; Z95.5 Presence of coronary angioplasty implant and graft
CPT/HCPCS: 36415; 36416; 36600; 51702; 71045; 80051; 80053; 80069; 81001; 82330; 82607; 82746; 82805; 82962; 83540; 83550; 83605; 83735; 83880; 84100; 84145; 84439; 84443; 84484; 85007; 85025; 85027; 86140; 87040; 87426; 87486; 87581; 87633; 92610; 93005; 94640; 94660; 94664; 96365; 96372; 96374; 96375; 96376; 99291; J0131; J0692; J1644; J1815; J2020; J2060; J2270; J2470; J2919; J3490; J7030; J7042; J7070; J7613; J7626